=== PATIENT | male | born 1940 | race Caucasian/White ===

== ENCOUNTER 2018-09-20 15:54 | Emergency (ER) | payer MEDICARE, BC, SELFPAY ==
[2018-09-20 16:13] VITALS: BP 160/81; PULSE 92; RESP 16; TEMP 36.8; O2SAT 95
--- NOTE | 2018-09-20 16:22 | W.ED.GENAD ---
Discharge Plan Disposition Patient Disposition: HOME Condition: Fair Discharge Details Chief Complaint: GenMedical Clinical Impression: Dry mucous membranes, Epistaxis, Dry skin, Laceration Primary Care Provider: Madeline,Local ED Provider: Gloria Neri Home Meds and New Rx's Prescriptions: Continued aspirin [Aspir-81] 81 MG tablet,delayed release (DR/EC) 81 mg PO DAILY RF: 0 pantoprazole 40 MG tablet,delayed release (DR/EC) 1 tab PO DAILY RF: 0 hydrochlorothiazide 12.5 MG capsule 12.5 mg PO DAILY RF: 0 rosuvastatin [Crestor] 10 MG tablet 10 mg PO QPM RF: 0 lorazepam 0.5 MG tablet 0.5 mg PO QPM PRN (Reason: Sleep) Qty: 3 RF: 0 azithromycin [Zithromax TRI-FRANCES] 500 MG tablet 500 mg PO DAILY 5 Days RF: 0 Discharge Instructions Instructions: Laceration (ED), Nosebleed (ED) Additional Instructions: Encourage hydration. Tylenol and/or ibuprofen as needed for discomfort. Please begin nasal saline to both nares multiple times daily for your recurrent nosebleeds. If you develop sinus pain, headaches, fever/chills or other new/worsening symptoms please seek care urgently for this 1 In regard to the laceration in her left hand, please try to moisturize her skin more frequently. He may keep this covered to help prevent further infection. Please monitor for signs of infection including redness, warmth, drainage, increased pain, fever/chills. If this arise please seek care urgently once again. Please follow-up with primary care in 1-2 weeks for reevaluation of symptoms persist Discharge Data Discharge Date/Time-TO BE ENTERED AT DEPARTURE: 09/20/18 16:49 Medical Decision Making Patient is an 78-year-old male presenting today for evaluation of superficial laceration he sustained to the tip of the left thumb a few days ago as well as patient has recurrent sinusitis. He believes that he may have cut his left thumb when flossing his teeth. Denies any altered sensation. Is concerned that it is so tender that it may be infected. On exam, patient appears to have a crack in his skin at the distal aspect of the left thumb. No surrounding erythema, warmth, drainage. Wound appears to be healing well. I did advise using a thick lotion on the skin as his skin appears quite dry. He is up in covering this wound. I am concerned that his primary source of discomfort has been from him using the thumb and applying pressure over the wound. We did discuss the signs symptoms of infection when to seek care urgently once again for this. Nursing staff covered bacitracin and a Band-Aid to help protect the thumb and help with this,. In regard to his concern for sinus issues, patient reports that he just recently stopped a course of doxycycline. Patient was on a 10-day course of doxycycline prescribed by his primary care for concern for sinusitis. He denies any facial pain or sinus pressure. Rather, he is having recurrent left-sided epistaxis particularly after blowing the nose. Denies any fevers or chills. Denies sore throat or ear pain. Endorses a very mild cough which just recently began. On exam, patient does have clot in the left naris. No pain on palpation over his sinuses. Remainder of the exam is benign, lung lockhart are clear Advised at this point his symptoms seem most consistent with dry mucous membranes are likely leading to his recurrent epistaxis. Not see any evidence of sinusitis at this time and advised against recurrent antibiotics. Patient goes to [place] for his primary care although he lives here. I did offer him a local primary care physician which she has declined. I advised hydrating the mucous membranes with nasal saline. We discussed signs symptoms of infection of the left thumb and when to seek care urgently once again. All of his questions and concerns were addressed and he is in agreement this plan HPI General Mode of arrival: ambulatory. Date/Time Provider Initiated Documentation: 09/20/18 16:10. Limitations to Documentation: no limitations. Information obtained by: patient. History of Present Illness 78 year old M presents to the emergency department with the chief complaint of laceration left thumb, sinusitis, described as mild, Quality is described as aching (tip of left thumb with pressure applied over wound), and is localized to the left and upper extremity. Patient reports no radiation. Patient started experiencing this day(s) and it has been constant. No relieving factors improve symptom(s), No exacerbating factors reported . Patient notes cough; denies chest pain, fever/chills, headaches, loss of appetite, nausea/vomiting, rash, shortness of breath and weakness. Patient did receive the following treatments prior to arrival, none Related Data Home Medications Medication Instructions Recorded Confirmed aspirin [Aspir-81] 81 mg PO DAILY 05/27/14 06/07/17 pantoprazole 1 tab PO DAILY 06/24/15 06/07/17 azithromycin [Zithromax TRI-FRANCES] 500 mg PO DAILY 5 Days tab 06/07/17 hydrochlorothiazide 12.5 mg PO DAILY 06/07/17 06/07/17 lorazepam 0.5 mg PO QPM PRN #3 tab 06/07/17 rosuvastatin [Crestor] 10 mg PO QPM 06/07/17 06/07/17 Previous Rx's Medication Instructions Recorded azithromycin [Zithromax TRI-FRANCES] 500 mg PO DAILY 5 Days tab 06/07/17 lorazepam 0.5 mg PO QPM PRN #3 tab 06/07/17 Allergies Allergy/AdvReac Type Severity Reaction Status Date / Time amoxicillin [Amoxicillin] AdvReac Mild Skin Rash Unverified 06/07/17 14:04 Penicillins AdvReac Unknown as a kid Unverified 06/07/17 14:04 General Stated Complaint: GenMedical ANIBAL: 4 Review of Systems Constitutional Reports as per HPI and Denies headache(s) Eyes Reports as per HPI, Denies eye discharge and Denies irritation ENT Reports as per HPI, Denies change in voice, Denies headache(s), Reports epistaxis, Reports nasal congestion, Denies sinus pain, Denies sinus pressure, Denies sore throat, Denies throat swelling and Denies tongue swelling Cardiovascular Reports as per HPI, Denies chest pain and Denies dyspnea Respiratory Reports as per HPI, Reports cough (mild, just began today) and Denies dyspnea Gastrointestinal Reports as per HPI, Denies abdominal pain, Denies change in bowel habits, Denies nausea and Denies vomiting Integumentary/Breasts Reports as per HPI, Denies rash and Reports wounds (superficial wound left thumb) Neurologic Denies headache(s) Allergic/Immunologic Denies throat swelling and Denies tongue swelling [facility] Social History Smoking/Tobacco Use Status: Never Exam Const General: cooperative, healthy appearing, comfortable, no acute distress, well developed and well groomed Nutritional Appearance: average body habitus and well nourished Orientation: alert and awake [facility] Head: normal to inspection, normocephalic and atraumatic Ears: hearing grossly normal bilaterally, external ears normal and TM's normal bilaterally General nose exam: external nose normal and nares abnormal (clot notedin left nares, no active bleeding) Face and sinus: normal facial exam, sinuses nontender and face symmetric Mouth: oral mucosae normal, lip normal, tongue normal, oropharynx normal and moist mucous membranes Teeth and gingiva: dentition normal Throat: posterior oropharynx normal, tonsils normal and uvula midline Eyes General: appearance normal, both eyes and all related structures Neck Neck: normal visual inspection, full ROM, no lymphadenopathy and no meningeal signs Resp Effort & Inspection: normal respiratory effort, able to speak in complete sentences and no respiratory distress Auscultation: clear to auscultation bilaterally, no rales, no rhonchi and no wheezes Cardio Rate: regular rate Rhythm: regular rhythm Heart Sounds: S1 normal and S2 normal Skin General skin exam: no erythema (no surrounding erythema, warmth, discharge) Trauma: laceration (superficial 4mm crack in skin over distal left thumb) Neuro General: alert and awake Cognition: normal cognition Speech: speech normal Gait: normal gait Extrem Left upper extremity: full ROM, normal capillary refill and no joint enlargement; abnormal to inspection (laceration as above) Psych Appearance: grossly normal and well kempt Mental Status: mental status grossly normal Speech and Movement: speech and movement normal Course Vital Signs Temperature 36.8 C 09/20/18 16:13 Pulse 92 H 09/20/18 16:13 Respiratory Rate 16 09/20/18 16:13 Blood Pressure 160/81 H 09/20/18 16:13 Pulse Oximetry 95 09/20/18 16:13 Temperature 36.8 C 09/20/18 16:13 Temperature Source Temporal Artery Scan 09/20/18 16:13 Pulse 92 H 09/20/18 16:13 Respiratory Rate 16 09/20/18 16:13 Blood Pressure 160/81 H 09/20/18 16:13 Blood Pressure Position Sitting 09/20/18 16:13 Pulse Oximetry 95 09/20/18 16:13 Oxygen Delivery Method Room Air 09/20/18 16:13 Oxygen Flow Rate 0 09/20/18 16:13 Pain Level 0 09/20/18 16:13
== END 2018-09-20 16:49 | disposition home or self-care (01) ==
LOC: ER 16:50
PROVIDERS: Emergency Provider Physician Assistant
DX: R04.0 Epistaxis (principal); S61.012A Laceration without foreign body of left thumb without damage to nail, initial encounter; W45.8XXA Other foreign body or object entering through skin, initial encounter; L98.8 Other specified disorders of the skin and subcutaneous tissue
CPT/HCPCS: 99282

== ENCOUNTER 2019-01-06 15:15 | Emergency (ER) | payer MEDICARE, BC, SELFPAY ==
[2019-01-06 15:22] VITALS: BP 156/64; PULSE 85; RESP 20; TEMP 36.6; O2SAT 98
--- NOTE | 2019-01-06 15:47 | ED.GENADUL_ITS ---
Discharge Plan Disposition Patient Disposition: HOME Condition: Stable Discharge Details Chief Complaint: Vascular Clinical Impression: History of Raynaud's syndrome Primary Care Provider: Madeline,Local ED Provider: Christine Lombardi Home Meds and New Rx's Prescriptions: Continued aspirin [Aspir-81] 81 MG tablet,delayed release (DR/EC) 81 mg PO DAILY RF: 0 pantoprazole 40 MG tablet,delayed release (DR/EC) 1 tab PO DAILY RF: 0 hydrochlorothiazide 12.5 MG capsule 12.5 mg PO DAILY RF: 0 rosuvastatin [Crestor] 10 MG tablet 10 mg PO QPM RF: 0 lorazepam 0.5 MG tablet 0.5 mg PO QPM PRN (Reason: Sleep) Qty: 3 RF: 0 azithromycin [Zithromax TRI-FRANCES] 500 MG tablet 500 mg PO DAILY 5 Days RF: 0 Discharge Instructions Instructions: Raynaud Disease (ED) Additional Instructions: Take your regular medications as directed. Follow-up with your primary care doctor in 1 week for reevaluation. Return immediately to the emergency department with any worsening or concerning symptoms. Discharge Data Discharge Date/Time-TO BE ENTERED AT DEPARTURE: 01/06/19 15:56 Discharge Physician: Christine Lombardi Medical Decision Making 78-year-old male who presents with a complaint of right second,third, and fourth finger white discoloration to fingers that occurred prior to arrival and is now resolved. On patient's arrival to the emergency department, and after discussion with triage nurse, he was able to remember that he has a history of raynaud's syndrome. He states he could not remember the name of this syndrome while he was home and came to the emergency department for evaluation of this but states this is now resolved and states he would like to go home at this time. Patient is neurovascularly intact. There is no sign of trauma, infection or vascular abnormality noted to fingers of right hand. He is instructed to call his primary care doctor for reevaluation and return here anytime if worse. HPI General Mode of arrival: ambulatory . Date/Time Provider Initiated Documentation: 01/06/19 15:39 . Limitations to Documentation: no limitations . Information obtained by: patient . HPI Narrative: Pt is an 78yo M w/ a h/o Raynaud's syndrome who presents to the ED w/ a c/o a brief episode of numbness and white discoloration in R 2nd-4th fingers, most pronounced in the 3rd fingertip, a few hours ago. States the symptoms are now resolved. Pt states he was diagnosed with Raynaud's syndrome many years ago and could not remember the name of this condition while at home and came to the ER [facility] for diagnosis of this and reassurance. Pt denies any acute complaints at this time, injury, fever, numbness, tingling, pain. Related Data Home Medications Medication Instructions Recorded Confirmed aspirin [Aspir-81] 81 mg PO DAILY 05/27/14 06/07/17 pantoprazole 1 tab PO DAILY 06/24/15 06/07/17 azithromycin [Zithromax TRI-FRANCES] 500 mg PO DAILY 5 Days tab 06/07/17 hydrochlorothiazide 12.5 mg PO DAILY 06/07/17 06/07/17 lorazepam 0.5 mg PO QPM PRN #3 tab 06/07/17 rosuvastatin [Crestor] 10 mg PO QPM 06/07/17 06/07/17 Previous Rx's Medication Instructions Recorded azithromycin [Zithromax TRI-FRANCES] 500 mg PO DAILY 5 Days tab 06/07/17 lorazepam 0.5 mg PO QPM PRN #3 tab 06/07/17 Allergies Allergy/AdvReac Type Severity Reaction Status Date / Time amoxicillin [Amoxicillin] AdvReac Mild Skin Rash Unverified 06/07/17 14:04 Penicillins AdvReac Unknown as a kid Unverified 06/07/17 14:04 General Stated Complaint: Vascular ANIBAL: 4 Review of Systems Review of Systems All systems reviewed & are unremarkable except as noted in HPI and below PFSH Medical History History of pyloric stenosis as a child (Acute) Diverticulitis (Chronic) GERD (gastroesophageal reflux disease) (Chronic) HTN (hypertension) (Chronic) Surgical History H/O aortic valve replacement (Acute) H/O hemorrhoidectomy (Chronic) H/O shoulder surgery (Chronic) History of colon resection (Chronic) History of hernia repair (Chronic) History of tonsillectomy (Chronic) Social History Smoking/Tobacco Use Status: Never Drug use: Never Do you feel safe in your relationship?: Yes Exam Const General: cooperative, healthy appearing and no acute distress HENMT Head: normal to inspection Mouth: oral mucosae normal Eyes General: appearance normal, both eyes and all related structures Neck Neck: normal visual inspection Resp Effort & Inspection: normal respiratory effort and able to speak in complete sentences Cardio Rate: regular rate Skin General skin exam: no rashes or lesions noted Neuro General: alert, awake, oriented x3, gait normal, moves all extremities, normal light touch, pain and propioception and no focal motor deficits Motor: muscle tone normal throughout and strength 5/5 throughout Sensory Exam: no sensory deficits noted Extrem General: normal to inspection, full ROM, normal capillary refill, no clubbing, no cyanosis, no edema and not dysmorphic Psych Appearance: grossly normal Affect: normal affect Course Vital Signs Temperature 97.9 F 01/06/19 15:22 Pulse 85 01/06/19 15:22 Respiratory Rate 20 01/06/19 15:22 Blood Pressure 156/64 H 01/06/19 15:22 Pulse Oximetry 98 01/06/19 15:22 Temperature 97.9 F 01/06/19 15:22 Temperature Source Temporal Artery Scan 01/06/19 15:22 Pulse 85 01/06/19 15:22 Respiratory Rate 20 01/06/19 15:22 Respiratory Effort Non-Labored 01/06/19 15:22 Blood Pressure 156/64 H 01/06/19 15:22 Blood Pressure Position Sitting 01/06/19 15:22 Pulse Oximetry 98 01/06/19 15:22 Oxygen Delivery Method Room Air 01/06/19 15:22 Oxygen Flow Rate 0 01/06/19 15:22 Pain Level 0 01/06/19 15:22
[2019-01-06 15:52] VITALS: BP 156/64; PULSE 85; RESP 20; TEMP 36.6; O2SAT 98
== END 2019-01-06 15:56 | disposition home or self-care (01) ==
PROVIDERS: Emergency Provider Physician Assistant
DX: I73.00 Raynaud's syndrome without gangrene (principal); I10 Essential (primary) hypertension; Z95.2 Presence of prosthetic heart valve
CPT/HCPCS: 99282

== ENCOUNTER 2019-09-03 11:55 | Emergency (ER) | payer MEDICARE, BC, SELFPAY ==
[2019-09-03 11:59] VITALS: BP 139/62; PULSE 94; RESP 18; TEMP 37; O2SAT 97
--- NOTE | 2019-09-03 12:53 | W.ED.GENAD ---
Discharge Plan Disposition Patient Disposition: HOME Condition: Stable Discharge Details Chief Complaint: RespSymp Clinical Impression: Acute sinusitis, History of sinus surgery Primary Care Provider: Isaac Singh ED Provider: Christine Lombardi Home Meds and New Rx's Prescriptions: New levofloxacin [Levaquin] 750 mg tablet 750 mg PO DAILY 14 Days Qty: 14 RF: 0 prednisone 20 mg tablet See Rx Instructions .ROUTE .COMPLEX Qty: 12 RF: 0 benzonatate [Tessalon Perles] 100 mg capsule 100 mg PO TID PRN (Reason: cough) Qty: 14 RF: 0 lorazepam [Ativan] 1 mg tablet 1 mg PO QHS PRN (Reason: sleep) Qty: 7 RF: 0 methocarbamol 500 mg tablet 500 mg PO TID PRN (Reason: muscle spasm) Qty: 10 RF: 0 Continued aspirin [Aspir-81] 81 MG tablet,delayed release (DR/EC) 81 mg PO DAILY RF: 0 pantoprazole 40 MG tablet,delayed release (DR/EC) 1 tab PO DAILY RF: 0 rosuvastatin [Crestor] 10 MG tablet 10 mg PO QPM RF: 0 vitamin B complex Capsule 1 cap PO DAILY RF: 0 Dairy Aid 3,000 unit Tablet,Chewable 3,000 unit PO DAILY RF: 0 coenzyme Q10 [Co Q-10] 100 mg Capsule 300 mg PO DAILY RF: 0 lycopene 10 mg Capsule 10 mg PO DAILY RF: 0 cholecalciferol (vitamin D3) [Vitamin D3] 2,000 unit Tablet 2,000 unit PO DAILY RF: 0 calcium citrate 760 mg calcium /3.5 gram Granules 760 mg PO DAILY RF: 0 Probiotic 3 billion cell Capsule 3,000 mmu cells PO DAILY RF: 0 Prescott 3-6-9 1,200 mg Capsule 1 cap PO DAILY RF: 0 Cbd Oil 25 mg PO DAILY RF: 0 Discharge Instructions Instructions: Sinusitis (ED) Additional Instructions: Continue to use your Ailyn pot at home. Drink plenty of fluids. Take the antibiotics and steroids until finished. Use the cough medication as needed and directed. Take the Ativan at night to help with sleep. You will receive a call from care management regarding a follow-up appointment with ENT. You can also call the ENT office to schedule follow-up appointment for reevaluation. Return to the emergency department if you develop any worsening or new concerning symptoms. Referrals: Eric Pulliam DO [OSTEOPATHIC DOCTOR] - Roosevelt Garcia MD [ [facility] STAFF PHYSICIAN] - Discharge Data Discharge Physician: Christine Lombardi Medical Decision Making 79-year-old male who had sinus surgery in April 2019 with repeated sinus infections since then presents with sinus pressure, green nasal discharge, cough with green sputum for the past 6 days. Patient has been treated with multiple antibiotics including clindamycin, Levaquin, Ceftin, penicillin, tetracycline, etc. as well as 3-4 courses of steroids over the last few months. States he finished Ceftin 5 days ago and his symptoms returned the following day. His last regimen of steroids was 6 weeks ago. His is sick with cold-like symptoms which started 1 week ago. He denies fever, ear pain, sore throat, chest pain, shortness of breath, headache, neck pain. Patient expressed frustration with his ENT doctor as well as surgeon due to his frequent bouts of infection post surgery. He currently lives in [place] as well as [place]. He does not have a primary care doctor here. Patient has bilateral frontal and maxillary sinus tenderness. Remainder of ENT exam within normal limits. Lungs clear. Discussed with patient that his symptom presentation appears likely consistent with acute sinusitis and would recommend antibiotics. Patient was placed on care management list to arrange for follow-up appoint with the primary care doctor and for referral to ENT for additional evaluation and/or second opinion. He also requested a few doses of lorazepam that he has taken for sleep in the past and recently ran out. He has no cauda equina symptoms mainly complains of pain in his right lower back due to coughing and a prescription for muscle relaxer was given. He has no focal deficits. He has no urinary complaints. Usual and customary return precautions given prior to discharge. HPI General Mode of arrival: ambulatory. Date/Time Provider Initiated Documentation: 09/03/19 12:08. Limitations to Documentation: no limitations. Information obtained by: patient. History of Present Illness 79 year old M presents to the emergency department with the chief complaint of sinus congestion, pressure, green nasal discharge, cough, green sputum, Patient started experiencing this day(s) (6) and it has been constant. No relieving factors improve symptom(s), Other factors that worsen symptoms (cough worse at night ) . Patient notes cough, loss of appetite, malaise and other (pulled his R lower back due to coughing); denies chest pain, diaphoresis, fever/chills, headaches, nausea/vomiting, rash, seizure, shortness of breath, syncope and weakness. Patient did receive the following treatments prior to arrival, none Related Data Home Medications Medication Instructions Recorded Confirmed aspirin [Aspir-81] 81 mg PO DAILY 05/27/14 09/03/19 pantoprazole 1 tab PO DAILY 06/24/15 09/03/19 rosuvastatin [Crestor] 10 mg PO QPM 06/07/17 09/03/19 Cbd Oil 25 mg PO DAILY 09/03/19 Dairy Aid 3,000 unit PO DAILY 09/03/19 09/03/19 Prescott 3-6-9 1 cap PO DAILY 09/03/19 09/03/19 Probiotic 3,000 mmu cells PO DAILY 09/03/19 09/03/19 benzonatate [Tessalon Perles] 100 mg PO TID PRN #14 cap 09/03/19 calcium citrate 760 mg PO DAILY 09/03/19 09/03/19 cholecalciferol (vitamin D3) 2,000 unit PO DAILY 09/03/19 09/03/19 [Vitamin D3] coenzyme Q10 [Co Q-10] 300 mg PO DAILY 09/03/19 09/03/19 levofloxacin [Levaquin] 750 mg PO DAILY 14 Days #14 tab 09/03/19 lorazepam [Ativan] 1 mg PO QHS PRN #7 tab 09/03/19 lycopene 10 mg PO DAILY 09/03/19 09/03/19 methocarbamol 500 mg PO TID PRN #10 tab 09/03/19 prednisone See Rx Instructions .ROUTE 09/03/19 .COMPLEX #12 tab vitamin B complex 1 cap PO DAILY 09/03/19 09/03/19 Previous Rx's Medication Instructions Recorded benzonatate [Tessalon Perles] 100 mg PO TID PRN #14 cap 09/03/19 levofloxacin [Levaquin] 750 mg PO DAILY 14 Days #14 tab 09/03/19 lorazepam [Ativan] 1 mg PO QHS PRN #7 tab 09/03/19 methocarbamol 500 mg PO TID PRN #10 tab 09/03/19 prednisone See Rx Instructions .ROUTE 09/03/19 .COMPLEX #12 tab Allergies Allergy/AdvReac Type Severity Reaction Status Date / Time sulfamethoxazole Allergy turns red Unverified 09/03/19 12:08 [From Bactrim] trimethoprim [From Bactrim] Allergy turns red Unverified 09/03/19 12:08 amoxicillin [Amoxicillin] AdvReac Mild Skin Rash Unverified 06/07/17 14:04 Penicillins AdvReac Unknown as a kid Unverified 06/07/17 14:04 General Stated Complaint: RespSymp ANIBAL: 3 Review of Systems All systems reviewed & are unremarkable except as noted in HPI and below Constitutional Constitutional: Reports as per HPI, Denies chills and Denies fever(s) Eyes Eyes: Denies blurry vision ENT Ears, Nose, Mouth, and Throat: Denies dizziness, Reports nasal congestion, Reports nasal discharge, Reports sinus pain, Reports sinus pressure, Denies sore throat and Denies throat swelling Cardiovascular Cardiovascular: Denies chest pain and Denies dyspnea Respiratory Respiratory: Reports cough and Denies dyspnea Gastrointestinal Gastrointestinal: Denies abdominal pain, Denies diarrhea and Denies vomiting Genitourinary Genitourinary: Denies hematuria and Denies dysuria Musculoskeletal Musculoskeletal: Denies back pain and Denies numbness Integumentary/Breasts Skin/Breast: Denies lesions and Denies rash Neurologic Neurologic: Denies dizziness, Denies focal weakness and Denies numbness Allergic/Immunologic Allergic/Immunologic: Denies throat swelling ON LICENSE OF [facility] Social History Smoking/Tobacco Use Status: Never Alcohol Intake: current Alcohol Intake frequency: holidays/special occasions only Drug use: Never Do you feel safe in your relationship?: Yes Exam Const General: cooperative, healthy appearing and no acute distress HENMT Head: normal to inspection Ears: hearing grossly normal bilaterally, external ears normal and TM's normal bilaterally General nose exam: external nose normal Face and sinus: sinus tenderness frontal (bilateral ) and maxillary (bilateral ) Mouth: oral mucosae normal Throat: posterior oropharynx normal Eyes General: appearance normal, both eyes and all related structures Neck Neck: normal visual inspection Resp Effort & Inspection: normal respiratory effort and able to speak in complete sentences Auscultation: clear to auscultation bilaterally Cardio Rate: regular rate Rhythm: regular rhythm Skin General skin exam: no rashes or lesions noted Neuro General: alert, awake and oriented x3 Motor: muscle tone normal throughout Extrem General: normal to inspection and full ROM Psych Appearance: grossly normal Affect: normal affect Course Vital Signs Vital signs: Vital Signs Temperature 98.6 F 09/03/19 11:59 Pulse 94 H 09/03/19 11:59 Respiratory Rate 18 09/03/19 11:59 Blood Pressure 139/62 09/03/19 11:59 Pulse Oximetry 97 09/03/19 11:59 Temperature 98.6 F 09/03/19 11:59 Temperature Source Temporal Artery Scan 09/03/19 11:59 Pulse 94 H 09/03/19 11:59 Respiratory Rate 18 09/03/19 11:59 Respiratory Effort Non-Labored 09/03/19 12:24 Respiratory Depth Normal 09/03/19 12:24 Blood Pressure 139/62 09/03/19 11:59 Blood Pressure Position Sitting 09/03/19 11:59 Pulse Oximetry 97 09/03/19 11:59 Oxygen Delivery Method Room Air 09/03/19 11:59 Oxygen Flow Rate 0 09/03/19 11:59
--- NOTE | 2019-09-03 17:02 | NUR.NOTE ---
Nursing Note: Referral faxed to ENT for follow up and to Care Management to establish care with PCP. Cristine Alfonso.
== END 2019-09-03 13:21 | disposition home or self-care (01) ==
PROVIDERS: Emergency Provider Physician Assistant; PCP Internal Medicine
DX: R09.81 Nasal congestion (principal); R05 Cough; J01.81 Other acute recurrent sinusitis; Y83.8 Other surgical procedures as the cause of abnormal reaction of the patient, or of later complication, without mention of misadventure at the time of the procedure
CPT/HCPCS: 99283

== ENCOUNTER 2020-01-17 20:56 | Outpatient (REF) | payer MEDICARE, BC, SELFPAY ==
[2020-01-17 19:31] LABS: Anion Gap 6.2 mmol/L (3-11); BUN 16 mg/dL (7-18); CO2 29.8 mmol/L (21.0-32.0); CREATININE 1.48 mg/dL (0.70-1.30); Calcium 9.5 mg/dL (8.5-10.1); Chloride 95 mmol/L (98-107); Estimated GFR 45.62 (mL/min/1.73m2); Glucose 82 mg/dL (74-106); Potassium 4.7 mmol/L (3.5-5.1); Sodium 131 mmol/L (136-145); TSH (W/Ref FT4) 0.52 uIU/mL (0.36-3.74)
[2020-01-17 19:46] LABS: Abs Immature Grans 0.02 k/cumm (0.0-0.09); Absolute Basophil Count 0.02 k/cumm (0.0-0.2); Absolute Eosinophil Count 0.29 k/cumm (0.0-0.7); Absolute Lymphocyte Count 2.16 k/cumm (1.2-3.4); Absolute Monocyte Count 0.68 k/cumm (0.11-0.7); Absolute Neutrophil Count 5.15 k/cumm (1.2-6.7); Basophils % 0.2; Eosinophils % 3.5; HGB 16.1 g/dL (13.5-17.5); Immature Grans % 0.2 %; Mean Corp. HGB Concentration 34.3 g/dL (32.0-36.0); Mean Corpuscular Hemoglobin 30.2 pg (27.0-33.0); Mean Corpuscular Volume 88.2 fL (80-95); Mean Platelet Volume 11.3 fL (8.0-11.0); Monocytes % 8.2; Neutrophils % 61.9; Platelet Count 175 x1000/uL (130-400); RBC 5.33 m/cumm (4.50-6.00); RBC Distribution Width 13.6 % (11.8-14.1); White Blood Cell Count 8.32 k/cumm (4.4-10.8)
== END 2020-01-17 21:16 ==
LOC: LBN 20:56
PROVIDERS: PCP Family Medicine; Visit Provider Family Medicine
DX: R42 Dizziness and giddiness (principal); G47.00 Insomnia, unspecified
CPT/HCPCS: 80048; 84443; 85025

== ENCOUNTER 2020-01-27 18:28 | Emergency (ER) | payer MEDICARE, BC, SELFPAY ==
[2020-01-27 18:50] VITALS: BP 154/71; PULSE 79; RESP 18; TEMP 36.6; O2SAT 96
--- NOTE | 2020-01-27 18:52 | W.ED.GENAD ---
Discharge Plan Disposition Patient Disposition: HOME Condition: Stable Discharge Details Chief Complaint: Laceration Clinical Impression: Skin tear of left hand without complication Primary Care Provider: Umesh Covarrubias ED Provider: Estefany Mark Home Meds and New Rx's Prescriptions: Continued gabapentin 300 mg capsule 300 mg PO QHS PRN (Reason: insomnia) Qty: 90 RF: 3 mupirocin 2 % ointment 1 applic TP TID Qty: 22 RF: 11 lisinopril 20 mg tablet 20 mg PO DAILY Qty: 30 RF: 0 lorazepam 1 mg tablet 1 mg PO QHS PRN (Reason: insomnia) Qty: 10 RF: 0 aspirin [Aspir-81] 81 MG tablet,delayed release (DR/EC) 81 mg PO DAILY RF: 0 pantoprazole 40 MG tablet,delayed release (DR/EC) 1 tab PO DAILY RF: 0 rosuvastatin [Crestor] 10 MG tablet 10 mg PO QPM RF: 0 vitamin B complex Capsule 1 cap PO DAILY RF: 0 Dairy Aid 3,000 unit Tablet,Chewable 3,000 unit PO DAILY RF: 0 coenzyme Q10 [Co Q-10] 100 mg Capsule 300 mg PO DAILY RF: 0 lycopene 10 mg Capsule 10 mg PO DAILY RF: 0 cholecalciferol (vitamin D3) [Vitamin D3] 2,000 unit Tablet 2,000 unit PO DAILY RF: 0 calcium citrate 760 mg calcium /3.5 gram Granules 760 mg PO DAILY RF: 0 Probiotic 3 billion cell Capsule 3,000 mmu cells PO DAILY RF: 0 [place] 3-6-9 1,200 mg Capsule 1 cap PO DAILY RF: 0 Discharge Instructions Instructions: Skin Tear (ED) Additional Instructions: Follow up with primary care provider in 3-5 days. Return to ED sooner if any worsening or concerns. Increase oral fluids. Keep wound dressed tonight may change tomorrow morning. If bleeding soaked through dressing tonight please return to the ED. Otherwise watch for signs of infection including red streaks, swelling, drainage or any concerns. Referrals: Umesh Covarrubias DO [Primary Care Provider] - Medical Decision Making 79-year-old male presents with a left hand skin tear after accidentally hitting his hand with a hammer prior to arrival. Patient states it was bleeding for approximately 1 hour he was unable to get it stopped. Upon initial exam I do not feel this wound is suturable, is very superficial. Nonadherent petroleum dressing applied with sterile 2 x 2 and pressure dressing with Coban. Patient instructed to keep on until tomorrow morning to return if bleeding soaked through. Otherwise I feel that this wound will do well and will heal without any intervention. This text was generated using Everdreamation system, please disregard any oddities of phrase or misspellings. HPI General Mode of arrival: ambulatory. Date/Time Provider Initiated Documentation: 01/27/20 18:30. Limitations to Documentation: no limitations. Information obtained by: patient. HPI Narrative: 79-year-old male presents with left hand laceration which occurred approximately an hour and a half prior to arrival. Patient was hammering and excellently hit his hand with a hammer. He states that he was having a hard time getting the wound to stop bleeding. At this time there is no active bleeding. There is a V-shaped skin tear noted to the lateral aspect of his thenar eminence. At this time I do not feel it is suturable, unknown last tetanus shot. He has full range of motion noted to his hand, no other complaints. Related Data Home Medications Medication Instructions Recorded Confirmed aspirin [Aspir-81] 81 mg PO DAILY 05/27/14 01/27/20 pantoprazole 1 tab PO DAILY 06/24/15 01/27/20 rosuvastatin [Crestor] 10 mg PO QPM 06/07/17 01/27/20 Dairy Aid 3,000 unit PO DAILY 09/03/19 01/27/20 [place] 3-6-9 1 cap PO DAILY 09/03/19 01/27/20 Probiotic 3,000 mmu cells PO DAILY 09/03/19 01/27/20 calcium citrate 760 mg PO DAILY 09/03/19 01/27/20 cholecalciferol (vitamin D3) 2,000 unit PO DAILY 09/03/19 01/27/20 [Vitamin D3] coenzyme Q10 [Co Q-10] 300 mg PO DAILY 09/03/19 01/27/20 lycopene 10 mg PO DAILY 09/03/19 01/27/20 vitamin B complex 1 cap PO DAILY 09/03/19 01/27/20 gabapentin 300 mg capsule 300 mg PO QHS PRN #90 cap 01/17/20 01/27/20 mupirocin 2 % topical ointment 1 applic TP TID #22 gm 01/17/20 01/27/20 lisinopril 20 mg tablet 20 mg PO DAILY #30 tab 01/20/20 01/27/20 lorazepam 1 mg tablet 1 mg PO QHS PRN #10 tab 01/20/20 01/27/20 Previous Rx's Medication Instructions Recorded gabapentin 300 mg capsule 300 mg PO QHS PRN #90 cap 01/17/20 mupirocin 2 % topical ointment 1 applic TP TID #22 gm 01/17/20 lisinopril 20 mg tablet 20 mg PO DAILY #30 tab 01/20/20 lorazepam 1 mg tablet 1 mg PO QHS PRN #10 tab 01/20/20 Allergies Allergy/AdvReac Type Severity Reaction Status Date / Time sulfamethoxazole Allergy turns red Unverified 01/27/20 18:57 [From Bactrim] trimethoprim [From Bactrim] Allergy turns red Unverified 01/27/20 18:57 amoxicillin [Amoxicillin] AdvReac Mild Skin Rash Unverified 01/27/20 18:57 Penicillins AdvReac Unknown as a kid Unverified 01/27/20 18:57 General ANIBAL: 3 Review of Systems Narrative: Constitutional: Negative for weight loss, alert and oriented, well groomed, normal body habitus, appears comfortable. HEENT: Denies trauma, headaches, blurry vision, nasal discharge, sore throat, trouble swallowing. Chest: Denies chest pain, palpitations, irregular rhythm, hypertension. Respiratory: Denies Shortness of breath, cough, hemoptysis. Hematologic: Denies easy bruising, intolerance to heat or cold, hair loss. [facility] Medical History Aortic valve disorder (Acute) Cerebrovascular disease (Acute) CKD (chronic kidney disease) (Acute) Depressive disorder (Acute) Diverticular disease of colon (Acute) Diverticulitis (Chronic) Dizziness and giddiness (Acute) GERD (gastroesophageal reflux disease) (Chronic) Headache (Acute) History of pyloric stenosis as a child (Acute) HTN (hypertension) (Chronic) Hypercholesterolemia (Acute) Hyponatremia (Acute) Iron deficiency anemia (Acute) Malaise and fatigue (Acute) Peripheral vascular disease (Chronic) Prostate cancer (Chronic) White coat syndrome with hypertension (Chronic) Tests in the 120s at home Surgical History H/O aortic valve replacement (Acute) H/O hemorrhoidectomy (Chronic) H/O shoulder surgery (Chronic) History of colon resection (Chronic) History of hernia repair (Chronic) History of tonsillectomy (Chronic) Family History Father Substance abuse Mother Breast cancer Heart disease Sister Cancer Heart disease Hypertension Social History Smoking/Tobacco Use Status: Former Tobacco Use Quit Date: 09/07/1964 Tobacco: How many years used: 14 Alcohol Intake: current Alcohol Intake frequency: a few times a month Drug use: Never Substance use type: does not use Adopted: No Caregiver/Support person: No Foster care: No Household members: spouse Housing: house Do you need help understanding health information?: Never 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 Appears stated age. Normal body habitus. Head: Normocephalic, no trauma. Chest: RRR, Normal S1, S2, distal pulses intact. Resp: Lungs clear to auscultation bilaterally, no wheezes, rales, or rhonchi. Musculoskeletal: Normal gait, 5/5 strength to all four extremities. Skin: Skin tear noted to the lateral aspect of her left hand. Capillary refill less than 2 sec. Neurologic: Cranial nerves II-XII intact. Alert and oriented x 3. DTR's intact. Hematologic/Lymphatic: No ecchymosis, no lymphadenopathy. Course Lab/Test Results Lab/Test Results: Laboratory Tests Range/Units 01/27/20 01/27/20 01/27/20 18:35 18:35 18:35 WBC Cancelled RBC Cancelled Hgb Cancelled Hct Cancelled MCV Cancelled MCH Cancelled MCHC Cancelled RDW Cancelled Plt Count Cancelled MPV Cancelled Immature Gran % Cancelled Neutrophils % Cancelled Band Neutrophils % Cancelled Lymphocytes % Cancelled Atypical Lymphs % Cancelled Monocytes % Cancelled Eosinophils % Cancelled Basophils % Cancelled Metamyelocytes % Cancelled Myelocytes % Cancelled Promyelocytes % Cancelled Absolute Neutrophils Cancelled Absolute Lymphocytes Cancelled Absolute Monocytes Cancelled Absolute Eosinophils Cancelled Absolute Basophils Cancelled Nucleated RBCs Cancelled Differential Comment Cancelled Other Cell Type Cancelled RBC Morphology Cancelled Polychromasia Cancelled Hypochromasia Cancelled Poikilocytosis Cancelled Basophilic Stippling Cancelled Anisocytosis Cancelled Microcytosis Cancelled Macrocytosis Cancelled Spherocytes Cancelled Target Cells Cancelled Tear Drop Cells Cancelled Ovalocytes Cancelled Stomatocytes Cancelled [place] Bodies Cancelled [place] Cells Cancelled Acanthocytes (Spur) Cancelled Schistocytes Cancelled PT Cancelled INR Cancelled Sodium Cancelled Potassium Cancelled Chloride Cancelled Carbon Dioxide Cancelled Anion Gap Cancelled BUN Cancelled Creatinine Cancelled Estimated GFR/1.73 m2 Cancelled Glucose Cancelled Calcium Cancelled Total Bilirubin Cancelled AST Cancelled ALT Cancelled Alkaline Phosphatase Cancelled Troponin I Cancelled Total Protein Cancelled Albumin Cancelled
== END 2020-01-27 19:15 | disposition home or self-care (01) ==
LOC: ER 19:18
PROVIDERS: Emergency Provider Registered Nurse Emergency; PCP Family Medicine
DX: S61.412A Laceration without foreign body of left hand, initial encounter (principal); W27.0XXA Contact with workbench tool, initial encounter; I12.9 Hypertensive chronic kidney disease with stage 1 through stage 4 chronic kidney disease, or unspecified chronic kidney disease; N18.9 Chronic kidney disease, unspecified
CPT/HCPCS: 80053; 99282; 84484; 85025; 85610

== ENCOUNTER 2020-02-06 03:55 | Outpatient (CLI) | payer MEDICARE, BC, SELFPAY ==
[2020-02-06 14:03] LABS: Anion Gap 3.9 mmol/L (3-11); BUN 16 mg/dL (7-18); CO2 29.1 mmol/L (21.0-32.0); CREATININE 1.52 mg/dL (0.70-1.30); Calcium 9.8 mg/dL (8.5-10.1); Chloride 97 mmol/L (98-107); Estimated GFR 44.24 (mL/min/1.73m2); Glucose 105 mg/dL (74-106); Sodium 130 mmol/L (136-145)
[2020-02-07 10:10] LABS: Lyme Ab w Rflx to Lyme Confirm Negative (Negative)
[2020-02-08 19:46] LABS: Anaplasma phagocytophilum Negative (Negative); B. miyamotoi PCR Negative (Negative); Babesia divergens/MO-1 Negative (Negative); Babesia duncani Negative (Negative); Babesia microti Negative (Negative); Ehrlichia chaffeensis Negative (Negative); Ehrlichia ewingii/canis Negative (Negative); Ehrlichia muris eauclairensis Negative (Negative)
== END 2020-02-06 04:15 ==
PROVIDERS: PCP Family Medicine; Visit Provider Family Medicine
DX: E87.1 Hypo-osmolality and hyponatremia (principal); R42 Dizziness and giddiness
CPT/HCPCS: 36415; 80048; 87798; 86618

== ENCOUNTER 2020-02-13 14:21 | Outpatient (REF) | payer MEDICARE, BC, SELFPAY ==
[2020-03-12 13:34] LABS: Fungus Smear No Fungi Seen
== END 2020-02-13 14:41 ==
LOC: NCHCN 14:21
PROVIDERS: PCP Family Medicine; Visit Provider Internal Medicine
DX: R05 Cough (principal)
CPT/HCPCS: 87102; 87116; 87206; 87070; 87205

== ENCOUNTER 2020-02-17 15:15 | Outpatient (REF) | payer MEDICARE, BC, SELFPAY ==
[2020-02-17 19:29] LABS: Sodium, Urine 36 mmol/L
[2020-02-19 16:27] LABS: Osmolality, Urine 310 mOsm/kg (150-1,150)
== END 2020-02-17 15:35 ==
LOC: LBN 15:15
PROVIDERS: PCP Family Medicine; Visit Provider Family Medicine
DX: E87.1 Hypo-osmolality and hyponatremia (principal)
CPT/HCPCS: 83935; 84300

== ENCOUNTER 2020-02-23 03:32 | Outpatient (CLI) | payer MEDICARE, BC, SELFPAY ==
--- NOTE | 2020-02-23 12:35 | DI.CT_ITS ---
EXAM: CT CHEST WO CLINICAL HISTORY: COUGH, R05 TECHNIQUE: Imaging Protocol: Axial computed tomography images with coronal and sagittal reformatted images were created and reviewed CONTRAST MATERIAL: Noncontrast COMPARISON: CR CHEST 2 VIEWS PA,LAT from 06/07/2017 FINDINGS: Tracheobronchial tree: Patent where visualized. Mediastinum and Rosa Elena: No dominant adenopathy or fluid collection. Pulmonary parenchyma: There is biapical pleural scarring. There are small patchy airspace densities i n the infra superolateral right upper lobe and at the antro inferior right low right lower lobe. Smal l airspace densities also seen in the inferior left lower lobe.. Pleura: No effusion or pneumothorax. Heart: The heart is not dilated. Mitral annular calcification. Mild coronary artery calcifications Aorta: Thoracic aorta non-dilated. Aortic valve prosthesis. Mild aortic calcification. Upper abdomen: Unremarkable. Lymph nodes: Within normal limits. Bones: Left shoulder prosthesis. Old right rib fractures. Degenerative changes in the spine. IMPRESSION: Mild multifocal areas of patchy airspace densities in both lungs, consistent with multi focal pneumon itis. RADIATION DOSE DELIVERED: 392.37mGy.cm Total DLP DATA REPOSITORY: All CT scans at this facility are submitted to the National Radiology Data Registry (NRDR) Dose Index Registry (DIR) with the [employer] (ACR). RADIATION OPTIMIZATION: All CT scans at this facility use at least one of these dose optimization te chniques: automated exposure control; mA and/or kV adjustment per patient size (includes targeted exa ms where dose is matched to clinical indication); or iterative reconstruction.
== END 2020-02-23 03:52 ==
PROVIDERS: PCP Family Medicine; Visit Provider Internal Medicine
DX: R05 Cough (principal); Z95.2 Presence of prosthetic heart valve; J98.4 Other disorders of lung; J18.9 Pneumonia, unspecified organism
CPT/HCPCS: 71250

== ENCOUNTER 2020-03-01 01:57 | Outpatient (CLI) | payer MEDICARE, BC, SELFPAY ==
--- NOTE | 2020-03-01 06:45 | DI.US_ITS ---
APPROVED REPORT EXAM: Comprehensive 2D, Doppler, and color-flow Echocardiogram Patient Location: Out-Patient Anesthesiology Medical Doctor: Nery Murray RDCS (AE) Indications: AVR, HTN, Dizziness Other Information Study Quality: Adequate Conclusion Left Ventricle : The left ventricle is normal size. The left ventricular systolic function is normal. The left ventricular ejection fraction is within the normal range. There is normal left ventricular wall thickness. There is normal LV segmental wall motion. Transmitral Doppler flow pattern suggests i mpaired LV relaxation. LVEF is 50%. Right Ventricle : The right ventricle is normal size. The right ventricular systolic function is norm al. Atria : The left atrium size is normal. The right atrium size is normal. Aortic Valve : Bioprosthetic aortic valve is present. Trace aortic regurgitation. There is no prosthe tic aortic valvular stenosis. Great Vessels : IVC is normal in size and collapses >50% with inspiration. The aortic root is normal in size. The ascending aorta is mildly dilated. Please see remainder of study for additional details. There is no prior echocardiogram available for comparison. Wall motion Left Ventricle The left ventricle is normal size. The left ventricular systolic function is normal. The left ventric ular ejection fraction is within the normal range. There is normal left ventricular wall thickness. T here is normal LV segmental wall motion. Transmitral Doppler flow pattern suggests impaired LV relaxa tion. There is no ventricular septal defect visualized. LVEF is 50%. Right Ventricle The right ventricle is normal size. The right ventricular systolic function is normal. Atria The left atrium size is normal. The right atrium size is normal. The interatrial septum is intact wit h no evidence for an atrial septal defect. Aortic Valve Bioprosthetic aortic valve is present. There is no prosthetic aortic valvular stenosis. Trace aortic regurgitation. Mitral Valve Moderate mitral annular calcification. No evidence of mitral valve stenosis. Trace mitral regurgitati on. Tricuspid Valve The tricuspid valve is normal in structure. There is no tricuspid valve stenosis. Mild tricuspid regu rgitation. Pulmonic Valve The pulmonary valve is normal in structure. There is no pulmonic valvular stenosis. Trace pulmonic re gurgitation. Great Vessels The aortic root is normal in size. The ascending aorta is mildly dilated. IVC is normal in size and c ollapses >50% with inspiration. Pericardium There is no pericardial effusion. 2D Dimensions IVSD d PLAX 0.95 cm M: 0.6-1.2 LV Vol A2C d MOD 64.2 mL LVPW d PLAX 0.89 cm M: 0.6 - 1.2 LV Vol A4C d MOD 53.0 mL LVID d PLAX 4.00 cm M: 4.2 - 5.8 LA vol/ BSA A2C s A-L 21.5 mL/m2 LVDs 3.05 cm M: 2.5 - 4.0 LA vol/ BSA A4C s A-L 15.2 mL/m2 Ao Root d 2.61 cm M: 3.1 - 3.7 LA Vol/ BSA Biplane s A-L 18.6 mL/m2 RA Area A4C 10.66 cm2 LA Area A4C s MOD 12.58 cm2 RA Vol/ BSA A4C s A-L 13.8 mL/m2 LA Area A2C s MOD 14.54 cm2 Ao Asc Diam d 3.52 cm M: 2.6 - 3.4 LV EF A4C MOD 46.3 % LV EF Teichholz 45.7 % LV EF A2C MOD 50.0 % LVEF (Bowden's) 47.24 % M: 52 - 72 LV EF Biplane MOD 47.2 % LV Volume 45.69 mL M: 62 - 150 SV 27.69 mL LV Volume Index 25.52 mL/m2 M: 34 - 74 SV Index 15.48 mL/m2 LV Vol Biplane MOD 58.6 mL FS 22.40 % M-Mode TAPSE 1.58 cm (M/F) >1.7 LV Diastology MV E' medial 0.055 (>0.07 m/s) E/A Ratio 0.7 LV E/e MED 13.75 (<14) MV E Vmax 0.76 (0.4-1.3 m/s) MV E' lateral 0.090 (>0.1 m/s) MV A Vmax 1.05 (0.4-1.3 m/s) LV E/e LAT 8.40 (<14) MV E/A Ratio 0.70 MV E/E' medial 13.79 MV E/E' lateral 8.45 Aortic Valve LVOT Area 3.40 cm2 AoV Area Vmax 2.39 cm2 LVOT Vmax 1.40 m/s AoV Area/ BSA (Vmax) 1.34 cm2/m2 LVOT Mean Michael. 0.95 m/s MP Mean Michael. 2.13 cm2 LVOT Peak Grad 7.8 mmHg MP Mean Michael. Index 1.19 cm2/m2 LVOT Mean Grad 4.3 mmHg AR DT 1625 msec LVOT VTI 0.244 m AR PHT 471 msec LVOT Diam s 2.05 cm AoV Vmax 1.99 m/s Velocity Ratio 0.70 AoV Mean Michael. 1.52 m/s AoV Peak Grad 15.9 mmHg LVOT SV 83.06 mL AoV Mean Grad 9.9 mmHg AoV VTI 0.416 m AoV Area VTI 2.00 cm2 AoV Area/ BSA (VTI) 1.12 cm/m2 Mitral Valve MV DT 232 (160-240 msec) MV PHT 67 msec MV Area PHT 3.27 cm2 Pulmonary Valve PV Vmax 0.81 (0.5-1.5 m/s) RVOT Peak Gr. 0.84 mmHg PV Peak Grad 2.6 mmHg RVOT Mean Gr. 0.50 mmHg PV Mean Grad 1.7 mmHg RVOT VTI 0.101 m PV VTI 0.172 m RVOT Vmax 0.46 m/s Tricuspid Valve TR Peak Grad 19.5 mmHg TR Vmax 2.21 m/s RA Pressure 3.00 mmHg RVSP (TR) 22.5 mmHg
== END 2020-03-01 02:17 ==
PROVIDERS: PCP Family Medicine; Visit Provider Family Medicine
DX: I10 Essential (primary) hypertension (principal); R42 Dizziness and giddiness; Z95.2 Presence of prosthetic heart valve
CPT/HCPCS: 93306

== ENCOUNTER 2020-03-06 01:45 | Outpatient (CLI) | payer MEDICARE, BC, SELFPAY ==
--- NOTE | 2020-03-06 11:15 | DI.US_ITS ---
EXAM: US CAROTID CLINICAL HISTORY: Persistent dizziness, R42. TECHNIQUE: Ultrasound carotids performed using grayscale, color-flow, and spectral Doppler imaging. COMPARISON: No exams were available for comparison FINDINGS: RIGHT CAROTID ARTERY: Plaque: Moderate plaque in the right carotid bulb. Velocity elevation: None. LEFT CAROTID ARTERY: Plaque: Severe plaque seen in the carotid bulbs and the origins of both the internal and external car otid arteries. Velocity elevation: In the left proximal internal carotid artery. VERTEBRAL ARTERIES: Antegrade flow. Measurements: R Bulb: 34.7cm/s PS / 9.7cm/s ED R CCA: 65.1cm/s PS / 11.6cm/s ED R ECA: 86 centimeters/second PS/19 centimeters/second ED R ICA Prox: 78.8cm/s PS /15.9cm/s ED R ICA Mid: 96.9cm/s PS / 22.4cm/s ED R ICA Distal: 51.8cm/s PS /12.6cm/s ED R Vert: 45.3cm/s PS / 9.3cm/s ED R SVR: 1.49 R DVR: 1.93 L Bulb: 105.3cm/s PS /25.5cm/s ED L CCA: 74.5cm/s PS / 14.5cm/s ED L ECA: 153 centimeters/second PS/16 centimeters/second ED L ICA Prox:210 centimeters/second PS/38 centimeters/second ED L ICA Mid: 142 centimeters/secondPS/21 centimeters/second ED L ICA Distal: 90.4cm/s PS / 21.7cm/s ED L Vert: 64.3cm/s PS / 18.8cm/s ED L SVR: 2.82 L DVR: 2.62 IMPRESSION: 1. No hemodynamically significant stenosis on the right. 2. 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 Criteria for Carotid Stenosis: Normal: ICA PSV <125 cm/s no plaque or intimal thickening is visible. <50% stenosis: ICA PSV <125 cm/s and plaque or intimal thickening is visible. 50-69% stenosis: ICA PSV is 125-250 cm/s and plaque is visible. >70% stenosis to near occlusion: ICA PSV >250 cm/s with visible plaque and luminal narrowing. DATA REPOSITORY:
--- NOTE | 2020-03-06 11:15 | DI.US_ITS ---
EXAM: US ABDOMEN CLINICAL HISTORY: Abdominal distension, possible ascites TECHNIQUE: Ultrasound abdomen performed using standard protocol. COMPARISON: No exams were available for comparison FINDINGS: ABDOMINAL AORTA AND IVC: Visualized portions normal caliber. PANCREAS: Normal where visualized. LIVER: Normal. Hepatopedal flow in the Portal Vein. GALLBLADDER: No evidence of cholelithiasis. No evidence of wall thickening. No pericholecystic fluid identified. BILIARY SYSTEM: Common bile duct measures 4 mm. No intrahepatic biliary ductal dilation. HOWARD'S SIGN: Negative. KIDNEYS: Kidneys are symmetric in size. No evidence of renal calculi. No evidence of hydronephrosis. No renal mass or cyst identified. SPLEEN: Not enlarged. ASCITES: None seen. IMPRESSION: Normal sonographic appearance of the upper abdomen. DATA REPOSITORY:
== END 2020-03-06 02:05 ==
PROVIDERS: PCP Family Medicine; Visit Provider Family Medicine
DX: R42 Dizziness and giddiness (principal); I65.22 Occlusion and stenosis of left carotid artery; R14.0 Abdominal distension (gaseous)
CPT/HCPCS: 76700; 93880

== ENCOUNTER 2020-04-27 14:13 | Outpatient (CLI) | payer MEDICARE, BC, SELFPAY ==
--- NOTE | 2020-04-27 14:45 | DI.RAD_ITS ---
EXAM: XR LUMBAR SPINE COMPLETE CLINICAL HISTORY: Pain after heavy lifting, r/o compression fracture, M62.830 MUSCLE SPASM OF. TECHNIQUE: 2D digital imaging was performed. COMPARISON: No exams were available for comparison FINDINGS: Vertebral bodies are well maintained in height. There is severe narrowing of the L1-2 through L3-4 d isc space is well as the L5-S1 disc space. There is mild disc space narrowing at L4-5. There are pr ominent facet joint degenerative changes at L4-5 and L5-S1. There is slight spondylolisthesis at L4- 5. There is a mild degenerative scoliosis. Hypertrophic changes are seen of the SI joints. Vascula r calcifications are seen. Anastomotic sutures are seen in the low pelvis. IMPRESSION: Multilevel advanced degenerative disc changes. DATA REPOSITORY: RADIATION DOSE DELIVERED:
== END 2020-04-27 14:33 ==
PROVIDERS: PCP Family Medicine; Visit Provider Family Medicine
DX: M43.16 Spondylolisthesis, lumbar region (principal); M41.56 Other secondary scoliosis, lumbar region
CPT/HCPCS: 72110

== ENCOUNTER 2020-05-14 13:46 | Emergency (ER) | payer MEDICARE, BC, SELFPAY ==
[2020-05-14] VITALS (42 sets, daily range): BP systolic 105–138; BP diastolic 57–81; PULSE 84–98; RESP 13–26; TEMP 36.8; O2SAT 78–98
--- NOTE | 2020-05-14 13:45 | RT.EKG_ITS ---
APPROVED REPORT Exam: Resting ECG Patient Location: E HR:93 bpm ECG Measurements Heart Rate 93 AXIS PA 177 P 78 QRSd 76 QRS 65 QT 319 T 71 QTc 398 Conclusion Sinus rhythm...normal P axis, V-rate 60- 99 Probable left atrial enlargement...P >50mS, <-0.10mV V1 no STEMI, non-diagnopstic EKG
[2020-05-14 14:12] LABS: Abs Immature Grans 0.09 10^3/uL (0.0-0.06); Absolute Basophil Count 0.04 10^3/uL (0.0-0.2); Absolute Eosinophil Count 0.13 10^3/uL (0.0-0.7); Absolute Lymphocyte Count 1.37 10^3/uL (1.2-3.4); Absolute Monocyte Count 1.41 10^3/uL (0.1-0.8); Absolute Neutrophil Count 8.73 10^3/uL (1.2-6.7); Basophils % 0.3; Eosinophils % 1.1; HCT 48.4 % (40.0-50.0); HGB 16.2 g/dL (13.5-17.5); Immature Grans % 0.8; Lymphocytes % 11.6; MCH 30.5 pg (27.0-33.0); MCHC 33.5 % (32.0-36.0); MCV 91.1 fL (80-95); MPV 10.2 fL (8.0-11.0); Neutrophils % 74.2; Nucleated RBC 0 %; Platelet Count 167 10^3/uL (130-400); RBC 5.31 10^6/uL (4.36-5.78); RDW 15.7 % (11.8-14.1); RDW-SD 52.8 fL; WBC 11.77 10^3/uL (4.4-10.8)
--- NOTE | 2020-05-14 14:15 | DI.CT_ITS ---
EXAM: CT CHEST PE CTA CLINICAL HISTORY: Chronic cough, chest pain. TECHNIQUE: Imaging Protocol: Axial CT angiography was performed with multi-slice acquisition and mu lti-planar and/or 3D reconstructions. CONTRAST MATERIAL: Intravenous: Omnipaque 350 Contrast volume:63 cc COMPARISON: CR CHEST 2 VIEWS PA,LAT from 06/07/[address] CHEST WO from 02/23/2020 FINDINGS: Pulmonary Arteries: No evidence of filling defect to suggest pulmonary emboli. Tracheobronchial tree: Patent where visualized. Mediastinum and Rosa Elena: No dominant adenopathy or fluid collection. Pulmonary parenchyma: Mild biapical scarring. Respiratory motion somewhat limits the exam. Mild bas ilar dependent changes. Previously noted infiltrates have cleared. Pleura: No effusion or pneumothorax. Heart: The heart is not dilated. Aortic valve prosthesis. Aorta: Thoracic aorta non-dilated. Upper abdomen: Small hiatal hernia. Bones: Left shoulder prosthesis. Degenerative changes in the spine. IMPRESSION: No evidence of pulmonary embolism or other acute abnormality.. RADIATION DOSE DELIVERED: Total DLP DATA REPOSITORY: All CT scans at this facility are submitted to the National Radiology Data Registry (NRDR) Dose Index Registry (DIR) with the [employer] (ACR). RADIATION OPTIMIZATION: All CT scans at this facility use at least one of these dose optimization te chniques: automated exposure control; mA and/or kV adjustment per patient size (includes targeted exa ms where dose is matched to clinical indication); or iterative reconstruction.
--- NOTE | 2020-05-14 14:15 | W.ED.GENAD ---
Discharge Plan Disposition Patient Disposition: HOME Condition: Improving Discharge Details Chief Complaint: Chest Pain Clinical Impression: Chest pain Primary Care Provider: Umesh Covarrubias ED Provider: Jojo Luna Home Meds and New Rx's Prescriptions: Continued gabapentin 300 mg capsule 300 mg PO QHS PRN (Reason: insomnia) Qty: 90 RF: 3 meclizine 25 mg tablet 25 mg PO TID PRN (Reason: dizziness) Qty: 30 RF: 0 lorazepam 1 mg tablet 1 mg PO QHS PRN (Reason: insomnia/back spasms) Qty: 30 RF: 0 rosuvastatin 20 mg tablet 20 mg PO DAILY Qty: 90 RF: 3 mupirocin 2 % ointment 1 applic TP TID Qty: 22 RF: 11 losartan 50 mg tablet 50 mg PO DAILY Qty: 90 RF: 3 Breo Ellipta 200-25 mcg/dose blister with device 1 inh IH DAILY RF: 0 (DME) mucus clearing device Device See Rx Instructions .ROUTE .MEDSUPPLY Qty: 1 RF: 0 aspirin [Aspir-81] 81 MG tablet,delayed release (DR/EC) 81 mg PO DAILY RF: 0 pantoprazole 40 MG tablet,delayed release (DR/EC) 1 tab PO DAILY RF: 0 vitamin B complex Capsule 1 cap PO DAILY RF: 0 Dairy Aid 3,000 unit Tablet,Chewable 3,000 unit PO DAILY RF: 0 coenzyme Q10 [Co Q-10] 100 mg Capsule 300 mg PO DAILY RF: 0 lycopene 10 mg Capsule 10 mg PO DAILY RF: 0 cholecalciferol (vitamin D3) [Vitamin D3] 2,000 unit Tablet 2,000 unit PO DAILY RF: 0 calcium citrate 760 mg calcium /3.5 gram Granules 760 mg PO DAILY RF: 0 Probiotic 3 billion cell Capsule 3,000 mmu cells PO DAILY RF: 0 Snowshoe 3-6-9 1,200 mg Capsule 1 cap PO DAILY RF: 0 Discharge Instructions Instructions: Chest Pain (ED) Additional Instructions: Continue usual meds as previously directed you can use nitroglycerin 0.4 mg sublingually every 5 minutes x 3 doses if needed for recurrent chest pain. If you require all 3 doses you need to call 911 to present back to the emergency department for further evaluation or return sooner for new symptoms or concerns. He will need an outpatient stress test as soon as possible Referrals: Myrter,Umesh, DO [Primary Care Provider] - (Call tomorrow morning for follow-up appointment with your primary care as soon as possible) Discharge Orders Other Ambulatory Orders: ETT Stress Test (Outpt) (ONCE) Location: None Selected Ordered By: Jojo Luna Discharge Data Discharge Date/Time-TO BE ENTERED AT DEPARTURE: 05/14/20 19:45 Medical Decision Making <Estefany Mark - Last Filed: 05/15/20 08:04> 79-year-old male presents to the ER with chief complaint of chest pain which began this morning upon waking. Patient states pain did not wake him out of his sleep he did awake and have the pain at present. He rates the pain 4 5 out of 10, associated with cough which has been chronic he does have a history of bronchiectasis. Other history includes aortic valve replacement, CKD, depressive disorder, diverticulitis, GERD, hypertension, hyper cholesterolemia, prostate cancer. He did have an echocardiogram done in February upon record review shows that ejection fraction was 50%. He did take a baby aspirin prior to arrival. Denies any nausea vomiting fever chills Informed by staff pharmacist patient received 1 sublingual nitro 0.4 mg which reduces pain down to 0 out of 10. CBC shows white blood cell count of 11.77, sodium 129, potassium 4.1, chloride 97, BUN 28 creatinine 1.59 GFR is 42 magnesium is 1.7, alk phos is 41. Sodium was 130 in February BUN was 19 in February and creatinine was 1.52 in February. Initial troponin is within normal limits less than 0.05. Second troponin is due 1700 today. And is pending at this time. BNP is 277 which is within normal limits. Care is to be handed off to oncoming provider Jojo Luna S[employer]IOR [employer] BILLING SPECIALIST pending CT chest and repeat troponin. Possible admission for observation for chest pain. <Jojo Luna SENIOR MEDICAL BILLING SPECIALIST - Last Filed: 05/14/20 22:55> Patient second troponin returns less than 0.05 and EKG shows no acute ST segment changes. He remains chest pain-free. Discussed observation admission with patient and and patient adamantly is requesting discharge to home as he is pain-free with normal EKG and no bump in his troponin currently chest pain-free I think it is reasonable to discharge him with close outpatient follow-up. I will refer him for an exercise stress test I did give him 3 SL nitro to use for recurrent pain at home and advised him to return to the emergency department immediately for any recurrent or concerning symptoms. Medical Records Medical records reviewed: Yes I reviewed the patient's medical records. Lab Data Lab results narrative: Laboratory Last Values WBC 11.77 10^3/uL (4.4-10.8) H 05/14/20 13:51 RBC 5.31 10^6/uL (4.36-5.78) 05/14/20 13:51 Hgb 16.2 g/dL (13.5-17.5) 05/14/20 13:51 Hct 48.4 % (40.0-50.0) 05/14/20 13:51 MCV 91.1 fL (80-95) 05/14/20 13:51 MCH 30.5 pg (27.0-33.0) 05/14/20 13:51 MCHC 33.5 % (32.0-36.0) 05/14/20 13:51 RDW 15.7 % (11.8-14.1) H 05/14/20 13:51 Plt Count 167 10^3/uL (130-400) 05/14/20 13:51 MPV 10.2 fL (8.0-11.0) 05/14/20 13:51 Immature Gran % 0.8 05/14/20 13:51 Neutrophils % 74.2 05/14/20 13:51 Lymphocytes % 11.6 05/14/20 13:51 Monocytes % 12.0 05/14/20 13:51 Eosinophils % 1.1 05/14/20 13:51 Basophils % 0.3 05/14/20 13:51 Nucleated RBC % 0 % 05/14/20 13:51 Absolute Neutrophils 8.73 10^3/uL (1.2-6.7) H 05/14/20 13:51 Absolute Lymphocytes 1.37 10^3/uL (1.2-3.4) 05/14/20 13:51 Absolute Monocytes 1.41 10^3/uL (0.1-0.8) H 05/14/20 13:51 Absolute Eosinophils 0.13 10^3/uL (0.0-0.7) 05/14/20 13:51 Absolute Basophils 0.04 10^3/uL (0.0-0.2) 05/14/20 13:51 Sodium 129 mmol/L (136-145) L 05/14/20 13:51 Potassium 4.1 mmol/L (3.5-5.1) 05/14/20 13:51 Chloride 97 mmol/L (98-107) L 05/14/20 13:51 Carbon Dioxide 25.3 mmol/L (21.0-32.0) 05/14/20 13:51 Anion Gap 6.7 mmol/L (3-11) 05/14/20 13:51 BUN 20 mg/dL (7-18) H 05/14/20 13:51 Creatinine 1.59 mg/dL (0.70-1.30) H 05/14/20 13:51 Estimated GFR/1.73 m2 42.00 (mL/min/1.73m2) 05/14/20 13:51 Glucose 107 mg/dL (74-106) H 05/14/20 13:51 Calcium 9.4 mg/dL (8.5-10.1) 05/14/20 13:51 Magnesium 1.7 mg/dL (1.8-2.4) L 05/14/20 13:51 Total Bilirubin 0.8 mg/dL (0.2-1.0) 05/14/20 13:51 AST 22 U/L (15-37) 05/14/20 13:51 ALT 31 U/L (16-63) 05/14/20 13:51 Alkaline Phosphatase 41 U/L (46-116) L 05/14/20 13:51 Troponin I < 0.05 ng/mL (<0.06) 05/14/20 17:12 NT-Pro-B Natriuret Pep 277 pg/mL (<300) 05/14/20 13:51 Total Protein 6.7 g/dL (6.4-8.2) 05/14/20 13:51 Albumin 3.5 g/dL (3.4-5.0) 05/14/20 13:51 HPI <Estefany Mark - Last Filed: 05/15/20 08:04> General Mode of arrival: ambulatory. Date/Time Provider Initiated Documentation: 05/14/20 13:51. Limitations to Documentation: no limitations. Information obtained by: patient and family (). HPI Narrative: 79-year-old male presents to the ER with chief complaint of chest pain which began this morning upon waking. Patient states pain did not wake him out of his sleep he did awake and have the pain at present. He rates the pain 4 5 out of 10, associated with cough which has been chronic he does have a history of bronchiectasis. Other history includes aortic valve replacement, CKD, depressive disorder, diverticulitis, GERD, hypertension, hyper cholesterolemia, prostate cancer. He did have an echocardiogram done in February upon record review shows that ejection fraction was 50%. He did take a baby aspirin prior to arrival. Denies any nausea vomiting fever chills. Related Data Home Medications Medication Instructions Recorded Confirmed aspirin [Aspir-81] 81 mg PO DAILY 05/27/14 05/14/20 pantoprazole 1 tab PO DAILY 06/24/15 05/14/20 Dairy Aid 3,000 unit PO DAILY 09/03/19 05/14/20 Snowshoe 3-6-9 1 cap PO DAILY 09/03/19 05/14/20 Probiotic 3,000 mmu cells PO DAILY 09/03/19 05/14/20 calcium citrate 760 mg PO DAILY 09/03/19 05/14/20 cholecalciferol (vitamin D3) 2,000 unit PO DAILY 09/03/19 05/14/20 [Vitamin D3] coenzyme Q10 [Co Q-10] 300 mg PO DAILY 09/03/19 05/14/20 lycopene 10 mg PO DAILY 09/03/19 05/14/20 vitamin B complex 1 cap PO DAILY 09/03/19 05/14/20 gabapentin 300 mg capsule 300 mg PO QHS PRN #90 cap 01/17/20 05/14/20 meclizine 25 mg tablet 25 mg PO TID PRN #30 tab 01/31/20 05/14/20 losartan 50 mg tablet 50 mg PO DAILY #90 tab 02/28/20 05/14/20 fluticasone furoate 200 1 inh IH DAILY 03/05/20 05/14/20 mcg-vilanterol 25 mcg/dose inhalation powder mucus clearing device #1 each 03/05/20 04/26/20 mupirocin 2 % topical ointment 1 applic TP TID #22 gm 03/12/20 05/14/20 rosuvastatin 20 mg tablet 20 mg PO DAILY #90 tab 03/12/20 05/14/20 lorazepam 1 mg tablet 1 mg PO QHS PRN #30 tab 04/26/20 05/14/20 Previous Rx's Medication Instructions Recorded gabapentin 300 mg capsule 300 mg PO QHS PRN #90 cap 01/17/20 meclizine 25 mg tablet 25 mg PO TID PRN #30 tab 01/31/20 losartan 50 mg tablet 50 mg PO DAILY #90 tab 02/28/20 mupirocin 2 % topical ointment 1 applic TP TID #22 gm 03/12/20 rosuvastatin 20 mg tablet 20 mg PO DAILY #90 tab 03/12/20 lorazepam 1 mg tablet 1 mg PO QHS PRN #30 tab 04/26/20 Allergies Allergy/AdvReac Type Severity Reaction Status Date / Time sulfamethoxazole Allergy turns red Verified 05/14/20 13:56 [From Bactrim] trimethoprim [From Bactrim] Allergy turns red Verified 05/14/20 13:56 amoxicillin [Amoxicillin] AdvReac Mild Skin Rash Verified 05/14/20 13:56 Penicillins AdvReac Unknown as a kid Verified 05/14/20 13:56 General Stated Complaint: Chest Pain ANIBAL: 2 Review of Systems <Estefany Mark - Last Filed: 05/15/20 08:04> Narrative: Constitutional: Negative for weight loss, alert and oriented, well groomed, normal body habitus, appears comfortable. HEENT: Denies trauma, headaches, blurry vision, nasal discharge, sore throat, trouble swallowing. Chest: Denies palpitations, irregular rhythm, hypertension. Positive chest pain. Does have a vertical midsternal healed surgical scar from aortic valve replacement 2012. Respiratory: Denies Shortness of breath, hemoptysis. Positive cough. GI: Denies abdominal pain, nausea, vomiting, diarrhea, constipation. : Denies dysuria, hematuria, flank pain, rectal bleeding. Neuro: Denies dizziness, blurry vision, weakness, syncope, headache or facial numbness. Hematologic: Denies easy bruising, intolerance to heat or cold, hair loss. PFSH <Estefany Mark - Last Filed: 05/15/20 08:04> Medical History Aortic valve disorder (Acute) Cerebrovascular disease (Acute) CKD (chronic kidney disease) (Acute) Depressive disorder (Acute) Diverticular disease of colon (Acute) Diverticulitis (Chronic) Dizziness and giddiness (Acute) GERD (gastroesophageal reflux disease) (Chronic) Headache (Acute) Hip osteoarthritis (Acute) History of pyloric stenosis as a child (Acute) HTN (hypertension) (Chronic) Hypercholesterolemia (Acute) Hyponatremia (Acute) Iron deficiency anemia (Acute) Malaise and fatigue (Acute) Peripheral vascular disease (Chronic) Prostate cancer (Chronic) White coat syndrome with hypertension (Chronic) Tests in the 120s at home Surgical History H/O aortic valve replacement (Acute) H/O hemorrhoidectomy (Chronic) H/O shoulder surgery (Chronic) History of colon resection (Chronic) History of hernia repair (Chronic) History of tonsillectomy (Chronic) Family History Father Substance abuse Mother Breast cancer Heart disease Sister Cancer Heart disease Hypertension Social History Smoking/Tobacco Use Status: Former Tobacco Use Quit Date: 09/07/1964 Tobacco: How many years used: 14 Alcohol Intake: current Alcohol Intake frequency: a few times a month Drug use: Never Substance use type: does not use Adopted: No Caregiver/Support person: No Foster care: No Household members: spouse Housing: house Do you need help understanding health information?: Never 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 Appears stated age. Normal body habitus. Head: Normocephalic, no trauma. Eyes: Pupils PERRLA, Red reflex noted, EOM's intact. Eyelids symmetrical without lesions, discharge, or swelling. ENT: Bilateral TM's WNL, External ear normal to inspection, no mastoid TTP, swelling, or erythema, Nasal turbinates WNL, no nasal discharge. Normal dentition, Posterior pharynx WNL, no exudate. Chest: RRR, Normal S1, S2, distal pulses intact. Has a vertical midsternal healed incision from aortic valve replacement 2012. Resp: Lungs clear to auscultation left lobes no wheezes, rales, or rhonchi. Diminished right side. Musculoskeletal: Normal gait, 5/5 strength to all four extremities. Skin: No suspicious rashes or lesions. Capillary refill less than 2 sec. Neurologic: Cranial nerves II-XII intact. Alert and oriented x 3. DTR's intact. Hematologic/Lymphatic: No ecchymosis, no lymphadenopathy. Course <Estefany Huertaton - Last Filed: 05/15/20 08:04> Vital Signs Vital signs: Vital Signs Temperature 36.8 C 05/14/20 13:48 Pulse 92 H 05/14/20 13:48 Respiratory Rate 21 05/14/20 13:48 Blood Pressure 134/81 05/14/20 13:48 Pulse Oximetry 95 05/14/20 13:48 Temperature 36.8 C 05/14/20 13:48 Temperature Source Skin 05/14/20 13:48 Pulse 92 H 05/14/20 13:48 Respiratory Rate 21 05/14/20 14:04 Respiratory Effort Non-Labored 05/14/20 14:04 Respiratory Depth Normal 05/14/20 14:04 Respiratory Pattern Normal 05/14/20 14:04 Blood Pressure 134/81 05/14/20 13:48 Pulse Oximetry 95 05/14/20 13:48 Oxygen Delivery Method Room Air 05/14/20 13:48 Oxygen Flow Rate 0 05/14/20 13:48 Pain Level 6 05/14/20 13:48 Lab/Test Results Lab/Test Results: Laboratory Tests Range/Units 05/14/20 13:51 WBC (4.4-10.8) 10^3/uL 11.77 H RBC (4.36-5.78) 10^6/uL 5.31 Hgb (13.5-17.5) g/dL 16.2 Hct (40.0-50.0) % 48.4 MCV (80-95) fL 91.1 MCH (27.0-33.0) pg 30.5 MCHC (32.0-36.0) % 33.5 RDW (11.8-14.1) % 15.7 H Plt Count (130-400) 10^3/uL 167 MPV (8.0-11.0) fL 10.2 Immature Gran % 0.8 Neutrophils % 74.2 Lymphocytes % 11.6 Monocytes % 12.0 Eosinophils % 1.1 Basophils % 0.3 Nucleated RBC % % 0 Absolute Neutrophils (1.2-6.7) 10^3/uL 8.73 H Absolute Lymphocytes (1.2-3.4) 10^3/uL 1.37 Absolute Monocytes (0.1-0.8) 10^3/uL 1.41 H Absolute Eosinophils (0.0-0.7) 10^3/uL 0.13 Absolute Basophils (0.0-0.2) 10^3/uL 0.04 Sign Out <Estefany Mark - Last Filed: 05/15/20 08:04> Sign Out Data: Sign Out Comment: Pending repeat troponin, CT result, and disposition Last updated by Estefany Mark at 05/14/20 15:42
[2020-05-14 14:33] LABS: ALT 31 U/L (16-63); AST 22 U/L (15-37); Albumin 3.5 g/dL (3.4-5.0); Alkaline Phosphatase 41 U/L (46-116); Anion Gap 6.7 mmol/L (3-11); BUN 20 mg/dL (7-18); Bilirubin, Total 0.8 mg/dL (0.2-1.0); CO2 25.3 mmol/L (21.0-32.0); CREATININE 1.59 mg/dL (0.70-1.30); Calcium 9.4 mg/dL (8.5-10.1); Chloride 97 mmol/L (98-107); Glucose 107 mg/dL (74-106); Magnesium 1.7 mg/dL (1.8-2.4); Potassium 4.1 mmol/L (3.5-5.1); Sodium 129 mmol/L (136-145); Total Protein 6.7 g/dL (6.4-8.2); Troponin I < 0.05 ng/mL (<0.06)
[2020-05-14] MEDS: nitroGLYcerin 0.4 MG TAB SL ×2 (14:39→18:47)
[2020-05-14] MEDS: Normal Saline 1,000 ML 125 ML IV (14:40)
[2020-05-14 14:43] LABS: NT-proBNP 277 pg/mL (<300)
[2020-05-14] MEDS: Omnipaque 350 MG/ML 100 ML BTL IJ (15:36)
[2020-05-14] MEDS: Normal Saline - Diluent 50 ML VIAL IV (15:37)
--- NOTE | 2020-05-14 16:07 | DI.VRAD_ITS ---
PROCEDURE INFORMATION: Exam: CT Angiography Chest With Contrast Exam date and time: 05/14/2020 3:18 PM Age: 79 years old Clinical indication: Chest pain TECHNIQUE: Imaging protocol: Computed tomographic angiography of the chest with intravenous contrast. 3D rendering (Not supervised by radiologist): MIP and/or 3D reconstructed images were created by the technologist. COMPARISON: CT CHEST WO 02/23/2020 12:37 PM FINDINGS: Pulmonary arteries: No evidence of pulmonary embolism. Aorta: A normal thoracic aorta. Lungs: Patchy areas of ground-glass opacities in both lung bases. These were not present previously No areas of consolidations. No emphysematous changes. Pleural space: Unremarkable. No pneumothorax. No pleural effusion. Heart: Unremarkable. No cardiomegaly. No pericardial effusion. Lymph nodes: No mediastinal, hilar, axillary or supraclavicular adenopathy. . Bones/joints: Degenerative changes of the thoracic spine. . Soft tissues: Unremarkable. Other findings: No masses. IMPRESSION: 1. No evidence of any pulmonary embolism. 2. A normal thoracic aorta. 3. Interval development of patchy areas of ground-glass opacities in the lung bases. May represent early viral pneumonitis Dictated and Authenticated by: Trevor Bird MD. Ordering:HENNY Allison MD
--- NOTE | 2020-05-14 17:00 | RT.EKG_ITS ---
APPROVED REPORT Exam: Resting ECG Patient Location: E HR:91 bpm ECG Measurements Heart Rate 91 AXIS VT 186 P 68 QRSd 72 QRS 42 QT 318 T 60 QTc 391 Conclusion Sinus rhythm...normal P axis, V-rate 60- 99
[2020-05-14 17:37] LABS: Troponin I < 0.05 ng/mL (<0.06)
[2020-05-14] MEDS: Magnesium Oxide 400 MG TAB PO (17:49)
== END 2020-05-14 19:45 | disposition home or self-care (01) ==
PROVIDERS: Registered Nurse Emergency; Emergency Provider Nurse Practitioner Acute Care; PCP Family Medicine
DX: R07.89 Other chest pain (principal); R79.89 Other specified abnormal findings of blood chemistry; R06.89 Other abnormalities of breathing; I12.9 Hypertensive chronic kidney disease with stage 1 through stage 4 chronic kidney disease, or unspecified chronic kidney disease; N18.9 Chronic kidney disease, unspecified; Z95.4 Presence of other heart-valve replacement
CPT/HCPCS: 71275; 80053; 93005; 99285; 83735; 83880; 84484; 85025; 93010; 99284; J3490

== ENCOUNTER 2020-05-18 13:02 | Outpatient (CLI) | payer MEDICARE, BC, SELFPAY ==
[2020-05-21 21:52] LABS: Patient Race White; SARS-CoV-2 RNA Undetected (Undetected); SARS-CoV-2 Specimen Source Nasopharynx
== END 2020-05-18 13:22 ==
PROVIDERS: PCP Family Medicine; Visit Provider Internal Medicine
DX: R05 Cough (principal)
CPT/HCPCS: U0003

== ENCOUNTER 2020-06-04 14:37 | Outpatient (REF) | payer MEDICARE, BC, SELFPAY | END 2020-06-04 14:57 | LOC: LBN 14:37 | PROVIDERS: PCP Family Medicine; Visit Provider Internal Medicine | DX: R05 Cough (principal) | CPT/HCPCS: 87070; 87205 ==

== ENCOUNTER 2020-06-22 13:13 | Outpatient (CLI) | payer MEDICARE, BC, SELFPAY ==
[2020-06-23 17:55] LABS: COVID-19 RT-PCR Result NEGATIVE (Negative)
== END 2020-06-22 13:33 ==
PROVIDERS: Otolaryngology; PCP Family Medicine; Visit Provider Family Medicine
DX: Z11.59 Encounter for screening for other viral diseases (principal); Z01.818 Encounter for other preprocedural examination
CPT/HCPCS: U0003

== ENCOUNTER 2020-08-13 12:59 | Outpatient (CLI) | payer MEDICARE, BC, SELFPAY ==
[2020-08-15 09:43] LABS: COVID-19 RT-PCR Result NEGATIVE (Negative)
== END 2020-08-13 13:19 ==
PROVIDERS: PCP Family Medicine; Visit Provider Family Medicine
DX: Z20.828 Contact with and (suspected) exposure to other viral communicable diseases (principal)
CPT/HCPCS: U0003

== ENCOUNTER 2020-10-16 01:21 | Outpatient (CLI) | payer MEDICARE, OTHER, SELFPAY ==
--- NOTE | 2020-10-16 08:45 | DI.MRI_ITS ---
EXAM: MR BRAIN WO CLINICAL HISTORY: Headache with dizziness, previous strokes,R51.9 TECHNIQUE: Multiplanar multisequence MRI of the brain was performed. COMPARISON: CT HEAD WITHOUT STROKE PROTOCOL from 05/02/2017 MR MRI - BRAIN WO CONTRAST from 05/08/2017 MR MRI - BRAIN WO CONTRAST from 05/08/2017 FINDINGS: VENTRICLES AND EXTRA AXIAL SPACES: Normal in size and morphology for the patient's age. MIDLINE SHIFT: None. CEREBRAL PARENCHYMA: No focus of restricted diffusion to suggest acute infarct. There are areas of h yperintense signal in the white matter on the T2 and FLAIR images consistent with chronic microvascul ar ischemic disease. No space-occupying lesion identified. HEMORRHAGE: None. BRAINSTEM/CEREBELLUM: Normal. CALVARIUM: Normal. VISUALIZED PARANASAL SINUSES/MASTOIDS:There is mild mucosal thickening in all the visualized paranasa l sinuses. [place] OF DUR[place]: Normal flow void. PITUITARY GLAND: Unremarkable. OTHER FINDINGS: None. IMPRESSION: Age-related cerebral atrophy and findings of chronic microvascular ischemic disease. No evidence of an acute infarct. Mild chronic paranasal sinusitis. DATA REPOSITORY:
== END 2020-10-16 01:22 ==
LOC: DI 01:21
PROVIDERS: PCP Family Medicine; Visit Provider Family Medicine
DX: R42 Dizziness and giddiness (principal); R51.9 Headache, unspecified; G31.1 Senile degeneration of brain, not elsewhere classified; Z86.73 Personal history of transient ischemic attack (TIA), and cerebral infarction without residual deficits; J32.8 Other chronic sinusitis
CPT/HCPCS: 70551

== ENCOUNTER 2020-10-16 02:38 | Outpatient (CLI) | payer MEDICARE, OTHER, SELFPAY ==
[2020-10-19 15:04] LABS: Testosterone, Free 14.5 ng/dL (2.88-10.5); Testosterone, Total 691 ng/dL (240-950)
== END 2020-10-16 02:39 | disposition home or self-care (01) ==
LOC: LBO 02:38
PROVIDERS: PCP Family Medicine; Visit Provider Family Medicine
DX: R53.83 Other fatigue (principal)
CPT/HCPCS: 36415; 84402; 84403; 70551

== ENCOUNTER 2020-12-11 14:19 | Emergency (ER) | payer MEDICARE, OTHER, SELFPAY ==
[2020-12-11] VITALS (19 sets, daily range): BP systolic 130–172; BP diastolic 69–145; PULSE 77–99; RESP 4–25; TEMP 36.6; O2SAT 94–99
--- NOTE | 2020-12-11 14:15 | RT.EKG_ITS ---
APPROVED REPORT Exam: Resting ECG Patient Location: E HR:87 bpm ECG Measurements Heart Rate 87 AXIS AR 190 P 83 QRSd 76 QRS 64 QT 337 T 62 QTc 406 Conclusion Sinus rhythm Left atrial enlargement..
--- NOTE | 2020-12-11 14:45 | RT.EKG_ITS ---
APPROVED REPORT Exam: Resting ECG Patient Location: E HR:99 bpm ECG Measurements Heart Rate 99 AXIS NJ 195 P 78 QRSd 80 QRS 46 QT 335 T 68 QTc 430 Conclusion Sinus rhythm...normal P axis, V-rate 60- 99 Probable left atrial enlargement...P >50mS, <-0.10mV V1 Physician: No stemi
[2020-12-11 15:06] LABS: Abs Immature Grans 0.07 10^3/uL (0.0-0.06); Absolute Eosinophil Count 0.11 10^3/uL (0.0-0.7); Basophils % 0.2; Eosinophils % 0.9; HCT 50.5 % (40.0-50.0); HGB 16.5 g/dL (13.5-17.5); Immature Grans % 0.6; Lymphocytes % 12.4; MCH 29.7 pg (27.0-33.0); MCHC 32.7 % (32.0-36.0); MPV 10.1 fL (8.0-11.0); Neutrophils % 76.9; Nucleated RBC 0 %; Platelet Count 170 10^3/uL (130-400); RBC 5.55 10^6/uL (4.36-5.78); RDW 14.8 % (11.8-14.1); RDW-SD 49.8 fL; WBC 12.21 10^3/uL (4.4-10.8)
[2020-12-11 15:14] LABS: Absolute Basophil Count 0.02 10^3/uL (0.0-0.2); Absolute Lymphocyte Count 1.51 10^3/uL (1.2-3.4); Absolute Neutrophil Count 9.39 10^3/uL (1.2-6.7)
--- NOTE | 2020-12-11 15:16 | ED.GENADUL_ITS ---
Discharge Plan Disposition Patient Disposition: HOME Condition: Fair Discharge Details Clinical Impression: Acute dyspnea Primary Care Provider: Umesh Covarrubias ED Provider: Estefany Mark Home Meds and New Rx's Prescriptions: New prednisone 20 mg tablet 40 mg PO DAILY 5 Days Qty: 10 RF: 0 No Action meclizine 25 mg tablet 25 mg PO TID PRN (Reason: dizziness) Qty: 30 RF: 0 astragalus root 470 mg capsule PO RF: 0 lorazepam 1 mg tablet 1 mg PO QHS PRN (Reason: insomnia/back spasms) Qty: 15 RF: 0 mupirocin 2 % ointment 1 applic TP TID Qty: 22 RF: 11 Breo Ellipta 200-25 mcg/dose blister with device 1 inh IH DAILY RF: 0 Hold Instructions: Changed by Provider (DME) mucus clearing device Device See Rx Instructions .ROUTE .MEDSUPPLY Qty: 1 RF: 0 Bevespi Aerosphere 9-4.8 mcg HFA aerosol inhaler 2 puff inhalation BID RF: 0 sildenafil 50 mg tablet 50 mg PO DAILY PRN (Reason: sexual activity) Qty: 20 RF: 3 albuterol sulfate 90 mcg/actuation HFA aerosol inhaler 2 puff inhalation Q6H PRN (Reason: cough) Qty: 18 RF: 8 Dupixent Syringe 300 mg/2 mL syringe 300 mg subcut Q2W RF: 0 pantoprazole 40 mg tablet,delayed release (DR/EC) 40 mg PO DAILY Qty: 90 RF: 3 rosuvastatin 20 mg tablet 20 mg PO DAILY Qty: 90 RF: 3 losartan 50 mg tablet 50 mg PO DAILY Qty: 90 RF: 3 aspirin [Aspir-81] 81 MG tablet,delayed release (DR/EC) 81 mg PO DAILY RF: 0 vitamin B complex Capsule 1 cap PO DAILY RF: 0 Dairy Aid 3,000 unit Tablet,Chewable 3,000 unit PO DAILY RF: 0 coenzyme Q10 [Co Q-10] 100 mg Capsule 300 mg PO DAILY RF: 0 lycopene 10 mg Capsule 10 mg PO DAILY RF: 0 cholecalciferol (vitamin D3) [Vitamin D3] 2,000 unit Tablet 2,000 unit PO DAILY RF: 0 calcium citrate 760 mg calcium /3.5 gram Granules 760 mg PO DAILY RF: 0 Probiotic 3 billion cell Capsule 3,000 mmu cells PO DAILY RF: 0 [place] 3-6-9 1,200 mg Capsule 1 cap PO DAILY RF: 0 Discharge Instructions Instructions: Dyspnea (ED) Additional Instructions: You are leaving against our recommendation, I recommend you start taking the prednisone tomorrow to see if that helps your symptoms and follow-up with your doctor early stability, please return immediately to the emergency room should you have persisting or worsening complaints If your second troponin comes back elevated we will call you to return. Otherwise follow-up with your PCP. Referrals: Umesh Covarrubias DO [Primary Care Provider] - Discharge Data Discharge Date/Time-TO BE ENTERED AT DEPARTURE: 12/11/20 17:55 Medical Decision Making <DAVID Barrios - Last Filed: 12/12/20 09:37> Patient is alert, speaking in complete sentences, mild wheezing He is treated for for COPD by pulmonology although patient has not been formally diagnosed with the her patient He states that he presents today as he woke up with chest tightness which is new for him Triage notes that when he was walking back he was quite dyspneic I have ordered a neb for here His chest x-ray does not show acute pathology, his BNP is negative, his troponin is negative He is receiving CTA of his chest to exclude pulmonary embolism There is no evidence of infectious etiology of patient's symptoms He will be signed out to Estefany Mark at 1600 Patient leaving AGAINST MEDICAL ADVICE, agreeable to stay for repeat troponin and EKG Patient alert, oriented, of decisional capacity Differential Diagnosis Differential Diagnosis: COPD, asthma, angina, pulmonary embolism Medical Records Medical records reviewed: Yes I reviewed the patient's medical records. Lab Data Lab results reviewed: Yes I reviewed the patient's lab results. <Estefany Mark - Last Filed: 12/12/20 00:30> Care assumed from provider (DAVID Barrios) Discussed patient details and case and pending workup and disposition. Patient is hemodynamically stable, and alert and oriented. Upon patient reevaluation repeat EKG and second troponin is pending at this time. Patient is requesting to leave prior to receiving the troponin results. Discussed the risks of this he verbalizes understanding he is alert and oriented and has a past to make his own decisions. I did discuss that if it came back positive he may be called back into the ER and have the process restarted he verbalizes understanding. HPI <DAVID Barrios - Last Filed: 12/12/20 09:37> This 80-year-old male with past medical history of bovine aortic valve, hypertension, hyperlipidemia, respiratory disease, presents with report of chest tightness. Patient states he had a cough for the past 2 years. He denies any fever or chills. He denies any exposure to sick contacts. He denies any new cough. He denies any new weight gain or peripheral edema. States he uses inhaler today which mildly improved his symptoms. He did feel like his chest tightness worsened upon entering the emergency room. He denies history of coronary artery disease. Patient denies pleuritic pain. General Date/Time Provider Initiated Documentation: 12/11/20 14:19 . Related Data Home Medications Medication Instructions Recorded Confirmed aspirin [Aspir-81] 81 mg PO DAILY 05/27/14 09/17/20 Dairy Aid 3,000 unit PO DAILY 09/03/19 09/17/20 [place] 3-6-9 1 cap PO DAILY 09/03/19 09/17/20 Probiotic 3,000 mmu cells PO DAILY 09/03/19 09/17/20 calcium citrate 760 mg PO DAILY 09/03/19 09/17/20 cholecalciferol (vitamin D3) 2,000 unit PO DAILY 09/03/19 09/17/20 [Vitamin D3] coenzyme Q10 [Co Q-10] 300 mg PO DAILY 09/03/19 09/17/20 lycopene 10 mg PO DAILY 09/03/19 09/17/20 vitamin B complex 1 cap PO DAILY 09/03/19 09/17/20 meclizine 25 mg tablet 25 mg PO TID PRN #30 tab 01/31/20 09/17/20 fluticasone furoate 200 1 inh IH DAILY 03/05/20 06/04/20 mcg-vilanterol 25 mcg/dose inhalation powder mucus clearing device #1 each 03/05/20 06/04/20 mupirocin 2 % topical ointment 1 applic TP TID #22 gm 03/12/20 06/04/20 glycopyrrolate 9 mcg-formoterol 2 puff INHALATION BID 06/01/20 09/17/20 4.8 mcg HFA aerosol inhaler sildenafil 50 mg tablet 50 mg PO DAILY PRN #20 tab 06/05/20 astragalus root 470 mg capsule mg PO 09/17/20 09/17/20 lorazepam 1 mg tablet 1 mg PO QHS PRN #15 tab 09/17/20 09/17/20 albuterol sulfate 90 mcg/actuation 2 puff INHALATION Q6H PRN #18 g 10/16/20 aerosol inhaler dupilumab 300 mg/2 mL subcutaneous 300 mg SUBCUT Q2W 11/09/20 syringe pantoprazole 40 mg tablet,delayed 40 mg PO DAILY #90 tab 11/12/20 release losartan 50 mg tablet 50 mg PO DAILY #90 tab 12/10/20 rosuvastatin 20 mg tablet 20 mg PO DAILY #90 tab 12/10/20 prednisone 40 mg PO DAILY 5 Days #10 tab 12/11/20 Previous Rx's Medication Instructions Recorded meclizine 25 mg tablet 25 mg PO TID PRN #30 tab 01/31/20 mupirocin 2 % topical ointment 1 applic TP TID #22 gm 03/12/20 sildenafil 50 mg tablet 50 mg PO DAILY PRN #20 tab 06/05/20 lorazepam 1 mg tablet 1 mg PO QHS PRN #15 tab 09/17/20 albuterol sulfate 90 mcg/actuation 2 puff INHALATION Q6H PRN #18 g 10/16/20 aerosol inhaler pantoprazole 40 mg tablet,delayed 40 mg PO DAILY #90 tab 11/12/20 release losartan 50 mg tablet 50 mg PO DAILY #90 tab 12/10/20 rosuvastatin 20 mg tablet 20 mg PO DAILY #90 tab 12/10/20 prednisone 40 mg PO DAILY 5 Days #10 tab 12/11/20 Allergies Allergy/AdvReac Type Severity Reaction Status Date / Time sulfamethoxazole Allergy turns red Verified 12/11/20 14:30 [From Bactrim] trimethoprim [From Bactrim] Allergy turns red Verified 12/11/20 14:30 amoxicillin [Amoxicillin] AdvReac Mild Skin Rash Verified 12/11/20 14:30 Penicillins AdvReac Unknown as a kid Verified 12/11/20 14:30 General Stated Complaint: Chest Pain ANIBAL: 2 <Estefany Mark - Last Filed: 12/12/20 00:30> This 80-year-old male with past medical history of bovine aortic valve, hypertension, hyperlipidemia, respiratory disease, presents with report of chest tightness. Patient states he had a cough for the past 2 years. He denies any fever or chills. He denies any exposure to sick contacts. He denies any new cough. He denies any new weight gain or peripheral edema. States he uses inhaler today which mildly improved his symptoms. He did feel like his chest tightness worsened upon entering the emergency room. He denies history of coronary artery disease. Patient denies pleuritic pain. Review of Systems <DAVID Barrios - Last Filed: 12/12/20 09:37> Narrative: Review of systems obtained x7 aside from where indicated in HPI PFSH <DAVID Barrios - Last Filed: 12/12/20 09:37> Medical History (Updated 12/11/20 @ 16:37 by DAVID Barrios) Aortic valve disorder Cerebrovascular disease CKD (chronic kidney disease) Depressive disorder Diverticular disease of colon Diverticulitis Dizziness and giddiness GERD (gastroesophageal reflux disease) Headache Hip osteoarthritis History of pyloric stenosis as a child HTN (hypertension) Hypercholesterolemia Hyponatremia Iron deficiency anemia Malaise and fatigue Obstructive sleep apnea Peripheral vascular disease Prostate cancer White coat syndrome with hypertension Tests in the 120s at home Surgical History (Updated 12/04/20 @ 14:55 by Judy Candelaria RN) H/O aortic valve replacement H/O hemorrhoidectomy H/O shoulder surgery History of colon resection History of hernia repair History of tonsillectomy Family History Father Substance abuse Mother Breast cancer Heart disease Sister Cancer Heart disease Hypertension Social History Smoking/Tobacco Use Status: Former Tobacco Use Quit Date: 09/07/1964 Tobacco: How many years used: 14 Smoking risk assessment performed?: Yes Alcohol Intake: former Drug use: Never Substance use type: does not use Adopted: No Caregiver/Support person: No Foster care: No Household members: spouse Housing: house Number of Children: 1 Do you need help understanding health information?: Never 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 Sexually active: Yes Do you think of yourself as: straight/heterosexual Current gender identity: male What is your relationship status?: Panel score (0-1 are the most socially isolated patients): 1 Seatbelt use: always Drive intox or ride w/intox spotter driver: No Working smoke detector in home: Yes Carbon monox detector in home: Yes Do you feel safe at home: Yes Do you feel safe in your relationship?: Yes Exam <DAVID Barrios - Last Filed: 12/12/20 09:37> Const General: cooperative Orientation: alert and oriented x3 HENMT Mouth: oral mucosae normal Other: Uvula midline, moist mucous membranes Chest Chest: normal inspection of the chest Resp Effort & Inspection: normal respiratory effort Other: Mild inspiratory wheezes Cardio Rate: regular rate Rhythm: regular rhythm Other: No murmurs GI Inspection: normal to inspection Skin General skin exam: no rashes or lesions noted Neuro General: patient alert and patient oriented x3 Extrem Other: No peripheral edema or calf tenderness Course <DAVID Barrios - Last Filed: 12/12/20 09:37> Vital Signs Vital signs: Vital Signs Temperature 36.6 C 12/11/20 14:22 Pulse 90 12/11/20 14:22 Respiratory Rate 22 12/11/20 14:22 Blood Pressure 172/93 H 12/11/20 14:22 Pulse Oximetry 97 12/11/20 14:22 Temperature 36.6 C 12/11/20 14:22 Temperature Source Skin 12/11/20 14:22 Pulse 90 12/11/20 14:54 Pulse 88 12/11/20 15:00 Respiratory Rate 13 12/11/20 15:00 Respiratory Effort 12/11/20 14:30 Blood Pressure 152/92 H 12/11/20 14:54 Blood Pressure Mean 101 12/11/20 14:54 Blood Pressure Position Sitting 12/11/20 14:22 Pulse Oximetry 98 12/11/20 15:00 Oxygen Delivery Method Room Air 12/11/20 14:22 Oxygen Flow Rate 0 12/11/20 14:22 Pain Level 4 12/11/20 14:22 Lab/Test Results Lab/Test Results: Laboratory Tests Range/Units 12/11/20 14:49 WBC (4.4-10.8) 10^3/uL 12.21 H RBC (4.36-5.78) 10^6/uL 5.55 Hgb (13.5-17.5) g/dL 16.5 Hct (40.0-50.0) % 50.5 H MCV (80-95) fL 91.0 MCH (27.0-33.0) pg 29.7 MCHC (32.0-36.0) % 32.7 RDW (11.8-14.1) % 14.8 H Plt Count (130-400) 10^3/uL 170 MPV (8.0-11.0) fL 10.1 Immature Gran % 0.6 Neutrophils % 76.9 Lymphocytes % 12.4 Monocytes % 9.0 Eosinophils % 0.9 Basophils % 0.2 Nucleated RBC % % 0 Absolute Neutrophils (1.2-6.7) 10^3/uL 9.39 H Absolute Lymphocytes (1.2-3.4) 10^3/uL 1.51 Absolute Monocytes (0.1-0.8) 10^3/uL 1.10 H Absolute Eosinophils (0.0-0.7) 10^3/uL 0.11 Absolute Basophils (0.0-0.2) 10^3/uL 0.02 Sign Out <DAVID Barrios - Last Filed: 12/12/20 09:37> Sign Out Data: Sign Out Comment: pending cta results, steroids, ambulatory trial, possible admission for chest tightness with persistent symptoms after neb Last updated by Marley Conti PA at 12/11/20 16:18
[2020-12-11 15:26] LABS: ALT 35 U/L (16-63); AST 23 U/L (15-37); Albumin 4.2 g/dL (3.4-5.0); Alkaline Phosphatase 54 U/L (46-116); Anion Gap 9.2 mmol/L (3-11); BUN 18 mg/dL (7-18); Bilirubin, Total 0.9 mg/dL (0.2-1.0); CO2 25.8 mmol/L (21.0-32.0); CREATININE 1.5 mg/dL (0.70-1.30); Calcium 9.9 mg/dL (8.5-10.1); Chloride 97 mmol/L (98-107); Estimated GFR 44.81 (mL/min/1.73m2); Glucose 83 mg/dL (74-106); Magnesium 1.9 mg/dL (1.8-2.4); NT-proBNP 223 pg/mL (<300); Potassium 4.3 mmol/L (3.5-5.1); Sodium 132 mmol/L (136-145); Total Protein 7.6 g/dL (6.4-8.2)
[2020-12-11 15:28] LABS: Troponin I < 0.05 ng/mL (<0.06)
[2020-12-11] MEDS: Omnipaque 350 MG/ML 100 ML BTL IJ (16:18)
[2020-12-11] MEDS: Normal Saline - Diluent 50 ML VIAL IV (16:18)
--- NOTE | 2020-12-11 16:18 | DI.CT_ITS ---
EXAM: CT CHEST PE CTA CLINICAL HISTORY: chest pain, shortness of breath. TECHNIQUE: Imaging Protocol: Axial CT angiography was performed with multi-slice acquisition and mu lti-planar and/or 3D reconstructions. CONTRAST MATERIAL: Intravenous: Omnipaque 350 Contrast volume:structured data in ml COMPARISON: CT CT CHEST PE CTA from 05/14/2020 FINDINGS: Pulmonary Arteries: No evidence of filling defect to suggest pulmonary emboli. Tracheobronchial tree: Patent where visualized. Mediastinum and [place]: No dominant adenopathy or fluid collection. Pulmonary parenchyma: No consolidation or dominant measurable mass. Right apical scarring. Pleura: No effusion or pneumothorax. Heart: The heart is not dilated. Minimal coronary artery calcifications are seen. Aorta: Thoracic aorta non-dilated. Aortic valve prosthesis. Mild atherosclerotic changes. Upper abdomen: Small hiatal hernia. Bones: Left shoulder prosthesis. Degenerative disc changes. IMPRESSION: No evidence of pulmonary embolism or other acute abnormality.. RADIATION DOSE DELIVERED: 283.33mGy.cm Total DLP DATA REPOSITORY: All CT scans at this facility are submitted to the National Radiology Data Registry (NRDR) Dose Index Registry (DIR) with the [employer] (A[employer]). RADIATION OPTIMIZATION: All CT scans at this facility use at least one of these dose optimization te chniques: automated exposure control; mA and/or kV adjustment per patient size (includes targeted exa ms where dose is matched to clinical indication); or iterative reconstruction.
--- NOTE | 2020-12-11 16:31 | DI.VRAD_ITS ---
PROCEDURE INFORMATION: Exam: CTA Chest With Contrast Exam date and time: 12/11/2020 4:08 PM Age: 80 years old Clinical indication: Shortness of breath TECHNIQUE: Imaging protocol: Computed tomographic angiography of the chest with contrast. 3D rendering (Not supervised by radiologist): MIP and/or 3D reconstructed images were created by the technologist. Radiation optimization: All CT scans at this facility use at least one of these dose optimization techniques: automated exposure control; mA and/or kV adjustment per patient size (includes targeted exams where dose is matched to clinical indication); or iterative reconstruction. Contrast material: OMNIPAQUE 350; Contrast volume: 100 ml; Contrast route: INTRAVENOUS (IV); COMPARISON: CT CHEST PE CTA 05/14/2020 2:54 PM FINDINGS: Pulmonary arteries: Normal. No pulmonary emboli. Aorta: Unremarkable. No aortic aneurysm. No aortic dissection. Lungs: Minimal apical scarring is present. The lungs appear free of segmental or lobar consolidation. No pulmonary masses are noted. Pleural spaces: Unremarkable. No pneumothorax. No pleural effusion. Heart: Status post aortic valve replacement. Lymph nodes: Unremarkable. No enlarged lymph nodes. Bones/joints: Chronic degenerative changes of the spine are present. Status post left shoulder arthroplasty. Soft tissues: Unremarkable. IMPRESSION: 1. No evidence of pulmonary embolism. 2. Chronic changes as described above. Dictated and Authenticated by: Thor Richey MD. Ordering:BERNADINE Roach MD
[2020-12-11] MEDS: Albuterol/Ipratropium 3 ML UPD VIAL UPD (16:46)
[2020-12-11 18:00] LABS: Troponin I < 0.05 ng/mL (<0.06)
== END 2020-12-11 17:55 | disposition home or self-care (01) ==
PROVIDERS: Physician Assistant; Emergency Provider Registered Nurse Emergency; PCP Family Medicine
DX: R06.00 Dyspnea, unspecified (principal); R07.89 Other chest pain; Z53.29 Procedure and treatment not carried out because of patient's decision for other reasons
CPT/HCPCS: 71275; 80053; 93005; 94640; 99285; 83735; 83880; 84484; 85025; 93010; 99283; J3490; J7620

== ENCOUNTER 2021-01-22 13:32 | Outpatient (CLI) | payer MEDICARE, OTHER, SELFPAY ==
--- NOTE | 2021-01-22 13:30 | RT.EKG_ITS ---
APPROVED REPORT Exam: Resting ECG Reason for Exam: Routine pre-op testing Patient Location: O HR:87 bpm ECG Measurements Heart Rate 87 AXIS NV 187 P 73 QRSd 80 QRS 55 QT 332 T 63 QTc 399 Conclusion Sinus rhythm...normal P axis, V-rate 60- 99 Left atrial enlargement...P, P'>60mS, <-0.15mV V1
== END 2021-01-22 13:33 | disposition home or self-care (01) ==
LOC: DI.KIM 13:35
PROVIDERS: PCP Family Medicine; Visit Provider Family Medicine
DX: Z01.810 Encounter for preprocedural cardiovascular examination (principal)
CPT/HCPCS: 93010

== ENCOUNTER 2021-01-25 03:09 | Outpatient (CLI) | payer MEDICARE, OTHER, SELFPAY ==
[2021-01-25 17:11] LABS: Abs Immature Grans 0.07 10^3/uL (0.0-0.06); Absolute Basophil Count 0.04 10^3/uL (0.0-0.2); Absolute Eosinophil Count 0.14 10^3/uL (0.0-0.7); Absolute Lymphocyte Count 2.33 10^3/uL (1.2-3.4); Absolute Monocyte Count 0.77 10^3/uL (0.1-0.8); Absolute Neutrophil Count 7.54 10^3/uL (1.2-6.7); Basophils % 0.4; Eosinophils % 1.3; HCT 47.5 % (40.0-50.0); HGB 15.6 g/dL (13.5-17.5); Immature Grans % 0.6; Lymphocytes % 21.4; MCH 29.8 pg (27.0-33.0); MCHC 32.8 % (32.0-36.0); MCV 90.8 fL (80-95); MPV 9.9 fL (8.0-11.0); Monocytes % 7.1; Neutrophils % 69.2; Nucleated RBC 0 %; Platelet Count 190 10^3/uL (130-400); RBC 5.23 10^6/uL (4.36-5.78); RDW 14.5 % (11.8-14.1); RDW-SD 48.7 fL; WBC 10.89 10^3/uL (4.4-10.8)
[2021-01-25 17:45] LABS: ALT 30 U/L (16-63); AST 23 U/L (15-37); Albumin 3.6 g/dL (3.4-5.0); Alkaline Phosphatase 54 U/L (46-116); Anion Gap 4.7 mmol/L (3-11); BUN 24 mg/dL (7-18); Bilirubin, Total 0.5 mg/dL (0.2-1.0); CO2 29.3 mmol/L (21.0-32.0); CREATININE 1.7 mg/dL (0.70-1.30); Calcium 9.6 mg/dL (8.5-10.1); Chloride 104 mmol/L (98-107); Estimated GFR 38.78 (mL/min/1.73m2); Glucose 121 mg/dL (74-106); Potassium 4.5 mmol/L (3.5-5.1); Sodium 138 mmol/L (136-145); Total Protein 6.1 g/dL (6.4-8.2)
== END 2021-01-25 03:10 | disposition home or self-care (01) ==
LOC: LBO 03:09
PROVIDERS: PCP Family Medicine; Visit Provider Family Medicine
DX: Z01.818 Encounter for other preprocedural examination (principal); I10 Essential (primary) hypertension; E78.5 Hyperlipidemia, unspecified
CPT/HCPCS: 36415; 80053; 85025

== ENCOUNTER 2021-03-27 02:23 | Outpatient (CLI) | payer MEDICARE, OTHER, SELFPAY ==
--- NOTE | 2021-03-27 14:50 | DI.RAD_ITS ---
Exam(s) XR TIB/FIB LT EXAM: XR TIB/FIB LT CLINICAL HISTORY: Expanding hematoma, evaluate for underlying fx,[id number]. TECHNIQUE: 2D digital imaging was performed. COMPARISON: No exams were available for comparison FINDINGS: There is no evidence of acute fracture. No osseous lesions. Vascular calcification is noted in the peroneal artery in the calf indicating atherosclerotic involvement. Bone density appears normal. IMPRESSION: DATA REPOSITORY: RADIATION DOSE DELIVERED:
== END 2021-03-27 02:43 ==
PROVIDERS: PCP Family Medicine; Visit Provider Family Medicine
DX: S80.12XA Contusion of left lower leg, initial encounter (principal); X58.XXXA Exposure to other specified factors, initial encounter
CPT/HCPCS: 73590

== ENCOUNTER 2021-04-08 14:59 | Emergency (ER) | payer MEDICARE, OTHER, SELFPAY ==
[2021-04-08] VITALS (18 sets, daily range): BP systolic 141–159; BP diastolic 79–86; PULSE 72–89; RESP 13–22; TEMP 36.3; O2SAT 97–99
--- NOTE | 2021-04-08 15:00 | RT.EKG_ITS ---
APPROVED REPORT Exam: Resting ECG Reason for Exam: chest pain Patient Location: E HR:80 bpm ECG Measurements Heart Rate 80 AXIS AL 183 P 62 QRSd 86 QRS 53 QT 354 T 63 QTc 409 Conclusion Sinus rhythm...normal P axis, V-rate 60- 99 Probable left atrial enlargement...P >50mS, <-0.10mV V1
--- NOTE | 2021-04-08 15:13 | ED.GENADUL_ITS ---
Discharge Plan Disposition Patient Disposition: HOME Condition: Stable Discharge Details Clinical Impression: Jaw pain, Chest pain in adult Primary Care Provider: Umesh Covarrubias ED Provider: Estefany Mark Home Meds and New Rx's Prescriptions: Continued astragalus root 470 mg capsule 470 mg PO DAILY RF: 0 magnesium amino acid chelate 100 mg tablet 200 mg PO HS RF: 0 lorazepam 1 mg tablet 1 mg PO QHS PRN (Reason: insomnia/back spasms) Qty: 30 RF: 2 Breo Ellipta 200-25 mcg/dose blister with device 1 inh IH DAILY RF: 0 Hold Instructions: Changed by Provider (DME) mucus clearing device Device See Rx Instructions .ROUTE .MEDSUPPLY Qty: 1 RF: 0 sildenafil 50 mg tablet 50 mg PO DAILY PRN (Reason: sexual activity) Qty: 20 RF: 3 albuterol sulfate 90 mcg/actuation HFA aerosol inhaler 2 puff inhalation Q6H PRN (Reason: cough) Qty: 18 RF: 8 pantoprazole 40 mg tablet,delayed release (DR/EC) 40 mg PO DAILY Qty: 90 RF: 3 rosuvastatin 20 mg tablet 20 mg PO DAILY Qty: 90 RF: 3 losartan 50 mg tablet 50 mg PO DAILY Qty: 90 RF: 3 meclizine 25 mg tablet 25 mg PO TID PRN (Reason: dizziness) Qty: 90 RF: 0 aspirin [Aspir-81] 81 MG tablet,delayed release (DR/EC) 81 mg PO DAILY RF: 0 vitamin B complex Capsule 1 cap PO DAILY RF: 0 Dairy Aid 3,000 unit Tablet,Chewable 3,000 unit PO DAILY RF: 0 coenzyme Q10 [Co Q-10] 100 mg Capsule 300 mg PO DAILY RF: 0 lycopene 10 mg Capsule 10 mg PO DAILY RF: 0 cholecalciferol (vitamin D3) [Vitamin D3] 2,000 unit Tablet 2,000 unit PO DAILY RF: 0 calcium citrate 760 mg calcium /3.5 gram Granules 760 mg PO DAILY RF: 0 Probiotic 3 billion cell Capsule 3,000 mmu cells PO DAILY RF: 0 Mcdonald 3-6-9 1,200 mg Capsule 1 cap PO DAILY RF: 0 Discharge Instructions Instructions: Chest Pain (ED) Additional Instructions: At this time the cardiac work-up is within normal limits. No significant change on the EKG today. However I do recommend follow-up with cardiology and obtaining a outpatient stress test if symptoms recur. Follow up with primary care provider in 3-5 days. Return to ED sooner if any worsening or concerns. Increase oral fluids. Referrals: Judy Weinstein MD [ [facility] STAFF PHYSICIAN] - 1 week (Chest Pain, Care establishment, hx of aortic valve replacement) Umesh Covarrubias DO [Primary Care Provider] - Medical Decision Making 80-year-old male with a history of aortic valve replacement presents to the ER with jaw pain which occurred approximately 24 hours prior to arrival and has since resolved. He denies any other additional episodes or chest pain upon arrival. EKG was reviewed by Dr. Maurilio Heck MD ER attending, please see his official report and review no significant ST elevation or depression noted old EKG available for review. At this time cardiac workup ordered including serial troponins, chest x-ray, and ultrasound of his left lower extremity to rule out DVT due to unilateral swelling Labs are largely within normal limits, creatinine 1.4 GFR is 48, does have chronic kidney disease with improved from previous labs. Initial troponin is within normal limits. Preliminary result received from [employer] [facility], who reports negative for DVT to left lower extremity. Old hematoma noted to the anterior proximal fields. 1634: Patient reevaluation, upon entering room he is speaking on the phone and appears in stable condition alert and oriented. He has remained chest pain-free since his arrival to the department. I did discuss his initial lab results and imaging results with him he verbalizes understanding. He is in agreement to wait until the second troponin approximately approximately for those results. I did discuss with him cardiology follow-up and possible need for stress test. He does need to get established with a new aligner barrel and receiver as his aligner barrel and receiver that he was seen was in [place]. Will refer him to Dr. Judy Weinstein for establishment of care. EXAM: US LOWER EXTREMITY VENOUS LT CLINICAL HISTORY: Leg swelling FINDINGS: There is no evidence of intraluminal thrombus and there is normal compression and augmentation demonstrated within the common femoral vein, femoral vein, and popliteal vein. In the ipsilateral calf the interrogated veins also exhibit normal compression/ augmentation properties. The ipsilateral saphenofemoral junction is patent. However, left anterior fields there is a 3.8 by 2.3 x 0.8 cm complex fluid collection. This probably hematoma. IMPRESSION: 1. No evidence of DVT in the left lower extremity. 2. 38 x 23 x 8 millimeter hematoma in the anterior left fields. Serial troponin is within normal limit patient has remained chest pain-free since his stay here in the department. His discharge home. I will place a referral for cardiology Dr. Weinstein at patient request. Patient states that he wishes to establish care here at [facility] cardiology. He was seen a aligner barrel and receiver in [place] previously. He remained hemodynamically stable throughout stay. Alert and oriented ambulatory without difficulty. This text was generated using coUrbanizeation system, please disregard any oddities of phrase or misspellings. Medical Records Medical records reviewed: Yes I reviewed the patient's medical records. Medical records narrative: Records reviewed from his echocardiogram completed here on March 01, 2020 at that time showed 50% ejection fracture and noted to have a bioprosthetic aortic valve replacement. Also reviewed CT chest which was done December 11, 2020 negative for PE or filling defects. Imaging Data Radiologic Study: Imaging: X-Ray Radiologist's impression: Chest X-Ray AP/ Lat FINDINGS: There is a prosthetic aortic valve. No sternotomy wires. Heart size is normal and the mediastinum is not widened. There is a left shoulder prosthesis and evidence of previous surgery in the right shoulder. There are no pulmonary infiltrates nor pleural effusions. No pulmonary edema. Two subtle areas of density are seen in the right lung although this may be due to overlapping rib shadows. Left lung is clear. Lungs are clear. No infiltrates nor pleural effusions. IMPRESSION: As above. If clinically indicated follow-up CT scan can be performed. Lab Data Lab results reviewed: Yes I reviewed the patient's lab results. HPI General Mode of arrival: EMS . Date/Time Provider Initiated Documentation: 04/08/21 15:00 . Limitations to Documentation: no limitations . Information obtained by: patient and RN notes reviewed . HPI Narrative: 80-year-old male with a past medical history of aortic valve replacement, hypertension, high cholesterol chronic kidney disease, prostate cancer, sleep apnea presents to the ER with complaint of left jaw pain occurred yesterday for approximately 5 minutes while patient was getting up to go brush his teeth and then subsided. Patient states that the pain got so bad that he almost called 911. He states that he took a couple of aspirin yesterday prior to the pain subsiding. He denies any associated symptoms during the episode including shortness of breath, dizziness, nausea, or diaphoresis. Patient did take a baby aspirin 2 to 325 mg aspirin prior to arrival. He states that he has not taken any last phosphodiesterase inhibitors for the last year. Related Data Home Medications Medication Instructions Recorded Confirmed aspirin [Aspir-81] 81 mg PO DAILY 05/27/14 04/08/21 Dairy Aid 3,000 unit PO DAILY 09/03/19 04/08/21 Mcdonald 3-6-9 1 cap PO DAILY 09/03/19 04/08/21 Probiotic 3,000 mmu cells PO DAILY 09/03/19 04/08/21 calcium citrate 760 mg PO DAILY 09/03/19 04/08/21 cholecalciferol (vitamin D3) 2,000 unit PO DAILY 09/03/19 04/08/21 [Vitamin D3] coenzyme Q10 [Co Q-10] 300 mg PO DAILY 09/03/19 04/08/21 lycopene 10 mg PO DAILY 09/03/19 04/08/21 vitamin B complex 1 cap PO DAILY 09/03/19 04/08/21 fluticasone furoate 200 1 inh IH DAILY 03/05/20 04/08/21 mcg-vilanterol 25 mcg/dose inhalation powder mucus clearing device #1 each 03/05/20 04/04/21 sildenafil 50 mg tablet 50 mg PO DAILY PRN #20 tab 06/05/20 04/08/21 astragalus root 470 mg capsule 470 mg PO DAILY 09/17/20 04/08/21 albuterol sulfate 90 mcg/actuation 2 puff INHALATION Q6H PRN #18 g 10/16/20 04/08/21 aerosol inhaler pantoprazole 40 mg tablet,delayed 40 mg PO DAILY #90 tab 11/12/20 04/08/21 release losartan 50 mg tablet 50 mg PO DAILY #90 tab 12/10/20 04/08/21 rosuvastatin 20 mg tablet 20 mg PO DAILY #90 tab 12/10/20 04/08/21 meclizine 25 mg tablet 25 mg PO TID PRN #90 tab 12/27/20 04/08/21 magnesium amino acid chelate 100 200 mg PO HS tab 01/22/21 04/08/21 mg tablet lorazepam 1 mg tablet 1 mg PO QHS PRN #30 tab 04/04/21 04/08/21 Previous Rx's Medication Instructions Recorded sildenafil 50 mg tablet 50 mg PO DAILY PRN #20 tab 06/05/20 albuterol sulfate 90 mcg/actuation 2 puff INHALATION Q6H PRN #18 g 10/16/20 aerosol inhaler pantoprazole 40 mg tablet,delayed 40 mg PO DAILY #90 tab 11/12/20 release losartan 50 mg tablet 50 mg PO DAILY #90 tab 12/10/20 rosuvastatin 20 mg tablet 20 mg PO DAILY #90 tab 12/10/20 meclizine 25 mg tablet 25 mg PO TID PRN #90 tab 12/27/20 lorazepam 1 mg tablet 1 mg PO QHS PRN #30 tab 04/04/21 Allergies Allergy/AdvReac Type Severity Reaction Status Date / Time sulfamethoxazole Allergy turns red Verified 04/08/21 15:20 [From Bactrim] trimethoprim [From Bactrim] Allergy turns red Verified 04/08/21 15:20 ropinirole AdvReac Severe insomina, Verified 04/08/21 15:20 weakness, intense fatigue amoxicillin [Amoxicillin] AdvReac Mild Skin Rash Verified 04/08/21 15:20 Penicillins AdvReac Unknown as a kid Verified 04/08/21 15:20 General Stated Complaint: GenMedical ANIBAL: 3 Review of Systems Narrative: Constitutional: Negative for weight loss, alert and oriented, well groomed, normal body habitus, appears comfortable. HEENT: Denies trauma, headaches, blurry vision, nasal discharge, sore throat, trouble swallowing. Chest: Denies current chest pain, notes pain upon arrival, no palpitations, irregular rhythm. Respiratory: Denies Shortness of breath, cough, hemoptysis. GI: Denies abdominal pain, nausea, vomiting, diarrhea, constipation. : Denies dysuria, hematuria, flank pain, rectal bleeding. Neuro: Denies dizziness, blurry vision, weakness, syncope, headache or facial numbness. Hematologic: Denies easy bruising, intolerance to heat or cold, hair loss. Left lower extremity swelling for quite a while report he did have a hematoma to the left anterior fields and attributes the swelling to that. [facility] Medical History Aortic valve disorder Cerebrovascular disease CKD (chronic kidney disease) Depressive disorder Diverticular disease of colon Diverticulitis Dizziness and giddiness GERD (gastroesophageal reflux disease) Headache Hip osteoarthritis History of pyloric stenosis as a child HTN (hypertension) Hypercholesterolemia Hyponatremia Iron deficiency anemia Malaise and fatigue Obstructive sleep apnea (~2018) Moderate-PAP therapy Peripheral vascular disease Pre-op testing Prostate cancer White coat syndrome with hypertension Tests in the 120s at home Surgical History H/O aortic valve replacement H/O hemorrhoidectomy H/O shoulder surgery History of colon resection History of hernia repair History of tonsillectomy Family History Father Substance abuse Tuberculosis Mother Breast cancer Heart disease Sister Cancer Heart disease Hypertension Social History Smoking/Tobacco Use Status: Former Tobacco Use Quit Date: 09/07/1964 Pack- years: 42 Tobacco: How many years used: 14 Smoking risk assessment performed?: Yes Alcohol Intake: former Drug use: Never Substance use type: does not use Adopted: No Caregiver/Support person: No Foster care: No Household members: spouse Housing: house Number of Children: 1 Do you need help understanding health information?: Never 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 Appears stated age. Normal body habitus. Head: Normocephalic, no trauma. Eyes: Pupils PERRLA, Red reflex noted, EOM's intact. Eyelids symmetrical without lesions, discharge, or swelling. ENT: Bilateral TM's WNL, External ear normal to inspection, no mastoid TTP, swelling, or erythema, Nasal turbinates WNL, no nasal discharge. Normal dentition, Posterior pharynx WNL, no exudate. Chest: RRR, Normal S1, S2, distal pulses intact. Resp: Lungs clear to auscultation bilaterally, no wheezes, rales, or rhonchi. Musculoskeletal: Normal gait, 5/5 strength to all four extremities. Skin: No suspicious rashes or lesions. Capillary refill less than 2 sec. Neurologic: Cranial nerves II-XII intact. Alert and oriented x 3. DTR's intact. Hematologic/Lymphatic: No ecchymosis, no lymphadenopathy. Course Vital Signs Vital signs: Vital Signs Pulse 89 04/08/21 15:02 Respiratory Rate 17 04/08/21 15:02 Blood Pressure 159/86 H 04/08/21 15:02 Pulse Oximetry 97 04/08/21 15:02 Pulse 89 04/08/21 15:02 Respiratory Rate 17 04/08/21 15:02 Respiratory Effort Non-Labored 04/08/21 15:08 Blood Pressure 159/86 H 04/08/21 15:02 Blood Pressure Position Supine 04/08/21 15:02 Pulse Oximetry 97 04/08/21 15:02 Oxygen Delivery Method Room Air 04/08/21 15:02 Oxygen Flow Rate 0 04/08/21 15:02 Pain Level 0 04/08/21 15:02
--- NOTE | 2021-04-08 15:15 | DI.RAD_ITS ---
Exam(s) XR CHEST 2V PA LATERAL EXAM: XR CHEST 2V PA LATERAL CLINICAL HISTORY: Chest pain/jaw pain. TECHNIQUE: 2D digital imaging was performed. COMPARISON: CR CHEST 2 VIEWS PA,LAT from 06/07/2017 FINDINGS: There is a prosthetic aortic valve. No sternotomy wires. Heart size is normal and the mediastinum i s not widened. There is a left shoulder prosthesis and evidence of previous surgery in the right andrea ulder. There are no pulmonary infiltrates nor pleural effusions. No pulmonary edema. Two subtle ar eas of density are seen in the right lung although this may be due to overlapping rib shadows. Left lung is clear. Lungs are clear. No infiltrates nor pleural effusions. IMPRESSION: As above. If clinically indicated follow-up CT scan can be performed. DATA REPOSITORY: RADIATION DOSE DELIVERED:
--- NOTE | 2021-04-08 15:15 | DI.US_ITS ---
Exam(s) US LOWER EXTREMITY VENOUS LT EXAM: US LOWER EXTREMITY VENOUS LT CLINICAL HISTORY: Leg swelling TECHNIQUE: Grayscale, color, and doppler imaging of the deep venous system of the lower extremity w as performed. COMPARISON: US US CAROTID from 03/06/2020 FINDINGS: There is no evidence of intraluminal thrombus and there is normal compression and augmentation demons trated within the common femoral vein, femoral vein, and popliteal vein. In the ipsilateral calf the interrogated veins also exhibit normal compression/ augmentation properti es. The ipsilateral saphenofemoral junction is patent. However, left anterior fields there is a 3.8 by 2.3 x 0.8 cm complex fluid collection. This probably h ematoma. IMPRESSION: 1. No evidence of DVT in the left lower extremity. 2. 38 x 23 x 8 millimeter hematoma in the anterior left fields. DATA REPOSITORY:
[2021-04-08 15:24] LABS: Abs Immature Grans 0.07 10^3/uL (0.0-0.06); Absolute Basophil Count 0.04 10^3/uL (0.0-0.2); Absolute Eosinophil Count 0.14 10^3/uL (0.0-0.7); Absolute Lymphocyte Count 2.13 10^3/uL (1.2-3.4); Absolute Neutrophil Count 7.61 10^3/uL (1.2-6.7); Basophils % 0.4; Eosinophils % 1.3; HCT 46.5 % (40.0-50.0); HGB 15.4 g/dL (13.5-17.5); Immature Grans % 0.6; Lymphocytes % 19.7; MCH 29.9 pg (27.0-33.0); MCHC 33.1 % (32.0-36.0); MCV 90.3 fL (80-95); MPV 9.7 fL (8.0-11.0); Monocytes % 7.4; Neutrophils % 70.6; Nucleated RBC 0 %; Platelet Count 180 10^3/uL (130-400); RBC 5.15 10^6/uL (4.36-5.78); RDW 14.1 % (11.8-14.1); RDW-SD 47.3 fL; WBC 10.79 10^3/uL (4.4-10.8)
[2021-04-08 15:37] LABS: ALT 34 U/L (16-63); AST 29 U/L (15-37); Albumin 3.4 g/dL (3.4-5.0); Alkaline Phosphatase 55 U/L (46-116); Anion Gap 6.8 mmol/L (3-11); BUN 17 mg/dL (7-18); Bilirubin, Total 0.5 mg/dL (0.2-1.0); CO2 26.2 mmol/L (21.0-32.0); CREATININE 1.4 mg/dL (0.70-1.30); Calcium 9.3 mg/dL (8.5-10.1); Chloride 97 mmol/L (98-107); Estimated GFR 48.52 (mL/min/1.73m2); Glucose 101 mg/dL (74-106); Magnesium 1.8 mg/dL (1.8-2.4); Potassium 4.2 mmol/L (3.5-5.1); Sodium 130 mmol/L (136-145); Total Protein 6.3 g/dL (6.4-8.2); Troponin I < 0.05 ng/mL (<0.06)
[2021-04-08 15:44] LABS: Prothrombin Time 9.9 sec (9.3-11.0)
[2021-04-08 18:28] LABS: Troponin I < 0.05 ng/mL (<0.06)
--- NOTE | 2021-04-08 20:03 | NUR.NOTE ---
Referral faxed to Cardiology to f/u 1-2 weeks jaw pain, hx aortic valve replacement.Nursing Note:
== END 2021-04-08 19:08 | disposition home or self-care (01) ==
PROVIDERS: Emergency Provider Registered Nurse Emergency; PCP Family Medicine
DX: R68.84 Jaw pain (principal); R07.9 Chest pain, unspecified; R22.42 Localized swelling, mass and lump, left lower limb; Z95.4 Presence of other heart-valve replacement
CPT/HCPCS: 36415; 80053; 93005; 99285; 71046; 83735; 84484; 85025; 85610; 93010; 93971; 99284

== ENCOUNTER → 2021-04-26 12:48 | Outpatient (BNVA) | payer MEDICARE, OTHER, SELFPAY | PROVIDERS: PCP Family Medicine; Referring Provider Family Medicine; Visit Provider Internal Medicine Cardiovascular Disease | DX: E78.00 Pure hypercholesterolemia, unspecified (principal); I10 Essential (primary) hypertension; Z95.2 Presence of prosthetic heart valve | CPT/HCPCS: 99203; 99214 ==

== ENCOUNTER 2021-08-08 01:36 | Outpatient (CLI) | payer MEDICARE, OTHER, SELFPAY ==
--- NOTE | 2021-08-08 | DI.US_ITS ---
Exam(s) US CAROTID EXAM: US CAROTID CLINICAL HISTORY: LT CAROTID STENOSIS, I65.22. TECHNIQUE: Ultrasound carotids performed using grayscale, color-flow, and spectral Doppler imaging. COMPARISON: US US LOWER EXTREMITY VENOUS LT from 04/08/2021 FINDINGS: Grayscale, color, and Doppler imaging was performed. CAROTID ARTERIES: There is mild plaque noted in both common carotid arteries. On the left side there is plaque at the carotid bulb and proximal internal carotid artery associated with significantly elevated velocities peak systolic velocity 246 cm/sec diastolic velocity 46 cm/sec , consistent with greater than 70 percent stenosis. On the right side there is some plaque also evident in carotid bulb and proximal internal carotid art meena with lesser elevated velocities, less than 50 percent. VERTEBRAL ARTERIES: Antegrade flow is demonstrated in both vertebral arteries. Measurements: R Bulb: 45cm/s PS / 10.3cm/s ED R CCA: 63cm/s PS / 11.6cm/s ED R ECA: 106.7cm/s PS / 9.6cm/s ED R ICA Prox: 86.8cm/s PS /17.4cm/s ED R ICA Mid: 84.8cm/s PS / 18.6cm/s ED R ICA Distal: 88.7cm/s PS /15.4cm/s ED R Vert: 61.1cm/s PS / 8.4cm/s ED R SVR: 1.41 R DVR: 1.33 L Bulb: 140.9cm/s PS /24.2cm/s ED L CCA: 100.3cm/s PS / 10.9cm/s ED L ECA: 122cm/s PS /11.6cm/s ED L ICA Prox:245.8cm/s PS / 46.3cm/s ED L ICA Mid: 235.7cm/sPS / 33.3cm/s ED L ICA Distal: 97.8cm/s PS / 15.8cm/s ED L Vert: 59.8cm/s PS / 10.3cm/s ED L SVR: 2.45 L DVR: 4.25 IMPRESSION: Significant plaque bilaterally, most prominent in the left carotid bulb and proximal left ICA where t here are elevated velocities indicating stenosis greater than 70 percent. A lesser amount of stenosi s is seen on the opposite-right side (less than 50 percent). Both vertebral arteries are patent and exhibit antegrade flow. Criteria for Carotid Stenosis: Normal: ICA PSV <125 cm/s no plaque or intimal thickening is visible. <50% stenosis: ICA PSV <125 cm/s and plaque or intimal thickening is visible. 50-69% stenosis: ICA PSV is 125-250 cm/s and plaque is visible. >70% stenosis to near occlusion: ICA PSV >250 cm/s with visible plaque and luminal narrowing. DATA REPOSITORY:
== END 2021-08-08 01:56 ==
PROVIDERS: PCP Family Medicine; Visit Provider Psychiatry & Neurology Neurology
DX: I65.22 Occlusion and stenosis of left carotid artery (principal)
CPT/HCPCS: 93880

== ENCOUNTER 2021-09-22 10:15 | Inpatient (IN) | payer MEDICARE, OTHER, SELFPAY ==
[2021-09-22] VITALS (23 sets, daily range): BP systolic 110–170; BP diastolic 56–104; PULSE 82–102; RESP 11–26; TEMP 36.6; O2SAT 92–98
[2021-09-22 10:46] LABS: Abs Immature Grans 0.05 10^3/uL (0.0-0.06); Absolute Basophil Count 0.06 10^3/uL (0.0-0.2); Absolute Eosinophil Count 0.17 10^3/uL (0.0-0.7); Absolute Lymphocyte Count 2.04 10^3/uL (1.2-3.4); Absolute Monocyte Count 0.76 10^3/uL (0.1-0.8); Absolute Neutrophil Count 6.06 10^3/uL (1.2-6.7); Basophils % 0.7; Eosinophils % 1.9; HGB 16.9 g/dL (13.5-17.5); Immature Grans % 0.5; Lymphocytes % 22.3; MCH 30.1 pg (27.0-33.0); MCHC 33.1 % (32.0-36.0); MCV 90.9 fL (80-95); MPV 9.9 fL (8.0-11.0); Monocytes % 8.3; Neutrophils % 66.3; Nucleated RBC 0 %; Platelet Count 168 10^3/uL (130-400); RBC 5.61 10^6/uL (4.36-5.78); RDW 14.1 % (11.8-14.1); RDW-SD 47.4 fL; WBC 9.14 10^3/uL (4.4-10.8)
[2021-09-22 10:58] LABS: Prothrombin Time 10.4 sec (9.3-11.0)
[2021-09-22 11:00] LABS: ALT 28 U/L (16-63); AST 24 U/L (15-37); Alkaline Phosphatase 53 U/L (46-116); BUN 18 mg/dL (7-18); Bilirubin, Total 0.8 mg/dL (0.2-1.0); CREATININE 1.7 mg/dL (0.70-1.30); Calcium 9.9 mg/dL (8.5-10.1); Chloride 102 mmol/L (98-107); Estimated GFR 38.68 (mL/min/1.73m2); Glucose 90 mg/dL (74-106); Lipase 73 U/L (73-393); Potassium 4.6 mmol/L (3.5-5.1); Sodium 134 mmol/L (136-145); Total Protein 7.1 g/dL (6.4-8.2)
--- NOTE | 2021-09-22 11:30 | DI.CT_ITS ---
Exam(s) CT ABDOMEN PELVIS W EXAM: CT ABDOMEN PELVIS W CLINICAL HISTORY: GI bleed. TECHNIQUE: Imaging Protocol: Axial computed tomography images with coronal and sagittal reformatted images were created and reviewed CONTRAST MATERIAL: Intravenous: Omnipaque 80cc Oral: None COMPARISON: CT CT CHEST PE CTA from 12/11/2020 FINDINGS: VISUALIZED LUNG BASES: No nodules nor pleural effusions evident. ABDOMEN: There is no ascites. Small sliding-type hiatal hernia noted. LIVER: There are no focal hepatic lesions evident . GALLBLADDER/BILIARY: No obvious gallbladder pathology. CBD is not dilated. PANCREAS: No evidence of pancreatic mass nor dilatation of the pancreatic duct. SPLEEN: Spleen is not enlarged. No obvious intrasplenic lesions. Splenic and portal veins are paten t. ADRENALS: There are no significant adrenal masses. KIDNEYS:There is perinephric streaking bilaterally, more so around the left kidney. This, however, a ppears to have been present on the lower most images of a chest CT scan December 2020 . no cyst or solid renal masses. No intrarenal calculi. No hydronephrosis nor hydroureter. No calculi in the urinary bladder. Bladder wall appears mildly uniformly thickened.. ABDOMINAL AORTA: Abdominal aorta is not enlarged. LYMPH NODES:There is no retroperitoneal nor paraaortic adenopathy. ABDOMINAL WALL: There is a fat containing umbilical hernia. No bowel loops therein. No bowel obstru ction. GI: There is evidence of partial sigmoid resection. There is intraluminal hyperdensity just proximal to the anastomosis at this level which may indicate active bleeding. There are colonic diverticula without evidence of obvious acute diverticulitis. No appendicitis. PELVIS: GI: No small bowel obstruction. LYMPH NODES: There is no intrapelvic nor inguinal adenopathy. REPRODUCTIVE: Moderate prostate enlargement. No obturator adenopathy. URINARY BLADDER: Mild bladder wall thickening, somewhat uniform. OSSEOUS: No significant osseous lesions. Multilevel chronic degenerative disc disease. Mild anterolisthesis of L4 upon L5, degenerative in na ture related to facet arthropathy. No pars defects. IMPRESSION: 1. There is evidence of prior partial sigmoid resection. Intraluminal hyperdensity at this level pro bably reflects active bleeding. Surgical consultation recommended. 2. Diverticulosis without evidence of acute diverticulitis. No free fluid. No abscess. No free air . 3. Bilateral perinephric stranding, left more so than right but probably not new, as described above. No hydronephrosis. 4. Bladder wall thickening which is most probably in directly related to enlarged prostate gland here . Fat containing umbilical hernia and fat containing inguinal hernias. No bowel loops noted within the hernias. There is no bowel obstruction. RADIATION DOSE DELIVERED: 711.25mGy.cm Total DLP DATA REPOSITORY: All CT scans at this facility are submitted to the National Radiology Data Registry (NRDR) Dose Index Registry (DIR) with the [employer] (ACR). RADIATION OPTIMIZATION: All CT scans at this facility use at least one of these dose optimization te chniques: automated exposure control; mA and/or kV adjustment per patient size (includes targeted exa ms where dose is matched to clinical indication); or iterative reconstruction.
--- NOTE | 2021-09-22 11:50 | W.ED.GENAD ---
Discharge Plan Disposition Patient Disposition: [facility] INPATIENT Condition: Serious Discharge Details Clinical Impression: Acute GI bleeding Admit Date/Time: 09/22/21 13:18 Admit Provider: Gary Porter Attending Provider: Gary Porter Primary Care Provider: Umesh Covarrubias ED Provider: Juan Maddox Medical Decision Making This is an 81-year-old gentleman, presenting to the ER for bright red blood from rectum that began this morning. He otherwise has no acute concerns or complaints. Denies any abdominal pain whatsoever. He appears well, nontoxic, blood pressure 169/91, pulse of 91, abdomen is soft, nontender, bowel sounds equal throughout. Plan is to obtain IV access, routine screening laboratory values, give IV fluid and reassess. He currently appears to be compensating very well. Initial laboratory values are reassuring, no evidence of leukocytosis. Hemoglobin 18.9 hematocrit 51. PT 10.4 INR 1.0 potassium 4.6 creatinine 1.7 with a GFR of 38.68. LFTs unremarkable. Urinalysis unremarkable The patient continues to have multiple bouts of bloody stool that filled the bottom of the commode. Plan is to obtain a second IV, obtain type and screen, and I will obtain a CT of his abdomen and pelvis with contrast. We will obtain a repeat H&H when he returns from CT Repeat hemoglobin is 15.2 hematocrit 40.4. Blood pressure 134/86. Pulse remains in the 90s but when he gets up to use the commode it went as high as 103. He still seems to be compensating well. The CT reveals active bleeding which is likely in a focal area of the distended sigmoid colon at the level of the anastomosis. Case discussed with Dr. Stevenson who believes that the patient does require admission but request that I speak with the hospitalist team given his age and multiple comorbidities. Case was then discussed with Dr. Porter, our hospitalist team, who excepts admission of the patient and will write admission orders. I discussed the situation with our senior housekeeper who recommends admitting the patient to the ICU with MedSurg overflow given staffing shortages. I did reach out to the patient's to make her aware of his admission and his current status. I also updated Dr. Stevenson on his new H&H, blood pressure, mild tachycardia. This documentation was generated using [employer] system, please disregard any oddities of phrase or misspellings. Medical Records Medical records reviewed: Yes I reviewed the patient's medical records. Imaging Data Radiologic Study: Attestation: I personally reviewed and interpreted this imaging study as follows: Imaging: CT Scan Radiologist's impression: PROCEDURE INFORMATION: Exam: CT Abdomen And Pelvis With Contrast Exam date and time: 09/22/2021 11:35 AM Age: 81 years old Clinical indication: Other: Gi bleed TECHNIQUE: Imaging protocol: Computed tomography of the abdomen and pelvis with contrast. Contrast material: OMNIPAQUE 350; Contrast volume: 80 ml; Contrast route: INTRAVENOUS (IV); COMPARISON: US ABDOMEN 03/06/2020 12:51 PM FINDINGS: Lungs: No concerning finding. Diaphragm: Small hiatal hernia. Liver: The liver is unremarkable. Gallbladder and bile ducts: The gallbladder is unremarkable. No biliary ductal dilatation. Pancreas: The pancreas is unremarkable. Spleen: The spleen is unremarkable. Adrenal glands: The adrenal glands are unremarkable. Kidneys and ureters: No hydronephrosis or nephrolithiasis. Nonspecific perinephric fat stranding, greater than is typical. Query minor thickening of renal pelvic urothelium. Stomach and bowel: Diverticulosis without diverticulitis. Surgical anastomosis at the proximal sigmoid colon appears intact with minimal adjacent inflammatory stranding; heterogeneously hyperdense material in the focally distended sigmoid colon at level of surgical anastomosis likely corresponds to active bleeding. Appendix: A normal short appendix or appendiceal stump is identified. JOSE ORITZ Preliminary Radiology Report STACKER DRIVER (QA) DISCREPANCY? If there is a discrepancy between the preliminary and final interpretation, please notify [facility] via [email or web address]. If you do not have access to our QA portal, call our QA team at [phone] CONFIDENTIALITY STATEMENT This report is intended only for the use of the referring physician, and only in accordance with law, If you received this in error, call [phone] Page 2 of 2 Intraperitoneal space: Unremarkable. No free air. No significant fluid collection. Vasculature: Normal caliber abdominal aorta and proximal common iliac arteries with calcified atherosclerosis. Lymph nodes: Unremarkable. No enlarged lymph nodes. Urinary bladder: The bladder may be thick-walled relative to degree of distention, without perivesical inflammatory changes. Reproductive: Enlarged prostate. Bones/joints: Mild anterolisthesis of L4 on L5 and bilateral pars defects. Multilevel degenerative change of the spine. Soft tissues: Small fat containing umbilical hernia. Bilateral fat containing inguinal hernias and stranding of fat in the bilateral upper inguinal canal which may represent a small hernia versus postsurgical change. IMPRESSION: 1. Active bleeding is likely in a focal is distended segment of sigmoid colon at level of anastomosis. The anastomosis appears intact 2. Nonspecific perinephric fat stranding, minor thickening of renal pelvic urothelium suggestive of pyelitis, and possible urinary bladder wall thickening, may indicate concurrent urinary tract pathology or represent sequela of prior inflammation or infection. Correlate with urinalysis. Additionally, bladder wall thickness likely due to outlet obstruction from enlarged prostate 3. Bilateral fat containing inguinal hernias and stranding of fat in the bilateral upper inguinal canal which may represent a small hernia versus postsurgical change. Lab Data Lab results reviewed: Yes I reviewed the patient's lab results. Labs: Laboratory Tests Range/Units 09/22/21 09/22/21 09/22/21 10:37 10:37 10:37 WBC (4.4-10.8) 10^3/uL 9.14 RBC (4.36-5.78) 10^6/uL 5.61 Hgb (13.5-17.5) g/dL 16.9 Hct (40.0-50.0) % 51.0 H MCV (80-95) fL 90.9 MCH (27.0-33.0) pg 30.1 MCHC (32.0-36.0) % 33.1 RDW (11.8-14.1) % 14.1 Plt Count (130-400) 10^3/uL 168 MPV (8.0-11.0) fL 9.9 Immature Gran % 0.5 Neutrophils % 66.3 Lymphocytes % 22.3 Monocytes % 8.3 Eosinophils % 1.9 Basophils % 0.7 Nucleated RBC % % 0 Absolute Neutrophils (1.2-6.7) 10^3/uL 6.06 Absolute Lymphocytes (1.2-3.4) 10^3/uL 2.04 Absolute Monocytes (0.1-0.8) 10^3/uL 0.76 Absolute Eosinophils (0.0-0.7) 10^3/uL 0.17 Absolute Basophils (0.0-0.2) 10^3/uL 0.06 PT (9.3-11.0) sec 10.4 INR (0.9-1.1) 1.0 Sodium (136-145) mmol/L 134 L Potassium (3.5-5.1) mmol/L 4.6 Chloride (98-107) mmol/L 102 Carbon Dioxide (21.0-32.0) mmol/L 27.0 Anion Gap (3-11) mmol/L 5.0 BUN (7-18) mg/dL 18 Creatinine (0.70-1.30) mg/dL 1.7 H Estimated GFR/1.73 m2 (mL/min/1.73m2) 38.68 Glucose (74-106) mg/dL 90 Calcium (8.5-10.1) mg/dL 9.9 Total Bilirubin (0.2-1.0) mg/dL 0.8 AST (15-37) U/L 24 ALT (16-63) U/L 28 Alkaline Phosphatase (46-116) U/L 53 Total Protein (6.4-8.2) g/dL 7.1 Albumin (3.4-5.0) g/dL 4.0 Lipase (73-393) U/L 73 COVID-19 Source SARS-CoV-2 (PCR) (Negative) Patient ABO/Rh Antibody Screen Range/Units 09/22/21 09/22/21 09/22/21 10:37 13:07 13:15 WBC (4.4-10.8) 10^3/uL 9.62 RBC (4.36-5.78) 10^6/uL 5.11 Hgb (13.5-17.5) g/dL 15.2 Hct (40.0-50.0) % 46.4 MCV (80-95) fL 90.8 MCH (27.0-33.0) pg 29.7 MCHC (32.0-36.0) % 32.8 RDW (11.8-14.1) % 14.2 H Plt Count (130-400) 10^3/uL 146 MPV (8.0-11.0) fL 9.8 Immature Gran % 0.5 Neutrophils % 72.2 Lymphocytes % 18.4 Monocytes % 7.0 Eosinophils % 1.4 Basophils % 0.5 Nucleated RBC % % 0 Absolute Neutrophils (1.2-6.7) 10^3/uL 6.95 H Absolute Lymphocytes (1.2-3.4) 10^3/uL 1.77 Absolute Monocytes (0.1-0.8) 10^3/uL 0.67 Absolute Eosinophils (0.0-0.7) 10^3/uL 0.13 Absolute Basophils (0.0-0.2) 10^3/uL 0.05 PT (9.3-11.0) sec INR (0.9-1.1) Sodium (136-145) mmol/L Potassium (3.5-5.1) mmol/L Chloride (98-107) mmol/L Carbon Dioxide (21.0-32.0) mmol/L Anion Gap (3-11) mmol/L BUN (7-18) mg/dL Creatinine (0.70-1.30) mg/dL Estimated GFR/1.73 m2 (mL/min/1.73m2) Glucose (74-106) mg/dL Calcium (8.5-10.1) mg/dL Total Bilirubin (0.2-1.0) mg/dL AST (15-37) U/L ALT (16-63) U/L Alkaline Phosphatase (46-116) U/L Total Protein (6.4-8.2) g/dL Albumin (3.4-5.0) g/dL Lipase (73-393) U/L COVID-19 Source Nasal/Nares SARS-CoV-2 (PCR) (Negative) Negative Patient ABO/Rh O Positive Antibody Screen NEGATIVE HPI General Mode of arrival: ambulatory. Date/Time Provider Initiated Documentation: 09/22/21 10:23. Limitations to Documentation: no limitations. Information obtained by: patient. HPI Narrative: This is an 81-year-old gentleman, not anticoagulated, past medical history that includes partial bowel resection status post diverticulitis, hypertension, PVD, CVA, prostate cancer, iron deficiency anemia, CKD, asthma, presenting to the ER today for evaluation of passing bright red blood from his rectum. Patient states that this morning he attempted to pass gas and instead had bright red blood come from his rectum. Subsequently he has had 2 bowel movements with what he describes as brown stool covered in blood. He otherwise has no acute concerns or complaints. He denies recent illness or trauma, fever, chest pain, shortness of breath, abdominal pain, nausea, vomiting, dysuria, black tarry stools. He denies recent constipation or straining. He has never had anything like this previously. Related Data Home Medications Medication Instructions Recorded Confirmed Dairy Aid 3,000 unit PO DAILY 09/03/19 09/22/21 [place] 3-6-9 1 cap PO DAILY 09/03/19 09/22/21 Probiotic 3,000 mmu cells PO DAILY 09/03/19 09/22/21 calcium citrate 760 mg PO DAILY 09/03/19 09/22/21 cholecalciferol (vitamin D3) 2,000 unit PO DAILY 09/03/19 09/22/21 [Vitamin D3] coenzyme Q10 [Co Q-10] 300 mg PO DAILY 09/03/19 09/22/21 lycopene 10 mg PO DAILY 09/03/19 09/22/21 vitamin B complex 1 cap PO DAILY 09/03/19 09/22/21 mucus clearing device #1 each 03/05/20 06/18/21 astragalus root 470 mg capsule 470 mg PO DAILY 09/17/20 09/22/21 albuterol sulfate 90 mcg/actuation 2 puff INHALATION Q6H PRN #18 g 10/16/20 09/22/21 aerosol inhaler losartan 50 mg tablet 50 mg PO DAILY #90 tab 12/10/20 09/22/21 rosuvastatin 20 mg tablet 20 mg PO DAILY #90 tab 12/10/20 09/22/21 meclizine 25 mg tablet 25 mg PO TID PRN #90 tab 12/27/20 09/22/21 magnesium amino acid chelate 100 200 mg PO HS tab 01/22/21 09/22/21 mg tablet ascorbic acid (vitamin C) 1,000 mg 1 g PO Q6H 04/26/21 09/22/21 tablet [place] 500 mg capsule mg PO DAILY cap 04/26/21 06/18/21 sildenafil 50 mg tablet 50 mg PO DAILY PRN tab 04/26/21 09/22/21 pantoprazole 40 mg tablet,delayed 40 mg PO BID #180 tab 05/30/21 09/22/21 release ygsmwlt-wcfwsvjgleqfs-rtdafedl 250 2 tab PO .QD #90 tab 07/30/21 09/22/21 mg-250 mg-65 mg tablet lorazepam 1 mg tablet 1 mg PO QHS PRN #30 tab 07/30/21 09/22/21 Previous Rx's Medication Instructions Recorded albuterol sulfate 90 mcg/actuation 2 puff INHALATION Q6H PRN #18 g 10/16/20 aerosol inhaler losartan 50 mg tablet 50 mg PO DAILY #90 tab 12/10/20 rosuvastatin 20 mg tablet 20 mg PO DAILY #90 tab 12/10/20 meclizine 25 mg tablet 25 mg PO TID PRN #90 tab 12/27/20 pantoprazole 40 mg tablet,delayed 40 mg PO BID #180 tab 05/30/21 release uyaepel-ewrdhpjztjcww-stiesloq 250 2 tab PO .QD #90 tab 07/30/21 mg-250 mg-65 mg tablet lorazepam 1 mg tablet 1 mg PO QHS PRN #30 tab 07/30/21 Allergies Allergy/AdvReac Type Severity Reaction Status Date / Time sulfamethoxazole Allergy turns red Verified 09/22/21 10:34 [From Bactrim] trimethoprim [From Bactrim] Allergy turns red Verified 09/22/21 10:34 ropinirole AdvReac Severe insomina, Verified 09/22/21 10:34 weakness, intense fatigue amoxicillin [Amoxicillin] AdvReac Mild Skin Rash Verified 09/22/21 10:34 Penicillins AdvReac Unknown as a kid Verified 09/22/21 10:34 General Stated Complaint: GI Bleed ANIBAL: 2 Review of Systems Constitutional Constitutional: Denies fever(s), Denies headache(s) and Denies weakness Eyes Eyes: Denies change in vision ENT Ears, Nose, Mouth, and Throat: Denies headache(s) and Denies neck pain Cardiovascular Cardiovascular: Denies chest pain and Denies dyspnea Respiratory Respiratory: Denies cough and Denies dyspnea Gastrointestinal Gastrointestinal: Denies abdominal pain, Denies melena, Reports hematochezia, Denies nausea and Denies vomiting Genitourinary Genitourinary: Denies hematuria Musculoskeletal Musculoskeletal: Denies back pain and Denies neck pain Integumentary/Breasts Skin/Breast: Denies rash Neurologic Neurologic: Denies headache(s) and Denies weakness Psychiatric Psychiatric: Reports anxiety Hematologic/Lymphatic Hematologic/Lymphatic: Denies easy bleeding and Denies easy bruising PFSH All Active Problems Acute GI bleeding (Acute) Degenerative disc disease (Acute) Chronic sinusitis (Acute) Asthma (Chronic) Maxillary pain (Acute) H/O aortic valve replacement (Acute) Jaw pain (Acute) Chest pain in adult (Acute) Other fatigue (Acute) 04/01/21-sleep clinic, Yesica Hopkins MD Psychophysiologic insomnia (Acute) 04/01/21-sleep clinic, Yesica Hopkins MD Periodic limb movement disorder (Acute) 04/01/21-sleep clinic, Yesica Hopkins MD Insomnia (Chronic) Sleep Clinic. Lorazepam tx Acute dyspnea (Acute) H/O endoscopy (Acute) 11/2020 sinusitis, chronic Obstructive sleep apnea (Chronic ~2017) Moderate-PAP therapy Hip osteoarthritis (Acute) Cough (Acute) per Nikki 02/10/2020 started Breo inhaler 03/02/20 F/U with Dr Jordan, next ov 04/06/20 CKD (chronic kidney disease) (Acute) Hyponatremia (Acute) White coat syndrome with hypertension (Chronic) Tests in the 120s at home Chronic cough (Acute) Chronic pansinusitis (Acute) Headache (Acute) Depressive disorder (Acute) Iron deficiency anemia (Acute) Diverticulitis (Chronic) GERD (gastroesophageal reflux disease) (Chronic) Diverticular disease of colon (Acute) Prostate cancer (Chronic) Aortic valve disorder (Acute) Cerebrovascular disease (Acute) Malaise and fatigue (Acute) Dizziness and giddiness (Acute) Peripheral vascular disease (Chronic) Hypercholesterolemia (Acute) HTN (hypertension) (Chronic) Sialoadenitis (Acute 05/29/14) Medical History History of pyloric stenosis as a child Surgical History H/O aortic valve replacement H/O hemorrhoidectomy H/O shoulder surgery History of colon resection History of hernia repair History of tonsillectomy Family History Father Substance abuse Tuberculosis Mother Breast cancer Heart disease Sister Cancer Heart disease Hypertension Social History Smoking/Tobacco Use Status: Former Tobacco Use Quit Date: 09/07/1964 Pack-years: 42 Tobacco: How many years used: 14 Smoking risk assessment performed?: Yes Alcohol Intake: former Drug use: Never Substance use type: does not use Adopted: No Caregiver/Support person: No Foster care: No Household members: spouse Housing: house Number of Children: 1 Do you need help understanding health information?: Never 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 Sexually active: Yes Do you think of yourself as: straight/heterosexual Current gender identity: male What is your relationship status?: Panel score (0-1 are the most socially isolated patients): 1 Seatbelt use: always Drive intox or ride w/intox local 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: No Working smoke detector in home: Yes Carbon monox detector in home: Yes Do you feel safe at home: Yes Do you feel safe in your relationship?: Yes Additional Social history: 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 Exam Const General: cooperative, healthy appearing, comfortable and no acute distress Orientation: alert, awake and oriented x3 HENMT Head: normal to inspection, normocephalic and atraumatic Face and sinus: normal facial exam Mouth: moist mucous membranes Eyes General: appearance normal, both eyes and all related structures Conjunctivae: conjunctivae normal Neck Neck: normal visual inspection, full ROM, trachea midline and supple Resp Effort & Inspection: normal respiratory effort and able to speak in complete sentences Auscultation: clear to auscultation bilaterally Cardio Rate: regular rate Rhythm: regular rhythm GI Inspection: normal to inspection Palpation: soft, not firm, no guarding, no pulsatile masses and nontender Auscultation: normal bowel sounds Rectal Exam: normal sphincter tone, heme positive stool gross blood and No hemorrhoids Other: Dried blood on buttocks and rectum. No active bleeding noticed Back/Spine/Pelvis Back: no CVA tenderness and No back tenderness Skin General skin exam: no rashes or lesions noted Neuro General: patient alert, patient awake, moves all extremities and no focal motor deficits Cognition: normal cognition Speech: speech normal Motor: muscle tone normal throughout Sensory Exam: no sensory deficits noted Extrem General: normal to inspection, full ROM and capillary refill normal Psych Appearance: grossly normal Mental Status: mental status grossly normal Course Vital Signs Vital signs: Vital Signs Temperature 36.6 C 09/22/21 10:26 Pulse 91 H 09/22/21 10:26 Respiratory Rate 16 09/22/21 10:26 Blood Pressure 169/91 H 09/22/21 10:26 Pulse Oximetry 92 09/22/21 10:26 Temperature 36.6 C 09/22/21 10:26 Pulse 91 H 09/22/21 10:26 Respiratory Rate 16 09/22/21 10:26 Respiratory Effort Non-Labored 09/22/21 10:32 Blood Pressure 169/91 H 09/22/21 10:26 Blood Pressure Position Sitting 09/22/21 10:26 Pulse Oximetry 92 09/22/21 10:26 Oxygen Delivery Method Room Air 09/22/21 10:26 Oxygen Flow Rate 0 09/22/21 10:26 Pain Level 0 09/22/21 10:26 Lab/Test Results Lab/Test Results: Laboratory Tests Range/Units 09/22/21 09/22/21 09/22/21 10:37 10:37 10:37 WBC (4.4-10.8) 10^3/uL 9.14 RBC (4.36-5.78) 10^6/uL 5.61 Hgb (13.5-17.5) g/dL 16.9 Hct (40.0-50.0) % 51.0 H MCV (80-95) fL 90.9 MCH (27.0-33.0) pg 30.1 MCHC (32.0-36.0) % 33.1 RDW (11.8-14.1) % 14.1 Plt Count (130-400) 10^3/uL 168 MPV (8.0-11.0) fL 9.9 Immature Gran % 0.5 Neutrophils % 66.3 Lymphocytes % 22.3 Monocytes % 8.3 Eosinophils % 1.9 Basophils % 0.7 Nucleated RBC % % 0 Absolute Neutrophils (1.2-6.7) 10^3/uL 6.06 Absolute Lymphocytes (1.2-3.4) 10^3/uL 2.04 Absolute Monocytes (0.1-0.8) 10^3/uL 0.76 Absolute Eosinophils (0.0-0.7) 10^3/uL 0.17 Absolute Basophils (0.0-0.2) 10^3/uL 0.06 PT (9.3-11.0) sec 10.4 INR (0.9-1.1) 1.0 Sodium (136-145) mmol/L 134 L Potassium (3.5-5.1) mmol/L 4.6 Chloride (98-107) mmol/L 102 Carbon Dioxide (21.0-32.0) mmol/L 27.0 Anion Gap (3-11) mmol/L 5.0 BUN (7-18) mg/dL 18 Creatinine (0.70-1.30) mg/dL 1.7 H Estimated GFR/1.73 m2 (mL/min/1.73m2) 38.68 Glucose (74-106) mg/dL 90 Calcium (8.5-10.1) mg/dL 9.9 Total Bilirubin (0.2-1.0) mg/dL 0.8 AST (15-37) U/L 24 ALT (16-63) U/L 28 Alkaline Phosphatase (46-116) U/L 53 Total Protein (6.4-8.2) g/dL 7.1 Albumin (3.4-5.0) g/dL 4.0 Lipase (73-393) U/L 73 Critical Care Time Critical Care Time Critical Care Time: Yes Total Critical Care Time: 45 Attestation: Upon my evaluation, this patient had a high probability of clinically significant, life-threatening deterioration due to their current medical conditions, which required my direct attention, intervention, and personal management. I have personally provided greater than 30 minutes of critical care time exclusive of the time spend on separately billable procedures. Time includes obtaining a history, examining the patient, pulse oximetry, review of laboratory data, radiology results, discussion with consultants, arranging urgent treatment with development of a management plan, evaluation of patient's response to treatment, and monitoring for potential decompensation. Interventions were performed as documented above.
[2021-09-22] MEDS: Omnipaque 350 MG/ML 100 ML BTL IJ (12:07)
[2021-09-22] MEDS: Normal Saline Flush 10 ML SYR IVP (12:14)
--- NOTE | 2021-09-22 12:57 | DI.VRAD_ITS ---
PROCEDURE INFORMATION: Exam: CT Abdomen And Pelvis With Contrast Exam date and time: 09/22/2021 11:35 AM Age: 81 years old Clinical indication: Other: Gi bleed TECHNIQUE: Imaging protocol: Computed tomography of the abdomen and pelvis with contrast. Contrast material: OMNIPAQUE 350; Contrast volume: 80 ml; Contrast route: INTRAVENOUS (IV); COMPARISON: US ABDOMEN 03/06/2020 12:51 PM FINDINGS: Lungs: No concerning finding. Diaphragm: Small hiatal hernia. Liver: The liver is unremarkable. Gallbladder and bile ducts: The gallbladder is unremarkable. No biliary ductal dilatation. Pancreas: The pancreas is unremarkable. Spleen: The spleen is unremarkable. Adrenal glands: The adrenal glands are unremarkable. Kidneys and ureters: No hydronephrosis or nephrolithiasis. Nonspecific perinephric fat stranding, greater than is typical. Query minor thickening of renal pelvic urothelium. Stomach and bowel: Diverticulosis without diverticulitis. Surgical anastomosis at the proximal sigmoid colon appears intact with minimal adjacent inflammatory stranding; heterogeneously hyperdense material in the focally distended sigmoid colon at level of surgical anastomosis likely corresponds to active bleeding. Appendix: A normal short appendix or appendiceal stump is identified. Intraperitoneal space: Unremarkable. No free air. No significant fluid collection. Vasculature: Normal caliber abdominal aorta and proximal common iliac arteries with calcified atherosclerosis. Lymph nodes: Unremarkable. No enlarged lymph nodes. Urinary bladder: The bladder may be thick-walled relative to degree of distention, without perivesical inflammatory changes. Reproductive: Enlarged prostate. Bones/joints: Mild anterolisthesis of L4 on L5 and bilateral pars defects. Multilevel degenerative change of the spine. Soft tissues: Small fat containing umbilical hernia. Bilateral fat containing inguinal hernias and stranding of fat in the bilateral upper inguinal canal which may represent a small hernia versus postsurgical change. IMPRESSION: 1. Active bleeding is likely in a focal is distended segment of sigmoid colon at level of anastomosis. The anastomosis appears intact 2. Nonspecific perinephric fat stranding, minor thickening of renal pelvic urothelium suggestive of pyelitis, and possible urinary bladder wall thickening, may indicate concurrent urinary tract pathology or represent sequela of prior inflammation or infection. Correlate with urinalysis. Additionally, bladder wall thickness likely due to outlet obstruction from enlarged prostate 3. Bilateral fat containing inguinal hernias and stranding of fat in the bilateral upper inguinal canal which may represent a small hernia versus postsurgical change. THIS REPORT CONTAINS FINDINGS THAT MAY BE CRITICAL TO PATIENT CARE. The findings were verbally communicated via telephone conference at 12:42 PM EST on 09/22/2021 with Juan Maddox. The findings were acknowledged and understood. Dictated and Authenticated by: Wandy Anderson MD. Ordering:JEB Martinez MD
[2021-09-22] MEDS: Normal Saline 1,000 ML 1000 ML IV (13:10)
[2021-09-22 13:19] LABS: Abs Immature Grans 0.05 10^3/uL (0.0-0.06); Absolute Basophil Count 0.05 10^3/uL (0.0-0.2); Absolute Eosinophil Count 0.13 10^3/uL (0.0-0.7); Absolute Lymphocyte Count 1.77 10^3/uL (1.2-3.4); Absolute Monocyte Count 0.67 10^3/uL (0.1-0.8); Absolute Neutrophil Count 6.95 10^3/uL (1.2-6.7); Basophils % 0.5; Eosinophils % 1.4; HCT 46.4 % (40.0-50.0); HGB 15.2 g/dL (13.5-17.5); Immature Grans % 0.5; Lymphocytes % 18.4; MCH 29.7 pg (27.0-33.0); MCHC 32.8 % (32.0-36.0); MCV 90.8 fL (80-95); MPV 9.8 fL (8.0-11.0); Neutrophils % 72.2; Nucleated RBC 0 %; Platelet Count 146 10^3/uL (130-400); RBC 5.11 10^6/uL (4.36-5.78); RDW 14.2 % (11.8-14.1); WBC 9.62 10^3/uL (4.4-10.8)
[2021-09-22 13:19] LABS: Source Nasal/Nares
[2021-09-22 14:04] LABS: COVID-19 PCR Negative (Negative)
[2021-09-22 14:08] LABS: Bilirubin Negative (Negative); Blood Negative (Negative); Clarity Clear (Clear); Glucose Negative (Negative); Ketones Negative (Negative); Leukocyte Esterase Negative (Negative); Nitrite Negative (Negative); Specific Gravity 1.015 (1.005-1.025); Urobilinogen 0.2 EU/dL (Up TO 0.2)
--- NOTE | 2021-09-22 14:41 | W.SURGCON ---
Date of service: 09/22/21 Time of Service: 14:33 Assessment and Plan Assessment and plan (1) Diverticulosis of colon with hemorrhage: Status: Acute Assessment and plan: Keep NPO, small amount of sips/ice chips OK Resuscitate with blood products if hypotensive, maintain Hb >8 Hold ASA containing products Because of his previous surgery and history of diverticulitis with known diverticulosis as seen on post colectomy colonscopy in 2016, this is most likely a diverticular bleed although given his age and co-morbidities other etiologies such as malignancy could be considered but less likely. Should he become unstable in the next 12-24hrs he would require an open colectomy in an effort to control the bleeding. I would expect a rather complex surgery as a result of his age, medical/surgical history and current co-morbidities and as a result he remains high risk for arturo and post operative complications. This would also almost guarantee him a permanent colostomy. If he continues to have GI bleeding which amazingly was localized on CT scan, I would recommend he be considered for IR angioembolization if his renal function can tolerate the amount of contrast it would require for localization assistance. He would be far better off with this less invasive approach than an open colectomy if he fails conservative measures despite aggressive resuscitation. Will remain vigilant and continue to follow. Q4-6h Hb/Hct checks. Please call me for any acute changes or concerns [phone]. (2) Acute GI bleeding: Status: Acute (3) History of diverticulitis: Status: Acute (4) History of partial colectomy: Status: Acute (5) Obstructive sleep apnea: Status: Chronic (6) H/O aortic valve replacement: Status: Acute (7) Asthma: Status: Chronic Qualifiers: Asthma complication type: uncomplicated Asthma persistence: persistent Asthma severity: severe Qualified Code(s): J45.50 - Severe persistent asthma, uncomplicated (8) GERD (gastroesophageal reflux disease): Status: Chronic (9) Prostate cancer: Status: Chronic (10) Cerebrovascular disease: Status: Acute (11) HTN (hypertension): Status: Chronic (12) Hypercholesterolemia: Status: Acute (13) Peripheral vascular disease: Status: Chronic (14) Chronic pansinusitis: Status: Acute History of Present Illness Narrative: 81 year old male with hx of diverticulitis s/p colectomy with primary anastomosis, hx of CVA in 2012, hx of aortic valve replacement, prostate cancer, obstructive sleep apnea and asthma who presented to the ER secondary to hematochezia that began earlier today. Initial labs in the ER revealed a Hb/Hct of 16.9/51 and the initial plan was to observe and repeat labs if no continued bleeding was observed in the ER with close outpatient follow up. Unfortunately, he did continue to have evidence of lower GI bleeding while in the ER so a CT with IV contrast was done revealing the likely source of bleeding within the distal descending colon at the site of previous anastomosis. Repeat labs were done due to concern for continued bleeding and after 1L of IV fluids his Hb/Hct were 15.2/46.4 respectively. His heart rate was in the 90's when he initially presented and remains there at this time. He has no other complaints and has been in his usual state of health. His last colonoscopy was on 12/21/2015 per EMR records (diagnostics > imaging) and showed diffuse diverticulosis despite colectomy. According to the most current guidelines, due to his age, screening colonoscopies wouldn't likely be continued after that unless, of course, it was clinically indicated. Consults Consult date: 09/22/21 Requesting physician: Gary Porter [facility] All Active Problems History of partial colectomy (Acute) Diverticulosis of colon with hemorrhage (Acute) History of diverticulitis (Acute) Acute GI bleeding (Acute) Degenerative disc disease (Acute) Chronic sinusitis (Acute) Asthma (Chronic) Maxillary pain (Acute) H/O aortic valve replacement (Acute) Jaw pain (Acute) Chest pain in adult (Acute) Other fatigue (Acute) 04/01/21-sleep clinic, Yesica Hopkins MD Psychophysiologic insomnia (Acute) 04/01/21-sleep clinic, Yesica Hopkins MD Periodic limb movement disorder (Acute) 04/01/21-sleep clinic, Yesica Hopkins MD Insomnia (Chronic) Sleep Clinic. Lorazepam tx Acute dyspnea (Acute) H/O endoscopy (Acute) 11/2020 sinusitis, chronic Obstructive sleep apnea (Chronic ~2017) Moderate-PAP therapy Hip osteoarthritis (Acute) Cough (Acute) per Nikki 02/10/2020 started Breo inhaler 6/26/20 F/U with Dr Jordan, next ov 04/06/20 CKD (chronic kidney disease) (Acute) Hyponatremia (Acute) White coat syndrome with hypertension (Chronic) Tests in the 120s at home Chronic cough (Acute) Chronic pansinusitis (Acute) Headache (Acute) Depressive disorder (Acute) Iron deficiency anemia (Acute) Diverticulitis (Chronic) GERD (gastroesophageal reflux disease) (Chronic) Diverticular disease of colon (Acute) Prostate cancer (Chronic) Aortic valve disorder (Acute) Cerebrovascular disease (Acute) Malaise and fatigue (Acute) Dizziness and giddiness (Acute) Peripheral vascular disease (Chronic) Hypercholesterolemia (Acute) HTN (hypertension) (Chronic) Sialoadenitis (Acute 05/29/14) Medical History History of pyloric stenosis as a child Surgical History H/O aortic valve replacement H/O hemorrhoidectomy H/O shoulder surgery History of colon resection History of hernia repair History of tonsillectomy Family History Father Substance abuse Tuberculosis Mother Breast cancer Heart disease Sister Cancer Heart disease Hypertension Social History Smoking/Tobacco Use Status: Former Tobacco Use Quit Date: 09/07/1964 Pack-years: 42 Tobacco: How many years used: 14 Smoking risk assessment performed?: Yes Alcohol Intake: former Drug use: Never Substance use type: does not use Adopted: No Caregiver/Support person: No Foster care: No Household members: spouse Housing: house Number of Children: 1 Do you need help understanding health information?: Never 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 Head: normal to inspection, normocephalic and atraumatic Face and sinus: normal facial exam Mouth: moist mucous membranes Eyes General: appearance normal, both eyes and all related structures Conjunctivae: conjunctivae normal Neck Neck: normal visual inspection, full ROM and trachea midline Resp Effort & Inspection: normal respiratory effort, able to speak in complete sentences, no audible wheezes, not labored and no respiratory distress Cardio Rate: regular rate Rhythm: regular rhythm GI Inspection: normal to inspection and non-distended Palpation: soft, not firm, no guarding, no pulsatile masses and nontender Percussion: normal to percussion Rectal Exam: heme positive stool gross blood and other (deferred as patient on commode) Other: Dried blood on buttocks and rectum. No active bleeding noticed Back/Spine/Pelvis Back: no CVA tenderness and No back tenderness Skin General skin exam: no rashes or lesions noted Neuro General: patient alert, patient awake and patient oriented x3 Cognition: normal cognition Speech: speech normal Motor: muscle tone normal throughout Sensory Exam: no sensory deficits noted Extrem General: normal to inspection, full ROM and capillary refill normal Results Last Vital Signs Temp 97.9 F 09/22/21 10:26 Pulse 90 09/22/21 14:15 Resp 17 09/22/21 14:15 BP 150/90 H 09/22/21 14:15 Pulse Ox 97 09/22/21 14:12 Labs Result diagrams: 09/22/21 13:15 09/22/21 10:37 Labs: Laboratory Results - last 24 hr 09/22/21 09/22/21 09/22/21 10:37 10:37 10:37 WBC 9.14 RBC 5.61 Hgb 16.9 Hct 51.0 H MCV 90.9 MCH 30.1 MCHC 33.1 RDW 14.1 Plt Count 168 MPV 9.9 Immature Gran % 0.5 Neutrophils % 66.3 Lymphocytes % 22.3 Monocytes % 8.3 Eosinophils % 1.9 Basophils % 0.7 Nucleated RBC % 0 Absolute Neutrophils 6.06 Absolute Lymphocytes 2.04 Absolute Monocytes 0.76 Absolute Eosinophils 0.17 Absolute Basophils 0.06 PT 10.4 INR 1.0 Sodium 134 L Potassium 4.6 Chloride 102 Carbon Dioxide 27.0 Anion Gap 5.0 BUN 18 Creatinine 1.7 H Estimated GFR/1.73 m2 38.68 Glucose 90 Calcium 9.9 Total Bilirubin 0.8 AST 24 ALT 28 Alkaline Phosphatase 53 Total Protein 7.1 Albumin 4.0 Lipase 73 Urine Color Urine Clarity Urine pH Ur Specific [place] Urine Protein Urine Ketones Urine Blood Urine Nitrite Urine Bilirubin Urine Urobilinogen Ur Leukocyte Esterase Urine Glucose COVID-19 Source SARS-CoV-2 (PCR) Patient ABO/Rh Antibody Screen 09/22/21 09/22/21 09/22/21 10:37 13:07 13:15 WBC 9.62 RBC 5.11 Hgb 15.2 Hct 46.4 MCV 90.8 MCH 29.7 MCHC 32.8 RDW 14.2 H Plt Count 146 MPV 9.8 Immature Gran % 0.5 Neutrophils % 72.2 Lymphocytes % 18.4 Monocytes % 7.0 Eosinophils % 1.4 Basophils % 0.5 Nucleated RBC % 0 Absolute Neutrophils 6.95 H Absolute Lymphocytes 1.77 Absolute Monocytes 0.67 Absolute Eosinophils 0.13 Absolute Basophils 0.05 PT INR Sodium Potassium Chloride Carbon Dioxide Anion Gap BUN Creatinine Estimated GFR/1.73 m2 Glucose Calcium Total Bilirubin AST ALT Alkaline Phosphatase Total Protein Albumin Lipase Urine Color Urine Clarity Urine pH Ur Specific [place] Urine Protein Urine Ketones Urine Blood Urine Nitrite Urine Bilirubin Urine Urobilinogen Ur Leukocyte Esterase Urine Glucose COVID-19 Source Nasal/Nares SARS-CoV-2 (PCR) Negative Patient ABO/Rh O Positive Antibody Screen NEGATIVE 09/22/21 13:49 WBC RBC Hgb Hct MCV MCH MCHC RDW Plt Count MPV Immature Gran % Neutrophils % Lymphocytes % Monocytes % Eosinophils % Basophils % Nucleated RBC % Absolute Neutrophils Absolute Lymphocytes Absolute Monocytes Absolute Eosinophils Absolute Basophils PT INR Sodium Potassium Chloride Carbon Dioxide Anion Gap BUN Creatinine Estimated GFR/1.73 m2 Glucose Calcium Total Bilirubin AST ALT Alkaline Phosphatase Total Protein Albumin Lipase Urine Color Yellow Urine Clarity Clear Urine pH 7.0 Ur Specific [place] 1.015 Urine Protein Negative Urine Ketones Negative Urine Blood Negative Urine Nitrite Negative Urine Bilirubin Negative Urine Urobilinogen 0.2 Ur Leukocyte Esterase Negative Urine Glucose Negative COVID-19 Source SARS-CoV-2 (PCR) Patient ABO/Rh Antibody Screen
--- NOTE | 2021-09-22 16:19 | HPE_ITS ---
Date of service: 09/22/21 Time of Service: 16:19 Assessment and Plan Assessment and plan (1) Diverticulosis of colon with hemorrhage: Status: Acute Assessment and plan: CT showed area of origin of bleeding; near previous anastomosus from bowel resection. Gen surgery consulted. Monitor H/H. Not a candidate for elective bowel resection at [facility] d/t significant co- morbidities. If bleeding doesn't resolve spontaneously, then will contact [facility] for discuss regarding embolization. (2) Asthma: Status: Chronic Assessment and plan: Albuterol prn. Qualifiers: Asthma severity: severe Asthma persistence: persistent Asthma complication type: uncomplicated Qualified Code(s): J45.50 - Severe persistent asthma, uncomplicated (3) H/O aortic valve replacement: Status: Acute Assessment and plan: Not requiring anticoagulation. (4) Psychophysiologic insomnia: Status: Acute Assessment and plan: Cont home prn lorazepam at HS (5) Cerebrovascular disease: Status: Acute Assessment and plan: On ASA daily. Hold d/t GI bleeding. (6) Peripheral vascular disease: Status: Chronic Assessment and plan: On aspirin but no other anti-platelet therapy. Hold d/t GI bleed. (7) Hypercholesterolemia: Status: Acute Assessment and plan: Cont Rosuvastatin. (8) HTN (hypertension): Status: Chronic Assessment and plan: Cont Losartan. Hold for hypotension. History of Present Illness History of Present Illness Chief Complaint: Bright red blood per rectum Narrative: This is an 81 yo male with a PMH of diverticulitis / bowel resection, CAD, PAD, CVA, HTN, prostate cancer, BRETT, CKD, asthma. He presented to the ED for evaluation after passing bright red blood per rectum. He subsequently had two further episodes of brown stool covered in blood. He denied abd pain, N/V. No CP/palpitations. No F/C. Hgb 16.9 > 15.2. A liter of NS administered after the first hgb blood drawn. Creatinine at his baseline; 1.7. Na 134. K 4.6. BP 169/91. HR 90's. Surgery consulted. Admitted for further monitoring. Review of Systems All systems reviewed & are unremarkable except as noted in HPI and below PFSH All Active Problems History of partial colectomy (Acute) Diverticulosis of colon with hemorrhage (Acute) History of diverticulitis (Acute) Acute GI bleeding (Acute) Degenerative disc disease (Acute) Chronic sinusitis (Acute) Asthma (Chronic) Maxillary pain (Acute) H/O aortic valve replacement (Acute) Jaw pain (Acute) Chest pain in adult (Acute) Other fatigue (Acute) 04/01/21-sleep clinic, Yesica Hopkins MD Psychophysiologic insomnia (Acute) 04/01/21-sleep clinic, Yesica Hopkins MD Periodic limb movement disorder (Acute) 04/01/21-sleep clinic, Yesica Hopkins MD Insomnia (Chronic) Sleep Clinic. Lorazepam tx Acute dyspnea (Acute) H/O endoscopy (Acute) 11/2020 sinusitis, chronic Obstructive sleep apnea (Chronic ~2017) Moderate-PAP therapy Hip osteoarthritis (Acute) Cough (Acute) per Nikki 02/10/2020 started Breo inhaler 03/02/20 F/U with Dr Jordan, next ov 04/06/20 CKD (chronic kidney disease) (Acute) Hyponatremia (Acute) White coat syndrome with hypertension (Chronic) Tests in the 120s at home Chronic cough (Acute) Chronic pansinusitis (Acute) Headache (Acute) Depressive disorder (Acute) Iron deficiency anemia (Acute) Diverticulitis (Chronic) GERD (gastroesophageal reflux disease) (Chronic) Diverticular disease of colon (Acute) Prostate cancer (Chronic) Aortic valve disorder (Acute) Cerebrovascular disease (Acute) Malaise and fatigue (Acute) Dizziness and giddiness (Acute) Peripheral vascular disease (Chronic) Hypercholesterolemia (Acute) HTN (hypertension) (Chronic) Sialoadenitis (Acute 05/29/14) Medical History History of pyloric stenosis as a child Surgical History H/O aortic valve replacement H/O hemorrhoidectomy H/O shoulder surgery History of colon resection History of hernia repair History of tonsillectomy Family History Father Substance abuse Tuberculosis Mother Breast cancer Heart disease Sister Cancer Heart disease Hypertension Social History Smoking/Tobacco Use Status: Former Tobacco Use Quit Date: 09/07/1964 Pack- years: 42 Tobacco: How many years used: 14 Smoking risk assessment performed?: Yes Alcohol Intake: former Drug use: Never Substance use type: does not use Adopted: No Caregiver/Support person: No Foster care: No Household members: spouse Housing: house Number of Children: 1 Do you need help understanding health information?: Never 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 Sexually active: Yes Do you think of yourself as: straight/heterosexual Current gender identity: male What is your relationship status?: Panel score (0-1 are the most socially isolated patients): 1 Seatbelt use: always Drive intox or ride w/intox bus driver 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: No Working smoke detector in home: Yes Carbon monox detector in home: Yes Do you feel safe at home: Yes Do you feel safe in your relationship?: Yes Additional Social history: 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 Meds Allergies and Home Medications Allergies Allergy/AdvReac Type Severity Reaction Status Date / Time sulfamethoxazole Allergy turns red Verified 09/22/21 10:34 [From Bactrim] trimethoprim [From Bactrim] Allergy turns red Verified 09/22/21 10:34 ropinirole AdvReac Severe insomina, Verified 09/22/21 10:34 weakness, intense fatigue amoxicillin [Amoxicillin] AdvReac Mild Skin Rash Verified 09/22/21 10:34 Penicillins AdvReac Unknown as a kid Verified 09/22/21 10:34 Home Medications Medication Instructions Recorded Confirmed Type Dairy Aid 3,000 unit PO DAILY 09/03/19 09/22/21 History [place] 3-6-9 1 cap PO DAILY 09/03/19 09/22/21 History Probiotic 3,000 mmu cells PO DAILY 09/03/19 09/22/21 History calcium citrate 760 mg PO DAILY 09/03/19 09/22/21 History cholecalciferol (vitamin D3) 2,000 unit PO DAILY 09/03/19 09/22/21 History [Vitamin D3] coenzyme Q10 [Co Q-10] 300 mg PO DAILY 09/03/19 09/22/21 History lycopene 10 mg PO DAILY 09/03/19 09/22/21 History vitamin B complex 1 cap PO DAILY 09/03/19 09/22/21 History mucus clearing device #1 each 03/05/20 06/18/21 History astragalus root 470 mg capsule 470 mg PO DAILY 09/17/20 09/22/21 History albuterol sulfate 90 mcg/actuation 2 puff INHALATION Q6H PRN #18 g 10/16/20 09/22/21 Rx aerosol inhaler losartan 50 mg tablet 50 mg PO DAILY #90 tab 12/10/20 09/22/21 Rx rosuvastatin 20 mg tablet 20 mg PO DAILY #90 tab 12/10/20 09/22/21 Rx meclizine 25 mg tablet 25 mg PO TID PRN #90 tab 12/27/20 09/22/21 Rx magnesium amino acid chelate 100 200 mg PO HS tab 01/22/21 09/22/21 History mg tablet ascorbic acid (vitamin C) 1,000 mg 1 g PO Q6H 04/26/21 09/22/21 History tablet [place] 500 mg capsule mg PO DAILY cap 04/26/21 06/18/21 History sildenafil 50 mg tablet 50 mg PO DAILY PRN tab 04/26/21 09/22/21 History pantoprazole 40 mg tablet,delayed 40 mg PO BID #180 tab 05/30/21 09/22/21 Rx release oxcnupr-ttvvsfyflvyij-boupvnhs 250 2 tab PO .QD #90 tab 07/30/21 09/22/21 Rx mg-250 mg-65 mg tablet lorazepam 1 mg tablet 1 mg PO QHS PRN #30 tab 07/30/21 09/22/21 Rx Exam Narrative Exam Narrative: Pleasant. Cooperative. Const General: no acute distress Nutritional Appearance: average body habitus Orientation: alert and awake HENLA Head: normal to inspection Eyes General: appearance normal, both eyes and all related structures Sclera: sclerae normal Resp Effort & Inspection: normal respiratory effort Auscultation: clear to auscultation bilaterally Cardio Rate: regular rate and tachycardic (rate in the 90's. ) Rhythm: regular rhythm Heart Sounds: S1 normal and S2 normal GI Palpation: soft and nontender Auscultation: normal bowel sounds Skin General skin exam: no rashes or lesions noted Neuro General: no focal motor deficits Cognition: normal cognition Speech: speech normal Extrem General: no pedal edema and no calf tenderness Results Labs Result diagrams: 09/22/21 13:15 09/22/21 10:37 Labs: Laboratory Results - last 24 hr 01/09/22/21 09/22/21 10:37 10:37 10:37 WBC 9.14 RBC 5.61 Hgb 16.9 Hct 51.0 H MCV 90.9 MCH 30.1 MCHC 33.1 RDW 14.1 Plt Count 168 MPV 9.9 Immature Gran % 0.5 Neutrophils % 66.3 Lymphocytes % 22.3 Monocytes % 8.3 Eosinophils % 1.9 Basophils % 0.7 Nucleated RBC % 0 Absolute Neutrophils 6.06 Absolute Lymphocytes 2.04 Absolute Monocytes 0.76 Absolute Eosinophils 0.17 Absolute Basophils 0.06 PT 10.4 INR 1.0 Sodium 134 L Potassium 4.6 Chloride 102 Carbon Dioxide 27.0 Anion Gap 5.0 BUN 18 Creatinine 1.7 H Estimated GFR/1.73 m2 38.68 Glucose 90 Calcium 9.9 Total Bilirubin 0.8 AST 24 ALT 28 Alkaline Phosphatase 53 Total Protein 7.1 Albumin 4.0 Lipase 73 Urine Color Urine Clarity Urine pH Ur Specific [place] Urine Protein Urine Ketones Urine Blood Urine Nitrite Urine Bilirubin Urine Urobilinogen Ur Leukocyte Esterase Urine Glucose COVID-19 Source SARS-CoV-2 (PCR) Patient ABO/Rh Antibody Screen 09/22/21 09/22/21 09/22/21 10:37 13:07 13:15 WBC 9.62 RBC 5.11 Hgb 15.2 Hct 46.4 MCV 90.8 MCH 29.7 MCHC 32.8 RDW 14.2 H Plt Count 146 MPV 9.8 Immature Gran % 0.5 Neutrophils % 72.2 Lymphocytes % 18.4 Monocytes % 7.0 Eosinophils % 1.4 Basophils % 0.5 Nucleated RBC % 0 Absolute Neutrophils 6.95 H Absolute Lymphocytes 1.77 Absolute Monocytes 0.67 Absolute Eosinophils 0.13 Absolute Basophils 0.05 PT INR Sodium Potassium Chloride Carbon Dioxide Anion Gap BUN Creatinine Estimated GFR/1.73 m2 Glucose Calcium Total Bilirubin AST ALT Alkaline Phosphatase Total Protein Albumin Lipase Urine Color Urine Clarity Urine pH Ur Specific [place] Urine Protein Urine Ketones Urine Blood Urine Nitrite Urine Bilirubin Urine Urobilinogen Ur Leukocyte Esterase Urine Glucose COVID-19 Source Nasal/Nares SARS-CoV-2 (PCR) Negative Patient ABO/Rh O Positive Antibody Screen NEGATIVE 09/22/21 13:49 WBC RBC Hgb Hct MCV MCH MCHC RDW Plt Count MPV Immature Gran % Neutrophils % Lymphocytes % Monocytes % Eosinophils % Basophils % Nucleated RBC % Absolute Neutrophils Absolute Lymphocytes Absolute Monocytes Absolute Eosinophils Absolute Basophils PT INR Sodium Potassium Chloride Carbon Dioxide Anion Gap BUN Creatinine Estimated GFR/1.73 m2 Glucose Calcium Total Bilirubin AST ALT Alkaline Phosphatase Total Protein Albumin Lipase Urine Color Yellow Urine Clarity Clear Urine pH 7.0 Ur Specific [place] 1.015 Urine Protein Negative Urine Ketones Negative Urine Blood Negative Urine Nitrite Negative Urine Bilirubin Negative Urine Urobilinogen 0.2 Ur Leukocyte Esterase Negative Urine Glucose Negative COVID-19 Source SARS-CoV-2 (PCR) Patient ABO/Rh Antibody Screen Last Vital Signs Temp 36.6 C 09/22/21 15:11 Pulse 95 H 09/22/21 14:44 Resp 24 09/22/21 15:11 BP 156/83 H 09/22/21 15:11 Pulse Ox 97 09/22/21 15:11
[2021-09-22] MEDS: Lactated Ringers 1,000 ML 80 ML IV (16:31)
[2021-09-22 19:05] LABS: HCT 42.8 % (40.0-50.0)
[2021-09-22] MEDS: Rosuvastatin 10 MG TAB 20 MG PO (19:48)
[2021-09-22] MEDS: Pantoprazole 40 MG TABCR PO (19:48)
[2021-09-22] MEDS: LORazepam 1 MG TAB PO (21:49)
[2021-09-23] VITALS (34 sets, daily range): BP systolic 102–137; BP diastolic 55–84; PULSE 78–104; RESP 5–36; TEMP 36.5–36.7; O2SAT 97–98
[2021-09-23] MEDS: Lactated Ringers 1,000 ML 125 ML IV (03:50)
[2021-09-23 06:58] LABS: Abs Immature Grans 0.04 10^3/uL (0.0-0.06); Absolute Basophil Count 0.04 10^3/uL (0.0-0.2); Absolute Eosinophil Count 0.23 10^3/uL (0.0-0.7); Absolute Lymphocyte Count 2.16 10^3/uL (1.2-3.4); Absolute Monocyte Count 0.78 10^3/uL (0.1-0.8); Absolute Neutrophil Count 5.14 10^3/uL (1.2-6.7); Basophils % 0.5; Eosinophils % 2.7; HCT 33.8 % (40.0-50.0); Immature Grans % 0.5; Lymphocytes % 25.7; MCH 29.6 pg (27.0-33.0); MCHC 32.5 % (32.0-36.0); MCV 91.1 fL (80-95); MPV 10.9 fL (8.0-11.0); Monocytes % 9.3; Neutrophils % 61.3; Nucleated RBC 0 %; Platelet Count 138 10^3/uL (130-400); RBC 3.71 10^6/uL (4.36-5.78); RDW 14.3 % (11.8-14.1); RDW-SD 47.8 fL; WBC 8.39 10^3/uL (4.4-10.8)
[2021-09-23 07:11] LABS: Anion Gap 8.2 mmol/L (3-11); BUN 22 mg/dL (7-18); CO2 22.8 mmol/L (21.0-32.0); CREATININE 1.5 mg/dL (0.70-1.30); Calcium 8.7 mg/dL (8.5-10.1); Chloride 107 mmol/L (98-107); Estimated GFR 44.69 (mL/min/1.73m2); Glucose 68 mg/dL (74-106); Magnesium 1.5 mg/dL (1.8-2.4); Potassium 4.4 mmol/L (3.5-5.1); Sodium 138 mmol/L (136-145)
--- NOTE | 2021-09-23 08:09 | W.PM.PROGNOT ---
Date of Service Date of service: 09/23/21 Time of Service: 08:10 Assessment and Plan Assessment and plan (1) Diverticulosis of colon with hemorrhage: Status: Acute Assessment and plan: Keep NPO, small amount of sips/ice chips OK Resuscitate with blood products if hypotensive, maintain Hgb >8 Hold ASA containing products Will continue to observe for further bleeding Pulmonary toilet Encouraged ambulation with nsg and sitting in the chair. (2) Acute GI bleeding: Status: Acute (3) History of diverticulitis: Status: Acute (4) History of partial colectomy: Status: Acute (5) Obstructive sleep apnea: Status: Chronic (6) H/O aortic valve replacement: Status: Acute (7) Asthma: Status: Chronic Qualifiers: Asthma severity: severe Asthma persistence: persistent Asthma complication type: uncomplicated Qualified Code(s): J45.50 - Severe persistent asthma, uncomplicated (8) GERD (gastroesophageal reflux disease): Status: Chronic (9) Prostate cancer: Status: Chronic (10) Cerebrovascular disease: Status: Acute (11) HTN (hypertension): Status: Chronic (12) Hypercholesterolemia: Status: Acute (13) Peripheral vascular disease: Status: Chronic (14) Chronic pansinusitis: Status: Acute Subjective Subjective Interval history since last seen: Arrive with patient resting in bed. He reports that he has not had any rectal bleeding since last night. He states he is feeling better and expressed that he is hungry. Exam Const General: cooperative, healthy appearing and comfortable Orientation: alert and oriented x3 Resp Effort & Inspection: normal respiratory effort, no audible wheezes and no cough GI Palpation: soft, no guarding and nontender Objective Last Vital Signs Temp 36.6 C 09/23/21 01:07 Pulse 88 09/23/21 05:14 Resp 20 09/23/21 05:14 BP 106/55 L 09/23/21 05:14 Pulse Ox 98 09/23/21 01:07 Laboratory Results - last 24 hr 09/22/21 09/22/21 09/22/21 10:37 10:37 10:37 WBC 9.14 RBC 5.61 Hgb 16.9 Hct 51.0 H MCV 90.9 MCH 30.1 MCHC 33.1 RDW 14.1 Plt Count 168 MPV 9.9 Immature Gran % 0.5 Neutrophils % 66.3 Lymphocytes % 22.3 Monocytes % 8.3 Eosinophils % 1.9 Basophils % 0.7 Nucleated RBC % 0 Absolute Neutrophils 6.06 Absolute Lymphocytes 2.04 Absolute Monocytes 0.76 Absolute Eosinophils 0.17 Absolute Basophils 0.06 PT 10.4 INR 1.0 Sodium 134 L Potassium 4.6 Chloride 102 Carbon Dioxide 27.0 Anion Gap 5.0 BUN 18 Creatinine 1.7 H Estimated GFR/1.73 m2 38.68 Glucose 90 Calcium 9.9 Magnesium Total Bilirubin 0.8 AST 24 ALT 28 Alkaline Phosphatase 53 Total Protein 7.1 Albumin 4.0 Lipase 73 Urine Color Urine Clarity Urine pH Ur Specific [place] Urine Protein Urine Ketones Urine Blood Urine Nitrite Urine Bilirubin Urine Urobilinogen Ur Leukocyte Esterase Urine Glucose COVID-19 Source SARS-CoV-2 (PCR) Patient ABO/Rh Antibody Screen 09/22/21 09/22/21 09/22/21 10:37 13:07 13:15 WBC 9.62 RBC 5.11 Hgb 15.2 Hct 46.4 MCV 90.8 MCH 29.7 MCHC 32.8 RDW 14.2 H Plt Count 146 MPV 9.8 Immature Gran % 0.5 Neutrophils % 72.2 Lymphocytes % 18.4 Monocytes % 7.0 Eosinophils % 1.4 Basophils % 0.5 Nucleated RBC % 0 Absolute Neutrophils 6.95 H Absolute Lymphocytes 1.77 Absolute Monocytes 0.67 Absolute Eosinophils 0.13 Absolute Basophils 0.05 PT INR Sodium Potassium Chloride Carbon Dioxide Anion Gap BUN Creatinine Estimated GFR/1.73 m2 Glucose Calcium Magnesium Total Bilirubin AST ALT Alkaline Phosphatase Total Protein Albumin Lipase Urine Color Urine Clarity Urine pH Ur Specific [place] Urine Protein Urine Ketones Urine Blood Urine Nitrite Urine Bilirubin Urine Urobilinogen Ur Leukocyte Esterase Urine Glucose COVID-19 Source Nasal/Nares SARS-CoV-2 (PCR) Negative Patient ABO/Rh O Positive Antibody Screen NEGATIVE 09/22/21 09/22/21 09/23/21 13:49 18:50 06:15 WBC RBC Hgb 14.0 Hct 42.8 MCV MCH MCHC RDW Plt Count MPV Immature Gran % Neutrophils % Lymphocytes % Monocytes % Eosinophils % Basophils % Nucleated RBC % Absolute Neutrophils Absolute Lymphocytes Absolute Monocytes Absolute Eosinophils Absolute Basophils PT INR Sodium 138 Potassium 4.4 Chloride 107 Carbon Dioxide 22.8 Anion Gap 8.2 BUN 22 H Creatinine 1.5 H Estimated GFR/1.73 m2 44.69 Glucose 68 L Calcium 8.7 Magnesium 1.5 L Total Bilirubin AST ALT Alkaline Phosphatase Total Protein Albumin Lipase Urine Color Yellow Urine Clarity Clear Urine pH 7.0 Ur Specific [place] 1.015 Urine Protein Negative Urine Ketones Negative Urine Blood Negative Urine Nitrite Negative Urine Bilirubin Negative Urine Urobilinogen 0.2 Ur Leukocyte Esterase Negative Urine Glucose Negative COVID-19 Source SARS-CoV-2 (PCR) Patient ABO/Rh Antibody Screen 09/23/21 06:15 WBC 8.39 RBC 3.71 L Hgb 11.0 L D Hct 33.8 L D MCV 91.1 MCH 29.6 MCHC 32.5 RDW 14.3 H Plt Count 138 MPV 10.9 Immature Gran % 0.5 Neutrophils % 61.3 Lymphocytes % 25.7 Monocytes % 9.3 Eosinophils % 2.7 Basophils % 0.5 Nucleated RBC % 0 Absolute Neutrophils 5.14 Absolute Lymphocytes 2.16 Absolute Monocytes 0.78 Absolute Eosinophils 0.23 Absolute Basophils 0.04 PT INR Sodium Potassium Chloride Carbon Dioxide Anion Gap BUN Creatinine Estimated GFR/1.73 m2 Glucose Calcium Magnesium Total Bilirubin AST ALT Alkaline Phosphatase Total Protein Albumin Lipase Urine Color Urine Clarity Urine pH Ur Specific [place] Urine Protein Urine Ketones Urine Blood Urine Nitrite Urine Bilirubin Urine Urobilinogen Ur Leukocyte Esterase Urine Glucose COVID-19 Source SARS-CoV-2 (PCR) Patient ABO/Rh Antibody Screen
[2021-09-23] MEDS: Cholecalciferol (Vitamin D3) 1,000 UNIT TAB 2000 UNITS PO (09:41)
[2021-09-23] MEDS: Losartan 50 MG TAB PO (09:41)
[2021-09-23] MEDS: Pantoprazole 40 MG TABCR PO ×2 (09:41→20:46)
--- NOTE | 2021-09-23 09:52 | INITIAL_ITS ---
- If Service Date Differs Date of service: 09/23/21 Time of Service: 09:52 Care Management Initial Assess REASON FOR HOSPITALIZATION:: Lower GI Bleed PAST MEDICAL HISTORY/PAST SURGICAL HISTORY:: All Active Problems . History of partial colectomy (Acute). Diverticulosis of colon with hemorrhage (Acute). History of diverticulitis (Acute). Acute GI bleeding (Acute). Degenerative disc disease (Acute). Ch ronic sinusitis (Acute). Asthma (Chronic). Maxillary pain (Acute). H/O aortic valve replacement (Acute). Jaw pain (Acute). Chest pain in adult (Acute). Other fatigue (Acute). 04/01/21-sleep clinic, Yesica Hopkins MD. Psychophysiologic insomnia (Acute). 04/01/21-sleep clinic, Yesica Hopkins MD. Periodic limb movement disorder (Acute). 04/01/21-sleep clinic, Yesica Hopkins MD. Insomnia (Chronic). Sleep Clinic. Lorazepam tx. Acute dyspnea (Acute). H/O endoscopy (Acute). 11/2020. sinusitis, chronic. Obstructive sleep apnea (Chronic ~2018). Moderate-PAP therapy. Hip osteoarthritis (Acute). Cough (Acute). rishabh Jordan 02/10/2020 started Breo inhaler. 03/02/20 F/U with Dr Jordan, next ov 04/06/20. CKD (chronic kidney disease) (Acute). Hyponatremia (Acute). White coat syndrome with hypertension (Chronic). Tests in the 120s at home. Chronic cough (Acute). Chronic pansinusitis (Acute). Headache (Acute). Depressive disorder (Acute). Iron deficiency anemia (Acute). Diverticulitis (Chronic). GERD (gastroesophageal reflux disease) (Chronic). Diverticular disease of colon (Acute). Prostate cancer (Chronic). Aortic valve disorder (Acute). Cerebrovascular disease (Acute). Malaise and fatigue (Acute). Dizziness and giddiness (Acute). Peripheral vascular disease (Chronic). Hypercholesterolemia (Acute). HTN (hypertension) (Chronic). Sialoadenitis (Acute 05/29/14). Medi zoran History . History of pyloric stenosis as a child. Surgical History . H/O aortic valve replacement. H/O hemorrhoidectomy. H/O shoulder surgery. History of colon resection. History of hernia repair. History of tonsillectomy PREVIOUS FUNCTIONAL STATUS/SOCIAL/FAMILY SUPPORTS:: Gustabo lives in [place] with his Tammie. 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 He drives and is fully independent at baseline. 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 CURRENT FUNCTIONAL STATUS:: Gustabo was lying in bed when CM met with him. He was alert and oriented and easily engaged in conversation. He is NPO, although has water at his bedside, CM clarified with RN and he have sips and chips. Gustabo has no concerns at this time. He has a phone at his bedside and is able to communicate with is as needed. ADVANCE DIRECTIVES:: On File, [facility] is Tammie Avelar, fiona Richter Has patient been provided with info about the portal/API?: Yes Did the patient sign up for the portal?: Yes (Prior to admission) CODE STATUS:: Full Code INSURANCE COVERAGE / FINANCIAL ISSUES:: Commercial Insurance, [place] Life Ins. Medicare CURRENT HOME/COMMUNITY SERVICES/EQUIPMENT:: None PRIMARY CARE PHYSICIAN:: Dr. Umesh Perry PATIENT/FAMILY EDUCATION NEEDS:: Review discharge instructions, limitations and plan to follow up with community providers. ask me three. TRANSPORTATION:: Via private vehicle with family. PLAN:: Anticipate Gustabo will discharge home when medically cleared by provider. Transport via private vehicle with family. Gustabo will follow up with community providers and discharge plan of care as prescribed.
[2021-09-23] MEDS: Magnesium Oxide 400 MG TAB PO ×2 (09:56→20:36)
[2021-09-23 11:56] LABS: HCT 34.3 % (40.0-50.0); HGB 11.3 g/dL (13.5-17.5)
--- NOTE | 2021-09-23 14:19 | PGE_ITS ---
Date of Service Date of service: 09/23/21 Time of Service: 14:19 Assessment and Plan Assessment and plan (1) Diverticulosis of colon with hemorrhage: Status: Acute Assessment and plan: CT showed area of origin of bleeding; near previous anastomosus from bowel resection. Gen surgery consult appreciated. No BRB per rectum since 10PM last night Hgb this AM of 11.3. Monitor H/H. Not a candidate for elective bowel resection at [facility] d/t significant co- morbidities. If bleeding doesn't resolve spontaneously, then will contact [facility] for discuss regarding embolization. (2) Asthma: Status: Chronic Assessment and plan: Albuterol prn. Qualifiers: Asthma severity: severe Asthma persistence: persistent Asthma complication type: uncomplicated Qualified Code(s): J45.50 - Severe persistent asthma, uncomplicated (3) H/O aortic valve replacement: Status: Acute Assessment and plan: Not requiring anticoagulation. (4) Psychophysiologic insomnia: Status: Acute Assessment and plan: Cont home prn lorazepam at HS (5) Cerebrovascular disease: Status: Acute Assessment and plan: On ASA daily. Hold d/t GI bleeding. (6) Peripheral vascular disease: Status: Chronic Assessment and plan: On aspirin but no other anti-platelet therapy. Hold d/t GI bleed. (7) Hypercholesterolemia: Status: Acute Assessment and plan: Cont Rosuvastatin. (8) HTN (hypertension): Status: Chronic Assessment and plan: Cont Losartan. Hold for hypotension. Subjective Subjective Patient reports: no new complaints and afebrile; denies nausea, vomiting and shortness of breath Interval history since last seen: No BRB per rectum since 10PM last night Gassy Exam Narrative Exam Narrative: Pleasant. Cooperative. Const General: no acute distress Nutritional Appearance: average body habitus Orientation: alert and awake [facility] Head: normal to inspection Eyes General: appearance normal, both eyes and all related structures Sclera: sclerae normal Resp Effort & Inspection: normal respiratory effort Auscultation: clear to auscultation bilaterally Cardio Rate: regular rate and tachycardic (rate in the 90's. ) Rhythm: regular rhythm Heart Sounds: S1 normal and S2 normal GI Palpation: soft and nontender Auscultation: normal bowel sounds Skin General skin exam: no rashes or lesions noted Neuro General: no focal motor deficits Cognition: normal cognition Speech: speech normal Extrem General: no pedal edema and no calf tenderness Objective Last Vital Signs Temp 36.6 C 09/23/21 01:07 Pulse 86 09/23/21 08:00 Resp 18 09/23/21 09:40 BP 121/56 L 09/23/21 08:00 Pulse Ox 98 09/23/21 01:07 Laboratory Results - last 24 hr 09/22/21 09/22/21 09/23/21 13:07 18:50 06:15 WBC RBC Hgb 14.0 Hct 42.8 MCV MCH MCHC RDW Plt Count MPV Immature Gran % Neutrophils % Lymphocytes % Monocytes % Eosinophils % Basophils % Nucleated RBC % Absolute Neutrophils Absolute Lymphocytes Absolute Monocytes Absolute Eosinophils Absolute Basophils Sodium 138 Potassium 4.4 Chloride 107 Carbon Dioxide 22.8 Anion Gap 8.2 BUN 22 H Creatinine 1.5 H Estimated GFR/1.73 m2 44.69 Glucose 68 L Calcium 8.7 Magnesium 1.5 L SARS-CoV-2 (PCR) Negative 09/23/21 09/23/21 06:15 11:50 WBC 8.39 RBC 3.71 L Hgb 11.0 L D 11.3 L Hct 33.8 L D 34.3 L MCV 91.1 MCH 29.6 MCHC 32.5 RDW 14.3 H Plt Count 138 MPV 10.9 Immature Gran % 0.5 Neutrophils % 61.3 Lymphocytes % 25.7 Monocytes % 9.3 Eosinophils % 2.7 Basophils % 0.5 Nucleated RBC % 0 Absolute Neutrophils 5.14 Absolute Lymphocytes 2.16 Absolute Monocytes 0.78 Absolute Eosinophils 0.23 Absolute Basophils 0.04 Sodium Potassium Chloride Carbon Dioxide Anion Gap BUN Creatinine Estimated GFR/1.73 m2 Glucose Calcium Magnesium SARS-CoV-2 (PCR)
[2021-09-23] MEDS: LORazepam 1 MG TAB PO (22:23)
[2021-09-24 07:20] LABS: HCT 33.8 % (40.0-50.0); HGB 11.2 g/dL (13.5-17.5)
[2021-09-24 07:45] VITALS: BP 135/71; PULSE 84; RESP 18; TEMP 36.4; O2SAT 96
[2021-09-24] MEDS: Pantoprazole 40 MG TABCR PO (08:39)
[2021-09-24] MEDS: Losartan 50 MG TAB PO (08:39)
[2021-09-24] MEDS: Cholecalciferol (Vitamin D3) 1,000 UNIT TAB 2000 UNITS PO (08:39)
[2021-09-24] MEDS: Magnesium Oxide 400 MG TAB PO (08:40)
[2021-09-24] MEDS: Normal Saline Flush 10 ML SYR IVP (08:40)
--- NOTE | 2021-09-24 08:45 | PDOC.CMPRO ---
- If Service Date Differs Date of service: 09/24/21 Time of Service: 08:45 Care Management Progress Note S/O: A: 81 year old male admitted to [facility] on 09/22/21 for Lower GI Bleed P:Anticipate Gustabo will discharge home when medically cleared by provider. Transport via private vehicle with family. Gustabo will follow up with community providers and discharge plan of care as prescribed.
--- NOTE | 2021-09-24 09:22 | PDOC.CMDIS ---
- If Service Date Differs Date of service: 09/24/21 Time of Service: 09:22 LACE Index Scoring Tool - Questions: Comorbidities: Cerebrovascular Disease, PVD, Metastatic Solid Tumor E.D. Visits: 3 Care Management Discharge Reason for Hospitalization: Lower GI Bleed Discharge Plan: Discharge home with no new services via private vehicle with . Follow up with community providers and discharge plan of care a prescribed. Patient/Family Education Needs: Review discharge instructions, limitations, medications and plan to follow up with community providers. ask me three.
[2021-09-24] MEDS: Acetaminophen 325 MG TAB PO (10:00)
--- NOTE | 2021-09-24 10:30 | DSE_ITS ---
Date of service: 09/24/21 Time of Service: 10:30 DS: Diagnosis Discharge Diagnosis (1) Diverticulosis of colon with hemorrhage: Status: Acute (2) Asthma: Status: Chronic (3) H/O aortic valve replacement: Status: Acute (4) Psychophysiologic insomnia: Status: Acute (5) Cerebrovascular disease: Status: Acute (6) Peripheral vascular disease: Status: Chronic (7) Hypercholesterolemia: Status: Acute (8) HTN (hypertension): Status: Chronic Discharge Plan Disposition Patient Disposition: HOME Condition: Improving Discharge Details Reason For Visit: Lower Gastrointestinal Bleed Admit Date/Time: 09/22/21 13:18 Admit Provider: Gary Porter Attending Provider: Gary Porter Primary Care Provider: Umesh Covarrubias [facility] Course Hospital Course: This is an 81 yo male with a PMH of diverticulitis / bowel resection, CAD, PAD, CVA, HTN, prostate cancer, BRETT, CKD, asthma. He presented to the ED for evaluation after passing bright red blood per rectum. He subsequently had two further episodes of brown stool covered in blood. He denied abd pain, N/V. No CP/palpitations. No F/C. Hgb 16.9 > 15.2. A liter of NS administered after the first hgb blood drawn. Creatinine at his baseline; 1.7. Na 134. K 4.6. BP 169/91. HR 90's. Surgery consulted. Admitted for further monitoring. CT abd/pelvis: There is evidence of prior partial sigmoid resection. Intraluminal hyperdensity at this level probably reflects active bleeding. Surgical consultation recommended. Diverticulosis without evidence of acute diverticulitis. No free fluid. No abscess. No free air. Surgery recommended watchful waiting since this was a diverticular bleed and would likely resolve w/o intervention. He did pass bright red blood per rectum several more times then no further episodes except on the morning of d/c there was a small amount of BRB on a formed stool. He denied CP, palpitations, presyncope, SOA. He ambulated in the room w/o symptoms. He was instructed to return to the ED if he starts passing BRB like he had previously experienced or if he develops presyncopal symptoms or CP/palpitations. F/U with PCP in 1-2 weeks. CBC at time of f/u with PCP. Home Meds and New Rx's Prescriptions: New magnesium oxide 400 mg (241.3 mg magnesium) Tablet 400 mg PO BID Qty: 0 RF: 0 Refresh Plus 0.5 % Dropperette 1 ea OU PRN PRNQty: 0 RF: 0 Continued astragalus root 470 mg capsule 470 mg PO DAILY RF: 0 magnesium amino acid chelate 100 mg tablet 200 mg PO HS RF: 0 sildenafil 50 mg tablet 50 mg PO DAILY PRN (Reason: sexual activity) RF: 0 ascorbic acid (vitamin C) 1,000 mg tablet 1 g PO Q6H RF: 0 hawthorn 500 mg capsule PO DAILY RF: 0 Excedrin Extra Strength 250-250-65 mg tablet 2 tab PO .QD Qty: 90 RF: 0 lorazepam 1 mg tablet 1 mg PO QHS PRN (Reason: insomnia/back spasms) Qty: 30 RF: 2 (DME) mucus clearing device Device See Rx Instructions .ROUTE .MEDSUPPLY Qty: 1 RF: 0 albuterol sulfate 90 mcg/actuation HFA aerosol inhaler 2 puff inhalation Q6H PRN (Reason: cough) Qty: 18 RF: 8 rosuvastatin 20 mg tablet 20 mg PO DAILY Qty: 90 RF: 3 losartan 50 mg tablet 50 mg PO DAILY Qty: 90 RF: 3 meclizine 25 mg tablet 25 mg PO TID PRN (Reason: dizziness) Qty: 90 RF: 0 pantoprazole 40 mg tablet,delayed release (DR/EC) 40 mg PO BID Qty: 180 RF: 3 vitamin B complex Capsule 1 cap PO DAILY RF: 0 Dairy Aid 3,000 unit Tablet,Chewable 3,000 unit PO DAILY RF: 0 coenzyme Q10 [Co Q-10] 100 mg Capsule 300 mg PO DAILY RF: 0 lycopene 10 mg Capsule 10 mg PO DAILY RF: 0 cholecalciferol (vitamin D3) [Vitamin D3] 2,000 unit Tablet 2,000 unit PO DAILY RF: 0 calcium citrate 760 mg calcium /3.5 gram Granules 760 mg PO DAILY RF: 0 Probiotic 3 billion cell Capsule 3,000 mmu cells PO DAILY RF: 0 [place] 3-6-9 1,200 mg Capsule 1 cap PO DAILY RF: 0 Discharge Instructions Stand Alone Forms: Nursing Discharge Form Referrals: Umesh Covarrubias DO [Primary Care Provider] - 10/04/21 8:30 am Activity:: Activity as Tolerated Equipment/Supplies:: No Equipment Needed Diet:: resume home med Discharge Orders Discharge Orders: Discharge Order (Routine); Ordered 09/24/21 Ordered By: Gary Porter DS: Summary Time Spent with Patient providing and/or coordinating discharge services: Greater than 30 minutes Status at Discharge Functional status at discharge: independent ambulation Overall status at discharge: patient is back to baseline Mental Status: mental status grossly normal Speech and Movement: speech and movement normal Mood: congruent mood Affect: normal affect Exam Psych Mental Status: mental status grossly normal Speech and Movement: speech and movement normal Mood: congruent mood Affect: normal affect DS: Data Vitals/I&O Vitals and I&O: Vital Signs Temperature 36.4 C L 09/24/21 07:45 Temperature Source Tympanic 09/24/21 07:45 Pulse 84 09/24/21 07:45 Pulse Rhythm Regular 09/24/21 08:44 Pulse 87 09/23/21 09:40 Respiratory Rate 18 09/24/21 07:45 Respiratory Effort Non-Labored 09/24/21 08:44 Respiratory Depth Normal 09/24/21 08:44 Respiratory Pattern Normal 09/24/21 08:44 Blood Pressure 135/71 09/24/21 07:45 Blood Pressure Mean 70 09/23/21 08:00 Blood Pressure Position Supine 09/22/21 15:11 Pulse Oximetry 96 09/24/21 07:45 Oxygen Delivery Method Room Air 09/24/21 07:45 Oxygen Flow Rate 0 09/24/21 07:45 Pain Level 6 09/24/21 10:00 Intake & Output 09/23/21 09/23/21 09/24/21 11:59 23:59 11:59 Intake Total 621.333 / 861.333 240 / 861.333 Balance 621.333 / 861.333 240 / 861.333 Weight 67.3 kg 66.3 kg Intake: IV 621.333 / 621.333 Oral 240 / 240 Other: Urine Color Yellow Urine Appearance Clear Clear Clear Urine Odor None Voiding Methods Toilet Data Completed and Pending Labs on day of discharge: Labs from last 24 hours 09/24/21 09/23/21 06:25 11:50 Hgb 11.2 L 11.3 L Hct 33.8 L 34.3 L PFSH All Active Problems History of partial colectomy (Acute) Diverticulosis of colon with hemorrhage (Acute) History of diverticulitis (Acute) Acute GI bleeding (Acute) Degenerative disc disease (Acute) Chronic sinusitis (Acute) Asthma (Chronic) Maxillary pain (Acute) H/O aortic valve replacement (Acute) Jaw pain (Acute) Chest pain in adult (Acute) Other fatigue (Acute) 04/01/21-sleep clinic, Yesica Hopkins MD Psychophysiologic insomnia (Acute) 04/01/21-sleep clinic, Yesica Hopkins MD Periodic limb movement disorder (Acute) 04/01/21-sleep clinic, Yesica Hopkins MD Insomnia (Chronic) Sleep Clinic. Lorazepam tx Acute dyspnea (Acute) H/O endoscopy (Acute) 11/2020 sinusitis, chronic Obstructive sleep apnea (Chronic ~2017) Moderate-PAP therapy Hip osteoarthritis (Acute) Cough (Acute) per Nikki 02/10/2020 started Breo inhaler 03/02/20 F/U with Dr Jordan, next ov 04/06/20 CKD (chronic kidney disease) (Acute) Hyponatremia (Acute) White coat syndrome with hypertension (Chronic) Tests in the 120s at home Chronic cough (Acute) Chronic pansinusitis (Acute) Headache (Acute) Depressive disorder (Acute) Iron deficiency anemia (Acute) Diverticulitis (Chronic) GERD (gastroesophageal reflux disease) (Chronic) Diverticular disease of colon (Acute) Prostate cancer (Chronic) Aortic valve disorder (Acute) Cerebrovascular disease (Acute) Malaise and fatigue (Acute) Dizziness and giddiness (Acute) Peripheral vascular disease (Chronic) Hypercholesterolemia (Acute) HTN (hypertension) (Chronic) Sialoadenitis (Acute 05/29/14) Medical History History of pyloric stenosis as a child Surgical History H/O aortic valve replacement H/O hemorrhoidectomy H/O shoulder surgery History of colon resection History of hernia repair History of tonsillectomy Family History Father Substance abuse Tuberculosis Mother Breast cancer Heart disease Sister Cancer Heart disease Hypertension Social History Smoking/Tobacco Use Status: Former Tobacco Use Quit Date: 09/07/1964 Pack- years: 42 Tobacco: How many years used: 14 Smoking risk assessment performed?: Yes Alcohol Intake: former Drug use: Never Substance use type: does not use Adopted: No Caregiver/Support person: No Foster care: No Household members: spouse Housing: house Number of Children: 1 Do you need help understanding health information?: Never 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
--- NOTE | 2021-09-24 17:29 | CHAPLAIN ---
Gustabo was up in the chair when I visited. He shared some personal history, telling me about how he bought his property in [place] in the 60s when he was living in [place]. He is to his second , the best woman I've ever met, and they moved to their [place], [place] home permanently after the pandemic started. 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 Gustabo was raised in the Taoist Caodaism, but does not support the Taoist Caodaism as an organized oriental orthodox, or any other organized oriental orthodox. He converted to Yazidi for his first and agrees with the Alevism philosophy and is not a practicing Anabaptist. Gustabo explained that he has a relationship with God and he doesn't need to be involved in a lalitha community to maintain that relationship. He was discharged early this afternoon.
== END 2021-09-24 12:16 | disposition home or self-care (01) | DRG 379 ==
LOC: ER 14:01 → ICU 14:44 → MS 09-23 16:00
PROVIDERS: Admitting Provider Family Medicine; Emergency Provider Physician Assistant; PCP Family Medicine; Visit Provider Family Medicine
DX: K57.31 Diverticulosis of large intestine without perforation or abscess with bleeding (principal); E78.00 Pure hypercholesterolemia, unspecified; I73.9 Peripheral vascular disease, unspecified; I67.9 Cerebrovascular disease, unspecified; Z95.2 Presence of prosthetic heart valve; I25.10 Atherosclerotic heart disease of native coronary artery without angina pectoris; N18.9 Chronic kidney disease, unspecified; I12.9 Hypertensive chronic kidney disease with stage 1 through stage 4 chronic kidney disease, or unspecified chronic kidney disease; Z90.49 Acquired absence of other specified parts of digestive tract; Z98.0 Intestinal bypass and anastomosis status; F51.04 Psychophysiologic insomnia; G47.61 Periodic limb movement disorder; G47.33 Obstructive sleep apnea (adult) (pediatric); F32.A Depression, unspecified; D50.9 Iron deficiency anemia, unspecified; K21.9 Gastro-esophageal reflux disease without esophagitis; J45.50 Severe persistent asthma, uncomplicated
CPT/HCPCS: 36415; 80048; 80053; 83690; 86850; 86900; 86901; 87635; 96360; 99222; 99232; 99291; 74177; 81003; 83735; 85014; 85018; 85025; 85610; 99223; 99239; J3490

== ENCOUNTER 2021-10-08 18:34 | Emergency (ER) | payer MEDICARE, OTHER, SELFPAY ==
[2021-10-08] VITALS (27 sets, daily range): BP systolic 115–150; BP diastolic 56–86; PULSE 70–105; RESP 13–26; TEMP 36.8; O2SAT 97–100
--- NOTE | 2021-10-08 18:30 | RT.EKG_ITS ---
APPROVED REPORT Exam: Resting ECG Reason for Exam: weakness Patient Location: E HR:90 bpm ECG Measurements Heart Rate 90 AXIS NE 182 P 67 QRSd 84 QRS 55 QT 351 T 73 QTc 429 Conclusion Sinus rhythm...normal P axis, V-rate 60- 99 Probable left atrial enlargement...P >50mS, <-0.10mV V1
--- NOTE | 2021-10-08 19:17 | ED.GENADUL_ITS ---
Discharge Plan Disposition Patient Disposition: HOME Condition: Good Discharge Details Clinical Impression: Weakness, Acute dehydration, Acute kidney injury Primary Care Provider: Umesh Covarrubias ED Provider: Kar Shetty Home Meds and New Rx's Prescriptions: Continued sildenafil 50 mg tablet 50 mg PO DAILY PRN (Reason: sexual activity) RF: 0 hawthorn 500 mg capsule PO DAILY RF: 0 psyllium Packet 1 packet PO TID RF: 0 lorazepam 1 mg tablet 1 mg PO QHS PRN (Reason: insomnia/back spasms) Qty: 30 RF: 2 (DME) mucus clearing device Device See Rx Instructions .ROUTE .MEDSUPPLY Qty: 1 RF: 0 albuterol sulfate 90 mcg/actuation HFA aerosol inhaler 2 puff inhalation Q6H PRN (Reason: cough) Qty: 18 RF: 8 rosuvastatin 20 mg tablet 20 mg PO DAILY Qty: 90 RF: 3 losartan 50 mg tablet 50 mg PO DAILY Qty: 90 RF: 3 meclizine 25 mg tablet 25 mg PO TID PRN (Reason: dizziness) Qty: 90 RF: 0 pantoprazole 40 mg tablet,delayed release (DR/EC) 40 mg PO BID Qty: 180 RF: 3 vitamin B complex Capsule 1 cap PO DAILY RF: 0 Dairy Aid 3,000 unit Tablet,Chewable 3,000 unit PO DAILY RF: 0 coenzyme Q10 [Co Q-10] 100 mg Capsule 300 mg PO DAILY RF: 0 lycopene 10 mg Capsule 10 mg PO DAILY RF: 0 cholecalciferol (vitamin D3) [Vitamin D3] 2,000 unit Tablet 2,000 unit PO DAILY RF: 0 calcium citrate 760 mg calcium /3.5 gram Granules 760 mg PO DAILY RF: 0 Probiotic 3 billion cell Capsule 3,000 mmu cells PO DAILY RF: 0 [place] 3-6-9 1,200 mg Capsule 1 cap PO DAILY RF: 0 magnesium oxide 400 mg (241.3 mg magnesium) Tablet 400 mg PO BID Qty: 0 RF: 0 Refresh Plus 0.5 % Dropperette 1 ea OU PRN PRNQty: 0 RF: 0 Discharge Instructions Instructions: Dehydration (ED), Weakness (ED) Additional Instructions: At this time your work-up is reassuring, but you are definitely suffering from mild dehydration. We did get repeat labs in your heart shows no signs of significant heart attack or cardiac strain, and your kidney function has improved after the rehydration fluids. Please continue drinking plenty of fluids at home, 10 to 12 cups of water or Gatorade per day. If you notice any worsening of your symptoms, or any new symptoms such as vomiting, diarrhea, fever, chills, shortness of breath, chest pain, numbness, weakness, or fainting , please return immediately to the emergency department for reevaluation. Please follow up with your primary care provider as soon as possible for reassessment and reevaluation. As always, it was a pleasure participating in your medical care today. Referrals: Umesh Covarrubisa DO [Primary Care Provider] - Discharge Data Discharge Date/Time-TO BE ENTERED AT DEPARTURE: 10/08/21 23:29 Medical Decision Making <Valentino Almodovar MD - Last Filed: 10/09/21 22:52> 81-year-old male with multiple medical problems including PMH of diverticulitis / bowel resection, recent diverticular bleed requiring hospitalization, CAD, PAD, CVA, HTN, prostate cancer, anemia, CKD, here with generalized weakness and fatigue that has progressed over the past 2-week discharge from the hospital after being treated for diverticular hemorrhage. Screening EKG was reviewed interpreted by me: Please report, nondiagnostic, no STEMI. Consider ACS and atypical presentation. I will check troponin. Patient did have significant drop in his hemoglobin with his diverticular bleed from baseline 15?16-11. He seems to have stabilized at 11. I am concerned that some of his symptoms may be related to relative anemia. Consider recurrent bleeding and worsening anemia. I will recheck hemoglobin. Patient does have history of chronic kidney disease. He does appear hypovolemic on exam consider acute kidney injury. I will check creatinine. Consider also electrolyte abnormalities. I will give light 250mL IVF bolus. <Kar Shetty DO - Last Filed: 10/08/21 23:00> Patient was signed out to me by my colleague Dr. Valentino Almodovar. Please refer to his HPI, physical exam, assessment and plan. At time of signout we are awaiting repeat troponin and repeat labs after rehydration. Repeat labs demonstrate improving kidney function, and a consistently normal repeat troponin. Patient feels great. He states that even if the labs are good or bad I am going home tonight regardless. Thankfully with a notable improvement of his labs, and the negative troponin I think this is very reasonable plan. Recommend continued hydration at home. Discussed concerning red flags which to return. Diagnosis dehydration. I have extensively reviewed the treatment plan and discharge instructions with the patient. I have addressed all patient concerns at this time. The patient was made aware of what symptoms to monitor for that would warrant a return to the emergency department. Discussed the plan with the patient, they demonstrate verbal understanding and agreement with our assessment and plan at this time. The documentation in this chart was dictated using [employer] dictation software. Please excuse any dictation errors. HPI <Valentino Almodovar MD - Last Filed: 10/09/21 22:52> General Mode of arrival: ambulatory . Date/Time Provider Initiated Documentation: 10/08/21 18:37 . Limitations to Documentation: no limitations . Information obtained by: patient . HPI Narrative: 81-year-old male with multiple medical problems including recent diverticular hemorrhage and hospitalization approximately 2 weeks ago, returns today generally not feeling well. Patient notes when he left the hospital he was feeling better and notes that slow progression since then. He notes he has no energy, severe generalized weakness. No modifiers. Patient notes he is eating but has had abnormal bowel movements. He states that he has had no recurrent bleeding. He had abnormal bowel movements with initially loose stool and then more constipated recently. No associated chest pain, shortness of breath, fever or change in chronic cough. Related Data Home Medications Medication Instructions Recorded Confirmed Dairy Aid 3,000 unit PO DAILY 09/03/19 10/08/21 [place] 3-6-9 1 cap PO DAILY 09/03/19 10/08/21 Probiotic 3,000 mmu cells PO DAILY 09/03/19 10/08/21 calcium citrate 760 mg PO DAILY 09/03/19 10/08/21 cholecalciferol (vitamin D3) 2,000 unit PO DAILY 09/03/19 10/08/21 [Vitamin D3] coenzyme Q10 [Co Q-10] 300 mg PO DAILY 09/03/19 10/08/21 lycopene 10 mg PO DAILY 09/03/19 10/08/21 vitamin B complex 1 cap PO DAILY 09/03/19 10/08/21 mucus clearing device #1 each 03/05/20 10/01/21 albuterol sulfate 90 mcg/actuation 2 puff INHALATION Q6H PRN #18 g 10/16/20 10/08/21 aerosol inhaler losartan 50 mg tablet 50 mg PO DAILY #90 tab 12/10/20 10/08/21 rosuvastatin 20 mg tablet 20 mg PO DAILY #90 tab 12/10/20 10/08/21 meclizine 25 mg tablet 25 mg PO TID PRN #90 tab 12/27/20 10/08/21 hawthorn 500 mg capsule mg PO DAILY cap 04/26/21 10/01/21 sildenafil 50 mg tablet 50 mg PO DAILY PRN tab 04/26/21 10/08/21 pantoprazole 40 mg tablet,delayed 40 mg PO BID #180 tab 05/30/21 10/08/21 release lorazepam 1 mg tablet 1 mg PO QHS PRN #30 tab 07/30/21 10/08/21 Refresh Plus 1 ea OU PRN PRN #0 ea 09/24/21 10/08/21 magnesium oxide 400 mg PO BID #0 tab 09/24/21 10/08/21 psyllium 1 packet PO TID 10/01/21 10/08/21 Previous Rx's Medication Instructions Recorded albuterol sulfate 90 mcg/actuation 2 puff INHALATION Q6H PRN #18 g 10/16/20 aerosol inhaler losartan 50 mg tablet 50 mg PO DAILY #90 tab 12/10/20 rosuvastatin 20 mg tablet 20 mg PO DAILY #90 tab 12/10/20 meclizine 25 mg tablet 25 mg PO TID PRN #90 tab 12/27/20 pantoprazole 40 mg tablet,delayed 40 mg PO BID #180 tab 05/30/21 release lorazepam 1 mg tablet 1 mg PO QHS PRN #30 tab 07/30/21 Refresh Plus 1 ea OU PRN PRN #0 ea 09/24/21 magnesium oxide 400 mg PO BID #0 tab 09/24/21 Allergies Allergy/AdvReac Type Severity Reaction Status Date / Time sulfamethoxazole Allergy turns red Verified 10/08/21 18:45 [From Bactrim] trimethoprim [From Bactrim] Allergy turns red Verified 10/08/21 18:45 ropinirole AdvReac Severe insomina, Verified 10/08/21 18:45 weakness, intense fatigue amoxicillin [Amoxicillin] AdvReac Mild Skin Rash Verified 10/08/21 18:45 Penicillins AdvReac Unknown as a kid Verified 10/08/21 18:45 General Stated Complaint: GenMedical ANIBAL: 3 Review of Systems <Valentino Almodovar MD - Last Filed: 10/09/21 22:52> All systems reviewed & are unremarkable except as noted in HPI and below Constitutional Constitutional: Reports fatigue, Denies fever(s), Reports lethargy and Reports weakness Cardiovascular Cardiovascular: Denies chest pain and Denies dyspnea Respiratory Respiratory: Denies dyspnea Gastrointestinal Gastrointestinal: Reports as per HPI and Denies abdominal pain Neurologic Neurologic: Reports weakness Endocrine Endocrine: Reports fatigue PFSH <Valentino Almodovar MD - Last Filed: 10/09/21 22:52> All Active Problems (Updated 10/08/21 @ 22:52 by Kar Shetty DO) Weakness (Acute) Acute dehydration (Acute) Acute kidney injury (Acute) History of partial colectomy (Acute) History of diverticulitis (Acute) Degenerative disc disease (Acute) Chronic sinusitis (Acute) Asthma (Chronic) Maxillary pain (Acute) H/O aortic valve replacement (Acute) Jaw pain (Acute) Chest pain in adult (Acute) Other fatigue (Acute) 04/01/21-sleep clinic, Yesica Hopkins MD Psychophysiologic insomnia (Acute) 04/01/21-sleep clinic, Yesica Hopkins MD Periodic limb movement disorder (Acute) 04/01/21-sleep clinic, Yesica Hopkins MD Insomnia (Chronic) Sleep Clinic. Lorazepam tx Acute dyspnea (Acute) H/O endoscopy (Acute) 11/2020 sinusitis, chronic Obstructive sleep apnea (Chronic ~2017) Moderate-PAP therapy Hip osteoarthritis (Acute) Cough (Acute) per Nikki 02/10/2020 started Breo inhaler 03/02/20 F/U with Dr Jordan, next ov 04/06/20 CKD (chronic kidney disease) (Acute) Hyponatremia (Acute) White coat syndrome with hypertension (Chronic) Tests in the 120s at home Chronic cough (Acute) Chronic pansinusitis (Acute) Headache (Acute) Depressive disorder (Acute) Iron deficiency anemia (Acute) Diverticulitis (Chronic) GERD (gastroesophageal reflux disease) (Chronic) Diverticular disease of colon (Acute) Prostate cancer (Chronic) Aortic valve disorder (Acute) Cerebrovascular disease (Acute) Malaise and fatigue (Acute) Dizziness and giddiness (Acute) Peripheral vascular disease (Chronic) Hypercholesterolemia (Acute) HTN (hypertension) (Chronic) Sialoadenitis (Acute 05/29/14) Medical History History of pyloric stenosis as a child Surgical History H/O aortic valve replacement H/O hemorrhoidectomy H/O shoulder surgery History of colon resection History of hernia repair History of tonsillectomy Family History Father Substance abuse Tuberculosis Mother Breast cancer Heart disease Sister Cancer Heart disease Hypertension Social History Smoking/Tobacco Use Status: Former Tobacco Use Quit Date: 09/07/1964 Pack- years: 42 Tobacco: How many years used: 14 Smoking risk assessment performed?: Yes Alcohol Intake: former Drug use: Never Substance use type: does not use Adopted: No Caregiver/Support person: No Foster care: No Household members: spouse Housing: house Number of Children: 1 Do you need help understanding health information?: Never 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 Sexually active: Yes Do you think of yourself as: straight/heterosexual Current gender identity: male What is your relationship status?: Panel score (0-1 are the most socially isolated patients): 1 Seatbelt use: always Drive intox or ride w/intox haulpak driver: No Working smoke detector in home: Yes Carbon monox detector in home: Yes Do you feel safe at home: Yes Do you feel safe in your relationship?: Yes Additional Social history: 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 Exam <Valentino Almodovar MD - Last Filed: 10/09/21 22:52> Const General: cooperative and no acute distress HENMT Face and sinus: dry mucous membranes Eyes Conjunctivae: normal conjunctivae Sclera: normal sclerae Neck Neck: trachea midline and supple Resp Auscultation: clear to auscultation bilaterally, no rales, no rhonchi and no wheezes Cardio Rate: regular rate and not tachycardic Rhythm: regular rhythm GI Palpation: soft, not firm, no guarding, no masses, not rigid and nontender Skin General skin exam: no rashes or lesions noted Neuro General: patient alert, patient awake, patient oriented x3 and tone normal Extrem General: no edema Psych Appearance: grossly normal Mental Status: mental status grossly normal Course <Valentino Almodovar MD - Last Filed: 10/09/21 22:52> Vital Signs Vital signs: Vital Signs Temperature 36.8 C 10/08/21 18:39 Pulse 92 H 10/08/21 18:39 Respiratory Rate 18 10/08/21 18:39 Blood Pressure 148/70 H 10/08/21 18:39 Pulse Oximetry 100 10/08/21 18:39 Temperature 36.8 C 10/08/21 18:39 Temperature Source Skin 10/08/21 18:39 Pulse 88 10/08/21 19:01 Pulse 86 10/08/21 19:01 Respiratory Rate 16 10/08/21 19:01 Respiratory Effort 10/08/21 18:39 Blood Pressure 123/62 10/08/21 19:01 Blood Pressure Mean 77 10/08/21 19:01 Blood Pressure Position Sitting 10/08/21 18:39 Pulse Oximetry 97 10/08/21 19:01 Pain Level 0 10/08/21 18:39 Sign Out <Valentino Almodovar MD - Last Filed: 10/09/21 22:52> Sign Out Data: Sign Out Comment: Foolow-up labs and reassess patient after 250ml IVF bolus. Last updated by Valentino Almodovar MD at 10/08/21 19:46
[2021-10-08 19:29] LABS: Abs Immature Grans 0.03 10^3/uL (0.0-0.06); Absolute Basophil Count 0.04 10^3/uL (0.0-0.2); Absolute Eosinophil Count 0.29 10^3/uL (0.0-0.7); Absolute Lymphocyte Count 2.58 10^3/uL (1.2-3.4); Absolute Monocyte Count 0.79 10^3/uL (0.1-0.8); Absolute Neutrophil Count 6.01 10^3/uL (1.2-6.7); Basophils % 0.4; HCT 38.8 % (40.0-50.0); HGB 12.5 g/dL (13.5-17.5); Immature Grans % 0.3; Lymphocytes % 26.5; MCH 29.4 pg (27.0-33.0); MCHC 32.2 % (32.0-36.0); MCV 91.3 fL (80-95); MPV 10.3 fL (8.0-11.0); Monocytes % 8.1; Neutrophils % 61.7; Nucleated RBC 0 %; Platelet Count 218 10^3/uL (130-400); RBC 4.25 10^6/uL (4.36-5.78); RDW 13.8 % (11.8-14.1); RDW-SD 46.3 fL; WBC 9.74 10^3/uL (4.4-10.8)
[2021-10-08] MEDS: Normal Saline 250 ML 500 ML IV ×2 (19:31→20:15)
[2021-10-08 19:44] LABS: ALT 26 U/L (16-63); AST 20 U/L (15-37); Albumin 3.6 g/dL (3.4-5.0); Alkaline Phosphatase 63 U/L (46-116); Anion Gap 6.9 mmol/L (3-11); BUN 28 mg/dL (7-18); Bilirubin, Total 0.3 mg/dL (0.2-1.0); CO2 27.1 mmol/L (21.0-32.0); CREATININE 2.1 mg/dL (0.70-1.30); Chloride 99 mmol/L (98-107); Estimated GFR 30.31 (mL/min/1.73m2); Glucose 137 mg/dL (74-106); Lipase 119 U/L (73-393); Sodium 133 mmol/L (136-145); Total Protein 6.7 g/dL (6.4-8.2); Troponin I 52 ng/L (<or=60)
[2021-10-08 21:44] LABS: Anion Gap 7.2 mmol/L (3-11); BUN 26 mg/dL (7-18); CO2 26.8 mmol/L (21.0-32.0); CREATININE 1.9 mg/dL (0.70-1.30); Calcium 8.6 mg/dL (8.5-10.1); Chloride 100 mmol/L (98-107); Estimated GFR 34.02 (mL/min/1.73m2); Glucose 109 mg/dL (74-106); Potassium 3.9 mmol/L (3.5-5.1); Sodium 134 mmol/L (136-145)
[2021-10-08 22:38] LABS: Troponin I 50 ng/L (<or=60)
== END 2021-10-08 23:29 | disposition home or self-care (01) ==
PROVIDERS: Student in an Organized Health Care Education/Training Program; Emergency Provider Student in an Organized Health Care Education/Training Program; PCP Family Medicine
DX: R53.1 Weakness (principal); E86.0 Dehydration; N17.9 Acute kidney failure, unspecified; I12.9 Hypertensive chronic kidney disease with stage 1 through stage 4 chronic kidney disease, or unspecified chronic kidney disease; N18.9 Chronic kidney disease, unspecified
CPT/HCPCS: 36415; 80048; 80053; 83690; 93005; 96360; 99284; 84484; 85025; 93010; 99283

== ENCOUNTER 2021-10-21 18:34 | Outpatient (REF) | payer MEDICARE, OTHER, SELFPAY ==
[2021-10-22 23:01] LABS: Campylobacter PCR Negative (Negative); Salmonella PCR Negative (Negative); Shiga Toxin PCR Negative (Negative); Shigella/Enteroinvasive Ecoli Negative (Negative)
== END 2021-10-21 18:35 | disposition home or self-care (01) ==
LOC: NCHCN 18:34
PROVIDERS: Internal Medicine Gastroenterology; PCP Family Medicine; Visit Provider Family Medicine
DX: R19.7 Diarrhea, unspecified (principal)
CPT/HCPCS: 87329; 87493; 87505; 83630

== ENCOUNTER 2021-10-23 02:01 | Outpatient (CLI) | payer MEDICARE, OTHER, SELFPAY ==
--- NOTE | 2021-10-23 10:30 | DI.US_ITS ---
APPROVED REPORT EXAM: Comprehensive 2D, Doppler, and color-flow Echocardiogram Patient Location: Out-Patient Provisioning Specialist: Nery Murray RDCS (AE) Indications: Bioprosthetic aortic valve, worsening weakness Other Information Study Quality: Adequate Conclusion Normal left ventricular wall thickness and chamber size. Estimated ejection fraction is 55%. There are no segmental wall motion abnormalities Normal right ventricular size and systolic function Both atria are normal in size There is a bioprosthetic aortic valve. Peak gradient is 20, mean is 12 mmHg. There is trace to mild aortic regurgitation Mitral annular calcification. Mild mitral regurgitation Normal tricuspid valve with trace regurgitation. Estimated right ventricular systolic pressure is no rmal at 26 mmHg Wall motion Left Ventricle The left ventricle is normal size. The left ventricular systolic function is normal. The left ventric ular ejection fraction is within the normal range. There is normal left ventricular wall thickness. P aradoxical septal motion consistent with post-operative state. There is no ventricular septal defect visualized. LVEF is 55%. Right Ventricle The right ventricle is normal size. The right ventricular systolic function is normal. The RVSP is 26 .3 mmHg. Atria The left atrium size is normal. The right atrium size is normal. The interatrial septum is intact wit h no evidence for an atrial septal defect. Aortic Valve There is no aortic valvular stenosis. Trace to mild aortic regurgitation. Bioprosthetic aortic valve is present. Mitral Valve Moderate mitral annular calcification. No evidence of mitral valve stenosis. Mild mitral regurgitatio n. Tricuspid Valve The tricuspid valve is normal in structure. There is no tricuspid valve stenosis. Trace tricuspid reg urgitation. Pulmonic Valve The pulmonary valve is normal in structure. There is no pulmonic valvular stenosis. Trace to mild pul venkat regurgitation. Great Vessels The aortic root is normal in size. The ascending aorta is normal in size. Aortic arch is not well vis ualized. IVC is normal in size and collapses >50% with inspiration. Pericardium There is no pericardial effusion. 2D Dimensions IVSD d PLAX 0.93 cm M: 0.6-1.2 LV Vol A2C d MOD 77.4 mL LVPW d PLAX 0.85 cm M: 0.6 - 1.2 LV Vol A4C d MOD 82.7 mL LVID d PLAX 4.01 cm M: 4.2 - 5.8 LA vol/ BSA A2C s A-L 29.2 mL/m2 LVDs 2.85 cm M: 2.5 - 4.0 LA vol/ BSA A4C s A-L 21.8 mL/m2 Ao Root d 2.78 cm M: 3.1 - 3.7 LA Vol/ BSA Biplane s A-L 25.6 mL/m2 RA Area A4C 12.69 cm2 LA Area A4C s MOD 15.06 cm2 RA Vol/ BSA A4C s A-L 17.9 mL/m2 LA Area A2C s MOD 17.67 cm2 Ao Asc Diam d 3.45 cm M: 2.6 - 3.4 LV EF A4C MOD 55.6 % LV EF Teichholz 54.9 % LV EF A2C MOD 50.6 % LVEF (Bowden's) 53.15 % M: 52 - 72 LV EF Biplane MOD 53.1 % LV Volume 62.77 mL M: 62 - 150 SV 42.63 mL LV Volume Index 35.46 mL/m2 M: 34 - 74 SV Index 24.09 mL/m2 LV Vol Biplane MOD 80.2 mL FS 28.05 % M-Mode TAPSE 1.39 cm (M/F) >1.7 LV Diastology MV E' medial 0.066 (>0.07 m/s) E/A Ratio 0.9 LV E/e MED 12.00 (<14) MV E Vmax 0.79 (0.4-1.3 m/s) MV E' lateral 0.106 (>0.1 m/s) MV A Vmax 0.90 (0.4-1.3 m/s) LV E/e LAT 7.45 (<14) MV E/A Ratio 0.85 MV E/E' medial 12.04 MV E/E' lateral 7.47 Aortic Valve LVOT Area 2.91 cm2 AoV Area Vmax 1.51 cm2 LVOT Vmax 1.15 m/s AoV Area/ BSA (Vmax) 0.85 cm2/m2 LVOT Mean Michael. 0.75 m/s MP Mean Michael. 1.36 cm2 LVOT Peak Grad 5.3 mmHg MP Mean Michael. Index 0.77 cm2/m2 LVOT Mean Grad 2.6 mmHg AR DT 2529 msec LVOT VTI 0.224 m AR PHT 733 msec LVOT Diam s 1.90 cm AoV Vmax 2.22 m/s Velocity Ratio 0.51 AoV Mean Michael. 1.61 m/s AoV Peak Grad 19.6 mmHg LVOT SV 64.99 mL AoV Mean Grad 11.7 mmHg AoV VTI 0.443 m AoV Area VTI 1.47 cm2 AoV Area/ BSA (VTI) 0.83 cm/m2 Mitral Valve MV DT 304 (160-240 msec) MV PHT 88 msec MV Area PHT 2.50 cm2 MV VTI 0.345 m MV VTI Annulus 0.342 m MV Area VTI 1.87 (4.0-6.0 cm2) Pulmonary Valve PV Vmax 0.88 (0.5-1.5 m/s) RVOT Peak Gr. 1.18 mmHg PV Peak Grad 3.1 mmHg RVOT Mean Gr. 0.60 mmHg PV Mean Grad 1.7 mmHg RVOT VTI 0.115 m PV VTI 0.162 m RVOT Vmax 0.54 m/s Tricuspid Valve TR Peak Grad 23.2 mmHg TR Vmax 2.41 m/s RA Pressure 3.00 mmHg RVSP (TR) 26.3 mmHg
== END 2021-10-23 02:21 ==
PROVIDERS: PCP Family Medicine; Visit Provider Family Medicine
DX: I35.9 Nonrheumatic aortic valve disorder, unspecified (principal); Z95.2 Presence of prosthetic heart valve; R53.1 Weakness; I34.0 Nonrheumatic mitral (valve) insufficiency
CPT/HCPCS: 93306

== ENCOUNTER 2021-10-25 10:38 | Outpatient (CLI) | payer MEDICARE, OTHER, SELFPAY ==
--- NOTE | 2021-10-25 10:30 | RT.EKG_ITS ---
APPROVED REPORT Exam: Resting ECG Reason for Exam: New patient workup Patient Location: O HR:85 bpm ECG Measurements Heart Rate 85 AXIS NM 189 P 84 QRSd 75 QRS 71 QT 347 T 71 QTc 413 Conclusion Sinus rhythm...normal P axis, V-rate 50- 99 Left atrial enlargement...P, P'>60mS, <-0.15mV V1 Otherwise normal
== END 2021-10-25 10:39 | disposition home or self-care (01) ==
LOC: DI.CARD 10:42
PROVIDERS: PCP Family Medicine; Referring Provider Family Medicine; Visit Provider Internal Medicine Cardiovascular Disease
DX: I10 Essential (primary) hypertension (principal); I35.8 Other nonrheumatic aortic valve disorders; R68.84 Jaw pain
CPT/HCPCS: 93010

== ENCOUNTER → 2021-10-25 10:38 | Outpatient (BNVA) | payer MEDICARE, OTHER, SELFPAY | PROVIDERS: PCP Family Medicine; Referring Provider Family Medicine; Visit Provider Internal Medicine Cardiovascular Disease | DX: I10 Essential (primary) hypertension (principal); R68.84 Jaw pain; I35.9 Nonrheumatic aortic valve disorder, unspecified; Z95.2 Presence of prosthetic heart valve | CPT/HCPCS: 93005; 99213 ==

== ENCOUNTER 2021-11-01 02:48 | Outpatient (CLI) | payer MEDICARE, OTHER, SELFPAY ==
--- NOTE | 2021-11-01 07:15 | DI.MRI_ITS ---
Exam(s) MR BRAIN WO EXAM: MR BRAIN WO CLINICAL HISTORY: Persistent, unexplained dizziness,[id number] TECHNIQUE: Multiplanar multisequence MRI of the brain was performed. COMPARISON: MR MR BRAIN WO from 10/16/2020 FINDINGS: CEREBRAL PARENCHYMA: There are again noted multiple foci of white matter signal abnormality in the Vee supra ventricular white matter regions, quite extensive but exhibiting minimal change when compared to the prior MRI sc an of October 2020 and consistent with a chronic small-vessel white matter ischemic changes. There are no new findings in the cerebellar hemispheres nor within the anette and midbrain and thalami. On DWI there is a tiny focus of increased subcortical signal in the right frontal lobe, similar to pr evious and there is evidence of prior microhemorrhage at this level as seen on SWI susceptibility glenna ghted imaging. However, findings at this level exhibits minimal if any significant change compared t o the October 2020 study, 1 year ago. PITUITARY GLAND: No mass nor parasellar abnormality. No obvious abnormality in the cavernous sinuses. FLOW VOIDS: The expected flow void are noted. No evidence of obvious aneurysm nor obvious vascular ma lformation. PARANASAL SINUSES: The visualized paranasal sinuses appear unremarkable. No obvious finding ORBITS: No obvious findings. IMPRESSION: 1. Compared to the prior MRI scan of the 10/16/2020 there is again noted abundant periventricular whi te matter signal abnormality consistent with chronic small vessel disease, unchanged. 2. Peripheral subcortical right frontal lobe finding with evidence of microhemorrhage on susceptibili ty weighted imaging at this level again noted, also unchanged. Smaller microhemorrhage sequelae also noted slightly more anteriorly in the right frontal lobe. This is also unchanged. 3. Minimal if any significant change when compared to the prior MRI scan of October 2020. DATA REPOSITORY:
== END 2021-11-01 03:08 ==
PROVIDERS: PCP Family Medicine; Visit Provider Family Medicine
DX: R42 Dizziness and giddiness (principal); R90.82 White matter disease, unspecified; I67.89 Other cerebrovascular disease
CPT/HCPCS: 70551

== ENCOUNTER → 2021-12-05 12:42 | Outpatient (BNVA) | payer MEDICARE, OTHER, SELFPAY | PROVIDERS: PCP Family Medicine; Referring Provider Family Medicine; Visit Provider Psychiatry & Neurology Neurology | DX: R42 Dizziness and giddiness (principal); R26.89 Other abnormalities of gait and mobility; I65.22 Occlusion and stenosis of left carotid artery | CPT/HCPCS: 99215 ==

== ENCOUNTER 2021-12-10 14:22 | Emergency (ER) | payer MEDICARE, OTHER, SELFPAY ==
[2021-12-10 14:53] VITALS: BP 122/71; PULSE 82; TEMP 36.6; O2SAT 98
--- NOTE | 2021-12-10 15:12 | NUR.NOTE ---
pt arrives feeling like he is having an attaack of diverticulitis, feels the same as he did 4 years ago when this happened before. hehasbeen suffering with diverticulosis for many years and has had some of his bowel removed. this past week or two he has been feeling worse. he states he has not had a normal BM in a month. he describes it as small pelets and always feels like he needs to go more. he is bloated and feels awful. he is concerned about his umbilical hernia because it continues to grow. he states that in the past when he has felt this way, cipro is the only thing that has worked. LISBETH
[2021-12-10] MEDS: Mylanta Suspension 30 ML CUP PO (15:49)
[2021-12-10] MEDS: Lactated Ringers 1,000 ML 125 ML IV (15:50)
[2021-12-10 15:55] LABS: Abs Immature Grans 0.05 10^3/uL (0.0-0.06); Absolute Eosinophil Count 0.86 10^3/uL (0.0-0.7); Absolute Lymphocyte Count 2.41 10^3/uL (1.2-3.4); Absolute Monocyte Count 0.79 10^3/uL (0.1-0.8); Basophils % 0.3; Eosinophils % 7.5; HCT 38.6 % (40.0-50.0); HGB 12.2 g/dL (13.5-17.5); Immature Grans % 0.4; Lymphocytes % 21.1; MCH 25.6 pg (27.0-33.0); MCHC 31.6 % (32.0-36.0); MCV 81.1 fL (80-95); MPV 10.7 fL (8.0-11.0); Monocytes % 6.9; Neutrophils % 63.8; Nucleated RBC 0 %; Platelet Count 207 10^3/uL (130-400); RBC 4.76 10^6/uL (4.36-5.78); RDW-SD 49.5 fL; WBC 11.43 10^3/uL (4.4-10.8)
[2021-12-10 16:05] LABS: ALT 32 U/L (16-63); AST 19 U/L (15-37); Albumin 3.5 g/dL (3.4-5.0); Alkaline Phosphatase 46 U/L (46-116); Anion Gap 5.9 mmol/L (3-11); BUN 25 mg/dL (7-18); Bilirubin, Total 0.4 mg/dL (0.2-1.0); CO2 27.1 mmol/L (21.0-32.0); CREATININE 1.8 mg/dL (0.70-1.30); Calcium 9.9 mg/dL (8.5-10.1); Chloride 101 mmol/L (98-107); Estimated GFR 36.21 (mL/min/1.73m2); Glucose 98 mg/dL (74-106); Lipase 106 U/L (73-393); Magnesium 2.1 mg/dL (1.8-2.4); Potassium 4.3 mmol/L (3.5-5.1); Sodium 134 mmol/L (136-145); Total Protein 6.2 g/dL (6.4-8.2)
[2021-12-10 16:13] LABS: TSH (W/Ref FT4) 0.37 uIU/mL (0.36-3.74)
--- NOTE | 2021-12-10 16:15 | DI.CT_ITS ---
Exam(s) CT ABDOMEN PELVIS W EXAM: CT ABDOMEN PELVIS W CLINICAL HISTORY: pain, bloating, constipation TECHNIQUE: Imaging Protocol: Axial computed tomography images with coronal and sagittal reformatted images were created and reviewed CONTRAST MATERIAL: Intravenous: Omnipaque 350 Contrast volume:100 mL Oral: No COMPARISON: CT CT ABDOMEN PELVIS W from 09/22/2021 FINDINGS: ABDOMEN: Lung Bases: Small hiatal hernia. Liver: Normal density. No measurable mass. Portal, Superior Mesenteric, and Splenic Veins: Unremarkable. Gallbladder and Biliary Tract: No radiodense calculus or dilation. Pancreas: Normal density, no abnormal calcifications or inflammatory process. Spleen: Normal. Adrenals: No masses seen. Kidneys: Normal size, contour and axis. No radiodense stones or obstructive uropathy. No masses seen. Abdominal Aorta: Abdominal portion non-dilated. Atherosclerosis. Bowel: There are diverticula throughout the colon. There is a segment in the mid to distal sigmoid c olon with adjacent pericolonic inflammation. Findings are suspicious for mild acute diverticulitis. No abscess or free air. No evidence of appendicitis. Postsurgical changes are seen at the rectosig moid junction. Peritoneal Cavity: No ascites, collection or mesenteric inflammatory response. No free air. Lymph Nodes: Within normal limits. Bones: Within normal limits for the patient's age. Soft Tissues: There is a small fat containing umbilical hernia. PELVIS: Bladder: There is mild diffuse thickening of the wall of the urinary bladder. This may be due to und erdistention. No definite pericystic inflammatory changes are seen however cystitis cannot be entire ly excluded. Reproductive Organs: There is an enlarged prostate gland. Lymph Nodes: Within normal limits. Bones: Within normal limits for the patient's age. IMPRESSION: 1. Colonic diverticulosis. Question of mild inflammatory changes around a segment of the mid sigmoid colon suspicious for early mild acute diverticulitis. No abscess or free air. 2. Mild to moderate amount of stool in the colon. No evidence of obstruction. 3. Results of this exam have been verbally communicated with provider. RADIATION DOSE DELIVERED: 791.75mGy.cm Total DLP DATA REPOSITORY: All CT scans at this facility are submitted to the National Radiology Data Registry (NRDR) Dose Index Registry (DIR) with the [employer] (ACR). RADIATION OPTIMIZATION: All CT scans at this facility use at least one of these dose optimization te chniques: automated exposure control; mA and/or kV adjustment per patient size (includes targeted exa ms where dose is matched to clinical indication); or iterative reconstruction.
[2021-12-10 16:36] LABS: Absolute Basophil Count 0.03 10^3/uL (0.0-0.2); Absolute Neutrophil Count 7.29 10^3/uL (1.2-6.7)
[2021-12-10] MEDS: Omnipaque 350 MG/ML 100 ML BTL IV (16:47)
[2021-12-10] MEDS: Normal Saline Flush 10 ML SYR IVP (17:02)
[2021-12-10 17:10] VITALS: BP 130/69; PULSE 78; RESP 16; O2SAT 98
--- NOTE | 2021-12-10 17:40 | W.ED.GENAD ---
Discharge Plan Disposition Patient Disposition: HOME Condition: Stable Discharge Details Clinical Impression: Diverticulitis, Constipation Primary Care Provider: Umesh Covarrubias ED Provider: Valentino Almodovar Home Meds and New Rx's Prescriptions: Continued hawthorn 500 mg capsule PO DAILY 0RF Hold Instructions: Home Medication placed on hold at Doctor's office psyllium Packet 1 packet PO TID 0RF Hold Instructions: Home Medication placed on hold at Doctor's office Rx Instructions: takes 6 kim daily lorazepam 1 mg tablet 1 mg PO QHS PRN (Reason: insomnia/back spasms) Qty: 30 2RF aspirin 81 mg capsule 81 mg PO DAILY 0RF burdock root 500 mg capsule PO 0RF Rx Instructions: 3x day wheat/gluten digestive capsules PO 0RF Rx Instructions: tid slippery elm bark 400 mg capsule PO 0RF Rx Instructions: 3x /day aloe vera juice PO 0RF apple cider vinegar PO 0RF Rx Instructions: tid dgl lozenges PO 0RF (DME) mucus clearing device Device See Rx Instructions .ROUTE .MEDSUPPLY Qty: 1 0RF Rx Instructions: BID losartan 50 mg tablet 50 mg PO DAILY Qty: 90 3RF rosuvastatin 20 mg tablet 20 mg PO DAILY Qty: 90 3RF vitamin B complex Capsule 1 cap PO DAILY 0RF coenzyme Q10 [Co Q-10] 100 mg Capsule 300 mg PO DAILY 0RF Hold Instructions: Home Medication placed on hold at Doctor's office lycopene 10 mg Capsule 10 mg PO DAILY 0RF Hold Instructions: Home Medication placed on hold at Doctor's office cholecalciferol (vitamin D3) [Vitamin D3] 2,000 unit Tablet 2,000 unit PO DAILY 0RF Hold Instructions: Home Medication placed on hold at Doctor's office calcium citrate 760 mg calcium /3.5 gram Granules 760 mg PO DAILY 0RF Hold Instructions: Home Medication placed on hold at Doctor's office Probiotic 3 billion cell Capsule 3,000 mmu cells PO DAILY 0RF [place] 3-6-9 1,200 mg Capsule 1 cap PO DAILY 0RF Hold Instructions: Home Medication placed on hold at Doctor's office magnesium oxide 400 mg (241.3 mg magnesium) Tablet 400 mg PO BID Qty: 0 0RF Hold Instructions: Home Medication placed on hold at Doctor's office carboxymethylcellulose sodium [Refresh Plus] 0.5 % Dropperette 1 ea OU PRN PRNQty: 0 0RF No Action amoxicillin-pot clavulanate 875-125 mg tablet 1 tab PO BID Qty: 13 0RF prednisone 20 mg tablet 40 mg PO DAILY Qty: 8 0RF epinephrine [EpiPen] 0.3 mg/0.3 mL auto-injector 0.3 mg IM ONCE PRN (Reason: anaphylaxis) Qty: 1 0RF Rx Instructions: as a single dose; may repeat once Discharge Instructions Instructions: Ciprofloxacin (By mouth), Metronidazole (By mouth), Diverticulitis (ED), Diverticulitis Diet (ED) Additional Instructions: Maintain a clear liquid diet today. You may advance to soft diet tomorrow. Advance slowly thereafter as tolerated. Please follow-up with your vacuum forming machine operator. Please follow-up with your primary care physician. Return to the emergency department immediately for any worsening or new concerning symptoms. Referrals: Umesh Covarrubias DO [Primary Care Provider] - Discharge Data Discharge Date/Time-TO BE ENTERED AT DEPARTURE: 12/10/21 18:02 Medical Decision Making 81-year-old male with history of diverticulosis, here with diffuse abdominal discomfort, bloating and constipation. Patient does have some mild tenderness left abdomen. No peritoneal findings. Consider acute diverticulitis versus bowel obstruction. Patient was given Mylanta and IV fluid. Labs reviewed and mild leukocytosis noted. CT abdomen pelvis to assess for his acute surgical pathology was interpreted by radiology:IMPRESSION: 1. Colonic diverticulosis.? Question of mild inflammatory changes around a segment of the mid sigmoid colon suspicious for early mild acute diverticulitis.? No abscess or free air. 2. Mild to moderate amount of stool in the colon.? No evidence of obstruction.? 3. Results of this exam have been verbally communicated with provider. Reviewed results with the patient. Discussed treatment options and patient provided informed consent for treatment with ciprofloxacin and metronidazole. Patient preferred this treatment regimen as he is tolerated ciprofloxacin in the past. Patient tolerated oral fluids. Patient was given ciprofloxacin and metronidazole and provided go pack and prescription for continued course. He was encouraged to follow-up with his primary care physician and vacuum forming machine operator. HPI General Mode of arrival: ambulatory. Date/Time Provider Initiated Documentation: 12/10/21 14:46. Limitations to Documentation: no limitations. Information obtained by: patient. HPI Narrative: 81-year-old male with history of diverticulosis, presetns with chief complaint of diffuse abdominal pain. Pain is described as a discomfort. He has associated bloating and constipation. Patient notes symptoms have been going on for weeks but worsening past 2 days. Symptoms are now moderate to severe. No modifiers. He notes he has not had a normal bowel movement in months. Patient states that he has small loose bowel movements. He is concerned that he may be constipated. He states he has tried milk of magnesia without improvement. He denies melena or bright red blood per rectum. Related Data Home Medications Medication Instructions Recorded Confirmed calcium citrate 760 mg PO DAILY 09/03/19 12/10/21 cholecalciferol (vitamin D3) 50 2,000 unit PO DAILY 09/03/19 12/10/21 mcg (2,000 unit) tablet (Vitamin D3) coenzyme Q10 100 mg capsule (Co 300 mg PO DAILY 09/03/19 12/10/21 Q-10) fish, borage, flaxseed oils-omega 1 cap PO DAILY 09/03/19 12/10/21 3,6,9 comb no.1 1,200 mg capsule ([place] 3-6-9) lactobacillus combination no.4 3 3,000 mmu cells PO DAILY 09/03/19 12/10/21 billion cell capsule (Probiotic) lycopene 10 mg capsule 10 mg PO DAILY 09/03/19 12/10/21 vitamin B complex 1 cap PO DAILY 09/03/19 12/10/21 mucus clearing device #1 each 03/05/20 12/05/21 hawthorn 500 mg capsule mg PO DAILY cap 04/26/21 12/05/21 lorazepam 1 mg tablet 1 mg PO QHS PRN #30 tab 07/30/21 12/10/21 carboxymethylcellulose sodium 0.5 1 ea OU PRN PRN #0 ea 09/24/21 12/10/21 % eye drops in a dropperette (Refresh Plus) magnesium oxide 400 mg (241.3 mg 400 mg PO BID #0 tab 09/24/21 12/10/21 magnesium) tablet psyllium 1 packet PO TID 10/01/21 12/05/21 losartan 50 mg tablet 50 mg PO DAILY #90 tab 11/22/21 12/10/21 rosuvastatin 20 mg tablet 20 mg PO DAILY #90 tab 11/22/21 12/10/21 aloe vera juice PO 12/03/21 12/05/21 apple cider vinegar PO 12/03/21 12/05/21 burdock root 500 mg capsule mg PO 12/03/21 12/05/21 dgl lozenges PO 12/03/21 12/05/21 slippery elm bark 400 mg capsule mg PO 12/03/21 12/05/21 wheat/gluten digestive capsules PO 12/03/21 12/05/21 aspirin 81 mg capsule 81 mg PO DAILY 12/05/21 12/10/21 amoxicillin 875 mg-potassium 1 tab PO BID #13 tab 12/11/21 clavulanate 125 mg tablet epinephrine 0.3 mg/0.3 mL 0.3 mg (0.3 mL) IM ONCE PRN #1 ea 12/11/21 injection, auto-injector (EpiPen) prednisone 20 mg tablet 40 mg PO DAILY #8 tab 12/11/21 Previous Rx's Medication Instructions Recorded lorazepam 1 mg tablet 1 mg PO QHS PRN #30 tab 07/30/21 carboxymethylcellulose sodium 0.5 1 ea OU PRN PRN #0 ea 09/24/21 % eye drops in a dropperette (Refresh Plus) magnesium oxide 400 mg (241.3 mg 400 mg PO BID #0 tab 09/24/21 magnesium) tablet losartan 50 mg tablet 50 mg PO DAILY #90 tab 11/22/21 rosuvastatin 20 mg tablet 20 mg PO DAILY #90 tab 11/22/21 amoxicillin 875 mg-potassium 1 tab PO BID #13 tab 12/11/21 clavulanate 125 mg tablet epinephrine 0.3 mg/0.3 mL 0.3 mg (0.3 mL) IM ONCE PRN #1 ea 12/11/21 injection, auto-injector (EpiPen) prednisone 20 mg tablet 40 mg PO DAILY #8 tab 12/11/21 Allergies Allergy/AdvReac Type Severity Reaction Status Date / Time metronidazole Allergy Intermediate Skin Rash Unverified 12/11/21 08:04 ciprofloxacin [From Cipro] Allergy Mild Skin Rash Unverified 12/11/21 15:37 sulfamethoxazole Allergy turns red Verified 12/10/21 14:57 [From Bactrim] trimethoprim [From Bactrim] Allergy turns red Verified 12/10/21 14:57 ropinirole AdvReac Severe insomina, Verified 12/10/21 14:57 weakness, intense fatigue amoxicillin [Amoxicillin] AdvReac Mild Skin Rash Verified 12/10/21 14:57 Penicillins AdvReac Unknown as a kid Verified 12/10/21 14:57 General Stated Complaint: Abd Prob ANIBAL: 3 Review of Systems All systems reviewed & are unremarkable except as noted in HPI and below Constitutional Constitutional: Denies fever(s) Gastrointestinal Gastrointestinal: Reports as per HPI PFSH All Active Problems Diverticulitis (Chronic) Constipation (Acute) Allergic reaction due to antibacterial drug (Acute) Lightheadedness (Acute) New daily persistent headache (Acute) Balance disorder (Acute) Tubular adenoma (Acute 11/04/21) Dizziness (Acute) History of diverticulitis (Acute) Degenerative disc disease (Acute) Chronic sinusitis (Acute) Asthma (Chronic) Maxillary pain (Acute) H/O aortic valve replacement (Acute) Jaw pain (Acute) Chest pain in adult (Acute) Other fatigue (Acute) 04/01/21-sleep clinic, Yesica Hopkins MD Psychophysiologic insomnia (Acute) 04/01/21-sleep clinic, Yesica Hopkins MD Periodic limb movement disorder (Acute) 04/01/21-sleep clinic, Yesica Hopkins MD Insomnia (Chronic) Sleep Clinic. Lorazepam tx Acute dyspnea (Acute) H/O endoscopy (Chronic) 11/2020 Sinusitis, chronic 11/04/21 [place] low grade esophageal ulcer, 2 cm Hiatal Hernia Obstructive sleep apnea (Chronic ~2018) Moderate-PAP therapy Hip osteoarthritis (Acute) Cough (Acute) per Nikki 02/10/2020 started Breo inhaler 03/02/20 F/U with Dr Jordan, next ov 04/06/20 CKD (chronic kidney disease) (Acute) Hyponatremia (Acute) White coat syndrome with hypertension (Chronic) Tests in the 120s at home Chronic cough (Acute) Chronic pansinusitis (Acute) Headache (Acute) Depressive disorder (Acute) Iron deficiency anemia (Acute) Diverticulitis (Chronic) GERD (gastroesophageal reflux disease) (Chronic) Diverticular disease of colon (Acute) Prostate cancer (Chronic) Aortic valve disorder (Acute) Cerebrovascular disease (Acute) Malaise and fatigue (Acute) Dizziness and giddiness (Acute) Peripheral vascular disease (Chronic) Hypercholesterolemia (Acute) HTN (hypertension) (Chronic) Sialoadenitis (Acute 05/29/14) Medical History History of pyloric stenosis as a child Surgical History H/O aortic valve replacement H/O colonoscopy (~11/04/21) 11/04/21 Dr Tyler H/O hemorrhoidectomy H/O shoulder surgery History of colon resection History of hernia repair History of tonsillectomy Family History Father Substance abuse Tuberculosis Mother Breast cancer Heart disease Sister Cancer Heart disease Hypertension Social History Smoking/Tobacco Use Status: Former Tobacco Use Quit Date: 09/07/1964 Pack-years: 42 Tobacco: How many years used: 14 Smoking risk assessment performed?: Yes Alcohol Intake: former Drug use: Never Substance use type: does not use Adopted: No Caregiver/Support person: No Foster care: No Household members: spouse Housing: house Number of Children: 1 Do you need help understanding health information?: Never 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 Sexually active: Yes Do you think of yourself as: straight/heterosexual Current gender identity: male What is your relationship status?: Panel score (0-1 are the most socially isolated patients): 1 Seatbelt use: always Drive intox or ride w/intox minibus driver: No Working smoke detector in home: Yes Carbon monox detector in home: Yes Do you feel safe at home: Yes Do you feel safe in your relationship?: Yes Additional Social history: 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 Exam Const General: cooperative, no acute distress and well developed HENMT Mouth: moist mucous membranes Eyes Conjunctivae: normal conjunctivae Sclera: normal sclerae Resp Auscultation: clear to auscultation bilaterally, no rales, no rhonchi and no wheezes Cardio Rate: regular rate and not tachycardic Rhythm: regular rhythm GI Palpation: soft, not firm, no guarding, no masses, not rigid and tender (diffuse) in the LUQ Auscultation: hypoactive bowel sounds Skin General skin exam: no rashes or lesions noted Neuro General: patient alert, patient awake, patient oriented x3 and tone normal Extrem General: no edema Psych Appearance: grossly normal Mental Status: mental status grossly normal Speech and Movement: speech and movement normal Course Vital Signs Vital signs: Vital Signs Temperature 36.6 C 12/10/21 14:53 Pulse 82 12/10/21 14:53 Blood Pressure 122/71 12/10/21 14:53 Pulse Oximetry 98 12/10/21 14:53 Temperature 36.6 C 12/10/21 14:53 Temperature Source Temporal Artery Scan 12/10/21 14:53 Pulse 78 12/10/21 17:10 Respiratory Rate 16 12/10/21 17:10 Respiratory Effort Non-Labored 12/10/21 14:56 Blood Pressure 130/69 12/10/21 17:10 Blood Pressure Position Sitting 12/10/21 14:53 Pulse Oximetry 98 12/10/21 17:10 Oxygen Delivery Method Room Air 12/10/21 14:53 Oxygen Flow Rate 0 12/10/21 14:53 Pain Level 6 12/10/21 14:53 Lab/Test Results Lab/Test Results: Laboratory Tests Range/Units 12/10/21 12/10/21 12/10/21 15:27 15:27 15:27 WBC (4.4-10.8) 10^3/uL 11.43 H RBC (4.36-5.78) 10^6/uL 4.76 Hgb (13.5-17.5) g/dL 12.2 L Hct (40.0-50.0) % 38.6 L MCV (80-95) fL 81.1 MCH (27.0-33.0) pg 25.6 L MCHC (32.0-36.0) % 31.6 L RDW (11.8-14.1) % 17.0 H Plt Count (130-400) 10^3/uL 207 MPV (8.0-11.0) fL 10.7 Immature Gran % 0.4 Neutrophils % 63.8 Lymphocytes % 21.1 Monocytes % 6.9 Eosinophils % 7.5 Basophils % 0.3 Nucleated RBC % % 0 Absolute Neutrophils (1.2-6.7) 10^3/uL 7.29 H Absolute Lymphocytes (1.2-3.4) 10^3/uL 2.41 Absolute Monocytes (0.1-0.8) 10^3/uL 0.79 Absolute Eosinophils (0.0-0.7) 10^3/uL 0.86 H Absolute Basophils (0.0-0.2) 10^3/uL 0.03 Sodium (136-145) mmol/L 134 L Potassium (3.5-5.1) mmol/L 4.3 Chloride (98-107) mmol/L 101 Carbon Dioxide (21.0-32.0) mmol/L 27.1 Anion Gap (3-11) mmol/L 5.9 BUN (7-18) mg/dL 25 H Creatinine (0.70-1.30) mg/dL 1.8 H Estimated GFR/1.73 m2 (mL/min/1.73m2) 36.21 Glucose (74-106) mg/dL 98 Calcium (8.5-10.1) mg/dL 9.9 Magnesium (1.8-2.4) mg/dL 2.1 Total Bilirubin (0.2-1.0) mg/dL 0.4 AST (15-37) U/L 19 ALT (16-63) U/L 32 Alkaline Phosphatase (46-116) U/L 46 Total Protein (6.4-8.2) g/dL 6.2 L Albumin (3.4-5.0) g/dL 3.5 Lipase (73-393) U/L 106 TSH (0.36-3.74) uIU/mL 0.37
[2021-12-10 18:06] VITALS: BP 126/68; PULSE 66; RESP 16; TEMP 36.8; O2SAT 98
== END 2021-12-10 18:02 | disposition home or self-care (01) ==
PROVIDERS: Emergency Provider Student in an Organized Health Care Education/Training Program; PCP Family Medicine
DX: K57.32 Diverticulitis of large intestine without perforation or abscess without bleeding (principal); K29.00 Acute gastritis without bleeding
CPT/HCPCS: 36415; 80053; 83690; 96360; 96361; 99285; 74177; 83735; 84443; 85025; 99284; J3490

== ENCOUNTER 2021-12-11 12:44 | Emergency (ER) | payer MEDICARE, OTHER, SELFPAY ==
[2021-12-11 12:52] VITALS: BP 134/62; PULSE 74; RESP 16; TEMP 36.7; O2SAT 99
[2021-12-11] MEDS: predniSONE 20 MG TAB 60 MG PO (13:15)
[2021-12-11] MEDS: Amoxicillin 875/Clav. 125 TAB PO (13:58)
[2021-12-11 14:02] VITALS: BP 135/67; PULSE 72; RESP 16; O2SAT 99
--- NOTE | 2021-12-11 14:03 | NUR.NOTE ---
pt appears to have less redness and swelling to the face after taking prednisone an hour ago. augmentin was given, will continue to monitor andwatch for reaction. vital signs stable. jm
--- NOTE | 2021-12-11 14:11 | W.ED.GENAD ---
Discharge Plan Disposition Patient Disposition: HOME Condition: Stable Discharge Details Clinical Impression: Diverticulitis, Allergic reaction due to antibacterial drug Primary Care Provider: Umesh Covarrubias ED Provider: Valentino Almodovar Home Meds and New Rx's Prescriptions: New amoxicillin-pot clavulanate 875-125 mg tablet 1 tab PO BID Qty: 13 0RF prednisone 20 mg tablet 40 mg PO DAILY Qty: 8 0RF epinephrine [EpiPen] 0.3 mg/0.3 mL auto-injector 0.3 mg IM ONCE PRN (Reason: anaphylaxis) Qty: 1 0RF Rx Instructions: as a single dose; may repeat once Continued hawthorn 500 mg capsule PO DAILY 0RF Hold Instructions: Home Medication placed on hold at Doctor's office psyllium Packet 1 packet PO TID 0RF Hold Instructions: Home Medication placed on hold at Doctor's office Rx Instructions: takes 6 kim daily lorazepam 1 mg tablet 1 mg PO QHS PRN (Reason: insomnia/back spasms) Qty: 30 2RF aspirin 81 mg capsule 81 mg PO DAILY 0RF burdock root 500 mg capsule PO 0RF Rx Instructions: 3x day wheat/gluten digestive capsules PO 0RF Rx Instructions: tid slippery elm bark 400 mg capsule PO 0RF Rx Instructions: 3x /day aloe vera juice PO 0RF apple cider vinegar PO 0RF Rx Instructions: tid dgl lozenges PO 0RF (DME) mucus clearing device Device See Rx Instructions .ROUTE .MEDSUPPLY Qty: 1 0RF Rx Instructions: BID losartan 50 mg tablet 50 mg PO DAILY Qty: 90 3RF rosuvastatin 20 mg tablet 20 mg PO DAILY Qty: 90 3RF vitamin B complex Capsule 1 cap PO DAILY 0RF coenzyme Q10 [Co Q-10] 100 mg Capsule 300 mg PO DAILY 0RF Hold Instructions: Home Medication placed on hold at Doctor's office lycopene 10 mg Capsule 10 mg PO DAILY 0RF Hold Instructions: Home Medication placed on hold at Doctor's office cholecalciferol (vitamin D3) [Vitamin D3] 2,000 unit Tablet 2,000 unit PO DAILY 0RF Hold Instructions: Home Medication placed on hold at Doctor's office calcium citrate 760 mg calcium /3.5 gram Granules 760 mg PO DAILY 0RF Hold Instructions: Home Medication placed on hold at Doctor's office Probiotic 3 billion cell Capsule 3,000 mmu cells PO DAILY 0RF [place] 3-6-9 1,200 mg Capsule 1 cap PO DAILY 0RF Hold Instructions: Home Medication placed on hold at Doctor's office magnesium oxide 400 mg (241.3 mg magnesium) Tablet 400 mg PO BID Qty: 0 0RF Hold Instructions: Home Medication placed on hold at Doctor's office carboxymethylcellulose sodium [Refresh Plus] 0.5 % Dropperette 1 ea OU PRN PRNQty: 0 0RF Discontinued ciprofloxacin HCl 500 mg tablet 500 mg PO BID Qty: 12 0RF metronidazole 500 mg tablet 500 mg PO TID Qty: 18 0RF Discharge Instructions Instructions: General Allergic Reaction (ED) Additional Instructions: Please continue take Benadryl 25 mg every 8 hours for the next 3 days. Please take prednisone as prescribed. Your next dose is tomorrow 12/12/21. Please stop taking ciprofloxacin and stop taking metronidazole. Please start taking Augmentin. Your next dose is late this evening. Please contact your primary care physician to arrange follow-up. Return to the ER immediately for any worsening or new concerning symptoms. Referrals: Umesh Covarrubias DO [Primary Care Provider] - Discharge Data Discharge Date/Time-TO BE ENTERED AT DEPARTURE: 12/11/21 15:50 Medical Decision Making 81-year-old male started on metronidazole and ciprofloxacin yesterday for diverticulitis, returns today with hives improving after taking Benadryl a few hours ago and discontinuing antibiotic. Airway intact. Hemodynamically stable. Plan to discontinue ciprofloxacin and metronidazole. I will give burst course of prednisone and initiate treatment with Augmentin. Patient notes questionable history of penicillin allergy as a child. He was told later by an insurance application investigator that he likely did not have a penicillin allergy. He provided informed consent to treat with Augmentin. Patient was given initial dose of Augmentin and observed in the emerge department to ensure no immediate allergic reaction. Patient was reassessed remained stable, hives resolved, no reaction to Augmentin. After discharge with outpatient follow-up. Usual customary discharge instructions were reviewed with the patient. Medical Records Medical records reviewed: Yes I reviewed the patient's medical records. HPI General Mode of arrival: ambulatory. Date/Time Provider Initiated Documentation: 12/11/21 13:11. Limitations to Documentation: no limitations. Information obtained by: patient. HPI Narrative: 81-year-old male with history of recently diagnosed diverticulitis, started on ciprofloxacin and metronidazole yesterday, had diarrhea last night and then developed full body rash with hives and itching today. Symptoms were severe and are improving. He took Benadryl 50 mg earlier today then notes that rash is improved. He has no associated oral swelling and denies shortness of breath or difficulty breathing. Patient does note that he has tolerated ciprofloxacin in the past on multiple occasions. He denies abdominal pain at this time. Related Data Home Medications Medication Instructions Recorded Confirmed calcium citrate 760 mg PO DAILY 09/03/19 12/10/21 cholecalciferol (vitamin D3) 50 2,000 unit PO DAILY 09/03/19 12/10/21 mcg (2,000 unit) tablet (Vitamin D3) coenzyme Q10 100 mg capsule (Co 300 mg PO DAILY 09/03/19 12/10/21 Q-10) fish, borage, flaxseed oils-omega 1 cap PO DAILY 09/03/19 12/10/21 3,6,9 comb no.1 1,200 mg capsule ([place] 3-6-9) lactobacillus combination no.4 3 3,000 mmu cells PO DAILY 09/03/19 12/10/21 billion cell capsule (Probiotic) lycopene 10 mg capsule 10 mg PO DAILY 09/03/19 12/10/21 vitamin B complex 1 cap PO DAILY 09/03/19 12/10/21 mucus clearing device #1 each 03/05/20 12/05/21 hawthorn 500 mg capsule mg PO DAILY cap 04/26/21 12/05/21 lorazepam 1 mg tablet 1 mg PO QHS PRN #30 tab 07/30/21 12/10/21 carboxymethylcellulose sodium 0.5 1 ea OU PRN PRN #0 ea 09/24/21 12/10/21 % eye drops in a dropperette (Refresh Plus) magnesium oxide 400 mg (241.3 mg 400 mg PO BID #0 tab 09/24/21 12/10/21 magnesium) tablet psyllium 1 packet PO TID 10/01/21 12/05/21 losartan 50 mg tablet 50 mg PO DAILY #90 tab 11/22/21 12/10/21 rosuvastatin 20 mg tablet 20 mg PO DAILY #90 tab 11/22/21 12/10/21 aloe vera juice PO 12/03/21 12/05/21 apple cider vinegar PO 12/03/21 12/05/21 burdock root 500 mg capsule mg PO 12/03/21 12/05/21 dgl lozenges PO 12/03/21 12/05/21 slippery elm bark 400 mg capsule mg PO 12/03/21 12/05/21 wheat/gluten digestive capsules PO 12/03/21 12/05/21 aspirin 81 mg capsule 81 mg PO DAILY 12/05/21 12/10/21 amoxicillin 875 mg-potassium 1 tab PO BID #13 tab 12/11/21 clavulanate 125 mg tablet epinephrine 0.3 mg/0.3 mL 0.3 mg (0.3 mL) IM ONCE PRN #1 ea 12/11/21 injection, auto-injector (EpiPen) prednisone 20 mg tablet 40 mg PO DAILY #8 tab 12/11/21 Previous Rx's Medication Instructions Recorded lorazepam 1 mg tablet 1 mg PO QHS PRN #30 tab 07/30/21 carboxymethylcellulose sodium 0.5 1 ea OU PRN PRN #0 ea 09/24/21 % eye drops in a dropperette (Refresh Plus) magnesium oxide 400 mg (241.3 mg 400 mg PO BID #0 tab 09/24/21 magnesium) tablet losartan 50 mg tablet 50 mg PO DAILY #90 tab 11/22/21 rosuvastatin 20 mg tablet 20 mg PO DAILY #90 tab 11/22/21 amoxicillin 875 mg-potassium 1 tab PO BID #13 tab 12/11/21 clavulanate 125 mg tablet epinephrine 0.3 mg/0.3 mL 0.3 mg (0.3 mL) IM ONCE PRN #1 ea 12/11/21 injection, auto-injector (EpiPen) prednisone 20 mg tablet 40 mg PO DAILY #8 tab 12/11/21 Allergies Allergy/AdvReac Type Severity Reaction Status Date / Time metronidazole Allergy Intermediate Skin Rash Unverified 12/11/21 08:04 ciprofloxacin [From Cipro] Allergy Mild Skin Rash Unverified 12/11/21 15:37 sulfamethoxazole Allergy turns red Verified 12/10/21 14:57 [From Bactrim] trimethoprim [From Bactrim] Allergy turns red Verified 12/10/21 14:57 ropinirole AdvReac Severe insomina, Verified 12/10/21 14:57 weakness, intense fatigue amoxicillin [Amoxicillin] AdvReac Mild Skin Rash Verified 12/10/21 14:57 Penicillins AdvReac Unknown as a kid Verified 12/10/21 14:57 General Stated Complaint: Allergic ANIBAL: 3 Review of Systems All systems reviewed & are unremarkable except as noted in HPI and below Constitutional Constitutional: Denies fever(s) Gastrointestinal Gastrointestinal: Reports as per HPI PFSH All Active Problems Diverticulitis (Chronic) Constipation (Acute) Allergic reaction due to antibacterial drug (Acute) Lightheadedness (Acute) New daily persistent headache (Acute) Balance disorder (Acute) Tubular adenoma (Acute 11/04/21) Dizziness (Acute) History of diverticulitis (Acute) Degenerative disc disease (Acute) Chronic sinusitis (Acute) Asthma (Chronic) Maxillary pain (Acute) H/O aortic valve replacement (Acute) Jaw pain (Acute) Chest pain in adult (Acute) Other fatigue (Acute) 04/01/21-sleep clinic, Yesica Hopkins MD Psychophysiologic insomnia (Acute) 04/01/21-sleep clinic, Yesica Hopkins MD Periodic limb movement disorder (Acute) 04/01/21-sleep clinic, Yesica Hopkins MD Insomnia (Chronic) Sleep Clinic. Lorazepam tx Acute dyspnea (Acute) H/O endoscopy (Chronic) 11/2020 Sinusitis, chronic 11/04/21 [place] low grade esophageal ulcer, 2 cm Hiatal Hernia Obstructive sleep apnea (Chronic ~2018) Moderate-PAP therapy Hip osteoarthritis (Acute) Cough (Acute) per Nikki 02/10/2020 started Breo inhaler 03/02/20 F/U with Dr Jordan, next ov 04/06/20 CKD (chronic kidney disease) (Acute) Hyponatremia (Acute) White coat syndrome with hypertension (Chronic) Tests in the 120s at home Chronic cough (Acute) Chronic pansinusitis (Acute) Headache (Acute) Depressive disorder (Acute) Iron deficiency anemia (Acute) Diverticulitis (Chronic) GERD (gastroesophageal reflux disease) (Chronic) Diverticular disease of colon (Acute) Prostate cancer (Chronic) Aortic valve disorder (Acute) Cerebrovascular disease (Acute) Malaise and fatigue (Acute) Dizziness and giddiness (Acute) Peripheral vascular disease (Chronic) Hypercholesterolemia (Acute) HTN (hypertension) (Chronic) Sialoadenitis (Acute 05/29/14) Medical History History of pyloric stenosis as a child Surgical History H/O aortic valve replacement H/O colonoscopy (~11/04/21) 11/04/21 Dr Tyler H/O hemorrhoidectomy H/O shoulder surgery History of colon resection History of hernia repair History of tonsillectomy Family History Father Substance abuse Tuberculosis Mother Breast cancer Heart disease Sister Cancer Heart disease Hypertension Social History Smoking/Tobacco Use Status: Former Tobacco Use Quit Date: 09/07/1964 Pack-years: 42 Tobacco: How many years used: 14 Smoking risk assessment performed?: Yes Alcohol Intake: former Drug use: Never Substance use type: does not use Adopted: No Caregiver/Support person: No Foster care: No Household members: spouse Housing: house Number of Children: 1 Do you need help understanding health information?: Never 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 Sexually active: Yes Do you think of yourself as: straight/heterosexual Current gender identity: male What is your relationship status?: Panel score (0-1 are the most socially isolated patients): 1 Seatbelt use: always Drive intox or ride w/intox commercial collections driver: No Working smoke detector in home: Yes Carbon monox detector in home: Yes Do you feel safe at home: Yes Do you feel safe in your relationship?: Yes Additional Social history: 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 Exam Const General: cooperative and no acute distress HENMT Mouth: moist mucous membranes Throat: posterior oropharynx normal Eyes Conjunctivae: normal conjunctivae Sclera: normal sclerae Neck Neck: trachea midline and supple Resp Auscultation: clear to auscultation bilaterally, no rales, no rhonchi and no wheezes Cardio Rate: regular rate and not tachycardic Rhythm: regular rhythm GI Palpation: soft, not firm, no guarding, no masses, not rigid and nontender Skin Rashes: rashes noted (hives face, arms, torso) Neuro General: patient alert, patient awake, patient oriented x3 and tone normal Extrem General: no edema Psych Appearance: grossly normal Mental Status: mental status grossly normal Course Vital Signs Vital signs: Vital Signs Temperature 36.7 C 12/11/21 12:52 Pulse 74 12/11/21 12:52 Respiratory Rate 16 12/11/21 12:52 Blood Pressure 134/62 12/11/21 12:52 Pulse Oximetry 99 12/11/21 12:52 Temperature 36.7 C 12/11/21 12:52 Pulse 72 12/11/21 14:02 Respiratory Rate 16 12/11/21 14:02 Respiratory Effort 12/11/21 12:59 Respiratory Pattern Normal 12/11/21 12:59 Blood Pressure 135/67 12/11/21 14:02 Pulse Oximetry 99 12/11/21 14:02 Oxygen Delivery Method Room Air 12/11/21 12:52 Oxygen Flow Rate 0 12/11/21 12:52
--- NOTE | 2021-12-11 15:19 | NUR.NOTE ---
pt states he feels back to normal, skin color is normal, swelling has decreased. no signs of allergicreaction. LISBETH
[2021-12-11 16:00] VITALS: BP 128/68; PULSE 68; RESP 16; TEMP 36.7; O2SAT 99
== END 2021-12-11 15:50 | disposition home or self-care (01) ==
PROVIDERS: Emergency Provider Student in an Organized Health Care Education/Training Program; PCP Family Medicine
DX: L50.0 Allergic urticaria (principal); T36.8X5A Adverse effect of other systemic antibiotics, initial encounter; T37.3X5A Adverse effect of other antiprotozoal drugs, initial encounter
CPT/HCPCS: 99283; J7512

== ENCOUNTER 2021-12-26 02:20 | Outpatient (CLI) | payer MEDICARE, OTHER, SELFPAY ==
[2021-12-26 10:01] LABS: Hemoglobin A1C 5.8 % (<5.7)
[2021-12-26 10:18] LABS: Iron 22 ug/dL (65-175); Total Iron Binding Capacity 327 ug/dL (250-450); Transferrin Sat 7 % (20-55)
[2021-12-26 10:20] LABS: Cholesterol 107 mg/dL (<200); HDL Cholesterol 60 mg/dL (40-60)
[2021-12-26 10:21] LABS: Triglyceride < 25 mg/dL (<150)
[2021-12-26 10:49] LABS: ALT 34 U/L (16-63); AST 24 U/L (15-37); Albumin 3.6 g/dL (3.4-5.0); Alkaline Phosphatase 58 U/L (46-116); Anion Gap 5.9 mmol/L (3-11); BUN 20 mg/dL (7-18); Bilirubin, Total 0.5 mg/dL (0.2-1.0); CO2 25.1 mmol/L (21.0-32.0); CREATININE 1.5 mg/dL (0.70-1.30); Calcium 8.8 mg/dL (8.5-10.1); Chloride 104 mmol/L (98-107); Estimated GFR 44.69 (mL/min/1.73m2); Glucose 93 mg/dL (74-106); Potassium 4.5 mmol/L (3.5-5.1); Sodium 135 mmol/L (136-145); TSH (W/Ref FT4) 0.44 uIU/mL (0.36-3.74); Vitamin B12 948 pg/mL (193-986)
[2021-12-26 11:50] LABS: LDL CHOLESTEROL 37 mg/dL (<100)
[2021-12-27 10:53] LABS: Hepatitis C Ab w Rflx HCV PCR Negative (Negative)
[2021-12-27 11:12] LABS: HIV-1/2 Ag & Ab Screen Negative (Negative)
[2021-12-27 14:05] LABS: Albumin 64.4 % (55.8-66.1); Albumin g/dL 3.7 g/dL (3.6-5.2); Total Protein 5.7 g/dL (6.3-8.2)
[2021-12-30 13:16] LABS: Intrinsic Factor Blocking Ab Negative (Negative)
== END 2021-12-26 02:21 | disposition home or self-care (01) ==
LOC: LBO 02:20
PROVIDERS: Psychiatry & Neurology Neurology; Student in an Organized Health Care Education/Training Program; PCP Family Medicine; Referring Provider Family Medicine; Visit Provider Family Medicine
DX: Z13.220 Encounter for screening for lipoid disorders (principal); I10 Essential (primary) hypertension; Z11.3 Encounter for screening for infections with a predominantly sexual mode of transmission; D64.9 Anemia, unspecified; N18.9 Chronic kidney disease, unspecified; R73.9 Hyperglycemia, unspecified; E78.00 Pure hypercholesterolemia, unspecified; G62.9 Polyneuropathy, unspecified
CPT/HCPCS: 36415; 62270; 80053; 80061; 82945; 83721; 86803; 87389; 89050; 89051; 82607; 83036; 83540; 83550; 84157; 84165; 84443; 86340; 87070; 87205

== ENCOUNTER 2021-12-26 09:09 | Outpatient (CLI) | payer MEDICARE, OTHER, SELFPAY ==
[2021-12-26 09:34] VITALS: BP 144/75; PULSE 72; RESP 17; TEMP 36.5; O2SAT 100
--- NOTE | 2021-12-26 09:50 | W.ANESPRE ---
General Info Date of Service Date Performed: 12/26/21 Height: 5 ft 7.2 in Weight: 69.1 kg Body Mass Index (BMI): 23.7 Surgical Procedure: Operation Date: 12/26/21 09:40 Proposed Procedure Side Surgeon p Lumbar Puncture w / opening pressure SUSHANT Darling Allergies and Home Medications Allergies Allergy/AdvReac Type Severity Reaction Status Date / Time metronidazole Allergy Intermediate Skin Rash Unverified 12/26/21 09:16 sulfamethoxazole Allergy turns red Verified 12/20/21 14:03 [From Bactrim] trimethoprim [From Bactrim] Allergy turns red Verified 12/20/21 14:03 ropinirole AdvReac Severe insomina, Verified 12/20/21 14:03 weakness, intense fatigue Home Medication Medication Instructions Recorded calcium citrate 760 mg PO DAILY 09/03/19 cholecalciferol (vitamin D3) 50 2,000 unit PO DAILY 09/03/19 mcg (2,000 unit) tablet (Vitamin D3) coenzyme Q10 100 mg capsule (Co 300 mg PO DAILY 09/03/19 Q-10) fish, borage, flaxseed oils-omega 1 cap PO DAILY 09/03/19 3,6,9 comb no.1 1,200 mg capsule ([place] 3-6-9) lactobacillus combination no.4 3 3,000 mmu cells PO DAILY 09/03/19 billion cell capsule (Probiotic) lycopene 10 mg capsule 10 mg PO DAILY 09/03/19 vitamin B complex 1 cap PO DAILY 09/03/19 mucus clearing device #1 each 03/05/20 hawthorn 500 mg capsule mg PO DAILY cap 04/26/21 lorazepam 1 mg tablet 1 mg PO QHS PRN #30 tab 07/30/21 carboxymethylcellulose sodium 0.5 1 ea OU PRN PRN #0 ea 09/24/21 % eye drops in a dropperette (Refresh Plus) magnesium oxide 400 mg (241.3 mg 400 mg PO BID #0 tab 09/24/21 magnesium) tablet psyllium 1 packet PO TID 10/01/21 losartan 50 mg tablet 50 mg PO DAILY #90 tab 11/22/21 rosuvastatin 20 mg tablet 20 mg PO DAILY #90 tab 11/22/21 aloe vera juice PO 12/03/21 apple cider vinegar PO 12/03/21 burdock root 500 mg capsule mg PO 12/03/21 dgl lozenges PO 12/03/21 slippery elm bark 400 mg capsule mg PO 12/03/21 wheat/gluten digestive capsules PO 12/03/21 aspirin 81 mg capsule 81 mg PO DAILY 12/05/21 amoxicillin 875 mg-potassium 1 tab PO BID #13 tab 12/11/21 clavulanate 125 mg tablet epinephrine 0.3 mg/0.3 mL 0.3 mg (0.3 mL) IM ONCE PRN #1 ea 12/11/21 injection, auto-injector (EpiPen) prednisone 20 mg tablet 40 mg PO DAILY #8 tab 12/11/21 PFS Active Problems Active Problems: Problem Status Onset Code Diverticulitis K57.92 Constipation K59.00 Allergic reaction due to antibacterial drug T36.95XA Lightheadedness R42 New daily persistent headache G44.52 Balance disorder R26.89 Tubular adenoma 11/04/21 D36.9 Dizziness R42 History of diverticulitis Z87.19 Degenerative disc disease Chronic sinusitis J32.9 Asthma J45.909 Maxillary pain R68.84 H/O aortic valve replacement Z95.2 Jaw pain R68.84 Chest pain in adult R07.9 Other fatigue R53.83 Psychophysiologic insomnia F51.04 Periodic limb movement disorder G47.61 Insomnia G47.00 Acute dyspnea R06.00 H/O endoscopy Z98.890 Obstructive sleep apnea ~2018 G47.33 Hip osteoarthritis M16.9 Cough R05 CKD (chronic kidney disease) N18.9 Hyponatremia E87.1 White coat syndrome with hypertension I10 Chronic cough R05 Chronic pansinusitis J32.4 Headache R51 Depressive disorder F32.9 Iron deficiency anemia D50.9 Diverticulitis K57.92 GERD (gastroesophageal reflux disease) K21.9 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 Prostate cancer C61 Aortic valve disorder I35.9 Cerebrovascular disease I67.9 Malaise and fatigue R53.81, R53.83 Dizziness and giddiness R42 Peripheral vascular disease I73.9 Hypercholesterolemia E78.00 HTN (hypertension) I10 Sialoadenitis 05/29/14 K11.20 Medical History Medical History History of pyloric stenosis as a child Surgical History Surgical History H/O aortic valve replacement H/O colonoscopy (~11/04/21) 11/04/21 Dr Tyler H/O hemorrhoidectomy H/O shoulder surgery History of colon resection History of hernia repair History of tonsillectomy Tobacco Smoking/Tobacco Use Status: Former Tobacco Use Alcohol Alcohol Intake: former Substance Use Substance use: Never Substance use type: does not use Vital Signs and Lab Results Vital Signs Most Recent Vital Signs in EMR: Most Recent Vital Signs Temp Pulse Resp BP Pulse Ox 36.5 C 72 17 144/75 H 100 12/26/21 09:34 12/26/21 09:34 12/26/21 09:34 12/26/21 09:34 12/26/21 09:34 Lab Results Blood Type / Crossmatch: No Data to Display Complete Blood Count: White Blood Count 11.43 10^3/uL (4.4-10.8) H 12/10/21 15:12/10/21 Red Blood Count 4.76 10^6/uL (4.36-5.78) 12/10/21 15:27 12/10/21 Hemoglobin 12.2 g/dL (13.5-17.5) L 12/10/21 15:12/10/21 Hematocrit 38.6 % (40.0-50.0) L 12/10/21 15:27 12/10/21 Platelet Count 207 10^3/uL (130-400) 12/10/21 15:27 12/10/21 Complete Metabolic Panel: Sodium Level 134 mmol/L (136-145) L 12/10/21 15:27 12/10/21 Potassium Level 4.3 mmol/L (3.5-5.1) 12/10/21 15:12/10/21 Chloride Level 101 mmol/L (98-107) 12/10/21 15:12/10/21 Carbon Dioxide Level 27.1 mmol/L (21.0-32.0) 12/10/21 15:27 12/10/21 Blood Urea Nitrogen 25 mg/dL (7-18) H 12/10/21 15:12/10/21 Creatinine 1.8 mg/dL (0.70-1.30) H 12/10/21 15:27 12/10/21 Estimated GFR/1.73 m2 36.21 (mL/min/1.73m2) 12/10/21 15:12/10/21 Magnesium Level 2.1 mg/dL (1.8-2.4) 12/10/21 15:12/10/21 Calcium Level 9.9 mg/dL (8.5-10.1) 12/10/21 15:12/10/21 Albumin 3.5 g/dL (3.4-5.0) 12/10/21 15:12/10/21 Glucose Level 98 mg/dL (74-106) 12/10/21 15:12/10/21 Hemoglobin A1c Pending 12/26/21 09:07 12/26/21 Liver Function Panel: Alanine Aminotransferase (ALT/SGPT) 32 U/L (16-63) 12/10/21 15:27 12/10/21 Aspartate Amino Transf (AST/SGOT) 19 U/L (15-37) 12/10/21 15:12/10/21 Coagulation Panel: No Data to Display Cardiac Panel: No Data to Display Arterial Blood Gas: No Data to Display Venous Blood Gas: No Data to Display Pancreas Panel: Lipase 106 U/L (73-393) 12/10/21 15:12/10/21 Thyroid Panel: Thyroid Stimulating Hormone (TSH) 0.37 uIU/mL (0.36-3.74) 12/10/21 15:27 12/10/21 Infectious Disease: HIV (1&2) Ag and Ab, 4th Generation Pending 12/26/21 09:07 12/26/21 Hepatitis C Antibody Pending 12/26/21 09:07 12/26/21 Blood Cultures: No Data to Display Toxicology Panel: No Data to Display Imaging and Studies Imaging and Studies Study information below may be from another EMR and interpreted by another provider. Please see original notes in EMR for more complete details. EKG Summary: Conclusion Sinus rhythm...normal P axis, V-rate 50- 99 Left atrial enlargement...P, P'>60mS, <-0.15mV V1 Otherwise normal Echocardiogram Summary: Conclusion Normal left ventricular wall thickness and chamber size. Estimated ejection fraction is 55%. There are no segmental wall motion abnormalities Normal right ventricular size and systolic function Both atria are normal in size There is a bioprosthetic aortic valve. Peak gradient is 20, mean is 12 mmHg. There is trace to mild aortic regurgitation Mitral annular calcification. Mild mitral regurgitation Normal tricuspid valve with trace regurgitation. Estimated right ventricular systolic pressure is normal at 26 mmHg Carotid Artery Summary:: MPRESSION: Significant plaque bilaterally, most prominent in the left carotid bulb and proximal left ICA where there are elevated velocities indicating stenosis greater than 70 percent. A lesser amount of stenosis is seen on the opposite-right side (less than 50 percent). Both vertebral arteries are patent and exhibit antegrade flow. Anesthesia Assessment and Plan Anesthesia History Personal History: No History of Anesthesia Complications Family History: No Family History of Anesthesia Complications Exercise Tolerance Exercise Tolerance: Metabolic Equivalents>4 Pertinent Negatives Pertinent Negatives: No Major Cardiovascular Symptoms or Complaints and No Major Pulmonary Symptoms or Complaints Cardiac & Pulmonary Exam Cardiac Exam: Normal S1/S2 Heart Sounds Pulmonary Exam: Clear Bilateral Breath Sounds Implantable Cardiac Device Does patient have a Pacemaker or an ICD?: No Airway Exam Known Difficult Airway: No Mallampati Class: 2 Mouth Opening: Normal (> 3cm) Thyromental Distance: Greater than 3 cm Neck Range of Motion: Full ROM Neck Circumference: Normal Teeth Condition: Normal Dentition ASA Classification ASA Score: ASA 2 Emergency Case?: No NPO Status NPO Status: NPO Clears >2 hours, Solids >8 hours Anesthesia Plan Resuscitation Status: Full Code Anesthesia Technique: MAC Anesthesia Airway Planned: Natural Airway Monitors Used: Standard Monitors
[2021-12-26 10:02] VITALS: BMI 23.7
--- NOTE | 2021-12-26 10:37 | W.ANESPROC ---
Lumbar Puncture Date Performed: 12/26/21 Procedure Time: 10:20 Requesting Provider: Rosanne Rudd Procedure Location: Day Surgery Unit Standard Monitors Applied: None Used Patient Position: Right Lateral Decubitus Timeout Performed: Yes Sedation Given (Indicate Dose Given): No Sedation given Patient Mental Status: Awake Sterility: Hand Hygiene, Surgical Cap, Surgical Mask, Sterile Gloves, Sterile Drape/Sheet and Chlorhexidine Placement Site: L3-L4 Interspace Spinal Needle Type: Quincke 22 Gauge Needle Length: 3.5 Inch Lumbar Puncture Procedure: Site Prepped, Sterile Drape Placed, 1% Lidocaine to skin and subcutaneous tissue with 25G needle, Spinal Needle Placed, Negative Heme, Positive CSF Flow, CSF Specimen placed into Tubes in Sequential Order, Specimen Labeled, Sent to Lab and Bone Contacted despite needle repositioning (First attempt unsuccessful at L4-5) Ultrasound: Not Used Opening CSF Pressure (cmH2O): 17 Paresthesia: None Number of Previous Attempts by Other Providers: 0 Number of Attempts (See previous attempts in note section): 2 Procedure Tolerated: No Complications and Patient tolerated well Procedure Outcome: Successful Performed By: Soledad Nayak
--- NOTE | 2021-12-26 10:47 | PDOC.DSDIS_ITS ---
Discharge Plan Disposition Patient Disposition: HOME Condition: Stable Discharge Details Reason For Visit: Diagnostic Lumbar Puncture with opening pressure Attending Provider: Soledad Nayak Primary Care Provider: Umesh Covarrubias Hospital Course Hospital Course: Admitted through Day Surgery for a diagnostic lumbar puncture ordered by Dr. Rudd. Patient tolerated procedure well, see note. Home Meds and New Rx's Prescriptions: No Action hawthorn 500 mg capsule PO DAILY 0RF Hold Instructions: Home Medication placed on hold at Doctor's office psyllium Packet 1 packet PO TID 0RF Hold Instructions: Home Medication placed on hold at Doctor's office Rx Instructions: takes 6 kim daily lorazepam 1 mg tablet 1 mg PO QHS PRN (Reason: insomnia/back spasms) Qty: 30 2RF aspirin 81 mg capsule 81 mg PO DAILY 0RF Hold Instructions: Home Medication placed on hold at Doctor's office burdock root 500 mg capsule PO 0RF Rx Instructions: 3x day wheat/gluten digestive capsules PO 0RF Rx Instructions: tid slippery elm bark 400 mg capsule PO 0RF Rx Instructions: 3x /day aloe vera juice PO 0RF apple cider vinegar PO 0RF Rx Instructions: tid dgl lozenges PO 0RF (DME) mucus clearing device Device See Rx Instructions .ROUTE .MEDSUPPLY Qty: 1 0RF Rx Instructions: BID losartan 50 mg tablet 50 mg PO DAILY Qty: 90 3RF rosuvastatin 20 mg tablet 20 mg PO DAILY Qty: 90 3RF vitamin B complex Capsule 1 cap PO DAILY 0RF coenzyme Q10 [Co Q-10] 100 mg Capsule 300 mg PO DAILY 0RF Hold Instructions: Home Medication placed on hold at Doctor's office lycopene 10 mg Capsule 10 mg PO DAILY 0RF Hold Instructions: Home Medication placed on hold at Doctor's office cholecalciferol (vitamin D3) [Vitamin D3] 2,000 unit Tablet 2,000 unit PO DAILY 0RF Hold Instructions: Home Medication placed on hold at Doctor's office calcium citrate 760 mg calcium /3.5 gram Granules 760 mg PO DAILY 0RF Hold Instructions: Home Medication placed on hold at Doctor's office Probiotic 3 billion cell Capsule 3,000 mmu cells PO DAILY 0RF [place] 3-6-9 1,200 mg Capsule 1 cap PO DAILY 0RF Hold Instructions: Home Medication placed on hold at Doctor's office magnesium oxide 400 mg (241.3 mg magnesium) Tablet 400 mg PO BID Qty: 0 0RF Hold Instructions: Home Medication placed on hold at Doctor's office carboxymethylcellulose sodium [Refresh Plus] 0.5 % Dropperette 1 ea OU PRN PRNQty: 0 0RF amoxicillin-pot clavulanate 875-125 mg tablet 1 tab PO BID Qty: 13 0RF prednisone 20 mg tablet 40 mg PO DAILY Qty: 8 0RF epinephrine [EpiPen] 0.3 mg/0.3 mL auto-injector 0.3 mg IM ONCE PRN (Reason: anaphylaxis) Qty: 1 0RF Rx Instructions: as a single dose; may repeat once Discharge Instructions Instructions: Lumbar Puncture (DC) Activity:: Activity as Tolerated Equipment/Supplies:: No Equipment Needed Diet:: As Tolerated Discharge Orders Discharge Orders: Discharge Order (Routine); Ordered 12/26/21 Ordered By: Soledad Nayak Discharge Data Discharge Physician: Soledad Nayak
[2021-12-26 10:51] VITALS: BP 137/71; PULSE 80; RESP 16; TEMP 36.2; O2SAT 99
[2021-12-26 11:20] VITALS: BP 123/68; PULSE 82; RESP 17; TEMP 36; O2SAT 100
[2021-12-26 11:24] LABS: Clarity Clear; RBC 0 /mm3 (0-5); Tube # 4; WBC 0 /uL (0-5); Xanthochromia Absent
[2021-12-26 11:49] LABS: Total Protein (CSF) 54 mg/dL (15-45)
[2021-12-26 11:50] LABS: Glucose (CSF) 62 mg/dL (40-70)
--- NOTE | 2021-12-26 13:42 | W.ANESPOSTOP ---
Postoperative Evaluation Date, Time and Location Date Performed: 12/26/21 Time Performed: 11:25 Patient Location: Day Surgery Unit Vital Signs Most Recent Imported Vital Signs: Most Recent Vital Signs Temp Pulse Resp BP Pulse Ox 36.0 C L 82 17 123/68 100 12/26/21 11:20 12/26/21 11:20 12/26/21 11:20 12/26/21 11:20 12/26/21 11:20 Pain Score Most Recent Pain Score: Most Recent Pain Score Pain Level 0 12/26/21 11:20 Assessment Mental Status: Awake (Alert & Oriented to Patient Baseline) Airway and Respiratory Function: Patent airway with normal (patient baseline) respiratory exam Cardiovascular Function: Hemodynamically Stable Hydration Status: Adequately Hydrated Nausea & Vomiting: No Nausea or Vomiting Pain: Pt. Denies Any Pain Peripheral Nerve Block: Patient did not receive a nerve block
== END 2021-12-26 11:58 | disposition home or self-care (01) ==
PROVIDERS: Psychiatry & Neurology Neurology; Student in an Organized Health Care Education/Training Program; PCP Family Medicine; Visit Provider Nurse Anesthetist, Certified Registered
PROC: 009U3ZZ Drainage of Spinal Canal, Percutaneous Approach (ICD-10-PCS; CPT 62270; principal; 2021-12-26 09:30)
DX: G44.52 New daily persistent headache (NDPH) (principal); R73.9 Hyperglycemia, unspecified; G93.2 Benign intracranial hypertension
CPT/HCPCS: 62270; 82945; 89050; 89051; 84157; 87070; 87205

== ENCOUNTER → 2022-01-20 14:00 | Outpatient (BNVA) | payer MEDICARE, OTHER, SELFPAY | PROVIDERS: PCP Family Medicine; Referring Provider Family Medicine; Visit Provider Psychiatry & Neurology Neurology | DX: R42 Dizziness and giddiness (principal); G44.52 New daily persistent headache (NDPH); R26.89 Other abnormalities of gait and mobility; I65.22 Occlusion and stenosis of left carotid artery | CPT/HCPCS: 99215 ==

== ENCOUNTER 2022-01-22 01:59 | Outpatient (RCR) | payer MEDICARE, OTHER, SELFPAY ==
[2022-01-08] MEDS: Normal Saline Flush 10 ML SYR IVP (12:32)
[2022-01-08] MEDS: IRON SUCROSE COMPLEX 300 MG in Normal Saline 250 ML 176.667 MG IVPB (12:40)
[2022-01-08] MEDS: Acetaminophen 325 MG TAB 650 MG PO (13:09)
[2022-01-15 12:18] VITALS: BP 148/80; PULSE 71; RESP 20; TEMP 36.5; O2SAT 98
[2022-01-15] MEDS: Normal Saline Flush 10 ML SYR IVP (12:22)
[2022-01-15] MEDS: IRON SUCROSE COMPLEX 300 MG in Normal Saline 250 ML 176.667 MG IVPB (12:35)
[2022-01-22] MEDS: IRON SUCROSE COMPLEX 300 MG in Normal Saline 250 ML 176.667 MG IVPB (12:49)
[2022-01-22] MEDS: Acetaminophen 325 MG TAB 650 MG PO (13:21)
[2022-01-22] MEDS: Normal Saline Flush 10 ML SYR IVP (13:22)
== END 2022-02-04 23:59 | disposition home or self-care (01) ==
LOC: INF 01:59
PROVIDERS: PCP Family Medicine; Visit Provider Family Medicine
DX: D50.9 Iron deficiency anemia, unspecified (principal)
CPT/HCPCS: 96365; 96366; J1756

== ENCOUNTER 2022-02-07 01:24 | Outpatient (CLI) | payer MEDICARE, OTHER, SELFPAY ==
[2022-02-07 15:45] LABS: Iron 61 ug/dL (65-175)
[2022-02-07 17:00] LABS: Vitamin B12 937 pg/mL (193-986)
== END 2022-02-07 01:25 | disposition home or self-care (01) ==
LOC: LBO 01:25
PROVIDERS: PCP Family Medicine; Visit Provider Family Medicine
DX: D50.9 Iron deficiency anemia, unspecified (principal)
CPT/HCPCS: 36415; 82607; 83540

== ENCOUNTER 2022-03-05 01:34 | Outpatient (RCR) | payer MEDICARE, OTHER, SELFPAY ==
[2022-02-05 00:11] VITALS: BP 148/80; PULSE 71; RESP 20; TEMP 36.5
[2022-02-19] MEDS: IRON SUCROSE COMPLEX 300 MG in Normal Saline 250 ML 176.667 MG IVPB (13:14)
[2022-02-26] MEDS: IRON SUCROSE COMPLEX 300 MG in Normal Saline 250 ML 176.667 MG IVPB (13:25)
[2022-02-26] MEDS: Normal Saline Flush 10 ML SYR IVP (13:31)
[2022-03-05] MEDS: Normal Saline Flush 10 ML SYR IVP (13:13)
[2022-03-05] MEDS: IRON SUCROSE COMPLEX 300 MG in Normal Saline 250 ML 176.667 MG IVPB (13:13)
== END 2022-03-06 23:59 | disposition home or self-care (01) ==
LOC: INF 01:34
PROVIDERS: PCP Family Medicine; Visit Provider Family Medicine
DX: D50.9 Iron deficiency anemia, unspecified (principal)
CPT/HCPCS: 96365; 96366; J1756

== ENCOUNTER 2022-03-26 01:33 | Outpatient (CLI) | payer MEDICARE, OTHER, SELFPAY ==
[2022-03-26 15:11] LABS: Iron 79 ug/dL (65-175)
[2022-03-26 16:46] LABS: Vitamin B12 787 pg/mL (193-986)
== END 2022-03-26 01:34 | disposition home or self-care (01) ==
LOC: LBO 01:33
PROVIDERS: PCP Family Medicine; Referring Provider Family Medicine; Visit Provider Family Medicine
DX: D50.9 Iron deficiency anemia, unspecified (principal)
CPT/HCPCS: 36415; 82607; 83540

== ENCOUNTER → 2022-04-01 13:06 | Outpatient (BNVA) | payer MEDICARE, OTHER, SELFPAY | PROVIDERS: PCP Family Medicine; Referring Provider Family Medicine; Visit Provider Psychiatry & Neurology Neurology | DX: R42 Dizziness and giddiness (principal); G44.52 New daily persistent headache (NDPH); R26.89 Other abnormalities of gait and mobility; I65.22 Occlusion and stenosis of left carotid artery | CPT/HCPCS: 99213 ==

== ENCOUNTER 2022-04-01 16:10 | Outpatient (REF) | payer MEDICARE, OTHER, SELFPAY ==
[2022-04-03 11:01] LABS: COVID-19 RT-PCR UVMMC Result Negative (Negative)
== END 2022-04-01 16:11 | disposition home or self-care (01) ==
LOC: LBN 16:10
PROVIDERS: PCP Family Medicine; Visit Provider Family Medicine
DX: Z20.822 Contact with and (suspected) exposure to COVID-19 (principal)
CPT/HCPCS: U0003

== ENCOUNTER → 2022-07-18 11:06 | Outpatient (CLI) | payer MEDICARE, OTHER, SELFPAY ==
--- NOTE | 2022-07-18 10:30 | DI.RAD_ITS ---
Exam(s) XR HIP LT COMPLETE AP PELVIS EXAM: XR HIP LT COMPLETE AP PELVIS CLINICAL HISTORY: Acute on chronic L hip pain. on plavix M25.552 PAIN LT HIP. TECHNIQUE: 2D digital imaging was performed. COMPARISON: No exams were available for comparison FINDINGS: 3 views No evidence of pelvic nor hip fracture. Some dystrophic calcification is noted in the soft tissues l ateral to the ischial tuberosity. Left hip exhibits no significant joint space narrowing nor osteophytes. Bone density normal. No sig nificant osseous lesions and bone density is normal. IMPRESSION: No significant findings in the left hip. No joint space narrowing nor osteophytes. DATA REPOSITORY: RADIATION DOSE DELIVERED:
== END ==
PROVIDERS: PCP Family Medicine; Visit Provider Family Medicine
DX: M25.552 Pain in left hip (principal)
CPT/HCPCS: 73502

== ENCOUNTER 2022-07-18 14:31 | Emergency (ER) | payer MEDICARE, OTHER, SELFPAY ==
[2022-07-18 15:12] VITALS: BP 140/60; PULSE 69; RESP 17; TEMP 36.7; O2SAT 96
--- NOTE | 2022-07-18 15:30 | DI.RAD_ITS ---
Exam(s) XR RIBS LT PA CHEST 3V EXAM: XR RIBS LT PA CHEST 3V CLINICAL HISTORY: left rib/hip pain. TECHNIQUE: 2D digital imaging was performed. 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 No obvious l eft rib fractures nor rib lesions. Chest-two views: There is an aortic valve prosthesis. Heart size normal and the mediastinum is not w idened. There are no infiltrates nor pleural effusions. No pulmonary edema. No pneumothorax. Ther e is a healed fracture of the right 6th rib and 7th rib. No acute fractures evident. Evidence of ro tator cuff surgery right shoulder. IMPRESSION: Findings as above but no evidence of acute left rib fracture and no significant pulmonary findings. DATA REPOSITORY: RADIATION DOSE DELIVERED:
--- NOTE | 2022-07-18 15:30 | DI.CT_ITS ---
Exam(s) CT ABDOMEN PELVIS W EXAM: CT ABDOMEN PELVIS W CLINICAL HISTORY: left hip pain, hx of diverticulitis. TECHNIQUE: Imaging Protocol: Axial computed tomography images with coronal and sagittal reformatted images were created and reviewed CONTRAST MATERIAL: Intravenous: Omnipaque 100cc Oral: None COMPARISON: CT CT ABDOMEN PELVIS W from 12/10/2021 FINDINGS: VISUALIZED LUNG BASES: No nodules nor pleural effusions evident. Prosthetic aortic valve noted. ABDOMEN: There is no ascites. LIVER: There are no focal hepatic lesions evident . GALLBLADDER/BILIARY: No obvious gallbladder pathology. CBD is not dilated. PANCREAS: No evidence of pancreatic mass nor dilatation of the pancreatic duct. SPLEEN: Spleen is not enlarged. No obvious intrasplenic lesions. Splenic and portal veins are paten t. ADRENALS: There are no significant adrenal masses. KIDNEYS:No cysts evident. No solid renal masses. No calculi nor hydronephrosis.. Prominent bilater al perirenal stranding is again noted, unchanged. ABDOMINAL AORTA: Abdominal aorta is not enlarged. LYMPH NODES:There is no retroperitoneal nor paraaortic adenopathy. ABDOMINAL WALL: Again noted is a fat only containing anterior abdominal wall umbilical hernia. GI: There is no evidence of bowel obstruction, free air, nor abscess. PELVIS: GI: No evidence of appendicitis.Again noted is evidence of partial sigmoid resection. No obvious abn ormality evident at the anastomosis in the deep pelvis. LYMPH NODES: There is no intrapelvic nor inguinal adenopathy. REPRODUCTIVE: Enlarged prostate. Measures 5.5 cm across by 4.4 cm AP. URINARY BLADDER: No calculi nor obvious masses evident OSSEOUS: No significant osseous lesions. Multilevel chronic degenerative disc disease and degenerative anterolisthesis L4 upon L5, approximate ly 1 cm. IMPRESSION: 1. No acute findings in the abdomen and pelvis. 2. There is evidence of partial sigmoid resection again noted. No obstruction at this level. No abs cess. No free fluid. 3. No evidence of appendicitis nor diverticulitis. 4. Somewhat impressive bilateral perinephric stranding again noted, unchanged. No calculi. No hydro nephrosis. No focal renal findings. RADIATION DOSE DELIVERED: 835.51mGy.cm Total DLP DATA REPOSITORY: All CT scans at this facility are submitted to the National Radiology Data Registry (NRDR) Dose Index Registry (DIR) with the [employer] (ACR). RADIATION OPTIMIZATION: All CT scans at this facility use at least one of these dose optimization te chniques: automated exposure control; mA and/or kV adjustment per patient size (includes targeted exa ms where dose is matched to clinical indication); or iterative reconstruction.
--- NOTE | 2022-07-18 15:40 | ED.GENADUL_ITS ---
Discharge Plan Disposition Patient Disposition: HOME Condition: Stable Discharge Details Clinical Impression: Acute hip pain Primary Care Provider: Umesh Covarrubais ED Provider: Gary Serna Home Meds and New Rx's Prescriptions: New lidocaine [Lidoderm] 5 % adhesive patch,medicated 1 patch topical DAILY PRNQty: 15 0RF Rx Instructions: leave on most painful area for up to 12 hrs cyclobenzaprine 5 mg tablet 5 mg PO QHS PRN (Reason: muscle spasm) Qty: 10 0RF No Action hawthorn 500 mg capsule PO DAILY Hold Instructions: Home Medication placed on hold at Doctor's office Horse Scooter PO DAILY clopidogrel 75 mg tablet 75 mg PO DAILY Qty: 90 0RF aspirin 81 mg capsule 81 mg PO DAILY Hold Instructions: Home Medication placed on hold at Doctor's office burdock root 500 mg capsule PO Rx Instructions: 3x day slippery elm bark 400 mg capsule PO Rx Instructions: 3x /day dgl lozenges PO lorazepam 1 mg tablet 1 mg PO QHS PRN (Reason: insomnia/back spasms) Qty: 30 2RF Konsyl 6 mg powder Not Applicable hydrocodone-acetaminophen 5-325 mg tablet 1 tab PO BID MDD 10 PRN (Reason: pain) Qty: 10 0RF (DME) mucus clearing device Device See Rx Instructions .ROUTE .MEDSUPPLY Qty: 1 Rx Instructions: BID losartan 50 mg tablet 50 mg PO DAILY Qty: 90 3RF rosuvastatin 20 mg tablet 20 mg PO DAILY Qty: 90 3RF pantoprazole 40 mg tablet,delayed release (DR/EC) 40 mg PO BID Qty: 180 3RF triamcinolone acetonide [Kenalog] 0.147 mg/gram aerosol 1 spray topical BID PRN (Reason: itching) Qty: 63 0RF vitamin B complex Capsule 1 cap PO DAILY coenzyme Q10 [Co Q-10] 100 mg Capsule 300 mg PO DAILY Hold Instructions: Home Medication placed on hold at Doctor's office lycopene 10 mg Capsule 10 mg PO DAILY Hold Instructions: Home Medication placed on hold at Doctor's office cholecalciferol (vitamin D3) [Vitamin D3] 2,000 unit Tablet 2,000 unit PO DAILY Hold Instructions: Home Medication placed on hold at Doctor's office calcium citrate 760 mg calcium /3.5 gram Granules 760 mg PO DAILY Hold Instructions: Home Medication placed on hold at Doctor's office Probiotic 3 billion cell Capsule 3,000 mmu cells PO DAILY [place] 3-6-9 1,200 mg Capsule 1 cap PO DAILY Hold Instructions: Home Medication placed on hold at Doctor's office magnesium oxide 400 mg (241.3 mg magnesium) Tablet 400 mg PO BID Qty: 0 0RF Hold Instructions: Home Medication placed on hold at Doctor's office carboxymethylcellulose sodium [Refresh Plus] 0.5 % Dropperette 1 ea OU PRN PRNQty: 0 0RF Discharge Instructions Instructions: Leg Pain (ED) Additional Instructions: Please follow-up with your primary care physician. Please return to the emergency department for any worsening symptoms Medical Decision Making 82-year-old male recent carotid stenting, on Plavix, presents with atraumatic left hip pain in the setting of recent increase in physical activity, no definitive trauma, noted a bruise on his left hip patient does have 2 cm subacute appearing ecchymosis to left hip range of motion of upper and lower extremities intact, neurologically intact, ambulatory without assistance, patient does endorse acute on chronic constipation and has had recurrent diverticulitis abdomen soft nontender nondistended. Patient appears nontoxic. Likely musculoskeletal hip pain related to exertion consider strain versus s prain muscles consider atypical sciatica however given patient's age antiplatelet therapy and history of diverticulitis must consider intra-abdominal process such as diverticulitis versus retroperitoneal hematoma versus less likely bowel obstruction. Patient also requesting left rib evaluation despite lack of rib pain or trauma. Will obtain basic labs, imaging, analgesia close reassessment disposition pending results 19: 12 patient was comfortably no acute distress;labs and imaging unremarkable. Likely musculoskeletal strain. Counseled regarding home remedies HPI General Date/Time Provider Initiated Documentation: 07/18/22 15:17 . HPI Narrative: 82-year-old male recent left carotid stenting, on Plavix, presents with atraumatic left hip pain over the past several days, endorses that he recently bought a new back brace and has been doing some walking with his over the past couple of days, woke up in the middle of the night with excruciating left hip discomfort is also noticed some bruising on his skin specifically over his left hip. No trauma that patient or partner cannot attest to. No nausea vomiting or abdominal pain, patient does have history of recurrent diverticulitis. Related Data Home Medications Medication Instructions Recorded Confirmed calcium citrate 760 mg calcium/3.5 760 mg PO DAILY 09/03/19 07/18/22 gram oral granules cholecalciferol (vitamin D3) 50 2,000 unit PO DAILY 09/03/19 07/18/22 mcg (2,000 unit) tablet (Vitamin D3) coenzyme Q10 100 mg capsule (Co 300 mg PO DAILY 09/03/19 07/18/22 Q-10) fish, borage, flaxseed oils-omega 1 cap PO DAILY 09/03/19 07/18/22 3,6,9 comb no.1 1,200 mg capsule ([place] 3-6-9) lactobacillus combination no.4 3 3,000 mmu cells PO DAILY 09/03/19 07/18/22 billion cell capsule (Probiotic) lycopene 10 mg capsule 10 mg PO DAILY 09/03/19 07/18/22 vitamin B complex 1 cap PO DAILY 09/03/19 07/18/22 mucus clearing device #1 ea 03/05/20 07/17/22 hawthorn 500 mg capsule mg PO DAILY 04/26/21 07/17/22 carboxymethylcellulose sodium 0.5 1 ea OU PRN PRN #0 ea 09/24/21 07/17/22 % eye drops in a dropperette (Refresh Plus) magnesium oxide 400 mg (241.3 mg 400 mg PO BID #0 tabs 09/24/21 07/18/22 magnesium) tablet losartan 50 mg tablet 50 mg PO DAILY #90 tabs 11/22/21 07/18/22 rosuvastatin 20 mg tablet 20 mg PO DAILY #90 tabs 11/22/21 07/18/22 burdock root 500 mg capsule mg PO 12/03/21 07/17/22 dgl lozenges PO 12/03/21 07/17/22 slippery elm bark 400 mg capsule mg PO 12/03/21 07/17/22 aspirin 81 mg capsule 81 mg PO DAILY 12/05/21 07/18/22 lorazepam 1 mg tablet 1 mg PO QHS PRN insomnia/back 01/21/22 07/18/22 spasms #30 tabs Horse Scooter PO DAILY 02/27/22 07/17/22 pantoprazole 40 mg tablet,delayed 40 mg PO BID #180 tabs 03/13/22 07/18/22 release Konsyl Not Applicable 06/05/22 07/17/22 clopidogrel 75 mg tablet 75 mg PO DAILY #90 tabs 07/08/22 07/18/22 triamcinolone acetonide 0.147 1 spray topical BID PRN itching 07/15/22 07/18/22 mg/gram topical aerosol (Kenalog) #63 grams hydrocodone 5 mg-acetaminophen 325 1 tab PO BID PRN pain #10 tabs 07/17/22 07/18/22 mg tablet cyclobenzaprine 5 mg tablet 5 mg PO QHS PRN muscle spasm #10 07/18/22 tabs lidocaine 5 % topical patch 1 patch topical DAILY PRN #15 ea 07/18/22 (Lidoderm) Previous Rx's Medication Instructions Recorded carboxymethylcellulose sodium 0.5 1 ea OU PRN PRN #0 ea 09/24/21 % eye drops in a dropperette (Refresh Plus) magnesium oxide 400 mg (241.3 mg 400 mg PO BID #0 tabs 09/24/21 magnesium) tablet losartan 50 mg tablet 50 mg PO DAILY #90 tabs 11/22/21 rosuvastatin 20 mg tablet 20 mg PO DAILY #90 tabs 11/22/21 lorazepam 1 mg tablet 1 mg PO QHS PRN insomnia/back 01/21/22 spasms #30 tabs pantoprazole 40 mg tablet,delayed 40 mg PO BID #180 tabs 03/13/22 release clopidogrel 75 mg tablet 75 mg PO DAILY #90 tabs 07/08/22 triamcinolone acetonide 0.147 1 spray topical BID PRN itching 07/15/22 mg/gram topical aerosol (Kenalog) #63 grams hydrocodone 5 mg-acetaminophen 325 1 tab PO BID PRN pain #10 tabs 07/17/22 mg tablet cyclobenzaprine 5 mg tablet 5 mg PO QHS PRN muscle spasm #10 07/18/22 tabs lidocaine 5 % topical patch 1 patch topical DAILY PRN #15 ea 07/18/22 (Lidoderm) Allergies Allergy/AdvReac Type Severity Reaction Status Date / Time metronidazole Allergy Intermediate Skin Rash Verified 07/18/22 15:22 sulfamethoxazole Allergy turns red Verified 07/18/22 15:22 [From Bactrim] trimethoprim [From Bactrim] Allergy turns red Verified 07/18/22 15:22 ropinirole AdvReac Severe insomina, Verified 07/18/22 15:22 weakness, intense fatigue General Stated Complaint: Nk/Back Pain ANIBAL: 4 Review of Systems Narrative: Review of Systems Constitutional: negative Eyes: negative ENT: negative Cardiovascular: negative Respiratory: negative Gastrointestinal: negative : negative Musculoskeletal: Left hip pain Skin: negative Neurologic: negative Psych: negative PFSH All Active Problems (Updated 07/18/22 @ 19:14 by Gary Serna MD) Acute hip pain (Acute) Left hip pain (Acute) Corns and callosities (Acute) Nail dystrophy (Acute) History of vascular surgery (Chronic) Stenting of L internal carotid artery, 06/28, [facility] [place], started plavix Eczema (Acute) Arteriosclerosis of left carotid artery (Acute) 05/22/22 Vascular Stenosis of carotid artery (Acute) 05/22/22 [facility] [place] Vascular History of hemoptysis (Acute) Onychomycosis (Acute 04/23/22) 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 Lorazepam tx Acute dyspnea (Acute) H/O endoscopy (Chronic) 11/2020 Sinusitis, chronic 11/04/21 [place] low grade esophageal ulcer, 2 cm Hiatal Hernia Obstructive sleep apnea (Chronic ~2017) Moderate-PAP therapy Hip osteoarthritis (Acute) Cough (Acute) per Nikki 02/10/2020 started Breo inhaler 03/02/20 F/U with Dr Jordan, next ov 04/06/20 CKD (chronic kidney disease) (Acute) White coat syndrome with hypertension (Chronic) Tests in the 120s at home Chronic cough (Acute) Chronic pansinusitis (Acute) Headache (Acute) Depressive disorder (Acute) Iron deficiency anemia (Acute) Diverticulitis (Chronic) GERD (gastroesophageal reflux disease) (Chronic) Diverticular disease of colon (Acute) Prostate cancer (Chronic) Aortic valve disorder (Acute) Cerebrovascular disease (Acute) Malaise and fatigue (Acute) Dizziness and giddiness (Acute) Peripheral vascular disease (Chronic) Hypercholesterolemia (Acute) HTN (hypertension) (Chronic) Medical History History of pyloric stenosis as a child Surgical History H/O aortic valve replacement H/O colonoscopy (~11/04/21) 11/04/21 Dr Tyler H/O hemorrhoidectomy H/O shoulder surgery History of colon resection History of hernia repair History of tonsillectomy Family History Father Substance abuse Tuberculosis Mother Breast cancer Heart disease Sister Cancer Heart disease Hypertension Social History (Updated 06/20/22 @ 13:24 by Milagros Danielson) Smoking/Tobacco Use Status: Former Tobacco Use Quit Date: 09/07/1964 Pack- years: 42 Tobacco: How many years used: 14 Smoking risk assessment performed?: Yes Alcohol Intake: former Drug use: Never Substance use type: does not use Adopted: No Caregiver/Support person: No Foster care: No Household members: spouse Housing: house Number of Children: 1 Education Level: college Do you need help understanding health information?: Never 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 Pets and animals: No Sexually active: Yes Do you think of yourself as: straight/heterosexual Current gender identity: male What is your relationship status?: How often do you talk on the phone with friends or family?: three or more times per week How often do you get together with friends or relatives?: never How often do you attend spiritism or christian services?: decline to answer Do you belong to any clubs or organized social groups?: no Panel score (0-1 are the most socially isolated patients): 2 What type of physical activity do you participate in: other Details: 2nd Degree Shalini Rodarte Duration: 60-90 minutes/day Frequency: 1-2 times per week Seatbelt use: always Drive intox or ride w/intox driver's license examiner: No Working smoke detector in home: Yes Carbon monox detector in home: Yes Do you feel safe at home: Yes Do you feel safe in your relationship?: Yes Additional Social history: 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 Exam Narrative Exam Narrative: Physical Examination General: alert, awake, cooperative, resting comfortably, no acute distress HEENT: normocephalic, atraumatic; PERRL, EOM intact, conjunctiva normal; no nasal discharge; moist mucous membranes, oral and pharyngeal mucosa normal, tolerating secretions Neck: supple, trachea midline; full ROM Chest: normal to inspection Respiratory: normal respiratory effort, speaking in full sentences, clear to auscultation, no wheezing, rales or rhonchi Cardiac: regular rate, regular rhythm, S1S2 intact, no murmurs rubs or gallops GI: abdomen soft, non-tender, non-distended; no palpable mass or hepatosplenomegaly Back: No midline spinal tenderness crepitus or deformity Skin: 2 cm subacute appearing ecchymosis overlying left hip Neuro: AAOx3, normal speech, moving all extremities Extremities: Full range of motion bilateral upper and lower extremities Psych: Appropriate mood and affect Course Vital Signs Vital signs: Vital Signs Temperature 36.7 C 07/18/22 15:12 Pulse 69 07/18/22 15:12 Respiratory Rate 17 07/18/22 15:12 Blood Pressure 140/60 07/18/22 15:12 Pulse Oximetry 96 07/18/22 15:12 Temperature 36.7 C 07/18/22 15:12 Temperature Source Tympanic 07/18/22 15:12 Pulse 69 07/18/22 15:12 Respiratory Rate 17 07/18/22 15:12 Respiratory Effort Non-Labored 07/18/22 15:21 Blood Pressure 140/60 07/18/22 15:12 Blood Pressure Position Sitting 07/18/22 15:12 Pulse Oximetry 96 07/18/22 15:12 Oxygen Delivery Method Room Air 07/18/22 15:12 Oxygen Flow Rate 0 07/18/22 15:12 Pain Level 1 07/18/22 15:26
[2022-07-18 16:07] LABS: Bilirubin Negative (Negative); Blood Negative (Negative); Clarity Clear (Clear); Glucose Negative (Negative); Ketones Negative (Negative); Leukocyte Esterase Negative (Negative); Nitrite Negative (Negative); Urobilinogen 0.2 EU/dL (Up TO 0.2)
[2022-07-18] MEDS: Cyclobenzaprine 10 MG TAB PO (16:15)
[2022-07-18 16:19] LABS: Bacteria Negative HPF (Negative); Crystals Few Amorphous HPF (Negative); Epithelial Cells Negative HPF (Negative); RBC Negative HPF (0-2); WBC Negative HPF (0-5)
[2022-07-18 16:20] LABS: C & S Indicated? No; Mucus Moderate (Negative); Other Cells Few Spermatozoa (Negative)
[2022-07-18] MEDS: Lidocaine 5% Patch 1 PATCH TP (17:13)
[2022-07-18 17:16] LABS: Abs Immature Grans 0.07 10^3/uL (0.0-0.06); Absolute Basophil Count 0.05 10^3/uL (0.0-0.2); Absolute Eosinophil Count 0.25 10^3/uL (0.0-0.7); Absolute Lymphocyte Count 1.49 10^3/uL (1.2-3.4); Absolute Monocyte Count 0.75 10^3/uL (0.1-0.8); Absolute Neutrophil Count 5.74 10^3/uL (1.2-6.7); Basophils % 0.6; HCT 47.6 % (40.0-50.0); HGB 16.1 g/dL (13.5-17.5); Immature Grans % 0.8; Lymphocytes % 17.8; MCH 31.6 pg (27.0-33.0); MCHC 33.8 % (32.0-36.0); MCV 93 fL (80-95); MPV 9.5 fL (8.0-11.0); Neutrophils % 68.8; Platelet Count 218 10^3/uL (130-400); RDW 13.6 % (11.8-14.1); RDW-SD 47.1 fL; WBC 8.35 10^3/uL (4.4-10.8)
[2022-07-18 17:40] LABS: ALT 41 U/L (16-63); AST 26 U/L (15-37); Albumin 4.4 g/dL (3.4-5.0); Alkaline Phosphatase 63 U/L (46-116); Anion Gap 7.8 mmol/L (3-11); BUN 25 mg/dL (7-18); Bilirubin, Total 0.8 mg/dL (0.2-1.0); CO2 26.2 mmol/L (21.0-32.0); CREATININE 1.7 mg/dL (0.70-1.30); Chloride 94 mmol/L (98-107); Estimated GFR 39.26 (mL/min/1.73m2); Glucose 77 mg/dL (74-106); Potassium 4.8 mmol/L (3.5-5.1); Sodium 128 mmol/L (136-145); Total Protein 7.8 g/dL (6.4-8.2)
[2022-07-18 17:59] LABS: PTT Activated 26.8 sec (21.0-27.5); Prothrombin Time 9.8 sec (9.3-11.0)
[2022-07-18] MEDS: Normal Saline - Diluent 50 ML VIAL IV (18:04)
[2022-07-18] MEDS: Omnipaque 350 MG/ML 100 ML BTL IJ (18:04)
[2022-07-18] MEDS: Normal Saline Flush 10 ML SYR IVP (18:10)
[2022-07-18] MEDS: Normal Saline 500 ML 1000 ML IV (18:28)
--- NOTE | 2022-07-18 18:37 | DI.VRAD_ITS ---
PROCEDURE INFORMATION: Exam: XR Left Ribs with PA Chest Exam date and time: 07/18/2022 6:10 PM Age: 82 years old Clinical indication: Other: Lt rib pain TECHNIQUE: Imaging protocol: Radiologic exam of the Left ribs with PA chest. Views: 3 views COMPARISON: CR XR CHEST 2V PA LATERAL 04/08/2021 3:46 PM FINDINGS: Lungs: Chronic interstitial prominence is grossly stable. No consolidation. Pleural spaces: No pleural effusion. No pneumothorax. Heart/Mediastinum: Grossly stable. Bones/joints: No acute fracture. Degenerative changes in the spine and scoliosis are grossly stable. Postsurgical changes in the shoulders are grossly stable IMPRESSION: No acute findings. Dictated and Authenticated by: Kirby Casanova MD. Ordering:BILLY Vega MD
--- NOTE | 2022-07-18 18:37 | DI.VRAD_ITS ---
PROCEDURE INFORMATION: Exam: CT Abdomen And Pelvis With Contrast Exam date and time: 07/18/2022 5:56 PM Age: 82 years old Clinical indication: Other: Left hip pain, HX of diverticulitis; Prior surgery; Surgery date: 6+ months; Surgery type: Colon resection, aortic valve replacement TECHNIQUE: Imaging protocol: Computed tomography of the abdomen and pelvis with contrast. Contrast material: OMNIPAQUE 350; Contrast volume: 80 ml; Contrast route: INTRAVENOUS (IV); COMPARISON: CT ABDOMEN PELVIS W 12/10/2021 4:36 PM FINDINGS: Limited secondary to motion artifact. Minimal subsegmental atelectasis versus scarring Liver: Fatty infiltration. No mass. Gallbladder and bile ducts: Normal. No calcified stones. No ductal dilation. Pancreas: Normal. No ductal dilation. Spleen: Normal. No splenomegaly. Adrenal glands: Normal. No mass. Kidneys and ureters: Nonspecific perinephric stranding is grossly stable No hydronephrosis. Stomach and bowel: Suture line in the distal colon redemonstrated. No obstruction. No mucosal thickening. Appendix: No evidence of appendicitis. Intraperitoneal space: Unremarkable. No free air. No significant fluid collection. Vasculature: Unremarkable. No abdominal aortic aneurysm. Lymph nodes: Unremarkable. No enlarged lymph nodes. Urinary bladder: Unremarkable as visualized. Reproductive: Unremarkable as visualized. Bones/joints: Unremarkable. No acute fracture. Soft tissues: Moderate periumbilical fat containing hernia IMPRESSION: No acute findings. Limited study as described Dictated and Authenticated by: Kirby Casanova MD. Ordering:BILLY Vega MD
== END 2022-07-18 19:32 | disposition home or self-care (01) ==
PROVIDERS: Emergency Provider Emergency Medicine; PCP Family Medicine
DX: R58 Hemorrhage, not elsewhere classified (principal); M25.552 Pain in left hip; R07.89 Other chest pain
CPT/HCPCS: 36415; 71101; 80053; 96360; 99285; 73502; 74177; 81003; 81015; 85025; 85610; 85730; 99284; J3490

== ENCOUNTER → 2022-07-24 13:47 | Outpatient (BNVA) | payer MEDICARE, OTHER, SELFPAY | PROVIDERS: PCP Family Medicine; Referring Provider Family Medicine; Visit Provider Psychiatry & Neurology Neurology | DX: R26.89 Other abnormalities of gait and mobility (principal); G44.52 New daily persistent headache (NDPH); R42 Dizziness and giddiness; I65.22 Occlusion and stenosis of left carotid artery; I10 Essential (primary) hypertension | CPT/HCPCS: 99215 ==

== ENCOUNTER 2022-09-02 14:54 | Emergency (ER) | payer MEDICARE, OTHER, SELFPAY ==
[2022-09-02] VITALS (20 sets, daily range): BP systolic 137–154; BP diastolic 62–79; PULSE 68–76; RESP 9–21; TEMP 36.7; O2SAT 95–100
--- NOTE | 2022-09-02 15:00 | RT.EKG_ITS ---
APPROVED REPORT Exam: Resting ECG Reason for Exam: PALPITATIONS Patient Location: E HR:73 bpm ECG Measurements Heart Rate 73 AXIS IL 190 P 68 QRSd 79 QRS 47 QT 374 T 57 QTc 412 Conclusion Sinus rhythm...normal P axis, V-rate 60- 99 Ventricular premature complex...V complex w/ short R-R interval Probable left atrial enlargement...P >50mS, <-0.10mV V1
[2022-09-02 15:46] LABS: Abs Immature Grans 0.05 10^3/uL (0.0-0.06); Absolute Basophil Count 0.05 10^3/uL (0.0-0.2); Absolute Eosinophil Count 0.35 10^3/uL (0.0-0.7); Absolute Lymphocyte Count 2.41 10^3/uL (1.2-3.4); Absolute Monocyte Count 0.72 10^3/uL (0.1-0.8); Absolute Neutrophil Count 5.83 10^3/uL (1.2-6.7); Basophils % 0.5; Eosinophils % 3.7; HCT 45.4 % (40.0-50.0); HGB 15.5 g/dL (13.5-17.5); Immature Grans % 0.5; Lymphocytes % 25.6; MCH 32.2 pg (27.0-33.0); MCHC 34.1 % (32.0-36.0); MCV 94 fL (80-95); MPV 10.2 fL (8.0-11.0); Monocytes % 7.7; Platelet Count 194 10^3/uL (130-400); RBC 4.81 10^6/uL (4.36-5.78); RDW 14.1 % (11.8-14.1); RDW-SD 49.1 fL; WBC 9.41 10^3/uL (4.4-10.8)
[2022-09-02 16:10] LABS: ALT 40 U/L (16-63); AST 31 U/L (15-37); Alkaline Phosphatase 61 U/L (46-116); Anion Gap 5.5 mmol/L (3-11); BUN 25 mg/dL (7-18); Bilirubin, Total 0.5 mg/dL (0.2-1.0); CO2 27.5 mmol/L (21.0-32.0); CREATININE 1.7 mg/dL (0.70-1.30); Calcium 9.5 mg/dL (8.5-10.1); Chloride 100 mmol/L (98-107); Estimated GFR 39.26 (mL/min/1.73m2); Glucose 96 mg/dL (74-106); Magnesium 2.1 mg/dL (1.8-2.4); Potassium 4.4 mmol/L (3.5-5.1); Sodium 133 mmol/L (136-145); TSH (W/Ref FT4) 0.73 uIU/mL (0.36-3.74); Total Protein 6.8 g/dL (6.4-8.2); Troponin I < 50 ng/L (<or=60)
--- NOTE | 2022-09-02 16:53 | ED.GENADUL_ITS ---
Discharge Plan Disposition Patient Disposition: Home Condition: Stable Discharge Details Clinical Impression: Generalized weakness, Palpitations Primary Care Provider: Umesh Covarrubias ED Provider: Valentino Almodovar Home Meds and New Rx's Prescriptions: Continued aspirin 81 mg capsule 81 mg PO DAILY Hold Instructions: Home Medication placed on hold at Doctor's office lorazepam 1 mg tablet 1 mg PO QHS PRN (Reason: insomnia/back spasms) Qty: 30 2RF losartan 50 mg tablet 50 mg PO DAILY Qty: 90 3RF rosuvastatin 20 mg tablet 20 mg PO DAILY Qty: 90 3RF pantoprazole 40 mg tablet,delayed release (DR/EC) 40 mg PO BID Qty: 180 3RF triamcinolone acetonide [Kenalog] 0.147 mg/gram aerosol 1 spray topical BID PRN (Reason: itching) Qty: 63 0RF lidocaine [Lidoderm] 5 % adhesive patch,medicated 1 patch topical DAILY PRNQty: 15 0RF Rx Instructions: leave on most painful area for up to 12 hrs vitamin B complex Capsule 1 cap PO DAILY coenzyme Q10 [Co Q-10] 100 mg Capsule 300 mg PO DAILY Hold Instructions: Home Medication placed on hold at Doctor's office lycopene 10 mg Capsule 10 mg PO DAILY Hold Instructions: Home Medication placed on hold at Doctor's office cholecalciferol (vitamin D3) [Vitamin D3] 2,000 unit Tablet 2,000 unit PO DAILY Hold Instructions: Home Medication placed on hold at Doctor's office calcium citrate 760 mg calcium /3.5 gram Granules 760 mg PO DAILY Hold Instructions: Home Medication placed on hold at Doctor's office Edgewood 3-6-9 1,200 mg Capsule 1 cap PO DAILY Hold Instructions: Home Medication placed on hold at Doctor's office magnesium oxide 400 mg (241.3 mg magnesium) Tablet 400 mg PO BID Qty: 0 0RF Hold Instructions: Home Medication placed on hold at Doctor's office No Action hawthorn 500 mg capsule PO DAILY Hold Instructions: Home Medication placed on hold at Doctor's office Horse Scooter PO DAILY burdock root 500 mg capsule PO Rx Instructions: 3x day slippery elm bark 400 mg capsule PO Rx Instructions: 3x /day dgl lozenges PO Konsyl 6 mg powder Not Applicable (DME) mucus clearing device Device See Rx Instructions .ROUTE .MEDSUPPLY Qty: 1 Rx Instructions: BID Probiotic 3 billion cell Capsule 3,000 mmu cells PO DAILY Discharge Instructions Instructions: Heart Palpitations (ED), Weakness (ED) Additional Instructions: Please follow-up with your primary care physician and 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 Call tomorrow. Additional outpatient diagnostic testing may be necessary for persistent symptoms. Return to the emergency department immediately for any worsening or new con cerning symptoms. Referrals: Umesh Covarrubias DO [Primary Care Provider] - Discharge Data Discharge Date/Time-TO BE ENTERED AT DEPARTURE: 09/02/22 17:02 Medical Decision Making 82-year-old male with multiple medical problems including history of aortic valve repair, atherosclerosis of left carotid artery, CVA, chronic kidney disease, hypertension, here with fatigue over the past few days and associated intermittent pounding palpitations when laying flat at times. Patient is hemodynamically stable with no arrhythmia noted on unit leader. EKG was reviewed and interpreted by me: Please report, single PVC noted. Labs were performed to assess for electrolyte abnormalities, anemia, or ACS. Labs are nondiagnostic for acute issue. He does have chronic kidney disease with creatinine of 1.7. Troponin is negative. All results were discussed with the patient. He is remained stable here during his emergency department visit. Plan for close outpatient follow-up with his PCP. I did discuss him need for additional outpatient diagnostics including potentially cardiac echo should symptoms persist. He was encouraged to return immediately should any worsening or new concerning symptoms. Usual customary discharge instructions were reviewed with the patient. Lab Data Lab results reviewed: Yes I reviewed the patient's lab results. Labs: Laboratory Tests Range/Units 09/02/22 09/02/22 15:15 15:15 WBC (4.4-10.8) 10^3/uL 9.41 RBC (4.36-5.78) 10^6/uL 4.81 Hgb (13.5-17.5) g/dL 15.5 Hct (40.0-50.0) % 45.4 MCV (80-95) fL 94 MCH (27.0-33.0) pg 32.2 MCHC (32.0-36.0) % 34.1 RDW (11.8-14.1) % 14.1 Plt Count (130-400) 10^3/uL 194 MPV (8.0-11.0) fL 10.2 Immature Gran % 0.5 Neutrophils % 62.0 Lymphocytes % 25.6 Monocytes % 7.7 Eosinophils % 3.7 Basophils % 0.5 Nucleated RBC % (0.0-0.3) % 0.0 Absolute Neutrophils (1.2-6.7) 10^3/uL 5.83 Absolute Lymphocytes (1.2-3.4) 10^3/uL 2.41 Absolute Monocytes (0.1-0.8) 10^3/uL 0.72 Absolute Eosinophils (0.0-0.7) 10^3/uL 0.35 Absolute Basophils (0.0-0.2) 10^3/uL 0.05 Sodium (136-145) mmol/L 133 L Potassium (3.5-5.1) mmol/L 4.4 Chloride (98-107) mmol/L 100 Carbon Dioxide (21.0-32.0) mmol/L 27.5 Anion Gap (3-11) mmol/L 5.5 BUN (7-18) mg/dL 25 H Creatinine (0.70-1.30) mg/dL 1.7 H Est GFR (CKD-EPI 2020) (mL/min/1.73m2) 39.26 Glucose (74-106) mg/dL 96 Calcium (8.5-10.1) mg/dL 9.5 Magnesium (1.8-2.4) mg/dL 2.1 Total Bilirubin (0.2-1.0) mg/dL 0.5 AST (15-37) U/L 31 ALT (16-63) U/L 40 Alkaline Phosphatase (46-116) U/L 61 Troponin I (<or=60) ng/L < 50 Total Protein (6.4-8.2) g/dL 6.8 Albumin (3.4-5.0) g/dL 4.0 TSH (0.36-3.74) uIU/mL 0.73 HPI General Mode of arrival: ambulatory . Date/Time Provider Initiated Documentation: 09/02/22 15:09 . Limitations to Documentation: no limitations . Information obtained by: patient . HPI Narrative: 82-year-old male with multiple medical problems including history of aortic valve replacement, hypertension, CVA, presents with chief complaint of fatigue. Patient notes fatigue over the past 4 to 5 days. Fatigue is moderate with no modifiers. He also notes some palpitations over the past few days. He states when he lays flat sometimes he experiences a pounding sensation in his chest. Patient notes he does have difficulty sleeping at night and frequently gets up to go to the bathroom which is a chronic issue. He denies chest pain or shortness of breath. No leg swelling or calf pain. He does have chronic headaches if unchanged and has had significant neurologic work-up recently. He denies focal numbness or weakness. Related Data Home Medications Medication Instructions Recorded Confirmed calcium citrate 760 mg calcium/3.5 760 mg PO DAILY 09/03/19 09/02/22 gram oral granules cholecalciferol (vitamin D3) 50 2,000 unit PO DAILY 09/03/19 09/02/22 mcg (2,000 unit) tablet (Vitamin D3) coenzyme Q10 100 mg capsule (Co 300 mg PO DAILY 09/03/19 09/02/22 Q-10) fish, borage, flaxseed oils-omega 1 cap PO DAILY 09/03/19 09/02/22 3,6,9 comb no.1 1,200 mg capsule (Edgewood 3-6-9) lactobacillus combination no.4 3 3,000 mmu cells PO DAILY 09/03/19 09/02/22 billion cell capsule (Probiotic) lycopene 10 mg capsule 10 mg PO DAILY 09/03/19 09/02/22 vitamin B complex 1 cap PO DAILY 09/03/19 09/02/22 mucus clearing device #1 ea 03/05/20 08/05/22 hawthorn 500 mg capsule mg PO DAILY 04/26/21 08/05/22 magnesium oxide 400 mg (241.3 mg 400 mg PO BID #0 tabs 09/24/21 09/02/22 magnesium) tablet losartan 50 mg tablet 50 mg PO DAILY #90 tabs 11/22/21 09/02/22 rosuvastatin 20 mg tablet 20 mg PO DAILY #90 tabs 11/22/21 09/02/22 burdock root 500 mg capsule mg PO 12/03/21 08/05/22 dgl lozenges PO 12/03/21 08/05/22 slippery elm bark 400 mg capsule mg PO 12/03/21 08/05/22 aspirin 81 mg capsule 81 mg PO DAILY 12/05/21 09/02/22 lorazepam 1 mg tablet 1 mg PO QHS PRN insomnia/back 01/21/22 09/02/22 spasms #30 tabs Horse Scooter PO DAILY 02/27/22 08/05/22 pantoprazole 40 mg tablet,delayed 40 mg PO BID #180 tabs 03/13/22 09/02/22 release Konsyl Not Applicable 06/05/22 08/05/22 lidocaine 5 % topical patch 1 patch topical DAILY PRN #15 ea 07/18/22 09/02/22 (Lidoderm) triamcinolone acetonide 0.147 1 spray topical BID PRN itching 08/11/22 09/02/22 mg/gram topical aerosol (Kenalog) #63 grams Previous Rx's Medication Instructions Recorded magnesium oxide 400 mg (241.3 mg 400 mg PO BID #0 tabs 09/24/21 magnesium) tablet losartan 50 mg tablet 50 mg PO DAILY #90 tabs 11/22/21 rosuvastatin 20 mg tablet 20 mg PO DAILY #90 tabs 11/22/21 lorazepam 1 mg tablet 1 mg PO QHS PRN insomnia/back 01/21/22 spasms #30 tabs pantoprazole 40 mg tablet,delayed 40 mg PO BID #180 tabs 03/13/22 release lidocaine 5 % topical patch 1 patch topical DAILY PRN #15 ea 07/18/22 (Lidoderm) triamcinolone acetonide 0.147 1 spray topical BID PRN itching 08/11/22 mg/gram topical aerosol (Kenalog) #63 grams Allergies Allergy/AdvReac Type Severity Reaction Status Date / Time metronidazole Allergy Intermediate Skin Rash Verified 09/02/22 15:24 sulfamethoxazole Allergy turns red Verified 09/02/22 15:24 [From Bactrim] trimethoprim [From Bactrim] Allergy turns red Verified 09/02/22 15:24 ropinirole AdvReac Severe insomina, Verified 09/02/22 15:24 weakness, intense fatigue General Stated Complaint: Palpitatns ANIBAL: 3 Review of Systems All systems reviewed & are unremarkable except as noted in HPI and below Constitutional Constitutional: Denies fever(s) and Reports weakness Cardiovascular Cardiovascular: Denies chest pain Respiratory Respiratory: Denies cough Neurologic Neurologic: Reports weakness PFSH All Active Problems (Updated 09/02/22 @ 16:54 by Valentino Almodovar MD) Generalized weakness (Acute) Palpitations (Acute) Conductive hearing loss, external ear (Acute) Impacted cerumen, bilateral (Acute) Left hip pain (Acute) Corns and callosities (Acute) Nail dystrophy (Acute) History of vascular surgery (Chronic) Stenting of L internal carotid artery, 06/28, [facility], started plavix Eczema (Acute) Arteriosclerosis of left carotid artery (Acute) 05/22/22 Vascular Stenosis of carotid artery (Acute) 05/22/22 [facility] Vascular History of hemoptysis (Acute) Onychomycosis (Acute 04/23/22) 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 Lorazepam tx Acute dyspnea (Acute) H/O endoscopy (Chronic) 11/2020 Sinusitis, chronic 11/04/21 LA low grade esophageal ulcer, 2 cm Hiatal Hernia Obstructive sleep apnea (Chronic ~2017) Moderate-PAP therapy Hip osteoarthritis (Acute) Cough (Acute) per Nikki 02/10/2020 started Breo inhaler 03/02/20 F/U with Dr Jordan, next ov 04/06/20 CKD (chronic kidney disease) (Acute) White coat syndrome with hypertension (Chronic) Tests in the 120s at home Chronic cough (Acute) Chronic pansinusitis (Acute) Headache (Acute) Depressive disorder (Acute) Iron deficiency anemia (Acute) Diverticulitis (Chronic) GERD (gastroesophageal reflux disease) (Chronic) Diverticular disease of colon (Acute) Prostate cancer (Chronic) Aortic valve disorder (Acute) Cerebrovascular disease (Acute) Malaise and fatigue (Acute) Dizziness and giddiness (Acute) Peripheral vascular disease (Chronic) Hypercholesterolemia (Acute) HTN (hypertension) (Chronic) Medical History History of pyloric stenosis as a child Surgical History H/O aortic valve replacement H/O colonoscopy (~11/04/21) 11/04/21 Dr Tyler H/O hemorrhoidectomy H/O shoulder surgery History of colon resection History of hernia repair History of tonsillectomy Family History Father Substance abuse Tuberculosis Mother Breast cancer Heart disease Sister Cancer Heart disease Hypertension Social History Smoking/Tobacco Use Status: Former Tobacco Use Quit Date: 09/07/1964 Pack- years: 40 Tobacco: How many years used: 14 Smoking risk assessment performed?: Yes Alcohol Intake: current Alcohol Intake frequency: holidays/special occasions only Alcohol type: wine Drug use: Never Substance use type: does not use Adopted: No Caregiver/Support person: No Foster care: No Household members: spouse Housing: house Number of Children: 1 Education Level: college Do you need help understanding health information?: Never 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 Pets and animals: No Sexually active: Yes Do you think of yourself as: straight/heterosexual Current gender identity: male What is your relationship status?: How often do you talk on the phone with friends or family?: three or more times per week How often do you get together with friends or relatives?: never How often do you attend samaritan or sabianism services?: decline to answer Do you belong to any clubs or organized social groups?: no Panel score (0-1 are the most socially isolated patients): 2 What type of physical activity do you participate in: other Details: [employer] 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 Duration: 60-90 minutes/day Frequency: 1-2 times per week Seatbelt use: always Drive intox or ride w/intox local 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: No Working smoke detector in home: Yes Carbon monox detector in home: Yes Do you feel safe at home: Yes Do you feel safe in your relationship?: Yes Course Vital Signs Vital signs: Vital Signs Temperature 36.7 C 09/02/22 15:03 Pulse 74 09/02/22 15:03 Respiratory Rate 18 09/02/22 15:03 Blood Pressure 154/62 H 09/02/22 15:03 Pulse Oximetry 98 09/02/22 15:03 Temperature 36.7 C 09/02/22 15:03 Temperature Source Tympanic 09/02/22 15:03 Pulse 72 09/02/22 15:46 Pulse 76 09/02/22 15:47 Respiratory Rate 20 09/02/22 15:47 Respiratory Effort Non-Labored 09/02/22 15:29 Blood Pressure 154/79 H 09/02/22 15:46 Blood Pressure Mean 95 09/02/22 15:46 Blood Pressure Position Sitting 09/02/22 15:03 Pulse Oximetry 95 09/02/22 15:47 Oxygen Delivery Method Room Air 09/02/22 15:03 Oxygen Flow Rate 0 09/02/22 15:03 Pain Level 0 09/02/22 15:03 Lab/Test Results Lab/Test Results: Laboratory Tests Range/Units 09/02/22 09/02/22 15:15 15:15 WBC (4.4-10.8) 10^3/uL 9.41 RBC (4.36-5.78) 10^6/uL 4.81 Hgb (13.5-17.5) g/dL 15.5 Hct (40.0-50.0) % 45.4 MCV (80-95) fL 94 MCH (27.0-33.0) pg 32.2 MCHC (32.0-36.0) % 34.1 RDW (11.8-14.1) % 14.1 Plt Count (130-400) 10^3/uL 194 MPV (8.0-11.0) fL 10.2 Immature Gran % 0.5 Neutrophils % 62.0 Lymphocytes % 25.6 Monocytes % 7.7 Eosinophils % 3.7 Basophils % 0.5 Nucleated RBC % (0.0-0.3) % 0.0 Absolute Neutrophils (1.2-6.7) 10^3/uL 5.83 Absolute Lymphocytes (1.2-3.4) 10^3/uL 2.41 Absolute Monocytes (0.1-0.8) 10^3/uL 0.72 Absolute Eosinophils (0.0-0.7) 10^3/uL 0.35 Absolute Basophils (0.0-0.2) 10^3/uL 0.05 Sodium (136-145) mmol/L 133 L Potassium (3.5-5.1) mmol/L 4.4 Chloride (98-107) mmol/L 100 Carbon Dioxide (21.0-32.0) mmol/L 27.5 Anion Gap (3-11) mmol/L 5.5 BUN (7-18) mg/dL 25 H Creatinine (0.70-1.30) mg/dL 1.7 H Est GFR (CKD-EPI 2020) (mL/min/1.73m2) 39.26 Glucose (74-106) mg/dL 96 Calcium (8.5-10.1) mg/dL 9.5 Magnesium (1.8-2.4) mg/dL 2.1 Total Bilirubin (0.2-1.0) mg/dL 0.5 AST (15-37) U/L 31 ALT (16-63) U/L 40 Alkaline Phosphatase (46-116) U/L 61 Troponin I (<or=60) ng/L < 50 Total Protein (6.4-8.2) g/dL 6.8 Albumin (3.4-5.0) g/dL 4.0 TSH (0.36-3.74) uIU/mL 0.73 PAWSS Have you Been Recently Intoxicated or Drunk Within the Last 30 days?: No Have you Ever Experienced Previous Episodes of Alcohol Withdrawal?: No Have you ever Experienced Withdrawal Seizures?: No Have you ever Experienced Delirium Tremens(DT)s?: No Have you ever undergone Alcohol Rehabilitation Treatment (i.e, inpt ot outpatient treatment programs)?: No Have you ever Experienced Blackouts?: No Have you ever Combined Alcohol with other Downers within the last 90 days?: No Have you ever Combined Alcohol with any other Substance of Abuse during the last 90 days?: No Positive Blood Alcohol level on Presentation? [PCS.BAL]: No Evidence of Increased Autonomic Activity (i.e. HR>120, tremor, sweating, agitati on, nausea)?: No Result: 0
--- NOTE | 2022-09-02 20:57 | NUR.NOTE ---
Referral faxed to [facility] to f/u early next week for fatigue, palpitations.Nursing Note:
== END 2022-09-02 17:02 | disposition home or self-care (01) ==
PROVIDERS: Emergency Provider Student in an Organized Health Care Education/Training Program; PCP Family Medicine
DX: R53.1 Weakness (principal); R00.2 Palpitations
CPT/HCPCS: 80053; 93005; 99283; 83735; 84443; 84484; 85025; 93010; 99284

== ENCOUNTER 2022-09-16 13:10 | Outpatient (CLI) | payer MEDICARE, OTHER, SELFPAY | END 2022-09-16 13:11 | disposition home or self-care (01) | LOC: PUVA 13:11 | PROVIDERS: PCP Family Medicine; Visit Provider Dermatology | DX: L30.8 Other specified dermatitis (principal) | CPT/HCPCS: 96900 ==

== ENCOUNTER 2022-09-18 02:52 | Outpatient (CLI) | payer MEDICARE, OTHER, SELFPAY ==
--- NOTE | 2022-09-18 15:11 | DI.US_ITS ---
APPROVED REPORT EXAM: Comprehensive 2D, Doppler, and color-flow Echocardiogram Patient Location: Out-Patient [facility] Consultant: Nery Murray RDCS (AE) Indications: Aortic valve replacement, Bioprosthetic, Worsening exercise tolerance, murmur Other Information Study Quality: Fair. Technically limited study due to body habitus. Conclusion Normal left ventricular wall thickness and chamber size. Estimated ejection fraction is 60%. Wall m otion is normal Normal right ventricular size and systolic function Both atria are normal in size There is a bioprosthetic aortic valve. Mean gradient is 12. There is trace aortic regurgitation Mitral annular calcification, trace mitral regurgitation Normal tricuspid valve with mild regurgitation. Estimated right ventricular systolic pressure is nor mal at 28 mmHg Wall motion Left Ventricle Technically limited parasternal views. Normal left ventricular chamber size The overall left ventricu lar systolic function appears normal. Normal left ventricular wall thickness There is normal LV segme ntal wall motion. There is no ventricular septal defect visualized. LVEF is 60%. Right Ventricle The right ventricle is normal size. The right ventricular systolic function is normal. The RVSP is 28 .1_ mmHg. Atria The left atrium size is normal. The right atrium size is normal. The interatrial septum is intact wit h no evidence for an atrial septal defect. Aortic Valve Peak aortic valve gradient is 24.4mmHg. Highest mean aortic valve gradient is 12.2mmHg. Calculated AV A by the continuity equation is 1.55cm2. Trace aortic regurgitation. Bioprosthetic aortic valve is pr esent. Mitral Valve Mild to moderate mitral annular calcification. No evidence of mitral valve stenosis. Trace mitral re gurgitation. Tricuspid Valve The tricuspid valve is normal in structure. There is no tricuspid valve stenosis. Mild tricuspid regu rgitation. Pulmonic Valve The pulmonary valve is normal in structure. There is no pulmonic valvular stenosis. Mild pulmonic reg urgitation. Great Vessels The aortic root is normal in size. The ascending aorta is normal in size. Aortic arch is not well vis ualized. IVC is normal in size and collapses >50% with inspiration. Pericardium There is no pericardial effusion. 2D Dimensions Ao Root d 2.35 cm M: 3.1 - 3.7 LV Vol A2C d MOD 66.2 mL RA Area A4C 12.58 cm2 LV Vol A4C d MOD 89.4 mL RA Vol/ BSA A4C s A-L 17.3 mL/m2 LA vol/ BSA A2C s A-L 26.9 mL/m2 Ao Asc Diam d 3.33 cm M: 2.6 - 3.4 LA vol/ BSA A4C s A-L 23.6 mL/m2 LVEF (Bowden's) 56.13 % M: 52 - 72 LA Vol/ BSA Biplane s A-L 27.3 mL/m2 LV Volume 60.61 mL M: 62 - 150 LA Area A4C s MOD 15.22 cm2 LV Volume Index 34.63 mL/m2 M: 34 - 74 LA Area A2C s MOD 17.64 cm2 LV Vol Biplane MOD 77.2 mL LV EF A4C MOD 55.9 % LV EF A2C MOD 57.9 % LV EF Biplane MOD 56.1 % SV 43.30 mL SV Index 24.74 mL/m2 M-Mode TAPSE 1.70 cm (M/F) >1.7 LV Diastology MV E' medial 0.077 (>0.07 m/s) E/A Ratio 0.9 LV E/e MED 10.70 (<14) MV E Vmax 0.83 (0.4-1.3 m/s) MV E' lateral 0.099 (>0.1 m/s) MV A Vmax 0.95 (0.4-1.3 m/s) LV E/e LAT 8.35 (<14) MV E/A Ratio 0.83 MV E/E' medial 10.72 MV E/E' lateral 8.38 Aortic Valve LVOT Area 3.03 cm2 AoV Area Vmax 1.55 cm2 LVOT Vmax 1.26 m/s AoV Area/ BSA (Vmax) 0.88 cm2/m2 LVOT Mean Michael. 0.82 m/s MP Mean Michael. 1.53 cm2 LVOT Peak Grad 6.3 mmHg MP Mean Michael. Index 0.87 cm2/m2 LVOT Mean Grad 3.2 mmHg LVOT VTI 0.247 m LVOT Diam s 1.95 cm AoV Vmax 2.47 m/s Velocity Ratio 0.51 AoV Mean Michael. 1.63 m/s AoV Peak Grad 24.4 mmHg LVOT SV 74.93 mL AoV Mean Grad 12.2 mmHg AoV VTI 0.435 m AoV Area VTI 1.72 cm2 AoV Area/ BSA (VTI) 0.98 cm/m2 Mitral Valve MV DT 319 (160-240 msec) MV PHT 93 msec MV Area PHT 2.38 cm2 MV VTI 0.304 m MV Area VTI 2.47 (4.0-6.0 cm2) Pulmonary Valve PV Vmax 1.04 (0.5-1.5 m/s) RVOT Peak Gr. 1.28 mmHg PV Peak Grad 4.3 mmHg RVOT Mean Gr. 0.80 mmHg PV Mean Grad 3.0 mmHg RVOT VTI 0.126 m PV VTI 0.235 m RVOT Vmax 0.57 m/s Tricuspid Valve TR Peak Grad 25.1 mmHg TR Vmax 2.51 m/s RA Pressure 3.00 mmHg RVSP (TR) 28.1 mmHg
== END 2022-09-18 03:12 ==
LOC: DI 02:52
PROVIDERS: PCP Family Medicine; Visit Provider Family Medicine
DX: Z95.4 Presence of other heart-valve replacement (principal); R01.1 Cardiac murmur, unspecified
CPT/HCPCS: 93306

== ENCOUNTER → 2022-09-22 13:17 | Outpatient (BNVA) | payer MEDICARE, OTHER, SELFPAY | PROVIDERS: PCP Family Medicine; Referring Provider Family Medicine; Visit Provider Internal Medicine Cardiovascular Disease | DX: R00.2 Palpitations (principal); Z95.2 Presence of prosthetic heart valve; R53.83 Other fatigue; R42 Dizziness and giddiness | CPT/HCPCS: 99214 ==

== ENCOUNTER 2022-09-23 07:51 | Outpatient (CLI) | payer MEDICARE, OTHER, SELFPAY | END 2022-09-23 07:52 | disposition home or self-care (01) | LOC: PUVA 07:57 | PROVIDERS: PCP Family Medicine; Visit Provider Dermatology | DX: L30.8 Other specified dermatitis (principal) | CPT/HCPCS: 96900 ==

== ENCOUNTER 2022-09-26 13:42 | Outpatient (CLI) | payer MEDICARE, OTHER, SELFPAY | END 2022-09-26 13:43 | disposition home or self-care (01) | LOC: PUVA 13:42 | PROVIDERS: PCP Family Medicine; Visit Provider Dermatology | DX: L30.8 Other specified dermatitis (principal) | CPT/HCPCS: 96900 ==

== ENCOUNTER 2022-09-30 11:19 | Outpatient (CLI) | payer MEDICARE, OTHER, SELFPAY | END 2022-09-30 11:20 | disposition home or self-care (01) | LOC: PUVA 10-02 11:20 | PROVIDERS: PCP Family Medicine; Visit Provider Dermatology | DX: L30.8 Other specified dermatitis (principal) | CPT/HCPCS: 96900 ==

== ENCOUNTER 2022-10-03 07:50 | Outpatient (CLI) | payer MEDICARE, OTHER, SELFPAY | END 2022-10-03 07:51 | disposition home or self-care (01) | LOC: PUVA 07:50 | PROVIDERS: PCP Family Medicine; Visit Provider Dermatology | DX: L30.8 Other specified dermatitis (principal) | CPT/HCPCS: 96900 ==

== ENCOUNTER 2022-10-07 08:02 | Outpatient (CLI) | payer MEDICARE, OTHER, SELFPAY | END 2022-10-07 08:03 | disposition home or self-care (01) | LOC: PUVA 08:02 | PROVIDERS: PCP Family Medicine; Visit Provider Dermatology | DX: L30.8 Other specified dermatitis (principal) | CPT/HCPCS: 96900 ==

== ENCOUNTER 2022-10-10 12:51 | Outpatient (CLI) | payer MEDICARE, OTHER, SELFPAY | END 2022-10-10 12:52 | disposition home or self-care (01) | LOC: PUVA 12:51 | PROVIDERS: PCP Family Medicine; Visit Provider Dermatology | DX: L30.8 Other specified dermatitis (principal) | CPT/HCPCS: 96900 ==

== ENCOUNTER 2022-10-17 13:07 | Outpatient (CLI) | payer MEDICARE, OTHER, SELFPAY | END 2022-10-17 13:08 | disposition home or self-care (01) | LOC: PUVA 13:07 | PROVIDERS: PCP Family Medicine; Visit Provider Dermatology | DX: L30.8 Other specified dermatitis (principal) | CPT/HCPCS: 96900 ==

== ENCOUNTER 2022-10-21 13:25 | Outpatient (CLI) | payer MEDICARE, OTHER, SELFPAY | END 2022-10-21 13:26 | disposition home or self-care (01) | LOC: PUVA 13:26 | PROVIDERS: PCP Family Medicine; Visit Provider Dermatology | DX: L30.8 Other specified dermatitis (principal) | CPT/HCPCS: 96900 ==

== ENCOUNTER 2022-10-28 10:14 | Outpatient (CLI) | payer MEDICARE, OTHER, SELFPAY | END 2022-10-28 10:15 | disposition home or self-care (01) | LOC: PUVA 10:16 | PROVIDERS: PCP Family Medicine; Visit Provider Dermatology | DX: L30.8 Other specified dermatitis (principal) | CPT/HCPCS: 96900 ==

== ENCOUNTER 2022-11-07 13:48 | Outpatient (CLI) | payer MEDICARE, OTHER, SELFPAY | END 2022-11-07 13:49 | disposition home or self-care (01) | LOC: PUVA 13:48 | PROVIDERS: PCP Family Medicine; Visit Provider Dermatology | DX: L30.8 Other specified dermatitis (principal) | CPT/HCPCS: 93227; 96900; 93225 ==

== ENCOUNTER 2022-11-07 14:09 | Outpatient (RCR) | payer MEDICARE, OTHER, SELFPAY ==
--- NOTE | 2022-11-07 14:45 | HOLTER_ITS ---
APPROVED REPORT Conclusion This is a Holter monitor ordered for palpitations Rhythm throughout was sinus with an average heart rate of 75. Minimum was 62, maximum 96 There were rare ventricular ectopic beats There were very rare atrial premature beats There was one self-limited atrial run 4 beats in duration There was no atrial fibrillation, no high-grade AV block, no pauses greater than 3 seconds
== END 2022-12-05 23:59 | disposition home or self-care (01) ==
LOC: CARDOPNVT 14:09
PROVIDERS: PCP Family Medicine; Visit Provider Internal Medicine Cardiovascular Disease
DX: R00.2 Palpitations (principal)
CPT/HCPCS: 93227; 93225; 93226

== ENCOUNTER 2022-11-11 13:30 | Outpatient (CLI) | payer MEDICARE, OTHER, SELFPAY | END 2022-11-11 13:31 | disposition home or self-care (01) | LOC: PUVA 13:53 | PROVIDERS: PCP Family Medicine; Visit Provider Dermatology | DX: L30.8 Other specified dermatitis (principal) | CPT/HCPCS: 96900 ==

== ENCOUNTER 2022-11-21 11:43 | Outpatient (CLI) | payer MEDICARE, OTHER, SELFPAY | END 2022-11-21 11:44 | disposition home or self-care (01) | LOC: PUVA 11:43 | PROVIDERS: PCP Family Medicine; Visit Provider Dermatology | DX: L30.8 Other specified dermatitis (principal) | CPT/HCPCS: 96900 ==

== ENCOUNTER 2022-12-09 13:18 | Outpatient (CLI) | payer MEDICARE, OTHER, SELFPAY | END 2022-12-09 13:19 | disposition home or self-care (01) | LOC: PUVA 13:18 | PROVIDERS: PCP Family Medicine; Visit Provider Dermatology | DX: L40.9 Psoriasis, unspecified (principal) | CPT/HCPCS: 96900 ==

== ENCOUNTER 2022-12-12 13:49 | Outpatient (CLI) | payer MEDICARE, OTHER, SELFPAY | END 2022-12-12 13:50 | disposition home or self-care (01) | LOC: PUVA 13:49 | PROVIDERS: PCP Family Medicine; Visit Provider Dermatology | DX: L40.9 Psoriasis, unspecified (principal) | CPT/HCPCS: 96900 ==

== ENCOUNTER 2022-12-13 13:56 | Emergency (ER) | payer MEDICARE, OTHER, SELFPAY ==
[2022-12-13 14:01] VITALS: BP 135/64; PULSE 79; RESP 20; TEMP 36.9; O2SAT 98
--- NOTE | 2022-12-13 15:00 | DI.CT_ITS ---
Exam(s) CT ABDOMEN PELVIS W EXAM: CT ABDOMEN PELVIS W CLINICAL HISTORY: LLQ pain, hx of colectomy and divertic TECHNIQUE: Imaging Protocol: Axial computed tomography images with coronal and sagittal reformatted images were created and reviewed CONTRAST MATERIAL: Intravenous: Omnipaque 350 Contrast volume:75 mL Oral: No COMPARISON: CT CT ABDOMEN PELVIS W from 07/18/2022 FINDINGS: ABDOMEN: Lung Bases: There is atelectasis in the lung bases. Liver: Normal density. No measurable mass. Portal, Superior Mesenteric, and Splenic Veins: Unremarkable. Gallbladder and Biliary Tract: No radiodense calculus or dilation. Pancreas: Normal density, no abnormal calcifications or inflammatory process. Spleen: Normal. Adrenals: No masses seen. Kidneys: Normal size, contour and axis. No radiodense stones or obstructive uropathy. No masses seen. Stable mild bilateral perinephric edema. Abdominal Aorta: Abdominal portion non-dilated. Atherosclerosis. Bowel: There is diverticulosis in the colon but no evidence of acute diverticulitis. There is a mode rate amount of stool throughout the colon which may represent constipation. Anastomotic sutures are seen in the distal sigmoid colon. There is no evidence of bowel obstruction or bowel wall thickening . No evidence of appendicitis. Peritoneal Cavity: No ascites, collection or mesenteric inflammatory response. No free air. Lymph Nodes: Within normal limits. Bones: Within normal limits for the patient's age. Soft Tissues: There is a small fat containing umbilical hernia. PELVIS: Bladder: Symmetric distention, no gross wall thickening. Reproductive Organs: The prostate gland is enlarged. Lymph Nodes: Within normal limits. Bones: Within normal limits for the patient's age. IMPRESSION: No acute abdominal or pelvic process. RADIATION DOSE DELIVERED: 999.59mGy.cm Total DLP DATA REPOSITORY: All CT scans at this facility are submitted to the National Radiology Data Registry (NRDR) Dose Index Registry (DIR) with the [employer] ([employer]). RADIATION OPTIMIZATION: All CT scans at this facility use at least one of these dose optimization te chniques: automated exposure control; mA and/or kV adjustment per patient size (includes targeted exa ms where dose is matched to clinical indication); or iterative reconstruction.
--- NOTE | 2022-12-13 15:37 | W.ED.GENAD ---
Discharge Plan Disposition Patient Disposition: Home Discharge Details Clinical Impression: Abdominal pain Primary Care Provider: Umesh Covarrubias ED Provider: Estefany Mark Home Meds and New Rx's Prescriptions: Continued hawthorn 500 mg capsule 500 mg PO DAILY Hold Instructions: Home Medication placed on hold at Doctor's office Shana Helms See Rx Instructions .ROUTE .COMPLEX Rx Instructions: As Directed losartan 50 mg tablet 50 mg PO DAILY Rx Instructions: pt stopped and then restarted this me on his own 10/13/21 cc lorazepam 1 mg tablet 1 mg PO QHS PRN (Reason: insomnia/back spasms) Qty: 30 2RF aspirin 81 mg capsule 81 mg PO DAILY Hold Instructions: Home Medication placed on hold at Doctor's office burdock root 500 mg capsule 500 mg PO DAILY slippery elm bark 400 mg capsule 400 mg PO BID Rx Instructions: 3x /day dgl lozenges See Rx Instructions .ROUTE .COMPLEX Rx Instructions: As directed Konsyl 6 mg powder 6 mg PO DAILY (DME) mucus clearing device Device See Rx Instructions .ROUTE .MEDSUPPLY Qty: 1 Rx Instructions: BID pantoprazole 40 mg tablet,delayed release (DR/EC) 40 mg PO BID Qty: 180 3RF triamcinolone acetonide [Kenalog] 0.147 mg/gram aerosol 1 spray topical BID PRN (Reason: itching) Qty: 63 0RF rosuvastatin 20 mg tablet See Rx Instructions .ROUTE .COMPLEX Qty: 90 3RF Dose Instruction: TAKE 1 TABLET DAILY Rx Instructions: TAKE 1 TABLET DAILY lidocaine [Lidoderm] 5 % adhesive patch,medicated 1 patch topical DAILY PRNQty: 15 0RF Rx Instructions: leave on most painful area for up to 12 hrs vitamin B complex Capsule 1 cap PO DAILY coenzyme Q10 [Co Q-10] 100 mg Capsule 300 mg PO DAILY Hold Instructions: Home Medication placed on hold at Doctor's office lycopene 10 mg Capsule 10 mg PO DAILY Hold Instructions: Home Medication placed on hold at Doctor's office cholecalciferol (vitamin D3) [Vitamin D3] 2,000 unit Tablet 2,000 unit PO DAILY Hold Instructions: Home Medication placed on hold at Doctor's office calcium citrate 760 mg calcium /3.5 gram Granules 760 mg PO DAILY Hold Instructions: Home Medication placed on hold at Doctor's office Probiotic 3 billion cell Capsule 3,000 mmu cells PO DAILY [place]verness 3-6-9 1,200 mg Capsule 1 cap PO DAILY Hold Instructions: Home Medication placed on hold at Doctor's office magnesium oxide 400 mg (241.3 mg magnesium) Tablet 400 mg PO BID Qty: 0 0RF Hold Instructions: Home Medication placed on hold at Doctor's office Discharge Instructions Instructions: Constipation (ED), Abdominal Pain (ED) Additional Instructions: At this time CT scan shows no evidence for diverticulitis. Labs are largely unremarkable, no evidence for infection, follow up with primary care provider in 3-5 days. Return to ED sooner if any worsening or concerns. Increase oral fluids. Please take Tylenol with food every 4-6 hours as needed for pain and swelling. May take MiraLAX for the next couple of days to see if that helps your pain. Referrals: Umesh Covarrubias DO [Primary Care Provider] - 5 days Discharge Data Discharge Date/Time-TO BE ENTERED AT DEPARTURE: 12/13/22 18:11 Medical Decision Making <DAVID Barrios - Last Filed: 12/14/22 14:07> This 82-year-old male presents with left lower quadrant pain similar to patient's prior episodes of diverticulitis. Secondary to age and comorbidities, CT scan and diagnostic blood work was ordered for further evaluation, care will be transitioned to Selina Angeles nurse practitioner pending CT and diagnostic blood work <Estefany Mark NP - Last Filed: 12/13/22 18:54> This 82-year-old male presents with left lower quadrant pain similar to patient's prior episodes of diverticulitis. Secondary to age and comorbidities, CT scan and diagnostic blood work was ordered for further evaluation, care will be transitioned to Selina Angeles nurse practitioner pending CT and diagnostic blood work 1602: SJ: Care assumed from provider (DAVID Barrios) Please see their initial HPI, PE, and documentation. Discussed patient details and case and pending workup and disposition. Patient is hemodynamically stable, and alert and oriented. At the time of signout awaiting labs and CT abdomen pelvis. Patient has left lower quadrant abdominal pain history of diverticulitis. CBC shows no leukocytosis hemoglobin hematocrit within normal limits. Urinalysis shows no evidence of UTI. CT shows no acute abnormality, diverticulosis without acute diverticulitis. No free air no fluid collection. Will discuss results with patient discharged home. This text was generated using [employer] dictation system, please disregard any oddities of phrase or misspellings. Imaging Data Radiologic Study: Imaging: CT Scan Radiologist's impression: IMPRESSION: Post sigmoid resection change. No definite acute abnormality seen to account for symptoms. Thank you for allowing us to participate in the care of your patient. Dictated and Authenticated by: Fatoumata Harding MD HPI <DAVID Barrios - Last Filed: 12/14/22 14:07> General Date/Time Provider Initiated Documentation: 12/13/22 13:57. HPI Narrative: This 82-year-old gentleman with a history of diverticulitis presents left lower quadrant abdominal pain which started approximately 3 days prior to arrival. He states he had partial colectomy secondary to recurrent diverticulitis in the past. He denies any nausea, vomiting, diarrhea. Denies any fever or chills. He denies known exacerbating or alleviating factors. He has not had a flare since last December reportedly. Denies chest pain or shortness of breath. Related Data Home Medications Medication Instructions Recorded Confirmed calcium citrate 760 mg calcium/3.5 760 mg PO DAILY 09/03/19 12/13/22 gram oral granules cholecalciferol (vitamin D3) 50 2,000 unit PO DAILY 09/03/19 12/13/22 mcg (2,000 unit) tablet (Vitamin D3) coenzyme Q10 100 mg capsule (Co 300 mg PO DAILY 09/03/19 12/13/22 Q-10) fish, borage, flaxseed oils-omega 1 cap PO DAILY 09/03/19 12/13/22 3,6,9 comb no.1 1,200 mg capsule ([place]ness 3-6-9) lactobacillus combination no.4 3 3,000 mmu cells PO DAILY 09/03/19 12/13/22 billion cell capsule (Probiotic) lycopene 10 mg capsule 10 mg PO DAILY 09/03/19 12/13/22 vitamin B complex 1 cap PO DAILY 09/03/19 12/13/22 mucus clearing device #1 ea 03/05/20 12/12/22 hawthorn 500 mg capsule 500 mg PO DAILY 04/26/21 12/13/22 magnesium oxide 400 mg (241.3 mg 400 mg PO BID #0 tabs 09/24/21 12/13/22 magnesium) tablet burdock root 500 mg capsule 500 mg PO DAILY 12/03/21 12/13/22 dgl lozenges See Rx Instructions .Route .COMPLEX 12/03/21 12/12/22 slippery elm bark 400 mg capsule 400 mg PO BID 12/03/21 12/12/22 aspirin 81 mg capsule 81 mg PO DAILY 12/05/21 12/13/22 Horse Scooter See Rx Instructions .Route .COMPLEX 02/27/22 12/13/22 pantoprazole 40 mg tablet,delayed 40 mg PO BID #180 tabs 03/13/22 12/13/22 release Konsyl 6 mg PO DAILY 06/05/22 12/13/22 lidocaine 5 % topical patch 1 patch topical DAILY PRN #15 ea 07/18/22 12/12/22 (Lidoderm) triamcinolone acetonide 0.147 1 spray topical BID PRN itching 08/11/22 12/13/22 mg/gram topical aerosol (Kenalog) #63 grams losartan 50 mg tablet 50 mg PO DAILY 10/13/22 12/13/22 rosuvastatin 20 mg tablet See Rx Instructions .Route 11/10/22 12/13/22 .COMPLEX #90 tabs lorazepam 1 mg tablet 1 mg PO QHS PRN insomnia/back 11/17/22 12/13/22 spasms #30 tabs Previous Rx's Medication Instructions Recorded magnesium oxide 400 mg (241.3 mg 400 mg PO BID #0 tabs 09/24/21 magnesium) tablet pantoprazole 40 mg tablet,delayed 40 mg PO BID #180 tabs 03/13/22 release lidocaine 5 % topical patch 1 patch topical DAILY PRN #15 ea 07/18/22 (Lidoderm) triamcinolone acetonide 0.147 1 spray topical BID PRN itching 08/11/22 mg/gram topical aerosol (Kenalog) #63 grams rosuvastatin 20 mg tablet See Rx Instructions .Route 11/10/22 .COMPLEX #90 tabs lorazepam 1 mg tablet 1 mg PO QHS PRN insomnia/back 11/17/22 spasms #30 tabs Allergies Allergy/AdvReac Type Severity Reaction Status Date / Time metronidazole Allergy Intermediate Skin Rash Verified 12/12/22 14:17 sulfamethoxazole Allergy turns red Verified 12/12/22 14:17 [From Bactrim] trimethoprim [From Bactrim] Allergy turns red Verified 12/12/22 14:17 ropinirole AdvReac Severe insomina, Verified 12/12/22 14:17 weakness, intense fatigue zolpidem [From Ambien] AdvReac Other (See Verified 12/12/22 14:17 Comment) General Stated Complaint: Abd Prob ANIBAL: 3 PFSH <DAVID Barrios - Last Filed: 12/14/22 14:07> All Active Problems (Updated 12/13/22 @ 17:58 by Estefany Mark NP) Abdominal pain (Acute) Long-term current use of proton pump inhibitor therapy (Acute) Conductive hearing loss, external ear (Acute) Impacted cerumen, bilateral (Acute) Left hip pain (Acute) Corns and callosities (Acute) Nail dystrophy (Acute) History of vascular surgery (Chronic) Stenting of L internal carotid artery, 06/28, [facility] [place] started plavix Eczema (Acute) start narrow band UVB bid at [facility] Arteriosclerosis of left carotid artery (Acute) 05/22/22 [facility] Stenosis of carotid artery (Acute) 05/22/22 [facility] [place] History of hemoptysis (Acute) Onychomycosis (Acute 04/23/22) 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 Lorazepam tx Acute dyspnea (Acute) H/O endoscopy (Chronic) 11/2020 Sinusitis, chronic 11/04/21 [place] low grade esophageal ulcer, 2 cm Hiatal Hernia Obstructive sleep apnea (Chronic ~2017) Moderate-PAP therapy Hip osteoarthritis (Acute) Cough (Acute) per Nikki 02/10/2020 started Breo inhaler 03/02/20 F/U with Dr Jordan, next ov 04/06/20 CKD (chronic kidney disease) (Acute) White coat syndrome with hypertension (Chronic) Tests in the 120s at home Chronic cough (Acute) Chronic pansinusitis (Acute) Headache (Acute) Depressive disorder (Acute) Iron deficiency anemia (Acute) Diverticulitis (Chronic) GERD (gastroesophageal reflux disease) (Chronic) Diverticular disease of colon (Acute) Prostate cancer (Chronic) Aortic valve disorder (Acute) Cerebrovascular disease (Acute) Malaise and fatigue (Acute) Dizziness and giddiness (Acute) Peripheral vascular disease (Chronic) Hypercholesterolemia (Acute) HTN (hypertension) (Chronic) Medical History History of pyloric stenosis as a child Surgical History H/O aortic valve replacement H/O colonoscopy (~11/04/21) 11/04/21 Dr Tyler H/O hemorrhoidectomy H/O shoulder surgery History of colon resection History of hernia repair History of tonsillectomy Family History Father Substance abuse Tuberculosis Mother Breast cancer Heart disease Sister Cancer Heart disease Hypertension Social History Smoking/Tobacco Use Status: Former Tobacco Use Quit Date: 09/07/1964 Pack-years: 42 Tobacco: How many years used: 14 Smoking risk assessment performed?: Yes Alcohol Intake: current Alcohol Intake frequency: holidays/special occasions only Alcohol type: wine Drug use: Never Substance use type: does not use Adopted: No Caregiver/Support person: No Foster care: No Household members: spouse Housing: house Number of Children: 1 Education Level: college Do you need help understanding health information?: Never 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 Pets and animals: No Sexually active: Yes Do you think of yourself as: straight/heterosexual Current gender identity: male What is your relationship status?: How often do you talk on the phone with friends or family?: three or more times per week How often do you get together with friends or relatives?: never How often do you attend rastafarian or scientologist services?: decline to answer Do you belong to any clubs or organized social groups?: no Panel score (0-1 are the most socially isolated patients): 2 What type of physical activity do you participate in: other Details: 2nd Degree Shalini Rodarte Duration: 60-90 minutes/day Frequency: 1-2 times per week Seatbelt use: always Drive intox or ride w/intox motor coach driver: No Working smoke detector in home: Yes Carbon monox detector in home: Yes Do you feel safe at home: Yes Do you feel safe in your relationship?: Yes Exam <DAVID Barrios - Last Filed: 12/14/22 14:07> Const General: cooperative, comfortable and no acute distress Orientation: alert and oriented x3 Resp Effort & Inspection: normal respiratory effort Auscultation: clear to auscultation bilaterally Cardio Rate: regular rate Rhythm: regular rhythm GI Other: left lower abdominal pain Skin General skin exam: no rashes or lesions noted Neuro General: patient alert and patient oriented x3 Extrem General: normal to inspection Course <DAVID Barrios - Last Filed: 12/14/22 14:07> Vital Signs Vital signs: Vital Signs Temperature 36.9 C 12/13/22 14:01 Pulse 79 12/13/22 14:01 Respiratory Rate 20 12/13/22 14:01 Blood Pressure 135/64 12/13/22 14:01 Pulse Oximetry 98 12/13/22 14:01 Temperature 36.9 C 12/13/22 14:01 Temperature Source Oral 12/13/22 14:01 Pulse 79 12/13/22 14:01 Respiratory Rate 20 12/13/22 14:01 Respiratory Effort Normal 12/13/22 15:27 Blood Pressure 135/64 12/13/22 14:01 Blood Pressure Position Sitting 12/13/22 14:01 Pulse Oximetry 98 12/13/22 14:01 Oxygen Delivery Method Room Air 12/13/22 14:01 Oxygen Flow Rate 0 12/13/22 14:01 Pain Level 3 12/13/22 15:27 Sign Out <DAVID Barrios - Last Filed: 12/14/22 14:07> Sign Out Data: Sign Out Comment: pending labs and ct abd/pelvis Last updated by Marley Conti PA at 12/13/22 15:49 PAWSS <DAVID Barrios - Last Filed: 12/14/22 14:07> Have you Been Recently Intoxicated or Drunk Within the Last 30 days?: No Have you Ever Experienced Previous Episodes of Alcohol Withdrawal?: No Have you ever Experienced Withdrawal Seizures?: No Have you ever Experienced Delirium Tremens(DT)s?: No Have you ever undergone Alcohol Rehabilitation Treatment (i.e, inpt ot outpatient treatment programs)?: No Have you ever Experienced Blackouts?: No Have you ever Combined Alcohol with other Downers within the last 90 days?: No Have you ever Combined Alcohol with any other Substance of Abuse during the last 90 days?: No Result: 0 <Estefany Mark NP - Last Filed: 12/13/22 18:54> Result: 0
[2022-12-13 15:50] LABS: Abs Immature Grans 0.03 10^3/uL (0.0-0.06); Absolute Basophil Count 0.05 10^3/uL (0.0-0.2); Absolute Eosinophil Count 0.39 10^3/uL (0.0-0.7); Absolute Lymphocyte Count 2.22 10^3/uL (1.2-3.4); Absolute Monocyte Count 0.84 10^3/uL (0.1-0.8); Absolute Neutrophil Count 5.78 10^3/uL (1.2-6.7); Basophils % 0.5; Eosinophils % 4.2; HGB 15.7 g/dL (13.5-17.5); Immature Grans % 0.3; Lymphocytes % 23.8; MCH 31.2 pg (27.0-33.0); MCHC 33.4 % (32.0-36.0); MCV 93 fL (80-95); MPV 10.2 fL (8.0-11.0); Neutrophils % 62.2; Platelet Count 156 10^3/uL (130-400); RBC 5.04 10^6/uL (4.36-5.78); RDW 13.9 % (11.8-14.1); RDW-SD 48.3 fL; WBC 9.31 10^3/uL (4.4-10.8)
[2022-12-13 15:53] LABS: Bilirubin Negative (Negative); Blood Negative (Negative); Clarity Clear (Clear); Glucose Negative (Negative); Ketones Negative (Negative); Leukocyte Esterase Negative (Negative); Nitrite Negative (Negative); Specific Gravity 1.015 (1.005-1.025); Urobilinogen 0.2 mg/dL (Up to 0.2)
[2022-12-13 16:10] LABS: ALT 31 U/L (16-63); AST 19 U/L (15-37); Albumin 3.5 g/dL (3.4-5.0); Alkaline Phosphatase 50 U/L (46-116); Anion Gap 8.7 mmol/L (3-11); BUN 20 mg/dL (7-18); Bilirubin, Total 0.5 mg/dL (0.2-1.0); CO2 23.3 mmol/L (21.0-32.0); CREATININE 1.6 mg/dL (0.70-1.30); Calcium 9.3 mg/dL (8.5-10.1); Chloride 102 mmol/L (98-107); Estimated GFR 42.22 (mL/min/1.73m2); Glucose 97 mg/dL (74-106); Lipase 33 U/L (16-77); Potassium 4.3 mmol/L (3.5-5.1); Sodium 134 mmol/L (136-145); Total Protein 6.1 g/dL (6.4-8.2)
[2022-12-13] MEDS: Omnipaque 350 MG/ML 500 ML BTL-Imaging package IJ (16:58)
[2022-12-13] MEDS: Normal Saline - Diluent 50 ML VIAL IJ (16:59)
--- NOTE | 2022-12-13 17:43 | DI.VRAD_ITS ---
PROCEDURE INFORMATION: Exam: CT Abdomen And Pelvis With Contrast Exam date and time: 12/13/2022 4:51 PM Age: 82 years old Clinical indication: Abdominal pain; Localized; Left lower quadrant (llq); Patient HX: Llq pain, HX of colectomy and divertic TECHNIQUE: Imaging protocol: Computed tomography of the abdomen and pelvis with contrast. COMPARISON: CT ABDOMEN PELVIS W 07/18/2022 5:56 PM FINDINGS: Lungs: There is mild bibasilar atelectasis. Liver: Normal. No mass. Gallbladder and bile ducts: Normal. No calcified stones. No ductal dilation. Pancreas: Normal. No ductal dilation. Spleen: Normal. No splenomegaly. Adrenal glands: Normal. No mass. Kidneys and ureters: Mild bilateral perinephric edema is unchanged from previous study, presumed anatomic variant. Renal perfusion is symmetric without hydronephrosis or hydroureter. Stomach and bowel: Sigmoid resection changes again seen. Diverticulosis noted without acute diverticulitis. Appendix: No evidence of appendicitis. Intraperitoneal space: Unremarkable. No free air. No significant fluid collection. Vasculature: Moderate atherosclerotic change again noted in the vasculature. Lymph nodes: Unremarkable. No enlarged lymph nodes. Urinary bladder: Unremarkable as visualized. Reproductive: Unremarkable as visualized. Bones/joints: Moderate lumbar spondylosis noted. Soft tissues: Small to moderate-sized fat containing periumbilical hernia unchanged. IMPRESSION: Post sigmoid resection change. No definite acute abnormality seen to account for symptoms. Dictated and Authenticated by: Fatoumata Harding MD. Ordering:BERNADINE Roach MD
[2022-12-13 18:02] VITALS: BP 129/67; PULSE 76; O2SAT 99
[2022-12-13 18:06] VITALS: BP 129/67; PULSE 76; RESP 16; O2SAT 99
== END 2022-12-13 18:11 | disposition home or self-care (01) ==
PROVIDERS: Physician Assistant; Emergency Provider Registered Nurse Emergency; PCP Family Medicine
DX: R10.32 Left lower quadrant pain (principal); Z90.49 Acquired absence of other specified parts of digestive tract
CPT/HCPCS: 80053; 83690; 99285; 74177; 81003; 85025; 99283

== ENCOUNTER 2022-12-16 13:25 | Outpatient (CLI) | payer MEDICARE, OTHER, SELFPAY | END 2022-12-16 13:26 | disposition home or self-care (01) | LOC: PUVA 13:25 | PROVIDERS: PCP Family Medicine; Visit Provider Dermatology | DX: L40.9 Psoriasis, unspecified (principal) | CPT/HCPCS: 96900 ==

== ENCOUNTER 2022-12-22 01:07 | Emergency (ER) | payer MEDICARE, OTHER, SELFPAY ==
[2022-12-22 01:12] VITALS: BP 155/68; PULSE 78; RESP 22; TEMP 36.4; O2SAT 94
--- NOTE | 2022-12-22 01:35 | ED.GENADUL_ITS ---
Discharge Plan Disposition Patient Disposition: Home Condition: Stable Discharge Details Clinical Impression: Laceration of intraoral surface of lip, Chin laceration, Chin contusion, Dental contusion Primary Care Provider: Umesh Covarrubias ED Provider: Christine Lombardi Home Meds and New Rx's Prescriptions: Continued hawthorn 500 mg capsule 500 mg PO DAILY Hold Instructions: Home Medication placed on hold at Doctor's office Horse Scooter See Rx Instructions .ROUTE .COMPLEX Rx Instructions: As Directed losartan 50 mg tablet 50 mg PO DAILY Rx Instructions: pt stopped and then restarted this me on his own 10/13/21 cc lorazepam 1 mg tablet 1 mg PO QHS PRN (Reason: insomnia/back spasms) Qty: 30 2RF aspirin 81 mg capsule 81 mg PO DAILY Hold Instructions: Home Medication placed on hold at Doctor's office burdock root 500 mg capsule 500 mg PO DAILY slippery elm bark 400 mg capsule 400 mg PO BID Rx Instructions: 3x /day dgl lozenges See Rx Instructions .ROUTE .COMPLEX Rx Instructions: As directed Konsyl 6 mg powder 6 mg PO DAILY (DME) mucus clearing device Device See Rx Instructions .ROUTE .MEDSUPPLY Qty: 1 Rx Instructions: BID pantoprazole 40 mg tablet,delayed release (DR/EC) 40 mg PO BID Qty: 180 3RF triamcinolone acetonide [Kenalog] 0.147 mg/gram aerosol 1 spray topical BID PRN (Reason: itching) Qty: 63 0RF rosuvastatin 20 mg tablet See Rx Instructions .ROUTE .COMPLEX Qty: 90 3RF Dose Instruction: TAKE 1 TABLET DAILY Rx Instructions: TAKE 1 TABLET DAILY lidocaine [Lidoderm] 5 % adhesive patch,medicated 1 patch topical DAILY PRNQty: 15 0RF Rx Instructions: leave on most painful area for up to 12 hrs vitamin B complex Capsule 1 cap PO DAILY coenzyme Q10 [Co Q-10] 100 mg Capsule 300 mg PO DAILY Hold Instructions: Home Medication placed on hold at Doctor's office lycopene 10 mg Capsule 10 mg PO DAILY Hold Instructions: Home Medication placed on hold at Doctor's office cholecalciferol (vitamin D3) [Vitamin D3] 2,000 unit Tablet 2,000 unit PO DAILY Hold Instructions: Home Medication placed on hold at Doctor's office calcium citrate 760 mg calcium /3.5 gram Granules 760 mg PO DAILY Hold Instructions: Home Medication placed on hold at Doctor's office Probiotic 3 billion cell Capsule 3,000 mmu cells PO DAILY Gilbert 3-6-9 1,200 mg Capsule 1 cap PO DAILY Hold Instructions: Home Medication placed on hold at Doctor's office magnesium oxide 400 mg (241.3 mg magnesium) Tablet 400 mg PO BID Qty: 0 0RF Hold Instructions: Home Medication placed on hold at Doctor's office Discharge Instructions Instructions: Laceration (ED), Contusion in Adults (ED) Additional Instructions: Your imaging results are still pending and you will be notified if there are any acute abnormalities. Apply ice to the affected area several times daily for 20 minutes at a time. Drink plenty of fluids. Avoid eating foods which break into small pieces such as crackers or pretzels as they may become lodged within the laceration of your lower lip. Follow a soft diet over the next few days as hard or chewy foods may cause increased pain near a bruise below your tooth in your left lower jaw. Follow-up with your primary care doctor in 1 week. Return to the emergency department with any worsening or new concerning symptoms. Discharge Data Discharge Date/Time-TO BE ENTERED AT DEPARTURE: 12/22/22 03:43 Discharge Physician: Christine Lombardi Medical Decision Making 0120 -- 82-year-old male with a history of hypertension, hyperlipidemia, prostate cancer, GERD, depression, peripheral vascular disease and obstructive sleep apnea presents for concern for sleep apnea mouthpiece embedded within lower jaw . Upon inspection of the mouthpiece, the upper piece appears appropriately in place with no bleeding or injury. The lower mouthpiece has a metal hinge on the left and right side and the left side appears to be stuck within the mucosa on the inside of the left lower lip. I was able to move the lower lip medially and free the metal tip of the mouthpiece from the lip. Patient was then able to remove the entire upper and lower mouthpiece. Further inspection reveals the left lower canine base has mild edema and ecchymosis but tooth does not appear tender or loose. Patient does have a 1.5 cm linear superficial laceration to the left lower chin consistent likely with where he hit the headboard. He has no evidence of head trauma and has no midline cervical spine tenderness with full range of motion of his neck without pain. Will refer for CT facial bones to rule out fracture. Last tetanus 2001, will give a Boostrix. He was given a dose of Tylenol p.o. for pain. 0320 --CT reviewed and no obvious acute findings. Final report still pending. Patient and would like to go home. I discussed with patient and that I do not see any obvious acute findings on CT but I will call them if any acute abnormalities noted by virtual radiology. Patient advised to follow a soft diet over the next few days. Advised to take Tylenol as needed for pain. Advised to follow up with the primary care doctor for re-evaluation. Usual and customary return precautions given prior to discharge. Imaging resulted after patient discharge and no acute findings noted. Patient called at home and message left on answering machine notifying pt and that there were no acute findings noted on imaging. Medical Records Medical records reviewed: Yes I reviewed the patient's medical records. Imaging Data Radiologic Study: Radiologist's impression: CT Maxillofacial Without Contrast; Mandible Exam date and time: 12/22/2022 2:12 AM Age: 82 years old Clinical indication: Injury or trauma; Blunt trauma (contusions or hematomas) and laceration; Left; Not specified; Jaw and lip/oral cavity; Injury date: 12/22/22; Injury details: Fall, hit L chin on headboard, R/O. Lac L chin/lower lip, bruised L canine TECHNIQUE: Imaging protocol: Computed tomography maxillofacial without contrast. Exam focused on the mandible. Radiation optimization: All CT scans at this facility use at least one of these dose optimization techniques: automated exposure control; mA and/or kV adjustment per patient size (includes targeted exams where dose is matched to clinical indication); or iterative reconstruction. COMPARISON: MR BRAIN WO 11/01/2021 1:59 PM FINDINGS: Bones/joints: Mandible is unremarkable. No acute fracture.? Degenerative changes of the visualized cervical spine. Paranasal sinuses: Normal. No air-fluid levels. Soft tissues: Unremarkable. IMPRESSION: No acute finding. Lab Data Lab results reviewed: Yes I reviewed the patient's lab results. HPI General Mode of arrival: ambulatory . Date/Time Provider Initiated Documentation: 12/22/22 01:10 . Limitations to Documentation: no limitations . Information obtained by: patient . HPI Narrative: Patient is an 82-year-old male with a history of sleep apnea who presents with report that his mouthpiece for sleep apnea is embedded in my lower jaw after slipping and hitting his face on the headboard prior to arrival. Patient states that he has a upper and lower mouthpiece that he wears for sleep apnea for the past several years. He states he has not worn it for the past 2 months but did wear it this evening. He states he was trying to adjust himself in his bed when he slipped striking the left side of his chin on the wooden headboard. Patient denies any LOC, vomiting or neck pain. states she was afraid to attempt to remove the mouthpiece and decided to come here for evaluation. He is unsure of his tetanus status. He denies any other injuries. Related Data Home Medications Medication Instructions Recorded Confirmed calcium citrate 760 mg calcium/3.5 760 mg PO DAILY 09/03/19 12/23/22 gram oral granules cholecalciferol (vitamin D3) 50 2,000 unit PO DAILY 09/03/19 12/23/22 mcg (2,000 unit) tablet (Vitamin D3) coenzyme Q10 100 mg capsule (Co 300 mg PO DAILY 09/03/19 12/23/22 Q-10) fish, borage, flaxseed oils-omega 1 cap PO DAILY 09/03/19 12/23/22 3,6,9 comb no.1 1,200 mg capsule (Gilbert 3-6-9) lactobacillus combination no.4 3 3,000 mmu cells PO DAILY 09/03/19 12/23/22 billion cell capsule (Probiotic) lycopene 10 mg capsule 10 mg PO DAILY 09/03/19 12/23/22 vitamin B complex 1 cap PO DAILY 09/03/19 12/23/22 mucus clearing device #1 ea 03/05/20 12/23/22 hawthorn 500 mg capsule 500 mg PO DAILY 04/26/21 12/23/22 magnesium oxide 400 mg (241.3 mg 400 mg PO BID #0 tabs 09/24/21 12/23/22 magnesium) tablet burdock root 500 mg capsule 500 mg PO DAILY 12/03/21 12/23/22 dgl lozenges See Rx Instructions .Route .COMPLEX 12/03/21 12/23/22 slippery elm bark 400 mg capsule 400 mg PO BID 12/03/21 12/23/22 aspirin 81 mg capsule 81 mg PO DAILY 12/05/21 12/23/22 Horse Scooter See Rx Instructions .Route .COMPLEX 02/27/22 12/23/22 pantoprazole 40 mg tablet,delayed 40 mg PO BID #180 tabs 03/13/22 12/23/22 release Konsyl 6 mg PO DAILY 06/05/22 12/23/22 lidocaine 5 % topical patch 1 patch topical DAILY PRN #15 ea 07/18/22 12/23/22 (Lidoderm) triamcinolone acetonide 0.147 1 spray topical BID PRN itching 08/11/22 12/23/22 mg/gram topical aerosol (Kenalog) #63 grams losartan 50 mg tablet 50 mg PO DAILY 10/13/22 12/23/22 rosuvastatin 20 mg tablet See Rx Instructions .Route 11/10/22 12/23/22 .COMPLEX #90 tabs lorazepam 1 mg tablet 1 mg PO QHS PRN insomnia/back 11/17/22 12/23/22 spasms #30 tabs Previous Rx's Medication Instructions Recorded magnesium oxide 400 mg (241.3 mg 400 mg PO BID #0 tabs 09/24/21 magnesium) tablet pantoprazole 40 mg tablet,delayed 40 mg PO BID #180 tabs 03/13/22 release lidocaine 5 % topical patch 1 patch topical DAILY PRN #15 ea 07/18/22 (Lidoderm) triamcinolone acetonide 0.147 1 spray topical BID PRN itching 08/11/22 mg/gram topical aerosol (Kenalog) #63 grams rosuvastatin 20 mg tablet See Rx Instructions .Route 11/10/22 .COMPLEX #90 tabs lorazepam 1 mg tablet 1 mg PO QHS PRN insomnia/back 11/17/22 spasms #30 tabs Allergies Allergy/AdvReac Type Severity Reaction Status Date / Time metronidazole Allergy Intermediate Skin Rash Verified 12/23/22 14:04 sulfamethoxazole Allergy turns red Verified 12/23/22 14:04 [From Bactrim] trimethoprim [From Bactrim] Allergy turns red Verified 12/23/22 14:04 ropinirole AdvReac Severe insomina, Verified 12/23/22 14:04 weakness, intense fatigue zolpidem [From Ambien] AdvReac Other (See Verified 12/23/22 14:04 Comment) General Stated Complaint: DentalOral ANIBAL: 2 Review of Systems All systems reviewed & are unremarkable except as noted in HPI and below Constitutional Constitutional: Reports as per HPI, Denies chills and Denies fever(s) Eyes Eyes: Denies blurry vision ENT Ears, Nose, Mouth, and Throat: Denies dizziness, Reports mouth pain, Denies sore throat and Denies throat swelling Cardiovascular Cardiovascular: Denies chest pain and Denies dyspnea Respiratory Respiratory: Denies cough and Denies dyspnea Gastrointestinal Gastrointestinal: Denies abdominal pain, Denies diarrhea and Denies vomiting Genitourinary Genitourinary: Denies hematuria and Denies dysuria Musculoskeletal Musculoskeletal: Denies back pain and Denies numbness Integumentary/Breasts Skin/Breast: Denies lesions and Denies rash Neurologic Neurologic: Denies dizziness, Denies localized weakness and Denies numbness Allergic/Immunologic Allergic/Immunologic: Denies throat swelling PFSH All Active Problems (Updated 12/22/22 @ 03:34 by Christine Lombardi DO) Laceration of intraoral surface of lip (Acute) Chin laceration (Acute) Chin contusion (Acute) Dental contusion (Acute) Abdominal pain (Acute) Long-term current use of proton pump inhibitor therapy (Acute) Conductive hearing loss, external ear (Acute) Impacted cerumen, bilateral (Acute) Left hip pain (Acute) Corns and callosities (Acute) Nail dystrophy (Acute) History of vascular surgery (Chronic) Stenting of L internal carotid artery, 06/28, [facility] [place], started plavix Eczema (Acute) start narrow band UVB bid at [facility] Arteriosclerosis of left carotid artery (Acute) 05/22/22 [facility] Stenosis of carotid artery (Acute) 05/22/22 [facility] [place] History of hemoptysis (Acute) Onychomycosis (Acute 04/23/22) 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 Lorazepam tx Acute dyspnea (Acute) H/O endoscopy (Chronic) 11/2020 Sinusitis, chronic 11/04/21 [place] low grade esophageal ulcer, 2 cm Hiatal Hernia Obstructive sleep apnea (Chronic ~2017) Moderate-PAP therapy Hip osteoarthritis (Acute) Cough (Acute) rishabh Jordan 02/10/2020 started Breo inhaler 03/02/20 F/U with Dr Jordan, next ov 04/06/20 CKD (chronic kidney disease) (Acute) White coat syndrome with hypertension (Chronic) Tests in the 120s at home Chronic cough (Acute) Chronic pansinusitis (Acute) Headache (Acute) Depressive disorder (Acute) Iron deficiency anemia (Acute) Diverticulitis (Chronic) GERD (gastroesophageal reflux disease) (Chronic) Diverticular disease of colon (Acute) Prostate cancer (Chronic) Aortic valve disorder (Acute) Cerebrovascular disease (Acute) Malaise and fatigue (Acute) Dizziness and giddiness (Acute) Peripheral vascular disease (Chronic) Hypercholesterolemia (Acute) HTN (hypertension) (Chronic) Medical History History of pyloric stenosis as a child Surgical History H/O aortic valve replacement H/O colonoscopy (~11/04/21) 11/04/21 Dr Tyler H/O hemorrhoidectomy H/O shoulder surgery History of colon resection History of hernia repair History of tonsillectomy Family History Father Substance abuse Tuberculosis Mother Breast cancer Heart disease Sister Cancer Heart disease Hypertension Social History Smoking/Tobacco Use Status: Former Tobacco Use Quit Date: 09/07/1964 Pack- years: 42 Tobacco: How many years used: 14 Smoking risk assessment performed?: Yes Alcohol Intake: current Alcohol Intake frequency: holidays/special occasions only Alcohol type: wine Drug use: Never Substance use type: does not use Adopted: No Caregiver/Support person: No Foster care: No Household members: spouse Housing: house Number of Children: 1 Education Level: college Do you need help understanding health information?: Never 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 Pets and animals: No Sexually active: Yes Do you think of yourself as: straight/heterosexual Current gender identity: male What is your relationship status?: How often do you talk on the phone with friends or family?: three or more times per week How often do you get together with friends or relatives?: never How often do you attend congregation or zoroastrianism services?: decline to answer Do you belong to any clubs or organized social groups?: no Panel score (0-1 are the most socially isolated patients): 2 What type of physical activity do you participate in: other Details: [employer], Shalini Duration: 60-90 minutes/day Frequency: 1-2 times per week Seatbelt use: always Drive intox or ride w/intox driver examiner: No Working smoke detector in home: Yes Carbon monox detector in home: Yes Do you feel safe at home: Yes Do you feel safe in your relationship?: Yes Exam Const General: cooperative, healthy appearing and no acute distress HENGA Head: normal to inspection Ears: hearing grossly normal bilaterally and external ears normal Mouth: oral mucosae normal Mouth/tongue images: 1. There is a 1 x 2 mm puncture wound noted within the left lower lip correlating to where this area was caught on the wire of the lower mouthpiece. Bleeding is controlled. Throat image: 1. Ecchymosis, mild mucosal edema just below left lower canine. Tooth not tender to palpation and no loosening noted. Eyes General: appearance normal, both eyes and all related structures Neck Neck: normal visual inspection Resp Effort & Inspection: normal respiratory effort and able to speak in complete sentences Cardio Rate: regular rate Skin General skin exam: no rashes or lesions noted Neuro General: patient alert, patient awake and patient oriented x3 Motor: muscle tone normal throughout Extrem General: normal to inspection and full ROM Psych Appearance: grossly normal Affect: normal affect Course Vital Signs Vital signs: Vital Signs Temperature 97.5 F L 12/22/22 01:12 Pulse 78 12/22/22 01:12 Respiratory Rate 22 12/22/22 01:12 Blood Pressure 155/68 H 12/22/22 01:12 Pulse Oximetry 94 12/22/22 01:12 Temperature 97.5 F L 12/22/22 01:12 Temperature Source Axillary 12/22/22 01:12 Pulse 78 12/22/22 01:12 Respiratory Rate 22 12/22/22 01:12 Respiratory Effort Normal, Non-Labored 12/22/22 01:15 Blood Pressure 155/68 H 12/22/22 01:12 Blood Pressure Position Sitting 12/22/22 01:12 Pulse Oximetry 94 12/22/22 01:12 Oxygen Delivery Method Room Air 12/22/22 01:12 Oxygen Flow Rate 0 12/22/22 01:12 Pain Level 4 12/22/22 01:16
--- NOTE | 2022-12-22 01:54 | NUR.NOTE ---
Nursing Note: Dr. Lombardi at bedside to remove mouth guard.
--- NOTE | 2022-12-22 02:00 | DI.CT_ITS ---
Exam(s) CT FACIAL WO EXAM: CT FACIAL WO CLINICAL HISTORY: fall, hit L chin on headboard, r/o fx. TECHNIQUE: Imaging Protocol: Axial computed tomography images with coronal and sagittal reformatted images were created and reviewed. No IV contrast COMPARISON: CT HEAD WITHOUT STROKE PROTOCOL from 05/02/2017 FINDINGS: MAXILLOFACIAL CT SCAN: There is no evidence of facial fractures nor fluid the visualized paranasal sinuses. Surgical defect s in the medial christian of both maxillary sinuses are noted. There is no mucosal thickening or fluid i n the paranasal sinuses. Mastoid air cells are also clear. No evident of nasal bone fracture. There is no evidence of orbital blowout fracture. Mandible: No fracture. TMJ joints appear intact. IMPRESSION: No evidence of facial bone fractures nor orbital fractures. Evidence of previous paranasal sinus surgery. No evidence of sinusitis. RADIATION DOSE DELIVERED: 669.93mGy.cm Total DLP DATA REPOSITORY: All CT scans at this facility are submitted to the National Radiology Data Registry (NRDR) Dose Index Registry (DIR) with the [employer] (ACR). RADIATION OPTIMIZATION: All CT scans at this facility use at least one of these dose optimization te chniques: automated exposure control; mA and/or kV adjustment per patient size (includes targeted exa ms where dose is matched to clinical indication); or iterative reconstruction.
[2022-12-22] MEDS: Acetaminophen 500 MG TAB 1000 MG PO (02:10)
[2022-12-22 03:38] VITALS: BP 146/77; PULSE 65; RESP 22; TEMP 36.4; O2SAT 96
--- NOTE | 2022-12-22 03:56 | DI.VRAD_ITS ---
PROCEDURE INFORMATION: Exam: CT Maxillofacial Without Contrast; Mandible Exam date and time: 12/22/2022 2:12 AM Age: 82 years old Clinical indication: Injury or trauma; Blunt trauma (contusions or hematomas) and laceration; Left; Not specified; Jaw and lip/oral cavity; Injury date: 12/22/22; Injury details: Fall, hit L chin on headboard, R/O. Lac L chin/lower lip, bruised L canine TECHNIQUE: Imaging protocol: Computed tomography maxillofacial without contrast. Exam focused on the mandible. Radiation optimization: All CT scans at this facility use at least one of these dose optimization techniques: automated exposure control; mA and/or kV adjustment per patient size (includes targeted exams where dose is matched to clinical indication); or iterative reconstruction. COMPARISON: MR BRAIN WO 11/01/2021 1:59 PM FINDINGS: Bones/joints: Mandible is unremarkable. No acute fracture. Degenerative changes of the visualized cervical spine. Paranasal sinuses: Normal. No air-fluid levels. Soft tissues: Unremarkable. IMPRESSION: No acute finding. Dictated and Authenticated by: Felipe Terrell MD. Ordering:JAMIN King MD
== END 2022-12-22 03:43 | disposition home or self-care (01) ==
PROVIDERS: Emergency Provider Physician Assistant; PCP Family Medicine
DX: S01.511A Laceration without foreign body of lip, initial encounter (principal); S00.532A Contusion of oral cavity, initial encounter; I10 Essential (primary) hypertension; W45.8XXA Other foreign body or object entering through skin, initial encounter; W22.8XXA Striking against or struck by other objects, initial encounter
CPT/HCPCS: 90471; 99283; 70486

== ENCOUNTER 2022-12-23 13:24 | Outpatient (CLI) | payer MEDICARE, OTHER, SELFPAY | END 2022-12-23 13:25 | disposition home or self-care (01) | LOC: PUVA 13:25 | PROVIDERS: PCP Family Medicine; Visit Provider Dermatology | DX: L40.9 Psoriasis, unspecified (principal) | CPT/HCPCS: 96900 ==

== ENCOUNTER 2022-12-30 13:28 | Outpatient (CLI) | payer MEDICARE, OTHER, SELFPAY | END 2022-12-30 13:29 | disposition home or self-care (01) | LOC: PUVA 13:29 | PROVIDERS: PCP Family Medicine; Visit Provider Dermatology | DX: L40.9 Psoriasis, unspecified (principal) | CPT/HCPCS: 96900 ==

== ENCOUNTER 2023-01-06 12:55 | Outpatient (CLI) | payer MEDICARE, OTHER, SELFPAY | END 2023-01-06 12:56 | disposition home or self-care (01) | LOC: PUVA 12:55 | PROVIDERS: PCP Family Medicine; Visit Provider Dermatology | DX: L40.9 Psoriasis, unspecified (principal) | CPT/HCPCS: 96900 ==

== ENCOUNTER 2023-01-09 13:26 | Outpatient (CLI) | payer MEDICARE, OTHER, SELFPAY | END 2023-01-09 13:27 | disposition home or self-care (01) | LOC: PUVA 13:26 | PROVIDERS: PCP Family Medicine; Visit Provider Dermatology | DX: L40.9 Psoriasis, unspecified (principal) | CPT/HCPCS: 96900 ==

== ENCOUNTER 2023-01-16 00:17 | Outpatient (CLI) | payer MEDICARE, OTHER, SELFPAY ==
--- NOTE | 2023-01-16 13:44 | DI.DEXA_ITS ---
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 Lat eral survey image of the thoracic and lumbar spine. COMPARISON: CR XR LUMBAR SPINE COMPLETE from 04/27/2020 FINDINGS: Lateral view of the thoracic and lumbar spine shows no evidence of compression fractures. Bone mineral density measurements of the lumbar spine correspond to a total T-score of 4.0. There a re severe degenerative changes with endplate sclerosis likely elevating the bone mineral density rj ues. Bone mineral density measurements of the left hip correspond to a total T-score of -1.0. The femora l neck T-score is -1.9, in the osteopenic range.. The left forearm bone mineral density measurements correspond to a T-score of the distal 3rd of -1.4 , in the osteopenic range.. IMPRESSION: Osteopenia of the forearm and hip. Normal bone density of the lumbar spine.
== END 2023-01-16 00:37 ==
LOC: DI 00:18
PROVIDERS: PCP Family Medicine; Visit Provider Student in an Organized Health Care Education/Training Program
DX: M85.89 Other specified disorders of bone density and structure, multiple sites (principal); Z79.899 Other long term (current) drug therapy; Z13.820 Encounter for screening for osteoporosis
CPT/HCPCS: 77080

== ENCOUNTER 2023-01-16 13:18 | Outpatient (CLI) | payer MEDICARE, OTHER, SELFPAY | END 2023-01-16 13:19 | disposition home or self-care (01) | LOC: PUVA 13:18 | PROVIDERS: PCP Family Medicine; Visit Provider Dermatology | DX: L40.9 Psoriasis, unspecified (principal) | CPT/HCPCS: 77080; 96900 ==

== ENCOUNTER 2023-02-03 07:34 | Outpatient (CLI) | payer MEDICARE, OTHER, SELFPAY | END 2023-02-03 07:35 | disposition home or self-care (01) | LOC: PUVA 07:34 | PROVIDERS: PCP Family Medicine; Visit Provider Dermatology | DX: L40.9 Psoriasis, unspecified (principal) | CPT/HCPCS: 96900 ==

== ENCOUNTER 2023-02-10 07:09 | Outpatient (CLI) | payer MEDICARE, OTHER, SELFPAY | END 2023-02-10 07:10 | disposition home or self-care (01) | LOC: PUVA 07:09 | PROVIDERS: PCP Family Medicine; Visit Provider Dermatology | DX: L30.8 Other specified dermatitis (principal) | CPT/HCPCS: 96900 ==

== ENCOUNTER 2023-02-17 07:15 | Outpatient (CLI) | payer MEDICARE, OTHER, SELFPAY | END 2023-02-17 07:16 | disposition home or self-care (01) | LOC: PUVA 07:15 | PROVIDERS: PCP Family Medicine; Visit Provider Dermatology | DX: L30.8 Other specified dermatitis (principal) | CPT/HCPCS: 96900 ==

== ENCOUNTER 2023-03-03 09:12 | Outpatient (CLI) | payer MEDICARE, OTHER, SELFPAY | END 2023-03-03 09:13 | disposition home or self-care (01) | LOC: PUVA 09:13 | PROVIDERS: PCP Family Medicine; Visit Provider Dermatology | DX: L30.8 Other specified dermatitis (principal) | CPT/HCPCS: 96900 ==

== ENCOUNTER 2023-03-06 09:18 | Outpatient (CLI) | payer MEDICARE, OTHER, SELFPAY | END 2023-03-06 09:19 | disposition home or self-care (01) | LOC: PUVA 09:19 | PROVIDERS: PCP Family Medicine; Visit Provider Dermatology | DX: L30.8 Other specified dermatitis (principal) | CPT/HCPCS: 96900 ==

== ENCOUNTER 2023-03-11 10:39 | Outpatient (REF) | payer MEDICARE, OTHER, SELFPAY ==
[2023-03-11 23:06] LABS: Campylobacter PCR Negative (Negative); Salmonella PCR Negative (Negative); Shiga Toxin PCR Negative (Negative); Shigella/Enteroinvasive Ecoli Negative (Negative)
[2023-03-18 23:28] LABS: Lactoferrin, Qt, Stool <6.25 mcg/mL (<7.25)
== END 2023-03-11 10:40 | disposition home or self-care (01) ==
LOC: LBN 10:39
PROVIDERS: PCP Family Medicine; Visit Provider Internal Medicine Gastroenterology
DX: K57.92 Diverticulitis of intestine, part unspecified, without perforation or abscess without bleeding (principal)
CPT/HCPCS: 83631; 87505

== ENCOUNTER 2023-03-13 13:44 | Outpatient (CLI) | payer MEDICARE, OTHER, SELFPAY | END 2023-03-13 13:45 | disposition home or self-care (01) | LOC: PUVA 13:44 | PROVIDERS: PCP Family Medicine; Visit Provider Dermatology | DX: L30.8 Other specified dermatitis (principal) | CPT/HCPCS: 96900 ==

== ENCOUNTER 2023-03-24 01:31 | Outpatient (CLI) | payer MEDICARE, OTHER, SELFPAY ==
--- NOTE | 2023-03-24 13:55 | DI.MRI_ITS ---
Exam(s) MR LUMBAR SPINE WO EXAM: MR LUMBAR SPINE WO CLINICAL HISTORY: DECREASED WALKING TOLERANCE, EVAL FOR CENTRAL STENOSIS FOR NEUROGENIC. TECHNIQUE: Multiplanar multisequence MRI of the Lumbar spine was performed. COMPARISON: CT CT ABDOMEN PELVIS W from 12/13/2022 CR XR DEXA BONE DENSITY W/WO DAPHNE from 01/16/2023 FINDINGS: Bones: The last intervertebral disc space is designated the L5/S1 level for the numbering purpose of this examination. The vertebral body heights are well maintained. There is grade 1 anterolisthesis of L4 on L5. Degenerative endplate signal changes are seen. There is a hemangioma or fatty rest in t he T11 vertebral body. Cord: The conus tip ends at the L1 level. It is of normal size and signal intensity. T12-L1: No disc herniations or bulges are present. No central spinal canal or neural foraminal stenos is. L1-2: No disc herniations or bulges are present. There is no significant central spinal canal stenosi s.Moderate left neural foraminal stenosis. No significant right neural foraminal stenosis. L2-3: There is a diffuse disc bulge. The findings cause mild narrowing of the central spinal canal. Moderately severe bilateral neural foraminal stenosis is present. L3-4: No disc herniations or bulges are present. There are degenerative changes of the facets. No si gnificant central spinal canal stenosis is seen.There is marked bilateral neural foraminal stenosis. L4-5: There is no focal disc herniation. Hypertrophic changes of the facets are present. There is m ild narrowing of the central spinal canal. There is marked right and moderately severe left neural f oraminal stenosis. L5-S1: No disc herniations or bulges are present. No significant central spinal canal stenosis is pre sent. There is moderately severe bilateral neural foraminal stenosis.There are degenerative changes of the facets. Soft tissues: The visualized SI joints and sacrum are well maintained. The paraspinal soft tissues ar e unremarkable. IMPRESSION: Multilevel degenerative changes in the lumbar spine resulting in central spinal canal or neural jacob inal stenosis as described above. DATA REPOSITORY:
== END 2023-03-24 01:51 ==
LOC: DI 01:32
PROVIDERS: PCP Family Medicine; Visit Provider Student in an Organized Health Care Education/Training Program
DX: M48.062 Spinal stenosis, lumbar region with neurogenic claudication
CPT/HCPCS: 72148

== ENCOUNTER 2023-03-30 10:17 | Observation (INO) | payer MEDICARE, OTHER, SELFPAY ==
[2023-03-30] VITALS (12 sets, daily range): BP systolic 133–168; BP diastolic 67–83; PULSE 62–88; RESP 12–30; TEMP 36.5–36.6; O2SAT 95–97
--- NOTE | 2023-03-30 10:17 | RT.EKG_ITS ---
APPROVED REPORT Exam: Resting ECG Reason for Exam: syncopal episode Patient Location: E HR:73 bpm ECG Measurements Heart Rate 73 AXIS WY 201 P 70 QRSd 81 QRS 49 QT 366 T 65 QTc 403 Conclusion Sinus rhythm...normal P axis, V-rate 60- 99 Probable left atrial enlargement...P >50mS, <-0.10mV V1
--- NOTE | 2023-03-30 10:45 | DI.CT_ITS ---
Exam(s) CT HEAD WO EXAM: CT HEAD WO CLINICAL HISTORY: syncope, head trauma. TECHNIQUE: Imaging Protocol: Axial computed tomography images with coronal and sagittal reformatted images were created and reviewed COMPARISON: CT CT FACIAL WO from 12/22/2022 FINDINGS: Ventricles and Extra axial spaces: Normal in size and morphology for the patient's age. Hemorrhage: None. Cerebral parenchyma: There are areas of decreased attenuation in the white matter consistent with sma ll vessel ischemic disease. There is no evidence of an acute infarct. Midline shift: None. Brainstem/Cerebellum: Normal. Calvarium: Normal. Visualized Paranasal sinuses/Mastoids: Clear. Postsurgical changes in the visualized paranasal sinuse s. Soft Tissues: Unremarkable. IMPRESSION: 1. No acute intracranial process. 2. Findings were discussed with the emergency department at 12:15 p.m. on 03/30/2023. RADIATION DOSE DELIVERED: Total DLP DATA REPOSITORY: All CT scans at this facility are submitted to the National Radiology Data Registry (NRDR) Dose Index Registry (DIR) with the [employer] ([employer]). RADIATION OPTIMIZATION: All CT scans at this facility use at least one of these dose optimization te chniques: automated exposure control; mA and/or kV adjustment per patient size (includes targeted exa ms where dose is matched to clinical indication); or iterative reconstruction.
--- NOTE | 2023-03-30 11:08 | W.ED.GENAD ---
Discharge Plan Disposition Patient Disposition: Admit to [facility] Condition: Serious Discharge Details Clinical Impression: Syncope Admit Date/Time: 03/30/23 13:47 Admit Provider: Gary Porter Attending Provider: Gary Porter Primary Care Provider: Umesh Covarrubias ED Provider: Valentino Almodovar Discharge Data Discharge Date/Time-TO BE ENTERED AT DEPARTURE: 03/30/23 15:02 Medical Decision Making 1113 --82-year-old male with multiple medical problems including history of prior CVA, hypertension, hyperlipidemia, aortic valve replacement, here with generalized weakness, generally not feeling well after syncopal episode at 9 AM today. Patient did sustain head trauma during fall with syncope. Patient is mentating well at this time. Hemodynamically stable. Patient has no shortness of breath or chest pain. EKG was reviewed and interpreted by me: Please report, nondiagnostic. Sinus rhythm 73 bpm, left atrial enlargement. Consider ACS. Plan to obtain troponin. Unlikely CVA but given prior history will obtain CT of the head and also rule out acute intracranial traumatic hemorrhage. -- CT of the head was interpreted by radiology as negative. Labs reviewed and nondiagnostic. I called and spoke with the hospitalist, discussed ED presentation and course, he will admit the patient for continued observation. Patient agreeable to plan. Lab Data Lab results reviewed: Yes I reviewed the patient's lab results. HPI General Mode of arrival: EMS. Date/Time Provider Initiated Documentation: 03/30/23 10:20. Limitations to Documentation: no limitations. Information obtained by: patient and EMS. HPI Narrative: 82-year-old male with multiple medical problems including history of hypertension, hypercholesterolemia, peripheral vascular disease, cerebrovascular disease with prior CVAs in 2012 and 2015, status post aortic valve replacement, chronic kidney disease, here with chief complaint of dizziness. Patient notes this morning he generally was not feeling well. He was standing outside and suddenly felt lightheaded and collapsed to the ground. He did hit his head during the fall on a wall. Syncope was brief. No incontinence and no seizure-like activity was observed by bystander. Patient notes that he does have head discomfort described as a pressure that is been present for 2 years. He notes intermittent dizziness over the past 2 years. He states he has difficulty walking at times. He has had significant work-up which he notes has been nondiagnostic to date including [place] [facility] [place] Patient denies chest pain. No shortness of breath. No leg swelling. Related Data Home Medications Medication Instructions Recorded Confirmed cholecalciferol (vitamin D3) 50 2,000 unit PO DAILY 09/03/19 04/06/23 mcg (2,000 unit) tablet (Vitamin D3) coenzyme Q10 100 mg capsule (Co 300 mg PO DAILY 09/03/19 04/06/23 Q-10) fish, borage, flaxseed oils-omega 1 cap PO DAILY 09/03/19 04/06/23 3,6,9 comb no.1 1,200 mg capsule ([place] 3-6-9) lactobacillus combination no.4 3 3,000 mmu cells PO DAILY 09/03/19 04/06/23 billion cell capsule (Probiotic) lycopene 10 mg capsule 10 mg PO DAILY 09/03/19 04/06/23 vitamin B complex 1 cap PO DAILY 09/03/19 04/06/23 mucus clearing device #1 ea 03/05/20 04/06/23 hawthorn 500 mg capsule 500 mg PO DAILY 04/26/21 04/06/23 magnesium oxide 400 mg (241.3 mg 400 mg PO BID #0 tabs 09/24/21 04/06/23 magnesium) tablet burdock root 500 mg capsule 500 mg PO DAILY 12/03/21 04/06/23 dgl lozenges See Rx Instructions .Route .COMPLEX 12/03/21 04/06/23 aspirin 81 mg capsule 81 mg PO DAILY 12/05/21 04/06/23 Konsyl 6 mg PO DAILY 06/05/22 04/06/23 triamcinolone acetonide 0.147 1 spray topical BID PRN itching 08/11/22 04/06/23 mg/gram topical aerosol (Kenalog) #63 grams rosuvastatin 20 mg tablet See Rx Instructions .Route 11/10/22 04/06/23 .COMPLEX #90 tabs lorazepam 1 mg tablet 1 mg PO QHS PRN insomnia/back 11/17/22 04/06/23 spasms #30 tabs pantoprazole 40 mg tablet,delayed 40 mg PO BID #180 tabs 01/02/23 04/06/23 release sodium chloride 0.65 % nasal spray 1 spray intranasal ONCE #50 mL 05/08/23 07/31/23 aerosol ([place] Sal[place]) losartan 50 mg tablet 50 mg PO DAILY #90 tabs 02/20/23 04/06/23 albuterol sulfate 2.5 mg/3 mL 2.5 mg (3 mL) inhalation Q4H #540 04/06/23 04/06/23 (0.083 %) solution for nebulization mL sennosides 8.6 mg capsule (senna) 8.6 mg PO DAILY PRN constipation 04/06/23 04/06/23 #60 caps Previous Rx's Medication Instructions Recorded magnesium oxide 400 mg (241.3 mg 400 mg PO BID #0 tabs 09/24/21 magnesium) tablet triamcinolone acetonide 0.147 1 spray topical BID PRN itching 08/11/22 mg/gram topical aerosol (Kenalog) #63 grams rosuvastatin 20 mg tablet See Rx Instructions .Route 11/10/22 .COMPLEX #90 tabs lorazepam 1 mg tablet 1 mg PO QHS PRN insomnia/back 11/17/22 spasms #30 tabs pantoprazole 40 mg tablet,delayed 40 mg PO BID #180 tabs 01/02/23 release sodium chloride 0.65 % nasal spray 1 spray intranasal ONCE #50 mL 01/12/23 aerosol ([place] Saline) losartan 50 mg tablet 50 mg PO DAILY #90 tabs 02/20/23 albuterol sulfate 2.5 mg/3 mL 2.5 mg (3 mL) inhalation Q4H #540 04/06/23 (0.083 %) solution for nebulization mL sennosides 8.6 mg capsule (senna) 8.6 mg PO DAILY PRN constipation 04/06/23 #60 caps Allergies Allergy/AdvReac Type Severity Reaction Status Date / Time metronidazole Allergy Intermediate Skin Rash, Verified 04/06/23 15:03 swelling, itchy sulfamethoxazole Allergy turns red Verified 04/06/23 15:03 [From Bactrim] trimethoprim [From Bactrim] Allergy turns red Verified 04/06/23 15:03 ropinirole AdvReac Severe insomina, Verified 04/06/23 15:03 weakness, intense fatigue zolpidem [From Ambien] AdvReac sleep Verified 04/06/23 15:03 walk General Stated Complaint: [id number] ANIBAL: 3 Review of Systems All systems reviewed & are unremarkable except as noted in HPI and below Constitutional Constitutional: Denies fever(s), Reports lethargy and Reports weakness (generalized today; chronic unchanged right arm fine motor weakness post cva) Cardiovascular Cardiovascular: Denies chest pain, Denies irregular heart rhythm and Denies dyspnea Respiratory Respiratory: Denies dyspnea Musculoskeletal Musculoskeletal: Reports back pain (chronic unchanged) Neurologic Neurologic: Reports weakness (generalized today; chronic unchanged right arm fine motor weakness post cva) [facility] All Active Problems (Updated 04/07/23 @ 10:58 by Valentino Almodovar MD) Syncope (Chronic) Constipation (Acute) Syncope (Chronic) Osteopenia (Acute) Sacral back pain (Acute) [place] [facility] per [place] [facility] [place]-term current use of proton pump inhibitor therapy (Acute) Conductive hearing loss, external ear (Acute) Impacted cerumen, bilateral (Acute) Left hip pain (Acute) Corns and callosities (Acute) Nail dystrophy (Acute) History of vascular surgery (Chronic) Stenting of L internal carotid artery, 06[place]28[place] [facility] [place] started plavix Eczema (Acute) start narrow band UVB bid at [facility] Arteriosclerosis of left carotid artery (Acute) 05/22/22 [facility]ascular Stenosis of carotid artery (Acute) 05[place]22/[place] [facility] [place] History of hemoptysis (Acute) Onychomycosis (Acute 04/23/22) 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 Lorazepam tx Acute dyspnea (Acute) H/O endoscopy (Chronic) 11/2020 Sinusitis, chronic 11/04/21 LA low grade esophageal ulcer, 2 cm Hiatal Hernia Obstructive sleep apnea (Chronic ~2017) Moderate-PAP therapy Hip osteoarthritis (Acute) Cough (Acute) per Nikki 02/10/2020 started Breo inhaler 03/02/20 F/U with Dr Jordan, next ov 04/06/20 CKD (chronic kidney disease) (Acute) White coat syndrome with hypertension (Chronic) Tests in the 120s at home Chronic cough (Acute) Chronic pansinusitis (Acute) Headache (Acute) Depressive disorder (Acute) Iron deficiency anemia (Acute) Diverticulitis (Chronic) GERD (gastroesophageal reflux disease) (Chronic) Diverticular disease of colon (Acute) Prostate cancer (Chronic) Aortic valve disorder (Acute) Cerebrovascular disease (Acute) Malaise and fatigue (Acute) Dizziness and giddiness (Acute) Peripheral vascular disease (Chronic) Hypercholesterolemia (Acute) HTN (hypertension) (Chronic) Medical History History of pyloric stenosis as a child Surgical History H/O aortic valve replacement H/O colonoscopy (~11/04/21) 11/04/21 Dr Tyler H/O hemorrhoidectomy H/O shoulder surgery History of colon resection History of hernia repair History of tonsillectomy Family History Father Substance abuse Tuberculosis Mother Breast cancer Heart disease Sister Cancer Heart disease Hypertension Social History Smoking/Tobacco Use Status: Former Tobacco Use Quit Date: 09/07/1964 Pack-years: 42 Tobacco: How many years used: 14 Smoking risk assessment performed?: Yes Alcohol Intake: current Alcohol Intake frequency: holidays/special occasions only Alcohol type: wine Drug use: Never Substance use type: does not use Adopted: No Caregiver/Support person: No Foster care: No Household members: spouse Housing: house Number of Children: 1 Education Level: college Do you need help understanding health information?: Never 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 Pets and animals: No Sexually active: Yes Do you think of yourself as: straight/heterosexual Current gender identity: male What is your relationship status?: How often do you talk on the phone with friends or family?: three or more times per week How often do you get together with friends or relatives?: never How often do you attend adventist or cheondoism services?: decline to answer Do you belong to any clubs or organized social groups?: no Panel score (0-1 are the most socially isolated patients): 2 What type of physical activity do you participate in: other Details: 2nd Degree Shalini Rodarte Duration: 60-90 minutes/day Frequency: 1-2 times per week Seatbelt use: always Drive intox or ride w/intox taxi cab driver: No Working smoke detector in home: Yes Carbon monox detector in home: Yes Do you feel safe at home: Yes Do you feel safe in your relationship?: Yes Exam Const General: cooperative and no acute distress HENMT Mouth: moist mucous membranes Eyes Conjunctivae: normal conjunctivae Sclera: normal sclerae EOM: EOM intact bilaterally Neck Neck: trachea midline and supple Resp Auscultation: clear to auscultation bilaterally, no rales, no rhonchi and no wheezes Cardio Rate: regular rate and not tachycardic Rhythm: regular rhythm Heart Sounds: murmur systolic GI Palpation: soft, not firm, no guarding, no masses, not rigid and nontender Skin General skin exam: no rashes or lesions noted Neuro General: patient alert, patient awake, patient oriented x3 and tone normal Cranial Nerves: CN's II-XI intact bilaterally Cognition: normal cognition Speech: speech normal Motor: strength 5/5 throughout Sensory Exam: no sensory deficits noted Extrem General: no edema Psych Appearance: grossly normal Mental Status: mental status grossly normal Speech and Movement: speech and movement normal Course Vital Signs Vital signs: Vital Signs Temperature 36.6 C 03/30/23 10:24 Pulse 75 03/30/23 10:24 Respiratory Rate 21 03/30/23 10:24 Blood Pressure 145/68 H 03/30/23 10:24 Pulse Oximetry 97 03/30/23 10:24 Temperature 36.6 C 03/30/23 10:24 Temperature Source Oral 03/30/23 10:24 Pulse 75 03/30/23 10:24 Respiratory Rate 21 03/30/23 10:24 Respiratory Effort Normal, Non-Labored 03/30/23 10:33 Respiratory Depth Normal 03/30/23 10:33 Respiratory Pattern Normal 03/30/23 10:33 Blood Pressure 145/68 H 03/30/23 10:24 Blood Pressure Position Supine 03/30/23 10:24 Pulse Oximetry 97 03/30/23 10:24 Oxygen Delivery Method Room Air 03/30/23 10:24 Oxygen Flow Rate 0 03/30/23 10:24 Pain Level 2 03/30/23 10:24
[2023-03-30 11:12] LABS: Abs Immature Grans 0.06 10^3/uL (0.0-0.06); Absolute Basophil Count 0.04 10^3/uL (0.0-0.2); Absolute Eosinophil Count 0.28 10^3/uL (0.0-0.7); Absolute Lymphocyte Count 1.41 10^3/uL (1.2-3.4); Absolute Monocyte Count 0.59 10^3/uL (0.1-0.8); Absolute Neutrophil Count 6.49 10^3/uL (1.2-6.7); Basophils % 0.5; Eosinophils % 3.2; HCT 47.7 % (40.0-50.0); HGB 16.3 g/dL (13.5-17.5); Immature Grans % 0.7; Lymphocytes % 15.9; MCH 31.4 pg (27.0-33.0); MCHC 34.2 % (32.0-36.0); MCV 92 fL (80-95); MPV 9.8 fL (8.0-11.0); Monocytes % 6.7; Platelet Count 143 10^3/uL (130-400); RBC 5.19 10^6/uL (4.36-5.78); RDW 14.1 % (11.8-14.1); RDW-SD 48.5 fL; WBC 8.87 10^3/uL (4.4-10.8)
--- NOTE | 2023-03-30 11:15 | DI.RAD_ITS ---
Exam(s) XR CHEST 1V IN DI DEPT EXAM: XR CHEST 1V IN DI DEPT CLINICAL HISTORY: syncope TECHNIQUE: 2D digital imaging was performed of the chest. One image was obtained. An AP view was ob tained. COMPARISON: CR XR CHEST 2V PA LATERAL from 04/08/2021 CR,XR XR RIBS LT PA CHEST 3V from 07/18/2022 FINDINGS: MEDIASTINUM: Normal. HEART: Normal. PULMONARY VASCULATURE: Normal. LUNGS: Clear. PLEURAL SPACE: No pleural effusion or pneumothorax. BONE:Within normal limits for the patient's age. There is a left total reverse shoulder replacement. Postsurgical changes are seen in the right humeral head. There are old right rib fractures. OTHER FINDINGS:Normal. IMPRESSION: No acute pulmonary findings. DATA REPOSITORY: RADIATION DOSE DELIVERED:
[2023-03-30 11:32] LABS: ALT 28 U/L (16-63); AST 20 U/L (15-37); Albumin 3.6 g/dL (3.4-5.0); Alkaline Phosphatase 56 U/L (46-116); Anion Gap 6.5 mmol/L (3-11); BUN 24 mg/dL (7-18); Bilirubin, Total 0.5 mg/dL (0.2-1.0); CO2 25.5 mmol/L (21.0-32.0); CREATININE 1.7 mg/dL (0.70-1.30); Calcium 9.1 mg/dL (8.5-10.1); Chloride 103 mmol/L (98-107); Estimated GFR 39.26 (mL/min/1.73m2); Glucose 95 mg/dL (74-106); Magnesium 1.9 mg/dL (1.8-2.4); Potassium 4.4 mmol/L (3.5-5.1); Sodium 135 mmol/L (136-145); Total Protein 6.3 g/dL (6.4-8.2); Troponin I < 50 ng/L (<or=60)
[2023-03-30 12:10] LABS: Bilirubin Negative (Negative); Blood Negative (Negative); Clarity Clear (Clear); Glucose Negative (Negative); Ketones Negative (Negative); Leukocyte Esterase Negative (Negative); Nitrite Negative (Negative); Urobilinogen 0.2 mg/dL (Up to 0.2)
[2023-03-30 12:17] LABS: *AMPHETAMINES SCREEN URINE Negative (Negative); *BARBITURATES SCREEN URINE Negative (Negative); *BENZODIAZEPINES SCREEN URINE Negative (Negative); Cannabinoids THC Positive (Negative); Cocaine Screen,Urine Negative (Negative); METHADONE URINE SCREEN Negative (Negative); OPIATES URINE SCREEN Negative (Negative)
[2023-03-30 12:18] LABS: Tricyclic Antidepressants Negative (Negative)
[2023-03-30 14:05] LABS: Troponin I < 50 ng/L (<or=60)
--- NOTE | 2023-03-30 14:15 | RESPIRATORY ---
RT spoke with patient concerning history of Insomnia along with GARIMA in chart. Patient stated he had a PAP device at one point but was unable to use it. Currently, has an oral appliance which he uses at night. When asked if a family member could bring it in for use in the hospital, patient stated he does not like using it and will be fine without it. He stated if he gets admitted for awhile, then he might have his bring it in.
--- NOTE | 2023-03-30 15:55 | HPE_ITS ---
Date of service: 03/30/23 Time of Service: 15:55 Assessment and Plan Assessment and plan (1) Syncope: Status: Chronic Assessment and plan: unclear if loss of consciousness, remembers entire event, including feeling lightheaded then hitting his head. no seizure activity, no post ictal period. referred to obs on telemetry. check orthostatics. (2) Spinal stenosis, lumbar region with neurogenic claudication: Status: Suspected (3) Constipation: Status: Acute Assessment and plan: mag citrate takes miralax and prune juice at home, this has not been working. discussed with Dr Porter History of Present Illness History of Present Illness Chief Complaint: fall with head injury Narrative: presents to the ED for evaluation of a head injury sustained after falling while getting up. it is unclear if this was a syncopal episode. there was no reported seizure or LOC, it was witnessed by his . He does not feel that he passed out. work up in the ED was unrevealing with normal EKG, Review of Systems All systems reviewed & are unremarkable except as noted in HPI and below PFSH All Active Problems (Updated 03/30/23 @ 16:49 by Jojo Luna NP) Constipation (Acute) Syncope (Chronic) Osteopenia (Acute) Sacral back pain (Acute) referred to [facility] per note 01/02/23 [facility] [place] Long-term current use of proton pump inhibitor therapy (Acute) Conductive hearing loss, external ear (Acute) Impacted cerumen, bilateral (Acute) Left hip pain (Acute) Corns and callosities (Acute) Nail dystrophy (Acute) History of vascular surgery (Chronic) Stenting of L internal carotid artery, 06/28, [facility] [place], started plavix Eczema (Acute) start narrow band UVB bid at [facility] Arteriosclerosis of left carotid artery (Acute) 05/22/22 Vascular Stenosis of carotid artery (Acute) 05/22/22 [facility] [place] Vascular History of hemoptysis (Acute) Onychomycosis (Acute 04/23/22) 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 Lorazepam tx Acute dyspnea (Acute) H/O endoscopy (Chronic) 11/2020 Sinusitis, chronic 11/04/21 [place] low grade esophageal ulcer, 2 cm Hiatal Hernia Obstructive sleep apnea (Chronic ~2017) Moderate-PAP therapy Hip osteoarthritis (Acute) Cough (Acute) per Nikki 02/10/2020 started Breo inhaler 03/02/20 F/U with Dr Jordan, next ov 04/06/20 CKD (chronic kidney disease) (Acute) White coat syndrome with hypertension (Chronic) Tests in the 120s at home Chronic cough (Acute) Chronic pansinusitis (Acute) Headache (Acute) Depressive disorder (Acute) Iron deficiency anemia (Acute) Diverticulitis (Chronic) GERD (gastroesophageal reflux disease) (Chronic) Diverticular disease of colon (Acute) Prostate cancer (Chronic) Aortic valve disorder (Acute) Cerebrovascular disease (Acute) Malaise and fatigue (Acute) Dizziness and giddiness (Acute) Peripheral vascular disease (Chronic) Hypercholesterolemia (Acute) HTN (hypertension) (Chronic) Medical History History of pyloric stenosis as a child Surgical History H/O aortic valve replacement H/O colonoscopy (~11/04/21) 11/04/21 Dr Tyler H/O hemorrhoidectomy H/O shoulder surgery History of colon resection History of hernia repair History of tonsillectomy Family History Father Substance abuse Tuberculosis Mother Breast cancer Heart disease Sister Cancer Heart disease Hypertension Social History Smoking/Tobacco Use Status: Former Tobacco Use Quit Date: 09/07/1964 Pack- years: 40 Tobacco: How many years used: 14 Smoking risk assessment performed?: Yes Alcohol Intake: current Alcohol Intake frequency: holidays/special occasions only Alcohol type: wine Drug use: Never Substance use type: does not use Adopted: No Caregiver/Support person: No Foster care: No Household members: spouse Housing: house Number of Children: 1 Education Level: college Do you need help understanding health information?: Never 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 Pets and animals: No Sexually active: Yes Do you think of yourself as: straight/heterosexual Current gender identity: male What is your relationship status?: How often do you talk on the phone with friends or family?: three or more times per week How often do you get together with friends or relatives?: never How often do you attend shinto or evangelical services?: decline to answer Do you belong to any clubs or organized social groups?: no Panel score (0-1 are the most socially isolated patients): 2 What type of physical activity do you participate in: other Details: [employer]hardwaj Duration: 60-90 minutes/day Frequency: 1-2 times per week Seatbelt use: always Drive 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 Working smoke detector in home: Yes Carbon monox detector in home: Yes Do you feel safe at home: Yes Do you feel safe in your relationship?: Yes Meds Allergies and Home Medications Allergies Allergy/AdvReac Type Severity Reaction Status Date / Time metronidazole Allergy Intermediate Skin Rash, Verified 03/30/23 11:03 swelling, itchy sulfamethoxazole Allergy turns red Verified 02/17/23 15:21 [From Bactrim] trimethoprim [From Bactrim] Allergy turns red Verified 02/17/23 15:21 ropinirole AdvReac Severe insomina, Verified 02/17/23 15:21 weakness, intense fatigue zolpidem [From Ambien] AdvReac sleep Verified 03/30/23 11:03 walk Home Medications Medication Instructions Recorded Confirmed Type cholecalciferol (vitamin D3) 50 2,000 unit PO DAILY 09/03/19 03/30/23 History mcg (2,000 unit) tablet (Vitamin D3) coenzyme Q10 100 mg capsule (Co 300 mg PO DAILY 09/03/19 03/30/23 History Q-10) fish, borage, flaxseed oils-omega 1 cap PO DAILY 09/03/19 03/30/23 History 3,6,9 comb no.1 1,200 mg capsule (Christine 3-6-9) lactobacillus combination no.4 3 3,000 mmu cells PO DAILY 09/03/19 03/30/23 History billion cell capsule (Probiotic) lycopene 10 mg capsule 10 mg PO DAILY 09/03/19 02/17/23 History vitamin B complex 1 cap PO DAILY 09/03/19 02/17/23 History mucus clearing device #1 ea 03/05/20 02/17/23 History hawthorn 500 mg capsule 500 mg PO DAILY 04/26/21 03/30/23 History magnesium oxide 400 mg (241.3 mg 400 mg PO BID #0 tabs 09/24/21 02/17/23 Rx magnesium) tablet burdock root 500 mg capsule 500 mg PO DAILY 12/03/21 03/30/23 History dgl lozenges See Rx Instructions .Route .COMPLEX 12/03/21 02/17/23 History aspirin 81 mg capsule 81 mg PO DAILY 12/05/21 03/30/23 History Konsyl 6 mg PO DAILY 06/05/22 02/17/23 History triamcinolone acetonide 0.147 1 spray topical BID PRN itching 08/11/22 02/17/23 Rx mg/gram topical aerosol (Kenalog) #63 grams rosuvastatin 20 mg tablet See Rx Instructions .Route 11/10/22 03/30/23 Rx .COMPLEX #90 tabs lorazepam 1 mg tablet 1 mg PO QHS PRN insomnia/back 11/17/22 03/30/23 Rx spasms #30 tabs pantoprazole 40 mg tablet,delayed 40 mg PO BID #180 tabs 01/02/23 03/30/23 Rx release sodium chloride 0.65 % nasal spray 1 spray intranasal ONCE #50 mL 01/12/23 02/17/23 Rx aerosol (Latexo Saline) losartan 50 mg tablet 50 mg PO DAILY #90 tabs 02/20/23 03/30/23 Rx Exam Const General: cooperative, healthy appearing, comfortable and no acute distress Nutritional Appearance: average body habitus Orientation: alert, awake and oriented x3 HENMT Head: normal to inspection, normocephalic and atraumatic Face and sinus: normal facial exam Mouth: moist mucous membranes abnormal (dry) Neck Neck: normal visual inspection, full ROM and no JVD Chest Chest: normal inspection of the chest Resp Effort & Inspection: normal respiratory effort Auscultation: clear to auscultation bilaterally Cardio Rate: regular rate Rhythm: regular rhythm Heart Sounds: no murmurs GI Inspection: normal to inspection Palpation: soft Skin General skin exam: no rashes or lesions noted Neuro General: patient alert, patient awake, patient oriented x3, gait normal, tone normal, no focal motor deficits and CN's II-XI intact bilaterally Extrem General: normal to inspection and full ROM Psych Appearance: grossly normal Mental Status: mental status grossly normal Speech and Movement: speech and movement normal Mood: congruent mood Results Labs 03/31/23 05:38 03/31/23 05:38 Labs: Laboratory Results - last 24 hr 03/30/23 03/30/23 03/30/23 10:55 10:55 11:54 WBC 8.87 RBC 5.19 Hgb 16.3 Hct 47.7 MCV 92 MCH 31.4 MCHC 34.2 RDW 14.1 Plt Count 143 MPV 9.8 Immature Gran % 0.7 Neutrophils % 73.0 Lymphocytes % 15.9 Monocytes % 6.7 Eosinophils % 3.2 Basophils % 0.5 Nucleated RBC % 0.0 Absolute Neutrophils 6.49 Absolute Lymphocytes 1.41 Absolute Monocytes 0.59 Absolute Eosinophils 0.28 Absolute Basophils 0.04 Sodium 135 L Potassium 4.4 Chloride 103 Carbon Dioxide 25.5 Anion Gap 6.5 BUN 24 H Creatinine 1.7 H Est GFR (CKD-EPI 2020) 39.26 Glucose 95 Calcium 9.1 Magnesium 1.9 Total Bilirubin 0.5 AST 20 ALT 28 Alkaline Phosphatase 56 Troponin I < 50 Total Protein 6.3 L Albumin 3.6 Urine Color Urine Clarity Urine pH Ur Specific Elrod Urine Protein Urine Ketones Urine Blood Urine Nitrite Urine Bilirubin Urine Urobilinogen Ur Leukocyte Esterase Urine Glucose Urine Opiates Screen Negative Urine Methadone Screen Negative Ur Barbiturates Screen Negative Ur Tricyclics Screen Negative Ur Amphetamines Screen Negative U Benzodiazepines Scrn Negative Urine Cocaine Screen Negative Ur THC Screen Positive A 03/30/23 03/30/23 11:54 13:40 WBC RBC Hgb Hct MCV MCH MCHC RDW Plt Count MPV Immature Gran % Neutrophils % Lymphocytes % Monocytes % Eosinophils % Basophils % Nucleated RBC % Absolute Neutrophils Absolute Lymphocytes Absolute Monocytes Absolute Eosinophils Absolute Basophils Sodium Potassium Chloride Carbon Dioxide Anion Gap BUN Creatinine Est GFR (CKD-EPI 2020) Glucose Calcium Magnesium Total Bilirubin AST ALT Alkaline Phosphatase Troponin I < 50 Total Protein Albumin Urine Color Yellow Urine Clarity Clear Urine pH 7.0 Ur Specific [place]rod 1.020 Urine Protein Negative Urine Ketones Negative Urine Blood Negative Urine Nitrite Negative Urine Bilirubin Negative Urine Urobilinogen 0.2 Ur Leukocyte Esterase Negative Urine Glucose Negative Urine Opiates Screen Urine Methadone Screen Ur Barbiturates Screen Ur Tricyclics Screen Ur Amphetamines Screen U Benzodiazepines Scrn Urine Cocaine Screen Ur THC Screen Last Vital Signs Temp 36.5 C 03/30/23 15:14 Pulse 72 03/30/23 15:39 Resp 16 03/30/23 15:14 BP 160/79 H 03/30/23 15:14 Pulse Ox 95 03/30/23 15:14 Time Spent Time spent with Patient: 40-54 minutes Time was spent: preparing to see the patient(eg.review tests), obtaining and/or reviewing separately otained hiistory, ordering medications,tests, procedures, indepentently interpreting results and counseling the patient
[2023-03-30] MEDS: Losartan 50 MG TAB PO (18:09)
[2023-03-30] MEDS: Rosuvastatin 20 MG TAB PO (20:21)
[2023-03-30] MEDS: Polyethylene Glycol 3350 17 GM PACKET PO (21:40)
[2023-03-30] MEDS: Acetaminophen 325 MG TAB 650 MG PO (21:40)
[2023-03-30] MEDS: LORazepam 1 MG TAB PO (21:41)
[2023-03-31 00:10] VITALS: BP 118/66; PULSE 77; RESP 18; TEMP 36.7; O2SAT 95
[2023-03-31] MEDS: Acetaminophen 325 MG TAB 650 MG PO (05:45)
[2023-03-31 06:14] LABS: Abs Immature Grans 0.07 10^3/uL (0.0-0.06); Absolute Basophil Count 0.05 10^3/uL (0.0-0.2); Absolute Lymphocyte Count 2.37 10^3/uL (1.2-3.4); Basophils % 0.4; Eosinophils % 2.5; HCT 45.2 % (40.0-50.0); HGB 15.6 g/dL (13.5-17.5); Immature Grans % 0.5; Lymphocytes % 17.7; MCH 31.4 pg (27.0-33.0); MCHC 34.5 % (32.0-36.0); MCV 91 fL (80-95); MPV 9.8 fL (8.0-11.0); Monocytes % 6.3; Neutrophils % 72.6; Platelet Count 150 10^3/uL (130-400); RBC 4.97 10^6/uL (4.36-5.78); RDW 13.9 % (11.8-14.1); RDW-SD 46.9 fL; WBC 13.39 10^3/uL (4.4-10.8)
[2023-03-31 06:18] LABS: Absolute Eosinophil Count 0.33 10^3/uL (0.0-0.7); Absolute Monocyte Count 0.84 10^3/uL (0.1-0.8); Absolute Neutrophil Count 9.72 10^3/uL (1.2-6.7)
[2023-03-31 06:24] LABS: Anion Gap 9.3 mmol/L (3-11); BUN 23 mg/dL (7-18); CO2 21.7 mmol/L (21.0-32.0); CREATININE 1.6 mg/dL (0.70-1.30); Calcium 9.2 mg/dL (8.5-10.1); Chloride 104 mmol/L (98-107); Estimated GFR 42.22 (mL/min/1.73m2); Glucose 99 mg/dL (74-106); Potassium 4.3 mmol/L (3.5-5.1); Sodium 135 mmol/L (136-145)
[2023-03-31 07:04] VITALS: PULSE 65
[2023-03-31 07:09] VITALS: BP 124/74; PULSE 66; RESP 16; TEMP 36.4; O2SAT 95
[2023-03-31] MEDS: Aspirin E.C. 81 MG TABEC PO (08:23)
[2023-03-31] MEDS: Losartan 50 MG TAB PO (08:23)
[2023-03-31] MEDS: Docusate Sodium 100 MG CAP PO (09:28)
--- NOTE | 2023-03-31 09:33 | DSE_ITS ---
Date of service: 03/31/23 Time of Service: 09:33 DS: Diagnosis Discharge Diagnosis (1) Syncope: Status: Chronic (2) Spinal stenosis, lumbar region with neurogenic claudication: Status: Suspected (3) Constipation: Status: Acute Discharge Plan Disposition Patient Disposition: Home Condition: Stable Discharge Details Reason For Visit: Syncope Admit Date/Time: 03/30/23 13:47 Admit Provider: Gary Porter Attending Provider: Gary Porter Primary Care Provider: Umesh Covarrubias [facility] Course Hospital Course: This is a 82-year-old gentleman with history of GERD hypertension neurogenic claudication headaches lumbar stenosis who presents to the emergency department after sustaining a fall while getting up. He states he did hit his head. He denies any loss of consciousness. It was witnessed by his . Work-up in the emergency department showed negative head CT normal EKG unremarkable labs he was admitted to the medical surgical unit for observation overnight on telemetry. He was not orthostatic vital signs remained stable no dysrhythmias on telemetry. He was complaining of some constipation we think his symptoms were most likely due to some mild dehydration with orthostasis. He is stable and at his baseline we did offer mag citrate for his bowels which she did decline. He was eating and drinking and back to his baseline there are no medication changes he should follow-up outpatient with primary care provider for further work-up as warranted Discharge discussed with Dr. Porter Home Meds and New Rx's Prescriptions: Continued hawthorn 500 mg capsule 500 mg PO DAILY Hold Instructions: Home Medication placed on hold at Doctor's office lorazepam 1 mg tablet 1 mg PO QHS PRN (Reason: insomnia/back spasms) Qty: 30 2RF aspirin 81 mg capsule 81 mg PO DAILY Hold Instructions: Home Medication placed on hold at Doctor's office burdock root 500 mg capsule 500 mg PO DAILY dgl lozenges See Rx Instructions .ROUTE .COMPLEX Patient Comments: PT not taking Rx Instructions: As directed Konsyl 6 mg powder 6 mg PO DAILY Patient Comments: PT not taking Winfred Saline 0.65 % aerosol,spray 1 spray intranasal ONCE Qty: 50 5RF Patient Comments: PT not taking Rx Instructions: 1 spray each nostril (DME) mucus clearing device Device See Rx Instructions .ROUTE .MEDSUPPLY Qty: 1 Rx Instructions: BID triamcinolone acetonide [Kenalog] 0.147 mg/gram aerosol 1 spray topical BID PRN (Reason: itching) Qty: 63 0RF Patient Comments: PT not taking rosuvastatin 20 mg tablet See Rx Instructions .ROUTE .COMPLEX Qty: 90 3RF Dose Instruction: TAKE 1 TABLET DAILY Rx Instructions: TAKE 1 TABLET DAILY pantoprazole 40 mg tablet,delayed release (DR/EC) 40 mg PO BID Qty: 180 3RF losartan 50 mg tablet 50 mg PO DAILY Qty: 90 3RF Rx Instructions: pt stopped and then restarted this me on his own 10/13/21 cc vitamin B complex Capsule 1 cap PO DAILY Patient Comments: PT not taking coenzyme Q10 [Co Q-10] 100 mg Capsule 300 mg PO DAILY Hold Instructions: Home Medication placed on hold at Doctor's office lycopene 10 mg Capsule 10 mg PO DAILY Hold Instructions: Home Medication placed on hold at Doctor's office Patient Comments: PT not taking cholecalciferol (vitamin D3) [Vitamin D3] 2,000 unit Tablet 2,000 unit PO DAILY Hold Instructions: Home Medication placed on hold at Doctor's office Probiotic 3 billion cell Capsule 3,000 mmu cells PO DAILY [place] 3-6-9 1,200 mg Capsule 1 cap PO DAILY Hold Instructions: Home Medication placed on hold at Doctor's office magnesium oxide 400 mg (241.3 mg magnesium) Tablet 400 mg PO BID Qty: 0 0RF Hold Instructions: Home Medication placed on hold at Doctor's office Patient Comments: PT not taking Discharge Instructions Instructions: Constipation (DC), Near Syncope (DC) Stand Alone Forms: Nursing Discharge Form Referrals: Umesh Covarrubias DO [Primary Care Provider] - 04/03/23 3:15 pm Activity:: Activity as Tolerated Equipment/Supplies:: No Equipment Needed Diet:: As Tolerated Discharge Orders Discharge Orders: Discharge Order (Routine); Ordered 03/31/23 Ordered By: Jojo Luna Discharge Data Discharge Date/Time-TO BE ENTERED AT DEPARTURE: 03/31/23 11:56 Discharge Comment: pt dc'd home DS: Summary Time Spent with Patient providing and/or coordinating discharge services: Less than 30 minutes Status at Discharge Functional status at discharge: independent ambulation Overall status at discharge: patient is back to baseline Mental Status: mental status grossly normal Speech and Movement: speech and movement normal Mood: congruent mood Affect: normal affect Exam Const General: cooperative, healthy appearing, comfortable and no acute distress Nutritional Appearance: average body habitus Orientation: alert, awake and oriented x3 HENMT Head: normal to inspection, normocephalic and atraumatic Face and sinus: normal facial exam Neck Neck: normal visual inspection, full ROM and no JVD Chest Chest: normal inspection of the chest Resp Effort & Inspection: normal respiratory effort Auscultation: clear to auscultation bilaterally Cardio Rate: regular rate Rhythm: regular rhythm Heart Sounds: no murmurs GI Inspection: normal to inspection Palpation: soft Skin General skin exam: no rashes or lesions noted Neuro General: patient alert, patient awake, patient oriented x3, gait normal, tone normal, no focal motor deficits and CN's II-XI intact bilaterally Extrem General: normal to inspection and full ROM Psych Appearance: grossly normal Mental Status: mental status grossly normal Speech and Movement: speech and movement normal Mood: congruent mood Affect: normal affect DS: Data Vitals/I&O Vitals and I&O: Vital Signs Temperature 36.4 C L 03/31/23 07:09 Temperature Source Tympanic 03/31/23 07:09 Pulse 66 03/31/23 07:09 Pulse Rhythm Regular 03/30/23 22:50 Pulse 82 03/30/23 12:20 Respiratory Rate 16 03/31/23 07:09 Respiratory Effort Normal 03/30/23 22:50 Respiratory Depth Normal 03/30/23 22:50 Respiratory Pattern Normal 03/30/23 22:50 Blood Pressure 124/74 03/31/23 07:09 Blood Pressure Mean 94 03/30/23 11:30 Blood Pressure Position Supine 03/30/23 10:24 Pulse Oximetry 95 03/31/23 07:09 Oxygen Delivery Method Room Air 03/31/23 07:09 Oxygen Flow Rate 0 03/31/23 07:09 Pain Level 8 03/31/23 07:09 Intake & Output 03/30/23 03/30/23 03/31/23 11:59 23:59 11:59 Intake Total 300 / 300 Output Total 300 / 300 Balance 300 / 300 -300 / -300 Weight 69.5 kg Intake: Oral 300 / 300 Output: Urine 300 / 300 Other: Urine Color Yellow Urine Appearance Clear Clear Voiding Methods Toilet Data Completed and Pending Labs on day of discharge: Labs from last 24 hours 03/31/23 03/31/2323 05:38 05:38 13:40 WBC 13.39 H RBC 4.97 Hgb 15.6 Hct 45.2 MCV 91 MCH 31.4 MCHC 34.5 RDW 13.9 Plt Count 150 MPV 9.8 Immature Gran % 0.5 Neutrophils % 72.6 Lymphocytes % 17.7 Monocytes % 6.3 Eosinophils % 2.5 Basophils % 0.4 Nucleated RBC % 0.0 Absolute Neutrophils 9.72 H Absolute Lymphocytes 2.37 Absolute Monocytes 0.84 H Absolute Eosinophils 0.33 Absolute Basophils 0.05 Sodium 135 L Potassium 4.3 Chloride 104 Carbon Dioxide 21.7 Anion Gap 9.3 BUN 23 H Creatinine 1.6 H Est GFR (CKD-EPI 2020) 42.22 Glucose 99 Calcium 9.2 Magnesium Total Bilirubin AST ALT Alkaline Phosphatase Troponin I < 50 Total Protein Albumin Urine Color Urine Clarity Urine pH Ur Specific [place] Urine Protein Urine Ketones Urine Blood Urine Nitrite Urine Bilirubin Urine Urobilinogen Ur Leukocyte Esterase Urine Glucose Urine Opiates Screen Urine Methadone Screen Ur Barbiturates Screen Ur Tricyclics Screen Ur Amphetamines Screen U Benzodiazepines Scrn Urine Cocaine Screen Ur THC Screen 03/30/23 03/30/23 03/30/23 11:54 11:54 10:55 WBC 8.87 RBC 5.19 Hgb 16.3 Hct 47.7 MCV 92 MCH 31.4 MCHC 34.2 RDW 14.1 Plt Count 143 MPV 9.8 Immature Gran % 0.7 Neutrophils % 73.0 Lymphocytes % 15.9 Monocytes % 6.7 Eosinophils % 3.2 Basophils % 0.5 Nucleated RBC % 0.0 Absolute Neutrophils 6.49 Absolute Lymphocytes 1.41 Absolute Monocytes 0.59 Absolute Eosinophils 0.28 Absolute Basophils 0.04 Sodium Potassium Chloride Carbon Dioxide Anion Gap BUN Creatinine Est GFR (CKD-EPI 2020) Glucose Calcium Magnesium Total Bilirubin AST ALT Alkaline Phosphatase Troponin I Total Protein Albumin Urine Color Yellow Urine Clarity Clear Urine pH 7.0 Ur Specific [place] 1.020 Urine Protein Negative Urine Ketones Negative Urine Blood Negative Urine Nitrite Negative Urine Bilirubin Negative Urine Urobilinogen 0.2 Ur Leukocyte Esterase Negative Urine Glucose Negative Urine Opiates Screen Negative Urine Methadone Screen Negative Ur Barbiturates Screen Negative Ur Tricyclics Screen Negative Ur Amphetamines Screen Negative U Benzodiazepines Scrn Negative Urine Cocaine Screen Negative Ur THC Screen Positive A 03/30/23 10:55 WBC RBC Hgb Hct MCV MCH MCHC RDW Plt Count MPV Immature Gran % Neutrophils % Lymphocytes % Monocytes % Eosinophils % Basophils % Nucleated RBC % Absolute Neutrophils Absolute Lymphocytes Absolute Monocytes Absolute Eosinophils Absolute Basophils Sodium 135 L Potassium 4.4 Chloride 103 Carbon Dioxide 25.5 Anion Gap 6.5 BUN 24 H Creatinine 1.7 H Est GFR (CKD-EPI 2020) 39.26 Glucose 95 Calcium 9.1 Magnesium 1.9 Total Bilirubin 0.5 AST 20 ALT 28 Alkaline Phosphatase 56 Troponin I < 50 Total Protein 6.3 L Albumin 3.6 Urine Color Urine Clarity Urine pH Ur Specific [place] Urine Protein Urine Ketones Urine Blood Urine Nitrite Urine Bilirubin Urine Urobilinogen Ur Leukocyte Esterase Urine Glucose Urine Opiates Screen Urine Methadone Screen Ur Barbiturates Screen Ur Tricyclics Screen Ur Amphetamines Screen U Benzodiazepines Scrn Urine Cocaine Screen Ur THC Screen PFSH All Active Problems (Updated 03/30/23 @ 16:49 by Jojo Luna NP) Constipation (Acute) Syncope (Chronic) Osteopenia (Acute) Sacral back pain (Acute) referred to Sp[facility] Clinic per [place] 01/02/23 [facility] [place] current use of proton pump inhibitor therapy (Acute) Conductive hearing loss, external ear (Acute) Impacted cerumen, bilateral (Acute) Left hip pain (Acute) Corns and callosities (Acute) Nail dystrophy (Acute) History of vascular surgery (Chronic) Stenting of L internal carotid artery, 06/28, [facility] [place], started plavix Eczema (Acute) start narrow band UVB bid at [facility] Arteriosclerosis of left carotid artery (Acute) 05/22/22 [facility] Stenosis of carotid artery (Acute) 05/22/22 [facility] [place] History of hemoptysis (Acute) Onychomycosis (Acute 04/23/22) 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 Lorazepam tx Acute dyspnea (Acute) H/O endoscopy (Chronic) 11/2020 Sinusitis, chronic 11/04/21 [place] low grade esophageal ulcer, 2 cm Hiatal Hernia Obstructive sleep apnea (Chronic ~2017) Moderate-PAP therapy Hip osteoarthritis (Acute) Cough (Acute) per Nikki 02/10/2020 started Breo inhaler 03/02/20 F/U with Dr Jordan, next ov 04/06/20 CKD (chronic kidney disease) (Acute) White coat syndrome with hypertension (Chronic) Tests in the 120s at home Chronic cough (Acute) Chronic pansinusitis (Acute) Headache (Acute) Depressive disorder (Acute) Iron deficiency anemia (Acute) Diverticulitis (Chronic) GERD (gastroesophageal reflux disease) (Chronic) Diverticular disease of colon (Acute) Prostate cancer (Chronic) Aortic valve disorder (Acute) Cerebrovascular disease (Acute) Malaise and fatigue (Acute) Dizziness and giddiness (Acute) Peripheral vascular disease (Chronic) Hypercholesterolemia (Acute) HTN (hypertension) (Chronic) Medical History History of pyloric stenosis as a child Surgical History H/O aortic valve replacement H/O colonoscopy (~11/04/21) 11/04/21 Dr Tyler H/O hemorrhoidectomy H/O shoulder surgery History of colon resection History of hernia repair History of tonsillectomy Family History Father Substance abuse Tuberculosis Mother Breast cancer Heart disease Sister Cancer Heart disease Hypertension Social History Smoking/Tobacco Use Status: Former Tobacco Use Quit Date: 09/07/1964 Pack- years: 42 Tobacco: How many years used: 14 Smoking risk assessment performed?: Yes Alcohol Intake: current Alcohol Intake frequency: holidays/special occasions only Alcohol type: wine Drug use: Never Substance use type: does not use Adopted: No Caregiver/Support person: No Foster care: No Household members: spouse Housing: house Number of Children: 1 Education Level: college Do you need help understanding health information?: Never 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 Pets and animals: No Sexually active: Yes Do you think of yourself as: straight/heterosexual Current gender identity: male What is your relationship status?: How often do you talk on the phone with friends or family?: three or more times per week How often do you get together with friends or relatives?: never How often do you attend yazidism or evangelical services?: decline to answer Do you belong to any clubs or organized social groups?: no Panel score (0-1 are the most socially isolated patients): 2 What type of physical activity do you participate in: other Details: 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
[2023-03-31 09:34] VITALS: PULSE 72
--- NOTE | 2023-03-31 10:42 | PT.INIE ---
Date of service: 03/31/23 Time of Service: 10:10 PT Notes Visit Reasons: Syncope Physical Therapy Inpatient Initial Evaluation Date: 03/31/2023 Referring Doctor: Jojo Luna NP PT Orders: PT CONSULT: Eval/Treat Precautions: Fall. Standard. Activity as tolerated. Patient Profile/Admitting Diagnosis: Gustabo is an 82-year-old male who presented to the ED on 03/30/2023 due to generalized weakness and head trauma during the fall. Patient is admitted to [facility] for observation of syncope, spinal stenosis, and constipation. PMHX: All Active Problems?(Updated 03/30/23 @ 16:49 by Jojo Luna NP) Constipation (Acute) Syncope (Chronic) Osteopenia (Acute) Sacral back pain (Acute) [place] [facility] [place] [facility] [place] current use of proton pump inhibitor therapy (Acute) Conductive hearing loss, external ear (Acute) Impacted cerumen, bilateral (Acute) Left hip pain (Acute) Corns and callosities (Acute) Nail dystrophy (Acute) History of vascular surgery (Chronic) Stenting of L internal carotid artery, 06[place]28[place] [facility] [place] plavix Eczema (Acute) start narrow band UVB bid at [facility] Arteriosclerosis of left carotid artery (Acute) 05/22/22 [place]ascular Stenosis of carotid artery (Acute) 05[place]22/22 [facility] [place] history of hemoptysis (Acute) Onychomycosis (Acute 04/23/22) 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 Lorazepam txAcute dyspnea (Acute) H/O endoscopy (Chronic) 11/2020 Sinusitis, chronic 11/04/21? [place] low grade esophageal ulcer, 2 cm Hiatal Hernia Obstructive sleep apnea (Chronic ~2018) Moderate-PAP therapyHip osteoarthritis (Acute) Cough (Acute) per Nikki 02/10/2020 started Breo inhaler 03/02/20 F/U with Dr Jordan, next ov 04/06/20 CKD (chronic kidney disease) (Acute) White coat syndrome with hypertension (Chronic) Tests in the 120s at homeChronic cough (Acute) Chronic pansinusitis (Acute) Headache (Acute) Depressive disorder (Acute) Iron deficiency anemia (Acute) Diverticulitis (Chronic) GERD (gastroesophageal reflux disease) (Chronic) Diverticular disease of colon (Acute) Prostate cancer (Chronic) Aortic valve disorder (Acute) Cerebrovascular disease (Acute) Malaise and fatigue (Acute) Dizziness and giddiness (Acute) Peripheral vascular disease (Chronic) Hypercholesterolemia (Acute) HTN (hypertension) (Chronic) Medical History? History of pyloric stenosis as a child Surgical History? H/O aortic valve replacement H/O colonoscopy (~11/04/21) 11/04/21 Dr Tyler H/O hemorrhoidectomy H/O shoulder surgery History of colon resection History of hernia repair History of tonsillectomy Social History/Home Situation: Lives in a private home with . Independent of all aspects of ADLs prior to admission. 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 Equipment Owned/DME: None Subjective: States that he is fine now and is hoping to go home today. Agreeable to PT evaluation. Objective: General Observation: Resting in bed. No lines. Mental Status: Alert and oriented as to person, place, time, and purpose. Able to pay attention, focus, and respond appropriately. Pain: Denies Vital Signs: Within normal limits is closely monitored by nursing staff ROM: Right Upper Extremity: Shoulder Flexion WFL. Shoulder abduction WFL. Elbow flexion WFL. Wrist flexion WFL. Functional opening and closing of hand WFL. Left Upper Extremity: Shoulder Flexion WFL. Shoulder abduction WFL. Elbow flexion WFL. Wrist flexion WFL. Functional opening and closing of hand WFL. Right Lower Extremity: Hip flexion WFL. Hip abduction WFL. Knee flexion WFL. Ankle dorsiflexion WFL. Ankle plantarflexion WFL. Left Lower Extremity: Hip flexion WFL. Hip abduction WFL. Knee flexion WFL. Ankle dorsiflexion WFL. Ankle plantarflexion WFL. Strength: Right Upper Extremity: Shoulder flexors 4/5. Shoulder abductors 4/5. Elbow flexors 5/5. Elbow extensors 5/5. Patient Scheduling Manager strong. Left Upper Extremity: Shoulder flexors 4/5. Shoulder abductors 4/5. Elbow flexors 5/5. Elbow extensors 5/5. Patient Scheduling Manager strong. Right Lower Extremity: Hip flexors 4/5. Hip abductors 4/5. Knee flexors 5/5. Knee extensors 5/5. Ankle dorsiflexors 5/5. Ankle plantarflexors 5/5. Left Lower Extremity: Hip flexors 4/5. Hip abductors 4/5. Knee flexors 5/5. Knee extensors 5/5. Ankle dorsiflexors 5/5. Ankle plantarflexors 5/5. Bed Mobility/Transfers: Rolling independent Supine to sit independent Sit to supine independent Sit to stand independent Stand to sit independent Bed to reclining chair independent Reclining chair to bed independent Gait: 600 feet independently, no AD. No symptoms reported. Stairs: Independently with 6x 4inch steps and 4 x 6-inch steps without holding onto B rails with step over step pattern. Balance: Static Sitting: Normal Dynamic Sitting: Normal Static Standing: Good Dynamic Standing: Good 4-stage balance test: Able to maintain all four positions for 10 seconds. Special Tests: Mobility Limitations Standardized Measure [facility] 6 clicks Basic Mobility Inpatient Short Form: Raw Score: 24 [facility] Score: 0% deficit Informed Consent/Education: Patient was instructed in purpose of PT consult. Assessment: PT evalaution only. No services needed at this time. Patient is independent with all transfers and level/stairs ambulation without AD. Patient is assessed [place] a 68262 low complexity based on the following: History: 82-year-old male with past medical history as indicated above Examination: As above Presentation: Stable Decision Makin low complexity Goals: N/A. PT evaluation only. Plan of Care/Treatment Plan: N/A. PT evaluation only. DISCHARGE RECOMMENDATIONS: [X] Home with no services. Home when medically cleared by hospitalist. [] Home with services [specify] [] Home with outpatient PT [] [] SNF for continued rehabilitation [] [] [facility] [] [] SNF versus LTC based on ability to participate and progress [] TREATMENT CODE/TIME: 75392 x 25 minutes beginning at 10:10 AM. Thank you for the opportunity to participate in the care of this patient. Alison Soares PT, DPT, CLT [facility] [place], [place]
[2023-03-31 11:10] VITALS: BP 156/79; PULSE 72; RESP 16; TEMP 36.4; O2SAT 98
== END 2023-03-31 11:56 | disposition home or self-care (01) ==
LOC: ER 14:09 → MS 03-31 07:35
PROVIDERS: Nurse Practitioner Acute Care; Admitting Provider Family Medicine; Emergency Provider Student in an Organized Health Care Education/Training Program; PCP Family Medicine; Visit Provider Family Medicine
DX: R55 Syncope and collapse (principal); I35.0 Nonrheumatic aortic (valve) stenosis; I67.9 Cerebrovascular disease, unspecified; N18.9 Chronic kidney disease, unspecified; F32.A Depression, unspecified; K57.30 Diverticulosis of large intestine without perforation or abscess without bleeding; K21.9 Gastro-esophageal reflux disease without esophagitis; I12.9 Hypertensive chronic kidney disease with stage 1 through stage 4 chronic kidney disease, or unspecified chronic kidney disease; G47.33 Obstructive sleep apnea (adult) (pediatric); I73.9 Peripheral vascular disease, unspecified; D50.9 Iron deficiency anemia, unspecified; Z95.2 Presence of prosthetic heart valve; K59.00 Constipation, unspecified; I65.22 Occlusion and stenosis of left carotid artery; J45.909 Unspecified asthma, uncomplicated; F51.04 Psychophysiologic insomnia; G47.61 Periodic limb movement disorder; J32.4 Chronic pansinusitis; R05.3 Chronic cough; C61 Malignant neoplasm of prostate; E78.00 Pure hypercholesterolemia, unspecified; Z79.899 Other long term (current) drug therapy; M48.062 Spinal stenosis, lumbar region with neurogenic claudication
CPT/HCPCS: 36415; 80048; 80053; 80307; 93005; 97161; 99285; 70450; 71045; 81003; 83735; 84484; 85025; 93010; 99222; 99238; G0378

== ENCOUNTER 2023-05-14 05:58 | Day surgery (SDC) | payer MEDICARE, OTHER, SELFPAY ==
[2023-05-14] VITALS (8 sets, daily range): BP systolic 108–145; BP diastolic 52–88; PULSE 63–71; RESP 16–18; TEMP 36–36.6; O2SAT 94–97; BMI 25.7
--- NOTE | 2023-05-14 06:57 | ANES.PREOP_ITS ---
General Info Date of Service Date Performed: 05/14/23 Height: 5 ft 5 in Weight: 70.1 kg Body Mass Index (BMI): 25.7 Surgical Procedure: Operation Date: 05/14/23 07:40 Proposed Procedure Side Surgeon p Bronchoscopy w/VIC Hollins MD Meds Allergies and Home Medications Allergies Allergy/AdvReac Type Severity Reaction Status Date / Time metronidazole Allergy Intermediate Skin Rash, Verified 05/14/23 06:17 swelling, itchy sulfamethoxazole Allergy turns red Verified 05/14/23 06:17 [From Bactrim] trimethoprim [From Bactrim] Allergy turns red Verified 05/14/23 06:17 ropinirole AdvReac Severe insomina, Verified 05/14/23 06:17 weakness, intense fatigue zolpidem [From Ambien] AdvReac sleep Verified 05/14/23 06:17 walk Home Medication Medication Instructions Recorded cholecalciferol (vitamin D3) 50 2,000 unit PO DAILY 09/03/19 mcg (2,000 unit) tablet (Vitamin D3) coenzyme Q10 100 mg capsule (Co 300 mg PO DAILY 09/03/19 Q-10) fish, borage, flaxseed oils-omega 1 cap PO DAILY 09/03/19 3,6,9 comb no.1 1,200 mg capsule (Geronimo 3-6-9) lactobacillus combination no.4 3 3,000 mmu cells PO DAILY 09/03/19 billion cell capsule (Probiotic) lycopene 10 mg capsule 10 mg PO DAILY 09/03/19 vitamin B complex 1 cap PO DAILY 09/03/19 mucus clearing device #1 ea 03/05/20 hawthorn 500 mg capsule 500 mg PO DAILY 04/26/21 magnesium oxide 400 mg (241.3 mg 400 mg PO BID #0 tabs 09/24/21 magnesium) tablet burdock root 500 mg capsule 500 mg PO DAILY 12/03/21 dgl lozenges See Rx Instructions .Route .COMPLEX 12/03/21 aspirin 81 mg capsule 81 mg PO DAILY 12/05/21 Konsyl 6 mg PO DAILY 06/05/22 triamcinolone acetonide 0.147 1 spray topical BID PRN itching 08/11/22 mg/gram topical aerosol (Kenalog) #63 grams rosuvastatin 20 mg tablet See Rx Instructions .Route 11/10/22 .COMPLEX #90 tabs lorazepam 1 mg tablet 1 mg PO QHS PRN insomnia/back 11/17/22 spasms #30 tabs pantoprazole 40 mg tablet,delayed 40 mg PO BID #180 tabs 01/02/23 release sodium chloride 0.65 % nasal spray 1 spray intranasal ONCE #50 mL 01/12/23 aerosol (Marianna Saline) losartan 50 mg tablet 50 mg PO DAILY #90 tabs 02/20/23 sennosides 8.6 mg capsule (senna) 8.6 mg PO DAILY PRN constipation 04/06/23 #60 caps albuterol sulfate 2.5 mg/3 mL 2.5 mg (3 mL) inhalation Q4H #540 04/07/23 (0.083 %) solution for nebulization mL Current Visit Medications: Current Medications Generic Name Dose Route Start Last Admin Trade Name Freq PRN Reason Stop Dose Admin Ringer's Solution 1,000 mls @ 80 mls/hr 05/14/23 06:00 IV 06/12/23 23:59 INFUSION DEEPTHI IV Miscellaneous Supplies 1 each 05/14/23 06:00 Iv Access IV 06/12/23 23:59 DIRECTED DEEPTHI Sodium Chloride 0 ml 05/14/23 06:00 Normal Saline Flush 10 Ml Syr IV 06/12/23 23:59 PRN PRN Sodium Chloride 0 ml 05/14/23 06:00 Normal Saline 10 Ml Vial IJ 06/12/23 23:59 DIRECTED PRN Sterile Water 0 ml 05/14/23 06:00 Water,Injection,Sterile 10 Ml Vial IJ 06/12/23 23:59 DIRECTED PRN PFSH Active Problems Active Problems: Problem Status Onset Code Spondylolisthesis at L4-L5 level M43.16 Syncope R55 Constipation K59.00 Syncope R55 Osteopenia M85.80 Sacral back pain M53.3 Long-term current use of proton pump inhibitor therapy Z79.899 Conductive hearing loss, external ear H90.2 Impacted cerumen, bilateral H61.23 Left hip pain M25.552 Corns and callosities L84 Nail dystrophy L60.3 History of vascular surgery Z98.890 Eczema L30.9 Arteriosclerosis of left carotid artery I65.22 Stenosis of carotid artery I65.29 History of hemoptysis Z87.09 Onychomycosis 04/23/22 B35.1 Lichen planus 04/23/22 L43.9 Impacted cerumen, bilateral H61.23 Lightheadedness R42 New daily persistent headache G44.52 Balance disorder R26.89 Tubular adenoma 11/04/21 D36.9 Dizziness R42 History of diverticulitis Z87.19 Degenerative disc disease Chronic sinusitis J32.9 Asthma J45.909 H/O aortic valve replacement Z95.2 Jaw pain R68.84 Other fatigue R53.83 Psychophysiologic insomnia F51.04 Periodic limb movement disorder G47.61 Insomnia G47.00 Acute dyspnea R06.00 H/O endoscopy Z98.890 Obstructive sleep apnea ~2018 G47.33 Hip osteoarthritis M16.9 Cough R05 CKD (chronic kidney disease) N18.9 White coat syndrome with hypertension I10 Chronic cough R05 Chronic pansinusitis J32.4 Headache R51 Depressive disorder F32.9 Iron deficiency anemia D50.9 Diverticulitis K57.92 GERD (gastroesophageal reflux disease) K21.9 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 Prostate cancer C61 Aortic valve disorder I35.9 Cerebrovascular disease I67.9 Malaise and fatigue R53.81, R53.83 Dizziness and giddiness R42 Peripheral vascular disease I73.9 Hypercholesterolemia E78.00 HTN (hypertension) I10 Medical History Medical History History of pyloric stenosis as a child Surgical History Surgical History H/O aortic valve replacement H/O colonoscopy (~11/04/21) 11/04/21 Dr Tyler H/O hemorrhoidectomy H/O shoulder surgery History of colon resection History of hernia repair History of tonsillectomy Tobacco Smoking/Tobacco Use Status: Former Tobacco Use Passive smoking exposure: No Alcohol Alcohol Intake: current Alcohol intake frequency: holidays/special occasions only Alcohol type: wine Substance Use Substance use: Never Substance use type: does not use Vital Signs and Lab Results Vital Signs Most Recent Vital Signs in EMR: Most Recent Vital Signs Temp Pulse Resp BP Pulse Ox 36.6 C 69 18 145/60 H 96 05/14/23 06:05 05/14/23 06:05 05/14/23 06:05 05/14/23 06:05 05/14/23 06:05 Lab Results Blood Type / Crossmatch: No Data to Display Complete Blood Count: No Data to Display Complete Metabolic Panel: No Data to Display Liver Function Panel: No Data to Display Coagulation Panel: No Data to Display Cardiac Panel: No Data to Display Arterial Blood Gas: No Data to Display Venous Blood Gas: No Data to Display Pancreas Panel: No Data to Display Thyroid Panel: No Data to Display Infectious Disease: No Data to Display Blood Cultures: No Data to Display Toxicology Panel: No Data to Display Imaging and Studies Imaging and Studies Study information below may be from another EMR and interpreted by another provider. Please see original notes in EMR for more complete details. EKG Summary: 03/29 Sinus rhythm...normal P axis, V-rate 50- 99 Left atrial enlargement...P, P'>60mS, <-0.15mV V1 Otherwise normal Echocardiogram Summary: 09/29: EF 60%, trace AR across biopros valve. mild TR, trace MR. Carotid Artery Summary:: 08/27 Significant plaque bilaterally, most prominent in the left carotid bulb and proximal left ICA where there are elevated velocities indicating stenosis greater than 70 percent. A lesser amount of stenosis is seen on the opposite- right side (less than 50 percent). Both vertebral arteries are patent and exhibit antegrade flow. Anesthesia Assessment and Plan Anesthesia History Personal History: No History of Anesthesia Complications Family History: No Family History of Anesthesia Complications Exercise Tolerance Exercise Tolerance: Metabolic Equivalents>4 Pertinent Negatives Pertinent Negatives: No Symptoms of GERD (Medication controlled) Cardiac & Pulmonary Exam Cardiac Exam: Normal S1/S2 Heart Sounds Pulmonary Exam: Clear Bilateral Breath Sounds Implantable Cardiac Device Does patient have a Pacemaker or an ICD?: No Airway Exam Known Difficult Airway: No Mallampati Class: 2 Mouth Opening: Normal (> 3cm) Thyromental Distance: Greater than 3 cm Neck Range of Motion: Full ROM Neck Circumference: Normal Teeth Condition: Normal Dentition ASA Classification ASA Score: ASA 3 Emergency Case?: No NPO Status NPO Status: NPO Clears >2 hours, Solids >8 hours Anesthesia Plan Resuscitation Status: Full Code Anesthesia Technique: General Anesthesia Airway Planned: Endotracheal Tube Monitors Used: Standard Monitors Preoperative Comments:: 82 yo male for bronch. Sig PMHx: HTN, syncope, spinal stenosis, L ICA stenting, asthma, GARIMA, CKD, GERD, CVD, PVD Previous Anes: - [facility] carotid, mac 4 grade 1.
[2023-05-14] MEDS: Lactated Ringers 1,000 ML 80 ML IV (07:00)
--- NOTE | 2023-05-14 09:18 | W.PREOPHP ---
Assessment and Plan Assessment and plan (1) Chronic cough: Status: Acute Assessment and plan: 82 yo presenting today for flexible bronchoscopy with BAL. He is stable to proceed with procedure as planned. History of Present Illness Narrative: This is a 82 yo who is planned for flexible bronchoscopy with BAL due to chronic cough and a concern for possible MAC infection. His symptoms are stable and unchanged since our last in person clinic visit. PFSH All Active Problems Diverticulitis (Chronic) GERD (gastroesophageal reflux disease) (Chronic) HTN (hypertension) (Chronic) Hypercholesterolemia (Acute) Peripheral vascular disease (Chronic) Dizziness and giddiness (Acute) Malaise and fatigue (Acute) Cerebrovascular disease (Acute) Aortic valve disorder (Acute) Prostate cancer (Chronic) Diverticular disease of colon (Acute) Iron deficiency anemia (Acute) Depressive disorder (Acute) Headache (Acute) Chronic pansinusitis (Acute) Chronic cough (Acute) White coat syndrome with hypertension (Chronic) Tests in the 120s at home CKD (chronic kidney disease) (Acute) Cough (Acute) per Nikki 02/10/2020 started Breo inhaler 03/02/20 F/U with Dr Jordan, next ov 04/06/20 Hip osteoarthritis (Acute) Obstructive sleep apnea (Chronic ~2017) Moderate-PAP therapy H/O endoscopy (Chronic) 11/2020 Sinusitis, chronic 11/04/21 LA low grade esophageal ulcer, 2 cm Hiatal Hernia Acute dyspnea (Acute) Insomnia (Chronic) Sleep Clinic. Lorazepam tx Periodic limb movement disorder (Acute) 04/01/21-sleep clinic, Yesica Hopkins MD Psychophysiologic insomnia (Acute) 04/01/21-sleep clinic, Yesica Hopkins MD Other fatigue (Acute) 04/01/21-sleep clinic, Yesica Hopkins MD Jaw pain (Acute) H/O aortic valve replacement (Acute) Asthma (Chronic) Chronic sinusitis (Acute) Degenerative disc disease (Acute) History of diverticulitis (Acute) Dizziness (Acute) Tubular adenoma (Acute 11/04/21) Balance disorder (Acute) New daily persistent headache (Acute) Lightheadedness (Acute) Constipation (Acute) Impacted cerumen, bilateral (Acute) Lichen planus (Acute 04/23/22) Onychomycosis (Acute 04/23/22) History of hemoptysis (Acute) Stenosis of carotid artery (Acute) 05/22/22 [facility] [place] Vascular Arteriosclerosis of left carotid artery (Acute) 05/22/22 Vascular Eczema (Acute) start narrow band UVB bid at [facility] History of vascular surgery (Chronic) Stenting of L internal carotid artery, 06/28, [facility] [place], started plavix Nail dystrophy (Acute) Corns and callosities (Acute) Left hip pain (Acute) Impacted cerumen, bilateral (Acute) Conductive hearing loss, external ear (Acute) Long-term current use of proton pump inhibitor therapy (Acute) Sacral back pain (Acute) referred to Spine Clinic per note 01/02/23 [facility] [place] Osteopenia (Acute) Syncope (Chronic) Syncope (Chronic) Spondylolisthesis at L4-L5 level (Acute) Medical History History of pyloric stenosis as a child Surgical History (Updated 05/14/23 @ 07:13 by Kacey Sherman) H/O aortic valve replacement H/O colonoscopy (~11/04/21) 11/04/21 Dr Tyler H/O hemorrhoidectomy H/O shoulder surgery History of carotid endarterectomy 2020 History of colon resection History of hernia repair History of tonsillectomy Family History Father Substance abuse Tuberculosis Mother Breast cancer Heart disease Sister Cancer Heart disease Hypertension Social History Smoking/Tobacco Use Status: Former Tobacco Use Quit Date: 09/07/1964 Pack-years: 42 Tobacco: How many years used: 14 Smoking risk assessment performed?: Yes Alcohol Intake: current Alcohol Intake frequency: holidays/special occasions only Alcohol type: wine Drug use: Never Substance use type: does not use Adopted: No Caregiver/Support person: No Foster care: No Household members: spouse Housing: house Number of Children: 1 Education Level: college Do you need help understanding health information?: Never 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 Pets and animals: No Sexually active: Yes Do you think of yourself as: straight/heterosexual Current gender identity: male What is your relationship status?: How often do you talk on the phone with friends or family?: three or more times per week How often do you get together with friends or relatives?: never How often do you attend jehovah's witness or anabaptist services?: decline to answer Do you belong to any clubs or organized social groups?: no Panel score (0-1 are the most socially isolated patients): 2 What type of physical activity do you participate in: other Details: [employer] Healthcare Consultant, Shalini Duration: 60-90 minutes/day Frequency: 1-2 times per week Seatbelt use: always Drive intox or ride w/intox cdl bulk driver: No Working smoke detector in home: Yes Carbon monox detector in home: Yes Do you feel safe at home: Yes Do you feel safe in your relationship?: Yes Meds Allergies and Home Medications Allergies Allergy/AdvReac Type Severity Reaction Status Date / Time metronidazole Allergy Intermediate Skin Rash, Verified 05/14/23 06:17 swelling, itchy sulfamethoxazole Allergy turns red Verified 05/14/23 06:17 [From Bactrim] trimethoprim [From Bactrim] Allergy turns red Verified 05/14/23 06:17 ropinirole AdvReac Severe insomina, Verified 05/14/23 06:17 weakness, intense fatigue zolpidem [From Ambien] AdvReac sleep Verified 05/14/23 06:17 walk Home Medications Medication Instructions Recorded Confirmed Type cholecalciferol (vitamin D3) 50 2,000 unit PO DAILY 09/03/19 05/14/23 History mcg (2,000 unit) tablet (Vitamin D3) coenzyme Q10 100 mg capsule (Co 300 mg PO DAILY 09/03/19 05/14/23 History Q-10) fish, borage, flaxseed oils-omega 1 cap PO DAILY 09/03/19 05/14/23 History 3,6,9 comb no.1 1,200 mg capsule (Tatum 3-6-9) lactobacillus combination no.4 3 3,000 mmu cells PO DAILY 09/03/19 05/14/23 History billion cell capsule (Probiotic) lycopene 10 mg capsule 10 mg PO DAILY 09/03/19 05/14/23 History vitamin B complex 1 cap PO DAILY 09/03/19 05/14/23 History mucus clearing device #1 ea 03/05/20 05/12/23 History hawthorn 500 mg capsule 500 mg PO DAILY 04/26/21 05/14/23 History magnesium oxide 400 mg (241.3 mg 400 mg PO BID #0 tabs 09/24/21 05/14/23 Rx magnesium) tablet burdock root 500 mg capsule 500 mg PO DAILY 12/03/21 05/14/23 History dgl lozenges See Rx Instructions .Route .COMPLEX 12/03/21 05/12/23 History aspirin 81 mg capsule 81 mg PO DAILY 12/05/21 05/14/23 History Konsyl 6 mg PO DAILY 06/05/22 05/12/23 History triamcinolone acetonide 0.147 1 spray topical BID PRN itching 08/11/22 05/12/23 Rx mg/gram topical aerosol (Kenalog) #63 grams rosuvastatin 20 mg tablet See Rx Instructions .Route 11/10/22 05/12/23 Rx .COMPLEX #90 tabs lorazepam 1 mg tablet 1 mg PO QHS PRN insomnia/back 11/17/22 05/12/23 Rx spasms #30 tabs pantoprazole 40 mg tablet,delayed 40 mg PO BID #180 tabs 01/02/23 05/14/23 Rx release sodium chloride 0.65 % nasal spray 1 spray intranasal ONCE #50 mL 01/12/23 05/12/23 Rx aerosol (Argyle Saline) losartan 50 mg tablet 50 mg PO DAILY #90 tabs 02/20/23 05/14/23 Rx sennosides 8.6 mg capsule (senna) 8.6 mg PO DAILY PRN constipation 04/06/23 05/12/23 Rx #60 caps albuterol sulfate 2.5 mg/3 mL 2.5 mg (3 mL) inhalation Q4H #540 04/07/23 05/14/23 Rx (0.083 %) solution for nebulization mL Exam Narrative Exam Narrative: Gen:?NAD, normal respiratory effort, well-nourished HENT:?PERRL Chest:?No respiratory distress, normal appearance of chest, clear to auscultation bilaterally, no crackles or wheezes, normal inspiratory effort Heart:?regular rate and rhythym, no murmurs, rubs or gallops Abdomen:?Non-distended, soft, non tender Extremities:?No clubbing, edema, cyanosis, rashes Neuro:?AAOx3 , non focal Psych:?cooperative, appropriate mental affect Results Last Vital Signs Temp 36.6 C 09/07/23 06:05 Pulse 69 05/14/23 06:05 Resp 18 05/14/23 06:05 BP 145/60 H 05/14/23 06:05 Pulse Ox 96 05/14/23 06:05
[2023-05-14] MEDS: Lidocaine 1% Pres-Free 5 ML VIAL (11:00)
--- NOTE | 2023-05-14 11:10 | PAPNONF_PTH ---
PATIENT: Gustabo Avelar LOC: [facility] U#:[id number] AGE/SX: 82/M ROOM: RE05/14/[address]: Ceci Hollins MD : 1940 BED: DIS: 05/14/2023 SPEC #: [id number] RECD: 05/14/23 12:25 STATUS: CHARITY RENolvia #: [id number] EDMUND: 05/14/23 11:[address]: Ceci Hollins DEPT: [facility] Cytology RECD BY: Cristina Lambert ENTERED: 05/14/23 12:35 SP TYPE: PAPKARENF MARCELLE DR: Umesh Covarrubias DO Tissues: 1 - BODY FLUID CYTO(NOT S/U/N/EM)[facility] 2 - BODY FLUID CYTO(NOT S/U/N/EM)[facility] Procedures: BODY FLUID CYTO(NOT SPU/UR/NIP/ENDOM)[facility] Comments: [id number] (TV = 5 ML) (FRESH) (REFRIGERATED)
--- NOTE | 2023-05-14 11:58 | W.ANESPOSTOP ---
Postoperative Evaluation Date, Time and Location Date Performed: 05/14/23 Time Performed: 11:58 Patient Location: Day Surgery Unit Vital Signs Most Recent Imported Vital Signs: Most Recent Vital Signs Temp Pulse Resp BP Pulse Ox 36.6 C 67 16 130/88 96 05/14/23 11:33 05/14/23 11:47 05/14/23 11:47 05/14/23 11:47 05/14/23 11:47 Pain Score Most Recent Pain Score: Most Recent Pain Score Pain Level 0 05/14/23 11:47 Assessment Mental Status: Awake (Alert & Oriented to Patient Baseline) Airway and Respiratory Function: Patent airway with normal (patient baseline) respiratory exam Cardiovascular Function: Hemodynamically Stable Hydration Status: Adequately Hydrated Nausea & Vomiting: No Nausea or Vomiting Pain: Pt. Denies Any Pain Peripheral Nerve Block: Patient did not receive a nerve block
--- NOTE | 2023-05-14 12:01 | ROE_ITS ---
Date of service: 05/14/23 Time of Service: 10:30 Operative Note Operative Note Refer to Anesthesia Record Procedure Description: Bronchoscopy Indication:Chronic Cough Procedure performed: Flexible bronchoscopy with BAL and endobronchial brushings Sedation plan: general anesthesia Informed consent was obtained after the risks and benefits or the procedure were discussed. Anesthesia sedated and intubated the patient. A proper and complete OR compliant time out was performed. The therapeutic 6.2mm Olympus bronchoscope was inserted through the endotracheal tube into the airways, where 3cc in total of 1% topical lidocaine was used the anesthetize the airways. The trachea was midline and without lesion or injury. The mucosa appeared friable, with diverticuli. The gabriel was sharp. There was evidence of b ronchomalacia. All bronchial subsegments were visualized within each lobe and showed abnormal anatomical airways variants, with bronchomalacia present, primarily on the left mainstem bronchus. The left mainstem demonstrated an endobronchial nodule that appeared to be external compression without a hypervascularized appearance. The left mainstem also has a very acute angle anatomically. Endobronchial brushings were take of this area. In both the left and right sided airways other similarly appearing nodules were visualized, again appearing most consistent with external compression. A bronchoalveolar lavage was performed in the AARON. A total of 120cc of saline was administered with a return of 8cc. There was severe airway compression with application of any negative pressure creating a very difficult mechanical BAL procedure and lack of BAL return. The fluid was slightly cloudy in appearance. The bronchoscope was then removed and the case terminated. The patient was taken to PACU in stable condition. Samples collected:AARON BAL, bronchial washings, Left mainstem endobronchial brushing Testing ordered:cell diff, bacterial, AFB, fungal cultures. Cytopathology. Complications:None Ceci Hollins MD Pulmonary & Critical Care Medicine
[2023-05-15 08:52] LABS: Eosinophils Fluid Relative 4 %; Lymphocytes Fluid Relative 2 %; Mono/Macrophage Fluid Relative 16 %; Neutrophils Fluid Relative 78 %
[2023-06-11 11:21] LABS: Fungus Smear No Fungi Seen
[2023-06-11 11:22] LABS: Fungus Smear No Fungi Seen
== END 2023-05-14 13:05 | disposition home or self-care (01) ==
PROVIDERS: PCP Family Medicine; Visit Provider Student in an Organized Health Care Education/Training Program
PROC: 0BJ08ZZ Inspection of Tracheobronchial Tree, Via Natural or Artificial Opening Endoscopic (ICD-10-PCS; CPT 31622; principal; 2023-05-14 10:30)
DX: R05.3 Chronic cough (principal); I10 Essential (primary) hypertension; E78.00 Pure hypercholesterolemia, unspecified; G47.33 Obstructive sleep apnea (adult) (pediatric); J84.09 Other alveolar and parieto-alveolar conditions
CPT/HCPCS: 31623; 31624; 80162; 87070; 87102; 87107; 87116; 87205; 87206; 88104; J2371; J2405; J2704

== ENCOUNTER 2023-05-20 09:44 | Outpatient (CLI) | payer MEDICARE, OTHER, SELFPAY ==
--- NOTE | 2023-05-20 06:00 | DI.RAD_ITS ---
Exam(s) XR PAIN CLINIC LUMBAR SP 2V EXAM: XR PAIN CLINIC LUMBAR SP 2V CLINICAL HISTORY: Dx: Lumbar Radiculopathy TECHNIQUE: 2D and realtime digital imaging was performed. Radiologist not present. CONTRAST MATERIAL: None. COMPARISON: No exams were available for comparison FINDINGS: Fluoroscopy was provided for pain management therapy. Please refer to procedure report or details. Radiation Exposure Index: Ka,r=22.81 mGy IMPRESSION: As above. RADIATION DOSE DELIVERED:
[2023-05-20 10:04] VITALS: BP 128/68; PULSE 70; RESP 20; TEMP 36.7; O2SAT 97
--- NOTE | 2023-05-20 10:39 | PDOC.PAIN ---
Date of service: 05/20/23 Time of Service: 10:40 Pain Managment Procedure Note Procedure Note Procedure Note: PROCEDURE NOTE LUMBAR EPIDURAL STEROID INJECTION Date of Service: May 20, 2023 Patient:Gustabo James? Provider: Andre Jenkins DO, MPH Gustabo Avelar has been referred to the [facility] for a lumbar epidural steroid injection. Pre-operative diagnosis: Lumbosacral Radiculopathy Post-operative diagnosis: Same Pre-Procedure Pain: VAS= 7/10 Comments: He was evaluated by Dr. Flor (Spine surgeon at [facility]), who recommended this procedure. I did discuss his current symptoms and MRI findings. These do correlate with the recommended procedure. The patient will follow up with Dr. Flor. Gustabo was interviewed and the medical record was reviewed.? There were no medical, pharmacologic, radiographic or other structural contraindications to attempting fluoroscopically guided Lumbar epidural steroid injection.? Risks, potential side effects, indications, and potential benefits of the procedure were reviewed with Gustabo.? Questions and concerns were addressed.? After it was clear that Gustabo was fully informed about the procedure, the printed consent form was signed by the patient and myself.? Gustabo was placed in the prone position on the fluoroscopy table and automated blood pressure cuff and pulse oximeter applied. The skin entry point for entering/approaching the epidural space for the lumbar epidural steroid injection was marked. Following thorough chlorhexadine preparation of the skin and draping and 1% lidocaine infiltration of the skin entry point and subcutaneous tissues, an 18 gauge Touhy needle was placed and advanced under fluoroscopic guidance and with loss of resistance technique into the L4-L5 epidural space. Needle tip placement and depth were aided and confirmed by fluoroscopy. There was no paresthesia or return of blood or CSF through the needle. 1 mls of Omnipaque 240 was injected with clear epidural spread confirmed with fluoroscopy. 80 mg of Depo-Medrol was? injected. This was followed by 1 ml of preservative-free normal saline to flush the steroid out of the needle. There was no unusual discomfort expressed by Gustabo. The needle was withdrawn without difficulty. (49 mls of Omnipaque was wasted) Gustabo was observed and was without hemodynamic, neurologic, or allergic reactions.? Fluoroscopic images were digitally archived. Gustabo's vital signs were stable throughout the procedure and were as recorded in nursing records. Follow up plans and appointments were discussed with Gustabo. Post procedure instruction was given as documented in nursing records and having met discharge criteria Gustabo was discharged from the [facility]. COMMENTS: No apparent complications. I did have to make several adjustments to the epidural needle as I continued to get a vascular pattern on fluoroscopy when I injected the Omnipaque. I did find a more distal and central spot within the L4-L5 interlaminar space in which there was an epidural pattern and no vascular pattern with injection of Omnipaque. Post-procedure pain: VAS= 0/10. Gustabo to contact [facility] as needed. If at least 50% improvement in pain and/or function for at least 3 months is achieved, this procedure can be repeated. I did give him a copy of the Treat Your Own Back book by Jozef Escobedo. I personally performed this entire procedure. ANDRE JENKINS DO, MPH ABPMR-subspecialty board certification in Pain Medicine [facility] [facility]
[2023-05-20 11:13] VITALS: BP 155/88; PULSE 75; RESP 14; O2SAT 98
[2023-05-20] MEDS: methylPREDNISolone ACETATE 80 MG/ML VIAL IJ (11:19)
[2023-05-20] MEDS: Omnipaque 240 MG/ML 50 ML BTL IJ (11:19)
== END 2023-05-20 09:45 | disposition home or self-care (01) ==
LOC: PC 09:44
PROVIDERS: PCP Family Medicine; Visit Provider Preventive Medicine Occupational Medicine
DX: M54.50 Low back pain, unspecified (principal); M54.17 Radiculopathy, lumbosacral region
CPT/HCPCS: 62323; 72100; J1040; Q9967

== ENCOUNTER 2023-05-22 18:35 | Outpatient (CLI) | payer MEDICARE, OTHER, SELFPAY ==
[2023-05-22 16:19] LABS: ESR 3 mm/hr (0-20)
[2023-05-22 16:56] LABS: ALT 116 U/L (16-63); AST 29 U/L (15-37); Alkaline Phosphatase 122 U/L (46-116); Anion Gap 9.2 mmol/L (3-11); BUN 28 mg/dL (7-18); Bilirubin, Total 0.7 mg/dL (0.2-1.0); CO2 22.8 mmol/L (21.0-32.0); CREATININE 1.9 mg/dL (0.70-1.30); Calcium 9.9 mg/dL (8.5-10.1); Chloride 97 mmol/L (98-107); Estimated GFR 34.35 (mL/min/1.73m2); Glucose 92 mg/dL (74-106); Potassium 4.5 mmol/L (3.5-5.1); Sodium 129 mmol/L (136-145); Total Protein 6.8 g/dL (6.4-8.2)
[2023-05-26 15:11] LABS: Creatine Kinase 94 U/L (39 - 308)
== END 2023-05-22 18:36 | disposition home or self-care (01) ==
LOC: LBO 18:41
PROVIDERS: PCP Family Medicine; Visit Provider Family Medicine
DX: I73.9 Peripheral vascular disease, unspecified
CPT/HCPCS: 36415; 80053; 85652; 82550; 82552

== ENCOUNTER 2023-06-02 20:59 | Outpatient (CLI) | payer MEDICARE, OTHER, SELFPAY ==
[2023-06-02 14:35] LABS: Anion Gap 6.3 mmol/L (3-11); BUN 16 mg/dL (7-18); CO2 24.7 mmol/L (21.0-32.0); CREATININE 1.6 mg/dL (0.70-1.30); Calcium 9.5 mg/dL (8.5-10.1); Chloride 98 mmol/L (98-107); Estimated GFR 42.22 (mL/min/1.73m2); Glucose 104 mg/dL (74-106); Potassium 4.7 mmol/L (3.5-5.1); Sodium 129 mmol/L (136-145)
[2023-06-02 22:09] LABS: Osmolality, Urine 228 mOsm/kg (150-1150)
== END 2023-06-02 21:00 | disposition home or self-care (01) ==
LOC: LBO 20:59
PROVIDERS: PCP Family Medicine; Visit Provider Family Medicine
DX: E87.1 Hypo-osmolality and hyponatremia (principal); N18.30 Chronic kidney disease, stage 3 unspecified; I10 Essential (primary) hypertension
CPT/HCPCS: 36415; 80048; 83935

== ENCOUNTER → 2023-06-08 14:14 | Outpatient (BNVA) | payer MEDICARE, OTHER, SELFPAY | PROVIDERS: PCP Family Medicine; Referring Provider Family Medicine; Visit Provider Student in an Organized Health Care Education/Training Program | DX: J98.09 Other diseases of bronchus, not elsewhere classified (principal); G47.33 Obstructive sleep apnea (adult) (pediatric); I12.9 Hypertensive chronic kidney disease with stage 1 through stage 4 chronic kidney disease, or unspecified chronic kidney disease; N18.30 Chronic kidney disease, stage 3 unspecified | CPT/HCPCS: 99214 ==

== ENCOUNTER 2023-06-08 16:19 | Outpatient (REF) | payer MEDICARE, OTHER, SELFPAY ==
[2023-06-08 19:34] LABS: Sodium, Urine 26 mmol/L
== END 2023-06-08 16:20 | disposition home or self-care (01) ==
LOC: LBN 16:19
PROVIDERS: PCP Family Medicine; Visit Provider Family Medicine
DX: I10 Essential (primary) hypertension; N18.30 Chronic kidney disease, stage 3 unspecified; E87.1 Hypo-osmolality and hyponatremia
CPT/HCPCS: 84300

== ENCOUNTER 2023-07-02 15:35 | Outpatient (CLI) | payer MEDICARE, OTHER, SELFPAY ==
[2023-07-02 14:47] LABS: Abs Immature Grans 0.05 10^3/uL (0.0-0.06); Absolute Basophil Count 0.06 10^3/uL (0.0-0.2); Absolute Eosinophil Count 0.85 10^3/uL (0.0-0.7); Absolute Lymphocyte Count 2.04 10^3/uL (1.2-3.4); Absolute Monocyte Count 0.71 10^3/uL (0.1-0.8); Absolute Neutrophil Count 5.53 10^3/uL (1.2-6.7); Basophils % 0.6; Eosinophils % 9.2; HCT 47.2 % (40.0-50.0); HGB 16.1 g/dL (13.5-17.5); Immature Grans % 0.5; Lymphocytes % 22.1; MCH 31.3 pg (27.0-33.0); MCHC 34.1 % (32.0-36.0); MCV 92 fL (80-95); MPV 9.6 fL (8.0-11.0); Monocytes % 7.7; Neutrophils % 59.9; Platelet Count 181 10^3/uL (130-400); RBC 5.14 10^6/uL (4.36-5.78); RDW 13.7 % (11.8-14.1); RDW-SD 46.7 fL; WBC 9.24 10^3/uL (4.4-10.8)
[2023-07-02 15:55] LABS: Anion Gap 5.7 mmol/L (3-11); BUN 16 mg/dL (7-18); CO2 25.3 mmol/L (21.0-32.0); CREATININE 1.6 mg/dL (0.70-1.30); Calcium 9.6 mg/dL (8.5-10.1); Chloride 96 mmol/L (98-107); Estimated GFR 41.96 (mL/min/1.73m2); Glucose 82 mg/dL (74-106); Potassium 4.7 mmol/L (3.5-5.1); Sodium 127 mmol/L (136-145)
== END 2023-07-02 15:36 | disposition home or self-care (01) ==
LOC: LBO 15:41
PROVIDERS: PCP Family Medicine; Visit Provider Orthopaedic Surgery Orthopaedic Surgery of the Spine
DX: M79.605 Pain in left leg (principal); M43.16 Spondylolisthesis, lumbar region; M48.062 Spinal stenosis, lumbar region with neurogenic claudication
CPT/HCPCS: 36415; 80048; 85025

== ENCOUNTER → 2023-07-14 15:03 | Outpatient (BNVA) | payer MEDICARE, OTHER, SELFPAY | PROVIDERS: PCP Family Medicine; Referring Provider Family Medicine; Visit Provider Podiatrist ==

== ENCOUNTER → 2023-10-05 13:20 | Outpatient (BNVA) | payer MEDICARE, OTHER, SELFPAY | PROVIDERS: PCP Family Medicine; Referring Provider Family Medicine; Visit Provider Podiatrist | DX: L84 Corns and callosities (principal); L60.3 Nail dystrophy; Z98.890 Other specified postprocedural states; L43.9 Lichen planus, unspecified; I73.9 Peripheral vascular disease, unspecified; R20.9 Unspecified disturbances of skin sensation; R09.89 Other specified symptoms and signs involving the circulatory and respiratory systems; L65.9 Nonscarring hair loss, unspecified; R23.4 Changes in skin texture; L60.8 Other nail disorders; M79.674 Pain in right toe(s); M79.675 Pain in left toe(s) | CPT/HCPCS: 11721 ==

== ENCOUNTER 2023-11-06 07:06 | Outpatient (CLI) | payer MEDICARE, OTHER, SELFPAY | END 2023-11-06 07:07 | disposition home or self-care (01) | LOC: PUVA 07:07 | PROVIDERS: PCP Family Medicine; Visit Provider Dermatology | DX: L30.8 Other specified dermatitis (principal) | CPT/HCPCS: 96900 ==

== ENCOUNTER 2023-11-10 07:10 | Outpatient (CLI) | payer MEDICARE, OTHER, SELFPAY | END 2023-11-10 07:11 | disposition home or self-care (01) | LOC: PUVA 07:10 | PROVIDERS: PCP Family Medicine; Visit Provider Dermatology | DX: L30.8 Other specified dermatitis (principal) | CPT/HCPCS: 96900 ==

== ENCOUNTER 2023-11-13 07:13 | Outpatient (CLI) | payer MEDICARE, OTHER, SELFPAY | END 2023-11-13 07:14 | disposition home or self-care (01) | LOC: PUVA 07:13 | PROVIDERS: PCP Family Medicine; Visit Provider Dermatology | DX: L30.8 Other specified dermatitis (principal) | CPT/HCPCS: 96900 ==

== ENCOUNTER 2023-11-20 07:13 | Outpatient (CLI) | payer MEDICARE, OTHER, SELFPAY | END 2023-11-20 07:14 | disposition home or self-care (01) | LOC: PUVA 07:13 | PROVIDERS: PCP Family Medicine; Visit Provider Dermatology | DX: L30.8 Other specified dermatitis (principal) | CPT/HCPCS: 36415; 83516; 96900; 84443 ==

== ENCOUNTER 2023-11-20 16:55 | Outpatient (CLI) | payer MEDICARE, OTHER, SELFPAY ==
[2023-11-20 17:12] LABS: TSH (W/Ref FT4) 0.85 uIU/mL (0.36-3.74)
[2023-12-09 07:11] LABS: Anti-Th/To Ab Negative (Negative)
== END 2023-11-20 16:56 | disposition home or self-care (01) ==
LOC: LBO 16:58
PROVIDERS: PCP Family Medicine; Visit Provider Family Medicine
DX: E06.9 Thyroiditis, unspecified (principal)
CPT/HCPCS: 36415; 83516; 84443

== ENCOUNTER 2023-11-24 07:07 | Outpatient (CLI) | payer MEDICARE, OTHER, SELFPAY | END 2023-11-24 07:08 | disposition home or self-care (01) | PROVIDERS: PCP Family Medicine; Visit Provider Dermatology | DX: L30.8 Other specified dermatitis (principal) | CPT/HCPCS: 96900 ==

== ENCOUNTER → 2023-11-25 04:15 | Outpatient (CLI) | payer MEDICARE, OTHER, SELFPAY ==
--- NOTE | 2023-11-25 07:30 | DI.US_ITS ---
Exam(s) US THYROID EXAM: US THYROID CLINICAL HISTORY: Check for nodules,THYROIDITIS,E06.9. TECHNIQUE: Ultrasound thyroid performed using standard protocol. COMPARISON: No exams were available for comparison FINDINGS: ISTHMUS: 2 mm RIGHT LOBE: Size: 5.5 x 2.0 x 1.8 cm Echogenicity: Normal. Vascularity: Normal. Nodules: 7 x 4 by 7 millimeter mixed cystic and solid lesion with macrocalcifications and smooth bord ers., TR 3. LEFT LOBE: Size: 4.6 x 2.0 x 1.2 cm Echogenicity: Normal. Vascularity: Normal. Nodules: 5 x 3 x 5 millimeter circumscribed hypoechoic mixed cystic and solid nodule, TR 2. [address] cyst lower pole. OTHER FINDINGS: None. IMPRESSION: Small bilateral thyroid nodules without suspicious appearance. No FNA recommended due to small size. DATA REPOSITORY:
== END ==
PROVIDERS: PCP Family Medicine; Visit Provider Family Medicine
DX: E04.2 Nontoxic multinodular goiter (principal); E06.9 Thyroiditis, unspecified
CPT/HCPCS: 76536

== ENCOUNTER 2023-11-27 07:13 | Outpatient (CLI) | payer MEDICARE, OTHER, SELFPAY | END 2023-11-27 07:14 | disposition home or self-care (01) | LOC: PUVA 07:13 | PROVIDERS: PCP Family Medicine; Visit Provider Dermatology | DX: L30.8 Other specified dermatitis (principal) | CPT/HCPCS: 96900 ==

== ENCOUNTER 2023-12-01 07:32 | Outpatient (CLI) | payer MEDICARE, OTHER, SELFPAY | END 2023-12-01 07:33 | disposition home or self-care (01) | LOC: PUVA 07:32 | PROVIDERS: PCP Family Medicine; Visit Provider Dermatology | DX: L40.8 Other psoriasis (principal) | CPT/HCPCS: 96900 ==

== ENCOUNTER 2023-12-04 07:15 | Outpatient (CLI) | payer MEDICARE, OTHER, SELFPAY | END 2023-12-04 07:16 | disposition home or self-care (01) | LOC: PUVA 07:16 | PROVIDERS: PCP Family Medicine; Visit Provider Dermatology | DX: L30.8 Other specified dermatitis (principal) | CPT/HCPCS: 96900 ==

== ENCOUNTER 2023-12-11 07:08 | Outpatient (CLI) | payer MEDICARE, OTHER, SELFPAY | END 2023-12-11 07:09 | disposition home or self-care (01) | LOC: PUVA 07:08 | PROVIDERS: PCP Family Medicine; Visit Provider Dermatology | DX: L30.8 Other specified dermatitis (principal) | CPT/HCPCS: 96900 ==

== ENCOUNTER 2023-12-15 07:16 | Outpatient (CLI) | payer MEDICARE, OTHER, SELFPAY | END 2023-12-15 07:17 | disposition home or self-care (01) | LOC: PUVA 07:17 | PROVIDERS: PCP Family Medicine; Visit Provider Dermatology | DX: L30.8 Other specified dermatitis (principal) | CPT/HCPCS: 96900 ==

== ENCOUNTER → 2023-12-17 14:09 | Outpatient (BNVA) | payer MEDICARE, OTHER, SELFPAY | PROVIDERS: PCP Family Medicine; Referring Provider Family Medicine; Visit Provider Physician Assistant Surgical | DX: J98.09 Other diseases of bronchus, not elsewhere classified (principal); R05.3 Chronic cough | CPT/HCPCS: 99214 ==

== ENCOUNTER 2023-12-21 15:39 | Emergency (ER) | payer MEDICARE, OTHER, SELFPAY ==
[2023-12-21 15:48] VITALS: BP 163/54; PULSE 76; RESP 16; TEMP 36.4; O2SAT 96
--- NOTE | 2023-12-21 17:30 | DI.CT_ITS ---
Exam(s) CT THORACIC SPINE WO CT CHEST WO EXAM: CT CHEST WO CLINICAL HISTORY: back pain, sob TECHNIQUE: Imaging Protocol: Axial computed tomography images with coronal and sagittal reformatted images were created and reviewed. Images of the thoracic spine were reconstructed from the chest CT in bone and soft tissue algorithm. CONTRAST MATERIAL: Noncontrast ml. COMPARISON: CT CT CHEST PE CTA from 12/11/[address] ABDOMEN PELVIS W from 12/13/[address] THORACIC SPINE WO from 12/21/2023 FINDINGS: Pulmonary parenchyma: No consolidation. No dominant measurable mass. Mild atelectasis/scarring. Tracheobronchial tree: No bronchiectasis or mucous plugging. Mediastinum and Rosa Elena: No dominant adenopathy or fluid collection. Tiny hiatal hernia. Pleura: No effusion. No pneumothorax. Heart: The heart is not dilated. Mild coronary artery calcifications are seen. Mitral annular calci fications Aorta: Aortic valve prosthesis. Thoracic aorta non-dilated. Mild atherosclerotic changes. Upper abdomen: No acute findings. Chronic bilateral mild perinephric stranding. diverticulosis not ed at the splenic flexure. Bones: No evidence of compression fracture, lytic or blastic lesion.Degenerative changes in the spi ne with prominent endplate osteophytes. Vacuum phenomenon at several levels. Mild scoliosis. Left shoulder prosthesis. Old right rib fractures. Soft tissues: Unremarkable. IMPRESSION: No acute abnormality in the chest or thoracic spine.. RADIATION DOSE DELIVERED: 955.31mGy.cm Total DLP DATA REPOSITORY: All CT scans at this facility are submitted to the National Radiology Data Registry (NRDR) Dose Index Registry (DIR) with the [employer] (ACR). RADIATION OPTIMIZATION: All CT scans at this facility use at least one of these dose optimization te chniques: automated exposure control; mA and/or kV adjustment per patient size (includes targeted exa ms where dose is matched to clinical indication); or iterative reconstruction.
--- NOTE | 2023-12-21 17:30 | RT.EKG_ITS ---
APPROVED REPORT Exam: Resting ECG Reason for Exam: back pain Patient Location: E HR:70 bpm ECG Measurements Heart Rate 70 AXIS [place] 201 P 71 QRSd 84 QRS 57 QT 381 T 63 QTc 411 Conclusion Sinus rhythm...normal P axis, V-rate 60- 99 Probable left atrial enlargement...P >50mS, <-0.10mV V1
[2023-12-21 17:56] LABS: Abs Immature Grans 0.05 10^3/uL (0.0-0.06); Absolute Basophil Count 0.07 10^3/uL (0.0-0.2); Absolute Eosinophil Count 1.05 10^3/uL (0.0-0.7); Absolute Lymphocyte Count 2.03 10^3/uL (1.2-3.4); Absolute Monocyte Count 0.75 10^3/uL (0.1-0.8); Absolute Neutrophil Count 6.61 10^3/uL (1.2-6.7); Basophils % 0.7; Eosinophils % 9.9; HCT 49.6 % (40.0-50.0); HGB 16.7 g/dL (13.5-17.5); Immature Grans % 0.5; Lymphocytes % 19.2; MCH 31.2 pg (27.0-33.0); MCHC 33.7 % (32.0-36.0); MCV 93 fL (80-95); MPV 9.8 fL (8.0-11.0); Monocytes % 7.1; Neutrophils % 62.6; Platelet Count 171 10^3/uL (130-400); RBC 5.36 10^6/uL (4.36-5.78); RDW-SD 47.7 fL; WBC 10.56 10^3/uL (4.4-10.8)
[2023-12-21 17:58] LABS: ESR 4 mm/hr (0-20)
[2023-12-21] MEDS: diazePAM 5 MG TAB PO ×2 (18:03→20:25)
[2023-12-21 18:16] LABS: ALT 25 U/L (16-63); AST 20 U/L (15-37); Albumin 3.7 g/dL (3.4-5.0); Alkaline Phosphatase 80 U/L (46-116); Anion Gap 7.7 mmol/L (3-11); BUN 26 mg/dL (7-18); Bilirubin, Total 0.4 mg/dL (0.2-1.0); C-Reactive Protein 0.53 mg/dL (<or=0.5); CO2 25.3 mmol/L (21.0-32.0); CREATININE 1.7 mg/dL (0.70-1.30); Calcium 8.9 mg/dL (8.5-10.1); Chloride 102 mmol/L (98-107); Estimated GFR 39.02 (mL/min/1.73m2); Glucose 104 mg/dL (74-106); Potassium 4.2 mmol/L (3.5-5.1); Sodium 135 mmol/L (136-145); Total Protein 6.7 g/dL (6.4-8.2); Troponin I < 50 ng/L (< or =60)
--- NOTE | 2023-12-21 19:38 | W.ED.GENAD ---
Discharge Plan Disposition Patient Disposition: Home Condition: Stable Discharge Details Clinical Impression: Back pain Primary Care Provider: Umesh Covarrubias ED Provider: Marley Conti Home Meds and New Rx's Prescriptions: New diazepam [Valium] 5 mg tablet 5 mg PO BID PRNQty: 7 0RF Continued lorazepam 1 mg tablet 1 mg PO QHS PRN (Reason: insomnia/back spasms) Qty: 30 2RF Hold Instructions: Changed by Provider rosuvastatin 20 mg tablet 20 mg PO DAILY aspirin 81 mg capsule 81 mg PO DAILY Hold Instructions: Home Medication placed on hold at Doctor's office pantoprazole 40 mg tablet,delayed release (DR/EC) 40 mg PO BID Qty: 180 3RF losartan 50 mg tablet 50 mg PO DAILY Qty: 90 3RF Rx Instructions: pt stopped and then restarted this me on his own 10/13/21 cc albuterol sulfate 2.5 mg /3 mL (0.083 %) solution for nebulization 2.5 mg inhalation Q4H Qty: 540 3RF [place] Saline 0.65 % aerosol,spray 1 spray intranasal Q2H PRN calcium carbonate 500 mg calcium (1,250 mg) tablet,chewable 1,000 mg PO .Every 4 hours PRN alfuzosin 10 mg tablet extended release 24 hr See Rx Instructions .ROUTE .COMPLEX Qty: 90 0RF Dose Instruction: TAKE ONE TABLET BY MOUTH ONCE DAILY. ADMINISTER AFTER THE SAME MEAL EACH DAY. Rx Instructions: TAKE ONE TABLET BY MOUTH ONCE DAILY. ADMINISTER AFTER THE SAME MEAL EACH DAY. polyethylene glycol 3350 [Miralax] 17 gram/dose powder 17 g PO DAILY PRN vitamin B complex Capsule 1 cap PO DAILY Patient Comments: PT not taking coenzyme Q10 [Co Q-10] 100 mg Capsule 300 mg PO DAILY Hold Instructions: Home Medication placed on hold at Doctor's office Probiotic 3 billion cell Capsule 3,000 mmu cells PO DAILY Discharge Instructions Instructions: Back Pain (ED) Additional Instructions: I suspect her symptoms are musculoskeletal, your CAT scans are within normal limits and your labs are reassuring You may take the Valium sparingly, do not take your Ativan within 10 hours of taking the Valium as there is similar medication, the Valium last longer Do not combine Valium with alcohol Please follow-up with your PCP for recheck in 1 to 2 days and return earlier should you have new or worsening complaints Referrals: Umesh Covarrubias DO [Primary Care Provider] - HPI General Date/Time Provider Initiated Documentation: 12/21/23 15:40. HPI Narrative: This 83-year-old male with history of chronic pain and recent laminectomy in July at [facility] presents with worsening back pain. Patient denies any fever or chills. Denies any significant shortness of breath or fever. Denies any calf pain or swelling. Has taken Tylenol without relief. Denies changes in bowel or bladder. Denies radiation of pain. Denies any anterior chest pain. Related Data Home Medications Medication Instructions Recorded Confirmed coenzyme Q10 100 mg capsule (Co 300 mg PO DAILY 09/03/19 12/21/23 Q-10) lactobacillus combination no.4 3 3,000 mmu cells PO DAILY 09/03/19 12/21/23 billion cell capsule (Probiotic) vitamin B complex 1 cap PO DAILY 09/03/19 12/21/23 aspirin 81 mg capsule 81 mg PO DAILY 12/05/21 12/21/23 pantoprazole 40 mg tablet,delayed 40 mg PO BID #180 tabs 01/02/23 12/21/23 release losartan 50 mg tablet 50 mg PO DAILY #90 tabs 02/20/23 12/21/23 albuterol sulfate 2.5 mg/3 mL 2.5 mg (3 mL) inhalation Q4H #540 04/07/23 12/21/23 (0.083 %) solution for nebulization mL calcium carbonate 1,000 mg PO .Every 4 hours PRN 08/07/23 12/21/23 sodium chloride 0.65 % nasal spray 1 spray intranasal Q2H PRN 08/07/23 12/21/23 aerosol ([place] Saline) rosuvastatin 20 mg tablet 20 mg PO DAILY 10/15/23 12/21/23 alfuzosin 10 mg tablet,extended See Rx Instructions .Route 11/30/23 12/21/23 release 24 hr .COMPLEX #90 tabs lorazepam 1 mg tablet 1 mg PO QHS PRN insomnia/back 11/30/23 12/21/23 spasms #30 tabs diazepam 5 mg tablet (Valium) 5 mg PO BID PRN #7 tabs 12/21/23 polyethylene glycol 3350 17 17 g PO DAILY PRN 12/21/23 12/21/23 gram/dose oral powder (Miralax) Previous Rx's Medication Instructions Recorded pantoprazole 40 mg tablet,delayed 40 mg PO BID #180 tabs 01/02/23 release losartan 50 mg tablet 50 mg PO DAILY #90 tabs 02/20/23 albuterol sulfate 2.5 mg/3 mL 2.5 mg (3 mL) inhalation Q4H #540 04/07/23 (0.083 %) solution for nebulization mL alfuzosin 10 mg tablet,extended See Rx Instructions .Route 11/30/23 release 24 hr .COMPLEX #90 tabs lorazepam 1 mg tablet 1 mg PO QHS PRN insomnia/back 11/30/23 spasms #30 tabs diazepam 5 mg tablet (Valium) 5 mg PO BID PRN #7 tabs 12/21/23 Allergies Allergy/AdvReac Type Severity Reaction Status Date / Time metronidazole Allergy Intermediate Skin Rash, Verified 12/21/23 15:46 swelling, itchy sulfamethoxazole Allergy turns red Verified 12/21/23 15:46 [From Bactrim] trimethoprim [From Bactrim] Allergy turns red Verified 12/21/23 15:46 ropinirole AdvReac Severe insomina, Verified 12/21/23 15:46 weakness, intense fatigue zolpidem [From Ambien] AdvReac sleep Verified 12/21/23 15:46 walk General Stated Complaint: Nk/Back Pain ANIBAL: 3 Course Vital Signs Vital signs: Vital Signs Temperature 36.4 C L 12/21/23 15:48 Pulse 76 12/21/23 15:48 Respiratory Rate 16 12/21/23 15:48 Blood Pressure 163/54 H 12/21/23 15:48 Pulse Oximetry 96 12/21/23 15:48 Temperature 36.4 C L 12/21/23 15:48 Temperature Source Temporal Artery Scan 12/21/23 15:48 Pulse 76 12/21/23 15:48 Respiratory Rate 16 12/21/23 15:48 Respiratory Effort Normal, Non-Labored 12/21/23 15:50 Blood Pressure 163/54 H 12/21/23 15:48 Blood Pressure Position Sitting 12/21/23 15:48 Pulse Oximetry 96 12/21/23 15:48 Oxygen Delivery Method Room Air 12/21/23 15:48 Oxygen Flow Rate 0 12/21/23 15:48 Pain Level 10 12/21/23 15:48 Lab/Test Results Lab/Test Results: Laboratory Tests Range/Units 12/21/23 17:50 WBC (4.4-10.8) 10^3/uL 10.56 RBC (4.36-5.78) 10^6/uL 5.36 Hgb (13.5-17.5) g/dL 16.7 Hct (40.0-50.0) % 49.6 MCV (80-95) fL 93 MCH (27.0-33.0) pg 31.2 MCHC (32.0-36.0) % 33.7 RDW (11.8-14.1) % 14.0 Plt Count (130-400) 10^3/uL 171 MPV (8.0-11.0) fL 9.8 Immature Gran % 0.5 Neutrophils % 62.6 Lymphocytes % 19.2 Monocytes % 7.1 Eosinophils % 9.9 Basophils % 0.7 Nucleated RBC % (0.0-0.3) % 0.0 Absolute Neutrophils (1.2-6.7) 10^3/uL 6.61 Absolute Lymphocytes (1.2-3.4) 10^3/uL 2.03 Absolute Monocytes (0.1-0.8) 10^3/uL 0.75 Absolute Eosinophils (0.0-0.7) 10^3/uL 1.05 H Absolute Basophils (0.0-0.2) 10^3/uL 0.07 ESR (0-20) mm/hr 4 Sodium (136-145) mmol/L 135 L Potassium (3.5-5.1) mmol/L 4.2 Chloride (98-107) mmol/L 102 Carbon Dioxide (21.0-32.0) mmol/L 25.3 Anion Gap (3-11) mmol/L 7.7 BUN (7-18) mg/dL 26 H Creatinine (0.70-1.30) mg/dL 1.7 H Est GFR (CKD-EPI 2020) (mL/min/1.73m2) 39.02 Glucose (74-106) mg/dL 104 Calcium (8.5-10.1) mg/dL 8.9 Total Bilirubin (0.2-1.0) mg/dL 0.4 AST (15-37) U/L 20 ALT (16-63) U/L 25 Alkaline Phosphatase (46-116) U/L 80 Troponin I (< or =60) ng/L < 50 C-Reactive Protein (<or=0.5) mg/dL 0.53 H Total Protein (6.4-8.2) g/dL 6.7 Albumin (3.4-5.0) g/dL 3.7 Medical Decision Making This 83-year-old male presents with report of upper back pain for the past month, worse in the past week, denies fever or chills, recent laminectomy at [facility] in July Denies strength or sensation changes, no clinical findings consistent with cauda equina syndrome Lungs clear to auscultation, cardiac rate rhythm regular, diagnostic labs do not show evidence of acute abnormality No respiratory distress EKG and troponin were ordered and did not show significant abnormality Inflammatory markers negative CT thoracic spine and chest were ordered for further evaluation per radiology interpretation my review there is no evidence of acute abnormality Patient is resting comfortably at time of reassessment Several tabs of Valium with risk of addiction reviewed, patient is also instructed not to take Ativan within 10 hours of taking the Valium Return precautions reviewed and patient expressed understanding Quality:SDOH Health Related Social Needs: No Data to Display PFSH All Active Problems (Updated 12/21/23 @ 20:06 by DAVID Barrios) Back pain (Acute) Nasal congestion (Acute) Pharyngitis (Acute) BPH w urinary obs/LUTS (Acute) Thyroiditis (Acute) Excessive cerumen in both ear canals (Acute) Chronic hyponatremia (Acute) Bronchomalacia (Acute) Stage III chronic kidney disease (Acute) Dx necessary for at-risk foot care with Podiatry Diverticulitis (Chronic) GERD (gastroesophageal reflux disease) (Chronic) HTN (hypertension) (Chronic) Hypercholesterolemia (Acute) Dizziness and giddiness (Acute) Malaise and fatigue (Acute) Cerebrovascular disease (Acute) Aortic valve disorder (Acute) Prostate cancer (Chronic) Diverticular disease of colon (Acute) Iron deficiency anemia (Acute) Depressive disorder (Acute) Headache (Acute) Chronic pansinusitis (Acute) Chronic cough (Acute) White coat syndrome with hypertension (Chronic) Tests in the 120s at home Cough (Acute) per Nikki 02/10/2020 started Breo inhaler 03/02/20 F/U with Dr Jordan, next ov 04/06/20 Hip osteoarthritis (Acute) Obstructive sleep apnea (Chronic ~2017) Moderate-PAP therapy H/O endoscopy (Chronic) 11/2020 Sinusitis, chronic 11/04/21 [place] low grade esophageal ulcer, 2 cm Hiatal Hernia Acute dyspnea (Acute) Insomnia (Chronic) Sleep Clinic. 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 History of vascular surgery (Chronic) Stenting of L internal carotid artery, 06/28, [facility] [place], started plavix Nail dystrophy (Acute) Corns and callosities (Acute) Left hip pain (Acute) Impacted cerumen, bilateral (Acute) Conductive hearing loss, external ear (Acute) Long-term current use of proton pump inhibitor therapy (Acute) Sacral back pain (Acute) referred to Spine Clinic per note 01/02/23 [facility] [place] Osteopenia (Acute) Syncope (Chronic) Syncope (Chronic) Spondylolisthesis at L4-L5 level (Acute) Medical History History of pyloric stenosis as a child Surgical History H/O lumbosacral spine surgery H/O laminectomy (07/17/23) [facility] Bilateral laminectomy, medial facetectomy, foraminotomy L4-5; Posterior instrumentation L4-5; Posterolateral arthrodesis L4-5; Application of local autograft; Application of allograft morselized History of carotid endarterectomy 2020 H/O colonoscopy (~11/04/21) 11/04/21 Dr Tyler History of colon resection H/O aortic valve replacement History of tonsillectomy H/O shoulder surgery H/O hemorrhoidectomy History of hernia repair Family History (Updated 11/06/23 @ 14:17 by Mainor Hoffman RN) Father Tuberculosis Mother Breast cancer Heart disease Sister Cancer Heart disease Hypertension Social History (Updated 11/06/23 @ 14:16 by Mainor Hoffman RN) Smoking/Tobacco Use Status: Former Tobacco Use Quit Date: 09/07/1964 Pack-years: 42 Tobacco: How many years used: 14 Smoking risk assessment performed?: Yes Alcohol Intake: current Alcohol Intake frequency: holidays/special occasions only Alcohol type: wine and hard liquor Drug use: Never Substance use type: does not use Adopted: No Caregiver/Support person: No Foster care: No Household members: spouse Housing: house Number of Children: 1 Education Level: college Do you need help understanding health information?: Never 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 Pets and animals: No Sexually active: Yes Do you think of yourself as: straight/heterosexual Current gender identity: male What is your relationship status?: How often do you talk on the phone with friends or family?: three or more times per week How often do you get together with friends or relatives?: never How often do you attend mosque or quaker services?: decline to answer Do you belong to any clubs or organized social groups?: no Panel score (0-1 are the most socially isolated patients): 2 What type of physical activity do you participate in: other Details: 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
--- NOTE | 2023-12-21 19:58 | DI.VRAD_ITS ---
PROCEDURE INFORMATION: Exam: CT Chest Without Contrast; Diagnostic Exam date and time: 12/21/2023 6:21 PM Age: 83 years old Clinical indication: Shortness of breath; Patient HX: Back pain, SOB TECHNIQUE: Imaging protocol: Diagnostic computed tomography of the chest without contrast. 3D rendering (Not supervised by radiologist): MIP and/or 3D reconstructed images were created by the technologist. Radiation optimization: All CT scans at this facility use at least one of these dose optimization techniques: automated exposure control; mA and/or kV adjustment per patient size (includes targeted exams where dose is matched to clinical indication); or iterative reconstruction. COMPARISON: CT CHEST PE CTA 12/11/2020 4:10 PM FINDINGS: Lungs: Minimal bibasilar atelectasis or scarring. Pleural spaces: Mild biapical pleural-parenchymal scarring. Heart: Changes of prior sternotomy and aortic valve repair. Calcification of the mitral valve annulus. Coronary arteries: No visible coronary artery atherosclerotic calcification. Lymph nodes: Several small lymph nodes within the mediastinum, likely reactive, but nonspecific. Vasculature: Atherosclerotic disease of the thoracic aorta, without aneurysm. Diaphragm: Small-sized hiatal hernia. Kidneys and ureters: Bilateral perinephric fat stranding, likely chronic. Stomach and bowel: Colonic diverticulosis. Bones/joints: Partially visualized left glenohumeral arthroplasty. Multilevel thoracic spine degenerative disc space narrowing and osteophyte formation. Multiple old, healed right posterior rib fractures. Soft tissues: Normal. IMPRESSION: No acute thoracic abnormality. Dictated and Authenticated by: Zfeerino Lu MD. Ordering:BERNADINE Roach MD
--- NOTE | 2023-12-21 20:05 | DI.VRAD_ITS ---
PROCEDURE INFORMATION: Exam: CT Thoracic Spine Without Contrast Exam date and time: 12/21/2023 6:21 PM Age: 83 years old Clinical indication: Pain in thoracic spine; Without myelpathy or radiculopathy; Patient HX: Back pain TECHNIQUE: Imaging protocol: Computed tomography of the thoracic spine without contrast. Radiation optimization: All CT scans at this facility use at least one of these dose optimization techniques: automated exposure control; mA and/or kV adjustment per patient size (includes targeted exams where dose is matched to clinical indication); or iterative reconstruction. COMPARISON: CT CHEST WO 12/21/2023 6:21 PM FINDINGS: Bones/joints: Multilevel thoracic spine degenerative disc space narrowing, endplate sclerosis/irregularity, vacuum disc phenomenon, and osteophyte formation. Mild dextroscoliosis of the thoracic spine. No acute thoracic spine abnormality. Soft tissues: Unremarkable. IMPRESSION: 1. No acute thoracic spine abnormality. 2. Please refer to CT chest from same day for information regarding the other thoracic findings. Dictated and Authenticated by: Zeferino Lu MD. Ordering:BERNADINE Roach MD
== END 2023-12-21 20:28 | disposition home or self-care (01) ==
PROVIDERS: Emergency Provider Physician Assistant; PCP Family Medicine
DX: M54.6 Pain in thoracic spine (principal); G89.29 Other chronic pain; I10 Essential (primary) hypertension; E78.5 Hyperlipidemia, unspecified; Z96.612 Presence of left artificial shoulder joint; Z95.2 Presence of prosthetic heart valve; Z79.82 Long term (current) use of aspirin; Z87.891 Personal history of nicotine dependence; R94.31 Abnormal electrocardiogram [ECG] [EKG]
CPT/HCPCS: 71250; 80053; 85652; 93005; 99285; 72128; 84484; 85025; 86140; 93010; 99284

== ENCOUNTER 2023-12-22 07:18 | Outpatient (CLI) | payer MEDICARE, OTHER, SELFPAY | END 2023-12-22 07:19 | disposition home or self-care (01) | LOC: PUVA 07:18 | PROVIDERS: PCP Family Medicine; Visit Provider Dermatology | DX: L40.0 Psoriasis vulgaris (principal) | CPT/HCPCS: 96900 ==

== ENCOUNTER → 2024-01-04 04:44 | Outpatient (CLI) | payer MEDICARE, OTHER, SELFPAY ==
--- NOTE | 2024-01-04 14:41 | DI.RAD_ITS ---
Exam(s) XR FOOT LT COMPLETE EXAM: XR FOOT LT COMPLETE CLINICAL HISTORY: Left foot/toe pain,M79.675. TECHNIQUE: 2D digital imaging was performed. COMPARISON: CR XR FOOT RT COMPLETE from 01/04/2024 FINDINGS: 3 views No evidence of fracture or diastasis of the Lisfranc joint. There are moderate degenerative changes in the great toe metatarsophalangeal joint including medial joint space narrowing and a degenerative subarticular cyst in the distal medial aspect of the great toe metatarsal head. The metatarsophalangeal joint of the 5th toe appears unremarkable without similar findings to the opp osite side. Some vascular calcifications noted in the dorsalis pedis artery both feet. IMPRESSION: Findings as above but with no impressive findings at the metatarsophalangeal joint of the 5th toe, as is evident in the opposite-right foot. DATA REPOSITORY: RADIATION DOSE DELIVERED:
--- NOTE | 2024-01-04 14:41 | DI.RAD_ITS ---
Exam(s) XR FOOT RT COMPLETE EXAM: XR FOOT RT COMPLETE CLINICAL HISTORY: Right foot/toe pain,M79.671. TECHNIQUE: 2D digital imaging was performed. COMPARISON: No exams were available for comparison FINDINGS: 3 views No evidence of acute fracture or diastasis of the Lisfranc joint. There are moderate degenerative ch anges evident in the great toe metatarsophalangeal joint, more so medially than laterally. There is advanced degenerative change in the 5th metacarpophalangeal joint. This may not be pure ost eoarthritic change as there appears to be an erosion on the lateral aspect of the 5th metatarsal head . IMPRESSION: Findings as described above at the metatarsophalangeal joint of the 5th toe. Requires follow-up. DATA REPOSITORY: RADIATION DOSE DELIVERED:
== END ==
PROVIDERS: PCP Family Medicine; Visit Provider Podiatrist
DX: M79.671 Pain in right foot (principal); M79.672 Pain in left foot
CPT/HCPCS: 11719; 73630

== ENCOUNTER 2024-01-12 07:08 | Outpatient (CLI) | payer MEDICARE, OTHER, SELFPAY | END 2024-01-12 07:09 | disposition home or self-care (01) | LOC: PUVA 07:08 | PROVIDERS: PCP Family Medicine; Visit Provider Dermatology | DX: L40.9 Psoriasis, unspecified (principal) | CPT/HCPCS: 96900 ==

== ENCOUNTER 2024-01-15 07:24 | Outpatient (CLI) | payer MEDICARE, OTHER, SELFPAY | END 2024-01-15 07:25 | disposition home or self-care (01) | LOC: PUVA 07:24 | PROVIDERS: PCP Family Medicine; Visit Provider Dermatology | DX: L40.9 Psoriasis, unspecified (principal) | CPT/HCPCS: 96900 ==

== ENCOUNTER 2024-01-19 07:32 | Outpatient (CLI) | payer MEDICARE, OTHER, SELFPAY | END 2024-01-19 07:33 | disposition home or self-care (01) | LOC: PUVA 07:32 | PROVIDERS: PCP Family Medicine; Visit Provider Dermatology | DX: L30.8 Other specified dermatitis (principal) | CPT/HCPCS: 96900; 71046 ==

== ENCOUNTER 2024-01-19 13:33 | Outpatient (CLI) | payer MEDICARE, OTHER, SELFPAY ==
--- NOTE | 2024-01-19 13:30 | RT.EKG_ITS ---
APPROVED REPORT Exam: Resting ECG Reason for Exam: BLANCO Patient Location: O HR:76 bpm ECG Measurements Heart Rate 76 AXIS [place] 188 P 79 QRSd 77 QRS 57 QT 351 T 63 QTc 395 Conclusion Sinus rhythm...normal P axis, V-rate 50- 99 Poor R wave progression
== END 2024-01-19 13:34 | disposition home or self-care (01) ==
LOC: DI.KIM 13:34
PROVIDERS: PCP Family Medicine; Visit Provider Family Medicine
DX: R06.09 Other forms of dyspnea (principal)
CPT/HCPCS: 93010

== ENCOUNTER → 2024-01-19 15:42 | Outpatient (CLI) | payer MEDICARE, OTHER, SELFPAY ==
--- NOTE | 2024-01-19 14:30 | DI.RAD_ITS ---
Exam(s) XR CHEST 2V PA LATERAL EXAM: XR CHEST 2V PA LATERAL CLINICAL HISTORY: R06.09 BLANCO. TECHNIQUE: 2D digital imaging was performed. COMPARISON: CR XR CHEST 1V IN DI DEPT from 03/30/2023 FINDINGS: 2 views: Heart size is normal. The mediastinum is not widened. Lungs are clear. No infiltrates nor pleural effusions. Left shoulder reverse prosthesis again noted as well as evidence of previous surgery in the opposite- right shoulder. Also evident is a healed fracture of the right 6 rib, as was also previously present . No acute fractures identified IMPRESSION: No acute pulmonary findings. DATA REPOSITORY: RADIATION DOSE DELIVERED:
== END ==
PROVIDERS: PCP Family Medicine; Visit Provider Family Medicine
DX: R06.09 Other forms of dyspnea (principal)
CPT/HCPCS: 71046

== ENCOUNTER 2024-01-22 07:23 | Outpatient (CLI) | payer MEDICARE, OTHER, SELFPAY | END 2024-01-22 07:24 | disposition home or self-care (01) | LOC: PUVA 07:23 | PROVIDERS: PCP Family Medicine; Visit Provider Dermatology | DX: L40.9 Psoriasis, unspecified (principal) | CPT/HCPCS: 96900 ==

== ENCOUNTER 2024-01-26 12:35 | Outpatient (CLI) | payer MEDICARE, OTHER, SELFPAY | END 2024-01-26 12:36 | disposition home or self-care (01) | LOC: PUVA 13:09 | PROVIDERS: PCP Family Medicine; Visit Provider Dermatology | DX: L40.9 Psoriasis, unspecified (principal) | CPT/HCPCS: 96900 ==

== ENCOUNTER 2024-01-29 13:46 | Outpatient (CLI) | payer MEDICARE, OTHER, SELFPAY | END 2024-01-29 13:47 | disposition home or self-care (01) | LOC: PUVA 13:59 | PROVIDERS: PCP Family Medicine; Visit Provider Dermatology | DX: L40.9 Psoriasis, unspecified (principal) | CPT/HCPCS: 96900 ==

== ENCOUNTER 2024-02-09 13:14 | Outpatient (CLI) | payer MEDICARE, OTHER, SELFPAY | END 2024-02-09 13:15 | disposition home or self-care (01) | LOC: PUVA 13:50 | PROVIDERS: PCP Family Medicine; Visit Provider Dermatology | DX: L40.9 Psoriasis, unspecified (principal) | CPT/HCPCS: 96900 ==

== ENCOUNTER → 2024-02-11 01:47 | Outpatient (CLI) | payer MEDICARE, OTHER, SELFPAY ==
--- NOTE | 2024-02-11 07:15 | ETT_ITS ---
APPROVED REPORT Exam: Exercise Treadmill Patient Location: Out-Patient Room/Bed: Stress Nurse: Kassie Angeles RN and Andrés Montemayor RN Ordering Provider:LUCIUS MCBRIDE, Contact Number: [phone] BMI: 24.29 Baseline Rhythm: Sinus Rhythm Comment: Sinus Rhythm with Occasional PAC's. Indications: History of CAD that presented as dyspnea; Dyspnea on exertion. Medical History Medical History: Dyspnea on exertion; Back pain; Thyroiditis; GERD; Hypertension; Hypercholesterolemi a; Dizziness; Cerebrovascular Disease; Aortic Valve Disorder; Iron Deficiency Anemia; Depressive Diso rder; Obstructive Sleep Apnea; Carotid Artery Stenosis; Left Carotid Artery Arteriosclerosis. Cardiac Medications: Aspirin; Pantoprazole; Losartan; Albuterol Sulfate; Rosuvastatin; Lorazepam; Carmen zepam; Prednisone. Allergies: Metronidazole; Bactrim; Ropinirole; Ambien. Cardiac Risk Factors: Family History; Hypertension; Hyperlipidemia; CVD; Former Smoker. Previous Cardiac Procedures: Left Carotid Artery Stenting; Aortic Valve Replacement; Carotid Endarter ectomy. Pretest Chest Pain Characteristics: None. Exercise History: Physically active. Physical Disabilities: None. Lung Sounds: Clear bilaterally throughout, anterior and posterior. Heart Sounds: S1/S2. Stress Test Details Test: Exercise stress testing was performed using a Keyshawn protocol. Rest Stress HR Resting HR Supine: 82 bpm Max Heart Rate (APMHR): 135 bpm Resting HR Standin bpm Target HR (85% APMHR): 115 bpm Max HR Achieved: 117 bpm % of APMHR: 87 Recovery HR: 83 bpm HR response to stress: Accelerated HR response to stress BP Resting BP Supine: 140/70 mmHg Resting BP Standin/60 mmHg Max BP: 160/58 mmHg Recovery BP: 130/50 mmHg BP response to stress: Normal blood pressure response to stress. ECG Resting ECG: Sinus Rhythm Ectopy: Occasional PAC's. Stress ECG: Sinus Tachycardia ST Change: No significant ST segment changes noted Arrhythmia: Occasional PAC's; Trigeminy; Couplet; Rare PVC's. Recovery ECG: Sinus Rhythm Recovery ST Change: No significant ST segment changes noted Recovery Arrhythmia: Occasional PAC's; Occasional Multifocal PVC's. Clinical Reason for Termination: Target HR Achieved Stress Symptoms: General Fatigue; Moderate SOB. Exercise duration: 2 min47 sec Highest Stage Reached: Stage 1: 1.7 mph at 10% grade. Exercise capacity: 4.46 METs Angina Score: None Rate Pressure Product: 11009 Stress ECG Conclusion 1. Resting electrocardiogram showed poor wave progression 2. Patient exercised on the Keyshawn protocol and completed a workload of 4.46 METS. This would be an a verage exercise capacity for age 3. There was no electrocardiographic evidence of myocardial ischemia. The patient achieved 87% of pr edicted heart rate for age 2. There were occasional atrial and ventricular ectopic beats Stress Test Summary STAGE Time (mins) Speed (mph) Grade (%) HR BP SpO2 SYMPTOMS METS Supine 82 140/70 Standing 81 100/60 1 3 1.7 10 115 Generalized Fatigue; Moderate SOB. 4.5 1 min recovery 107 138/80 Pt. states that all symptoms are resolving. 3 min recovery 91 160/58 6 min recovery 83 130/50 96 Pt. states that all symptoms have resolved. Exercise treamill tolerance test stopped by staff upon pt. achieving his THR due to history of back p ain, dizziness, and a balance disorder.
== END ==
PROVIDERS: PCP Family Medicine; Visit Provider Family Medicine
DX: R06.09 Other forms of dyspnea (principal)
CPT/HCPCS: 93016; 93018; 93017

== ENCOUNTER 2024-02-12 13:31 | Outpatient (CLI) | payer MEDICARE, OTHER, SELFPAY | END 2024-02-12 13:32 | disposition home or self-care (01) | LOC: PUVA 13:54 | PROVIDERS: PCP Family Medicine; Visit Provider Dermatology | DX: L40.9 Psoriasis, unspecified (principal) | CPT/HCPCS: 96900 ==

== ENCOUNTER 2024-02-12 14:27 | Emergency (ER) | payer MEDICARE, OTHER, SELFPAY ==
--- NOTE | 2024-02-12 14:15 | RT.EKG_ITS ---
APPROVED REPORT Exam: Resting ECG Reason for Exam: Dizziness Patient Location: E HR:70 bpm ECG Measurements Heart Rate [address] 188 P 54 QRSd 81 QRS 55 QT 368 T 69 QTc 398 Conclusion Sinus rhythm...normal P axis, V-rate 60- 99 Ventricular premature complex...V complex w/ short R-R interval Left atrial enlargement...P, P'>60mS, <-0.15mV V1
[2024-02-12 14:31] VITALS: BP 137/62; PULSE 73; RESP 16; TEMP 36.6; O2SAT 98
--- NOTE | 2024-02-12 14:49 | ED.GENADUL_ITS ---
Discharge Plan Disposition Patient Disposition: Home Condition: Stable Discharge Details Clinical Impression: Fatigue, Fullness in head Primary Care Provider: Umesh Covarrubias ED Provider: Felipe Head Home Meds and New Rx's Prescriptions: Continued lorazepam 1 mg tablet 1 mg PO QHS PRN (Reason: insomnia/back spasms) Qty: 30 2RF Hold Instructions: Changed by Provider rosuvastatin 20 mg tablet 20 mg PO DAILY aspirin 81 mg capsule 81 mg PO DAILY Hold Instructions: Home Medication placed on hold at Doctor's office losartan 50 mg tablet 50 mg PO DAILY Qty: 90 3RF Rx Instructions: pt stopped and then restarted this me on his own 10/13/21 cc albuterol sulfate 2.5 mg /3 mL (0.083 %) solution for nebulization 2.5 mg inhalation Q4H Qty: 540 3RF [place] Saline 0.65 % aerosol,spray 1 spray intranasal Q2H PRN calcium carbonate 500 mg calcium (1,250 mg) tablet,chewable 1,000 mg PO .Every 4 hours PRN polyethylene glycol 3350 [Miralax] 17 gram/dose powder 17 g PO DAILY PRN pantoprazole 40 mg tablet,delayed release (DR/EC) 40 mg PO BID Qty: 180 3RF vitamin B complex Capsule 1 cap PO DAILY Patient Comments: PT not taking coenzyme Q10 [Co Q-10] 100 mg Capsule 300 mg PO DAILY Hold Instructions: Home Medication placed on hold at Doctor's office Probiotic 3 billion cell Capsule 3,000 mmu cells PO DAILY diazepam [Valium] 5 mg tablet 5 mg PO BID PRNQty: 7 0RF Discharge Instructions Additional Instructions: Your labs and imaging did not show any concerning findings at this time Follow-up with your specialists as scheduled along with your primary care provider If you feel more ill or have new symptoms such as high fevers or persistent vomiting return to the emergency department for reevaluation HPI General Date/Time Provider Initiated Documentation: 02/12/24 14:27 . Limitations to Documentation: no limitations . Information obtained by: patient . History of Present Illness 83 year old M presents to the emergency department with the chief complaint of head pressure and dizziness, described as moderate, Patient started experiencing this year(s) (5) and it has been intermittent. No relieving factors improve symptom(s), No exacerbating factors reported . Patient notes denies chest pain, fever/chills, shortness of breath and syncope. Patient did receive the following treatments prior to arrival, none Related Data Home Medications Medication Instructions Recorded Confirmed coenzyme Q10 100 mg capsule (Co 300 mg PO DAILY 09/03/19 02/12/24 Q-10) lactobacillus combination no.4 3 3,000 mmu cells PO DAILY 09/03/19 02/12/24 billion cell capsule (Probiotic) vitamin B complex 1 cap PO DAILY 09/03/19 02/12/24 aspirin 81 mg capsule 81 mg PO DAILY 12/05/21 02/12/24 losartan 50 mg tablet 50 mg PO DAILY #90 tabs 02/20/23 02/12/24 albuterol sulfate 2.5 mg/3 mL 2.5 mg (3 mL) inhalation Q4H #540 04/07/23 02/12/24 (0.083 %) solution for nebulization mL calcium carbonate 1,000 mg PO .Every 4 hours PRN 08/07/23 01/26/24 sodium chloride 0.65 % nasal spray 1 spray intranasal Q2H PRN 08/07/23 02/12/24 aerosol ([place] Saline) rosuvastatin 20 mg tablet 20 mg PO DAILY 10/15/23 02/12/24 lorazepam 1 mg tablet 1 mg PO QHS PRN insomnia/back 11/30/23 02/12/24 spasms #30 tabs diazepam 5 mg tablet (Valium) 5 mg PO BID PRN #7 tabs 12/21/23 02/12/24 polyethylene glycol 3350 17 17 g PO DAILY PRN 12/21/23 02/12/24 gram/dose oral powder (Miralax) pantoprazole 40 mg tablet,delayed 40 mg PO BID #180 tabs 02/08/24 02/12/24 release Previous Rx's Medication Instructions Recorded losartan 50 mg tablet 50 mg PO DAILY #90 tabs 02/20/23 albuterol sulfate 2.5 mg/3 mL 2.5 mg (3 mL) inhalation Q4H #540 04/07/23 (0.083 %) solution for nebulization mL lorazepam 1 mg tablet 1 mg PO QHS PRN insomnia/back 11/30/23 spasms #30 tabs diazepam 5 mg tablet (Valium) 5 mg PO BID PRN #7 tabs 12/21/23 pantoprazole 40 mg tablet,delayed 40 mg PO BID #180 tabs 02/08/24 release Allergies Allergy/AdvReac Type Severity Reaction Status Date / Time metronidazole Allergy Intermediate Skin Rash, Verified 01/26/24 11:30 swelling, itchy sulfamethoxazole Allergy turns red Verified 01/26/24 11:30 [From Bactrim] trimethoprim [From Bactrim] Allergy turns red Verified 01/26/24 11:30 ropinirole AdvReac Severe insomina, Verified 01/26/24 11:30 weakness, intense fatigue zolpidem [From Ambien] AdvReac sleep Verified 01/26/24 11:30 walk General Stated Complaint: Dizzy/Sync ANIBAL: 3 Review of Systems All systems reviewed & are unremarkable except as noted in HPI and below Constitutional Constitutional: Denies chills, Denies fever(s) and Denies weakness Eyes Eyes: Denies loss of vision Cardiovascular Cardiovascular: Denies chest pain and Denies dyspnea Respiratory Respiratory: Denies cough and Denies dyspnea Gastrointestinal Gastrointestinal: Denies abdominal pain, Denies nausea and Denies vomiting Musculoskeletal Musculoskeletal: Denies joint swelling Neurologic Neurologic: Denies loss of vision and Denies weakness Exam Const General: no acute distress Orientation: alert HENAZ Head: normal to inspection Ears: external ears normal General nose exam: external nose normal Mouth: moist mucous membranes Eyes General: appearance normal, both eyes and all related structures Neck Neck: normal visual inspection Resp Effort & Inspection: normal respiratory effort and able to speak in complete sentences Auscultation: clear to auscultation bilaterally Cardio Jugular venous pressure: no JVD Rate: regular rate GI Palpation: soft and nontender Skin General skin exam: no rashes or lesions noted Neuro General: patient alert and patient oriented x3 Extrem General: normal to inspection Psych Mental Status: mental status grossly normal Course Vital Signs Vital signs: Vital Signs Temperature 36.6 C 02/12/24 14:31 Pulse 73 02/12/24 14:31 Respiratory Rate 16 02/12/24 14:31 Blood Pressure 137/62 02/12/24 14:31 Pulse Oximetry 98 02/12/24 14:31 Temperature 36.6 C 02/12/24 14:31 Temperature Source Tympanic 02/12/24 14:31 Pulse 73 02/12/24 14:31 Respiratory Rate 16 02/12/24 14:31 Blood Pressure 137/62 02/12/24 14:31 Blood Pressure Position Sitting 02/12/24 14:31 Pulse Oximetry 98 02/12/24 14:31 Oxygen Delivery Method Room Air 02/12/24 14:31 Oxygen Flow Rate 0 02/12/24 14:31 Pain Level 7 02/12/24 14:31 Medical Decision Making 83-year-old male with a history of chronic kidney disease, hypertension, GERD who comes in with complaints of chronic sensation of intermittent dizziness and head pressure. He had multiple studies evaluating for this including MRIs which have not shown any clear cause for his symptoms. He came in today for continued anterior head and sinus pressure along with feeling fatigued. He denies any unilateral weakness, changes in vision or speech, abdominal pain, chest pain or difficulty breathing. He is alert and speaking clearly on arrival in no distress. He is oriented x 4, cranial nerves II through XII are intact. He has no focal motor or sensation deficits. Unclear etiology for his chronic symptoms, given his age will obtain a CT head and sinuses to evaluate for sinus disease and less likely hemorrhage. The pain is not the worst of his life and is not thunderclap in etiology so doubt subarachnoid hemorrhage. He has no fevers or neck stiffness so doubt [employer] infection. Given his fatigue we will also check a CBC to evaluate for anemia and also CMP to evaluate for electrolyte abnormalities. He has no temporal artery tenderness but will send a sed rate given his age. Patient stable, still reassuring exam and CT and labs show no significant acute findings. He is stable, discussed results with him. He says he has follow-up with ENT and sees neurologist in [place]. Return precautions given Differential Diagnosis Differential Diagnosis: Sinus disease, vertigo, anemia Medical Records Medical records reviewed: Yes I reviewed the patient's medical records. Imaging Data Radiologic Study: Attestation: I personally reviewed and interpreted this imaging study as follows: Imaging: CT Scan Radiologist's impression: No acute findings Lab Data Lab results reviewed: Yes I reviewed the patient's lab results. ECG Data Attestation: I personally reviewed and interpreted this ECG (s) as follows: Prior ECG tracings: available for review Interpretation: Sinus rhythm, rate of 70, NC 188, no STEMI Quality:SDOH Health Related Social Needs: No Data to Display PFSH All Active Problems (Updated 02/12/24 @ 16:24 by Felipe Head MD) Fullness in head (Acute) Fatigue (Acute) BLANCO (dyspnea on exertion) (Acute) Other idiopathic scoliosis, thoracolumbar region (Acute) Acquired hammertoes of both feet (Acute) Nasal congestion (Acute) Pharyngitis (Acute) BPH w urinary obs/LUTS (Acute) Thyroiditis (Acute) Excessive cerumen in both ear canals (Acute) Chronic hyponatremia (Acute) Bronchomalacia (Acute) Stage III chronic kidney disease (Acute) Dx necessary for at-risk foot care with Podiatry Diverticulitis (Chronic) GERD (gastroesophageal reflux disease) (Chronic) HTN (hypertension) (Chronic) Hypercholesterolemia (Acute) Dizziness and giddiness (Acute) Malaise and fatigue (Acute) Cerebrovascular disease (Acute) Aortic valve disorder (Acute) Prostate cancer (Chronic) Diverticular disease of colon (Acute) Iron deficiency anemia (Acute) Depressive disorder (Acute) Headache (Acute) Chronic pansinusitis (Acute) Chronic cough (Acute) White coat syndrome with hypertension (Chronic) Tests in the 120s at home Cough (Acute) per Nikki 02/10/2020 started Breo inhaler 03/02/20 F/U with Dr Jordan, next ov 04/06/20 Hip osteoarthritis (Acute) Obstructive sleep apnea (Chronic ~2017) Moderate-PAP therapy H/O endoscopy (Chronic) 11/2020 Sinusitis, chronic 11/04/21 [place] low grade esophageal ulcer, 2 cm Hiatal Hernia Acute dyspnea (Acute) Insomnia (Chronic) Sleep Clinic. 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) Onychomycosis (Acute 04/23/22) History of hemoptysis (Acute) Stenosis of carotid artery (Acute) 05/22/22 [facility] Vascular Arteriosclerosis of left carotid artery (Acute) 05/22/22 Vascular Eczema (Acute) start narrow band UVB bid at [facility] History of vascular surgery (Chronic) Stenting of L internal carotid artery, 06/28, [facility], started plavix Nail dystrophy (Acute) Corns and callosities (Acute) Left hip pain (Acute) Impacted cerumen, bilateral (Acute) Conductive hearing loss, external ear (Acute) Long-term current use of proton pump inhibitor therapy (Acute) Sacral back pain (Acute) referred to Spine Clinic per note 01/02/23 [facility] Osteopenia (Acute) Syncope (Chronic) Syncope (Chronic) Spondylolisthesis at L4-L5 level (Acute) Medical History History of pyloric stenosis as a child Surgical History H/O lumbosacral spine surgery H/O laminectomy (07/17/23) [facility] Bilateral laminectomy, medial facetectomy, foraminotomy L4-5; Posterior instrumentation L4-5; Posterolateral arthrodesis L4-5; Application of local autograft; Application of allograft morselized History of carotid endarterectomy 2020 H/O colonoscopy (~11/04/21) 11/04/21 Dr Tyler History of colon resection H/O aortic valve replacement History of tonsillectomy H/O shoulder surgery H/O hemorrhoidectomy History of hernia repair Family History Father Tuberculosis Mother Breast cancer Heart disease Sister Cancer Heart disease Hypertension Social History Smoking/Tobacco Use Status: Former Tobacco Use Quit Date: 09/07/1964 Pack- years: 42 Tobacco: How many years used: 14 Smoking risk assessment performed?: Yes Alcohol Intake: current Alcohol Intake frequency: holidays/special occasions only Alcohol type: wine and hard liquor Drug use: Never Substance use type: does not use Adopted: No Caregiver/Support person: No Foster care: No Household members: spouse Housing: house Number of Children: 1 Education Level: college Do you need help understanding health information?: Never 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 Pets and animals: No Sexually active: Yes Do you think of yourself as: straight/heterosexual Current gender identity: male What is your relationship status?: How often do you talk on the phone with friends or family?: three or more times per week How often do you get together with friends or relatives?: never How often do you attend mosque or church services?: decline to answer Do you belong to any clubs or organized social groups?: no Panel score (0-1 are the most socially isolated patients): 2 What type of physical activity do you participate in: other Details: 2nd Degree Shalini Rodarte Duration: 60-90 minutes/day Frequency: 1-2 times per week Seatbelt use: always Drive intox or ride w/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
[2024-02-12 15:02] LABS: Abs Immature Grans 0.06 10^3/uL (0.0-0.06); Absolute Basophil Count 0.06 10^3/uL (0.0-0.2); Absolute Eosinophil Count 0.67 10^3/uL (0.0-0.7); Absolute Lymphocyte Count 1.61 10^3/uL (1.2-3.4); Absolute Monocyte Count 0.64 10^3/uL (0.1-0.8); Absolute Neutrophil Count 6.31 10^3/uL (1.2-6.7); Basophils % 0.6 %; Eosinophils % 7.2 %; HCT 47.6 % (40.0-50.0); Immature Grans % 0.6 %; Lymphocytes % 17.2 %; MCH 31.1 pg (27.0-33.0); MCHC 33.6 % (32.0-36.0); MCV 93 fL (80-95); MPV 9.5 fL (8.0-11.0); Monocytes % 6.8 %; Neutrophils % 67.6 %; Platelet Count 166 10^3/uL (130-400); RBC 5.14 10^6/uL (4.36-5.78); RDW 13.7 % (11.8-14.1); WBC 9.35 10^3/uL (4.4-10.8)
[2024-02-12 15:05] LABS: ESR 6 mm/hr (0-20)
[2024-02-12 15:17] LABS: PTT Activated 28.8 sec (23.6-32.8); Prothrombin Time 10.3 sec (9.1-11.1)
[2024-02-12 15:29] LABS: COVID-19 PCR Negative (Negative); Influenza A PCR Negative (Negative); Influenza B PCR Negative (Negative); RSV PCR Negative (Negative); Source Nasopharynx
[2024-02-12 15:32] LABS: Procalcitonin < 0.1 ng/mL
[2024-02-12 15:41] LABS: ALT 26 U/L (16-63); AST 18 U/L (15-37); Albumin 3.8 g/dL (3.4-5.0); Alkaline Phosphatase 61 U/L (46-116); Anion Gap 5.2 mmol/L (3-11); BUN 21 mg/dL (7-18); Bilirubin, Total 0.5 mg/dL (0.2-1.0); CO2 27.8 mmol/L (21.0-32.0); CREATININE 1.6 mg/dL (0.70-1.30); Calcium 9.1 mg/dL (8.5-10.1); Chloride 98 mmol/L (98-107); Estimated GFR 41.96 (mL/min/1.73m2); Glucose 102 mg/dL (74-106); Potassium 4.9 mmol/L (3.5-5.1); Sodium 131 mmol/L (136-145); TSH (W/Ref FT4) 0.45 uIU/mL (0.36-3.74); Total Protein 6.9 g/dL (6.4-8.2); Troponin I < 50 ng/L (< or =60)
[2024-02-12 15:42] LABS: Bilirubin Negative (Negative); Blood Negative (Negative); Clarity Clear (Clear); Glucose Negative (Negative); Ketones Negative (Negative); Leukocyte Esterase Negative (Negative); Nitrite Negative (Negative); Specific Gravity 1.015 (1.005-1.025); Urobilinogen 0.2 mg/dL (Up to 0.2)
--- NOTE | 2024-02-12 15:45 | DI.CT_ITS ---
Exam(s) CT HEAD SINUS WO EXAM: CT HEAD SINUS WO CLINICAL HISTORY: head and sinus pressure. TECHNIQUE: Imaging Protocol: Axial computed tomography images with coronal and sagittal reformatted images were created and reviewed COMPARISON: CT CT HEAD WO from 03/30/2023 FINDINGS: Ventricles and Extra axial spaces: Normal in size and morphology for the patient's age. Hemorrhage: None. Cerebral parenchyma: Normal. Midline shift: None. Brainstem/Cerebellum: Normal. Calvarium: Normal. Visualized Paranasal sinuses/Mastoids: There is mild mucosal thickening in the maxillary sinuses bila terally. The patient has had prior surgery with ethmoidectomy and removal of the medial christian of the maxillary sinuses. There is mild mucosal thickening in the ethmoid cavities bilaterally. There is mucosal thickening in the sphenoid sinuses bilaterally. No fluid levels are present. The mastoid ai r cells are clear. The nasal septum is midline. The turbinates are unremarkable. Soft Tissues: Unremarkable. IMPRESSION: 1. No acute intracranial process. 2. Prior sinus surgery as described. 3. Mucosal thickening involving the visualized paranasal sinuses but no air-fluid levels are seen to suggest acute sinusitis. RADIATION DOSE DELIVERED: 837.43mGy.cm Total DLP DATA REPOSITORY: All CT scans at this facility are submitted to the National Radiology Data Registry (NRDR) Dose Index Registry (DIR) with the [employer] (A[employer]). RADIATION OPTIMIZATION: All CT scans at this facility use at least one of these dose optimization te chniques: automated exposure control; mA and/or kV adjustment per patient size (includes targeted exa ms where dose is matched to clinical indication); or iterative reconstruction.
[2024-02-12 16:35] VITALS: BP 134/76; PULSE 68; RESP 16; TEMP 36.5; O2SAT 98
== END 2024-02-12 16:39 | disposition home or self-care (01) ==
PROVIDERS: Emergency Provider Emergency Medicine; PCP Family Medicine
DX: R51.9 Headache, unspecified (principal); R42 Dizziness and giddiness; R53.83 Other fatigue; Z86.79 Personal history of other diseases of the circulatory system; L40.9 Psoriasis, unspecified
CPT/HCPCS: 36415; 80053; 84145; 85652; 87637; 93005; 96900; 99284; 70450; 70486; 81003; 83735; 84443; 84484; 85025; 85610; 85730; 93010; 99283

== ENCOUNTER → 2024-02-15 05:05 | Outpatient (CLI) | payer MEDICARE, OTHER, SELFPAY ==
--- NOTE | 2024-02-15 14:29 | DI.CT_ITS ---
Exam(s) CT CHEST WO EXAM: CT CHEST WO CLINICAL HISTORY: Gradually worsening dyspnea,r06.09. TECHNIQUE: Multi planar reconstructions were performed. CONTRAST MATERIAL: None COMPARISON: CT CT THORACIC SPINE WO from 12/21/2023 CR XR CHEST 2V PA LATERAL from 01/19/2024 FINDINGS: CHEST: LUNGS: There is mild atelectasis in the lingular segment of the left lung. Tiny calcified granulomas noted in the left lung. There are no confluent infiltrates nor pleural effusions. No significant f ocal findings in the trachea and mainstem bronchi no bronchiectasis. MEDIASTINUM: There is no obvious hilar nor mediastinal adenopathy. Visualized thyroid unremarkable.No obvious axillary adenopathy CARDIAC: Heart size is normal. There is no pericardial effusion.Caliber of the thoracic aorta is wit hin upper normal limits. VISUALIZED UPPER ABDOMEN:No adrenal masses but there is abnormal XXXX streaking around the partially visualized bilateral kidneys. Some perinephric fluid is noted bilaterally. OSSEOUS: Left shoulder reverse prosthesis noted.. IMPRESSION: 1. Mild lung findings as described above. No prominent infiltrates. No pleural effusions. 2. No intrathoracic adenopathy. 3. There is perinephric fluid around both kidneys. Please note that only a small part of the kidneys is included in the field of view of this chest CT scan. RADIATION DOSE DELIVERED: 373.95mGy.cm Total DLP DATA REPOSITORY: All CT scans at this facility are submitted to the National Radiology Data Registry (NRDR) Dose Index Registry (DIR) with the [employer] (ACR). RADIATION OPTIMIZATION: All CT scans at this facility use at least one of these dose optimization te chniques: automated exposure control; mA and/or kV adjustment per patient size (includes targeted exa ms where dose is matched to clinical indication); or iterative reconstruction.
--- NOTE | 2024-02-15 14:30 | DI.US_ITS ---
APPROVED REPORT EXAM: Comprehensive 2D, Doppler, and color-flow Echocardiogram Patient Location: Out-Patient [employer]ocom[employer] Diesel: Kei Carver RDCS (AE) Indications: Worsening BLANCO Conclusion Borderline concentric left ventricular hypertrophy. Ejection fraction is 60%. Wall motion is normal Normal right ventricular size and function Both atria are mildly dilated. There is a bioprosthetic aortic valve. Function is normal. There is mild paravalvular regurgitation Mitral annular calcification. Mild mitral regurgitation Normal tricuspid valve with mild regurgitation. Estimated right ventricular systolic pressure is 26 mmHg Wall motion Left Ventricle Left ventricular cavity is small. The left ventricular systolic function is normal. The left ventricu lar ejection fraction is within the normal range. Borderline concentric left ventricular hypertrophy. There is normal LV segmental wall motion. There is no ventricular septal defect visualized. LVEF is 60%. Right Ventricle The right ventricle is normal size. The right ventricular systolic function is normal. Atria Left atrium is mildly dilated. Right atrium is mildly dilated. The interatrial septum is intact with no evidence for an atrial septal defect. Aortic Valve Bioprosthetic aortic valve is present. There is no aortic valvular stenosis. Mild aortic regurgitatio n. Mitral Valve Moderate mitral annular calcification. No evidence of mitral valve stenosis. Mild mitral regurgitatio n. Tricuspid Valve The tricuspid valve is normal in structure. There is no tricuspid valve stenosis. Mild tricuspid regu rgitation. The RVSP is 25.8 mmHg. Pulmonic Valve The pulmonary valve is normal in structure. There is no pulmonic valvular stenosis. Trace pulmonic re gurgitation. Great Vessels The aortic root is normal in size. The ascending aorta is normal in size. Aortic arch is not well vis ualized. IVC is normal in size and collapses >50% with inspiration. Pericardium There is no pericardial effusion. 2D Dimensions IVSD d PLAX 1.08 cm M: 0.6-1.2 Ao Root d 2.88 cm M: 3.1 - 3.7 LVPW d PLAX 1.11 cm M: 0.6 - 1.2 Ao Asc Diam d 3.26 cm M: 2.6 - 3.4 LVID d PLAX 3.14 cm M: 4.2 - 5.8 LVDs 2.18 cm M: 2.5 - 4.0 LV EF Teichholz 59.6 % FS 30.61 % LV EDV (Teich) 39.2 mL LV ESV (Teich) 15.9 mL Stroke Vol Index (Teich) 13.51 M-Mode TAPSE 1.28 cm (M/F) >1.7 Auto EF LV EDV A4C 69.9 mL LV EDV A2C 88.5 mL LV EDV BP 78.7 mL LV ESV A4C 28.1 mL LV ESV A2C 35.0 mL LV ESV BP 31.4 mL LVEF(%) A4C 59.9 % LVEF(%) A2C 60.5 % LVEF(%) BP 60.1 % LV SV A4C 41.8 ml LV SV A2C 53.5 ml LV SV BP 47.3 ml LV CO A4C 3.0 L/min LV CO A2C 3.8 L/min LV CO BP 3.4 L/min HR A4C 72.73 BPM HR A2C 70.59 BPM LV EDV Index (BP) LA Volume LA Length A4C 4.7 cm LA Length A2C 4.2 cm LA Area A4C s 14.86 cm2 LA Area A2C s 10.08 cm2 LA Vol A4C A-L 40.03 mL LA Vol A2C A-L 20.79 mL LA Vol Biplane A-L 30.6 mL LA Vol/BSA A4C A-L LA Vol/BSA A2C A-L LA Vol/BSA BP A-L 17.7 mL/m2 LA Vol A4C MOD 38.4 mL LA Vol A2C MOD 20.1 mL LA Vol BP MOD 28.4 mL RA Volume RA Area A4C 13.9 cm2 RA ESV A4C (A-L) 39.3mL RA Vol/BSA A4C A-L RA Length A4C 4.2 cm RA ESV A4C (MOD) 37.5mL LV Diastology MV E' medial 0.062 (>0.07 m/s) MV E Vmax 0.83 (0.4-1.3 m/s) MV E/E' MED 13.51 (<14) MV A Vmax 1.00 (0.4-1.3 m/s) MV E' lateral 0.076 (>0.1 m/s) E/A Ratio 0.8 MV E/E' LAT 10.97 (<14) MV E' Average 0.069 m/s MV E/E'(average) 12.11 Aortic Valve AoV Peak Grad 21.8 mmHg LVOT Vmax 0.67 m/s AR Decel [place] 2.1m/sec2 LVOT Peak Grad 1.8 mmHg AR DT 1110 msec LVOT VTI 0.135 m AR PHT 322 msec LVOT Mean Grad 0.9 mmHg AR Vmax 2.33 m/s LVOT SV 41.48 mL LVOT Diam s 1.95 cm AV Regurg Peak Gr. 21.75 mmHg Mitral Valve MV DT 249 (160-240 msec) MV Vmax TIPS 0.97 m/s MV Mean Grad 1.2 (<2mmHg) MV VTI 0.274 m Pulmonary Valve PV Vmax 0.86 (0.5-1.5 m/s) RVOT Vmax 0.46 m/s PV Peak Grad 2.9 mmHg RVOT Peak Gr. 0.9 mmHg PV Mean Michael 0.60 m/s RVOT VTI 0.085 m PV Mean Grad 1.6 mmHg RVOT Mean Gr. 0.5 mmHg Tricuspid Valve RA Pressure 3.00 mmHg TR Vmax 2.39 m/s TR Peak Grad 22.8 mmHg RVSP (TR) 25.8 mmHg
== END ==
PROVIDERS: PCP Family Medicine; Visit Provider Family Medicine
DX: R06.09 Other forms of dyspnea (principal)
CPT/HCPCS: 71250; 93306

== ENCOUNTER 2024-02-18 13:30 | Emergency (ER) | payer MEDICARE, OTHER, SELFPAY ==
[2024-02-18 13:33] VITALS: BP 124/53; PULSE 83; RESP 18; TEMP 37; O2SAT 93
[2024-02-18] MEDS: Acetaminophen 500 MG TAB 1000 MG PO (14:00)
--- NOTE | 2024-02-18 15:02 | DI.RAD_ITS ---
Exam(s) XR RIBS RT W PA LAT CHEST EXAM: XR RIBS RT W PA LAT CHEST CLINICAL HISTORY: RIGHT RIB PAIN. COMPARISON: CR XR CHEST 2V PA LATERAL from 01/19/2024 FINDINGS: Four images were obtained. LUNGS: Clear. No right pneumothorax or right pleural effusion is identified. Note is made of an aort ic valve replacement. BONES: There are old healed fractures involving the posterior aspects of the right 6 and 7th ribs. N o acute right displaced rib fractures are seen. No bony destructive lesion is seen. IMPRESSION: No acute displaced right rib fractures are identified. TECHNIQUE: 2D digital imaging was performed.Four images were obtained.
--- NOTE | 2024-02-18 15:02 | DI.RAD_ITS ---
Exam(s) XR HAND RT COMPLETE XR WRIST RT COMPLETE EXAM: XR HAND RT COMPLETE and XR wrist RT complete CLINICAL HISTORY: RIGHT HAND PAIN. TECHNIQUE: 2D digital imaging was performed of the right wrist and hand. Six images were obtained. AP, lateral and oblique views were obtained. COMPARISON: CR XR WRIST RT COMPLETE from 02/18/2024 FINDINGS: BONES: No acute fracture is present. No bony destructive lesion is seen. There has been resection the trapezium. JOINTS: No dislocation present. There are degenerative changes seen of the hand and wrist characteriz ed by joint space narrowing and osteophytes. There are degenerative changes seen at the distal radia l ulnar joint. SOFT TISSUE: Vascular calcifications are present. IMPRESSION: 1. No acute fracture or dislocation. 2. Degenerative changes seen in the hand and wrist. 3. Status post resection of the trapezium. DATA REPOSITORY: RADIATION DOSE DELIVERED:
--- NOTE | 2024-02-18 15:49 | ED.GENADUL_ITS ---
Discharge Plan Disposition Patient Disposition: Home Condition: Stable Discharge Details Clinical Impression: Contusion of hand, Chest wall contusion, Fall, Contusion of knee, right Primary Care Provider: Umesh Covarrubias ED Provider: Kassi Gutierrez Home Meds and New Rx's Prescriptions: No Action lorazepam 1 mg tablet 1 mg PO QHS PRN (Reason: insomnia/back spasms) Qty: 30 2RF Hold Instructions: Changed by Provider rosuvastatin 20 mg tablet 20 mg PO DAILY aspirin 81 mg capsule 81 mg PO DAILY Hold Instructions: Home Medication placed on hold at Doctor's office losartan 50 mg tablet 50 mg PO DAILY Qty: 90 3RF Rx Instructions: pt stopped and then restarted this me on his own 10/13/21 cc albuterol sulfate 2.5 mg /3 mL (0.083 %) solution for nebulization 2.5 mg inhalation Q4H Qty: 540 3RF [place] Saline 0.65 % aerosol,spray 1 spray intranasal Q2H PRN calcium carbonate 500 mg calcium (1,250 mg) tablet,chewable 1,000 mg PO .Every 4 hours PRN polyethylene glycol 3350 [Miralax] 17 gram/dose powder 17 g PO DAILY PRN pantoprazole 40 mg tablet,delayed release (DR/EC) 40 mg PO BID Qty: 180 3RF vitamin B complex Capsule 1 cap PO DAILY Patient Comments: PT not taking coenzyme Q10 [Co Q-10] 100 mg Capsule 300 mg PO DAILY Hold Instructions: Home Medication placed on hold at Doctor's office Probiotic 3 billion cell Capsule 3,000 mmu cells PO DAILY diazepam [Valium] 5 mg tablet 5 mg PO BID PRNQty: 7 0RF Discharge Instructions Instructions: Minor Contusion ED Additional Instructions: No broken bones on x-ray imaging today. Please continue Tylenol as needed for pain. HPI General Date/Time Provider Initiated Documentation: 02/18/24 13:51 . Limitations to Documentation: no limitations . Information obtained by: patient . HPI Narrative: 83-year-old gentleman with past medical history of CKD, CAD presents for evaluation after a fall. Reports that he fell 2 days ago after tripping. He reports that he has bruising of his right hand and the right side of his ribs. Pain is moderate, throbbing, worse with any movement. He reports some tenderness to his right knee, but no difficulty with walking. Denies any pain with walking or pain in his hips. He did not have any loss of consciousness or head injury. Related Data Home Medications Medication Instructions Recorded Confirmed coenzyme Q10 100 mg capsule (Co 300 mg PO DAILY 09/03/19 02/18/24 Q-10) lactobacillus combination no.4 3 3,000 mmu cells PO DAILY 09/03/19 02/18/24 billion cell capsule (Probiotic) vitamin B complex 1 cap PO DAILY 09/03/19 02/18/24 aspirin 81 mg capsule 81 mg PO DAILY 12/05/21 02/18/24 losartan 50 mg tablet 50 mg PO DAILY #90 tabs 02/20/23 02/18/24 albuterol sulfate 2.5 mg/3 mL 2.5 mg (3 mL) inhalation Q4H #540 04/07/23 (0.083 %) solution for nebulization mL calcium carbonate 1,000 mg PO .Every 4 hours PRN 08/07/23 02/18/24 sodium chloride 0.65 % nasal spray 1 spray intranasal Q2H PRN 08/07/23 02/18/24 aerosol ([place] Saline) rosuvastatin 20 mg tablet 20 mg PO DAILY 10/15/23 02/18/24 lorazepam 1 mg tablet 1 mg PO QHS PRN insomnia/back 11/30/23 02/18/24 spasms #30 tabs diazepam 5 mg tablet (Valium) 5 mg PO BID PRN #7 tabs 12/21/23 02/18/24 polyethylene glycol 3350 17 17 g PO DAILY PRN 12/21/23 02/18/24 gram/dose oral powder (Miralax) pantoprazole 40 mg tablet,delayed 40 mg PO BID #180 tabs 02/08/24 02/18/24 release Previous Rx's Medication Instructions Recorded losartan 50 mg tablet 50 mg PO DAILY #90 tabs 02/20/23 albuterol sulfate 2.5 mg/3 mL 2.5 mg (3 mL) inhalation Q4H #540 04/07/23 (0.083 %) solution for nebulization mL lorazepam 1 mg tablet 1 mg PO QHS PRN insomnia/back 11/30/23 spasms #30 tabs diazepam 5 mg tablet (Valium) 5 mg PO BID PRN #7 tabs 12/21/23 pantoprazole 40 mg tablet,delayed 40 mg PO BID #180 tabs 02/08/24 release Allergies Allergy/AdvReac Type Severity Reaction Status Date / Time metronidazole Allergy Intermediate Skin Rash, Verified 02/18/24 13:35 swelling, itchy sulfamethoxazole Allergy turns red Verified 02/18/24 13:35 [From Bactrim] trimethoprim [From Bactrim] Allergy turns red Verified 02/18/24 13:35 ropinirole AdvReac Severe insomina, Verified 02/18/24 13:35 weakness, intense fatigue zolpidem [From Ambien] AdvReac sleep Verified 02/18/24 13:35 walk General Stated Complaint: Chest/Rib ANIBAL: 3 Exam Narrative Exam Narrative: Review of Systems: All systems reviewed & are unremarkable except as noted in HPI and below Well-developed, no acute distress NCAT PERRL, normal conjunctiva RRR, no murmur, mild right lateral chest wall tenderness, no obvious flail chest, no crepitus Unlabored respiratory effort, no hypoxia, clear breath sounds bilaterally Nondistended abdomen, nontender Extremities Right hand with contusion on the dorsal surface particularly over the thumb and first finger, full range of motion noted, no snuffbox tenderness, neurovascularly intact Small abrasion over the right anterior knee, normal range of motion, normal gait, no effusion No rashes or lesions. no focal neurologic deficits Appropriate mood and affect Course Vital Signs Vital signs: Vital Signs Temperature 37.0 C 02/18/24 13:33 Pulse 83 02/18/24 13:33 Respiratory Rate 18 02/18/24 13:33 Blood Pressure 124/53 L 02/18/24 13:33 Pulse Oximetry 93 02/18/24 13:33 Temperature 37.0 C 02/18/24 13:33 Temperature Source Temporal Artery Scan 02/18/24 13:33 Pulse 83 02/18/24 13:33 Respiratory Rate 18 02/18/24 13:33 Respiratory Effort Normal, Non-Labored 02/18/24 13:37 Blood Pressure 124/53 L 02/18/24 13:33 Blood Pressure Position Sitting 02/18/24 13:33 Pulse Oximetry 93 02/18/24 13:33 Oxygen Delivery Method Room Air 02/18/24 13:33 Oxygen Flow Rate 0 02/18/24 13:33 Medical Decision Making Emergent evaluation of injuries after a fall. Patient fell 2 days ago. Based on his description of the events, this does not sound like cardiogenic syncope. There are no signs of head trauma, so I doubt CVA or intracranial process. I do not think head imaging is indicated at this time. Will give pain medication in the emergency department and get imaging of the areas. X-ray imaging is unremarkable for any acute process. No acute fractures noted. Plan for discharge home. As patient has CKD, recommend Tylenol for pain. Medical Records Medical records reviewed: Yes I reviewed the patient's medical records. Lab Data Lab results reviewed: Yes I reviewed the patient's lab results. Quality:SDOH Health Related Social Needs: No Data to Display PFSH All Active Problems Contusion of knee, right (Acute) Fall (Acute) Chest wall contusion (Acute) Contusion of hand (Acute) Fullness in head (Acute) Fatigue (Acute) BLANCO (dyspnea on exertion) (Acute) Other idiopathic scoliosis, thoracolumbar region (Acute) Acquired hammertoes of both feet (Acute) Nasal congestion (Acute) Pharyngitis (Acute) BPH w urinary obs/LUTS (Acute) Thyroiditis (Acute) Excessive cerumen in both ear canals (Acute) Chronic hyponatremia (Acute) Bronchomalacia (Acute) Stage III chronic kidney disease (Acute) Dx necessary for at-risk foot care with Podiatry Diverticulitis (Chronic) GERD (gastroesophageal reflux disease) (Chronic) HTN (hypertension) (Chronic) Hypercholesterolemia (Acute) Dizziness and giddiness (Acute) Malaise and fatigue (Acute) Cerebrovascular disease (Acute) Aortic valve disorder (Acute) Prostate cancer (Chronic) Diverticular disease of colon (Acute) Iron deficiency anemia (Acute) Depressive disorder (Acute) Headache (Acute) Chronic pansinusitis (Acute) Chronic cough (Acute) White coat syndrome with hypertension (Chronic) Tests in the 120s at home Cough (Acute) per Nikki 02/10/2020 started Breo inhaler 03/02/20 F/U with Dr Jordan, next ov 04/06/20 Hip osteoarthritis (Acute) Obstructive sleep apnea (Chronic ~2017) Moderate-PAP therapy H/O endoscopy (Chronic) 11/2020 Sinusitis, chronic 11/04/21 LA low grade esophageal ulcer, 2 cm Hiatal Hernia Acute dyspnea (Acute) Insomnia (Chronic) Sleep Clinic. 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) Onychomycosis (Acute 04/23/22) History of hemoptysis (Acute) Stenosis of carotid artery (Acute) 05/22/22 [facility] [place]ascular Arteriosclerosis of left carotid artery (Acute) 05/22/22 Vascular Eczema (Acute) start narrow band UVB bid at [facility] History of vascular surgery (Chronic) Stenting of L internal carotid artery, 06/28, [facility] [place], started plavix Nail dystrophy (Acute) Corns and callosities (Acute) Left hip pain (Acute) Impacted cerumen, bilateral (Acute) Conductive hearing loss, external ear (Acute) Long-term current use of proton pump inhibitor therapy (Acute) Sacral back pain (Acute) referred to Spine Clinic per note 01/02/23 [facility] [place] Osteopenia (Acute) Syncope (Chronic) Syncope (Chronic) Spondylolisthesis at L4-L5 level (Acute) Medical History History of pyloric stenosis as a child Surgical History H/O lumbosacral spine surgery H/O laminectomy (07/17/23) [facility] Bilateral laminectomy, medial facetectomy, foraminotomy L4-5; Posterior ins trumentation L4-5; Posterolateral arthrodesis L4-5; Application of local autograft; Application of allograft morselized History of carotid endarterectomy 2020 H/O colonoscopy (~11/04/21) 11/04/21 Dr Tyler History of colon resection H/O aortic valve replacement History of tonsillectomy H/O shoulder surgery H/O hemorrhoidectomy History of hernia repair Family History Father Tuberculosis Mother Breast cancer Heart disease Sister Cancer Heart disease Hypertension Social History Smoking/Tobacco Use Status: Former Tobacco Use Quit Date: 09/07/1964 Pack- years: 40 Tobacco: How many years used: 14 Smoking risk assessment performed?: Yes Alcohol Intake: current Alcohol Intake frequency: holidays/special occasions only Alcohol type: wine and hard liquor Drug use: Never Substance use type: does not use Adopted: No Caregiver/Support person: No Foster care: No Household members: spouse Housing: house Number of Children: 1 Education Level: college Do you need help understanding health information?: Never 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 Pets and animals: No Sexually active: Yes Do you think of yourself as: straight/heterosexual Current gender identity: male What is your relationship status?: How often do you talk on the phone with friends or family?: three or more times per week How often do you get together with friends or relatives?: never How often do you attend episcopal or jew services?: decline to answer Do you belong to any clubs or organized social groups?: no Panel score (0-1 are the most socially isolated patients): 2 What type of physical activity do you participate in: other Details: 2nd Degree Shalini Rodarte Duration: 60-90 minutes/day Frequency: 1-2 times per week Seatbelt use: always Drive intox or ride w/intox steam 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
[2024-02-18 16:43] VITALS: BP 124/53; PULSE 83; RESP 18; TEMP 37; O2SAT 93
== END 2024-02-18 16:44 | disposition home or self-care (01) ==
PROVIDERS: Emergency Provider Emergency Medicine; PCP Family Medicine
DX: S60.221A Contusion of right hand, initial encounter (principal); S20.211A Contusion of right front wall of thorax, initial encounter; S80.01XA Contusion of right knee, initial encounter; I12.9 Hypertensive chronic kidney disease with stage 1 through stage 4 chronic kidney disease, or unspecified chronic kidney disease; N18.30 Chronic kidney disease, stage 3 unspecified; I25.10 Atherosclerotic heart disease of native coronary artery without angina pectoris; Z79.82 Long term (current) use of aspirin; Z95.2 Presence of prosthetic heart valve; Z87.891 Personal history of nicotine dependence
CPT/HCPCS: 99283; 71046; 71100; 73110; 73130

== ENCOUNTER 2024-02-20 04:14 | Emergency (ER) | payer MEDICARE, OTHER, SELFPAY ==
[2024-02-20 04:13] VITALS: BP 146/83; PULSE 82; RESP 18; TEMP 36.6; O2SAT 95
--- NOTE | 2024-02-20 04:15 | RT.EKG_ITS ---
APPROVED REPORT Exam: Resting ECG Reason for Exam: abd pain Patient Location: E HR:81 bpm ECG Measurements Heart Rate 81 AXIS WA 199 P 62 QRSd 80 QRS 33 QT 363 T 49 QTc 423 Conclusion Sinus rhythm...normal P axis, V-rate 60- 99 Multiple ventricular premature complexes...V complexes w/ short R-R intervls Left atrial enlargement...P, P'>60mS, <-0.15mV V1 Anteroseptal infarct, old...Q >40mS, V1-V2 no ST segment or T wave abnormalities to suggest occlusive [place]
--- NOTE | 2024-02-20 04:45 | DI.CT_ITS ---
Exam(s) CT ABDOMEN PELVIS W EXAM: CT ABDOMEN PELVIS W CLINICAL HISTORY: diffuse abdominal pain, no BM x 5 days TECHNIQUE: Imaging Protocol: Axial computed tomography images with coronal and sagittal reformatted images were created and reviewed. CONTRAST MATERIAL: Intravenous: Omnipaque 350 Contrast volume:100 mL Oral: No COMPARISON: CT CT CHEST PE CTA from 05/14/[address] ABDOMEN PELVIS W from 12/13/2022 FINDINGS: ABDOMEN: Lung Bases: There is a small hiatal hernia. There is dependent atelectasis in the lung bases. Liver: Normal density. No measurable mass. Portal, Superior Mesenteric, and Splenic Veins: Unremarkable. Gallbladder and Biliary Tract: Noncalcified soft tissue is seen in the dependent portion of the gallb ladder. This may represent noncalcified stones or sludge. There is no biliary ductal dilatation. Pancreas: Normal density, no abnormal calcifications or inflammatory process. Spleen: Normal. Adrenals: No masses seen. Kidneys: Normal size, contour and axis. No radiodense stones or obstructive uropathy. No masses seen. There is infiltration in the perinephric soft tissues. Abdominal Aorta: Abdominal portion non-dilated. Atherosclerotic calcification is present. Bowel: There is an anastomosis seen in the distal sigmoid colon. There are diverticula seen in the c olon but no evidence of acute diverticulitis. Dilated fluid-filled loops of colon are present. The cecum is enlarged with a diameter of 8.5 cm. There is mild dilatation of the distal small bowel. Th ere is no bowel wall thickening. No pneumatosis. The stomach is decompressed limiting evaluation. Appendix is unremarkable. Peritoneal Cavity: No ascites, collection or mesenteric inflammatory response. No free air. Lymph Nodes: Within normal limits. Bones: Postsurgical changes are now seen at L4-L5 with posterior spinal rods and L4 laminectomy. The re is grade 1 anterolisthesis of L4 on L5. Multilevel moderate degenerative changes are present thro ughout the lumbar spine. Soft Tissues: There is a small fat containing umbilical hernia. PELVIS: Bladder: Symmetric distention, no gross wall thickening. Reproductive Organs: There is an enlarged prostate gland. Lymph Nodes: Within normal limits. Bones: Within normal limits for the patient's age. IMPRESSION: 1. There is stool and fluid seen predominantly throughout the colon which is moderately dilated. Thi s may represent constipation and/or diarrheal illness. No transition point is seen to suggest an obs truction. There is no bowel wall thickening. 2. There is persistent bilateral perinephric edema. This may be a normal anatomic variant. It is un changed. 3. Enlarged prostate gland. 4. Since the prior CT examination there has been L4-5 posterior spinal surgery. RADIATION DOSE DELIVERED: Total DLP DATA REPOSITORY: All CT scans at this facility are submitted to the National Radiology Data Registry (NRDR) Dose Index Registry (DIR) with the [employer] (ACR). RADIATION OPTIMIZATION: All CT scans at this facility use at least one of these dose optimization te chniques: automated exposure control; mA and/or kV adjustment per patient size (includes targeted exa ms where dose is matched to clinical indication); or iterative reconstruction.
--- NOTE | 2024-02-20 04:48 | W.ED.GENAD ---
Discharge Plan Disposition Patient Disposition: Home Condition: Good Discharge Details Clinical Impression: Abdominal pain, Constipated Primary Care Provider: Umesh Covarrubias ED Provider: Romana Solomon Home Meds and New Rx's Prescriptions: Continued lorazepam 1 mg tablet 1 mg PO QHS PRN (Reason: insomnia/back spasms) Qty: 30 2RF Hold Instructions: Changed by Provider rosuvastatin 20 mg tablet 20 mg PO DAILY aspirin 81 mg capsule 81 mg PO DAILY Hold Instructions: Home Medication placed on hold at Doctor's office losartan 50 mg tablet 50 mg PO DAILY Qty: 90 3RF Rx Instructions: pt stopped and then restarted this me on his own 10/13/21 cc albuterol sulfate 2.5 mg /3 mL (0.083 %) solution for nebulization 2.5 mg inhalation Q4H Qty: 540 3RF [place] Saline 0.65 % aerosol,spray 1 spray intranasal Q2H PRN calcium carbonate 500 mg calcium (1,250 mg) tablet,chewable 1,000 mg PO .Every 4 hours PRN polyethylene glycol 3350 [Miralax] 17 gram/dose powder 17 g PO DAILY PRN pantoprazole 40 mg tablet,delayed release (DR/EC) 40 mg PO BID Qty: 180 3RF vitamin B complex Capsule 1 cap PO DAILY Patient Comments: PT not taking coenzyme Q10 [Co Q-10] 100 mg Capsule 300 mg PO DAILY Hold Instructions: Home Medication placed on hold at Doctor's office Probiotic 3 billion cell Capsule 3,000 mmu cells PO DAILY diazepam [Valium] 5 mg tablet 5 mg PO BID PRNQty: 7 0RF Discharge Instructions Instructions: Abdominal Pain, Adult ED, Constipation, Adult ED Additional Instructions: Miralax 3 times a day until you have a bowel movement, then once day every day going forward. Call your primary care doctor today to schedule an appointment for within the next 72 hours to followup on your visit here. Mention that your sodium was low here in the emergency department- they may want to recheck this. Return to the emergency department for new or worsening symptoms including worsening abdominal pain, if you stop passing gas (farting), or if you have nausea or vomiting. Referrals: Umesh Covarrubias DO [Primary Care Provider] - HPI General Mode of arrival: EMS. Date/Time Provider Initiated Documentation: 02/20/24 04:21. Limitations to Documentation: no limitations. Information obtained by: patient. HPI Narrative: 83yo M with hx of HTN, diverticulitis, colon resection, presenting with abdominal pain for 5 days. Pain is diffuse, worst across the upper middle abdomen, and has no alleviating or aggravating factors. Has been slowly worsening. No BM in the last 5 days. Is passing flatus, feels bloated. No nausea or vomiting. Recieved 1g of tylenol from EMS. He is otherwise in his usual state of health with no fevers, chills, rash, dysuria, hematuria, or other concerns. Related Data Home Medications Medication Instructions Recorded Confirmed coenzyme Q10 100 mg capsule (Co 300 mg PO DAILY 09/03/19 02/20/24 Q-10) lactobacillus combination no.4 3 3,000 mmu cells PO DAILY 09/03/19 02/20/24 billion cell capsule (Probiotic) vitamin B complex 1 cap PO DAILY 09/03/19 02/20/24 aspirin 81 mg capsule 81 mg PO DAILY 12/05/21 02/20/24 losartan 50 mg tablet 50 mg PO DAILY #90 tabs 02/20/23 02/20/24 albuterol sulfate 2.5 mg/3 mL 2.5 mg (3 mL) inhalation Q4H #540 04/07/23 02/20/24 (0.083 %) solution for nebulization mL calcium carbonate 1,000 mg PO .Every 4 hours PRN 08/07/23 02/20/24 sodium chloride 0.65 % nasal spray 1 spray intranasal Q2H PRN 08/07/23 02/20/24 aerosol ([place] Saline) rosuvastatin 20 mg tablet 20 mg PO DAILY 10/15/23 02/20/24 lorazepam 1 mg tablet 1 mg PO QHS PRN insomnia/back 11/30/23 02/20/24 spasms #30 tabs diazepam 5 mg tablet (Valium) 5 mg PO BID PRN #7 tabs 12/21/23 02/20/24 polyethylene glycol 3350 17 17 g PO DAILY PRN 12/21/23 02/20/24 gram/dose oral powder (Miralax) pantoprazole 40 mg tablet,delayed 40 mg PO BID #180 tabs 02/08/24 02/20/24 release Previous Rx's Medication Instructions Recorded losartan 50 mg tablet 50 mg PO DAILY #90 tabs 02/20/23 albuterol sulfate 2.5 mg/3 mL 2.5 mg (3 mL) inhalation Q4H #540 04/07/23 (0.083 %) solution for nebulization mL lorazepam 1 mg tablet 1 mg PO QHS PRN insomnia/back 11/30/23 spasms #30 tabs diazepam 5 mg tablet (Valium) 5 mg PO BID PRN #7 tabs 12/21/23 pantoprazole 40 mg tablet,delayed 40 mg PO BID #180 tabs 02/08/24 release Allergies Allergy/AdvReac Type Severity Reaction Status Date / Time metronidazole Allergy Intermediate Skin Rash, Verified 02/20/24 04:20 swelling, itchy sulfamethoxazole Allergy turns red Verified 02/20/24 04:20 [From Bactrim] trimethoprim [From Bactrim] Allergy turns red Verified 02/20/24 04:20 ropinirole AdvReac Severe insomina, Verified 02/20/24 04:20 weakness, intense fatigue zolpidem [From Ambien] AdvReac sleep Verified 02/20/24 04:20 walk General Stated Complaint: Abd Prob ANIBAL: 3 Review of Systems Narrative: see HPI Exam Narrative Exam Narrative: General: Alert, well appearing, well nourished, in no acute distress. Head: Normocephalic, atraumatic Neck: Trachea midline, ?Neck supple. Cardiac: ?RRR, no murmurs appreciated Resp: No respiratory distress. CTAB. Abd: ?Soft, non-distended, mildly tender to palpation worst in the periumbilcial area : ?No suprapubic tenderness. No CVA tenderness. Extremities: ?No deformities.? No peripheral edema. Neurologic: GCS 15. ? Moves all extremities freely against gravity Course Vital Signs Vital signs: Vital Signs Temperature 36.6 C 02/20/24 04:13 Pulse 82 02/20/24 04:13 Respiratory Rate 18 02/20/24 04:13 Blood Pressure 146/83 H 02/20/24 04:13 Pulse Oximetry 95 02/20/24 04:13 Temperature 36.6 C 02/20/24 04:13 Temperature Source Temporal Artery Scan 02/20/24 04:13 Pulse 82 02/20/24 04:13 Respiratory Rate 18 02/20/24 04:13 Blood Pressure 146/83 H 02/20/24 04:13 Blood Pressure Position Sitting 02/20/24 04:13 Pulse Oximetry 95 02/20/24 04:13 Oxygen Delivery Method Room Air 02/20/24 04:13 Oxygen Flow Rate 0 02/20/24 04:13 Pain Level 5 02/20/24 04:13 Medical Decision Making 83yo M with hx of HTN, diverticulitis, colon resection, presenting with abdominal pain for 5 days. Pain is diffuse, worst across the upper middle abdomen, and has no alleviating or aggravating factors. No BM in the last 5 days. Vital signs reassuring on arrival, on exam he has mild periumbilical tenderness with no rebound or guarding. May be simple constipation however given age and surgical history, will evaluate with labs and CT imaging. Will add single dose of toradol for pain. Labs reviewed as below, CBC with mild leukocytosis and no anemia, CMP with hyponatremia to 130 (131 on most recent prior [facility] labs 02/12/24), Cr 1.9 not significantly off baseline, lactate normal. CT independently reviewed, no clear obstruction or free fluid on my view, agree with radiology read below with constipation. On reassessment he is sleeping comfortable; upon waking reports feeling improved. Abdomen remains benign. No indication for disimpaction. Given miralax here and encouraged to take consistently at home until BM produced. Discharged home; discharge instructions and strict return precautions were reviewed with patient who verbalized understanding. All questions were answered and he is in full agreeement with the plan. Medical Records Medical records reviewed: Yes I reviewed the patient's medical records. Imaging Data Radiologic Study: Imaging: CT Scan Radiologist's impression: IMPRESSION: 1. Heavy colonic stool burden with dilation of the cecum, however no evidence for obstruction. No obstructing mass or lesion. There is an anastomotic suture chain within the pelvis of the large bowel loops, however there is normal caliber bowel proximally and distally. No wall thickening or surrounding inflammatory change. No pneumatosis. No abnormal enhancement This likely reflects severe constipation. 2. Additional nonacute findings as above Lab Data Lab results reviewed: Yes I reviewed the patient's lab results. Labs: Laboratory Tests Range/Units 02/20/24 02/20/24 04:20 04:55 WBC (4.4-10.8) 10^3/uL 12.31 H RBC (4.36-5.78) 10^6/uL 5.22 Hgb (13.5-17.5) g/dL 16.3 Hct (40.0-50.0) % 48.6 MCV (80-95) fL 93 MCH (27.0-33.0) pg 31.2 MCHC (32.0-36.0) % 33.5 RDW (11.8-14.1) % 14.2 H Plt Count (130-400) 10^3/uL 174 MPV (8.0-11.0) fL 9.9 Immature Gran % % 0.5 Neutrophils % % 53.1 Lymphocytes % % 27.7 Monocytes % % 7.9 Eosinophils % % 10.2 Basophils % % 0.6 Nucleated RBC % (0.0-0.3) % 0.0 Absolute Neutrophils (1.2-6.7) 10^3/uL 6.54 Absolute Lymphocytes (1.2-3.4) 10^3/uL 3.41 H Absolute Monocytes (0.1-0.8) 10^3/uL 0.97 H Absolute Eosinophils (0.0-0.7) 10^3/uL 1.26 H Absolute Basophils (0.0-0.2) 10^3/uL 0.07 VBG Lactate (0.6-1.4) mmol/L 0.6 Sodium (136-145) mmol/L 130 L Potassium (3.5-5.1) mmol/L 4.7 Chloride (98-107) mmol/L 97 L Carbon Dioxide (21.0-32.0) mmol/L 27.8 Anion Gap (3-11) mmol/L 5.2 BUN (7-18) mg/dL 25 H Creatinine (0.70-1.30) mg/dL 1.9 H Est GFR (CKD-EPI 2020) (mL/min/1.73m2) 34.14 Glucose (74-106) mg/dL 83 Calcium (8.5-10.1) mg/dL 8.9 Total Bilirubin (0.2-1.0) mg/dL 0.6 AST (15-37) U/L 18 ALT (16-63) U/L 21 Alkaline Phosphatase (46-116) U/L 77 Total Protein (6.4-8.2) g/dL 6.1 L Albumin (3.4-5.0) g/dL 3.5 Quality:SDOH Health Related Social Needs: No Data to Display PFSH All Active Problems (Updated 02/20/24 @ 07:15 by Romana Solomon MD) Constipated (Acute) Abdominal pain (Acute) Contusion of knee, right (Acute) Fall (Acute) Chest wall contusion (Acute) Contusion of hand (Acute) Fullness in head (Acute) Fatigue (Acute) BLANCO (dyspnea on exertion) (Acute) Other idiopathic scoliosis, thoracolumbar region (Acute) Acquired hammertoes of both feet (Acute) Nasal congestion (Acute) Pharyngitis (Acute) BPH w urinary obs/LUTS (Acute) Thyroiditis (Acute) Excessive cerumen in both ear canals (Acute) Chronic hyponatremia (Acute) Bronchomalacia (Acute) Stage III chronic kidney disease (Acute) Dx necessary for at-risk foot care with Podiatry Diverticulitis (Chronic) GERD (gastroesophageal reflux disease) (Chronic) HTN (hypertension) (Chronic) Hypercholesterolemia (Acute) Dizziness and giddiness (Acute) Malaise and fatigue (Acute) Cerebrovascular disease (Acute) Aortic valve disorder (Acute) Prostate cancer (Chronic) Diverticular disease of colon (Acute) Iron deficiency anemia (Acute) Depressive disorder (Acute) Headache (Acute) Chronic pansinusitis (Acute) Chronic cough (Acute) White coat syndrome with hypertension (Chronic) Tests in the 120s at home Cough (Acute) per Nikki 02/10/2020 started Breo inhaler 03/02/20 F/U with Dr Jordan, next ov 04/06/20 Hip osteoarthritis (Acute) Obstructive sleep apnea (Chronic ~2017) Moderate-PAP therapy H/O endoscopy (Chronic) 11/2020 Sinusitis, chronic 11/04/21 [place] low grade esophageal ulcer, 2 cm Hiatal Hernia Acute dyspnea (Acute) Insomnia (Chronic) Sleep Clinic. 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) Onychomycosis (Acute 04/23/22) History of hemoptysis (Acute) Stenosis of carotid artery (Acute) 05/22/22 [facility] [place]ascular Arteriosclerosis of left carotid artery (Acute) 05/22/22 Vascular Eczema (Acute) start narrow band UVB bid at [facility] History of vascular surgery (Chronic) Stenting of L internal carotid artery, 06/28, [facility] [place], started plavix Nail dystrophy (Acute) Corns and callosities (Acute) Left hip pain (Acute) Impacted cerumen, bilateral (Acute) Conductive hearing loss, external ear (Acute) Long-term current use of proton pump inhibitor therapy (Acute) Sacral back pain (Acute) referred to Spine Clinic per note 01/02/23 [facility] [place] Osteopenia (Acute) Syncope (Chronic) Syncope (Chronic) Spondylolisthesis at L4-L5 level (Acute) Medical History History of pyloric stenosis as a child Surgical History H/O lumbosacral spine surgery H/O laminectomy (07/17/23) [facility] Bilateral laminectomy, medial facetectomy, foraminotomy L4-5; Posterior instrumentation L4-5; Posterolateral arthrodesis L4-5; Application of local autograft; Application of allograft morselized History of carotid endarterectomy 2020 H/O colonoscopy (~11/04/21) 11/04/21 Dr Tyler History of colon resection H/O aortic valve replacement History of tonsillectomy H/O shoulder surgery H/O hemorrhoidectomy History of hernia repair Family History Father Tuberculosis Mother Breast cancer Heart disease Sister Cancer Heart disease Hypertension Social History Smoking/Tobacco Use Status: Former Tobacco Use Quit Date: 09/07/1964 Pack-years: 42 Tobacco: How many years used: 14 Smoking risk assessment performed?: Yes Alcohol Intake: current Alcohol Intake frequency: holidays/special occasions only Alcohol type: wine and hard liquor Drug use: Never Substance use type: does not use Adopted: No Caregiver/Support person: No Foster care: No Household members: spouse Housing: house Number of Children: 1 Education Level: college Do you need help understanding health information?: Never 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 Pets and animals: No Sexually active: Yes Do you think of yourself as: straight/heterosexual Current gender identity: male What is your relationship status?: How often do you talk on the phone with friends or family?: three or more times per week How often do you get together with friends or relatives?: never How often do you attend denominational or mu-ism services?: decline to answer Do you belong to any clubs or organized social groups?: no Panel score (0-1 are the most socially isolated patients): 2 What type of physical activity do you participate in: other Details: 2nd Degree Shalini Rodarte Duration: 60-90 minutes/day Frequency: 1-2 times per week Seatbelt use: always Drive intox 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
[2024-02-20] MEDS: Normal Saline - Diluent 50 ML VIAL IJ (04:59)
[2024-02-20] MEDS: Omnipaque 350 MG/ML 100 ML BTL IJ (05:00)
[2024-02-20 05:02] LABS: Lactate 0.6 mmol/L (0.6-1.4)
[2024-02-20] MEDS: Ketorolac 15 MG/ML VIAL IVP (05:02)
[2024-02-20 05:07] LABS: Abs Immature Grans 0.06 10^3/uL (0.0-0.06); Absolute Basophil Count 0.07 10^3/uL (0.0-0.2); Absolute Lymphocyte Count 3.41 10^3/uL (1.2-3.4); Absolute Monocyte Count 0.97 10^3/uL (0.1-0.8); Basophils % 0.6 %; Eosinophils % 10.2 %; HCT 48.6 % (40.0-50.0); HGB 16.3 g/dL (13.5-17.5); Immature Grans % 0.5 %; Lymphocytes % 27.7 %; MCH 31.2 pg (27.0-33.0); MCHC 33.5 % (32.0-36.0); MCV 93 fL (80-95); MPV 9.9 fL (8.0-11.0); Monocytes % 7.9 %; Neutrophils % 53.1 %; Platelet Count 174 10^3/uL (130-400); RBC 5.22 10^6/uL (4.36-5.78); RDW 14.2 % (11.8-14.1); RDW-SD 49.1 fL; WBC 12.31 10^3/uL (4.4-10.8)
[2024-02-20 05:08] LABS: Absolute Eosinophil Count 1.26 10^3/uL (0.0-0.7); Absolute Neutrophil Count 6.54 10^3/uL (1.2-6.7)
[2024-02-20 05:21] LABS: ALT 21 U/L (16-63); AST 18 U/L (15-37); Albumin 3.5 g/dL (3.4-5.0); Alkaline Phosphatase 77 U/L (46-116); Anion Gap 5.2 mmol/L (3-11); BUN 25 mg/dL (7-18); Bilirubin, Total 0.6 mg/dL (0.2-1.0); CO2 27.8 mmol/L (21.0-32.0); CREATININE 1.9 mg/dL (0.70-1.30); Calcium 8.9 mg/dL (8.5-10.1); Chloride 97 mmol/L (98-107); Estimated GFR 34.14 (mL/min/1.73m2); Glucose 83 mg/dL (74-106); Potassium 4.7 mmol/L (3.5-5.1); Sodium 130 mmol/L (136-145); Total Protein 6.1 g/dL (6.4-8.2)
--- NOTE | 2024-02-20 07:08 | DI.VRAD_ITS ---
PROCEDURE INFORMATION: Exam: CT Abdomen And Pelvis With Contrast Exam date and time: 02/20/2024 5:17 AM Age: 83 years old Clinical indication: Abdominal pain; Additional info: Diffuse abdominal pain, no bm x 5 days TECHNIQUE: Imaging protocol: Computed tomography of the abdomen and pelvis with contrast. Contrast material: OMNI 350; Contrast volume: 100 ml; Contrast route: INTRAVENOUS (IV); COMPARISON: CT ABDOMEN PELVIS W 12/13/2022 4:51 PM FINDINGS: Lungs: Basilar scarring/atelectasis. Heart: Heavy mitral annulus calcifications. Diaphragm: Hiatal hernia. Liver: Normal. No mass. Gallbladder and bile ducts: Normal. No calcified stones. No ductal dilation. Pancreas: Normal. No ductal dilation. Spleen: Normal. No splenomegaly. Adrenal glands: Normal. No mass. Kidneys and ureters: Symmetric perinephric stranding/free fluid which is similar to prior comparison on 12/13/2022. Stomach and bowel: Anastomotic suture chain of the large bowel within the posterior pelvis there is a heavy amount of stool burden within the colon proximally the cecum reaches up to 10.1 cm with gradual return to normal size large bowel at the distal ascending and transverse colons. Colonic wall is unremarkable, there is no significant surrounding inflammatory stranding. There is no abnormal contrast enhancement or non enhancement of the colonic mucosa. Fluid-filled loops of small bowel dominant of the pelvis not reaching size criteria for pathology. Diverticulosis without evidence of diverticulitis. Appendix: The appendix is not well identified, no secondary signs of appendicitis. Intraperitoneal space: Unremarkable. No free air. No significant fluid collection. Vasculature: Moderate scattered calcified atherosclerotic disease of the visualized aorta and its major branches. 75% narrowing of the left renal artery ostia. 50% narrowing of the right renal artery ostia. Lymph nodes: Unremarkable. No enlarged lymph nodes. Urinary bladder: Bladder is distended without focal wall abnormality. Reproductive: Prostate enlargement with central dystrophic calcifications. Bones/joints: Diffuse severe degenerative change of the visualized osseous structures. Posterior spinal fusion hardware without evidence for acute surgical complication. Soft tissues: Small fat containing umbilical hernia. IMPRESSION: 1. Heavy colonic stool burden with dilation of the cecum, however no evidence for obstruction. No obstructing mass or lesion. There is an anastomotic suture chain within the pelvis of the large bowel loops, however there is normal caliber bowel proximally and distally. No wall thickening or surrounding inflammatory change. No pneumatosis. No abnormal enhancement This likely reflects severe constipation. 2. Additional nonacute findings as above. Dictated and Authenticated by: Maycol Joyner MD. Ordering:UZAIR Avendano MD
[2024-02-20] MEDS: Polyethylene Glycol 3350 17 GM PACKET PO (07:40)
[2024-02-20 07:59] VITALS: BP 174/90; RESP 17; TEMP 36.8; O2SAT 98
--- NOTE | 2024-02-20 13:16 | NUR.NOTE ---
Nursing Note: The patient and his called because the patient is having large, watery stools. He was here earlier with the inability to move his bowel. Was given miralax while here. Pt asked if he can take immodium. He was instructed not to do that because we gave him medications to make him go. Instructed to drink lots of water to stay hydrated and that the medication was working as intended. I told them if they became concerned, we would be happy to see them in the ER for re-eval. They are going to give it a little more time and see if the bowel movements slow down, if they become concerned, they will come back to the ED.
== END 2024-02-20 08:51 | disposition home or self-care (01) ==
PROVIDERS: Emergency Provider Student in an Organized Health Care Education/Training Program; PCP Family Medicine
DX: R10.10 Upper abdominal pain, unspecified (principal); K59.00 Constipation, unspecified; I12.9 Hypertensive chronic kidney disease with stage 1 through stage 4 chronic kidney disease, or unspecified chronic kidney disease; N18.30 Chronic kidney disease, stage 3 unspecified; E78.00 Pure hypercholesterolemia, unspecified; Z95.2 Presence of prosthetic heart valve; Z79.82 Long term (current) use of aspirin; Z87.891 Personal history of nicotine dependence
CPT/HCPCS: 36415; 80053; 93005; 96374; 99285; 74177; 83605; 85025; 93010; 99284; J1885; J3490

== ENCOUNTER 2024-03-04 13:25 | Outpatient (CLI) | payer MEDICARE, OTHER, SELFPAY | END 2024-03-04 13:26 | disposition home or self-care (01) | LOC: PUVA 13:28 | PROVIDERS: PCP Family Medicine; Visit Provider Dermatology | DX: L30.8 Other specified dermatitis (principal) | CPT/HCPCS: 96900 ==

== ENCOUNTER → 2024-03-07 10:51 | Outpatient (BNVA) | payer MEDICARE, OTHER, SELFPAY | PROVIDERS: PCP Family Medicine; Referring Provider Family Medicine; Visit Provider Internal Medicine Cardiovascular Disease | DX: Z95.2 Presence of prosthetic heart valve (principal) | CPT/HCPCS: 99213 ==

== ENCOUNTER 2024-03-15 13:52 | Outpatient (CLI) | payer MEDICARE, OTHER, SELFPAY | END 2024-03-15 13:53 | disposition home or self-care (01) | LOC: PUVA 13:52 | PROVIDERS: PCP Family Medicine; Visit Provider Dermatology | DX: L30.8 Other specified dermatitis (principal) | CPT/HCPCS: 96900 ==

== ENCOUNTER 2024-03-22 13:22 | Outpatient (CLI) | payer MEDICARE, OTHER, SELFPAY | END 2024-03-22 13:23 | disposition home or self-care (01) | LOC: PUVA 13:58 | PROVIDERS: PCP Family Medicine; Visit Provider Dermatology | DX: L40.9 Psoriasis, unspecified (principal) | CPT/HCPCS: 96900 ==

== ENCOUNTER → 2024-03-29 14:21 | Outpatient (BNVA) | payer MEDICARE, OTHER, SELFPAY | PROVIDERS: PCP Family Medicine; Referring Provider Family Medicine; Visit Provider Psychiatry & Neurology Neurology | DX: G44.52 New daily persistent headache (NDPH) (principal); R26.89 Other abnormalities of gait and mobility; R42 Dizziness and giddiness; I10 Essential (primary) hypertension; G89.29 Other chronic pain | CPT/HCPCS: 99215 ==

== ENCOUNTER 2024-04-29 00:08 | Outpatient (CLI) | payer MEDICARE, OTHER, SELFPAY ==
--- NOTE | 2024-04-29 08:00 | DI.MRI_ITS ---
Exam(s) MR BRAIN WO EXAM: MR BRAIN WO CLINICAL HISTORY: dizziness and headaches,new,g44.52 TECHNIQUE: Multiplanar multisequence MRI of the brain was performed. COMPARISON: CT CT HEAD SINUS WO from 02/12/2024 FINDINGS: VENTRICLES AND EXTRA AXIAL SPACES: Normal in size and morphology for the patient's age. MIDLINE SHIFT: None. CEREBRAL PARENCHYMA: No focus of restricted diffusion to suggest acute infarct. No space-occupying le aquiles identified. Mild atrophy consistent with the patient's age. Prominent scattered foci of high si gnal in the white matter consistent with sequela of chronic microvascular disease. HEMORRHAGE: No acute hemorrhage. There are few scattered susceptibility weighted artifacts, in the r ight frontal lobe and right posterior parietal lobe, consistent with old petechial microhemorrhage. BRAINSTEM/CEREBELLUM: Normal. VISUALIZED PARANASAL SINUSES/MASTOIDS:Prior sinus surgery. Mild mucosal thickening. Vasculature: Normal flow void. PITUITARY GLAND: Unremarkable. ORBITS: Unremarkable. IMPRESSION: Prominent white matter changes of small vessel disease. No acute abnormality. DATA REPOSITORY:
== END 2024-04-29 00:28 ==
PROVIDERS: PCP Family Medicine; Visit Provider Psychiatry & Neurology Neurology
DX: G44.52 New daily persistent headache (NDPH) (principal)
CPT/HCPCS: 70551

== ENCOUNTER → 2024-05-02 13:03 | Outpatient (BNVA) | payer MEDICARE, OTHER, SELFPAY | PROVIDERS: PCP Family Medicine; Referring Provider Family Medicine; Visit Provider Podiatrist | DX: M79.674 Pain in right toe(s) (principal); M79.675 Pain in left toe(s); L84 Corns and callosities; Z98.890 Other specified postprocedural states; L43.9 Lichen planus, unspecified; I73.89 Other specified peripheral vascular diseases; M20.41 Other hammer toe(s) (acquired), right foot; M20.42 Other hammer toe(s) (acquired), left foot | CPT/HCPCS: 11719 ==

== ENCOUNTER 2024-06-02 09:41 | Emergency (ER) | payer MEDICARE, OTHER, SELFPAY ==
[2024-06-02] VITALS (17 sets, daily range): BP systolic 133–180; BP diastolic 70–90; PULSE 68–83; RESP 14–22; TEMP 36.6–36.9; O2SAT 96–98
--- NOTE | 2024-06-02 09:15 | RT.EKG_ITS ---
APPROVED REPORT Exam: Resting ECG Reason for Exam: Dizziness Patient Location: E HR:77 bpm ECG Measurements Heart Rate 77 AXIS VA 176 P 59 QRSd 78 QRS 44 QT 359 T 61 QTc 408 Conclusion Sinus rhythm...normal P axis, V-rate 60- 99 Left atrial enlargement...P, P'>60mS, <-0.15mV V1
[2024-06-02 10:02] LABS: Abs Immature Grans 0.22 10^3/uL (0.0-0.06); Absolute Basophil Count 0.06 10^3/uL (0.0-0.2); Absolute Eosinophil Count 0.07 10^3/uL (0.0-0.7); Absolute Lymphocyte Count 1.02 10^3/uL (1.2-3.4); Absolute Monocyte Count 1.58 10^3/uL (0.1-0.8); Absolute Neutrophil Count 7.16 10^3/uL (1.2-6.7); Basophils % 0.6 %; Eosinophils % 0.7 %; HCT 46.6 % (40.0-50.0); HGB 15.7 g/dL (13.5-17.5); Immature Grans % 2.2 %; Lymphocytes % 10.1 %; MCH 31.3 pg (27.0-33.0); MCHC 33.7 % (32.0-36.0); MCV 93 fL (80-95); MPV 9.8 fL (8.0-11.0); Monocytes % 15.6 %; Neutrophils % 70.8 %; Platelet Count 118 10^3/uL (130-400); RBC 5.01 10^6/uL (4.36-5.78); RDW 15.1 % (11.8-14.1); RDW-SD 51.6 fL; WBC 10.11 10^3/uL (4.4-10.8)
[2024-06-02 10:23] LABS: ALT 20 U/L (16-63); AST 14 U/L (15-37); Albumin 3.2 g/dL (3.4-5.0); Alkaline Phosphatase 50 U/L (46-116); Anion Gap 5.9 mmol/L (3-11); BUN 40 mg/dL (7-18); Bilirubin, Total 0.51 mg/dL (0.2-1.0); CO2 23.1 mmol/L (21.0-32.0); CREATININE 2.3 mg/dL (0.70-1.30); Calcium 8.7 mg/dL (8.5-10.1); Chloride 103 mmol/L (98-107); Estimated GFR 27.15 (mL/min/1.73m2); Glucose 98 mg/dL (74-106); Potassium 3.9 mmol/L (3.5-5.1); Sodium 132 mmol/L (136-145); TSH (W/Ref FT4) 0.31 uIU/mL (0.36-3.74); Total Protein 5.9 g/dL (6.4-8.2); Troponin I 34 ng/L (<or=76)
--- NOTE | 2024-06-02 10:33 | W.ED.GENAD ---
Discharge Plan Disposition Patient Disposition: Home Condition: Stable Discharge Details Clinical Impression: SARS-CoV-2 positive, Generalized weakness, Benzodiazepine overdose, Chronic hyponatremia, CKD (chronic kidney disease), Thrombocytopenia Primary Care Provider: Umesh Covarrubias ED Provider: Valentino Almodovar Home Meds and New Rx's Prescriptions: New Paxlovid 150-100 mg tablets,dose pack See Rx Instructions .ROUTE .COMPLEX Qty: 20 0RF Rx Instructions: orally per package directions Continued losartan 50 mg tablet 50 mg PO DAILY Qty: 90 3RF Rx Instructions: pt stopped and then restarted this me on his own 10/13/21 cc gabapentin 100 mg capsule 100 mg PO QHS Qty: 30 5RF aspirin 81 mg capsule 81 mg PO DAILY sennosides [senna] 8.6 mg tablet 8.6 mg PO DAILY Qty: 90 1RF lorazepam 1 mg tablet 1 mg PO QHS PRN (Reason: insomnia/back spasms) Qty: 30 2RF albuterol sulfate 2.5 mg /3 mL (0.083 %) solution for nebulization 2.5 mg inhalation Q4H Qty: 540 3RF [place] Saline 0.65 % aerosol,spray 1 spray intranasal Q2H PRN calcium carbonate 500 mg calcium (1,250 mg) tablet,chewable 1,000 mg PO .Every 4 hours PRN polyethylene glycol 3350 [Miralax] 17 gram/dose powder 17 g PO DAILY PRN pantoprazole 40 mg tablet,delayed release (DR/EC) 40 mg PO BID Qty: 180 3RF vitamin B complex Capsule 1 cap PO DAILY Patient Comments: PT not taking coenzyme Q10 [Co Q-10] 100 mg Capsule 300 mg PO DAILY Probiotic 3 billion cell Capsule 3,000 mmu cells PO DAILY Held rosuvastatin 20 mg tablet 20 mg PO DAILY Hold Instructions: Resume on 06/07/24. hold while on paxlovid No Action doxycycline hyclate 100 mg tablet 100 mg PO BID 10 Days Qty: 20 0RF Discharge Instructions Instructions: Preventing falls in adults, Generalized Weakness, COVID-19 ED Additional Instructions: Please only take your lorazepam as prescribed. Last night you accidentally overdosed on this medication. Please only take dose as recommended by your prescribing physician. Your platelet level was low today. Please be sure to call your doctor to discuss this week. You may need follow-up outpatient diagnostic testing. You are COVID-positive. Please allow for plenty of rest and drink plenty of fluid. Maintain home isolation over the next week. Please contact your primary care physician to arrange follow-up. Return to the ER immediately for any worsening or new concerning symptoms. Discharge Data Discharge Date/Time-TO BE ENTERED AT DEPARTURE: 06/02/24 14:55 HPI General Mode of arrival: ambulatory. Date/Time Provider Initiated Documentation: 06/02/24 09:53. Limitations to Documentation: no limitations. Information obtained by: patient and EMS. HPI Narrative: 83-year-old male with multiple medical problems presents with chief complaint of weakness. Patient notes generalized weakness and inability to ambulate this morning. He states last night he was having trouble sleeping and took lorazepam 3 mg. He typically takes 1 mg nightly. He does note chronic low back pain as well as chronic intermittent discomfort in his head described as a fullness. He denies focal weakness or numbness. He does feel fatigued. No fever. No urinary symptoms. He has no respiratory symptoms but his recently tested positive for COVID and has been symptomatic over the past few days. Related Data Home Medications ?Medication ?Instructions ?Recorded ?Confirmed coenzyme Q10 100 mg capsule (Co 300 mg PO DAILY 09/03/19 06/02/24 Q-10) lactobacillus combination no.4 3 3,000 mmu cells PO DAILY 09/03/19 06/02/24 billion cell capsule (Probiotic) vitamin B complex 1 cap PO DAILY 09/03/19 06/02/24 aspirin 81 mg capsule 81 mg PO DAILY 12/05/21 06/02/24 albuterol sulfate 2.5 mg/3 mL 2.5 mg (3 mL) inhalation Q4H #540 04/07/23 06/02/24 (0.083 %) solution for nebulization mL calcium carbonate 1,000 mg PO .Every 4 hours PRN 08/07/23 06/02/24 sodium chloride 0.65 % nasal spray 1 spray intranasal Q2H PRN 08/07/23 06/02/24 aerosol ([place] Saline) rosuvastatin 20 mg tablet 20 mg PO DAILY 10/15/23 06/02/24 polyethylene glycol 3350 17 17 g PO DAILY PRN 12/21/23 06/02/24 gram/dose oral powder (Miralax) pantoprazole 40 mg tablet,delayed 40 mg PO BID #180 tabs 02/08/24 06/02/24 release sennosides 8.6 mg tablet (senna) 8.6 mg PO DAILY #90 tabs 02/22/24 06/02/24 losartan 50 mg tablet 50 mg PO DAILY #90 tabs 03/18/24 06/02/24 gabapentin 100 mg capsule 100 mg PO QHS #30 caps 03/29/24 06/02/24 lorazepam 1 mg tablet 1 mg PO QHS PRN insomnia/back 04/26/24 06/02/24 spasms #30 tabs nirmatrelvir 150 mg-ritonavir 100 See Rx Instructions PO .COMPLEX 06/02/24 mg tablets in a dose pack #20 dose pk (Paxlovid) doxycycline hyclate 100 mg tablet 100 mg PO BID 10 days #20 tabs 06/06/24 Previous Rx's ?Medication ?Instructions ?Recorded albuterol sulfate 2.5 mg/3 mL 2.5 mg (3 mL) inhalation Q4H #540 04/07/23 (0.083 %) solution for nebulization mL pantoprazole 40 mg tablet,delayed 40 mg PO BID #180 tabs 02/08/24 release sennosides 8.6 mg tablet (senna) 8.6 mg PO DAILY #90 tabs 02/22/24 losartan 50 mg tablet 50 mg PO DAILY #90 tabs 03/18/24 gabapentin 100 mg capsule 100 mg PO QHS #30 caps 03/29/24 lorazepam 1 mg tablet 1 mg PO QHS PRN insomnia/back 04/26/24 spasms #30 tabs nirmatrelvir 150 mg-ritonavir 100 See Rx Instructions PO .COMPLEX 06/02/24 mg tablets in a dose pack #20 dose pk (Paxlovid) doxycycline hyclate 100 mg tablet 100 mg PO BID 10 days #20 tabs 06/06/24 Allergies Allergy/AdvReac Type Severity Reaction Status Date / Time metronidazole Allergy Intermediate Skin Rash, Verified 06/02/24 10:49 swelling, itchy sulfamethoxazole (From Allergy turns red Verified 06/02/24 10:49 Bactrim) trimethoprim (From Bactrim) Allergy turns red Verified 06/02/24 10:49 ropinirole AdvReac Severe insomina, Verified 06/02/24 10:49 weakness, intense fatigue zolpidem (From Ambien) AdvReac sleep Verified 06/02/24 10:49 walk General Stated Complaint: Dizzy/Sync ANIBAL: 3 Review of Systems All systems reviewed & are unremarkable except as noted in HPI and below Constitutional Constitutional: Denies fever(s) Neurologic Neurologic: Reports as per HPI Exam Const General: cooperative HENMT Mouth: moist mucous membranes Eyes Visual Heck: normal visual heck by confrontation Alignment and Position: alignment normal Conjunctivae: normal conjunctivae Sclera: normal sclerae Pupils: PERRL and pupil size bilaterally 2 EOM: EOM intact bilaterally Neck Neck: trachea midline Resp Auscultation: clear to auscultation bilaterally, no rales, no rhonchi and no wheezes Cardio Rate: regular rate and not tachycardic Rhythm: regular rhythm GI Palpation: soft, not firm, no guarding, no masses, not rigid and nontender Skin General skin exam: no rashes or lesions noted Neuro General: patient alert, patient awake and tone normal Speech: other (slowed) Motor: strength 5/5 throughout Sensory Exam: no sensory deficits noted Other: Generally slowed responses, seems fatigued Extrem General: no edema Course Vital Signs Vital signs: Vital Signs Temperature 36.6 C 06/02/24 09:46 Pulse 83 06/02/24 09:46 Respiratory Rate 22 06/02/24 09:46 Pulse Oximetry 97 06/02/24 09:46 Temperature 36.6 C 06/02/24 09:46 Temperature Source Oral 06/02/24 09:46 Pulse 73 06/02/24 10:01 Pulse 77 06/02/24 10:01 Respiratory Rate 19 06/02/24 10:16 Respiratory Effort Normal, Non-Labored 06/02/24 10:16 Respiratory Depth Normal 06/02/24 10:16 Respiratory Pattern Normal 06/02/24 10:16 Blood Pressure 138/71 06/02/24 10:01 Blood Pressure Mean 95 06/02/24 10:01 Blood Pressure Position Sitting 06/02/24 09:46 Pulse Oximetry 97 06/02/24 10:01 Oxygen Delivery Method Room Air 06/02/24 09:46 Oxygen Flow Rate 0 06/02/24 09:46 Pain Level 0 06/02/24 09:46 Lab/Test Results Lab/Test Results: Laboratory Tests Range/Units 06/02/24 09:50 WBC (4.4-10.8) 10^3/uL 10.11 RBC (4.36-5.78) 10^6/uL 5.01 Hgb (13.5-17.5) g/dL 15.7 Hct (40.0-50.0) % 46.6 MCV (80-95) fL 93 MCH (27.0-33.0) pg 31.3 MCHC (32.0-36.0) % 33.7 RDW (11.8-14.1) % 15.1 H Plt Count (130-400) 10^3/uL 118 L MPV (8.0-11.0) fL 9.8 Immature Gran % % 2.2 Neutrophils % % 70.8 Lymphocytes % % 10.1 Monocytes % % 15.6 Eosinophils % % 0.7 Basophils % % 0.6 Nucleated RBC % (0.0-0.3) % 0.0 Absolute Neutrophils (1.2-6.7) 10^3/uL 7.16 H Absolute Lymphocytes (1.2-3.4) 10^3/uL 1.02 L Absolute Monocytes (0.1-0.8) 10^3/uL 1.58 H Absolute Eosinophils (0.0-0.7) 10^3/uL 0.07 Absolute Basophils (0.0-0.2) 10^3/uL 0.06 Sodium (136-145) mmol/L 132 L Potassium (3.5-5.1) mmol/L 3.9 Chloride (98-107) mmol/L 103 Carbon Dioxide (21.0-32.0) mmol/L 23.1 Anion Gap (3-11) mmol/L 5.9 BUN (7-18) mg/dL 40 H Creatinine (0.70-1.30) mg/dL 2.3 H Est GFR (CKD-EPI 2020) (mL/min/1.73m2) 27.15 Glucose (74-106) mg/dL 98 Calcium (8.5-10.1) mg/dL 8.7 Magnesium (1.8-2.4) mg/dL 2.0 Total Bilirubin (0.2-1.0) mg/dL 0.51 AST (15-37) U/L 14 L ALT (16-63) U/L 20 Alkaline Phosphatase (46-116) U/L 50 Troponin I (<or=76) ng/L 34 Total Protein (6.4-8.2) g/dL 5.9 L Albumin (3.4-5.0) g/dL 3.2 L TSH (0.36-3.74) uIU/mL 0.31 L Medical Decision Making 1040 --83-year-old male with multiple medical problems presents today with generalized weakness. Patient is hemodynamically stable. No focal deficits on examination. He is generally weak and fatigued. I am concerned about benzodiazepine overdose, accidental. Consider central neurologic process and will obtain CT of the brain. Consider UTI. Screening EKG was reviewed and interpreted by me: Please see report, sinus rhythm 77 bpm, normal axis, nondiagnostic. --Patient is COVID-positive. He has no respiratory symptoms. Patient does have thrombocytopenia. Chronic kidney disease noted with creatinine 2.3. Hyponatremia noted at 132, this is also chronic. --Patient was on the commode and fell to the ground. He landed on his buttock. No injury sustained. 1344 --patient feeling better per nursing. Able to ambulate without assistance. Requesting discharge. Patient agreeable to Paxlovid treatment. I will have him hold his statin while on Paxlovid. Disposition decision was made weighing the risks and benefits of hospitalization versus outpatient treatment, the risk for further decompensation, and the patient's wishes. The patient was stable and requested discharge. Prior to discharge, my usual and customary return precautions were reviewed with the patient - this included follow-up instructions and reason to return to the emergency department if condition worsens, does not improve as expected, or other new concerns arise. Lab Data Lab results reviewed: Yes I reviewed the patient's lab results. Labs: Laboratory Tests Range/Units 06/02/24 06/02/24 06/02/24 09:45 09:50 11:11 WBC (4.4-10.8) 10^3/uL 10.11 RBC (4.36-5.78) 10^6/uL 5.01 Hgb (13.5-17.5) g/dL 15.7 Hct (40.0-50.0) % 46.6 MCV (80-95) fL 93 MCH (27.0-33.0) pg 31.3 MCHC (32.0-36.0) % 33.7 RDW (11.8-14.1) % 15.1 H Plt Count (130-400) 10^3/uL 118 L MPV (8.0-11.0) fL 9.8 Immature Gran % % 2.2 Neutrophils % % 70.8 Lymphocytes % % 10.1 Monocytes % % 15.6 Eosinophils % % 0.7 Basophils % % 0.6 Nucleated RBC % (0.0-0.3) % 0.0 Absolute Neutrophils (1.2-6.7) 10^3/uL 7.16 H Absolute Lymphocytes (1.2-3.4) 10^3/uL 1.02 L Absolute Monocytes (0.1-0.8) 10^3/uL 1.58 H Absolute Eosinophils (0.0-0.7) 10^3/uL 0.07 Absolute Basophils (0.0-0.2) 10^3/uL 0.06 Sodium (136-145) mmol/L 132 L Potassium (3.5-5.1) mmol/L 3.9 Chloride (98-107) mmol/L 103 Carbon Dioxide (21.0-32.0) mmol/L 23.1 Anion Gap (3-11) mmol/L 5.9 BUN (7-18) mg/dL 40 H Creatinine (0.70-1.30) mg/dL 2.3 H Est GFR (CKD-EPI 2020) (mL/min/1.73m2) 27.15 Glucose (74-106) mg/dL 98 Calcium (8.5-10.1) mg/dL 8.7 Magnesium (1.8-2.4) mg/dL 2.0 Total Bilirubin (0.2-1.0) mg/dL 0.51 AST (15-37) U/L 14 L ALT (16-63) U/L 20 Alkaline Phosphatase (46-116) U/L 50 Troponin I (<or=76) ng/L 34 Total Protein (6.4-8.2) g/dL 5.9 L Albumin (3.4-5.0) g/dL 3.2 L TSH (0.36-3.74) uIU/mL 0.31 L Free T4 (0.76-1.46) ng/dL 0.95 Urine Color (Yellow) Yellow Urine Clarity (Clear) Clear Urine pH (5-8) 7.0 Ur Specific [place] (1.005-1.025) 1.020 Urine Protein (Neg-Trace) mg/dL Negative Urine Ketones (Negative) mg/dL Negative Urine Blood (Negative) Negative Urine Nitrite (Negative) Negative Urine Bilirubin (Negative) Negative Urine Urobilinogen (Up to 0.2) mg/dL 0.2 Ur Leukocyte Esterase (Negative) Negative Urine Glucose (Negative) mg/dL Negative Urine Opiates Screen (Negative) Negative Urine Methadone Screen (Negative) Negative Ur Barbiturates Screen (Negative) Negative Ur Tricyclics Screen (Negative) Negative Ur Amphetamines Screen (Negative) Negative U Benzodiazepines Scrn (Negative) Positive A Urine Cocaine Screen (Negative) Negative Ur THC Screen (Negative) Negative COVID-19 Source Nasopharynx SARS-CoV-2 (PCR) (Negative) Positive A Influenza Type A (PCR) (Negative) Negative Influenza Type B (PCR) (Negative) Negative RSV (PCR) (Negative) Negative Quality:SDOH Health Related Social Needs: No Data to Display PFSH All Active Problems (Updated 06/06/24 @ 13:46 by Estefany Mark NP) COVID-19 (Acute) Weakness (Acute) Post covid-19 condition, unspecified (Acute) Thrombocytopenia (Chronic) CKD (chronic kidney disease) (Chronic) Chronic hyponatremia (Acute) Benzodiazepine overdose (Acute) Generalized weakness (Acute) SARS-CoV-2 positive (Acute) Chronic headache (Acute) Orthostatic hypertension (Acute) Chronic rhinitis (Acute) Rib fracture (Acute) Constipation by delayed colonic transit (Acute) BLANCO (dyspnea on exertion) (Acute) Other idiopathic scoliosis, thoracolumbar region (Acute) Acquired hammertoes of both feet (Acute) Nasal congestion (Acute) Pharyngitis (Acute) BPH w urinary obs/LUTS (Acute) Thyroiditis (Acute) Excessive cerumen in both ear canals (Acute) Chronic hyponatremia (Acute) Bronchomalacia (Acute) Stage III chronic kidney disease (Acute) Dx necessary for at-risk foot care with Podiatry Diverticulitis (Chronic) GERD (gastroesophageal reflux disease) (Chronic) HTN (hypertension) (Chronic) Hypercholesterolemia (Acute) Dizziness and giddiness (Acute) Malaise and fatigue (Acute) Cerebrovascular disease (Acute) Aortic valve disorder (Acute) Prostate cancer (Chronic) Diverticular disease of colon (Acute) Iron deficiency anemia (Acute) Depressive disorder (Acute) Headache (Acute) Chronic pansinusitis (Acute) Chronic cough (Acute) White coat syndrome with hypertension (Chronic) Tests in the 120s at home Cough (Acute) per Nikki 02/10/2020 started Breo inhaler 03/02/20 F/U with Dr Jordan, next ov 04/06/20 Hip osteoarthritis (Acute) Obstructive sleep apnea (Chronic ~2017) Moderate-PAP therapy H/O endoscopy (Chronic) 11/2020 Sinusitis, chronic 11/04/21 [place] low grade esophageal ulcer, 2 cm Hiatal Hernia Acute dyspnea (Acute) Insomnia (Chronic) Sleep Clinic. 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) Onychomycosis (Acute 04/23/22) History of hemoptysis (Acute) Stenosis of carotid artery (Acute[place] [facility] [place] Arteriosclerosis of left carotid artery (Acute) 05/22/22 Vascular Eczema (Acute) start narrow band UVB bid at [facility] History of vascular surgery (Chronic) Stenting of L internal carotid artery[place] [facility]av[place] Nail dystrophy (Acute) Corns and callosities (Acute) Left hip pain (Acute) Impacted cerumen, bilateral (Acute) Conductive hearing loss, external ear (Acute) Long-term current use of proton pump inhibitor therapy (Acute) Sacral back pain (Acute) referred to Sp[facility] Clinic per [place] 01/02/23 [facility] [place]openia (Acute) Syncope (Chronic) Syncope (Chronic) Spondylolisthesis at L4-L5 level (Acute) Medical History History of pyloric stenosis as a child Surgical History H/O lumbosacral spine surgery H/O laminectomy (07/17/23) [facility] Bilateral laminectomy, medial facetectomy, foraminotomy L4-5; Posterior instrumentation L4-5; Posterolateral arthrodesis L4-5; Application of local autograft; Application of allograft morselized History of carotid endarterectomy 2020 H/O colonoscopy (~11/04/21) 11/04/21 Dr Tyler History of colon resection H/O aortic valve replacement History of tonsillectomy H/O shoulder surgery H/O hemorrhoidectomy History of hernia repair Family History Father Tuberculosis Mother Breast cancer Heart disease Sister Cancer Heart disease Hypertension Social History Smoking/Tobacco Use Status: Former Tobacco Use Quit Date: 09/07/1964 Pack-years: 42 Tobacco: How many years used: 14 Smoking risk assessment performed?: Yes Alcohol Intake: current Alcohol Intake frequency: holidays/special occasions only Alcohol type: wine and hard liquor Drug use: Never Substance use type: does not use Adopted: No Caregiver/Support person: No Foster care: No Household members: spouse Housing: house Number of Children: 1 Education Level: college Do you need help understanding health information?: Never 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 Pets and animals: No Sexually active: Yes Do you think of yourself as: straight/heterosexual Current gender identity: male What is your relationship status?: How often do you talk on the phone with friends or family?: three or more times per week How often do you get together with friends or relatives?: never How often do you attend hoahaoism or adventist services?: decline to answer Do you belong to any clubs or organized social groups?: no Panel score (0-1 are the most socially isolated patients): 2 What type of physical activity do you participate in: other Details: 2nd Degree Shalini Rodarte Duration: 60-90 minutes/day Frequency: 1-2 times per week Seatbelt use: always Drive intox or ride w/intox skip load driver: No Working smoke detector in home: Yes Carbon monox detector in home: Yes Do you feel safe at home: Yes Do you feel safe in your relationship?: Yes
[2024-06-02 11:01] LABS: Influenza A PCR Negative (Negative); Influenza B PCR Negative (Negative); RSV PCR Negative (Negative)
[2024-06-02 11:03] LABS: FREE T4 0.95 ng/dL (0.76-1.46)
--- NOTE | 2024-06-02 11:05 | DI.CT_ITS ---
Exam(s) CT HEAD WO EXAM: CT HEAD WO CLINICAL HISTORY: altered mentation. TECHNIQUE: Imaging Protocol: Axial computed tomography images with coronal and sagittal reformatted images were created and reviewed COMPARISON: CT CT HEAD SINUS WO from 02/12/2024 FINDINGS: Ventricles and Extra axial spaces: Normal in size and morphology for the patient's age. Hemorrhage: None. Cerebral parenchyma: No evidence of an acute infarct or mass effect. Midline shift: None. Brainstem/Cerebellum: Normal. Calvarium: No acute abnormality. Visualized Paranasal sinuses/Mastoids: There again seen findings of prior sinus surgery. Soft Tissues: Unremarkable. IMPRESSION: No acute intracranial process. RADIATION DOSE DELIVERED: 913.71mGy.cm Total DLP DATA REPOSITORY: All CT scans at this facility are submitted to the National Radiology Data Registry (NRDR) Dose Index Registry (DIR) with the [employer] (A[employer]). RADIATION OPTIMIZATION: All CT scans at this facility use at least one of these dose optimization te chniques: automated exposure control; mA and/or kV adjustment per patient size (includes targeted exa ms where dose is matched to clinical indication); or iterative reconstruction.
[2024-06-02 11:08] LABS: Source Nasopharynx
[2024-06-02 11:09] LABS: COVID-19 PCR Positive (Negative)
[2024-06-02 11:23] LABS: Bilirubin Negative (Negative); Blood Negative (Negative); Clarity Clear (Clear); Glucose Negative (Negative); Ketones Negative (Negative); Leukocyte Esterase Negative (Negative); Nitrite Negative (Negative); Urobilinogen 0.2 mg/dL (Up to 0.2)
[2024-06-02 11:36] LABS: *AMPHETAMINES SCREEN URINE Negative (Negative); *BARBITURATES SCREEN URINE Negative (Negative); *BENZODIAZEPINES SCREEN URINE Positive (Negative); Cannabinoids THC Negative (Negative); Cocaine Screen,Urine Negative (Negative); METHADONE URINE SCREEN Negative (Negative); OPIATES URINE SCREEN Negative (Negative)
[2024-06-02 11:38] LABS: Tricyclic Antidepressants Negative (Negative)
== END 2024-06-02 14:55 | disposition home or self-care (01) ==
PROVIDERS: Emergency Provider Student in an Organized Health Care Education/Training Program; PCP Family Medicine
DX: U07.1 COVID-19 (principal); T42.4X1A Poisoning by benzodiazepines, accidental (unintentional), initial encounter; E87.1 Hypo-osmolality and hyponatremia; D69.6 Thrombocytopenia, unspecified; I12.9 Hypertensive chronic kidney disease with stage 1 through stage 4 chronic kidney disease, or unspecified chronic kidney disease; N18.30 Chronic kidney disease, stage 3 unspecified; Z95.2 Presence of prosthetic heart valve; Z79.82 Long term (current) use of aspirin; Z87.891 Personal history of nicotine dependence; Y92.018 Other place in single-family (private) house as the place of occurrence of the external cause
CPT/HCPCS: 36415; 80053; 80307; 87637; 93005; 99285; 70450; 81003; 83735; 84439; 84443; 84484; 85025; 93010; 99284

== ENCOUNTER 2024-06-06 10:40 | Emergency (ER) | payer MEDICARE, OTHER, SELFPAY ==
[2024-06-06 10:44] VITALS: BP 142/72; PULSE 54; RESP 16; TEMP 36.6; O2SAT 96
--- NOTE | 2024-06-06 11:15 | DI.RAD_ITS ---
Exam(s) XR CHEST 2V PA LATERAL EXAM: XR CHEST 2V PA LATERAL CLINICAL HISTORY: Recent Covid, Weakness TECHNIQUE: 2D digital imaging was performed. Two views. COMPARISON: CR XR RIBS RT W PA LAT CHEST from 02/18/2024 FINDINGS: HEART: Normal size. Aortic valve prosthesis. Aorta: Not dilated. PULMONARY VASCULATURE: Normal. MEDIASTINUM: Unremarkable. LUNGS: Clear. PLEURAL SPACE: No pleural effusion or pneumothorax. BONE:Left shoulder prosthesis. Old right upper rib fracture. Prominent costal cartilage calcifica tion. SOFT TISSUES: Unremarkable. IMPRESSION: No acute abnormality. DATA REPOSITORY: RADIATION DOSE DELIVERED:
--- NOTE | 2024-06-06 11:27 | W.ED.GENAD ---
Discharge Plan Disposition Patient Disposition: Home Condition: Stable Discharge Details Clinical Impression: Post covid-19 condition, unspecified, Weakness, COVID-19 Primary Care Provider: Umesh Covarrubias ED Provider: Estefany Mark Home Meds and New Rx's Prescriptions: New doxycycline hyclate 100 mg tablet 100 mg PO BID 10 Days Qty: 20 0RF Continued rosuvastatin 20 mg tablet 20 mg PO DAILY losartan 50 mg tablet 50 mg PO DAILY Qty: 90 3RF Rx Instructions: pt stopped and then restarted this me on his own 10/13/21 cc gabapentin 100 mg capsule 100 mg PO QHS Qty: 30 5RF aspirin 81 mg capsule 81 mg PO DAILY sennosides [senna] 8.6 mg tablet 8.6 mg PO DAILY Qty: 90 1RF lorazepam 1 mg tablet 1 mg PO QHS PRN (Reason: insomnia/back spasms) Qty: 30 2RF albuterol sulfate 2.5 mg /3 mL (0.083 %) solution for nebulization 2.5 mg inhalation Q4H Qty: 540 3RF Craig Saline 0.65 % aerosol,spray 1 spray intranasal Q2H PRN calcium carbonate 500 mg calcium (1,250 mg) tablet,chewable 1,000 mg PO .Every 4 hours PRN polyethylene glycol 3350 [Miralax] 17 gram/dose powder 17 g PO DAILY PRN pantoprazole 40 mg tablet,delayed release (DR/EC) 40 mg PO BID Qty: 180 3RF Paxlovid 150-100 mg tablets,dose pack See Rx Instructions .ROUTE .COMPLEX Qty: 20 0RF Rx Instructions: orally per package directions vitamin B complex Capsule 1 cap PO DAILY Patient Comments: PT not taking coenzyme Q10 [Co Q-10] 100 mg Capsule 300 mg PO DAILY Probiotic 3 billion cell Capsule 3,000 mmu cells PO DAILY Discharge Instructions Instructions: COVID-19 ED, Fatigue ED Additional Instructions: No evidence of pneumonia at this time however your white blood cell count is elevated we will go ahead and treat you due to the recent COVID infection. Please take the antibiotic twice daily with yogurt or probiotic as directed. Use the albuterol inhaler 1 or 2 puffs every 4-6 hours as needed for shortness of breath. I do suspect that you are having increased weakness and fatigue since you have been still recovering from the recent COVID infection. Follow up with primary care provider in 3-5 days. Return to ED sooner if any worsening or concerns. HPI General Mode of arrival: EMS. Date/Time Provider Initiated Documentation: 06/06/24 10:42. Limitations to Documentation: no limitations. Information obtained by: patient, EMS, RN notes reviewed and old records reviewed. HPI Narrative: 83-year-old male presents to the ER via EMS with a chief complaint of frequent falls over the last week, weakness and dizziness. He was recently diagnosed with COVID last week. He is alert and oriented with no focal neurodeficits noted on exam. He does have a past medical history of CKD, CVA, hyponatremia, generalized weakness. Related Data Home Medications ?Medication ?Instructions ?Recorded ?Confirmed coenzyme Q10 100 mg capsule (Co 300 mg PO DAILY 09/03/19 06/02/24 Q-10) lactobacillus combination no.4 3 3,000 mmu cells PO DAILY 09/03/19 06/02/24 billion cell capsule (Probiotic) vitamin B complex 1 cap PO DAILY 09/03/19 06/02/24 aspirin 81 mg capsule 81 mg PO DAILY 12/05/21 06/02/24 albuterol sulfate 2.5 mg/3 mL 2.5 mg (3 mL) inhalation Q4H #540 04/07/23 06/02/24 (0.083 %) solution for nebulization mL calcium carbonate 1,000 mg PO .Every 4 hours PRN 08/07/23 06/02/24 sodium chloride 0.65 % nasal spray 1 spray intranasal Q2H PRN 08/07/23 06/02/24 aerosol (Craig Saline) rosuvastatin 20 mg tablet 20 mg PO DAILY 10/15/23 06/02/24 polyethylene glycol 3350 17 17 g PO DAILY PRN 12/21/23 06/02/24 gram/dose oral powder (Miralax) pantoprazole 40 mg tablet,delayed 40 mg PO BID #180 tabs 02/08/24 06/02/24 release sennosides 8.6 mg tablet (senna) 8.6 mg PO DAILY #90 tabs 02/22/24 06/02/24 losartan 50 mg tablet 50 mg PO DAILY #90 tabs 03/18/24 06/02/24 gabapentin 100 mg capsule 100 mg PO QHS #30 caps 03/29/24 06/02/24 lorazepam 1 mg tablet 1 mg PO QHS PRN insomnia/back 04/26/24 06/02/24 spasms #30 tabs nirmatrelvir 150 mg-ritonavir 100 See Rx Instructions PO .COMPLEX 06/02/24 mg tablets in a dose pack #20 dose pk (Paxlovid) doxycycline hyclate 100 mg tablet 100 mg PO BID 10 days #20 tabs 06/06/24 Previous Rx's ?Medication ?Instructions ?Recorded albuterol sulfate 2.5 mg/3 mL 2.5 mg (3 mL) inhalation Q4H #540 04/07/23 (0.083 %) solution for nebulization mL pantoprazole 40 mg tablet,delayed 40 mg PO BID #180 tabs 02/08/24 release sennosides 8.6 mg tablet (senna) 8.6 mg PO DAILY #90 tabs 02/22/24 losartan 50 mg tablet 50 mg PO DAILY #90 tabs 03/18/24 gabapentin 100 mg capsule 100 mg PO QHS #30 caps 03/29/24 lorazepam 1 mg tablet 1 mg PO QHS PRN insomnia/back 04/26/24 spasms #30 tabs nirmatrelvir 150 mg-ritonavir 100 See Rx Instructions PO .COMPLEX 06/02/24 mg tablets in a dose pack #20 dose pk (Paxlovid) doxycycline hyclate 100 mg tablet 100 mg PO BID 10 days #20 tabs 06/06/24 Allergies Allergy/AdvReac Type Severity Reaction Status Date / Time metronidazole Allergy Intermediate Skin Rash, Verified 06/02/24 10:49 swelling, itchy sulfamethoxazole (From Allergy turns red Verified 06/02/24 10:49 Bactrim) trimethoprim (From Bactrim) Allergy turns red Verified 06/02/24 10:49 ropinirole AdvReac Severe insomina, Verified 06/02/24 10:49 weakness, intense fatigue zolpidem (From Ambien) AdvReac sleep Verified 06/02/24 10:49 walk General Stated Complaint: Dizzy/Sync ANIBAL: 3 Review of Systems All systems reviewed & are unremarkable except as noted in HPI and below Constitutional Constitutional: Reports as per HPI, Reports fatigue, Reports frequent falls, Reports lethargy and Reports weakness ENT Ears, Nose, Mouth, and Throat: Reports dizziness Respiratory Respiratory: Reports as per HPI, Reports cough and Reports wheezing Neurologic Neurologic: Reports dizziness, Reports frequent falls and Reports weakness Endocrine Endocrine: Reports fatigue Allergic/Immunologic Allergic/Immunologic: Reports wheezing Exam Narrative Exam Narrative: Constitutional: Alert and oriented x3. Appears stated age. Normal body habitus. Head: Normocephalic, no trauma. Eyes: Pupils PERRL, Red reflex noted, EOM's intact. Eyelids symmetrical without lesions, discharge, or swelling. ENT: Bilateral TM's WNL, External ear normal to inspection, no mastoid TTP, swelling, or erythema, Nasal turbinates WNL, no nasal discharge. Normal dentition, Posterior pharynx WNL, no exudate. Chest: RRR, Normal S1, S2, distal pulses intact. Resp: Lungs clear to auscultation bilaterally, no wheezes, rales, or rhonchi. Abdomen: Soft, non-distended, Normoactive bowel sounds all 4 quads. Musculoskeletal: Normal gait, Moves all 4 extremities without difficulty. Skin: No suspicious rashes or lesions. Capillary refill less than 2 sec. Neurologic: Cranial nerves II-XII intact. Alert and oriented x 3. Motor: No deficits noted. Sensory: Intact bilaterally all 4 extremities. Hematologic/Lymphatic: No ecchymosis, no lymphadenopathy. Course Vital Signs Vital signs: Vital Signs Temperature 36.6 C 06/06/24 10:44 Pulse 54 L 06/06/24 10:44 Respiratory Rate 16 06/06/24 10:44 Blood Pressure 142/72 H 06/06/24 10:44 Pulse Oximetry 96 06/06/24 10:44 Temperature 36.6 C 06/06/24 10:44 Temperature Source Oral 06/06/24 10:44 Pulse 54 L 06/06/24 10:44 Respiratory Rate 16 06/06/24 10:44 Blood Pressure 142/72 H 06/06/24 10:44 Pulse Oximetry 96 06/06/24 10:44 Oxygen Delivery Method Room Air 06/06/24 10:44 Oxygen Flow Rate 0 06/06/24 10:44 Medical Decision Making 83-year-old male presents to the ER via EMS with a chief complaint of frequent falls over the last week, weakness and dizziness. He was recently diagnosed with COVID last week. He is alert and oriented with no focal neurodeficits noted on exam. He does have a past medical history of CKD, CVA, hyponatremia, generalized weakness. Workup ordered including CBC CMP troponin, urinalysis, chest x-ray and head CT. 500 cc normal saline bolus. At this time no significant evidence of pneumonia on the chest x-ray however with elevated white count and patient symptoms we will go ahead and treat him with doxycycline. Will give a albuterol inhaler here. CT head within normal limits. I do suspect slight dehydration and post-COVID syndrome. This text was generated using POWation system, please disregard any oddities of phrase or misspellings. Medical Records Medical records reviewed: Yes I reviewed the patient's medical records. Imaging Data Radiologic Study: Imaging: CT Scan Radiologist's impression: EXAM: CT HEAD WO CLINICAL HISTORY: Dizziness, Frequent Falls. TECHNIQUE: Imaging Protocol: Axial computed tomography images with coronal and sagittal reformatted images were created and reviewed COMPARISON: CT CT HEAD WO from 06/02/2024 FINDINGS: Ventricles and Extra axial spaces: Normal in size and morphology for the patient's age. Hemorrhage: None. Cerebral parenchyma: No evidence of acute infarct or mass. Mild atrophy. Moderate white matter changes of small vessel disease. Midline shift: None. Brainstem/Cerebellum: Normal. Calvarium: Normal. Visualized Paranasal sinuses:Clear. Prior sinus surgery. Mastoids: Clear. Soft Tissues: Unremarkable. ORBITS: Unremarkable. PITUITARY: Not enlarged. IMPRESSION: No acute intracranial process. Lab Data Lab results reviewed: Yes I reviewed the patient's lab results. Labs: Laboratory Tests Range/Units 06/06/24 06/06/24 06/06/24 12:30 12:33 13:06 WBC Cancelled 16.91 H RBC Cancelled 5.90 H Hgb Cancelled 18.6 H Hct Cancelled 54.8 H MCV Cancelled 93 MCH Cancelled 31.5 MCHC Cancelled 33.9 RDW Cancelled 15.3 H Plt Count Cancelled 145 MPV Cancelled 10.4 Immature Gran % Cancelled 1.6 Neutrophils % Cancelled 84.8 Band Neutrophils % Cancelled Lymphocytes % Cancelled 7.6 Atypical Lymphs % Cancelled Monocytes % Cancelled 5.7 Eosinophils % Cancelled 0.0 Basophils % Cancelled 0.3 Metamyelocytes % Cancelled Myelocytes % Cancelled Promyelocytes % Cancelled Other Cells % Cancelled Nucleated RBC % Cancelled 0.0 Absolute Neutrophils Cancelled 14.34 H Absolute Lymphocytes Cancelled 1.29 Absolute Monocytes Cancelled 0.96 H Absolute Eosinophils Cancelled 0.00 Absolute Basophils Cancelled 0.05 RBC Morphology Cancelled Polychromasia Cancelled Hypochromasia Cancelled Poikilocytosis Cancelled Basophilic Stippling Cancelled Anisocytosis Cancelled Microcytosis Cancelled Macrocytosis Cancelled Spherocytes Cancelled Tear Drop Cells Cancelled Ovalocytes Cancelled Stomatocytes Cancelled [place] Bodies Cancelled Kit Cells/Echinocytes Cancelled Acanthocytes (Spur) Cancelled Schistocytes Cancelled Sodium (136-145) mmol/L 131 L Potassium (3.5-5.1) mmol/L 4.9 Chloride (98-107) mmol/L 100 Carbon Dioxide (21.0-32.0) mmol/L 19.8 L Anion Gap (3-11) mmol/L 11.2 H BUN (7-18) mg/dL 48 H Creatinine (0.70-1.30) mg/dL 1.9 H Est GFR (CKD-EPI 2020) (mL/min/1.73m2) 34.14 Glucose (74-106) mg/dL 113 H Calcium (8.5-10.1) mg/dL 11.3 H Magnesium (1.8-2.4) mg/dL 2.3 Total Bilirubin (0.2-1.0) mg/dL 0.83 AST (15-37) U/L 17 ALT (16-63) U/L 21 Alkaline Phosphatase (46-116) U/L 62 Troponin I (<or=76) ng/L 22 Total Protein (6.4-8.2) g/dL 7.7 Albumin (3.4-5.0) g/dL 3.9 Urine Color (Yellow) Yellow Urine Clarity (Clear) Clear Urine pH (5-8) 7.0 Ur Specific [place] (1.005-1.025) 1.015 Urine Protein (Neg-Trace) mg/dL Negative Urine Ketones (Negative) mg/dL Negative Urine Blood (Negative) Negative Urine Nitrite (Negative) Negative Urine Bilirubin (Negative) Negative Urine Urobilinogen (Up to 0.2) mg/dL 0.2 Ur Leukocyte Esterase (Negative) Negative Urine Glucose (Negative) mg/dL Negative Quality:SDOH Health Related Social Needs: No Data to Display PFSH All Active Problems (Updated 06/06/24 @ 13:46 by Estefany Mark NP) COVID-19 (Acute) Weakness (Acute) Post covid-19 condition, unspecified (Acute) Thrombocytopenia (Chronic) CKD (chronic kidney disease) (Chronic) Chronic hyponatremia (Acute) Benzodiazepine overdose (Acute) Generalized weakness (Acute) SARS-CoV-2 positive (Acute) Chronic headache (Acute) Orthostatic hypertension (Acute) Chronic rhinitis (Acute) Rib fracture (Acute) Constipation by delayed colonic transit (Acute) BLANCO (dyspnea on exertion) (Acute) Other idiopathic scoliosis, thoracolumbar region (Acute) Acquired hammertoes of both feet (Acute) Nasal congestion (Acute) Pharyngitis (Acute) BPH w urinary obs/LUTS (Acute) Thyroiditis (Acute) Excessive cerumen in both ear canals (Acute) Chronic hyponatremia (Acute) Bronchomalacia (Acute) Stage III chronic kidney disease (Acute) Dx necessary for at-risk foot care with Podiatry Diverticulitis (Chronic) GERD (gastroesophageal reflux disease) (Chronic) HTN (hypertension) (Chronic) Hypercholesterolemia (Acute) Dizziness and giddiness (Acute) Malaise and fatigue (Acute) Cerebrovascular disease (Acute) Aortic valve disorder (Acute) Prostate cancer (Chronic) Diverticular disease of colon (Acute) Iron deficiency anemia (Acute) Depressive disorder (Acute) Headache (Acute) Chronic pansinusitis (Acute) Chronic cough (Acute) White coat syndrome with hypertension (Chronic) Tests in the 120s at home Cough (Acute) per Nikki 02/10/2020 started Breo inhaler 03/02/20 F/U with Dr Jordan, next ov 04/06/20 Hip osteoarthritis (Acute) Obstructive sleep apnea (Chronic ~2017) Moderate-PAP therapy H/O endoscopy (Chronic) 11/2020 Sinusitis, chronic 11/04/21 [place] low grade esophageal ulcer, 2 cm Hiatal Hernia Acute dyspnea (Acute) Insomnia (Chronic) Sleep Clinic. 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) Onychomycosis (Acute 04/23/22) History of hemoptysis (Acute) Stenosis of carotid artery (Acute) [place] [facility] [place] Arteriosclerosis of left carotid artery (Acute) 05/22/22 Vascular Eczema (Acute) start narrow band UVB bid at [facility] History of vascular surgery (Chronic) Stenting of L internal carotid artery, 06/28, [facility] [place] started plavix Nail dystrophy (Acute) Corns and callosities (Acute) Left hip pain (Acute) Impacted cerumen, bilateral (Acute) Conductive hearing loss, external ear (Acute) Long-term current use of proton pump inhibitor therapy (Acute) Sacral back pain (Acute) referred to Spine Clinic per note 01/02/23 [facility] [place] Osteopenia (Acute) Syncope (Chronic) Syncope (Chronic) Spondylolisthesis at L4-L5 level (Acute) Medical History History of pyloric stenosis as a child Surgical History H/O lumbosacral spine surgery H/O laminectomy (07/17/23) [facility] Bilateral laminectomy, medial facetectomy, foraminotomy L4-5; Posterior instrumentation L4-5; Posterolateral arthrodesis L4-5; Application of local autograft; Application of allograft morselized History of carotid endarterectomy 2020 H/O colonoscopy (~11/04/21) 11/04/21 Dr Tyler History of colon resection H/O aortic valve replacement History of tonsillectomy H/O shoulder surgery H/O hemorrhoidectomy History of hernia repair Family History Father Tuberculosis Mother Breast cancer Heart disease Sister Cancer Heart disease Hypertension Social History Smoking/Tobacco Use Status: Former Tobacco Use Quit Date: 09/07/1964 Pack-years: 42 Tobacco: How many years used: 14 Smoking risk assessment performed?: Yes Alcohol Intake: current Alcohol Intake frequency: holidays/special occasions only Alcohol type: wine and hard liquor Drug use: Never Substance use type: does not use Adopted: No Caregiver/Support person: No Foster care: No Household members: spouse Housing: house Number of Children: 1 Education Level: college Do you need help understanding health information?: Never 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 Pets and animals: No Sexually active: Yes Do you think of yourself as: straight/heterosexual Current gender identity: male What is your relationship status?: How often do you talk on the phone with friends or family?: three or more times per week How often do you get together with friends or relatives?: never How often do you attend gnosticist or holiness services?: decline to answer Do you belong to any clubs or organized social groups?: no Panel score (0-1 are the most socially isolated patients): 2 What type of physical activity do you participate in: other Details: 2nd Degree Shalini Rodarte Duration: 60-90 minutes/day Frequency: 1-2 times per week Seatbelt use: always Drive intox 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
--- NOTE | 2024-06-06 12:54 | DI.CT_ITS ---
Exam(s) CT HEAD WO EXAM: CT HEAD WO CLINICAL HISTORY: Dizziness, Frequent Falls. TECHNIQUE: Imaging Protocol: Axial computed tomography images with coronal and sagittal reformatted images were created and reviewed COMPARISON: CT CT HEAD WO from 06/02/2024 FINDINGS: Ventricles and Extra axial spaces: Normal in size and morphology for the patient's age. Hemorrhage: None. Cerebral parenchyma: No evidence of acute infarct or mass. Mild atrophy. Moderate white matter joe nges of small vessel disease. Midline shift: None. Brainstem/Cerebellum: Normal. Calvarium: Normal. Visualized Paranasal sinuses:Clear. Prior sinus surgery. Mastoids: Clear. Soft Tissues: Unremarkable. ORBITS: Unremarkable. PITUITARY: Not enlarged. IMPRESSION: No acute intracranial process. RADIATION DOSE DELIVERED: 878.9mGy.cm Total DLP DATA REPOSITORY: All CT scans at this facility are submitted to the National Radiology Data Registry (NRDR) Dose Index Registry (DIR) with the [employer] (ACR). RADIATION OPTIMIZATION: All CT scans at this facility use at least one of these dose optimization te chniques: automated exposure control; mA and/or kV adjustment per patient size (includes targeted exa ms where dose is matched to clinical indication); or iterative reconstruction.
[2024-06-06 12:58] LABS: ALT 21 U/L (16-63); AST 17 U/L (15-37); Albumin 3.9 g/dL (3.4-5.0); Alkaline Phosphatase 62 U/L (46-116); Anion Gap 11.2 mmol/L (3-11); BUN 48 mg/dL (7-18); Bilirubin, Total 0.83 mg/dL (0.2-1.0); CO2 19.8 mmol/L (21.0-32.0); CREATININE 1.9 mg/dL (0.70-1.30); Calcium 11.3 mg/dL (8.5-10.1); Chloride 100 mmol/L (98-107); Estimated GFR 34.14 (mL/min/1.73m2); Glucose 113 mg/dL (74-106); Magnesium 2.3 mg/dL (1.8-2.4); Potassium 4.9 mmol/L (3.5-5.1); Sodium 131 mmol/L (136-145); Total Protein 7.7 g/dL (6.4-8.2); Troponin I 22 ng/L (<or=76)
[2024-06-06] MEDS: Normal Saline 500 ML IV (13:09)
[2024-06-06 13:11] LABS: Abs Immature Grans 0.27 10^3/uL (0.0-0.06); Absolute Basophil Count 0.05 10^3/uL (0.0-0.2); Absolute Monocyte Count 0.96 10^3/uL (0.1-0.8); Basophils % 0.3 %; HCT 54.8 % (40.0-50.0); HGB 18.6 g/dL (13.5-17.5); Immature Grans % 1.6 %; Lymphocytes % 7.6 %; MCH 31.5 pg (27.0-33.0); MCHC 33.9 % (32.0-36.0); MCV 93 fL (80-95); MPV 10.4 fL (8.0-11.0); Monocytes % 5.7 %; Neutrophils % 84.8 %; Platelet Count 145 10^3/uL (130-400); RDW 15.3 % (11.8-14.1); RDW-SD 52.5 fL; WBC 16.91 10^3/uL (4.4-10.8)
[2024-06-06 13:12] LABS: Absolute Lymphocyte Count 1.29 10^3/uL (1.2-3.4); Absolute Neutrophil Count 14.34 10^3/uL (1.2-6.7)
[2024-06-06 13:14] LABS: Bilirubin Negative (Negative); Blood Negative (Negative); Clarity Clear (Clear); Glucose Negative (Negative); Ketones Negative (Negative); Leukocyte Esterase Negative (Negative); Nitrite Negative (Negative); Specific Gravity 1.015 (1.005-1.025); Urobilinogen 0.2 mg/dL (Up to 0.2)
[2024-06-06] MEDS: Doxycycline Hyclate 100 MG CAP PO (14:29)
[2024-06-06] MEDS: Albuterol HFA 8 GM 60 PUFF INH IH (14:29)
[2024-06-06 14:30] VITALS: RESP 16
== END 2024-06-06 14:28 | disposition home or self-care (01) ==
PROVIDERS: Emergency Provider Registered Nurse Emergency; PCP Family Medicine
DX: U07.1 COVID-19 (principal); R53.1 Weakness; U09.9 Post COVID-19 condition, unspecified; D72.829 Elevated white blood cell count, unspecified; Z79.82 Long term (current) use of aspirin; Z87.891 Personal history of nicotine dependence
CPT/HCPCS: 36415; 80053; 99285; 70450; 71046; 81003; 83735; 84484; 85025; 99284

== ENCOUNTER 2024-06-17 00:33 | Outpatient (CLI) | payer MEDICARE, OTHER, SELFPAY ==
--- NOTE | 2024-06-17 | DI.CT_ITS ---
Exam(s) CT LUMBAR SPINE WO EXAM: CT LUMBAR SPINE WO CLINICAL HISTORY: LUMBAR RADICULOPATHY, CHRONIC, M54.16, ? SPONDYLOLYSIS, S/P FUSION. TECHNIQUE: Imaging Protocol: Axial computed tomography images with coronal and sagittal reformatted images were created and reviewed COMPARISON: CR XR DEXA BONE DENSITY W/WO DAPHNE from 01/16/2023 MR MR LUMBAR SPINE WO from 03/24/[address] ABDOMEN PELVIS W from 02/20/2024 FINDINGS: Bones: The last intervertebral disc space is designated the L5/S1 level for the numbering purpose of this examination. The patient is status post posterior fusion hardware with pedicle screws at the L4-5 level. Laminect radha defect. The vertebral body heights are well maintained. Prominent endplate osteophytes. Significant scleros is in the endplates at the L2-3 level. Alignment is satisfactory. No fracture is seen. T12-L1: No disc herniations or bulges are present. L1-2: Severe loss of disc height, eccentric toward the left. Endplate osteophytes project circumfere ntially. No disc herniations or bulges are present. Severe left neural foraminal narrowing. No si gnificant central canal stenosis. L2-3: Severe loss of disc height. Prominent endplate osteophytes projecting circumferentially. Serenity re bilateral neural foraminal narrowing. [id number] central canal stenosis. No disc herniatio ns or bulges are present. L3-4: Severe loss of disc height eccentric toward the right. Endplate osteophytes projecting circum ferentially. Severe right and moderate left neural foraminal narrowing. Slight central canal stenos is. L4-5: Mild loss of disc height eccentric toward the right. Facet degenerative changes. Posterior f usion hardware. No evidence of disc herniation or significant disc bulging. No central canal stenos is. L5-S1: Severe loss of disc height. Endplate osteophytes projecting circumferentially. Severe bilat eral neural foraminal narrowing. No central canal stenosis. The visualized SI joints and sacrum are well maintained. Soft Tissues: The paraspinal soft tissues are unremarkable. IMPRESSION: Postsurgical changes at L4-5. Severe degenerative disc changes and facet degenerative changes contri buting to multilevel neural foraminal narrowing. [id number] central canal stenosis is present at L2-3. RADIATION DOSE DELIVERED: Total DLP DATA REPOSITORY: All CT scans at this facility are submitted to the National Radiology Data Registry (NRDR) Dose Index Registry (DIR) with the [employer] (ACR). RADIATION OPTIMIZATION: All CT scans at this facility use at least one of these dose optimization te chniques: automated exposure control; mA and/or kV adjustment per patient size (includes targeted exa ms where dose is matched to clinical indication); or iterative reconstruction.
== END 2024-06-17 00:53 ==
LOC: DI 00:33
PROVIDERS: PCP Family Medicine; Visit Provider Orthopaedic Surgery Orthopaedic Surgery of the Spine
DX: M48.062 Spinal stenosis, lumbar region with neurogenic claudication (principal); Z98.890 Other specified postprocedural states
CPT/HCPCS: 72131

== ENCOUNTER 2024-07-05 13:52 | Outpatient (CLI) | payer MEDICARE, OTHER, SELFPAY ==
--- NOTE | 2024-07-05 06:00 | DI.RAD_ITS ---
Exam(s) XR PAIN CLINIC LUMBAR SP 2V EXAM: XR PAIN CLINIC LUMBAR SP 2V CLINICAL HISTORY: DX: Lumbar Spondylosis. TECHNIQUE: Fluoroscopy was provided for the referring physician for guidance with performing pain cl inic injection procedure. COMPARISON: No exams were available for comparison FINDINGS: Please see procedure note for details. Fluoro time: 37.7 seconds RADIATION DOSE DELIVERED: jose Hightower=9.82 mGy
[2024-07-05 14:07] VITALS: BP 121/70; PULSE 78; RESP 18; TEMP 37.3; O2SAT 98
--- NOTE | 2024-07-05 14:26 | PDOC.PAIN_ITS ---
Date of service: 07/05/24 Time of Service: 15:07 Pain Managment Procedure Note Procedure Note Procedure Note: Lumbar Medial Branch Block ? Location: Bilateral Medial Branches ? Levels: L2,3,4,5? (L3-4, L5-S1 FACET) ? 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 Post-procedure Diagnosis:? The same as above ? Sedation: NONE? Estimated blood loss:? less than 2 cc ? Surgeon:? Alvin Gonzalez MD COMMENT: PRE PROCEDURE PAIN SCORE: 8/10 ? Procedure Detail:? The procedure and potential risks were explained to the patient and informed written consent was obtained. The patient was escorted to the procedure room and placed in the prone position. Pillows were utilized for proper positioning and comfort.? Time out was performed in procedure room with nursing staff confirming the patient's identity, procedure to be performed, allergies, and any blood thinning or anti-platelet medications. The patient's lower back was prepped with chlorhexidine and draped in a sterile fashion. Sterile technique was maintained throughout the procedure.? Sterile gloves were used, a face mask was worn, and new single dose vials of all medications were used with the top being swabbed with alcohol and given time to dry prior to withdrawal of medication.? A left AND right-sided oblique fluoroscopic view was obtained, with visualization of the: ?RIGHT and LEFT L2,3,4 and DORSAL RAMUS L5 AT SACRAL ALA ? junction of the transverse process and superior articular process. Lidocaine 1% was used to anesthetize the skin. A 22-gauge Quincke needle was advanced along the superior margin of the transverse process and lateral to the articular process.? It was directed inferiorly and medially so that the tip struck the junction of the base of the transverse process and the superior articular process. The needle was then walked over the superior aspect of the transverse process and advanced slightly along the course of the L2,3,4,5 medial branch nerves. Proper placement was verified in A/P, oblique and lateral views under fluoroscopy. At this location, following negative aspiration, 0.5cc 0.5% bupi vacaine was injected.? The patient tolerated the procedure well and was transported to the recovery area for observation and discharge instructions. Permanent images saved and recorded. Follow-up:? The patient will return in 2 weeks for confirmatory LMBBs if they? meet the criteria from today's procedure lasting for at least 2 hours.? COMMENT:Pain went from 8/10 to 4 /10. Before the patient left patient had greater than 50% pain relief.
[2024-07-05 14:37] VITALS: O2SAT 97
[2024-07-05 14:41] VITALS: O2SAT 97
[2024-07-05 14:50] VITALS: O2SAT 97
[2024-07-05] MEDS: Bupivacaine 0.5% Pres-Free 10 ML VIAL IJ (15:21)
[2024-07-05] MEDS: Nerve Block Tray 1 EACH MC (15:21)
== END 2024-07-05 13:53 | disposition home or self-care (01) ==
LOC: PC 13:52
PROVIDERS: PCP Family Medicine; Visit Provider Anesthesiology Pain Medicine
DX: M54.50 Low back pain, unspecified (principal); M47.817 Spondylosis without myelopathy or radiculopathy, lumbosacral region; M47.816 Spondylosis without myelopathy or radiculopathy, lumbar region
CPT/HCPCS: 00123; 64493; 64494; 72100; J0665

== ENCOUNTER 2024-07-20 14:02 | Outpatient (CLI) | payer MEDICARE, OTHER, SELFPAY ==
--- NOTE | 2024-07-20 14:10 | PDOC.PAIN ---
Date of service: 07/20/24 Time of Service: 15:11 Pain Managment Procedure Note Procedure Note Procedure Note: Location: Bilateral Medial Branches ? Levels: L2,3,4,5? (L3-4, L5-S1 FACET) ? 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 Post-procedure Diagnosis:? The same as above ? Sedation: NONE? Estimated blood loss:? less than 2 cc ? Surgeon:? Alvin Gonzalez MD COMMENT: Patient had? GREATER THAN 80 % relief after the first medial branch block for greater than the duration of the local anesthetic.? PRE PROCEDURE PAIN SCORE: 3/10 ? Procedure Detail:? The procedure and potential risks were explained to the patient and informed written consent was obtained. The patient was escorted to the procedure room and placed in the prone position. Pillows were utilized for proper positioning and comfort.? Time out was performed in procedure room with nursing staff confirming the patient's identity, procedure to be performed, allergies, and any blood thinning or anti-platelet medications. The patient's lower back was prepped with chlorhexidine and draped in a sterile fashion. Sterile technique was maintained throughout the procedure.? Sterile gloves were used, a face mask was worn, and new single dose vials of all medications were used with the top being swabbed with alcohol and given time to dry prior to withdrawal of medication.? A left and right-sided oblique fluoroscopic view was obtained, with visualization of the: ?RIGHT and LEFT L2,3,4 and DORSAL RAMUS L5 AT SACRAL ALA ? junction of the transverse process and superior articular process. Lidocaine 1% was used to anesthetize the skin. A 22-gauge Quincke needle was advanced along the superior margin of the transverse process and lateral to the articular process.? It was directed inferiorly and medially so that the tip struck the junction of the base of the transverse process and the superior articular process. The needle was then walked over the superior aspect of the transverse process and advanced slightly along the course of the L2,3,4,5 medial branch nerves. Proper placement was verified in A/P, oblique and lateral views under fluoroscopy. At this location, following negative aspiration, 0.5cc 2% lidocaine was injected.? The patient tolerated the procedure well and was transported to the recovery area for observation and discharge instructions. Permanent images saved and recorded. Follow-up:?? Will plan to proceed with lumbar medial branch RFA if the patient gets good relief from today's procedure lasting for at least 2 hours. COMMENT:Pain went from 3/10 to 0/10. Before the patient left patient had 80% pain relief.
[2024-07-20 14:19] VITALS: BP 128/83; PULSE 83; RESP 18; TEMP 36.6; O2SAT 98
[2024-07-20 14:43] VITALS: O2SAT 97
[2024-07-20 14:50] VITALS: O2SAT 96
--- NOTE | 2024-07-20 15:03 | DI.RAD_ITS ---
Exam(s) XR PAIN CLINIC LUMBAR SP 2V EXAM: XR PAIN CLINIC LUMBAR SP 2V CLINICAL HISTORY: DX: Lumbar Spondylosis. TECHNIQUE: Fluoroscopy was provided for the referring physician for guidance with performing pain cl inic injection procedure. COMPARISON: No exams were available for comparison FINDINGS: Please see procedure note for details. Fluoro time: 30.7 seconds RADIATION DOSE DELIVERED: jose Hightower=9.65 mGy
[2024-07-20] MEDS: Nerve Block Tray 1 EACH MC (15:11)
[2024-07-20] MEDS: Lidocaine 2% Pres-Free 5 ML VIAL IJ (15:11)
== END 2024-07-20 14:03 | disposition home or self-care (01) ==
LOC: PC 14:02
PROVIDERS: PCP Family Medicine; Visit Provider Anesthesiology Pain Medicine
DX: M54.50 Low back pain, unspecified (principal); M47.817 Spondylosis without myelopathy or radiculopathy, lumbosacral region; M47.816 Spondylosis without myelopathy or radiculopathy, lumbar region
CPT/HCPCS: 00123; 64493; 64494; 72100

== ENCOUNTER → 2024-07-28 14:48 | Outpatient (BNVA) | payer MEDICARE, OTHER, SELFPAY | PROVIDERS: PCP Family Medicine; Visit Provider Psychiatry & Neurology Neurology | DX: R26.89 Other abnormalities of gait and mobility (principal); R42 Dizziness and giddiness; I10 Essential (primary) hypertension; G89.29 Other chronic pain; G44.52 New daily persistent headache (NDPH) | CPT/HCPCS: 99215 ==

== ENCOUNTER 2024-08-10 12:12 | Outpatient (CLI) | payer MEDICARE, OTHER, SELFPAY ==
[2024-08-10] VITALS (17 sets, daily range): BP systolic 133–147; BP diastolic 79–97; PULSE 82–102; RESP 12–25; TEMP 36.8; O2SAT 91–98
--- NOTE | 2024-08-10 13:00 | DI.RAD_ITS ---
Exam(s) XR PAIN CLINIC LUMBAR SP 2V EXAM: XR PAIN CLINIC LUMBAR SP 2V CLINICAL HISTORY: Dx: Lumbar SPondylosis. TECHNIQUE: Fluoroscopy was provided for the referring physician for guidance with performing pain cl inic injection procedure. COMPARISON: No exams were available for comparison FINDINGS: Please see procedure note for details. Fluoro time: 87.3 seconds RADIATION DOSE DELIVERED: Campbellr=28.5 mGy
--- NOTE | 2024-08-10 13:12 | PDOC.PAIN_ITS ---
Date of service: 08/10/24 Time of Service: 14:13 Pain Managment Procedure Note Procedure Note Procedure Note: Lumbar Medial Branch COOLED Radiofrequency Ablation COMMENT: Patient had greater than 80 % relief after 2 medial branch blocks . ? Location: Bilateral L2, L3, and L4 medial Branches and dorsal ramus of L5 (L3-4, and L5-S1 joints) ? Pre-procedure Diagnosis: M47.817 Spondylosis without myelopathy or radiculopathy, lumbosacral region ? Post-procedure Diagnosis:? The same as above ? Sedation:? 1mg of intravenous midazolam was administered. fentanyl 75 mcg? An independent trained observer monitored the patient for the duration of the procedure.? Estimated blood loss:? less than 2 cc ? Surgeon: Alvin Gonzalez MD ? Procedure Detail:? The procedure and potential risks were explained to the patient and informed written consent was obtained. The patient was escorted to the procedure room and placed in the prone position. Pillows were utilized for proper positioning and comfort. Time out was performed in the procedure room with nursing staff confirming the patient's identity, procedure to be performed, allergies, and any blood thinning or anti-platelet medications. The patient's lower back was prepped with ChloraPrep and draped in a sterile fashion.? Sterile technique was maintained throughout the procedure.? Sterile gloves were used, a face mask was worn, and new single dose vials of all medications were used with the top being swabbed with alcohol and given time to dry prior to withdrawal of medication. A left AND right-sided oblique fluoroscopic view was obtained, with visualization of the L3 junction of the transverse process and superior articular process. 2% lidocaine was used to anesthetize the skin. With fluoroscopic guidance, an 17 gauge curved tip 4mm active tip RF cannula was a dvanced to the superior margin of the transverse process and lateral to the superior articular process.? It was directed inferiorly and medially so that the tip struck the junction of the base of the transverse process and the superior articular process. The needle was then slightly advanced along the course of the L2 medial branch nerve. Proper placement was verified with oblique, AP, and lateral fluoroscopic views. Sensory tested with good response less than 1V. Motor testing was performed and was negative at 2V except for expected multifidus activation. A similar procedure was also performed at the ipsilateral L3, L4 medial branch nerves and the dorsal ramus of L5 with negative motor testing at 2V except for expected multifidus activation. One cc of 2% lidocaine was injected through each needle tip to anesthetize the medial branch nerves.? After waiting for the local anesthetic to take effect, each nerve was then ablated at 60 degrees Celsius for 150 seconds.? The patient was monitored for any severe pain or radicular pain during the ablation and reported none. The patient tolerated the procedure well, and was transported to the recovery area for observation and discharge instructions.? Permanent images were saved and recorded. PAIN: PRE PROCEDURE 8/10 POST PROCEDURE 0 /10 Plan: F/U PRN COMMENT: Repeat prn if 6 months relief of 50%
[2024-08-10] MEDS: Midazolam 2 MG/2 ML VIAL IVP (13:27)
[2024-08-10] MEDS: fentaNYL 100 MCG/2 ML VIAL IVP ×3 (13:28→13:50)
[2024-08-10] MEDS: Lactated Ringers 500 ML 80 ML IV (14:20)
[2024-08-10] MEDS: Lidocaine 2% Pres-Free 5 ML VIAL IJ (14:20)
[2024-08-10] MEDS: Nerve Block Tray 1 EACH MC (14:20)
== END 2024-08-10 12:13 | disposition home or self-care (01) ==
LOC: PC 12:12
PROVIDERS: PCP Family Medicine; Visit Provider Anesthesiology Pain Medicine
DX: M54.50 Low back pain, unspecified (principal); M47.817 Spondylosis without myelopathy or radiculopathy, lumbosacral region
CPT/HCPCS: 00123; 64635; 64636; 72100; J2250; J3010

== ENCOUNTER 2024-09-05 15:12 | Outpatient (CLI) | payer MEDICARE, OTHER, SELFPAY ==
--- NOTE | 2024-09-05 14:19 | DI.RAD_ITS ---
Exam(s) XR CHEST 2V PA LATERAL EXAM: XR CHEST 2V PA LATERAL CLINICAL HISTORY: cough, fever, r/o pneumonia R05.9 J06.9 R09.89 Z87.01 URI. TECHNIQUE: 2D digital imaging was performed. COMPARISON: CR XR CHEST 2V PA LATERAL from 06/06/2024 FINDINGS: 2 views: Left shoulder reverse prosthesis noted an evidence of right shoulder probable rotator cuff surgery no haim. Heart size is normal. 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 No mediastinal widening. Lungs are clear. No infiltrates nor pleural effusions. No pulmonary edema. Healed right-sided rib fractures again noted. IMPRESSION: No acute pulmonary findings.Prosthetic aortic valve. No pulmonary edema. No pleural effusions. Oth er findings as above. DATA REPOSITORY: RADIATION DOSE DELIVERED:
== END 2024-09-05 15:32 ==
LOC: DI 15:14
PROVIDERS: PCP Family Medicine; Visit Provider Student in an Organized Health Care Education/Training Program
DX: R09.89 Other specified symptoms and signs involving the circulatory and respiratory systems; Z87.01 Personal history of pneumonia (recurrent); K59.00 Constipation, unspecified
CPT/HCPCS: 80053; 83690; 84145; 87426; 96374; 96375; 99285; 71046; 74177; 83735; 85025; J2270; J2405; J3490

== ENCOUNTER 2024-09-05 15:34 | Emergency (ER) | payer MEDICARE, OTHER, SELFPAY ==
[2024-09-05 15:41] VITALS: BP 111/75; PULSE 90; RESP 20; TEMP 36.6; O2SAT 93
[2024-09-05 15:47] VITALS: BP 111/75; PULSE 90; RESP 20; TEMP 36.6; O2SAT 93
[2024-09-05 16:22] LABS: Abs Immature Grans 0.05 10^3/uL (0.0-0.06); Absolute Basophil Count 0.03 10^3/uL (0.0-0.2); Absolute Eosinophil Count 0.09 10^3/uL (0.0-0.7); Absolute Lymphocyte Count 0.75 10^3/uL (1.2-3.4); Absolute Monocyte Count 0.75 10^3/uL (0.1-0.8); Absolute Neutrophil Count 5.43 10^3/uL (1.2-6.7); Basophils % 0.4 %; Eosinophils % 1.3 %; HCT 42.4 % (40.0-50.0); HGB 14.1 g/dL (13.5-17.5); Immature Grans % 0.7 %; Lymphocytes % 10.6 %; MCH 31.5 pg (27.0-33.0); MCHC 33.3 % (32.0-36.0); MCV 95 fL (80-95); MPV 9.3 fL (8.0-11.0); Monocytes % 10.6 %; Neutrophils % 76.4 %; Platelet Count 154 10^3/uL (130-400); RBC 4.47 10^6/uL (4.36-5.78)
[2024-09-05 16:29] LABS: ALT 23 U/L (16-63); AST 35 U/L (15-37); Albumin 3.8 g/dL (3.4-5.0); Alkaline Phosphatase 50 U/L (46-116); Anion Gap 8.9 mmol/L (3-11); BUN 13 mg/dL (7-18); Bilirubin, Total 0.63 mg/dL (0.2-1.0); CO2 23.1 mmol/L (21.0-32.0); CREATININE 1.7 mg/dL (0.70-1.30); Calcium 8.7 mg/dL (8.5-10.1); Chloride 99 mmol/L (98-107); Estimated GFR 38.78 (mL/min/1.73m2); Glucose 107 mg/dL (74-106); Lipase 21 U/L (<78); Magnesium 1.7 mg/dL (1.8-2.4); Potassium 4.8 mmol/L (3.5-5.1); Sodium 131 mmol/L (136-145); Total Protein 7.1 g/dL (6.4-8.2)
--- NOTE | 2024-09-05 16:31 | W.ED.GENAD ---
Discharge Plan Disposition Patient Disposition: Home Condition: Stable Discharge Details Clinical Impression: Abdominal pain, Constipation Primary Care Provider: Umesh Covarrubias ED Provider: Kassi Gutierrez Home Meds and New Rx's Prescriptions: No Action rosuvastatin 20 mg tablet 20 mg PO DAILY losartan 50 mg tablet 50 mg PO DAILY Qty: 90 3RF Rx Instructions: pt stopped and then restarted this me on his own 10/13/21 cc aspirin 81 mg capsule 81 mg PO DAILY sennosides [senna] 8.6 mg tablet 8.6 mg PO DAILY Qty: 90 1RF lorazepam 1 mg tablet 1 mg PO QHS PRN (Reason: insomnia/back spasms) Qty: 30 2RF [place] Saline 0.65 % aerosol,spray 1 spray intranasal Q2H PRN polyethylene glycol 3350 [Miralax] 17 gram/dose powder 17 g PO DAILY PRN pantoprazole 40 mg tablet,delayed release (DR/EC) 40 mg PO BID Qty: 180 3RF vitamin B complex Capsule 1 cap PO DAILY Patient Comments: PT not taking coenzyme Q10 [Co Q-10] 100 mg Capsule 300 mg PO DAILY Probiotic 3 billion cell Capsule 3,000 mmu cells PO DAILY Discharge Instructions Instructions: Constipation in adults Additional Instructions: Your blood work today was unremarkable for acute process your electrolytes are within normal limits. Your CT scan does not reveal any acute infectious process, but it does show a large stool burden Please start MiraLAX, available [id number], 1 capful mixed in 8 ounces of water. Take this 2-3 times daily until you are having regular, soft bowel movements Please follow-up with your PCP for reevaluation of any ongoing symptoms HPI General Date/Time Provider Initiated Documentation: 09/05/24 15:50. Limitations to Documentation: no limitations. Information obtained by: patient and RN/MD. HPI Narrative: 84-year-old gentleman with past medical history of pain disorder, lumbar back pain, prostate cancer, GARIMA presents for evaluation of right lower quadrant abdominal pain. For the last 5 days he has not been feeling well. He has been having a nonproductive cough. He also reports that he has been having some right sided abdominal pain. Symptoms are worsening. Not associated with any vomiting or diarrhea. He reports normal bowel movements. He localizes the pain to the right side of his abdomen. No exacerbating or relieving factors. States that he has been eating normally. Was evaluated by his doctor today and there was concern for the abdominal pain. His doctor called the emergency department to have him come in for further evaluation and CT imaging. Related Data Home Medications ?Medication ?Instructions ?Recorded ?Confirmed coenzyme Q10 100 mg capsule (Co 300 mg PO DAILY 09/03/19 09/05/24 Q-10) lactobacillus combination no.4 3 3,000 mmu cells PO DAILY 09/03/19 09/05/24 billion cell capsule (Probiotic) vitamin B complex 1 cap PO DAILY 09/03/19 09/05/24 aspirin 81 mg capsule 81 mg PO DAILY 12/05/21 09/05/24 sodium chloride 0.65 % nasal spray 1 spray intranasal Q2H PRN 08/07/23 09/05/24 aerosol ([place] Saline) rosuvastatin 20 mg tablet 20 mg PO DAILY 10/15/23 09/05/24 polyethylene glycol 3350 17 17 g PO DAILY PRN 12/21/23 09/05/24 gram/dose oral powder (Miralax) pantoprazole 40 mg tablet,delayed 40 mg PO BID #180 tabs 02/08/24 09/05/24 release sennosides 8.6 mg tablet (senna) 8.6 mg PO DAILY #90 tabs 02/22/24 09/05/24 losartan 50 mg tablet 50 mg PO DAILY #90 tabs 03/18/24 09/05/24 lorazepam 1 mg tablet 1 mg PO QHS PRN insomnia/back 09/05/24 09/05/24 spasms #30 tabs Previous Rx's ?Medication ?Instructions ?Recorded pantoprazole 40 mg tablet,delayed 40 mg PO BID #180 tabs 02/08/24 release sennosides 8.6 mg tablet (senna) 8.6 mg PO DAILY #90 tabs 02/22/24 losartan 50 mg tablet 50 mg PO DAILY #90 tabs 03/18/24 lorazepam 1 mg tablet 1 mg PO QHS PRN insomnia/back 09/05/24 spasms #30 tabs Allergies Allergy/AdvReac Type Severity Reaction Status Date / Time metronidazole Allergy Intermediate Skin Rash, Verified 09/05/24 14:54 swelling, itchy sulfamethoxazole (From Allergy turns red Verified 09/05/24 15:46 Bactrim) trimethoprim (From Bactrim) Allergy turns red Verified 09/05/24 15:46 ropinirole AdvReac Severe insomina, Verified 09/05/24 15:46 weakness, intense fatigue zolpidem (From Ambien) AdvReac sleep Verified 09/05/24 15:46 walk General Stated Complaint: Abd Prob ANIBAL: 3 Exam Narrative Exam Narrative: Review of Systems: All systems reviewed & are unremarkable except as noted in HPI and below Well-developed, no acute distress NCAT No murmur RRR Unlabored respiratory effort clear bilaterally, cough is coarse Mild abdominal distention and fullness, soft, generalized tenderness, worse in the right middle and lower no focal neurologic deficits Course Vital Signs Vital signs: Vital Signs Temperature 36.6 C 09/05/24 15:41 Pulse 90 09/05/24 15:41 Respiratory Rate 20 09/05/24 15:41 Blood Pressure 111/75 09/05/24 15:41 Pulse Oximetry 93 09/05/24 15:41 Temperature 36.6 C 09/05/24 15:47 Pulse 90 09/05/24 15:47 Respiratory Rate 20 09/05/24 15:47 Blood Pressure 111/75 09/05/24 15:47 Blood Pressure Position Sitting 09/05/24 15:47 Pulse Oximetry 93 09/05/24 15:47 Oxygen Delivery Method Room Air 09/05/24 15:47 Oxygen Flow Rate 0 09/05/24 15:47 Lab/Test Results Lab/Test Results: Laboratory Tests Range/Units 09/05/24 09/05/24 16:05 16:18 WBC Cancelled 7.10 RBC Cancelled 4.47 Hgb Cancelled 14.1 Hct Cancelled 42.4 MCV Cancelled 95 MCH Cancelled 31.5 MCHC Cancelled 33.3 RDW Cancelled 14.0 Plt Count Cancelled 154 MPV Cancelled 9.3 Immature Gran % Cancelled 0.7 Neutrophils % Cancelled 76.4 Band Neutrophils % Cancelled Lymphocytes % Cancelled 10.6 Atypical Lymphs % Cancelled Monocytes % Cancelled 10.6 Eosinophils % Cancelled 1.3 Basophils % Cancelled 0.4 Metamyelocytes % Cancelled Myelocytes % Cancelled Promyelocytes % Cancelled Other Cells % Cancelled Nucleated RBC % Cancelled 0.0 Absolute Neutrophils Cancelled 5.43 Absolute Lymphocytes Cancelled 0.75 L Absolute Monocytes Cancelled 0.75 Absolute Eosinophils Cancelled 0.09 Absolute Basophils Cancelled 0.03 RBC Morphology Cancelled Polychromasia Cancelled Hypochromasia Cancelled Poikilocytosis Cancelled Basophilic Stippling Cancelled Anisocytosis Cancelled Microcytosis Cancelled Macrocytosis Cancelled Spherocytes Cancelled Tear Drop Cells Cancelled Ovalocytes Cancelled Stomatocytes Cancelled [place] Bodies Cancelled [place] Cells/Echinocytes Cancelled Acanthocytes (Spur) Cancelled Schistocytes Cancelled Sodium (136-145) mmol/L 131 L Potassium (3.5-5.1) mmol/L 4.8 Chloride (98-107) mmol/L 99 Carbon Dioxide (21.0-32.0) mmol/L 23.1 Anion Gap (3-11) mmol/L 8.9 BUN (7-18) mg/dL 13 Creatinine (0.70-1.30) mg/dL 1.7 H Est GFR (CKD-EPI 2020) (mL/min/1.73m2) 38.78 Glucose (74-106) mg/dL 107 H Calcium (8.5-10.1) mg/dL 8.7 Magnesium (1.8-2.4) mg/dL 1.7 L Total Bilirubin (0.2-1.0) mg/dL 0.63 AST (15-37) U/L 35 ALT (16-63) U/L 23 Alkaline Phosphatase (46-116) U/L 50 Total Protein (6.4-8.2) g/dL 7.1 Albumin (3.4-5.0) g/dL 3.8 Lipase (<78) U/L 21 Medical Decision Making Emergent evaluation of abdominal pain. Symptoms have been ongoing for the last 5 days and are associated with cough. Patient saw his PCP today was referred to the emergency department for further evaluation of his abdominal pain. He did have a chest x-ray to evaluate for his cough already today. I reviewed the radiology report there is no focal consolidation there. The patient is hemodynamically stable and afebrile. He does have abdominal tenderness on exam. Initial differential includes colitis, appendicitis, muscle strain. Plan for labs, CT imaging of the area. Lab was reviewed. No leukocytosis or anemia. No electrolyte derangement. Renal function is at baseline. Procalcitonin is not elevated. Have a low suspicion for an infectious etiology. A CT scan did not demonstrate any acute abnormality, but did demonstrate a significant stool burden which I suspect is contributing to his symptoms. Have recommended MiraLAX 2-3 times daily until he is having regular soft stools. I recommend close follow-up with his PCP return precautions advised. 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 factors (Acute) Lumbar spondylosis (Acute) Post-laminectomy syndrome (Acute) Poor appetite (Acute) COVID-19 (Acute) Chronic headache (Acute) Orthostatic hypertension (Acute) Chronic rhinitis (Acute) Rib fracture (Acute) Constipation by delayed colonic transit (Acute) BLANCO (dyspnea on exertion) (Acute) Other idiopathic scoliosis, thoracolumbar region (Acute) Acquired hammertoes of both feet (Acute) Nasal congestion (Acute) Pharyngitis (Acute) BPH w urinary obs/LUTS (Acute) Thyroiditis (Acute) Excessive cerumen in both ear canals (Acute) Chronic hyponatremia (Acute) Bronchomalacia (Acute) Stage III chronic kidney disease (Acute) Dx necessary for at-risk foot care with Podiatry Diverticulitis (Chronic) GERD (gastroesophageal reflux disease) (Chronic) HTN (hypertension) (Chronic) Hypercholesterolemia (Acute) Dizziness and giddiness (Acute) Malaise and fatigue (Acute) Cerebrovascular disease (Acute) Aortic valve disorder (Acute) Prostate cancer (Chronic) Diverticular disease of colon (Acute) Iron deficiency anemia (Acute) Depressive disorder (Acute) Headache (Acute) Chronic pansinusitis (Acute) Chronic cough (Acute) White coat syndrome with hypertension (Chronic) Tests in the 120s at home Cough (Acute) per Nikki 02/10/2020 started Breo inhaler 03/02/20 F/U with Dr Jordan, next ov 04/06/20 Hip osteoarthritis (Acute) Obstructive sleep apnea (Chronic ~2017) Moderate-PAP therapy H/O endoscopy (Chronic) 11/2020 Sinusitis, chronic 11/04/21 [place] low grade esophageal ulcer, 2 cm Hiatal Hernia Acute dyspnea (Acute) Insomnia (Chronic) Sleep Clinic. 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) Onychomycosis (Acute 04/23/22) History of hemoptysis (Acute) Stenosis of carotid artery (Acute) 05/22/22 [facility] Vascular Arteriosclerosis of left carotid artery (Acute) 05/22/22 Vascular Eczema (Acute) start narrow band UVB bid at [facility] History of vascular surgery (Chronic) Stenting of L internal carotid artery, 06/28, [facility], started plavix Nail dystrophy (Acute) Corns and callosities (Acute) Left hip pain (Acute) Impacted cerumen, bilateral (Acute) Conductive hearing loss, external ear (Acute) Long-term current use of proton pump inhibitor therapy (Acute) Sacral back pain (Acute) referred to Spine Clinic per note 01/02/23 [facility] Osteopenia (Acute) Syncope (Chronic) Syncope (Chronic) Spondylolisthesis at L4-L5 level (Acute) Medical History History of pyloric stenosis as a child Surgical History H/O lumbosacral spine surgery H/O laminectomy (07/17/23) [facility] Bilateral laminectomy, medial facetectomy, foraminotomy L4-5; Posterior instrumentation L4-5; Posterolateral arthrodesis L4-5; Application of local autograft; Application of allograft morselized History of carotid endarterectomy 2020 H/O colonoscopy (~11/04/21) 11/04/21 Dr Tyler History of colon resection H/O aortic valve replacement History of tonsillectomy H/O shoulder surgery H/O hemorrhoidectomy History of hernia repair Family History Father Tuberculosis Mother Breast cancer Heart disease Sister Cancer Heart disease Hypertension Social History Smoking/Tobacco Use Status: Former Tobacco Use Quit Date: 09/07/1964 Pack-years: 42 Tobacco: How many years used: 14 Smoking risk assessment performed?: Yes Alcohol Intake: current Alcohol Intake frequency: holidays/special occasions only Alcohol type: wine Drug use: Never Substance use type: does not use Adopted: No Caregiver/Support person: No Foster care: No Household members: spouse Housing: house Number of Children: 1 Education Level: college Do you need help understanding health information?: Never 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 Pets and animals: No Sexually active: Yes Do you think of yourself as: straight/heterosexual Current gender identity: male What is your relationship status?: How often do you talk on the phone with friends or family?: three or more times per week How often do you get together with friends or relatives?: never How often do you attend episcopal or latter day services?: decline to answer Do you belong to any clubs or organized social groups?: no Panel score (0-1 are the most socially isolated patients): 2 What type of physical activity do you participate in: other Details: 2nd Degree CopywriterShalini Bhardwaj Duration: 60-90 minutes/day Frequency: 1-2 times per week Seatbelt use: always Drive intox or ride w/intox operator and truck driver: No Working smoke detector in home: Yes Carbon monox detector in home: Yes Do you feel safe at home: Yes Do you feel safe in your relationship?: Yes PAWSS Have you Been Recently Intoxicated or Drunk Within the Last 30 days?: No Have you Ever Experienced Previous Episodes of Alcohol Withdrawal?: No Have you ever Experienced Withdrawal Seizures?: No Have you ever Experienced Delirium Tremens(DT)s?: No Have you ever undergone Alcohol Rehabilitation Treatment (i.e, inpt ot outpatient treatment programs)?: No Have you ever Experienced Blackouts?: No Have you ever Combined Alcohol with other Downers within the last 90 days?: No Have you ever Combined Alcohol with any other Substance of Abuse during the last 90 days?: No Positive Blood Alcohol level on Presentation? [PCS.BAL]: No Evidence of Increased Autonomic Activity (i.e. HR>120, tremor, sweating, agitation, nausea)?: No Result: 0
[2024-09-05] MEDS: MORPHine 4 MG/ML SYR IVP (16:39)
[2024-09-05] MEDS: Ondansetron 4 MG/2 ML VIAL IVP (16:39)
[2024-09-05 16:43] LABS: Procalcitonin < 0.10 ng/mL
--- NOTE | 2024-09-05 17:14 | DI.CT_ITS ---
Exam(s) CT ABDOMEN PELVIS W EXAM: CT ABDOMEN PELVIS W CLINICAL HISTORY: abdominal pain. TECHNIQUE: Imaging Protocol: Axial computed tomography images with coronal and sagittal reformatted images were created and reviewed CONTRAST MATERIAL: Intravenous: Omnipaque 350 Contrast volume:75 ml Oral: no COMPARISON: CT CT ABDOMEN PELVIS W from 02/20/2024 FINDINGS: ABDOMEN and PELVIS: Lung Bases: No acute findings. Small hiatal hernia. Liver: Normal density. No suspicious mass. Gallbladder and biliary tract: No radiodense calculus. Question of sludge. No wall thickening or pe richolecystic fluid. No biliary dilation. Pancreas: Normal density. No abnormal calcifications or inflammatory process. No evidence of mass. Spleen: Normal. Kidneys: Normal size, contour and axis. No radiodense stones. No obstructive uropathy. No suspicious masses seen. Stable mild perinephric stranding. Adrenal glands: No masses seen. Vasculature: Abdominal aorta non-dilated. Soft tissues: No change in fat containing umbilical hernia. Bladder: No gross wall thickening. No calculi.No focal mass. Bowel: No obstruction. No bowel wall thickening. Appendix normal. Rectosigmoid anastomosis appears intact. Mild descending and sigmoid diverticulosis. No evidence of diverticulitis. Increased saw tity of stool seen in the cecum through splenic flexure. Peritoneal cavity: No ascites. No focal collection. No mesenteric inflammatory response. No free air . Bones: Degenerative and postsurgical changes. Reproductive organs: Prostate slightly enlarged. Lymph nodes: No pathologically enlarged lymph nodes. IMPRESSION:: No acute abnormality in the abdomen or pelvis. Increased stool noted from cecum through splenic flexure. Findings are consistent with constipation. Gallbladder sludge without evidence of acute cholecystitis. RADIATION DOSE DELIVERED: Total DLP DATA REPOSITORY: All CT scans at this facility are submitted to the National Radiology Data Registry (NRDR) Dose Index Registry (DIR) with the [employer] (ACR). RADIATION OPTIMIZATION: All CT scans at this facility use at least one of these dose optimization te chniques: automated exposure control; mA and/or kV adjustment per patient size (includes targeted exa ms where dose is matched to clinical indication); or iterative reconstruction.
[2024-09-05] MEDS: Normal Saline - Diluent 50 ML VIAL IJ (17:16)
[2024-09-05] MEDS: Omnipaque 350 MG/ML 100 ML BTL 75 ML IJ (17:16)
[2024-09-05 17:19] VITALS: BP 142/74; PULSE 81
[2024-09-05 17:45] VITALS: BP 140/73; PULSE 87; RESP 18; O2SAT 93
== END 2024-09-05 17:45 | disposition home or self-care (01) ==
PROVIDERS: Emergency Provider Emergency Medicine; PCP Family Medicine
DX: R10.31 Right lower quadrant pain (principal); K59.00 Constipation, unspecified; I12.9 Hypertensive chronic kidney disease with stage 1 through stage 4 chronic kidney disease, or unspecified chronic kidney disease; N18.30 Chronic kidney disease, stage 3 unspecified; Z87.891 Personal history of nicotine dependence; Z79.82 Long term (current) use of aspirin
CPT/HCPCS: 80053; 83690; 84145; 87426; 96374; 96375; 99285; 74177; 83735; 85025; J2270; J2405; J3490

== ENCOUNTER → 2024-10-03 13:45 | Outpatient (BNVA) | payer MEDICARE, OTHER, SELFPAY | PROVIDERS: PCP Family Medicine; Referring Provider Family Medicine; Visit Provider Podiatrist | DX: M79.672 Pain in left foot (principal); L97.512 Non-pressure chronic ulcer of other part of right foot with fat layer exposed; L84 Corns and callosities; L60.3 Nail dystrophy; Z98.890 Other specified postprocedural states; L43.9 Lichen planus, unspecified; I73.89 Other specified peripheral vascular diseases; M20.41 Other hammer toe(s) (acquired), right foot; M20.42 Other hammer toe(s) (acquired), left foot; N18.30 Chronic kidney disease, stage 3 unspecified; D50.9 Iron deficiency anemia, unspecified; L65.9 Nonscarring hair loss, unspecified; R20.8 Other disturbances of skin sensation; R23.8 Other skin changes; L60.2 Onychogryphosis; L85.8 Other specified epidermal thickening | CPT/HCPCS: 11055; 11719; 11720 ==

== ENCOUNTER 2024-10-03 15:40 | Outpatient (CLI) | payer MEDICARE, OTHER, SELFPAY ==
--- NOTE | 2024-10-03 15:55 | DI.RAD_ITS ---
Exam(s) XR TOE RT FIFTH EXAM: XR TOE RT FIFTH CLINICAL HISTORY: L97.512. Ulcer medial aspect right fifth toe. TECHNIQUE: 2D digital imaging was performed. COMPARISON: No exams were available for comparison FINDINGS: No evidence of acute fracture or dislocation. However,h there is advanced degenerative change in the metatarsophalangeal joint of the 5th toe. Similar findings are not evident in the MTP joints of the adjacent 3rd and 4th toes. An hammertoe deformities are noted in the 3rd and 4th toes. No evidence of osteomyelitis. IMPRESSION: Severe degenerative changes in the 5th toe metatarsophalangeal joint. No obvious fracture. No radio graphic evidence of osteomyelitis. DATA REPOSITORY: RADIATION DOSE DELIVERED:
--- NOTE | 2024-10-03 15:55 | DI.RAD_ITS ---
Exam(s) XR FOOT RT COMPLETE EXAM: XR FOOT RT COMPLETE CLINICAL HISTORY: M79.671 Pain rt foot. TECHNIQUE: 2D digital imaging was performed. COMPARISON: CR XR FOOT LT COMPLETE from 01/04/2024 FINDINGS: 3 views No evidence of acute fracture nor diastasis of the Lisfranc joint. There are moderate degenerative changes in the great toe metatarsophalangeal joint and there are adva nced degenerative changes in the metatarsophalangeal joint of the 5th toe. Also some degenerative ch anges noted at in the interphalangeal joints of the great toe, 2nd, 3rd and 4th toes; less so in the 5th toe. The metatarsophalangeal joints of the 2nd, 3rd, and 4th toes appear unremarkable. There ar e multi level hammertoe deformities in the 2nd, 3rd, and 4th toes. There is some vascular calcification noted in the dorsalis pedis artery on the dorsal aspect of the p roximal foot. Also in the posterior tibial artery at the ankle level. IMPRESSION: Advanced degenerative changes in the metatarsophalangeal joint of the 5th toe and moderate degenerati ve changes in the metatarsophalangeal joint of the great toe. Other findings as above. DATA REPOSITORY: RADIATION DOSE DELIVERED:
--- NOTE | 2024-10-03 16:24 | DI.VRAD_ITS ---
PROCEDURE INFORMATION: Exam: XR Right Toe(s) Exam date and time: 10/03/2024 3:34 PM Age: 84 years old Clinical indication: Pain; Toes; Right TECHNIQUE: Imaging protocol: Radiologic exam of the right toes. Views: Minimum 2 views. COMPARISON: CR XR FOOT RT COMPLETE 10/03/2024 3:31 PM FINDINGS: Bones/joints: Moderate to severe degenerative changes of the distal and proximal interphalangeal joints of the right 4th toe. Hammertoe deformities present the level of the 3rd, 4th and 5th toes. Severe erosive degenerative changes of the metatarsophalangeal joint of the right 5th toe. Bone mineralization is age-appropriate. There is no evidence of fracture. No evidence of dislocation. Soft tissues: No radiopaque foreign body present. There is soft tissue swelling present at the distal right foot. Other findings: Vascular calcifications consistent with atherosclerotic peripheral vascular disease, renal vascular disease and or diabetes. IMPRESSION: 1. Severe erosive degenerative changes of the metatarsophalangeal joint of the right 5th toe. 2. No acute osseous abnormality. 3. Chronic degenerative changes of the right foot. 4. Moderate to severe degenerative changes of the distal and proximal interphalangeal joints of the right 4th toe. 5. Hammertoe deformities present the level of the 3rd, 4th and 5th toes. 6. There is soft tissue swelling present at the distal right foot. Dictated and Authenticated by: Mike Castaneda MD. Ordering:HARVINDER Tucker MD
--- NOTE | 2024-10-03 16:42 | DI.VRAD_ITS ---
PROCEDURE INFORMATION: Exam: XR Right Foot Exam date and time: 10/03/2024 3:31 PM Age: 84 years old Clinical indication: Pain; Foot; Right TECHNIQUE: Imaging protocol: Radiologic exam of the right foot. Views: 3 or more views. COMPARISON: CR XR FOOT RT COMPLETE 01/04/2024 2:23 PM FINDINGS: Bones/joints: There are [id number] degenerative changes of the distal and proximal interphalangeal joints and the 1st, 2nd, 3rd and 4th toes. There is severe degenerative change with erosion of the 5th tarsal metatarsal joint. There are hammertoe deformities of the 2nd through 5th toes. No evidence of fracture dislocation. There is a tiny noninflamed plantar enthesophyte. Bone mineralization is age-appropriate. There is no evidence of fracture. No evidence of dislocation. Soft tissues: No radiopaque foreign body present. There is mild soft tissue swelling present. Other findings: Vascular calcification consistent with atherosclerotic peripheral vascular disease, renovascular disease and/or diabetes. IMPRESSION: 1. There are [id number] degenerative changes of the distal and proximal interphalangeal joints and the 1st, 2nd, 3rd and 4th toes. 2. There is severe degenerative change with erosion of the 5th tarsal metatarsal joint. 3. There are hammertoe deformities of the 2nd through 5th toes. 4. There is mild soft tissue swelling present. Dictated and Authenticated by: Mike Castaneda MD. Ordering:HARVINDER Tucker MD
== END 2024-10-03 16:00 ==
PROVIDERS: PCP Family Medicine; Visit Provider Podiatrist
DX: L97.512 Non-pressure chronic ulcer of other part of right foot with fat layer exposed (principal); M19.071 Primary osteoarthritis, right ankle and foot
CPT/HCPCS: 11055; 11719; 11720; 73630; 73660

== ENCOUNTER 2024-10-04 15:09 | Outpatient (CLI) | payer MEDICARE, OTHER, SELFPAY ==
--- NOTE | 2024-10-04 06:00 | DI.RAD_ITS ---
Exam(s) XR PAIN CLINIC LUMBAR SP 2V EXAM: XR PAIN CLINIC LUMBAR SP 2V CLINICAL HISTORY: DX: Lumbar Spondylosis TECHNIQUE: 2D and realtime digital imaging was performed. Radiologist not present. CONTRAST MATERIAL: None. COMPARISON: No exams were available for comparison FINDINGS: Fluoroscopy was provided for pain management therapy. Lumbar facet joint therapeutic injections. Please refer to procedure report or details. Radiation Exposure Index: Ka,r=17.21 mGy IMPRESSION: As above. RADIATION DOSE DELIVERED:
[2024-10-04 14:03] VITALS: BP 151/86; PULSE 68; RESP 20; TEMP 36.6; O2SAT 97
--- NOTE | 2024-10-04 14:16 | PDOC.PAIN ---
Date of service: 10/04/24 Time of Service: 14:41 Pain Managment Procedure Note Procedure Note Procedure Note: Diagnostic Lumbar Facet Joint Injection ? Location: Bilateral Lumbar Facet Joints ? Levels: L3-4, L5-S1 ? 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 Post-procedure Diagnosis:? The same as above ? Sedation:? None ? Estimated blood loss:? less than 2 cc ? Surgeon: Alvin Gonzalez MD COMMENT: Patient is fused at L4?5. He has good relief from the medial branch blocks but no relief from the radiofrequency ablation..Decision was made to proceed with intra-articular facet injections. If patient get long lasting relief (> 3 months) would repeat as needed. ? Procedure Detail:? The procedure and potential risks were explained to the patient and informed written consent was obtained. The patient was escorted to the procedure room and placed in the prone position. Pillows were utilized for proper positioning and comfort.? Time out was performed in the procedure room with nursing staff confirming the patient's identity, procedure to be performed, allergies, and any blood thinning or anti-platelet medications.? Sterile technique was maintained throughout the procedure.? The patient's lumbosacral area was prepped with chlorhexidine and draped in a sterile fashion. Lidocaine 1% was used to anesthetize the skin. An oblique fluoroscopic view was obtained, with visualization of the facet joint.? A 22gauge, Quincke needle was gently advanced through the facet capsule.? Needle placement was confirmed with fluoroscopy in AP, oblique, and lateral views by injecting 0.25cc of contrast.? 20 mg of Depomedrol and 0.5ml of 0.5% bupivacaine was injected into the capsule at L3-4 Bilateral. This was repeat at L5-S1 Bilateral? The patient tolerated the procedure well and was transported to recovery area for observation and discharge instructions. Permanent images saved and recorded. Plan:? Follow up prn COMMENT:Pain went from 8 /10 to 0/10. Pain? 100 % better. This does not help and give long-lasting relief and would consider just medical management. Butrans patch did not help but he had no untoward effects so possibly low-dose Suboxone work. Will follow-up in the office if needed
[2024-10-04 14:40] VITALS: PULSE 76; O2SAT 97
[2024-10-04] MEDS: Nerve Block Tray 1 EACH MC (14:48)
[2024-10-04] MEDS: Omnipaque 240 MG/ML 50 ML BTL IJ (14:48)
[2024-10-04] MEDS: Bupivacaine 0.5% Pres-Free 10 ML VIAL IJ (14:50)
[2024-10-04] MEDS: methylPREDNISolone ACETATE 80 MG/ML VIAL IJ (14:51)
== END 2024-10-04 15:10 | disposition home or self-care (01) ==
PROVIDERS: PCP Family Medicine; Visit Provider Anesthesiology Pain Medicine
DX: M54.50 Low back pain, unspecified (principal); M47.817 Spondylosis without myelopathy or radiculopathy, lumbosacral region; M47.816 Spondylosis without myelopathy or radiculopathy, lumbar region
CPT/HCPCS: 00123; 64493; 64494; 72100; J0665; J1010; Q9967

== ENCOUNTER → 2024-10-10 15:30 | Outpatient (BNVA) | payer MEDICARE, OTHER, SELFPAY | PROVIDERS: PCP Family Medicine; Visit Provider Psychiatry & Neurology Neurology | DX: R41.3 Other amnesia (principal); R26.89 Other abnormalities of gait and mobility; R42 Dizziness and giddiness; I10 Essential (primary) hypertension; G89.29 Other chronic pain; G44.52 New daily persistent headache (NDPH) | CPT/HCPCS: 99215 ==

== ENCOUNTER → 2024-10-26 13:15 | Outpatient (BNVA) | payer MEDICARE, OTHER, SELFPAY | PROVIDERS: PCP Family Medicine; Referring Provider Family Medicine; Visit Provider Podiatrist | DX: M79.672 Pain in left foot (principal); L97.512 Non-pressure chronic ulcer of other part of right foot with fat layer exposed; L84 Corns and callosities; L60.3 Nail dystrophy; Z98.890 Other specified postprocedural states; L43.9 Lichen planus, unspecified; I73.89 Other specified peripheral vascular diseases; M20.41 Other hammer toe(s) (acquired), right foot; M20.42 Other hammer toe(s) (acquired), left foot; N18.30 Chronic kidney disease, stage 3 unspecified; D50.9 Iron deficiency anemia, unspecified | CPT/HCPCS: 99213 ==

== ENCOUNTER → 2024-11-18 14:09 | Outpatient (BNVA) | payer MEDICARE, OTHER, SELFPAY | PROVIDERS: PCP Family Medicine; Referring Provider Family Medicine; Visit Provider Internal Medicine Cardiovascular Disease | DX: Z95.2 Presence of prosthetic heart valve (principal); Z98.890 Other specified postprocedural states | CPT/HCPCS: 99213 ==

== ENCOUNTER 2024-11-23 14:32 | Outpatient (CLI) | payer MEDICARE, OTHER, SELFPAY ==
[2024-11-23 15:37] LABS: Vitamin B12 817 pg/mL (193-986)
== END 2024-11-23 14:33 | disposition home or self-care (01) ==
LOC: LBO 14:38
PROVIDERS: PCP Family Medicine; Visit Provider Psychiatry & Neurology Neurology
DX: R41.3 Other amnesia (principal)
CPT/HCPCS: 36415; 82607

== ENCOUNTER → 2024-12-14 14:27 | Outpatient (BNVA) | payer MEDICARE, OTHER, SELFPAY | PROVIDERS: PCP Family Medicine; Referring Provider Family Medicine; Visit Provider Podiatrist | DX: L60.3 Nail dystrophy (principal); M79.672 Pain in left foot; N18.30 Chronic kidney disease, stage 3 unspecified; L43.9 Lichen planus, unspecified; I73.89 Other specified peripheral vascular diseases; L84 Corns and callosities; Z98.890 Other specified postprocedural states; R09.89 Other specified symptoms and signs involving the circulatory and respiratory systems; L65.9 Nonscarring hair loss, unspecified; R20.8 Other disturbances of skin sensation; R23.8 Other skin changes; L85.8 Other specified epidermal thickening | CPT/HCPCS: 11055; 11719; 11720 ==

== ENCOUNTER → 2025-01-16 12:44 | Outpatient (BNVA) | payer MEDICARE, OTHER, SELFPAY | PROVIDERS: PCP Family Medicine; Visit Provider Psychiatry & Neurology Neurology | DX: R26.89 Other abnormalities of gait and mobility (principal); G44.52 New daily persistent headache (NDPH); R42 Dizziness and giddiness; I10 Essential (primary) hypertension; G89.29 Other chronic pain; R41.3 Other amnesia | CPT/HCPCS: 99214 ==

== ENCOUNTER 2025-01-19 14:12 | Outpatient (CLI) | payer MEDICARE, OTHER, SELFPAY ==
--- NOTE | 2025-01-19 14:15 | RT.EKG_ITS ---
APPROVED REPORT Exam: Resting ECG Reason for Exam: pre op clearance Patient Location: O HR:64 bpm ECG Measurements Heart Rate 64 AXIS ND 183 P 0 QRSd 78 QRS 40 QT 393 T 53 QTc 406 Conclusion Sinus rhythm...normal P axis, V-rate 50- 99 Normal Electrocardiogram
== END 2025-01-19 14:13 | disposition home or self-care (01) ==
PROVIDERS: PCP Family Medicine; Visit Provider Internal Medicine Cardiovascular Disease
DX: Z01.810 Encounter for preprocedural cardiovascular examination (principal)
CPT/HCPCS: 93005; 93010

== ENCOUNTER 2025-01-27 19:08 | Outpatient (CLI) | payer MEDICARE, OTHER, SELFPAY ==
[2025-01-27 16:10] LABS: HCT 48.5 % (40.0-50.0); HGB 15.8 g/dL (13.5-17.5); MCH 31.8 pg (27.0-33.0); MCHC 32.6 % (32.0-36.0); MCV 98 fL (80-95); MPV 10.1 fL (8.0-11.0); Platelet Count 163 10^3/uL (130-400); RBC 4.97 10^6/uL (4.36-5.78); RDW 14.3 % (11.8-14.1); RDW-SD 51.8 fL; WBC 9.68 10^3/uL (4.4-10.8)
[2025-01-27 16:57] LABS: ALT 19 U/L (16-63); AST 20 U/L (15-37); Albumin 3.9 g/dL (3.4-5.0); Alkaline Phosphatase 53 U/L (46-116); Anion Gap 8.8 mmol/L (3-11); BUN 24 mg/dL (7-18); Bilirubin, Total 0.6 mg/dL (0.2-1.0); CO2 23.2 mmol/L (21.0-32.0); CREATININE 1.8 mg/dL (0.70-1.30); Calcium 9.6 mg/dL (8.5-10.1); Chloride 107 mmol/L (98-107); Estimated GFR 36.21 (mL/min/1.73m2); Glucose 86 mg/dL (74-106); Potassium 4.7 mmol/L (3.5-5.1); Sodium 139 mmol/L (136-145); Total Protein 6.5 g/dL (6.4-8.2)
== END 2025-01-27 19:09 | disposition home or self-care (01) ==
LOC: LBO 19:10
PROVIDERS: PCP Family Medicine; Visit Provider Family Medicine
DX: Z01.818 Encounter for other preprocedural examination (principal)
CPT/HCPCS: 36415; 80053; 85027

== ENCOUNTER 2025-01-28 21:55 | Emergency (ER) | payer MEDICARE, OTHER, SELFPAY ==
[2025-01-28] VITALS (24 sets, daily range): BP systolic 91–130; BP diastolic 39–57; PULSE 61–73; RESP 9–21; TEMP 36.9; O2SAT 93–96
--- NOTE | 2025-01-28 21:45 | RT.EKG_ITS ---
APPROVED REPORT Exam: Resting ECG Reason for Exam: chest pain Patient Location: E HR:73 bpm ECG Measurements Heart Rate 73 AXIS OR 187 P 57 QRSd 88 QRS 47 QT 376 T 67 QTc 413 Conclusion Sinus rhythm...normal P axis, V-rate 60- 99 Probable left atrial enlargement...P >50mS, <-0.10mV V1 I have reviewed and interpreted ECG and agree with software generated interpretation.
--- NOTE | 2025-01-28 22:00 | DI.RAD_ITS ---
Exam(s) XR CHEST 2V PA LATERAL EXAM: XR CHEST 2V PA LATERAL CLINICAL HISTORY: Chest pain TECHNIQUE: 2D digital imaging was performed. Two views. COMPARISON: CR XR CHEST 2V PA LATERAL from 09/05/2024 FINDINGS: HEART: Normal size. Aorta: Not dilated. Aortic valve prosthesis. PULMONARY VASCULATURE: Normal. MEDIASTINUM: Unremarkable. LUNGS: Clear. PLEURAL SPACE: No pleural effusion or pneumothorax. BONE:Old right rib fracture. Left left shoulder prosthesis. SOFT TISSUES: Unremarkable. IMPRESSION: No acute abnormality. The preliminary [facility] report was reviewed. DATA REPOSITORY: RADIATION DOSE DELIVERED:
--- NOTE | 2025-01-28 22:01 | ED.GENADUL_ITS ---
Discharge Plan Discharge Details Chief Complaint: Chest Pain Primary Care Provider: Umesh Covarrubias ED Provider: Rosanne Baker Home Meds and New Rx's Prescriptions: No Action losartan 50 mg tablet 50 mg PO DAILY Qty: 90 3RF Rx Instructions: pt stopped and then restarted this me on his own 10/13/21 cc aspirin 81 mg capsule 81 mg PO DAILY lorazepam 1 mg tablet 1 mg PO QHS PRN (Reason: anxiety/sleep) Qty: 30 0RF lorazepam 1 mg tablet 1 mg PO QHS PRN (Reason: insomnia/back spasms) Qty: 30 2RF duloxetine 20 mg capsule,delayed release(DR/EC) 20 mg PO DAILY Qty: 30 5RF [place] Saline 0.65 % aerosol,spray 1 spray intranasal Q2H PRN polyethylene glycol 3350 [Miralax] 17 gram/dose powder 17 g PO DAILY PRN pantoprazole 40 mg tablet,delayed release (DR/EC) 40 mg PO BID Qty: 180 3RF rosuvastatin 20 mg tablet 20 mg PO DAILY Qty: 90 3RF vitamin B complex Capsule 1 cap PO DAILY Patient Comments: PT not taking coenzyme Q10 [Co Q-10] 100 mg Capsule 300 mg PO DAILY Probiotic 3 billion cell Capsule 3,000 mmu cells PO DAILY HPI General Mode of arrival: ambulatory . Date/Time Provider Initiated Documentation: 01/28/25 21:56 . Limitations to Documentation: no limitations . Information obtained by: patient, family and old records reviewed . HPI Narrative: This is an 84-year-old male patient with a past medical history significant for aortic valve replacement in 2012, a history of CKD, hypertension, hyperlipidemia, presenting for evaluation of chest pain. The patient was in his normal state of health this morning, and developed substernal chest pain while walking into the dining room at about 730 this evening. He describes it as a pressure or a heaviness. He states that the pain was worse when he moves about, does not radiate, and is not worsened by palpation or deep breath. He states that he has not tried any medications for management of his pain. It has persisted despite rest, prompting him to seek care. The patient is accompanied by his at bedside who provides supplemental history. Related Data Home Medications ?Medication ?Instructions ?Recorded ?Confirmed coenzyme Q10 100 mg capsule (Co 300 mg PO DAILY 09/03/19 01/28/25 Q-10) lactobacillus combination no.4 3 3,000 mmu cells PO DAILY 09/03/19 01/28/25 billion cell capsule (Probiotic) vitamin B complex 1 cap PO DAILY 09/03/19 01/28/25 aspirin 81 mg capsule 81 mg PO DAILY 12/05/21 01/28/25 sodium chloride 0.65 % nasal spray 1 spray intranasal Q2H PRN 08/07/23 01/28/25 aerosol ([place] Saline) polyethylene glycol 3350 17 17 g PO DAILY PRN 12/21/23 01/28/25 gram/dose oral powder (Miralax) pantoprazole 40 mg tablet,delayed 40 mg PO BID #180 tabs 02/08/24 01/28/25 release losartan 50 mg tablet 50 mg PO DAILY #90 tabs 03/18/24 01/28/25 lorazepam 1 mg tablet 1 mg PO QHS PRN insomnia/back 09/05/24 01/28/25 spasms #30 tabs lorazepam 1 mg tablet 1 mg PO QHS PRN anxiety/sleep #30 10/14/24 01/28/25 tabs rosuvastatin 20 mg tablet 20 mg PO DAILY #90 tabs 11/07/24 01/28/25 duloxetine 20 mg capsule,delayed 20 mg PO DAILY #30 caps 01/16/25 01/28/25 release Previous Rx's ?Medication ?Instructions ?Recorded pantoprazole 40 mg tablet,delayed 40 mg PO BID #180 tabs 02/08/24 release losartan 50 mg tablet 50 mg PO DAILY #90 tabs 03/18/24 lorazepam 1 mg tablet 1 mg PO QHS PRN insomnia/back 09/05/24 spasms #30 tabs lorazepam 1 mg tablet 1 mg PO QHS PRN anxiety/sleep #30 10/14/24 tabs rosuvastatin 20 mg tablet 20 mg PO DAILY #90 tabs 11/07/24 duloxetine 20 mg capsule,delayed 20 mg PO DAILY #30 caps 01/16/25 release Allergies Allergy/AdvReac Type Severity Reaction Status Date / Time metronidazole Allergy Intermediate Skin Rash, Verified 01/28/25 22:02 swelling, itchy sulfamethoxazole (From Allergy turns red Verified 01/28/25 22:02 Bactrim) trimethoprim (From Bactrim) Allergy turns red Verified 01/28/25 22:02 ropinirole AdvReac Severe insomina, Verified 01/28/25 22:02 weakness, intense fatigue zolpidem (From Ambien) AdvReac sleep Verified 01/28/25 22:02 walk General ANIBAL: 3 Exam Narrative Exam Narrative: Gen: Awake and alert, in no apparent distress HEENT: Non-icteric sclera Neck: Supple Lungs: No apparent respiratory distress, normal respiratory effort. Lung sounds clear and equal bilaterally CV: Appears well perfused, midline sternotomy scar appreciated. Heart with regular rate and rhythm, strong distal pulses Abdomen: Non-distended MSK: Moves 4 extremities without apparent limitation in ROM. No peripheral edema, no unilateral calf swelling or tenderness Skin: Visualized skin without rashes, cyanosis. Neuro: Normal Gait, no obvious focal deficits or facial asymmetry. Speaks in full, clear sentences. Psych: Appropriate for situation. Medical Decision Making This is AN 84-year-old male patient presenting for evaluation of substernal chest pain for the last 2-1/2 hours. My differential includes but is not limited to ACS including STEMI, NSTEMI, unstable angina, certainly considered arrhythmia, pericarditis/myocarditis, aortic pathology. Considered pulmonary abnormalities including pneumonia, bronchitis, pleural effusion, pulmonary edema, reactive airway disease, pneumothorax. The patient is without tachycardia, hypoxia, or a pleuritic component to his pain to significantly increase my concern for pulmonary embolism. No GI symptoms or vomiting to suggest Boerhaave's, esophagitis, peptic ulcer disease, pancreatitis. Considered musculoskeletal pathologies including costochondritis, chest wall pain. We obtained an EKG, which shows a sinus rhythm with a rate of 73, with no evidence of STEMI, interval abnormality, or ectopy. I did compare this EKG to 1 obtained in the outpatient environment 10 days ago, and note no dynamic changes. We will obtain laboratory studies to include CBC, CMP, magnesium, troponin. I will obtain a chest x-ray. I will provide the patient with 325 of aspirin and trial a nitroglycerin for pain management. - On reassessment, the patient reports that his chest pain has resolved entirely. I independently interpreted the laboratory studies, which show no significant leukocytosis, anemia, or thrombocytopenia. The chemistry panel is without evidence of electrolyte abnormality or liver injury. The patient has his baseline renal dysfunction without significant worsening compared to priors. Initial troponin is negative but certainly this patient, who is high risk with a heart score of 6, warrants delta troponin rechecks. The chest x-ray shows no abnormalities which might account for the patient's symptoms. I signed out care of this patient to the oncoming provider prior to completion of delta troponins. Disposition per pending laboratory studies, patient remained hemodynamically appropriate throughout his time under my care. Rosanne Baker MD Quality:SDOH Health Related Social Needs: No Data to Display PFSH All Active Problems Globus sensation (Acute) Memory loss (Acute) Ulcer of right foot with fat layer exposed (Acute) Pain in left foot (Acute) Mechanical low back pain (Acute) Right sided abdominal pain (Acute) Pain disorder associated with psychological and physical factors (Acute) Lumbar spondylosis (Acute) Post-laminectomy syndrome (Acute) Poor appetite (Acute) COVID-19 (Acute) Chronic headache (Acute) Orthostatic hypertension (Acute) Chronic rhinitis (Acute) Rib fracture (Acute) Constipation by delayed colonic transit (Acute) BLANCO (dyspnea on exertion) (Acute) Other idiopathic scoliosis, thoracolumbar region (Acute) Acquired hammertoes of both feet (Acute) Nasal congestion (Acute) Pharyngitis (Acute) BPH w urinary obs/LUTS (Acute) Thyroiditis (Acute) Excessive cerumen in both ear canals (Acute) Chronic hyponatremia (Acute) Bronchomalacia (Acute) Stage III chronic kidney disease (Acute) Dx necessary for at-risk foot care with Podiatry Diverticulitis (Chronic) GERD (gastroesophageal reflux disease) (Chronic) HTN (hypertension) (Chronic) Hypercholesterolemia (Acute) Dizziness and giddiness (Acute) Malaise and fatigue (Acute) Cerebrovascular disease (Acute) Aortic valve disorder (Acute) Prostate cancer (Chronic) Diverticular disease of colon (Acute) Iron deficiency anemia (Acute) Depressive disorder (Acute) Headache (Acute) Chronic pansinusitis (Acute) Chronic cough (Acute) White coat syndrome with hypertension (Chronic) Tests in the 120s at home Cough (Acute) per Nikki 02/10/2020 started Breo inhaler 03/02/20 F/U with Dr Jordan, next ov 04/06/20 Hip osteoarthritis (Acute) Obstructive sleep apnea (Chronic ~2017) Moderate-PAP therapy H/O endoscopy (Chronic) 11/2020 Sinusitis, chronic 11/04/21 [place] low grade esophageal ulcer, 2 cm Hiatal Hernia Acute dyspnea (Acute) Insomnia (Chronic) Sleep Clinic. 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) Onychomycosis (Acute 04/23/22) History of hemoptysis (Acute) Stenosis of carotid artery (Acute) [place] [facility] [place] Arteriosclerosis of left carotid artery (Acute) 05/22/22 Vascular Eczema (Chronic) start narrow band UVB bid at [facility] History of vascular surgery (Chronic) Stenting of L internal carotid artery[place] [facility] [place] Nail dystrophy (Acute) Corns and callosities (Acute) Left hip pain (Acute) Impacted cerumen, bilateral (Acute) Conductive hearing loss, external ear (Acute) Long-term current use of proton pump inhibitor therapy (Acute) Sacral back pain (Acute) referred to [facility] per [place] 01[place]02[place]23 [facility] [place]openia (Acute) Syncope (Chronic) Syncope (Chronic) Spondylolisthesis at L4-L5 level (Acute) Medical History History of pyloric stenosis as a child Surgical History H/O lumbosacral spine surgery H/O laminectomy (07/17/23) [facility] Bilateral laminectomy, medial facetectomy, foraminotomy L4-5; Posterior instrumentation L4-5; Posterolateral arthrodesis L4-5; Application of local autograft; Application of allograft morselized History of carotid endarterectomy 2019 H/O colonoscopy (~11/04/21) 11/04/21 Dr Tyler History of colon resection H/O aortic valve replacement History of tonsillectomy H/O shoulder surgery H/O hemorrhoidectomy History of hernia repair Family History Father Tuberculosis Mother Breast cancer Heart disease Sister Cancer Heart disease Hypertension Social History Smoking/Tobacco Use Status: Former Tobacco Use Quit Date: 09/07/1964 Pack- years: 42 Tobacco: How many years used: 14 Smoking risk assessment performed?: Yes Alcohol Intake: current Alcohol Intake frequency: 0-2 drinks per day Alcohol type: wine Drug use: Never Substance use type: does not use Adopted: No Caregiver/Support person: No Foster care: No Household members: spouse Housing: house Number of Children: 1 Education Level: college Do you need help understanding health information?: Never 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 Pets and animals: No Sexually active: Yes Do you think of yourself as: straight/heterosexual Current gender identity: male What is your relationship status?: How often do you talk on the phone with friends or family?: three or more times per week How often do you get together with friends or relatives?: never How often do you attend baptism or jehovah's witness services?: decline to answer Do you belong to any clubs or organized social groups?: no Panel score (0-1 are the most socially isolated patients): 2 What type of physical activity do you participate in: other Details: 2nd Degree Shalini Rodarte Duration: 60-90 minutes/day Frequency: 1-2 times per week Seatbelt use: always Drive intox or ride w/intox special education bus driver: No Working smoke detector in home: Yes Carbon monox detector in home: Yes Do you feel safe at home: Yes Do you feel safe in your relationship?: Yes
[2025-01-28] MEDS: Aspirin 81 MG CHEW 324 MG CH (22:06)
[2025-01-28] MEDS: nitroGLYcerin 0.4 MG TAB SL ×2 (22:06→23:05)
[2025-01-28 22:22] LABS: Abs Immature Grans 0.05 10^3/uL (0.0-0.06); Absolute Basophil Count 0.05 10^3/uL (0.0-0.2); Absolute Eosinophil Count 0.46 10^3/uL (0.0-0.7); Absolute Monocyte Count 0.55 10^3/uL (0.1-0.8); Basophils % 0.5 %; Eosinophils % 4.8 %; HGB 15.2 g/dL (13.5-17.5); Immature Grans % 0.5 %; Lymphocytes % 16.8 %; MCH 31.9 pg (27.0-33.0); MCV 97 fL (80-95); MPV 10.1 fL (8.0-11.0); Monocytes % 5.8 %; Neutrophils % 71.6 %; Platelet Count 155 10^3/uL (130-400); RBC 4.76 10^6/uL (4.36-5.78); RDW-SD 50.5 fL; WBC 9.51 10^3/uL (4.4-10.8)
--- NOTE | 2025-01-28 22:37 | DI.[facility]_ITS ---
PROCEDURE INFORMATION: Exam: XR Chest Exam date and time: 01/28/2025 10:19 PM Age: 84 years old Clinical indication: Other: Chest pain TECHNIQUE: Imaging protocol: Radiologic exam of the chest. Views: 2 views. COMPARISON: CR XR CHEST 2V PA LATERAL 09/05/2024 2:07 PM FINDINGS: Lungs: No focal consolidations or pulmonary edema. Pleural spaces: Normal. Heart/Mediastinum: Normal. Bones/joints: Partially visualized left glenohumeral arthroplasty. Multilevel thoracic spine degenerative disc space narrowing and osteophyte formation. Old right posterior 6th rib fracture. Soft tissues: Soft tissue anchor projects over the right humeral head from prior rotator cuff repair. IMPRESSION: No acute cardiopulmonary abnormality. Dictated and Authenticated by: Zeferino Lu MD. Orderin St. Eloy Lay MD
[2025-01-28 22:39] LABS: ALT 19 U/L (16-63); AST 16 U/L (15-37); Albumin 3.6 g/dL (3.4-5.0); Alkaline Phosphatase 54 U/L (46-116); Anion Gap 5.8 mmol/L (3-11); BUN 26 mg/dL (7-18); Bilirubin, Total 0.4 mg/dL (0.2-1.0); CO2 25.2 mmol/L (21.0-32.0); Chloride 105 mmol/L (98-107); Glucose 129 mg/dL (74-106); Potassium 4.5 mmol/L (3.5-5.1); Sodium 136 mmol/L (136-145); Total Protein 6.2 g/dL (6.4-8.2); Troponin I 19 ng/L (<or=76)
[2025-01-28 23:30] LABS: Troponin I 19 ng/L (<or=76)
[2025-01-29] VITALS (31 sets, daily range): BP systolic 101–139; BP diastolic 54–68; PULSE 60–68; RESP 10–22; O2SAT 93–97
[2025-01-29] MEDS: guaiFENesin 200 MG/10 ML CUP PO (00:02)
[2025-01-29 01:21] LABS: Troponin I 19 ng/L (<or=76)
[2025-01-29] MEDS: nitroGLYcerin 0.4 MG TAB SL (02:16)
--- NOTE | 2025-01-29 07:42 | ED.PROG_ITS ---
Date of service: 01/29/25 Time of Service: 07:42 Medical Decision Making Patient was signed out to me pending repeat troponin. Patient does have risk of cardiac disease, chest pain did improve with nitroglycerin. Patient remains chest pain-free at this time and is asking to be discharged. Serial troponins have returned, and all 3 troponins including initial, 1 hour and 3-hour are all stable at 19. No peaking or gradual increase. Patient remains chest pain-free. Because of the patient's risk factors, and age and symptoms I had a long discussion with him regarding her recommendations to admit him for further observation and stress testing. Unfortunately it is the holiday weekend, and stress testing will not be available for 3 to 4 days from now, additionally there is no ability to get an echo during this time either. Despite this because of the patient's age and risk factors it was still my recommendation to the patient that he stay for further observation and admission. I did discuss with the patient admission/observation to the hospital , and at this time through notable discussion, weighing the risks and benefits, utilizing a shared decision making process, and with a very clear discussion on the benefit of admission and the risks associated with discharge including the unlikely but potential worst case scenario of or lifelong disability the patient has refused admission and would like to go home. Patient is of a appropriate age to make decisions. The patient is of sound mind, appears clinically sober, and has capacity to make decisions by my clinical exam. Respecting the patient's wishes, they will be discharged home. That being said, I had an extensive conversation with the patient regarding the absolute critical nature of the need for close follow-up with his primary care provider, close outpatient stress testing, and prompt return if any symptoms worsen whatsoever. Patient and who is at bedside understand this fully. They understand the risks of going home, but will return if symptoms persist or return at all. Discussed red flags for which to return. At this time with stable EKG, stable troponins, symptoms are inconsistent with PE, ACS, dissection, or other life-threatening etiology currently. I have extensively reviewed the treatment plan and discharge instructions with the patient and their family. I have addressed all patient concerns at this time. The patient and family was made aware of what symptoms to monitor for that would warrant a return to the emergency department. Discussed the plan with the patient and family, they demonstrate verbal understanding and agreement with our assessment and plan at this time. The documentation in this chart was dictated using [employer] MD dictation software. Please excuse any dictation errors. Quality:SDOH Health Related Social Needs: No Data to Display Discharge Plan Disposition Patient Disposition: Home Condition: Good Discharge Details Clinical Impression: Chest discomfort Primary Care Provider: Umesh Covarrubias ED Provider: Kar Shetty Home Meds and New Rx's Prescriptions: No Action losartan 50 mg tablet 50 mg PO DAILY Qty: 90 3RF Rx Instructions: pt stopped and then restarted this me on his own 10/13/21 cc aspirin 81 mg capsule 81 mg PO DAILY lorazepam 1 mg tablet 1 mg PO QHS PRN (Reason: anxiety/sleep) Qty: 30 0RF lorazepam 1 mg tablet 1 mg PO QHS PRN (Reason: insomnia/back spasms) Qty: 30 2RF duloxetine 20 mg capsule,delayed release(DR/EC) 20 mg PO DAILY Qty: 30 5RF [place] Saline 0.65 % aerosol,spray 1 spray intranasal Q2H PRN polyethylene glycol 3350 [Miralax] 17 gram/dose powder 17 g PO DAILY PRN pantoprazole 40 mg tablet,delayed release (DR/EC) 40 mg PO BID Qty: 180 3RF rosuvastatin 20 mg tablet 20 mg PO DAILY Qty: 90 3RF vitamin B complex Capsule 1 cap PO DAILY Patient Comments: PT not taking coenzyme Q10 [Co Q-10] 100 mg Capsule 300 mg PO DAILY Probiotic 3 billion cell Capsule 3,000 mmu cells PO DAILY Discharge Instructions Instructions: Chest pain Additional Instructions: At this time your workup has returned reassuring, however your history is still concerning for cardiac disease. Please follow-up closely with your primary care provider and dry transfer worker for reassessment and outpatient stress testing this week. If you notice any worsening of your symptoms, or any new symptoms such as vomiting, diarrhea, fever, chills, shortness of breath, chest pain, numbness, weakness, or fainting , please return immediately to the emergency department for reevaluation. Please follow up with your primary care provider as soon as possible for reassessment and reevaluation. As always, it was a pleasure participating in your medical care today. Referrals: Umesh Covarrubias DO [Primary Care Provider] - Discharge Data Discharge Date/Time-TO BE ENTERED AT DEPARTURE: 01/29/25 02:18
== END 2025-01-29 02:18 | disposition home or self-care (01) ==
PROVIDERS: Emergency Medicine; Emergency Provider Student in an Organized Health Care Education/Training Program; PCP Family Medicine
DX: R07.9 Chest pain, unspecified (principal); Z86.79 Personal history of other diseases of the circulatory system; Z53.29 Procedure and treatment not carried out because of patient's decision for other reasons
CPT/HCPCS: 99284 ×2; 36415; 00123; 80053; 93005; 71046; 83735; 84484; 85025; 93010; J3490

== ENCOUNTER → 2025-02-01 13:00 | Outpatient (BNVA) | payer MEDICARE, OTHER, SELFPAY | PROVIDERS: PCP Family Medicine; Referring Provider Family Medicine; Visit Provider Podiatrist | DX: L60.3 Nail dystrophy (principal); M79.671 Pain in right foot; M79.672 Pain in left foot; N18.30 Chronic kidney disease, stage 3 unspecified; I73.89 Other specified peripheral vascular diseases; L43.9 Lichen planus, unspecified; L84 Corns and callosities; Z98.890 Other specified postprocedural states; R09.89 Other specified symptoms and signs involving the circulatory and respiratory systems; L65.9 Nonscarring hair loss, unspecified; R20.8 Other disturbances of skin sensation; R23.8 Other skin changes; L60.8 Other nail disorders | CPT/HCPCS: 11720; 11719 ==

== ENCOUNTER 2025-02-09 02:02 | Outpatient (CLI) | payer MEDICARE, OTHER, SELFPAY ==
--- NOTE | 2025-02-09 07:30 | DI.NM_ITS ---
APPROVED REPORT Exam: Pharmacologic Patient Location: Out-Patient Room/Bed: Stress Nurse: Francesca Angeles RN Ordering Provider:LUCIUS MCBRIDE, Contact Number: [phone] BMI: 24.95 Baseline Rhythm: Sinus Rhythm Indications: Angina pectoris Medical History Medical History: Memory loss, orthostatic hypotension, BLANCO, stage III chronic kidney disease, GERD, H TN, Hypercholesterolemia, dizziness, depression, white coat syndrome with HTN, GARIMA, balance disorder, stenosis of carotid artery, syncope. Cardiac Medications: Rosuvastatin, pantoprazole, losartan, lorazepam, duloxetine, aspirin. Allergies: Metronidazole, bactrim, ropinirole, ambien Cardiac Risk Factors: Family hx, HTN, HLD, previous smoker Previous Cardiac Procedures: Hx carotid endartectomy, h/o arotic valve replacement, stenting of left carotid artery (06/28) Pretest Chest Pain Characteristics: None Exercise History: Indeterminate Physical Disabilities: Dizziness, balance disorder Lung Sounds: Clear to auscultation Heart Sounds: Regular Stress Test Details Test: Exercise stress converted to pharmacologic stress due to failure to obtain a diagnostic stress test. Reason for pharmacologic stress test: physical limitation. Nuclear Acquisition: Rest Tc-99m/Stress Tc-99m 1 day Rest Isotope: Tc-99m Sestamibi. Dose: 10.4 Date: 02/09/2025 Injection Time: 1100 Stress Isotope: Tc-99m Sestamibi. Dose: 31.7 Date: 02/09/2025 Injection Time: 1240 HR Resting HR Supine: 67 bpm Max Heart Rate (APMHR): 134 bpm Resting HR Standin bpm Target HR (85% APMHR): 114 bpm Max HR Achieved: 103 bpm % of APMHR: 77 Recovery HR: 80 bpm BP Resting BP Supine: 146/78 mmHg Resting BP Standin/68 mmHg Max BP: 150/80 mmHg Recovery BP: 128/58 mmHg ECG Resting ECG: Sinus Rhythm, 1st degree AV block Ectopy: Occasional PVC's Stress ECG: Sinus Tachycardia, 1st degree AV block ST Change: Nondiagnostic low heart rate Arrhythmia: Occasional PVC's Recovery ECG: Sinus Rhythm, 1st degree AV block Recovery ST Change: Nondiagnostic low heart rate Recovery Arrhythmia: Occasional PVC's Clinical Reason for Termination: Fatigue, SOB Stress Symptoms: General Fatigue, mild-mod SOB Exercise duration: 03 min53 sec Highest Stage Reached: Stage 1: 1.7 mph at 10% grade. Exercise capacity: 4.64 METs Angina Score: None Rate Pressure Product: 81703 Stress ECG Conclusion 1. Resting electrocardiogram was normal 2. Patient underwent testing using a combination of low-level exercise and pharmacologic stress with regadenoson 3. Peak heart rate achieved was 77% of maximal predicted for age 4. The electrocardiographic portion of the test was nondiagnostic 5. See MPI report Stress Test Summary STAGE Time (mins) Speed (mph) Grade (%) HR BP SpO2 SYMPTOMS METS Supine 67 146/78 95% Standing 70 128/68 1 3 1.7 10 92 4.5 1 min post Lexiscan injection 94 150/80 95% 3 min post Lexiscan injection 86 132/62 95% 6 min post Lexiscan injection 80 128/58 95% Patient requested to stop treadmill around 2 minutes of exercise r/t fatuigue and SOB. Transitioned t o a walking brodie test. Patient noted SOB and fatigue resolved at test end. Patient left ambulatory in no apparent distress. MPI Conclusion Myocardial perfusion is normal. There is no evidence of ischemia or prior infarction Ejection fraction is 70% with normal wall motion
[2025-02-09] MEDS: Regadenoson 0.4 MG/5 ML SYR IVP (13:20)
== END 2025-02-09 02:22 ==
PROVIDERS: PCP Family Medicine; Visit Provider Internal Medicine Cardiovascular Disease
DX: I20.9 Angina pectoris, unspecified (principal)
CPT/HCPCS: 78452; 93016; 93018; 93017; J2785

== ENCOUNTER 2025-03-03 07:08 | Observation (INO) | payer MEDICARE, OTHER, SELFPAY ==
[2025-03-03 06:51] VITALS: BP 153/58; PULSE 93; RESP 20; TEMP 36.6; O2SAT 91
[2025-03-03 06:54] VITALS: BP 153/58; PULSE 93; RESP 20; TEMP 36.6; O2SAT 91
[2025-03-03] MEDS: Ondansetron 4 MG/2 ML VIAL IVP (07:45)
[2025-03-03] MEDS: Lactated Ringers 1,000 ML 1000 ML IV (07:45)
[2025-03-03 07:59] LABS: Abs Immature Grans 0.09 10^3/uL (0.0-0.06); Absolute Eosinophil Count 0.37 10^3/uL (0.0-0.7); Absolute Lymphocyte Count 1.37 10^3/uL (1.2-3.4); Basophils % 0.3 %; Eosinophils % 2.1 %; HGB 17.5 g/dL (13.5-17.5); Immature Grans % 0.5 %; Lymphocytes % 7.7 %; MCH 32.1 pg (27.0-33.0); MCV 97 fL (80-95); MPV 10.1 fL (8.0-11.0); Monocytes % 7.2 %; Neutrophils % 82.2 %; Platelet Count 209 10^3/uL (130-400); RBC 5.45 10^6/uL (4.36-5.78); RDW 13.2 % (11.8-14.1)
[2025-03-03 08:02] LABS: Absolute Basophil Count 0.05 10^3/uL (0.0-0.2); Absolute Monocyte Count 1.28 10^3/uL (0.1-0.8); Absolute Neutrophil Count 14.63 10^3/uL (1.2-6.7)
[2025-03-03 08:17] LABS: ALT 23 U/L (16-63); AST 17 U/L (15-37); Albumin 4.3 g/dL (3.4-5.0); Alkaline Phosphatase 69 U/L (46-116); Anion Gap 9.1 mmol/L (3-11); BUN 33 mg/dL (7-18); Bilirubin, Total 0.6 mg/dL (0.2-1.0); CO2 26.9 mmol/L (21.0-32.0); CREATININE 1.9 mg/dL (0.70-1.30); Calcium 10.5 mg/dL (8.5-10.1); Chloride 104 mmol/L (98-107); Estimated GFR 33.93 (mL/min/1.73m2); Glucose 113 mg/dL (74-106); Potassium 3.9 mmol/L (3.5-5.1); Sodium 140 mmol/L (136-145); Total Protein 7.4 g/dL (6.4-8.2)
--- NOTE | 2025-03-03 08:29 | ED.GENADUL_ITS ---
Discharge Plan Disposition Patient Disposition: Admit to [facility] Condition: Good Discharge Details Clinical Impression: Diarrhea, Acute dehydration Admit Date/Time: 03/03/25 09:54 Admit Provider: Xu Cheema Attending Provider: Xu Cheema Primary Care Provider: Umesh Covarrubias ED Provider: Kar Shetty HPI General Date/Time Provider Initiated Documentation: 03/03/25 07:16 . HPI Narrative: This is a pleasant 84-year-old male with a past medical history of GERD, hypertension, high cholesterol, aortic valve replacement, recent right-sided hand/wrist surgery in the past week or so, who presents today for diarrhea. Patient was in [place] for his procedure, 2 days ago he had jackson that did not sit well with him. He felt ill after this, but had no abdominal pain or vomiting. Yesterday they came home from [facility], and he felt fatigued and tired but had no vomiting or diarrhea. And then last night he had about 10-15 episodes of profuse brown watery diarrhea. It started at around 11 PM yesterday, has persisted. He denies any blood or melena. He denies any vomiting or abdominal pain. He denies any fever or chills. He denies drinking out of any ponds or lakes. Aside for the Jackson he and his have had all identical foods except he did have some macaroni salad yesterday but he states this was from a trusted source that they regularly have. And it was fresh. He denies any recent antibiotics. He denies any other complaints at this time. Related Data Home Medications ?Medication ?Instructions ?Recorded ?Confirmed coenzyme Q10 100 mg capsule (Co 300 mg PO DAILY 02/14/25 Q-10) lactobacillus combination no.4 3 3,000 mmu cells PO DA GEMA 09/03/19 02/14/25 billion cell capsule (Probiotic) vitamin B complex 1 cap PO DAILY 09/03/1902/05 aspirin 81 mg capsule 81 mg PO DAILY 12/05/2102/05 sodium chloride 0.65 % nasal spray 1 spray intranasal Q2H PRN 08/07/23 02/14/25 aerosol (Stonewall Saline) polyethylene glycol 3350 17 17 g PO DAILY PRN 12/21/23 02/14/25 gram/dose oral powder (Miralax) lorazepam 1 mg tablet 1 mg PO QHS PRN insomnia/gladys k 09/05/24 02/14/25 spasms #30 tabs rosuvastatin 20 mg tablet 20 mg PO DAILY #90 tabs 03/0 11/2902/14/25 lorazepam 1 mg tablet 1 mg PO QHS PRN anxiety/slee p #30 02/14/25 02/14/25 tabs losartan 50 mg tablet 50 mg PO DAILY #90 tabs 02/05 002/14/25 pantoprazole 40 mg tablet,delayed 40 mg PO BID #180 ta bs 02/14/25 02/14/25 release naloxone 4 mg/actuation nasal 4 mg intranasal Q2M #2 e a 02/16/25 spray (Narcan) Previous Rx's ?Medication ?Instructions ?Recorded lorazepam 1 mg tablet 1 mg PO QHS PRN insomnia/gladys k 09/05/24 spasms #30 tabs rosuvastatin 20 mg tablet 20 mg PO DAILY #90 tabs 030 11/29 lorazepam 1 mg tablet 1 mg PO QHS PRN anxiety/slee p #30 02/14/25 tabs losartan 50 mg tablet 50 mg PO DAILY #90 tabs 02/05 pantoprazole 40 mg tablet,delayed 40 mg PO BID #180 ta bs 02/14/25 release naloxone 4 mg/actuation nasal 4 mg intranasal Q2M #2 e a 02/16/25 spray (Narcan) Allergies Allergy/AdvReac Type Severity Reaction Status Date / Time metronidazole Allergy Intermediate Skin Rash, Verified 02/14/25 15:38 swelling, itchy sulfamethoxazole (From Allergy turns red Verified 02/14/25 15:38 Bactrim) trimethoprim (From Bactrim) Allergy turns red Verified 02/14/25 15:38 ropinirole AdvReac Severe insomina, Verified 02/14/25 15:38 weakness, intense fatigue zolpidem (From Ambien) AdvReac sleep Verified 02/14/25 15:38 walk General Stated Complaint: Abd Prob ANIBAL: 3 Exam Narrative Exam Narrative: 1.Const: Well-nourished, Well-developed, appearing stated age 2.Eyes: PERRL, no conjunctival injection, and symmetrical lids. 3.ENT: Atraumatic external nose and ears. Notably dry MM. Neck: Symmetric, trachea midline, No thyromegaly. 4.CVS: +S1/S2, Peripheral pulses 2+ and equal in all extremities. Brisk capillary refill in all extremities. 5.RESP: Unlabored respiratory effort. Clear to auscultation bilaterally. No wheezes rales or rhonchi 6.GI: Soft, Nontender/Nondistended, No hepatosplenomegaly. No guarding or rebound. 7.MSK: Normocephalic/Atraumatic, Extremities w/o deformity or ttp No cyanosis or clubbing, Normal movement of all extremities 8.Skin: Warm, Dry. No rashes or lesions. 9.Neuro: clinical documentation manager II-XII grossly intact. Sensation grossly intact, no focal neurologic deficits. 10.Psych: (AAO) x3. Appropriate mood and affect Course Vital Signs Vital signs: Vital Signs Temperature 36.6 C 03/03/25 06:51 Pulse 93 H 03/03/25 06:51 Respiratory Rate 20 03/03/25 06:51 Blood Pressure 153/58 H 03/03/25 06:51 Pulse Oximetry 91 L 03/03/25 06:51 Temperature 36.6 C 03/03/25 06:54 Pulse 93 H 03/03/25 06:54 Respiratory Rate 20 03/03/25 06:54 Blood Pressure 153/58 H 03/03/25 06:54 Blood Pressure Position Sitting 03/03/25 06:54 Pulse Oximetry 91 L 03/03/25 06:54 Oxygen Delivery Method Room Air 03/03/25 06:54 Oxygen Flow Rate 0 03/03/25 06:54 Lab/Test Results Lab/Test Results: Laboratory Tests Range/Units 03/03/25 07:40 WBC (4.4-10.8) 10^3/uL 17.80 H RBC (4.36-5.78) 10^6/uL 5.45 Hgb (13.5-17.5) g/dL 17.5 Hct (40.0-50.0) % 53.0 H MCV (80-95) fL 97 H MCH (27.0-33.0) pg 32.1 MCHC (32.0-36.0) % 33.0 RDW (11.8-14.1) % 13.2 Plt Count (130-400) 10^3/uL 209 MPV (8.0-11.0) fL 10.1 Immature Gran % % 0.5 Neutrophils % % 82.2 Lymphocytes % % 7.7 Monocytes % % 7.2 Eosinophils % % 2.1 Basophils % % 0.3 Nucleated RBC % (0.0-0.3) % 0.0 Absolute Neutrophils (1.2-6.7) 10^3/uL 14.63 H Absolute Lymphocytes (1.2-3.4) 10^3/uL 1.37 Absolute Monocytes (0.1-0.8) 10^3/uL 1.28 H Absolute Eosinophils (0.0-0.7) 10^3/uL 0.37 Absolute Basophils (0.0-0.2) 10^3/uL 0.05 Sodium (136-145) mmol/L 140 Potassium (3.5-5.1) mmol/L 3.9 Chloride (98-107) mmol/L 104 Carbon Dioxide (21.0-32.0) mmol/L 26.9 Anion Gap (3-11) mmol/L 9.1 BUN (7-18) mg/dL 33 H Creatinine (0.70-1.30) mg/dL 1.9 H Est GFR (CKD-EPI 2020) (mL/min/1.73m2) 33.93 Glucose (74-106) mg/dL 113 H Calcium (8.5-10.1) mg/dL 10.5 H Total Bilirubin (0.2-1.0) mg/dL 0.6 AST (15-37) U/L 17 ALT (16-63) U/L 23 Alkaline Phosphatase (46-116) U/L 69 Total Protein (6.4-8.2) g/dL 7.4 Albumin (3.4-5.0) g/dL 4.3 Medical Decision Making This is a pleasant 84-year-old male with a past medical history of GERD, hypertension, high cholesterol, aortic valve replacement, recent right-sided hand/wrist surgery in the past week or so, who presents today for diarrhea. Patient was in [place] for his procedure, 2 days ago he had jackson that did not sit well with him. He felt ill after this, but had no abdominal pain or vomiting. Yesterday they came home from [facility], and he felt fatigued and tired but had no vomiting or diarrhea. And then last night he had about 10-15 episodes of profuse brown watery diarrhea. It started at around 11 PM yesterday, has persisted. He denies any blood or melena. He denies any vo miting or abdominal pain. He denies any fever or chills. He denies drinking out of any ponds or lakes. Aside for the Jackson he and his have had all identical foods except he did have some macaroni salad yesterday but he states this was from a trusted source that they regularly have. And it was fresh. He denies any recent antibiotics. He denies any other complaints at this time. Exam demonstrates dry mucous membranes, nontender abdomen, vital signs demonstrate mild tachycardia with hypertension. He denies any chest pain or shortness of breath. Concern for infectious diarrhea, potentially C. difficile he states he has been taking daily senna. For concern for constipation as he had had some oxycodones from the procedure, and this certainly could be a component but I feel it less likely. We will test for infectious diarrheas, will rehydrate, will check labs to make sure electrolytes are stable, will monitor closely and reassess. 11:12 AM Laboratory workup has returned, patient does have moderate white count at 17 with a left shift but no bandemia. Electrolytes are stable, creatinine has oscillated in the past but is slightly worse than normal at 1.9. Clinically certainly appears dehydrated. Magnesium levels normal, calcium level minimally high at 10.5. C. difficile study has returned back negative. Patient still feels extremely weak even after the liter of fluids. Heart rate is still mildly tachycardic. With no abdominal pain I do not see an indication for emergent CT imaging as the symptoms do not appear consistent with colitis. However because of the patient's age, and risk factors I do feel that he would benefit from admission for continued hydration and monitoring. Complicating the issue, the patient recently had surgery on his wrist, and so he is not able to grab push or hold well, which would be needed for this 84-year-old man getting on and off the commode. He has still had multiple episodes of diarrhea while here, and I am worried that with his inhibited mobility, age, weakness, and limited support at home with his elderly he would have a high risk for outpatient failure, and also potential significant injury. I discussed the case with the hospitalist, they agree with the assessment and plan. Patient will be admitted for continued fluids and monitoring. I have extensively reviewed the treatment plan with the patient. I have addressed all patient concerns at this time. I have also discussed the plan with the admitting physician and they agree with the current assessment and plan and have agreed to assume responsibility for the patient. All parties demonstrate verbal understanding and agreement with our assessment and plan at this time. The documentation in this chart was dictated using Twonq dictation software. Please excuse any dictation errors. PFSH All Active Problems (Updated 03/03/25 @ 11:16 by Kar Shetty DO) Acute dehydration (Acute) Diarrhea (Acute) Dehydration (Acute) Leukocytosis (Acute) On deep vein thrombosis (DVT) prophylaxis (Acute) Insomnia (Acute) Globus sensation (Acute) Memory loss (Acute) Ulcer of right foot with fat layer exposed (Acute) Pain in left foot (Acute) Mechanical low back pain (Acute) Right sided abdominal pain (Acute) Pain disorder associated with psychological and physical factors (Acute) Lumbar spondylosis (Acute) Post-laminectomy syndrome (Acute) Poor appetite (Acute) COVID-19 (Acute) Chronic headache (Acute) Orthostatic hypertension (Acute) Chronic rhinitis (Acute) Rib fracture (Acute) Constipation by delayed colonic transit (Acute) BLANCO (dyspnea on exertion) (Acute) Other idiopathic scoliosis, thoracolumbar region (Acute) Acquired hammertoes of both feet (Acute) Nasal congestion (Acute) Pharyngitis (Acute) BPH w urinary obs/LUTS (Acute) Thyroiditis (Acute) Excessive cerumen in both ear canals (Acute) Chronic hyponatremia (Acute) Bronchomalacia (Acute) Stage III chronic kidney disease (Acute) Dx necessary for at-risk foot care with Podiatry Diverticulitis (Chronic) GERD (gastroesophageal reflux disease) (Chronic) HTN (hypertension) (Chronic) Hypercholesterolemia (Acute) Dizziness and giddiness (Acute) Malaise and fatigue (Acute) Cerebrovascular disease (Acute) Aortic valve disorder (Acute) Prostate cancer (Chronic) Diverticular disease of colon (Acute) Iron deficiency anemia (Acute) Depressive disorder (Acute) Headache (Acute) Chronic pansinusitis (Acute) Chronic cough (Acute) White coat syndrome with hypertension (Chronic) Tests in the 120s at home Cough (Acute) per Nikki 02/10/2020 started Breo inhaler 03/02/20 F/U with Dr Jordan, next ov 04/06/20 Hip osteoarthritis (Acute) Obstructive sleep apnea (Chronic ~2017) Moderate-PAP therapy H/O endoscopy (Chronic) 11/2020 Sinusitis, chronic 11/04/21 [place] low grade esophageal ulcer, 2 cm Hiatal Hernia Acute dyspnea (Acute) Insomnia (Chronic) Sleep Clinic. 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) Onychomycosis (Acute 04/23/22) History of hemoptysis (Acute) Stenosis of carotid artery (Acute[place] [facility] [place] Arteriosclerosis of left carotid artery (Acute) 05/22/22 Vascular Eczema (Chronic) start narrow band UVB bid at [facility] History of vascular surgery (Chronic) Stenting of L internal carotid artery[place] [facility] [place] plav[place] Nail dystrophy (Acute) Corns and callosities (Acute) Left hip pain (Acute) Impacted cerumen, bilateral (Acute) Conductive hearing loss, external ear (Acute) Long-term current use of proton pump inhibitor therapy (Acute) Sacral back pain (Acute) referred to Sp[facility] Clinic per note 01[place]02[place] [facility] [place]openia (Acute) Syncope (Chronic) Syncope (Chronic) Spondylolisthesis at L4-L5 level (Acute) Medical History History of pyloric stenosis as a child Surgical History H/O lumbosacral spine surgery H/O laminectomy (07/17/23) [facility] Bilateral laminectomy, medial facetectomy, foraminotomy L4-5; Posterior instrumentation L4-5; Posterolateral arthrodesis L4-5; Application of local autograft; Application of allograft morselized History of carotid endarterectomy 2020 H/O colonoscopy (~11/04/21) 11/04/21 Dr Tyler History of colon resection H/O aortic valve replacement History of tonsillectomy H/O shoulder surgery H/O hemorrhoidectomy History of hernia repair Family History Father Tuberculosis Mother Breast cancer Heart disease Sister Cancer Heart disease Hypertension Social History Smoking/Tobacco Use Status: Former Tobacco Use Quit Date: 09/07/1964 Pack- years: 42 Tobacco: How many years used: 14 Smoking risk assessment performed?: Yes Alcohol Intake: current Alcohol Intake frequency: 0-2 drinks per day Alcohol type: wine Drug use: Never Substance use type: does not use Adopted: No Caregiver/Support person: No Foster care: No Household members: spouse Housing: house Number of Children: 1 Education Level: college Do you need help understanding health information?: Never 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 Pets and animals: No Sexually active: Yes Do you think of yourself as: straight/heterosexual Current gender identity: male What is your relationship status?: How often do you talk on the phone with friends or family?: three or more times per week How often do you get together with friends or relatives?: never How often do you attend episcopal or mormon services?: decline to answer Do you belong to any clubs or organized social groups?: no Panel score (0-1 are the most socially isolated patients): 2 What type of physical activity do you participate in: other Details: 2nd Degree Shalini Rodarte Duration: 60-90 minutes/day Frequency: 1-2 times per week Seatbelt use: always Drive intox or ride w/intox 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 driver: No Working smoke detector in home: Yes Carbon monox detector in home: Yes Do you feel safe at home: Yes Do you feel safe in your relationship?: Yes PAWSS Have you Been Recently Intoxicated or Drunk Within the Last 30 days?: No Have you Ever Experienced Previous Episodes of Alcohol Withdrawal?: No Have you ever Experienced Withdrawal Seizures?: No Have you ever Experienced Delirium Tremens(DT)s?: No Have you ever undergone Alcohol Rehabilitation Treatment (i.e, inpt ot outpatient treatment programs)?: No Have you ever Experienced Blackouts?: No Have you ever Combined Alcohol with other Downers within the last 90 days?: No Have you ever Combined Alcohol with any other Substance of Abuse during the last 90 days?: No Positive Blood Alcohol level on Presentation? [PCS.BAL]: No Evidence of Increased Autonomic Activity (i.e. HR>120, tremor, sweating, agitation, nausea)?: No Result: 0
[2025-03-03 08:58] LABS: C Diff PCR Negative (Negative); EPI 027-NAP1-B1 PRESUMPTIVE NEGATIVE
--- NOTE | 2025-03-03 09:47 | W.PM.HP.N ---
Date of service: 03/03/25 Time of Service: 09:49 Assessment and Plan Assessment and plan (1) Sepsis: Status: Acute Assessment and plan: Sepsis criteria met with WBC above 12 at 17 -patient presenting with tachycardia with heart rate 93 The source is most likely GI -C. difficile negative; could also be viral we will hold off antibiotics Procalcitonin pending Slow IVF overnight Labs in a.m. Low threshold to antibiotics if patient develops fevers Stool PCR and parasite pending (2) Leukocytosis: Status: Acute Assessment and plan: As above we will continue to monitor (3) Dehydration: Status: Acute Assessment and plan: As above (4) CVA (cerebral vascular accident): Status: Chronic Assessment and plan: History of only on ASA and statin (5) S/P TAVR (transcatheter aortic valve replacement): Status: Acute Assessment and plan: Bioprosthetic valve no DOAC (6) HTN (hypertension): Status: Chronic Assessment and plan: on home meds (7) On deep vein thrombosis (DVT) prophylaxis: Status: Acute Assessment and plan: On Lovenox Discussed with Dr. Cheema History of Present Illness History of Present Illness Chief Complaint: Diarrhea nausea vomiting Narrative: This 84 years old male with past medical history of TAVR bioprosthetic, hernia repair, diverticulosis, GERD, hypertension, hyperlipidemia, right-sided hand wrist surgery this week presented to the ED at [facility] with ongoing profuse watery brown diarrhea up to 15 episodes overnight , nausea and vomiting. Patient reporting eating jackson on his way from [facility] 2 days ago and links this to his symptoms. Work-up was positive for leukocytosis,BUN 39 with near normal creatinine w/o STACY, c-diff negative, The patient was normtensive with a HR above 90, and afebrile. The patient was admitted to the medical surgical service for sepsis, dehydration, nausea, vomittin, diarrhea. The patient reported chills, dizziness, and headache; denied fevers hematemesis, shortness of breath, chest pain, abdominal pain, hematochezia or dysuria. Patient confirmed full CODE STATUS. Review of Systems All systems reviewed & are unremarkable except as noted in HPI and below PFSH All Active Problems (Updated 03/03/25 @ 18:03 by Mary Jane Freeman APRN) S/P TAVR (transcatheter aortic valve replacement) (Acute) CVA (cerebral vascular accident) (Chronic) Sepsis (Acute) Acute dehydration (Acute) Diarrhea (Acute) Dehydration (Acute) Leukocytosis (Acute) On deep vein thrombosis (DVT) prophylaxis (Acute) Insomnia (Acute) Globus sensation (Acute) Memory loss (Acute) Ulcer of right foot with fat layer exposed (Acute) Pain in left foot (Acute) Mechanical low back pain (Acute) Right sided abdominal pain (Acute) Pain disorder associated with psychological and physical factors (Acute) Lumbar spondylosis (Acute) Post-laminectomy syndrome (Acute) Poor appetite (Acute) COVID-19 (Acute) Chronic headache (Acute) Orthostatic hypertension (Acute) Chronic rhinitis (Acute) Rib fracture (Acute) Constipation by delayed colonic transit (Acute) BLANCO (dyspnea on exertion) (Acute) Other idiopathic scoliosis, thoracolumbar region (Acute) Acquired hammertoes of both feet (Acute) Nasal congestion (Acute) Pharyngitis (Acute) BPH w urinary obs/LUTS (Acute) Thyroiditis (Acute) Excessive cerumen in both ear canals (Acute) Chronic hyponatremia (Acute) Bronchomalacia (Acute) Stage III chronic kidney disease (Acute) Dx necessary for at-risk foot care with Podiatry Diverticulitis (Chronic) GERD (gastroesophageal reflux disease) (Chronic) HTN (hypertension) (Chronic) Hypercholesterolemia (Acute) Dizziness and giddiness (Acute) Malaise and fatigue (Acute) Cerebrovascular disease (Acute) Aortic valve disorder (Acute) Prostate cancer (Chronic) Diverticular disease of colon (Acute) Iron deficiency anemia (Acute) Depressive disorder (Acute) Headache (Acute) Chronic pansinusitis (Acute) Chronic cough (Acute) White coat syndrome with hypertension (Chronic) Tests in the 120s at home Cough (Acute) per Nikki 02/10/2020 started Breo inhaler 03/02/20 F/U with Dr Jordan, next ov 04/06/20 Hip osteoarthritis (Acute) Obstructive sleep apnea (Chronic ~2017) Moderate-PAP therapy H/O endoscopy (Chronic) 11/2020 Sinusitis, chronic 11/04/21 [place] low grade esophageal ulcer, 2 cm Hiatal Hernia Acute dyspnea (Acute) Insomnia (Chronic) Sleep Clinic. 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) Onychomycosis (Acute 04/23/22) History of hemoptysis (Acute) Stenosis of carotid artery (Acute) 05/22/22 [facility] Vascular Arteriosclerosis of left carotid artery (Acute) 05/22/22 Vascular Eczema (Chronic) start narrow band UVB bid at [facility] History of vascular surgery (Chronic) Stenting of L internal carotid artery, 06/28, [facility], started plavix Nail dystrophy (Acute) Corns and callosities (Acute) Left hip pain (Acute) Impacted cerumen, bilateral (Acute) Conductive hearing loss, external ear (Acute) Long-term current use of proton pump inhibitor therapy (Acute) Sacral back pain (Acute) referred to Spine Clinic per note 01/02/23 [facility] Osteopenia (Acute) Syncope (Chronic) Syncope (Chronic) Spondylolisthesis at L4-L5 level (Acute) Medical History History of pyloric stenosis as a child Surgical History H/O lumbosacral spine surgery H/O laminectomy (07/17/23) [facility] Bilateral laminectomy, medial facetectomy, foraminotomy L4-5; Posterior instrumentation L4-5; Posterolateral arthrodesis L4-5; Application of local autograft; Application of allograft morselized History of carotid endarterectomy 2020 H/O colonoscopy (~11/04/21) 11/04/21 Dr Tyler History of colon resection H/O aortic valve replacement History of tonsillectomy H/O shoulder surgery H/O hemorrhoidectomy History of hernia repair Family History Father Tuberculosis Mother Breast cancer Heart disease Sister Cancer Heart disease Hypertension Social History Smoking/Tobacco Use Status: Former Tobacco Use Quit Date: 09/07/1964 Pack-years: 42 Tobacco: How many years used: 14 Smoking risk assessment performed?: Yes Alcohol Intake: current Alcohol Intake frequency: 0-2 drinks per day Alcohol type: wine Drug use: Never Substance use type: does not use Adopted: No Caregiver/Support person: No Foster care: No Household members: spouse Housing: house Number of Children: 1 Education Level: college Do you need help understanding health information?: Never 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 Pets and animals: No Sexually active: Yes Do you think of yourself as: straight/heterosexual Current gender identity: male What is your relationship status?: How often do you talk on the phone with friends or family?: three or more times per week How often do you get together with friends or relatives?: never How often do you attend jain or uatsdin services?: decline to answer Do you belong to any clubs or organized social groups?: no Panel score (0-1 are the most socially isolated patients): 2 What type of physical activity do you participate in: other Details: 2nd Degree Plate Cutter, Shalini Duration: 60-90 minutes/day Frequency: 1-2 times per week Seatbelt use: always Drive intox or ride w/intox box truck driver: No Working smoke detector in home: Yes Carbon monox detector in home: Yes Do you feel safe at home: Yes Do you feel safe in your relationship?: Yes Meds Allergies and Home Medications Allergies Allergy/AdvReac Type Severity Reaction Status Date / Time metronidazole Allergy Intermediate Skin Rash, Verified 02/14/25 15:38 swelling, itchy sulfamethoxazole (From Allergy turns red Verified 02/14/25 15:38 Bactrim) trimethoprim (From Bactrim) Allergy turns red Verified 02/14/25 15:38 ropinirole AdvReac Severe insomina, Verified 02/14/25 15:38 weakness, intense fatigue zolpidem (From Ambien) AdvReac sleep Verified 02/14/25 15:38 walk Home Medications ?Medication ?Instructions ?Recorded ?Confirmed ?Type coenzyme Q10 100 mg capsule (Co 300 mg PO DAILY 09/03/19 03/03/25 History Q-10) lactobacillus combination no.4 3 3,000 mmu cells PO DAILY 09/03/19 03/03/25 History billion cell capsule (Probiotic) vitamin B complex 1 cap PO DAILY 09/03/19 03/03/25 History aspirin 81 mg capsule 81 mg PO DAILY 12/05/21 03/03/25 History polyethylene glycol 3350 17 17 g PO DAILY PRN 12/21/23 03/03/25 History gram/dose oral powder (Miralax) lorazepam 1 mg tablet 1 mg PO QHS PRN insomnia/back 09/05/24 03/03/25 Rx spasms #30 tabs losartan 50 mg tablet 50 mg PO DAILY #90 tabs 02/14/25 03/03/25 Rx pantoprazole 40 mg tablet,delayed 40 mg PO BID #180 tabs 02/14/25 03/03/25 Rx release naloxone 4 mg/actuation nasal 4 mg intranasal Q2M #2 ea 02/16/25 03/03/25 Rx spray (Narcan) ascorbic acid (vitamin C) 500 mg 500 mg PO DAILY 03/03/25 03/03/25 History tablet,extended release (C-500) cholecalciferol (vitamin D3) 50 2,000 unit PO DAILY 03/03/25 03/03/25 History mcg (2,000 unit) capsule oxycodone-acetaminophen 5 mg-325 1 tab PO Q4H PRN 03/03/25 03/03/25 History mg tablet rosuvastatin 20 mg tablet 20 mg PO DAILY 03/03/25 03/03/25 History triamcinolone acetonide 0.025 % 1 applic topical BID PRN 03/03/25 03/03/25 History topical cream Exam Narrative Exam Narrative: The patient is alert and oriented x 3 but has short-term memory impairment, no acute distress, no focal neurodeficit, clear lungs, S1-S2 regular, pulses are positive to all 4 extremity, abdomen is nondistended soft nontender, no CVA tenderness Results Labs 03/03/25 07:40 03/03/25 07:40 Labs: Laboratory Results - last 24 hr 03/03/25 03/03/25 07:40 07:45 WBC 17.80 H RBC 5.45 Hgb 17.5 Hct 53.0 H MCV 97 H MCH 32.1 MCHC 33.0 RDW 13.2 Plt Count 209 MPV 10.1 Immature Gran % 0.5 Neutrophils % 82.2 Lymphocytes % 7.7 Monocytes % 7.2 Eosinophils % 2.1 Basophils % 0.3 Nucleated RBC % 0.0 Absolute Neutrophils 14.63 H Absolute Lymphocytes 1.37 Absolute Monocytes 1.28 H Absolute Eosinophils 0.37 Absolute Basophils 0.05 Sodium 140 Potassium 3.9 Chloride 104 Carbon Dioxide 26.9 Anion Gap 9.1 BUN 33 H Creatinine 1.9 H Est GFR (CKD-EPI 2020) 33.93 Glucose 113 H Calcium 10.5 H Total Bilirubin 0.6 AST 17 ALT 23 Alkaline Phosphatase 69 Total Protein 7.4 Albumin 4.3 Stl C.difficile Tox PCR Negative Last Vital Signs Temp 36.6 C 03/03/25 06:54 Pulse 93 H 03/03/25 06:54 Resp 20 03/03/25 06:54 BP 153/58 H 03/03/25 06:54 Pulse Ox 91 L 03/03/25 06:54 PAWSS Have you Been Recently Intoxicated or Drunk Within the Last 30 days?: No Have you Ever Experienced Previous Episodes of Alcohol Withdrawal?: No Have you ever Experienced Withdrawal Seizures?: No Have you ever Experienced Delirium Tremens(DT)s?: No Have you ever undergone Alcohol Rehabilitation Treatment (i.e, inpt ot outpatient treatment programs)?: No Have you ever Experienced Blackouts?: No Have you ever Combined Alcohol with other Downers within the last 90 days?: No Have you ever Combined Alcohol with any other Substance of Abuse during the last 90 days?: No Positive Blood Alcohol level on Presentation? [PCS.BAL]: No Evidence of Increased Autonomic Activity (i.e. HR>120, tremor, sweating, agitation, nausea)?: No Result: 0 Time Spent Time spent with Patient: >75 minutes Time was spent: preparing to see the patient(eg.review tests), obtaining and/or reviewing separately otained hiistory, ordering medications,tests, procedures, referring, communicating with other health health care social worker, indepentently interpreting results, counseling the patient and care coordination
[2025-03-03] MEDS: Acetaminophen 500 MG TAB (10:07)
[2025-03-03 11:28] VITALS: BP 137/80; PULSE 88; RESP 14; TEMP 36.7; O2SAT 92
--- NOTE | 2025-03-03 13:14 | W.PC.ACHO ---
Registration Status: ADM PHILIPP Primary Language: Preferred Language: [place] ED Information & Data Chief Complaint Abd Prob 03/03/25 08:32 Triage Note nausea yesterday, persistent 03/03/25 06:51 diarrhea starting this morning. Medical / Surgical History (Last Reviewed 02/02/25 @ 12:21 by Caitlin Teran DPM) History of pyloric stenosis as a child (Last Reviewed 02/02/25 @ 12:21 by Caitlin Teran DPM) H/O lumbosacral spine surgery H/O laminectomy (07/17/23) History of carotid endarterectomy H/O colonoscopy (~11/04/21) History of colon resection H/O aortic valve replacement History of tonsillectomy H/O shoulder surgery H/O hemorrhoidectomy History of hernia repair Most Recent Vital Signs Temperature 36.6 C 03/03/25 06:54 Pulse 93 H 03/03/25 06:54 Respiratory Rate 20 03/03/25 06:54 Blood Pressure 153/58 H 03/03/25 06:54 Blood Pressure Position Sitting 03/03/25 06:54 Pulse Oximetry 91 L 03/03/25 06:54 Oxygen Delivery Method Room Air 03/03/25 06:54 Oxygen Flow Rate 0 03/03/25 06:54 Allergies metronidazole Allergy (Intermediate, Verified 02/14/25 15:38) Skin Rash, swelling, itchy sulfamethoxazole (From Bactrim) Allergy (Verified 02/14/25 15:38) turns red trimethoprim (From Bactrim) Allergy (Verified 02/14/25 15:38) turns red ropinirole Adverse Reaction (Severe, Verified 02/14/25 15:38) insomina, weakness, intense fatigue zolpidem (From Ambien) Adverse Reaction (Verified 02/14/25 15:38) sleep walk IV IV Catheter Type [Left Saline Lock Antecubital] IV Catheter Gauge [Left 20 Antecubital] Diet Orders Category Date Time Status Heart Healthy Eating [DIET] Nutrition 03/03/25 Lunch Active Diagnostics 03/03/25 03/03/25 Range/Units 07:45 07:40 WBC 17.80 H (4.4-10.8) 10^3/uL RBC 5.45 (4.36-5.78) 10^6/uL Hgb 17.5 (13.5-17.5) g/dL Hct 53.0 H (40.0-50.0) % MCV 97 H (80-95) fL MCH 32.1 (27.0-33.0) pg MCHC 33.0 (32.0-36.0) % RDW 13.2 (11.8-14.1) % Plt Count 209 (130-400) 10^3/uL MPV 10.1 (8.0-11.0) fL Immature Gran % 0.5 % Neutrophils % 82.2 % Lymphocytes % 7.7 % Monocytes % 7.2 % Eosinophils % 2.1 % Basophils % 0.3 % Nucleated RBC % 0.0 (0.0-0.3) % Absolute Neutrophils 14.63 H (1.2-6.7) 10^3/uL Absolute Lymphocytes 1.37 (1.2-3.4) 10^3/uL Absolute Monocytes 1.28 H (0.1-0.8) 10^3/uL Absolute Eosinophils 0.37 (0.0-0.7) 10^3/uL Absolute Basophils 0.05 (0.0-0.2) 10^3/uL Sodium 140 (136-145) mmol/L Potassium 3.9 (3.5-5.1) mmol/L Chloride 104 (98-107) mmol/L Carbon Dioxide 26.9 (21.0-32.0) mmol/L Anion Gap 9.1 (3-11) mmol/L BUN 33 H (7-18) mg/dL Creatinine 1.9 H (0.70-1.30) mg/dL Est GFR (CKD-EPI 2020) 33.93 (mL/min/1.73m2) Glucose 113 H (74-106) mg/dL Calcium 10.5 H (8.5-10.1) mg/dL Magnesium 2.0 (1.8-2.4) mg/dL Total Bilirubin 0.6 (0.2-1.0) mg/dL AST 17 (15-37) U/L ALT 23 (16-63) U/L Alkaline Phosphatase 69 (46-116) U/L Total Protein 7.4 (6.4-8.2) g/dL Albumin 4.3 (3.4-5.0) g/dL Stool Campylobacter PCR Pending Stl C.difficile Tox PCR Negative (Negative) Stool Salmonella PCR Pending Stool Shigella PCR Pending Cryptosporidium/Giardia Pending Shiga Toxin (PCR) Pending Intake and Output - 24 Hour Total 03/03/25 06:37 thru 03/03/25 10:40 Intake Total 1010 Balance 1010 Weight 71.758 kg Intake: IV 1010 Other: # Bowel Movements 5 Falls Risk Assessment History of Falls No History 03/03/25 06:54 Contributing Factors No Factors 03/03/25 06:54 Ambulatory Aids Independent 03/03/25 06:54 Tubes/Lines None 03/03/25 06:54 Gait Evaluation No gait disturbance 03/03/25 06:54 Cognition No cognitive impairment 03/03/25 06:54 Fall Total Score 0 03/03/25 06:54 Level of Risk Standard/Low Risk 03/03/25 06:54 Problems (Last Reviewed 02/02/25 @ 12:21 by Caitlin Teran DPM) Dehydration (Acute) Leukocytosis (Acute) On deep vein thrombosis (DVT) prophylaxis (Acute) v v v v v v v v v Sending and/or Receiving Nurses: Please use comment section below to note any information pertinent to the patient hand-off not included above. Information / Comments: Report received from:Emily in ER, patient recently traveled home from [facility] and over the last 24 hrs has had multiple episodes of diarrhea.
[2025-03-03 19:10] LABS: Procalcitonin < 0.10 ng/mL
[2025-03-03 19:30] VITALS: BP 135/63; PULSE 87; RESP 18; TEMP 37; O2SAT 97
[2025-03-03] MEDS: Lactated Ringers 1,000 ML 75 ML IV (19:41)
[2025-03-03] MEDS: LORazepam 1 MG TAB PO (20:08)
[2025-03-03] MEDS: Pantoprazole 40 MG TABCR PO (20:08)
[2025-03-03] MEDS: Normal Saline Flush 10 ML SYR IVP (20:08)
[2025-03-03 23:05] LABS: Campylobacter PCR Negative (Negative); Salmonella PCR Negative (Negative); Shiga Toxin PCR Negative (Negative); Shigella/Enteroinvasive Ecoli Negative (Negative)
[2025-03-04 08:20] VITALS: BP 132/74; PULSE 80; RESP 17; TEMP 36.7; O2SAT 94
[2025-03-04] MEDS: Normal Saline Flush 10 ML SYR IVP (08:22)
[2025-03-04] MEDS: Pantoprazole 40 MG TABCR PO (08:22)
[2025-03-04] MEDS: Lactobacillus Acidophilus CAP 1 CAP PO (08:57)
[2025-03-04] MEDS: Vitamins B Comp w/C TAB 1 TAB PO (08:57)
[2025-03-04] MEDS: Ascorbic Acid 500 MG TAB PO (08:57)
[2025-03-04] MEDS: Aspirin 81 MG CHEW PO (08:58)
[2025-03-04] MEDS: Rosuvastatin 20 MG TAB PO (08:58)
[2025-03-04] MEDS: Cholecalciferol (Vitamin D3) 1,000 UNIT TAB 2000 UNITS PO (08:58)
[2025-03-04] MEDS: Losartan 50 MG TAB PO (08:58)
--- NOTE | 2025-03-04 11:08 | DSE_ITS ---
Date of service: 03/04/25 Time of Service: 11:08 DS: Diagnosis Discharge Diagnosis (1) Sepsis: Status: Acute (2) Leukocytosis: Status: Acute (3) Dehydration: Status: Acute (4) CVA (cerebral vascular accident): Status: Chronic (5) S/P TAVR (transcatheter aortic valve replacement): Status: Acute (6) HTN (hypertension): Status: Chronic Discharge Plan Disposition Patient Disposition: Home Condition: Improving Discharge Details Reason For Visit: leukocytosis,dehydration, profuse diarrhea, nausea Admit Date/Time: 03/03/25 09:54 Admit Provider: Xu Cheema Attending Provider: Xu Cheema Primary Care Provider: Umesh Covarrubias [facility] Course Hospital Course: This 84 years old male with past medical history of TAVR bioprosthetic, hernia repair, diverticulosis, GERD, hypertension, hyperlipidemia, right-sided hand wrist surgery this week presented to the ED at [facility] with ongoing profuse watery brown diarrhea up to 15 episodes overnight , nausea and vomiting. Patient reporting eating jackson on his way from [facility] 2 days ago and links this to his symptoms. Work-up was positive for leukocytosis,BUN 39 with near normal creatinine w/o STACY, c-diff negative, The patient was normtensive with a HR above 90, and afebrile. The patient was admitted to the medical surgical service for sepsis, dehydration, nausea, vomitting, diarrhea. Overnight he remained hemodynamically stable. He remained afebrile. Diet advanced his symptoms improved. He was tolerating a regular diet and requesting discharge to home. He is being discharged to home with no new services he can resume his usual medications as prescribed. He was advised to return sooner for new or worsening symptoms Home Meds and New Rx's Prescriptions: Continued aspirin 81 mg capsule 81 mg PO DAILY lorazepam 1 mg tablet 1 mg PO QHS PRN (Reason: insomnia/back spasms) Qty: 30 2RF losartan 50 mg tablet 50 mg PO DAILY Qty: 90 3RF Rx Instructions: pt stopped and then restarted this me on his own 10/13/21 cc pantoprazole 40 mg tablet,delayed release (DR/EC) 40 mg PO BID Qty: 180 3RF polyethylene glycol 3350 [Miralax] 17 gram/dose powder 17 g PO DAILY PRN naloxone [Narcan] 4 mg/actuation spray,non-aerosol 4 mg intranasal Q2M Qty: 2 3RF Rx Instructions: spray 1 dose into ONE nostril; alternate nostrils w each dose until help arrives oxycodone-acetaminophen 5-325 mg tablet 1 tab PO Q4H PRN Patient Comments: TAKE 1 TABLET BY MOUTH EVERY 4 TO 6 HOURS NEEDED triamcinolone acetonide 0.025 % cream 1 applic TOPICAL BID PRN Patient Comments: APPLY A THIN LAYER TOPICALLY TO RASH TWICE DAILY UNTIL CLEAR THEN STOP rosuvastatin 20 mg tablet 20 mg PO DAILY Patient Comments: TAKE 1 TABLET BY MOUTH DAILY ascorbic acid (vitamin C) [C-500] 500 mg tablet extended release 500 mg PO DAILY cholecalciferol (vitamin D3) 50 mcg (2,000 unit) capsule 2,000 unit PO DAILY vitamin B complex Capsule 1 cap PO DAILY Patient Comments: PT not taking coenzyme Q10 [Co Q-10] 100 mg Capsule 300 mg PO DAILY Probiotic 3 billion cell Capsule 3,000 mmu cells PO DAILY Discharge Instructions Instructions: Diarrhea, Adult ED Additional Instructions: continue usual medications Stand Alone Forms: Nursing Discharge Form Referrals: Umesh Covarrubias DO [Primary Care Provider, Medicine] Referral Note: Please call the office to make a hospital follow up within 7- 10 days Activity:: Activity as Tolerated Equipment/Supplies:: No Equipment Needed Diet:: As Tolerated Discharge Orders Discharge Orders: Discharge Order (Routine); Ordered 03/04/25 Ordered By: Jojo Luna Discharge Data Discharge Date/Time-TO BE ENTERED AT DEPARTURE: 03/04/25 12:51 DS: Summary Time Spent with Patient providing and/or coordinating discharge services: Less than 30 minutes Status at Discharge Functional status at discharge: independent ambulation Overall status at discharge: patient is progressing back to baseline Mental Status: mental status grossly normal Speech and Movement: speech and movement normal Mood: congruent mood Affect: normal affect Exam Narrative Exam Narrative: Well-appearing male stated age in no acute distress head is atraumatic eyes nonicteric noninjected oral mucosa is slightly dry neck full range of motion no JVD cardiovascular regular rate and rhythm respirations even and unlabored abdomen is distended soft nontender moves all extremities equally no peripheral edema neurologic he is awake alert oriented no focal deficits psychiatric appropriate mood and affect Psych Mental Status: mental status grossly normal Speech and Movement: speech and movement normal Mood: congruent mood Affect: normal affect DS: Data Vitals/I&O Vitals and I&O: Vital Signs Temperature 36.7 C 03/04/25 08:20 Temperature Source Temporal Artery Scan 03/04/25 08:20 Pulse 80 03/04/25 08:20 Respiratory Rate 17 03/04/25 08:20 Respiratory Effort Normal, Non-Labored 03/03/25 11:28 Respiratory Depth Normal 03/03/25 11:28 Respiratory Pattern Normal 03/03/25 11:28 Blood Pressure 132/74 03/04/25 08:20 Blood Pressure Mean 93 03/04/25 08:20 Blood Pressure Position Sitting 03/03/25 06:54 Pulse Oximetry 94 03/04/25 08:20 Oxygen Delivery Method Room Air 03/04/25 08:20 Oxygen Flow Rate 0 03/04/25 08:20 Pain Level 0 03/04/25 08:20 Intake & Output 03/03/25 03/03/25 03/04/25 11:59 23:59 11:59 Intake Total 1010 / 1010 Output Total 50 / 50 250 / 250 Balance 1010 / 960 -50 / 960 -250 / -250 Weight 68.991 kg Intake: IV 1010 / 1010 Output: Urine 50 / 50 250 / 250 Other: Urine Color Yellow Yellow Urine Appearance Clear Clear Clear Urine Odor Normal Stool Size Smear Moderate Stool Characteristics Formed Formed # Bowel Movements 5 Data Completed and Pending Labs on day of discharge: Labs from last 24 hours 03/03/25 07:40 Procalcitonin < 0.10 PFSH All Active Problems (Updated 03/03/25 @ 18:03 by Mary Jane Freeman APRN) S/P TAVR (transcatheter aortic valve replacement) (Acute) CVA (cerebral vascular accident) (Chronic) Sepsis (Acute) Acute dehydration (Acute) Diarrhea (Acute) Dehydration (Acute) Leukocytosis (Acute) On deep vein thrombosis (DVT) prophylaxis (Acute) Insomnia (Acute) Globus sensation (Acute) Memory loss (Acute) Ulcer of right foot with fat layer exposed (Acute) Pain in left foot (Acute) Mechanical low back pain (Acute) Right sided abdominal pain (Acute) Pain disorder associated with psychological and physical factors (Acute) Lumbar spondylosis (Acute) Post-laminectomy syndrome (Acute) Poor appetite (Acute) COVID-19 (Acute) Chronic headache (Acute) Orthostatic hypertension (Acute) Chronic rhinitis (Acute) Rib fracture (Acute) Constipation by delayed colonic transit (Acute) BLANCO (dyspnea on exertion) (Acute) Other idiopathic scoliosis, thoracolumbar region (Acute) Acquired hammertoes of both feet (Acute) Nasal congestion (Acute) Pharyngitis (Acute) BPH w urinary obs/LUTS (Acute) Thyroiditis (Acute) Excessive cerumen in both ear canals (Acute) Chronic hyponatremia (Acute) Bronchomalacia (Acute) Stage III chronic kidney disease (Acute) Dx necessary for at-risk foot care with Podiatry Diverticulitis (Chronic) GERD (gastroesophageal reflux disease) (Chronic) HTN (hypertension) (Chronic) Hypercholesterolemia (Acute) Dizziness and giddiness (Acute) Malaise and fatigue (Acute) Cerebrovascular disease (Acute) Aortic valve disorder (Acute) Prostate cancer (Chronic) Diverticular disease of colon (Acute) Iron deficiency anemia (Acute) Depressive disorder (Acute) Headache (Acute) Chronic pansinusitis (Acute) Chronic cough (Acute) White coat syndrome with hypertension (Chronic) Tests in the 120s at home Cough (Acute) per Nikki 02/10/2020 started Breo inhaler 03/02/20 F/U with Dr Jordan, next ov 04/06/20 Hip osteoarthritis (Acute) Obstructive sleep apnea (Chronic ~2017) Moderate-PAP therapy H/O endoscopy (Chronic) 11/2020 Sinusitis, chronic 11/04/21 [place] low grade esophageal ulcer, 2 cm Hiatal Hernia Acute dyspnea (Acute) Insomnia (Chronic) Sleep Clinic. 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) Onychomycosis (Acute 04/23/22) History of hemoptysis (Acute) Stenosis of carotid artery (Acute) 05/22/22 [facility] Vascular Arteriosclerosis of left carotid artery (Acute) 05/22/22 Vascular Eczema (Chronic) start narrow band UVB bid at [facility] History of vascular surgery (Chronic) Stenting of L internal carotid artery, 06/28, [facility], started plavix Nail dystrophy (Acute) Corns and callosities (Acute) Left hip pain (Acute) Impacted cerumen, bilateral (Acute) Conductive hearing loss, external ear (Acute) Long-term current use of proton pump inhibitor therapy (Acute) Sacral back pain (Acute) referred to Spine Clinic per note 01/02/23 [facility] Osteopenia (Acute) Syncope (Chronic) Syncope (Chronic) Spondylolisthesis at L4-L5 level (Acute) Medical History History of pyloric stenosis as a child Surgical History H/O lumbosacral spine surgery H/O laminectomy (07/17/23) [facility] Bilateral laminectomy, medial facetectomy, foraminotomy L4-5; Posterior instrumentation L4-5; Posterolateral arthrodesis L4-5; Application of local autograft; Application of allograft morselized History of carotid endarterectomy 2020 H/O colonoscopy (~11/04/21) 11/04/21 Dr Tyler History of colon resection H/O aortic valve replacement History of tonsillectomy H/O shoulder surgery H/O hemorrhoidectomy History of hernia repair Family History Father Tuberculosis Mother Breast cancer Heart disease Sister Cancer Heart disease Hypertension Social History Smoking/Tobacco Use Status: Former Tobacco Use Quit Date: 09/07/1964 Pack- years: 40 Tobacco: How many years used: 14 Smoking risk assessment performed?: Yes Alcohol Intake: current Alcohol Intake frequency: 0-2 drinks per day Alcohol type: wine Drug use: Never Substance use type: does not use Adopted: No Caregiver/Support person: No Foster care: No Household members: spouse Housing: house Number of Children: 1 Education Level: college Do you need help understanding health information?: Never 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 Pets and animals: No Sexually active: Yes Do you think of yourself as: straight/heterosexual Current gender identity: male What is your relationship status?: How often do you talk on the phone with friends or family?: three or more times per week How often do you get together with friends or relatives?: never How often do you attend mandaen or quaker services?: decline to answer Do you belong to any clubs or organized social groups?: no Panel score (0-1 are the most socially isolated patients): 2 What type of physical activity do you participate in: other Details: 2nd Degree Vice [employer] Improvement, Shalini Duration: 60-90 minutes/day Frequency: 1-2 times per week Seatbelt use: always Drive intox or ride w/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
== END 2025-03-04 12:51 | disposition home or self-care (01) ==
LOC: ER 09:54 → MS 10:48
PROVIDERS: Nurse Practitioner Acute Care; Admitting Provider Family Medicine; Emergency Provider Student in an Organized Health Care Education/Training Program; PCP Family Medicine; Responsible Provider Nurse Practitioner Acute Care; Visit Provider Family Medicine
DX: A41.9 Sepsis, unspecified organism (principal); E86.0 Dehydration; D72.829 Elevated white blood cell count, unspecified; R11.2 Nausea with vomiting, unspecified; R19.7 Diarrhea, unspecified; Z79.899 Other long term (current) drug therapy; K21.9 Gastro-esophageal reflux disease without esophagitis; E78.00 Pure hypercholesterolemia, unspecified; Z86.73 Personal history of transient ischemic attack (TIA), and cerebral infarction without residual deficits; K57.90 Diverticulosis of intestine, part unspecified, without perforation or abscess without bleeding; N18.30 Chronic kidney disease, stage 3 unspecified; I12.9 Hypertensive chronic kidney disease with stage 1 through stage 4 chronic kidney disease, or unspecified chronic kidney disease; K59.01 Slow transit constipation; N40.1 Benign prostatic hyperplasia with lower urinary tract symptoms; Z95.2 Presence of prosthetic heart valve; N13.8 Other obstructive and reflux uropathy; E87.1 Hypo-osmolality and hyponatremia; I67.9 Cerebrovascular disease, unspecified; R05.9 Cough, unspecified; G47.33 Obstructive sleep apnea (adult) (pediatric); G47.61 Periodic limb movement disorder; R41.3 Other amnesia
CPT/HCPCS: 00123; 80053; 84145; 87015; 87269; 87272; 87505; 96361; 96374; 99285; 83735; 85025; 99223; 99238; G0378; J2405

== ENCOUNTER 2025-03-22 16:58 | Observation (INO) | payer MEDICARE, OTHER, SELFPAY ==
[2025-03-22] VITALS (44 sets, daily range): BP systolic 126–136; BP diastolic 33–52; PULSE 65–80; RESP 10–25; TEMP 36.3–37.1; O2SAT 93–98
--- NOTE | 2025-03-22 17:00 | RT.EKG_ITS ---
APPROVED REPORT Exam: Resting ECG Reason for Exam: chest pain/sob/swollen ankles Patient Location: E HR:74 bpm ECG Measurements Heart Rate 74 AXIS NJ 173 P 31 QRSd 87 QRS 56 QT 386 T 61 QTc 429 Conclusion Sinus rhythm...normal P axis, V-rate 60- 99 Ventricular premature complex...V complex w/ short R-R interval Consider anteroseptal infarct...Q >30mS, dimin R, V1-V2
--- NOTE | 2025-03-22 17:23 | ED.GENADUL_ITS ---
Discharge Plan Disposition Patient Disposition: Admit to [facility] Condition: Improving Discharge Details Clinical Impression: CHF (congestive heart failure) Admit Date/Time: 03/22/25 23:08 Admit Provider: Andre Willard Attending Provider: Andre Willard Primary Care Provider: Umesh Covarrubias ED Provider: Alexis Stout Discharge Data Discharge Date/Time-TO BE ENTERED AT DEPARTURE: 03/22/25 23:32 HPI General Date/Time Provider Initiated Documentation: 03/22/25 17:11 . HPI Narrative: Patient presents to the emergency department complaining of increased shortness of breath last week. Also reports lower extremity swelling. Stated that his primary care physician decreased his blood pressure medication due to low blood pressure. Denies fever chills reports cough nonproductive sputum denies any chest pain Related Data Home Medications ?Medication ?Instructions ?Recorded ?Confirmed coenzyme Q10 100 mg capsule (Co 300 mg PO DAILY 03/22/25 Q-10) lactobacillus combination no.4 3 3,000 mmu cells PO DA GEMA 09/03/19 03/22/25 billion cell capsule (Probiotic) vitamin B complex 1 cap PO DAILY 09/03/1903/07 aspirin 81 mg capsule 81 mg PO DAILY 12/05/2103/07 polyethylene glycol 3350 17 17 g PO DAILY PRN 12/21/23 03/22/25 gram/dose oral powder (Miralax) pantoprazole 40 mg tablet,delayed 40 mg PO BID #180 ta bs 02/14/25 03/22/25 release ascorbic acid (vitamin C) 500 mg 500 mg PO DAILY 03/0303/22/25 tablet,extended release (C-500) cholecalciferol (vitamin D3) 50 2,000 unit PO DAILY 03/22/25 mcg (2,000 unit) capsule rosuvastatin 20 mg tablet 20 mg PO DAILY 03/03/2503/07 triamcinolone acetonide 0.025 % 1 applic topical BID P RN 03/03/25 03/22/25 topical cream lorazepam 1 mg tablet 1 mg PO QHS PRN insomnia/gladys k 03/16/25 03/22/25 spasms #30 tabs astragalus root 470 mg capsule 470 mg PO BID 03/22/25 03/22/25 burdock root PO BID 03/22/25 km alvarez See Rx Instructions PO .COMP JULY 03/22/25 03/22/25 lycopene 10 mg capsule 20 mg PO DAILY 03/22/2503/07 marshmallow root 480 mg capsule 2,000 mg PO BID 03/22/25 tumeric 03/22/25 furosemide 40 mg tablet (Lasix) 40 mg PO DAILY #30 tab s 03/23/25 Previous Rx's ?Medication ?Instructions ?Recorded pantoprazole 40 mg tablet,delayed 40 mg PO BID #180 ta bs 02/14/25 release lorazepam 1 mg tablet 1 mg PO QHS PRN insomnia/gladys k 03/16/25 spasms #30 tabs furosemide 40 mg tablet (Lasix) 40 mg PO DAILY #30 tab s 03/23/25 Allergies Allergy/AdvReac Type Severity Reaction Status Date / Time metronidazole Allergy Intermediate Skin Rash, Verified 03/22/25 18:08 swelling, itchy sulfamethoxazole (From Allergy turns red Verified 03/22/25 18:08 Bactrim) trimethoprim (From Bactrim) Allergy turns red Verified 03/22/25 18:08 ropinirole AdvReac Severe insomina, Verified 03/22/25 18:08 weakness, intense fatigue zolpidem (From Ambien) AdvReac sleep Verified 03/22/25 18:08 walk General Stated Complaint: SOB ANIBAL: 3 Review of Systems Narrative: Review of Systems: Constitutional: No fevers, chills, sweats Eye: No recent visual problems ENT: No ear pain, nasal congestion, sore throat Cardiovascular: No Chest pain, palpitations, syncope Gastrointestinal: No nausea, vomiting, diarrhea Genitourinary: No hematuria Bang/Lymph: Negative for bruising tendency, swollen lymph glands Endocrine: Negative for excessive thirst, excessive hunger Musculoskeletal: No back pain, neck pain, joint pain, muscle pain, decreased range of motion Integumentary: No rash, pruritus, abrasions Neurologic: Alert & oriented X 4 Psychiatric: No anxiety, depression Exam Narrative Exam Narrative: Exam; vitals signs as reported above normal Constitutional; In no acute distress, afebrile General: cooperative, healthy appearing, comfortable and no acute distress HEENT: Head: normal to inspection, no palpable skull fracture and normocephalic atraumatic Eyes: : appearance normal, both eyes and all related structures EOM intact bilaterally Pupils: PERRL : conjunctiva normal Direct ophthalmoscopy: normal light reflex, normal conjunctiva, normal visual acuity Ears: Normal TM, normal external canal Nose: normal no rhinorreha Neck no JVD, supple non tender Neck: normal visual inspection, full ROM and no lymphadenopathy Chest: normal inspection of the chest Respiratory : normal respiratory effort and able to speak in complete sentences no wheezing bilateral rales up to the scapula Cardio Rate: regular rate, rhythm: regular rhythm normal heart sounds S1 and S2 no murmurs, gallops, or rubs GI : normal to inspection, normal bowel sounds, soft, non tender, non distended, no organomegaly Back/Spine/ no CVA tenderness Thoracic/Lumbar Spine: no tenderness or deformities Skin no rashes or lesions Neuro: patient alert oriented x 4 and no meningeal signs, Cranial Nerves: CN's II-XI intact bilaterally, Cognition: normal cognition, Speech: speech normal, Gait: normal gait, Depp tendon reflexes normal 2+ muscle strength 5/5 bilaterally Extremities, 2+ pitting edema, full range of motion, normal strength Course Vital Signs Vital signs: Vital Signs Temperature 37.1 C 03/22/25 17:04 Pulse 75 03/22/25 17:04 Respiratory Rate 18 03/22/25 17:04 Blood Pressure 136/52 L 03/22/25 17:04 Pulse Oximetry 95 03/22/25 17:04 Temperature 37.1 C 03/22/25 17:04 Temperature Source Tympanic 03/22/25 17:04 Pulse 75 03/22/25 17:04 Respiratory Rate 18 03/22/25 17:04 Blood Pressure 136/52 L 03/22/25 17:04 Blood Pressure Position Sitting 03/22/25 17:04 Pulse Oximetry 95 03/22/25 17:04 Oxygen Delivery Method Room Air 03/22/25 17:04 Oxygen Flow Rate 0 03/22/25 17:04 Pain Level 0 03/22/25 17:04 Medical Decision Making MDM: Summary: Patient presented emergency department with increased dyspnea and lower extremity swelling. Patient has a history of an aortic valve replacement done 13 years ago and on exam he has got rales in both lung lockhart. X-ray does show bilateral infiltrates BNP which was low now it is almost 1500 and the POCUS cardiac examination shows a dilated noncollapsible IVC with most likely impaired relaxation and diastolic dysfunction and good systolic function. Patient was given Lasix 20 mg with diuresis and will be admitted to the hospital for further cardiology evaluation for congestive heart failure Data Review Analysis All the data on this patient was reviewed by me including laboratory and imaging studies as well as bedside studies performed by me Independent review of Studies Imaging POCUS as reported above chest x-ray showing bilateral infiltrates Lab: Elevated BNP Risk Stratification: Patient with new onset heart failure most likely diastolic who will need to be admitted for diuresis and further work Differential Diagnosis: 1. CHF 2. Pneumonia 3. Noncardiogenic pulmonary edema 4. 5. Consultants: Shared disposition: Patient and understand disposition will follow accordingly and agree for the admission Impression: Medical Records Medical records reviewed: Yes I reviewed the patient's medical records. Lab Data Lab results reviewed: Yes I reviewed the patient's lab results. ECG Data Attestation: I personally reviewed and interpreted this ECG (s) as follows: Prior ECG tracings: not available for review Interpretation: Heart rate 78 normal sinus rhythm no acute ST-T changes PFSH All Active Problems (Updated 03/22/25 @ 22:23 by Andre Willard) Hyperlipidemia (Chronic) CHF (congestive heart failure) (Chronic) CHF (congestive heart failure) (Acute) S/P TAVR (transcatheter aortic valve replacement) (Chronic) CVA (cerebral vascular accident) (Chronic) Sepsis (Acute) Acute dehydration (Acute) Diarrhea (Acute) Dehydration (Acute) Leukocytosis (Acute) Insomnia (Acute) Globus sensation (Acute) Memory loss (Acute) Ulcer of right foot with fat layer exposed (Acute) Pain in left foot (Acute) Mechanical low back pain (Acute) Right sided abdominal pain (Acute) Pain disorder associated with psychological and physical factors (Acute) Lumbar spondylosis (Acute) Post-laminectomy syndrome (Acute) Poor appetite (Acute) COVID-19 (Acute) Chronic headache (Acute) Orthostatic hypertension (Acute) Chronic rhinitis (Acute) Rib fracture (Acute) Constipation by delayed colonic transit (Acute) BLANCO (dyspnea on exertion) (Acute) Other idiopathic scoliosis, thoracolumbar region (Acute) Acquired hammertoes of both feet (Acute) Nasal congestion (Acute) Pharyngitis (Acute) BPH w urinary obs/LUTS (Acute) Thyroiditis (Acute) Excessive cerumen in both ear canals (Acute) Chronic hyponatremia (Acute) Bronchomalacia (Acute) Stage III chronic kidney disease (Chronic) Dx necessary for at-risk foot care with Podiatry Diverticulitis (Chronic) GERD (gastroesophageal reflux disease) (Chronic) HTN (hypertension) (Chronic) Hypercholesterolemia (Acute) Dizziness and giddiness (Acute) Malaise and fatigue (Acute) Cerebrovascular disease (Acute) Aortic valve disorder (Acute) Prostate cancer (Chronic) Diverticular disease of colon (Acute) Iron deficiency anemia (Acute) Depressive disorder (Acute) Headache (Acute) Chronic pansinusitis (Acute) Chronic cough (Acute) White coat syndrome with hypertension (Chronic) Tests in the 120s at home Cough (Acute) per Nikki 02/10/2020 started Breo inhaler 03/02/20 F/U with Dr Jordan, next ov 04/06/20 Hip osteoarthritis (Acute) Obstructive sleep apnea (Chronic ~2017) Moderate-PAP therapy H/O endoscopy (Chronic) 11/2020 Sinusitis, chronic 11/04/21 [place] low grade esophageal ulcer, 2 cm Hiatal Hernia Acute dyspnea (Acute) Insomnia (Chronic) Sleep Clinic. 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) Onychomycosis (Acute 04/23/22) History of hemoptysis (Acute) Stenosis of carotid artery (Ac[place] [facility] [place] Arteriosclerosis of left carotid artery (Acute) 05/22/22 Vascular Eczema (Chronic) start narrow band UVB bid at [facility] History of vascular surgery (Chronic) Stenting [place] L internal carotid artery[place] [facility] [place] plav[place] Nail dystrophy (Acute) Corns and callosities (Acute) Left hip pain (Acute) Impacted cerumen, bilateral (Acute) Conductive hearing loss, external ear (Acute) Long-term current use of proton pump inhibitor therapy (Acute) Sacral back pain (Acute) referred to Sp[facility] per [place]02[place] [facility] [place]openia (Acute) Syncope (Chronic) Syncope (Chronic) Spondylolisthesis at L4-L5 level (Acute) Medical History History of pyloric stenosis as a child Surgical History H/O lumbosacral spine surgery H/O laminectomy (07/17/23) [facility] Bilateral laminectomy, medial facetectomy, foraminotomy L4-5; Posterior instrumentation L4-5; Posterolateral arthrodesis L4-5; Application of local autograft; Application of allograft morselized History of carotid endarterectomy 2020 H/O colonoscopy (~11/04/21) 11/04/21 Dr Tyler History of colon resection H/O aortic valve replacement History of tonsillectomy H/O shoulder surgery H/O hemorrhoidectomy History of hernia repair Family History Father Tuberculosis Mother Breast cancer Heart disease Sister Cancer Heart disease Hypertension Social History Smoking/Tobacco Use Status: Former Tobacco Use Quit Date: 09/07/1964 Pack- years: 42 Tobacco: How many years used: 14 Smoking risk assessment performed?: Yes Alcohol Intake: current Alcohol Intake frequency: 0-2 drinks per day Alcohol type: wine and hard liquor Drug use: Never Substance use type: does not use Adopted: No Caregiver/Support person: No Foster care: No Household members: spouse Housing: house Number of Children: 1 Education Level: college Do you need help understanding health information?: Never 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 Pets and animals: No Sexually active: Yes Do you think of yourself as: straight/heterosexual Current gender identity: male What is your relationship status?: How often do you talk on the phone with friends or family?: three or more times per week How often do you get together with friends or relatives?: never How often do you attend roman catholic or zoroastrian services?: decline to answer Do you belong to any clubs or organized social groups?: no Panel score (0-1 are the most socially isolated patients): 2 What type of physical activity do you participate in: other Details: 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 Duration: 60-90 minutes/day Frequency: 1-2 times per week Seatbelt use: always Drive intox or ride w/intox 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 Working smoke detector in home: Yes Carbon monox detector in home: Yes Do you feel safe at home: Yes Do you feel safe in your relationship?: Yes POCUS Exam (ED) Limited Cardiac Exam DATE OF EXAM: 03/22/25 TIME OF EXAM: 18:30 PROVIDER THAT PERFORMED THE STUDY: Alexis Stout REASON FOR EXAM: Dyspnea VISUALIZED STRUCTURES: Four Chambers, Left atrium, Left ventricle, LVOT, Right atrium, Right ventricle, Aortic valve, Mitral valve, Interventricular septum and IVC VIEW OBTAINED: Apical 4-Chamber, Parasternal long-axis, Parasternal short-axis and Subxiphoid PERTINENT FINDINGS/IMPRESSION: IVC inspiratory collapsability (Decreased IVC collapsibility) and Plethoric IVC DIFFERENTIAL DIAGNOSES: Good systolic function. Impaired relaxation compatible with diastolic dysfunc tion Exam complete Limited Thoracic Lung Exam DATE OF EXAM: 03/22/25 TIME OF EXAM: 18:35 PROVIDER THAT PERFORMED THE STUDY: Alexis Stout IS THIS A REPEAT EXAM DURING THIS ENCOUNTER: No REASON FOR EXAM: Hypoxia VISUALIZED STRUCTURES: right anterior, left anterior, right lateral and left lateral PERTINENT FINDINGS/IMPRESSION: B-lines/left side and B-lines/right side DIFFERENTIAL DIAGNOSES: Cardiogenic versus noncardiogenic pulmonary edema Exam complete
--- NOTE | 2025-03-22 18:14 | DI.RAD_ITS ---
Exam(s) XR CHEST 1V IN DI DEPT EXAM: XR CHEST 1V IN DI DEPT CLINICAL HISTORY: SOB TECHNIQUE: 2D digital imaging was performed of the chest. One image was obtained. An AP view was obtained. COMPARISON: CR XR CHEST 1V IN DI DEPT from 03/30/2023 CR,XR XR CHEST 2V PA LATERAL from 01/28/2025 FINDINGS: MEDIASTINUM: Normal. HEART: Normal. PULMONARY VASCULATURE: Normal. LUNGS: There are chronic interstitial changes again seen in the lungs. No focal consolidating infiltrate is seen. PLEURAL SPACE: No pleural effusion or pneumothorax. BONE:Within normal limits for the patient's age. There is again seen a left reverse total shoulder arthroplasty. OTHER FINDINGS:Normal. IMPRESSION: No focal consolidating infiltrates are present. DATA REPOSITORY: RADIATION DOSE DELIVERED:
--- NOTE | 2025-03-22 18:15 | DI.CT_ITS ---
Exam(s) CT HEAD WO EXAM: CT HEAD WO CLINICAL HISTORY: confusion. TECHNIQUE: Imaging Protocol: Axial computed tomography images with coronal and sagittal reformatted images were created and reviewed COMPARISON: CT CT HEAD WO from 06/02/[address] HEAD WO from 06/06/2024 FINDINGS: Ventricles and Extra axial spaces: Normal in size and morphology for the patient's age. Hemorrhage: None. Cerebral parenchyma: There are areas of decreased attenuation in the white matter consistent with chronic microvascular ischemic disease. No acute mass effect is present. Midline shift: None. Brainstem/Cerebellum: Normal. Calvarium: Normal. Visualized Paranasal sinuses/Mastoids: Postsurgical changes are seen in the sinuses. Soft Tissues: Unremarkable. IMPRESSION: 1. No acute intracranial process. 2. The preliminary [facility] report was reviewed. RADIATION DOSE DELIVERED: 879.55mGy.cm Total DLP DATA REPOSITORY: All CT scans at this facility are submitted to the National Radiology Data Registry (NRDR) Dose Index Registry (DIR) with the [employer] (ACR). RADIATION OPTIMIZATION: All CT scans at this facility use at least one of these dose optimization techniques: automated exposure control; mA and/or kV adjustment per patient size (includes targeted exams where dose is matched to clinical indication); or iterative reconstruction.
[2025-03-22 19:07] LABS: RBC 4.17 10^6/uL (4.36-5.78); WBC 8.12 10^3/uL (4.4-10.8)
[2025-03-22 19:08] LABS: HCT 39.0 % (40.0-50.0); HGB 12.8 g/dL (13.5-17.5); Immature Grans % 0.4 %; MCH 30.7 pg (27.0-33.0); MCHC 32.8 % (32.0-36.0); MCV 94 fL (80-95); MPV 10.4 fL (8.0-11.0); Platelet Count 145 10^3/uL (130-400); RDW 13.0 % (11.8-14.1); RDW-SD 44.8 fL
[2025-03-22 19:22] LABS: AST 15 U/L (15-37); Albumin 3.1 g/dL (3.4-5.0); Alkaline Phosphatase 38 U/L (46-116); Anion Gap 10.3 mmol/L (3-11); BUN 20 mg/dL (7-18); Bilirubin, Total 0.6 mg/dL (0.2-1.0); CO2 20.7 mmol/L (21.0-32.0); Calcium 8.8 mg/dL (8.5-10.1); Chloride 101 mmol/L (98-107); Estimated GFR 41.70 (mL/min/1.73m2); Glucose 81 mg/dL (74-106); Potassium 4.5 mmol/L (3.5-5.1); Sodium 132 mmol/L (136-145); Total Protein 5.5 g/dL (6.4-8.2)
[2025-03-22 19:23] LABS: ALT 16 U/L (16-63); Magnesium 1.9 mg/dL (1.8-2.4); NT-proBNP 2180 pg/mL (<300); Troponin I 50 ng/L (<or=76)
[2025-03-22 19:24] LABS: INR 1.0 (0.9-1.1); Prothrombin Time 9.9 sec (9.1-11.1)
--- NOTE | 2025-03-22 20:22 | DI.[facility]_ITS ---
PROCEDURE INFORMATION: Exam: CT Head Without Contrast Exam date and time: 03/22/2025 7:44 PM Age: 84 years old Clinical indication: Other: Confusion TECHNIQUE: Imaging protocol: Computed tomography of the head without contrast. COMPARISON: CT HEAD WO 06/06/2024 12:50 PM FINDINGS: Brain: No acute intracranial abnormalities noted. Chronic periventricular small-vessel ischemic changes. Cerebral ventricles: No ventriculomegaly. Paranasal sinuses: Visualized sinuses are unremarkable. No fluid levels. Mastoid air cells: Visualized mastoid air cells are well aerated. Bones: Unremarkable. No acute fracture. Soft tissues: Unremarkable. Other findings: Bilateral medial antrectomies. IMPRESSION: 1. No acute intracranial abnormalities noted. 2. Chronic periventricular small-vessel ischemic changes. Dictated and Authenticated by: Getachew Mann MD. Orderin Argelia Espinoza MD
--- NOTE | 2025-03-22 20:24 | DI.[facility]_ITS ---
PROCEDURE INFORMATION: Exam: XR Chest Exam date and time: 03/22/2025 7:55 PM Age: 84 years old Clinical indication: Shortness of breath; Prior surgery; Surgery date: 6+ months; Surgery type: Shoulder replacement TECHNIQUE: Imaging protocol: Radiologic exam of the chest. Views: 1 view. COMPARISON: CR XR CHEST 2V PA LATERAL 01/28/2025 10:19 PM FINDINGS: Lungs: Interstitial markings are prominent unchanged from the prior study and could possibly represent changes of underlying fibrosis. No consolidating infiltrates. Bilateral lower lobe subsegmental atelectatic changes. Pleural spaces: Unremarkable. No pleural effusion. No pneumothorax. Heart/Mediastinum: Unremarkable. No cardiomegaly. Bones/joints: Unremarkable. IMPRESSION: 1. No acute infiltrates. 2. Prominent interstitial markings of the lungs unchanged in the prior study and could represent changes of mild underlying interstitial fibrosis. Dictated and Authenticated by: Getachew Mann MD. Orderin Argelia Espinoza MD
[2025-03-22] MEDS: Furosemide 20 MG/2 ML VIAL IVP (20:53)
--- NOTE | 2025-03-22 21:14 | W.PM.HP.N ---
Date of service: 03/22/25 Time of Service: 21:15 Assessment and Plan Assessment and plan (1) CHF (congestive heart failure): Start date: 03/22/25 Status: Acute Assessment and plan: This is an 84-year-old gentleman with history of hypertension and valve replacement for in the remote past presenting with new onset peripheral edema and slight air hunger for 3 to 4 days prior to admission. He does not watch his diet and is not on chronic diuretics. He did have an elevated BNP in the ED and POCUS did not reveal any B-lines with chest x-ray showing vascular congestion. The ED physician thought this was diastolic dysfunction. Patient will be admitted for IV diuretics and updated echocardiogram. His troponin is also be trended. Long-term he will follow-up with his alcoholism worker. He is a full code. (2) HTN (hypertension): Status: Chronic Assessment and plan: Recently having losartan's discontinued but may be reinitiated on treatment of hypertension which also treats CHF if confirmed. Follow-up with outpatient cardiology. 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 He did not have any auscultated murmur on exam. (4) Stage III chronic kidney disease: Status: Chronic Assessment and plan: This appears stable and will be trended while hospitalized. (5) Hyperlipidemia: Status: Chronic Assessment and plan: Continue statin therapy. Patient has no history of [place]. History of Present Illness History of Present Illness Chief Complaint: Shortness of breath with leg edema. Narrative: This is an 84-year-old male patient who has a history of TAVR with bioprosthetic valve replacement in the remote past without complications presenting to the ED with a 4 to 5-day history of peripheral edema and on the day of admission some shortness of breath. Chest x-ray in the ED and POCUS revealed acute CHF with the patient's BNP also elevated. It appeared to be diastolic dysfunction. ED provider performing POCUS. He did receive IV Lasix 20 mg and was admitted for IV diuresis. He recently did stop his losartan because of low blood pressure. He is active and stable with his cardiac disease. He has no previous history of CHF. He has no previous history of severe cardiac event. He is anxious to go home but is going to stay overnight for observation and trending labs including troponin which has been negative. He has no evidence of ischemic event. He also will have his echocardiogram updated. His other medical problems are stable. He is a full code. Review of Systems Narrative: 13 point review of systems otherwise unrevealing or stable. [facility] All Active Problems (Updated 03/22/25 @ 22:23 by Andre Willard) Hyperlipidemia (Chronic) CHF (congestive heart failure) (Chronic) CHF (congestive heart failure) (Acute) S/P TAVR (transcatheter aortic valve replacement) (Chronic) CVA (cerebral vascular accident) (Chronic) Sepsis (Acute) Acute dehydration (Acute) Diarrhea (Acute) Dehydration (Acute) Leukocytosis (Acute) Insomnia (Acute) Globus sensation (Acute) Memory loss (Acute) Ulcer of right foot with fat layer exposed (Acute) Pain in left foot (Acute) Mechanical low back pain (Acute) Right sided abdominal pain (Acute) Pain disorder associated with psychological and physical factors (Acute) Lumbar spondylosis (Acute) Post-laminectomy syndrome (Acute) Poor appetite (Acute) COVID-19 (Acute) Chronic headache (Acute) Orthostatic hypertension (Acute) Chronic rhinitis (Acute) Rib fracture (Acute) Constipation by delayed colonic transit (Acute) BLANCO (dyspnea on exertion) (Acute) Other idiopathic scoliosis, thoracolumbar region (Acute) Acquired hammertoes of both feet (Acute) Nasal congestion (Acute) Pharyngitis (Acute) BPH w urinary obs/LUTS (Acute) Thyroiditis (Acute) Excessive cerumen in both ear canals (Acute) Chronic hyponatremia (Acute) Bronchomalacia (Acute) Stage III chronic kidney disease (Chronic) Dx necessary for at-risk foot care with Podiatry Diverticulitis (Chronic) GERD (gastroesophageal reflux disease) (Chronic) HTN (hypertension) (Chronic) Hypercholesterolemia (Acute) Dizziness and giddiness (Acute) Malaise and fatigue (Acute) Cerebrovascular disease (Acute) Aortic valve disorder (Acute) Prostate cancer (Chronic) Diverticular disease of colon (Acute) Iron deficiency anemia (Acute) Depressive disorder (Acute) Headache (Acute) Chronic pansinusitis (Acute) Chronic cough (Acute) White coat syndrome with hypertension (Chronic) Tests in the 120s at home Cough (Acute) per Nikki 02/10/2020 started Breo inhaler 03/02/20 F/U with Dr Jordan, next ov 04/06/20 Hip osteoarthritis (Acute) Obstructive sleep apnea (Chronic ~2017) Moderate-PAP therapy H/O endoscopy (Chronic) 11/2020 Sinusitis, chronic 11/04/21 [place] low grade esophageal ulcer, 2 cm Hiatal Hernia Acute dyspnea (Acute) Insomnia (Chronic) Sleep Clinic. 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) Onychomycosis (Acute 04/23/22) History of hemoptysis (Acute) Stenosis of carotid artery (Acute) [place] [facility] [place] Arteriosclerosis of left carotid artery (Acute) 05/22/22 Vascular Eczema (Chronic) start narrow band UVB bid at [facility] History of vascular surgery (Chronic) Stenting of L internal carotid artery, 06[place]28, [facility] [place] started plavix Nail dystrophy (Acute) Corns and callosities (Acute) Left hip pain (Acute) Impacted cerumen, bilateral (Acute) Conductive hearing loss, external ear (Acute) Long-term current use of proton pump inhibitor therapy (Acute) Sacral back pain (Acute) referred to Spine Clinic per note 01/02/23 [facility] [place] Osteopenia (Acute) Syncope (Chronic) Syncope (Chronic) Spondylolisthesis at L4-L5 level (Acute) Medical History History of pyloric stenosis as a child Surgical History H/O lumbosacral spine surgery H/O laminectomy (07/17/23) [facility] Bilateral laminectomy, medial facetectomy, foraminotomy L4-5; Posterior instrumentation L4-5; Posterolateral arthrodesis L4-5; Application of local autograft; Application of allograft morselized History of carotid endarterectomy 2019 H/O colonoscopy (~11/04/21) 11/04/21 Dr Tyler History of colon resection H/O aortic valve replacement History of tonsillectomy H/O shoulder surgery H/O hemorrhoidectomy History of hernia repair Family History Father Tuberculosis Mother Breast cancer Heart disease Sister Cancer Heart disease Hypertension Social History Smoking/Tobacco Use Status: Former Tobacco Use Quit Date: 09/07/1964 Pack-years: 42 Tobacco: How many years used: 14 Smoking risk assessment performed?: Yes Alcohol Intake: current Alcohol Intake frequency: 0-2 drinks per day Alcohol type: wine and hard liquor Drug use: Never Substance use type: does not use Adopted: No Caregiver/Support person: No Foster care: No Household members: spouse Housing: house Number of Children: 1 Education Level: college Do you need help understanding health information?: Never 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 Pets and animals: No Sexually active: Yes Do you think of yourself as: straight/heterosexual Current gender identity: male What is your relationship status?: How often do you talk on the phone with friends or family?: three or more times per week How often do you get together with friends or relatives?: never How often do you attend methodist or mandaen services?: decline to answer Do you belong to any clubs or organized social groups?: no Panel score (0-1 are the most socially isolated patients): 2 What type of physical activity do you participate in: other Details: 2nd Degree Shalini Rodarte Duration: 60-90 minutes/day Frequency: 1-2 times per week Seatbelt use: always Drive intox or ride w/intox tour bus driver/guide: No Working smoke detector in home: Yes Carbon monox detector in home: Yes Do you feel safe at home: Yes Do you feel safe in your relationship?: Yes Meds Allergies and Home Medications Allergies Allergy/AdvReac Type Severity Reaction Status Date / Time metronidazole Allergy Intermediate Skin Rash, Verified 03/22/25 18:08 swelling, itchy sulfamethoxazole (From Allergy turns red Verified 03/22/25 18:08 Bactrim) trimethoprim (From Bactrim) Allergy turns red Verified 03/22/25 18:08 ropinirole AdvReac Severe insomina, Verified 03/22/25 18:08 weakness, intense fatigue zolpidem (From Ambien) AdvReac sleep Verified 03/22/25 18:08 walk Home Medications ?Medication ?Instructions ?Recorded ?Confirmed ?Type coenzyme Q10 100 mg capsule (Co 300 mg PO DAILY 09/03/19 03/22/25 History Q-10) lactobacillus combination no.4 3 3,000 mmu cells PO DAILY 09/03/19 03/22/25 History billion cell capsule (Probiotic) vitamin B complex 1 cap PO DAILY 09/03/19 03/22/25 History aspirin 81 mg capsule 81 mg PO DAILY 12/05/21 03/22/25 History polyethylene glycol 3350 17 17 g PO DAILY PRN 12/21/23 03/22/25 History gram/dose oral powder (Miralax) pantoprazole 40 mg tablet,delayed 40 mg PO BID #180 tabs 02/14/25 03/22/25 Rx release ascorbic acid (vitamin C) 500 mg 500 mg PO DAILY 03/03/25 03/22/25 History tablet,extended release (C-500) cholecalciferol (vitamin D3) 50 2,000 unit PO DAILY 03/03/25 03/22/25 History mcg (2,000 unit) capsule rosuvastatin 20 mg tablet 20 mg PO DAILY 03/03/25 03/22/25 History triamcinolone acetonide 0.025 % 1 applic topical BID PRN 03/03/25 03/22/25 History topical cream lorazepam 1 mg tablet 1 mg PO QHS PRN insomnia/back 03/16/25 03/22/25 Rx spasms #30 tabs astragalus root 470 mg capsule 470 mg PO BID 03/22/25 03/22/25 History burdock root PO BID 03/22/25 History hawthorn alvarez See Rx Instructions PO .COMPLEX 03/22/25 03/22/25 History lycopene 10 mg capsule 20 mg PO DAILY 03/22/25 03/22/25 History marshmallow root 480 mg capsule 2,000 mg PO BID 03/22/25 03/22/25 History tumeric 03/22/25 History furosemide 40 mg tablet (Lasix) 40 mg PO DAILY #30 tabs 03/23/25 Rx Exam Narrative Exam Narrative: General: Patient appears appropriate for age, alert and oriented x 3 and in no acute distress. He is very talkative. HEENT: Normocephalic, eyes with pupils equal and reactive to light symmetrically, extraocular movement intact and sclera anicteric. Oropharynx with moist Koza and good dentition. Neck: Supple without JVD. Back: Slightly kyphotic without CVA tenderness. Lungs: Occasional crackle at the bases otherwise clear to auscultation with no focalizing rales or rhonchi. No expiratory wheeze. Aeration. Heart: Regular rate and rhythm with no appreciable murmur or gallop. Patient does have a previous TAVR. Abdomen: Normal contour, soft and nontender to palpation with no palpable hepatosplenomegaly. Genitalia/rectal: Exam deferred. Extremities: Nonpitting edema over ankles and feet with improvement from description of peripheral edema upon admission through the ED. No clubbing or cyanosis. Good cap refill. Skin: Actinic changes of the sun exposed areas, rough texture, normal color, warm and dry. Neuro: Cranial nerves II through XII intact, no focal motor deficits and no tremor. Psych: Slightly anxious with normal mood. No abnormal thought processes. Remote and recent memory intact. Results Imaging Imaging Studies: Exam: XR Chest Exam date and time: 03/22/2025 7:55 PM Age: 84 years old Clinical indication: Shortness of breath; Prior surgery; Surgery date: 6+ months; Surgery type: Shoulder replacement TECHNIQUE: Imaging protocol: Radiologic exam of the chest. Views: 1 view. COMPARISON: CR XR CHEST 2V PA LATERAL 01/28/2025 10:19 PM FINDINGS: Lungs: Interstitial markings are prominent unchanged from the prior study and could possibly represent changes of underlying fibrosis. No consolidating infiltrates. Bilateral lower lobe subsegmental atelectatic changes. Pleural spaces: Unremarkable. No pleural effusion. No pneumothorax. Heart/Mediastinum: Unremarkable. No cardiomegaly. Bones/joints: Unremarkable. IMPRESSION: 1. No acute infiltrates. 2. Prominent interstitial markings of the lungs unchanged in the prior study and could represent changes of mild underlying interstitial fibrosis. Exam: CT Head Without Contrast Exam date and time: 03/22/2025 7:44 PM Age: 84 years old Clinical indication: Other: Confusion TECHNIQUE: Imaging protocol: Computed tomography of the head without contrast. COMPARISON: CT HEAD WO 06/06/2024 12:50 PM FINDINGS: Brain: No acute intracranial abnormalities noted. Chronic periventricular small-vessel ischemic changes. Cerebral ventricles: No ventriculomegaly. Paranasal sinuses: Visualized sinuses are unremarkable. No fluid levels. Mastoid air cells: Visualized mastoid air cells are well aerated. Bones: Unremarkable. No acute fracture. Soft tissues: Unremarkable. Other findings: Bilateral medial antrectomies. IMPRESSION: 1. No acute intracranial abnormalities noted. 2. Chronic periventricular small-vessel ischemic changes. Labs 03/23/25 06:34 03/23/25 06:37 Labs: Laboratory Results - last 24 hr 03/22/25 18:22 WBC 8.12 RBC 4.17 L Hgb 12.8 L Hct 39.0 L MCV 94 MCH 30.7 MCHC 32.8 RDW 13.0 Plt Count 145 MPV 10.4 Immature Gran % 0.4 Neutrophils % 63.1 Lymphocytes % 22.7 Monocytes % 8.3 Eosinophils % 5.0 Basophils % 0.5 Absolute Neutrophils 5.12 Absolute Lymphocytes 1.84 Absolute Monocytes 0.67 Absolute Eosinophils 0.41 Absolute Basophils 0.04 PT 9.9 INR 1.0 Sodium 132 L Potassium 4.5 Chloride 101 Carbon Dioxide 20.7 L Anion Gap 10.3 BUN 20 H Creatinine 1.6 H Est GFR (CKD-EPI 2020) 41.70 Glucose 81 Calcium 8.8 Magnesium 1.9 Total Bilirubin 0.6 AST 15 ALT 16 Alkaline Phosphatase 38 L Troponin I 50 NT-Pro-B Natriuret Pep 2180 H Total Protein 5.5 L Albumin 3.1 L Last Vital Signs Temp 37.1 C 03/22/25 17:04 Pulse 71 03/22/25 18:29 Resp 20 03/22/25 18:29 BP 136/52 L 03/22/25 17:04 Pulse Ox 94 03/22/25 18:29 PAWSS Have you Been Recently Intoxicated or Drunk Within the Last 30 days?: No Have you Ever Experienced Previous Episodes of Alcohol Withdrawal?: No Have you ever Experienced Withdrawal Seizures?: No Have you ever Experienced Delirium Tremens(DT)s?: No Have you ever undergone Alcohol Rehabilitation Treatment (i.e, inpt ot outpatient treatment programs)?: No Have you ever Experienced Blackouts?: No Have you ever Combined Alcohol with other Downers within the last 90 days?: No Have you ever Combined Alcohol with any other Substance of Abuse during the last 90 days?: No Positive Blood Alcohol level on Presentation? [PCS.BAL]: No Evidence of Increased Autonomic Activity (i.e. HR>120, tremor, sweating, agitation, nausea)?: No Result: 0 Time Spent Time spent with Patient: 55-74 minutes Time was spent: preparing to see the patient(eg.review tests), obtaining and/or reviewing separately otained hiistory, ordering medications,tests, procedures, referring, communicating with other health healthcare technician, indepentently interpreting results, counseling the patient and care coordination
--- NOTE | 2025-03-22 23:29 | W.PC.ACHO ---
Registration Status: REG ER Primary Language: Preferred Language: Armenian ED Information & Data Chief Complaint SOB 03/22/25 18:05 Chief Complaint SOB 03/22/25 17:04 Triage Note seen by PCP for a 03/22/25 17:04 follow up from last ER visit , BP medication was put on hold s/t low bp. Increased ankle swelling thursday/ thursday despite elevation. Increased sob/dizzy/chest pain w/exertion. No appetite , ate cereal/fruit/coffee at 10:30 and has not wanted anything since Medical / Surgical History (Last Reviewed 03/22/25 @ 22:18 by Andre Willard) History of pyloric stenosis as a child (Last Reviewed 03/22/25 @ 22:18 by Andre Willard) H/O lumbosacral spine surgery H/O laminectomy (07/17/23) History of carotid endarterectomy H/O colonoscopy (~11/04/21) History of colon resection H/O aortic valve replacement History of tonsillectomy H/O shoulder surgery H/O hemorrhoidectomy History of hernia repair Most Recent Vital Signs Temperature 37.1 C 03/22/25 17:04 Temperature Source Tympanic 03/22/25 17:04 Pulse 70 03/22/25 21:50 Pulse 73 03/22/25 22:00 Respiratory Rate 15 03/22/25 22:00 Respiratory Effort Short of Breath 03/22/25 18:29 Respiratory Depth Normal 03/22/25 18:29 Respiratory Pattern Normal 03/22/25 18:29 Blood Pressure 126/33 L 03/22/25 19:01 Blood Pressure Mean 67 03/22/25 19:01 Blood Pressure Position Sitting 03/22/25 17:04 Pulse Oximetry 97 03/22/25 21:50 Oxygen Delivery Method Room Air 03/22/25 18:29 Oxygen Flow Rate 0 03/22/25 17:04 Pain Level 0 03/22/25 18:29 Allergies metronidazole Allergy (Intermediate, Verified 03/22/25 18:08) Skin Rash, swelling, itchy sulfamethoxazole (From Bactrim) Allergy (Verified 03/22/25 18:08) turns red trimethoprim (From Bactrim) Allergy (Verified 03/22/25 18:08) turns red ropinirole Adverse Reaction (Severe, Verified 03/22/25 18:08) insomina, weakness, intense fatigue zolpidem (From Ambien) Adverse Reaction (Verified 03/22/25 18:08) sleep walk IV IV Catheter Type [Left Saline Lock Antecubital] IV Catheter Gauge [Left 18 Antecubital] Diagnostics 03/22/25 03/22/25 Range/Units 23:08 18:22 WBC 8.12 (4.4-10.8) 10^3/uL RBC 4.17 L (4.36-5.78) 10^6/uL Hgb 12.8 L (13.5-17.5) g/dL Hct 39.0 L (40.0-50.0) % MCV 94 (80-95) fL MCH 30.7 (27.0-33.0) pg MCHC 32.8 (32.0-36.0) % RDW 13.0 (11.8-14.1) % Plt Count 145 (130-400) 10^3/uL MPV 10.4 (8.0-11.0) fL Immature Gran % 0.4 % Neutrophils % 63.1 % Lymphocytes % 22.7 % Monocytes % 8.3 % Eosinophils % 5.0 % Basophils % 0.5 % Absolute Neutrophils 5.12 (1.2-6.7) 10^3/uL Absolute Lymphocytes 1.84 (1.2-3.4) 10^3/uL Absolute Monocytes 0.67 (0.1-0.8) 10^3/uL Absolute Eosinophils 0.41 (0.0-0.7) 10^3/uL Absolute Basophils 0.04 (0.0-0.2) 10^3/uL PT 9.9 (9.1-11.1) sec INR 1.0 (0.9-1.1) Sodium 132 L (136-145) mmol/L Potassium 4.5 (3.5-5.1) mmol/L Chloride 101 (98-107) mmol/L Carbon Dioxide 20.7 L (21.0-32.0) mmol/L Anion Gap 10.3 (3-11) mmol/L BUN 20 H (7-18) mg/dL Creatinine 1.6 H (0.70-1.30) mg/dL Est GFR (CKD-EPI 2020) 41.70 (mL/min/1.73m2) Glucose 81 (74-106) mg/dL Calcium 8.8 (8.5-10.1) mg/dL Magnesium 1.9 (1.8-2.4) mg/dL Total Bilirubin 0.6 (0.2-1.0) mg/dL AST 15 (15-37) U/L ALT 16 (16-63) U/L Alkaline Phosphatase 38 L (46-116) U/L Troponin I 50 (<or=76) ng/L NT-Pro-B Natriuret Pep 2180 H (<300) pg/mL Total Protein 5.5 L (6.4-8.2) g/dL Albumin 3.1 L (3.4-5.0) g/dL COVID-19 Source Pending SARS-CoV-2 (PCR) Pending Influenza Type A (PCR) Pending Influenza Type B (PCR) Pending RSV (PCR) Pending Intake and Output - 24 Hour Total 03/22/25 16:58 thru 03/22/25 22:09 Output Total 725 Balance -725 Weight 71.65 kg Output: Urine 525 Other 200 Other: Urine Color Yellow Urine Appearance Clear Comment neon yellow Falls Risk Assessment History of Falls Previous History 03/22/25 18:29 Contributing Factors Unstable,Impairments 03/22/25 18:29 Ambulatory Aids Independent 03/22/25 18:29 Tubes/Lines None 03/22/25 18:29 Gait Evaluation W/no contributing factors 03/22/25 18:29 Cognition Cognitive impairment 03/22/25 18:29 Fall Total Score 46 03/22/25 18:29 Level of Risk Moderate Risk 03/22/25 18:29 Problems (Last Reviewed 03/22/25 @ 22:18 by Andre Willard) Hyperlipidemia (Chronic) CHF (congestive heart failure) (Acute) S/P TAVR (transcatheter aortic valve replacement) (Chronic) Stage III chronic kidney disease (Chronic) HTN (hypertension) (Chronic) v v v v v v v v v Sending and/or Receiving Nurses: Please use comment section below to note any information pertinent to the patient hand-off not included above. Information / Comments: Alert and Oriented x 3, ambulates independently, saw PCP and BP was soft so stopped medications. Developed swollen ankles and feet, chest pain and shortness of breath and came to ER. BNP > 3000, lasix 20mg given. Report received from: Jeffery Leigh rn
[2025-03-23] MEDS: LORazepam 1 MG TAB PO (00:19)
[2025-03-23 00:52] LABS: TSH (W/Ref FT4) 0.61 uIU/mL (0.36-3.74); Troponin I 61 ng/L (<or=76)
[2025-03-23 04:35] VITALS: BP 115/40; PULSE 75; RESP 20; TEMP 36.5; O2SAT 95
[2025-03-23 07:02] LABS: HCT 41.0 % (40.0-50.0); HGB 14.0 g/dL (13.5-17.5); MCH 31.7 pg (27.0-33.0); MCHC 34.1 % (32.0-36.0); MCV 93 fL (80-95); MPV 10.6 fL (8.0-11.0); Platelet Count 141 10^3/uL (130-400); RBC 4.41 10^6/uL (4.36-5.78); RDW 12.9 % (11.8-14.1); RDW-SD 43.8 fL; WBC 8.45 10^3/uL (4.4-10.8)
[2025-03-23 07:42] LABS: ALT 18 U/L (16-63); AST 16 U/L (15-37); Albumin 3.1 g/dL (3.4-5.0); Alkaline Phosphatase 39 U/L (46-116); Anion Gap 11.5 mmol/L (3-11); BUN 20 mg/dL (7-18); Bilirubin, Total 0.6 mg/dL (0.2-1.0); CO2 20.5 mmol/L (21.0-32.0); Calcium 9.0 mg/dL (8.5-10.1); Chloride 103 mmol/L (98-107); Estimated GFR 48.95 (mL/min/1.73m2); Glucose 75 mg/dL (74-106); Magnesium 2.0 mg/dL (1.8-2.4); Potassium 3.8 mmol/L (3.5-5.1); Sodium 135 mmol/L (136-145); Total Protein 5.7 g/dL (6.4-8.2)
[2025-03-23] MEDS: Furosemide 40 MG/4 ML VIAL IVP (07:58)
[2025-03-23] MEDS: Normal Saline Flush 10 ML SYR IVP (07:58)
[2025-03-23] MEDS: Ascorbic Acid 500 MG TAB PO (07:58)
[2025-03-23] MEDS: Pantoprazole 40 MG TABCR PO (07:58)
[2025-03-23] MEDS: Cholecalciferol (Vitamin D3) 1,000 UNIT TAB 2000 UNITS PO (07:58)
[2025-03-23] MEDS: Aspirin 81 MG CHEW PO (07:58)
[2025-03-23 08:14] VITALS: BP 137/49; PULSE 71; RESP 15; TEMP 36.9; O2SAT 95
--- NOTE | 2025-03-23 09:20 | PDOC.CMIN ---
Date of service: 03/23/25 Time of Service: 09:20 Care Management Initial Assmt Initial Assessment Reason for Hospitalization: CHF Functional Status/Living Situation Town of Residence: [place], [place] Resides with: Spouse ( Tammie) Employment Status: Retired Medications Medication Management: No Issues/Barriers identified Advance Directives Advance Directives: Do you have an Advance Directive: Y 02/13/23, 10:09 AD On File at [facility]: Y 02/13/23, 10:09 Date Asked 02/05/25 02/13/25, 13:41 AD Date Reviewed 03/22/25 03/22/25, 17:01 COLST On File at [facility] COLST Date Scanned Code Status Resuscitation Status Full Code Insurance Coverage/Financial Issues Insurance: Medicare Cigna Supplement Care Team Visit Care Team Role Provider Type Daniel Wilson MD MD [facility] STAFF PHYSICIAN Umesh Covarrubias DO Primary Care Provider OSTEOPATHIC DOCTOR Alexis Stout MD Emergency Provider [facility] STAFF PHYSICIAN Andre Willard Admit Provider NON-[facility] STAFF PHYSICIAN Attending Provider Discharge Potential Discharge Needs: PCP F/U Appt Anticipated Barriers to Discharge: None Identified Patient/Family Education Needs: Review discharge instructions, discuss Ask Me Three Transportation: Private vehicle Plan: Anticipate Gustabo will be discharged home, possibly with new home health services, when medically cleared. He will follow up with community providers and plan of care and transport with family. CM will follow and continue to assess for discharge needs. Social Determinants of Health Screening Social Determinants of health last assessed in clinic: 03/22/25 Will the Patient Participate in the Screening?: Declined to provide Do you worry about having a steady place to live?: no Problems where you live: no known problems In the past 12 months, have you had to go without electric, gas, oil or water in your home?: no Has lack of transportation kept you from medical appointments or from doing things needed for daily living?: no Has anyone in your life made you feel unsafe or unsupported?: no How hard is it for you to pay for the very basics like food, housing, medical care, and heating? Would you say it is:: Not hard at all Do you want help finding or keeping work or a job?: I do not need or want help If for any reason you need help with day-to-day activities such as bathing, preparing meals, shopping, managing finances, etc., do you get the help you need?: I don?t need any help How often do you feel lonely or isolated from those around you?: Never Do you speak a language other than Sami at home?: No Does the patient want assistance with any of the above?: No PFSH All Active Problems (Updated 03/22/25 @ 22:23 by Andre Willard) Hyperlipidemia (Chronic) CHF (congestive heart failure) (Chronic) CHF (congestive heart failure) (Acute) S/P TAVR (transcatheter aortic valve replacement) (Chronic) CVA (cerebral vascular accident) (Chronic) Sepsis (Acute) Acute dehydration (Acute) Diarrhea (Acute) Dehydration (Acute) Leukocytosis (Acute) Insomnia (Acute) Globus sensation (Acute) Memory loss (Acute) Ulcer of right foot with fat layer exposed (Acute) Pain in left foot (Acute) Mechanical low back pain (Acute) Right sided abdominal pain (Acute) Pain disorder associated with psychological and physical factors (Acute) Lumbar spondylosis (Acute) Post-laminectomy syndrome (Acute) Poor appetite (Acute) COVID-19 (Acute) Chronic headache (Acute) Orthostatic hypertension (Acute) Chronic rhinitis (Acute) Rib fracture (Acute) Constipation by delayed colonic transit (Acute) BLANCO (dyspnea on exertion) (Acute) Other idiopathic scoliosis, thoracolumbar region (Acute) Acquired hammertoes of both feet (Acute) Nasal congestion (Acute) Pharyngitis (Acute) BPH w urinary obs/LUTS (Acute) Thyroiditis (Acute) Excessive cerumen in both ear canals (Acute) Chronic hyponatremia (Acute) Bronchomalacia (Acute) Stage III chronic kidney disease (Chronic) Dx necessary for at-risk foot care with Podiatry Diverticulitis (Chronic) GERD (gastroesophageal reflux disease) (Chronic) HTN (hypertension) (Chronic) Hypercholesterolemia (Acute) Dizziness and giddiness (Acute) Malaise and fatigue (Acute) Cerebrovascular disease (Acute) Aortic valve disorder (Acute) Prostate cancer (Chronic) Diverticular disease of colon (Acute) Iron deficiency anemia (Acute) Depressive disorder (Acute) Headache (Acute) Chronic pansinusitis (Acute) Chronic cough (Acute) White coat syndrome with hypertension (Chronic) Tests in the 120s at home Cough (Acute) per Nikki 02/10/2020 started Breo inhaler 03/02/20 F/U with Dr Jordan, next ov 04/06/20 Hip osteoarthritis (Acute) Obstructive sleep apnea (Chronic ~2017) Moderate-PAP therapy H/O endoscopy (Chronic) 11/2020 Sinusitis, chronic 11/04/21 LA low grade esophageal ulcer, 2 cm Hiatal Hernia Acute dyspnea (Acute) Insomnia (Chronic) Sleep Clinic. 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) Onychomycosis (Acute 04/23/22) History of hemoptysis (Acute) Stenosis of carotid artery (Acute) 05/22/22 [facility] Vascular Arteriosclerosis of left carotid artery (Acute) 05/22/22 Vascular Eczema (Chronic) start narrow band UVB bid at [facility] History of vascular surgery (Chronic) Stenting of L internal carotid artery, 06/28, [facility], started plavix Nail dystrophy (Acute) Corns and callosities (Acute) Left hip pain (Acute) Impacted cerumen, bilateral (Acute) Conductive hearing loss, external ear (Acute) Long-term current use of proton pump inhibitor therapy (Acute) Sacral back pain (Acute) referred to Spine Clinic per note 01/02/23 [facility] Osteopenia (Acute) Syncope (Chronic) Syncope (Chronic) Spondylolisthesis at L4-L5 level (Acute) Medical History History of pyloric stenosis as a child Surgical History H/O lumbosacral spine surgery H/O laminectomy (07/17/23) [facility] Bilateral laminectomy, medial facetectomy, foraminotomy L4-5; Posterior instrumentation L4-5; Posterolateral arthrodesis L4-5; Application of local autograft; Application of allograft morselized History of carotid endarterectomy 2019 H/O colonoscopy (~11/04/21) 11/04/21 Dr Tyler History of colon resection H/O aortic valve replacement History of tonsillectomy H/O shoulder surgery H/O hemorrhoidectomy History of hernia repair Family History Father Tuberculosis Mother Breast cancer Heart disease Sister Cancer Heart disease Hypertension Social History Smoking/Tobacco Use Status: Former Tobacco Use Quit Date: 09/07/1964 Pack-years: 42 Tobacco: How many years used: 14 Smoking risk assessment performed?: Yes Alcohol Intake: current Alcohol Intake frequency: 0-2 drinks per day Alcohol type: wine and hard liquor Drug use: Never Substance use type: does not use Adopted: No Caregiver/Support person: No Foster care: No Household members: spouse Housing: house Number of Children: 1 Education Level: college Do you need help understanding health information?: Never 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 Pets and animals: No Sexually active: Yes Do you think of yourself as: straight/heterosexual Current gender identity: male What is your relationship status?: How often do you talk on the phone with friends or family?: three or more times per week How often do you get together with friends or relatives?: never How often do you attend adventist or jew services?: decline to answer Do you belong to any clubs or organized social groups?: no Panel score (0-1 are the most socially isolated patients): 2 What type of physical activity do you participate in: other Details: 2nd Degree Shalini Rodarte Duration: 60-90 minutes/day Frequency: 1-2 times per week Seatbelt use: always Drive intox or ride w/intox company truck driver: No Working smoke detector in home: Yes Carbon monox detector in home: Yes Do you feel safe at home: Yes Do you feel safe in your relationship?: Yes
[2025-03-23 11:15] VITALS: BP 108/39; PULSE 70; RESP 15; TEMP 36.6; O2SAT 97
--- NOTE | 2025-03-23 11:39 | DSE_ITS ---
Date of service: 03/23/25 Time of Service: 11:39 DS: Diagnosis Discharge Diagnosis (1) CHF (congestive heart failure): Status: Acute (2) HTN (hypertension): Status: Chronic (3) S/P TAVR (transcatheter aortic valve replacement): Status: Chronic (4) Stage III chronic kidney disease: Status: Chronic (5) Hyperlipidemia: Status: Chronic Discharge Plan Disposition Patient Disposition: Home Condition: Improving Discharge Details Reason For Visit: Acute CHF Admit Date/Time: 03/22/25 23:08 Admit Provider: Andre Willard Attending Provider: Andre Willard Primary Care Provider: Umesh Covarrubias [place] [facility] Course Hospital Course: This is a 84-year-old gentleman who was admitted last night with shortness of breath with the diagnosis of CHF. Patient responded appropriately to diuretics and on the to be discharged home. Patient said he was completely asymptomatic. While he was in the hospital he did get a echocardiogram that has been done but not read. I have reviewed old echocardiograms from February 2024 which were reassuring. The patient does have a history of a bioprosthetic aortic valve which was done in 2012 but has not had any problems with this. I will discharge him on a short course of Lasix and I did discuss with the patient lifestyle modifications including decreasing salt intake to which she voiced understanding. At this point is unknown if the patient truly has congestive heart failure as his latest echocardiogram has not been read. If he does have congestive heart failure he will need goal-directed management in the outpatient setting. I am sending the patient home on Lasix 40 symptom relief. According to his chart he was recently stopped on his ARB for an unknown reason. Would consider KVNG versus ARB beta-blockade diuretic and an SGL T2 inhibitor at the discretion of his PCP Home Meds and New Rx's Prescriptions: New furosemide [Lasix] 40 mg tablet 40 mg PO DAILY Qty: 30 0RF Continued lorazepam 1 mg tablet 1 mg PO QHS PRN (Reason: insomnia/back spasms) Qty: 30 2RF aspirin 81 mg capsule 81 mg PO DAILY pantoprazole 40 mg tablet,delayed release (DR/EC) 40 mg PO BID Qty: 180 3RF polyethylene glycol 3350 [Miralax] 17 gram/dose powder 17 g PO DAILY PRN triamcinolone acetonide 0.025 % cream 1 applic TOPICAL BID PRN Patient Comments: APPLY A THIN LAYER TOPICALLY TO RASH TWICE DAILY UNTIL CLEAR THEN STOP rosuvastatin 20 mg tablet 20 mg PO DAILY Patient Comments: TAKE 1 TABLET BY MOUTH DAILY ascorbic acid (vitamin C) [C-500] 500 mg tablet extended release 500 mg PO DAILY cholecalciferol (vitamin D3) 50 mcg (2,000 unit) capsule 2,000 unit PO DAILY lycopene 10 mg capsule 20 mg PO DAILY Rx Instructions: administer after a meal astragalus root 470 mg capsule 470 mg PO BID burdock root PO BID Rx Instructions: 2 capsules BID orally; marshmallow root 480 mg capsule 2,000 mg PO BID hawthorn alvarez [Janeth Alvarez] See Rx Instructions PO .COMPLEX Rx Instructions: 1500 mg BID per orally; tumeric vitamin B complex Capsule 1 cap PO DAILY Patient Comments: PT not taking coenzyme Q10 [Co Q-10] 100 mg Capsule 300 mg PO DAILY Probiotic 3 billion cell Capsule 3,000 mmu cells PO DAILY Discontinued losartan 50 mg tablet 50 mg PO DAILY Qty: 90 3RF Rx Instructions: pt stopped and then restarted this me on his own 10/13/21 cc Discharge Instructions Activity:: Activity as Tolerated Equipment/Supplies:: No Equipment Needed Diet:: low salt Discharge Orders Discharge Orders: Discharge Order (Routine); Ordered 03/23/25 Ordered By: Daniel Wilson DS: Summary Time Spent with Patient providing and/or coordinating discharge services: Less than 30 minutes Status at Discharge Functional status at discharge: independent ambulation Overall status at discharge: patient is back to baseline Mental Status: mental status grossly normal Speech and Movement: speech and movement normal Mood: congruent mood Affect: normal affect Exam Narrative Exam Narrative: Well-appearing male stated age in no acute distress head is atraumatic eyes nonicteric noninjected oral mucosa is slightly dry neck full range of motion no JVD cardiovascular regular rate and rhythm respirations even and unlabored abdomen is distended soft nontender moves all extremities equally no peripheral edema neurologic he is awake alert oriented no focal deficits psychiatric appropriate mood and affect Psych Mental Status: mental status grossly normal Speech and Movement: speech and movement normal Mood: congruent mood Affect: normal affect DS: Data Vitals/I&O Vitals and I&O: Vital Signs Temperature 36.6 C 03/23/25 11:15 Temperature Source Temporal Artery Scan 03/23/25 11:15 Pulse 70 03/23/25 11:15 Pulse Rhythm Regular 03/22/25 23:42 Pulse 68 03/22/25 23:20 Respiratory Rate 15 03/23/25 11:15 Respiratory Effort Normal, Non-Labored 03/22/25 23:42 Respiratory Depth Normal 03/22/25 23:42 Respiratory Pattern Normal 03/22/25 23:42 Blood Pressure 108/39 L 03/23/25 11:15 Blood Pressure Mean 62 03/23/25 11:15 Blood Pressure Position Sitting 03/22/25 17:04 Pulse Oximetry 97 03/23/25 11:15 Oxygen Delivery Method Room Air 03/23/25 11:15 Oxygen Flow Rate 0 03/23/25 11:15 Pain Level 0 03/23/25 04:35 Intake & Output 03/22/25 03/22/25 03/23/25 11:59 23:59 11:59 Intake Total 250 / 250 Output Total 1375 / 1375 1275 / 1275 Balance -1375 / -1375 -1025 / -1025 Weight 68.7 kg 67.2 kg Intake: Oral 250 / 250 Output: Urine 1175 / 1175 1275 / 1275 Other 200 / 200 Other: Urine Color Yellow Yellow Urine Appearance Clear Clear Urine Odor Normal Comment neon yellow pt has voided independently in bathroom. Data Completed and Pending Labs on day of discharge: Labs from last 24 hours 03/23/25 03/23/25 03/23/25 06:37 06:34 00:16 WBC 8.45 RBC 4.41 Hgb 14.0 Hct 41.0 MCV 93 MCH 31.7 MCHC 34.1 RDW 12.9 Plt Count 141 MPV 10.6 Immature Gran % Neutrophils % Lymphocytes % Monocytes % Eosinophils % Basophils % Absolute Neutrophils Absolute Lymphocytes Absolute Monocytes Absolute Eosinophils Absolute Basophils PT INR Sodium 135 L Potassium 3.8 Chloride 103 Carbon Dioxide 20.5 L Anion Gap 11.5 H BUN 20 H Creatinine 1.4 H Est GFR (CKD-EPI 2020) 48.95 Glucose 75 Calcium 9.0 Magnesium 2.0 Total Bilirubin 0.6 AST 16 ALT 18 Alkaline Phosphatase 39 L Troponin I 61 NT-Pro-B Natriuret Pep Total Protein 5.7 L Albumin 3.1 L TSH 0.61 COVID-19 Source SARS-CoV-2 (PCR) Influenza Type A (PCR) Influenza Type B (PCR) RSV (PCR) 03/22/25 03/22/25 23:08 18:22 WBC 8.12 RBC 4.17 L Hgb 12.8 L Hct 39.0 L MCV 94 MCH 30.7 MCHC 32.8 RDW 13.0 Plt Count 145 MPV 10.4 Immature Gran % 0.4 Neutrophils % 63.1 Lymphocytes % 22.7 Monocytes % 8.3 Eosinophils % 5.0 Basophils % 0.5 Absolute Neutrophils 5.12 Absolute Lymphocytes 1.84 Absolute Monocytes 0.67 Absolute Eosinophils 0.41 Absolute Basophils 0.04 PT 9.9 INR 1.0 Sodium 132 L Potassium 4.5 Chloride 101 Carbon Dioxide 20.7 L Anion Gap 10.3 BUN 20 H Creatinine 1.6 H Est GFR (CKD-EPI 2020) 41.70 Glucose 81 Calcium 8.8 Magnesium 1.9 Total Bilirubin 0.6 AST 15 ALT 16 Alkaline Phosphatase 38 L Troponin I 50 NT-Pro-B Natriuret Pep 2180 H Total Protein 5.5 L Albumin 3.1 L TSH COVID-19 Source Cancelled SARS-CoV-2 (PCR) Cancelled Influenza Type A (PCR) Cancelled Influenza Type B (PCR) Cancelled RSV (PCR) Cancelled PFS All Active Problems (Updated 03/22/25 @ 22:23 by Andre Willard) Hyperlipidemia (Chronic) CHF (congestive heart failure) (Chronic) CHF (congestive heart failure) (Acute) S/P TAVR (transcatheter aortic valve replacement) (Chronic) CVA (cerebral vascular accident) (Chronic) Sepsis (Acute) Acute dehydration (Acute) Diarrhea (Acute) Dehydration (Acute) Leukocytosis (Acute) Insomnia (Acute) Globus sensation (Acute) Memory loss (Acute) Ulcer of right foot with fat layer exposed (Acute) Pain in left foot (Acute) Mechanical low back pain (Acute) Right sided abdominal pain (Acute) Pain disorder associated with psychological and physical factors (Acute) Lumbar spondylosis (Acute) Post-laminectomy syndrome (Acute) Poor appetite (Acute) COVID-19 (Acute) Chronic headache (Acute) Orthostatic hypertension (Acute) Chronic rhinitis (Acute) Rib fracture (Acute) Constipation by delayed colonic transit (Acute) BLANCO (dyspnea on exertion) (Acute) Other idiopathic scoliosis, thoracolumbar region (Acute) Acquired hammertoes of both feet (Acute) Nasal congestion (Acute) Pharyngitis (Acute) BPH w urinary obs/LUTS (Acute) Thyroiditis (Acute) Excessive cerumen in both ear canals (Acute) Chronic hyponatremia (Acute) Bronchomalacia (Acute) Stage III chronic kidney disease (Chronic) Dx necessary for at-risk foot care with Podiatry Diverticulitis (Chronic) GERD (gastroesophageal reflux disease) (Chronic) HTN (hypertension) (Chronic) Hypercholesterolemia (Acute) Dizziness and giddiness (Acute) Malaise and fatigue (Acute) Cerebrovascular disease (Acute) Aortic valve disorder (Acute) Prostate cancer (Chronic) Diverticular disease of colon (Acute) Iron deficiency anemia (Acute) Depressive disorder (Acute) Headache (Acute) Chronic pansinusitis (Acute) Chronic cough (Acute) White coat syndrome with hypertension (Chronic) Tests in the 120s at home Cough (Acute) per Nikki 02/10/2020 started Breo inhaler 03/02/20 F/U with Dr Jordan, next ov 04/06/20 Hip osteoarthritis (Acute) Obstructive sleep apnea (Chronic ~2017) Moderate-PAP therapy H/O endoscopy (Chronic) 11/2020 Sinusitis, chronic 11/04/21 [place] low grade esophageal ulcer, 2 cm Hiatal Hernia Acute dyspnea (Acute) Insomnia (Chronic) Sleep Clinic. 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) Onychomycosis (Acute 04/23/22) History of hemoptysis (Acute) Stenosis of carotid artery (Acute) 05/22/22 [facility] [place]ascular Arteriosclerosis of left carotid artery (Acute) 05/22/22 Vascular Eczema (Chronic) start narrow band UVB bid at [facility] History of vascular surgery (Chronic) Stenting of L internal carotid artery, 06/28, [facility], started plavix Nail dystrophy (Acute) Corns and callosities (Acute) Left hip pain (Acute) Impacted cerumen, bilateral (Acute) Conductive hearing loss, external ear (Acute) Long-term current use of proton pump inhibitor therapy (Acute) Sacral back pain (Acute) referred to Spine Clinic per note 01/02/23 [facility] Osteopenia (Acute) Syncope (Chronic) Syncope (Chronic) Spondylolisthesis at L4-L5 level (Acute) Medical History History of pyloric stenosis as a child Surgical History H/O lumbosacral spine surgery H/O laminectomy (07/17/23) [facility] Bilateral laminectomy, medial facetectomy, foraminotomy L4-5; Posterior instrumentation L4-5; Posterolateral arthrodesis L4-5; Application of local autograft; Application of allograft morselized History of carotid endarterectomy 2020 H/O colonoscopy (~11/04/21) 11/04/21 Dr Tyler History of colon resection H/O aortic valve replacement History of tonsillectomy H/O shoulder surgery H/O hemorrhoidectomy History of hernia repair Family History Father Tuberculosis Mother Breast cancer Heart disease Sister Cancer Heart disease Hypertension Social History Smoking/Tobacco Use Status: Former Tobacco Use Quit Date: 09/07/1964 Pack- years: 42 Tobacco: How many years used: 14 Smoking risk assessment performed?: Yes Alcohol Intake: current Alcohol Intake frequency: 0-2 drinks per day Alcohol type: wine and hard liquor Drug use: Never Substance use type: does not use Adopted: No Caregiver/Support person: No Foster care: No Household members: spouse Housing: house Number of Children: 1 Education Level: college Do you need help understanding health information?: Never 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 Pets and animals: No Sexually active: Yes Do you think of yourself as: straight/heterosexual Current gender identity: male What is your relationship status?: How often do you talk on the phone with friends or family?: three or more times per week How often do you get together with friends or relatives?: never How often do you attend jehovah's witness or roman catholic services?: decline to answer Do you belong to any clubs or organized social groups?: no Panel score (0-1 are the most socially isolated patients): 2 What type of physical activity do you participate in: other Details: 2nd Degree Carpet JackShalini Bhardwaj Duration: 60-90 minutes/day Frequency: 1-2 times per week Seatbelt use: always Drive intox or ride w/intox cdl b driver: No Working smoke detector in home: Yes Carbon monox detector in home: Yes Do you feel safe at home: Yes Do you feel safe in your relationship?: Yes Time Spent with Patient Time Spent with Patient: <45 minutes Time was spent: preparing to see the patient(eg.review tests), obtaining and/or reviewing separately otained hiistory, ordering medications,tests, procedures, referring, communicating with other health resident care coordinator, indepentently interpreting results, counseling the patient and care coordination
--- NOTE | 2025-03-23 13:38 | PDOC.CMPRO ---
Date of service: 03/23/25 Time of Service: 13:39 Care Management Progress Note Progress Note Text Progress Note Text: Gustabo was admitted last evening with CHF. He was diuresed overnight with good effect and felt much better this morning. He was discharged home with no new services before CM was able to meet with him. He was initially admitted as an inpatient but did not meet inpatient criteria so was changed to Observation status. Gustabo left before an IMM or RUANO were able to be completed. Social Determinants of Health Screening Social Determinants of health last assessed in clinic: 03/22/25 Will the Patient Participate in the Screening?: Declined to provide Do you worry about having a steady place to live?: no Problems where you live: no known problems In the past 12 months, have you had to go without electric, gas, oil or water in your home?: no Has lack of transportation kept you from medical appointments or from doing things needed for daily living?: no Has anyone in your life made you feel unsafe or unsupported?: no How hard is it for you to pay for the very basics like food, housing, medical care, and heating? Would you say it is:: Not hard at all Do you want help finding or keeping work or a job?: I do not need or want help If for any reason you need help with day-to-day activities such as bathing, preparing meals, shopping, managing finances, etc., do you get the help you need?: I don?t need any help How often do you feel lonely or isolated from those around you?: Never Do you speak a language other than Haitian at home?: No Does the patient want assistance with any of the above?: No
--- NOTE | 2025-03-23 14:56 | W.ED.GENAD ---
Discharge Plan Disposition Patient Disposition: Admit to [facility] Condition: Improving Discharge Details Clinical Impression: CHF (congestive heart failure) Admit Date/Time: 03/22/25 23:08 Admit Provider: Andre Willard Attending Provider: Andre Willard Primary Care Provider: Umesh Covarrubias ED Provider: Alexis Stout Discharge Data Discharge Date/Time-TO BE ENTERED AT DEPARTURE: 03/22/25 23:32 HPI General Date/Time Provider Initiated Documentation: 03/22/25 17:11. HPI Narrative: Patient presented to the emergency department complaining of difficulty in breathing for the last week. States that his primary care physician reduced his blood pressure medication for his blood pressure was low. Reports dyspnea on exertion and lower extremity swelling. Related Data Home Medications ?Medication ?Instructions ?Recorded ?Confirmed coenzyme Q10 100 mg capsule (Co 300 mg PO DAILY 09/03/19 03/22/25 Q-10) lactobacillus combination no.4 3 3,000 mmu cells PO DAILY 09/03/19 03/22/25 billion cell capsule (Probiotic) vitamin B complex 1 cap PO DAILY 09/03/19 03/22/25 aspirin 81 mg capsule 81 mg PO DAILY 12/05/21 03/22/25 polyethylene glycol 3350 17 17 g PO DAILY PRN 12/21/23 03/22/25 gram/dose oral powder (Miralax) pantoprazole 40 mg tablet,delayed 40 mg PO BID #180 tabs 02/14/25 03/22/25 release ascorbic acid (vitamin C) 500 mg 500 mg PO DAILY 03/03/25 03/22/25 tablet,extended release (C-500) cholecalciferol (vitamin D3) 50 2,000 unit PO DAILY 03/03/25 03/22/25 mcg (2,000 unit) capsule rosuvastatin 20 mg tablet 20 mg PO DAILY 03/03/25 03/22/25 triamcinolone acetonide 0.025 % 1 applic topical BID PRN 03/03/25 03/22/25 topical cream lorazepam 1 mg tablet 1 mg PO QHS PRN insomnia/back 03/16/25 03/22/25 spasms #30 tabs astragalus root 470 mg capsule 470 mg PO BID 03/22/25 03/22/25 burdock root PO BID 03/22/25 hawthorn alvarez See Rx Instructions PO .COMPLEX 03/22/25 03/22/25 lycopene 10 mg capsule 20 mg PO DAILY 03/22/25 03/22/25 marshmallow root 480 mg capsule 2,000 mg PO BID 03/22/25 03/22/25 tumeric 03/22/25 furosemide 40 mg tablet (Lasix) 40 mg PO DAILY #30 tabs 03/23/25 Previous Rx's ?Medication ?Instructions ?Recorded pantoprazole 40 mg tablet,delayed 40 mg PO BID #180 tabs 02/14/25 release lorazepam 1 mg tablet 1 mg PO QHS PRN insomnia/back 03/16/25 spasms #30 tabs furosemide 40 mg tablet (Lasix) 40 mg PO DAILY #30 tabs 03/23/25 Allergies Allergy/AdvReac Type Severity Reaction Status Date / Time metronidazole Allergy Intermediate Skin Rash, Verified 03/22/25 18:08 swelling, itchy sulfamethoxazole (From Allergy turns red Verified 03/22/25 18:08 Bactrim) trimethoprim (From Bactrim) Allergy turns red Verified 03/22/25 18:08 ropinirole AdvReac Severe insomina, Verified 03/22/25 18:08 weakness, intense fatigue zolpidem (From Ambien) AdvReac sleep Verified 03/22/25 18:08 walk General Stated Complaint: SOB ANIBAL: 3 Course Vital Signs Vital signs: Vital Signs Temperature 37.1 C 03/22/25 17:04 Pulse 75 03/22/25 17:04 Respiratory Rate 18 03/22/25 17:04 Blood Pressure 136/52 L 03/22/25 17:04 Pulse Oximetry 95 03/22/25 17:04 Temperature 36.6 C 03/23/25 11:15 Temperature Source Temporal Artery Scan 03/23/25 11:15 Pulse 70 03/23/25 11:15 Pulse Rhythm Regular 03/22/25 23:42 Pulse 68 03/22/25 23:20 Respiratory Rate 15 03/23/25 11:15 Respiratory Effort Normal, Non-Labored 03/22/25 23:42 Respiratory Depth Normal 03/22/25 23:42 Respiratory Pattern Normal 03/22/25 23:42 Blood Pressure 108/39 L 03/23/25 11:15 Blood Pressure Mean 62 03/23/25 11:15 Blood Pressure Position Sitting 03/22/25 17:04 Pulse Oximetry 97 03/23/25 11:15 Oxygen Delivery Method Room Air 03/23/25 11:15 Oxygen Flow Rate 0 03/23/25 11:15 Pain Level 0 03/23/25 04:35 Lab/Test Results Lab/Test Results: Laboratory Tests Range/Units 03/22/25 18:22 WBC (4.4-10.8) 10^3/uL 8.12 RBC (4.36-5.78) 10^6/uL 4.17 L Hgb (13.5-17.5) g/dL 12.8 L Hct (40.0-50.0) % 39.0 L MCV (80-95) fL 94 MCH (27.0-33.0) pg 30.7 MCHC (32.0-36.0) % 32.8 RDW (11.8-14.1) % 13.0 Plt Count (130-400) 10^3/uL 145 MPV (8.0-11.0) fL 10.4 Immature Gran % % 0.4 Neutrophils % % 63.1 Lymphocytes % % 22.7 Monocytes % % 8.3 Eosinophils % % 5.0 Basophils % % 0.5 Absolute Neutrophils (1.2-6.7) 10^3/uL 5.12 Absolute Lymphocytes (1.2-3.4) 10^3/uL 1.84 Absolute Monocytes (0.1-0.8) 10^3/uL 0.67 Absolute Eosinophils (0.0-0.7) 10^3/uL 0.41 Absolute Basophils (0.0-0.2) 10^3/uL 0.04 PT (9.1-11.1) sec 9.9 INR (0.9-1.1) 1.0 Sodium (136-145) mmol/L 132 L Potassium (3.5-5.1) mmol/L 4.5 Chloride (98-107) mmol/L 101 Carbon Dioxide (21.0-32.0) mmol/L 20.7 L Anion Gap (3-11) mmol/L 10.3 BUN (7-18) mg/dL 20 H Creatinine (0.70-1.30) mg/dL 1.6 H Est GFR (CKD-EPI 2020) (mL/min/1.73m2) 41.70 Glucose (74-106) mg/dL 81 Calcium (8.5-10.1) mg/dL 8.8 Magnesium (1.8-2.4) mg/dL 1.9 Total Bilirubin (0.2-1.0) mg/dL 0.6 AST (15-37) U/L 15 ALT (16-63) U/L 16 Alkaline Phosphatase (46-116) U/L 38 L Troponin I (<or=76) ng/L 50 NT-Pro-B Natriuret Pep (<300) pg/mL 2180 H Total Protein (6.4-8.2) g/dL 5.5 L Albumin (3.4-5.0) g/dL 3.1 L PFSH All Active Problems (Updated 03/22/25 @ 22:23 by Andre Willard) Hyperlipidemia (Chronic) CHF (congestive heart failure) (Chronic) CHF (congestive heart failure) (Acute) S/P TAVR (transcatheter aortic valve replacement) (Chronic) CVA (cerebral vascular accident) (Chronic) Sepsis (Acute) Acute dehydration (Acute) Diarrhea (Acute) Dehydration (Acute) Leukocytosis (Acute) Insomnia (Acute) Globus sensation (Acute) Memory loss (Acute) Ulcer of right foot with fat layer exposed (Acute) Pain in left foot (Acute) Mechanical low back pain (Acute) Right sided abdominal pain (Acute) Pain disorder associated with psychological and physical factors (Acute) Lumbar spondylosis (Acute) Post-laminectomy syndrome (Acute) Poor appetite (Acute) COVID-19 (Acute) Chronic headache (Acute) Orthostatic hypertension (Acute) Chronic rhinitis (Acute) Rib fracture (Acute) Constipation by delayed colonic transit (Acute) BLANCO (dyspnea on exertion) (Acute) Other idiopathic scoliosis, thoracolumbar region (Acute) Acquired hammertoes of both feet (Acute) Nasal congestion (Acute) Pharyngitis (Acute) BPH w urinary obs/LUTS (Acute) Thyroiditis (Acute) Excessive cerumen in both ear canals (Acute) Chronic hyponatremia (Acute) Bronchomalacia (Acute) Stage III chronic kidney disease (Chronic) Dx necessary for at-risk foot care with Podiatry Diverticulitis (Chronic) GERD (gastroesophageal reflux disease) (Chronic) HTN (hypertension) (Chronic) Hypercholesterolemia (Acute) Dizziness and giddiness (Acute) Malaise and fatigue (Acute) Cerebrovascular disease (Acute) Aortic valve disorder (Acute) Prostate cancer (Chronic) Diverticular disease of colon (Acute) Iron deficiency anemia (Acute) Depressive disorder (Acute) Headache (Acute) Chronic pansinusitis (Acute) Chronic cough (Acute) White coat syndrome with hypertension (Chronic) Tests in the 120s at home Cough (Acute) per Nikki 02/10/2020 started Breo inhaler 03/02/20 F/U with Dr Jordan, next ov 04/06/20 Hip osteoarthritis (Acute) Obstructive sleep apnea (Chronic ~2017) Moderate-PAP therapy H/O endoscopy (Chronic) 11/2020 Sinusitis, chronic 11/04/21 [place] low grade esophageal ulcer, 2 cm Hiatal Hernia Acute dyspnea (Acute) Insomnia (Chronic) Sleep Clinic. 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) Onychomycosis (Acute 04/23/22) History of hemoptysis (Acute) Stenosis of carotid artery (Acute) 05/22/22 [facility] [place] Vascular Arteriosclerosis of left carotid artery (Acute) 05/22/22 Vascular Eczema (Chronic) start narrow band UVB bid at [facility] History of vascular surgery (Chronic) Stenting of L internal carotid artery, 06/28, [facility] [place], started plavix Nail dystrophy (Acute) Corns and callosities (Acute) Left hip pain (Acute) Impacted cerumen, bilateral (Acute) Conductive hearing loss, external ear (Acute) Long-term current use of proton pump inhibitor therapy (Acute) Sacral back pain (Acute) referred to Spine Clinic per note 01/02/23 [facility] [place] Osteopenia (Acute) Syncope (Chronic) Syncope (Chronic) Spondylolisthesis at L4-L5 level (Acute) Medical History History of pyloric stenosis as a child Surgical History H/O lumbosacral spine surgery H/O laminectomy (07/17/23) [facility] Bilateral laminectomy, medial facetectomy, foraminotomy L4-5; Posterior instrumentation L4-5; Posterolateral arthrodesis L4-5; Application of local autograft; Application of allograft morselized History of carotid endarterectomy 2020 H/O colonoscopy (~11/04/21) 11/04/21 Dr Tyler History of colon resection H/O aortic valve replacement History of tonsillectomy H/O shoulder surgery H/O hemorrhoidectomy History of hernia repair Family History Father Tuberculosis Mother Breast cancer Heart disease Sister Cancer Heart disease Hypertension Social History Smoking/Tobacco Use Status: Former Tobacco Use Quit Date: 09/07/1964 Pack-years: 42 Tobacco: How many years used: 14 Smoking risk assessment performed?: Yes Alcohol Intake: current Alcohol Intake frequency: 0-2 drinks per day Alcohol type: wine and hard liquor Drug use: Never Substance use type: does not use Adopted: No Caregiver/Support person: No Foster care: No Household members: spouse Housing: house Number of Children: 1 Education Level: college Do you need help understanding health information?: Never 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 Pets and animals: No Sexually active: Yes Do you think of yourself as: straight/heterosexual Current gender identity: male What is your relationship status?: How often do you talk on the phone with friends or family?: three or more times per week How often do you get together with friends or relatives?: never How often do you attend mu-ism or mormonism services?: decline to answer Do you belong to any clubs or organized social groups?: no Panel score (0-1 are the most socially isolated patients): 2 What type of physical activity do you participate in: other Details: 2nd Degree Shalini Rodarte Duration: 60-90 minutes/day Frequency: 1-2 times per week Seatbelt use: always Drive intox or ride w/intox bottom hoop driver: No Working smoke detector in home: Yes Carbon monox detector in home: Yes Do you feel safe at home: Yes Do you feel safe in your relationship?: Yes PAWSS Have you Been Recently Intoxicated or Drunk Within the Last 30 days?: No Have you Ever Experienced Previous Episodes of Alcohol Withdrawal?: No Have you ever Experienced Withdrawal Seizures?: No Have you ever Experienced Delirium Tremens(DT)s?: No Have you ever undergone Alcohol Rehabilitation Treatment (i.e, inpt ot outpatient treatment programs)?: No Have you ever Experienced Blackouts?: No Have you ever Combined Alcohol with other Downers within the last 90 days?: No Have you ever Combined Alcohol with any other Substance of Abuse during the last 90 days?: No Positive Blood Alcohol level on Presentation? [PCS.BAL]: No Evidence of Increased Autonomic Activity (i.e. HR>120, tremor, sweating, agitation, nausea)?: No Result: 0
== END 2025-03-23 12:25 | disposition home or self-care (01) ==
LOC: ER 22:11 → MS 03-23 08:48
PROVIDERS: Admitting Provider Family Medicine; Emergency Provider Emergency Medicine Emergency Medical Services; PCP Family Medicine; Responsible Provider Hospitalist; Visit Provider Family Medicine
DX: I13.0 Hypertensive heart and chronic kidney disease with heart failure and stage 1 through stage 4 chronic kidney disease, or unspecified chronic kidney disease (principal); I50.31 Acute diastolic (congestive) heart failure; Z95.2 Presence of prosthetic heart valve; N18.32 Chronic kidney disease, stage 3b; E78.5 Hyperlipidemia, unspecified; Z86.73 Personal history of transient ischemic attack (TIA), and cerebral infarction without residual deficits; G47.00 Insomnia, unspecified; M47.816 Spondylosis without myelopathy or radiculopathy, lumbar region; N40.1 Benign prostatic hyperplasia with lower urinary tract symptoms; N13.8 Other obstructive and reflux uropathy; J98.09 Other diseases of bronchus, not elsewhere classified; E87.1 Hypo-osmolality and hyponatremia; I67.9 Cerebrovascular disease, unspecified; D50.9 Iron deficiency anemia, unspecified; G47.33 Obstructive sleep apnea (adult) (pediatric)
CPT/HCPCS: 00123; 36415; 76604; 80053; 85027; 87637; 93005; 93308; 96374; 96376; 99285; 70450; 71045; 83735; 83880; 84443; 84484; 85025; 85610; 93010; 93306; 99222; 99239; G0378; J1938

== ENCOUNTER → 2025-03-30 13:21 | Outpatient (BNVA) | payer MEDICARE, OTHER, SELFPAY | PROVIDERS: PCP Family Medicine; Visit Provider Internal Medicine Cardiovascular Disease | DX: Z95.2 Presence of prosthetic heart valve (principal); I10 Essential (primary) hypertension | CPT/HCPCS: 99214; 36415; 73130; 83880 ==

== ENCOUNTER 2025-03-30 15:02 | Outpatient (CLI) | payer MEDICARE, OTHER, SELFPAY ==
--- NOTE | 2025-03-30 | DI.RAD_ITS ---
Exam(s) XR HAND RT COMPLETE EXAM: XR HAND RT COMPLETE CLINICAL HISTORY: DISLOCATION OF METACARPOPHALANGEAL JOINT OF R THUMB, SEQUELA S63.114S. TECHNIQUE: 2D digital imaging was performed. Three views. COMPARISON: CR XR WRIST RT COMPLETE from 02/18/2024 CR XR HAND RT COMPLETE from 02/18/2024 FINDINGS: BONES: No acute fracture is present. No bony destructive lesion is seen. There are screws in the 1st metacarpal and 1st proximal phalanx. JOINTS: No dislocation present. Advanced degenerative changes noted at the interphalangeal joint of the thumb. Prior resection of the trapezium. Degenerative changes at base of 1st metacarpal. Moderate degenerative changes of the interphalangeal joints. SOFT TISSUE: Normal. IMPRESSION: Postsurgical and degenerative changes. No evidence of dislocation at the 1st MCP joint. DATA REPOSITORY: RADIATION DOSE DELIVERED:
== END 2025-03-30 15:22 ==
LOC: DI 15:02
PROVIDERS: PCP Family Medicine; Visit Provider Orthopaedic Surgery
DX: S63.114A Dislocation of metacarpophalangeal joint of right thumb, initial encounter (principal); X58.XXXA Exposure to other specified factors, initial encounter
CPT/HCPCS: 73130

== ENCOUNTER → 2025-04-06 13:56 | Outpatient (BNVA) | payer MEDICARE, OTHER, SELFPAY | PROVIDERS: PCP Family Medicine; Referring Provider Family Medicine; Visit Provider Podiatrist | DX: L60.3 Nail dystrophy (principal); L84 Corns and callosities; L43.9 Lichen planus, unspecified; I73.89 Other specified peripheral vascular diseases; N18.32 Chronic kidney disease, stage 3b; Z98.890 Other specified postprocedural states; L85.8 Other specified epidermal thickening; R09.89 Other specified symptoms and signs involving the circulatory and respiratory systems; L65.9 Nonscarring hair loss, unspecified; R20.8 Other disturbances of skin sensation; R23.8 Other skin changes; L60.8 Other nail disorders; L60.2 Onychogryphosis | CPT/HCPCS: 11055; 11719; G0127 ==

== ENCOUNTER → 2025-04-26 15:16 | Outpatient (BNVA) | payer MEDICARE, OTHER, SELFPAY | PROVIDERS: PCP Family Medicine; Referring Provider Family Medicine; Visit Provider Podiatrist | DX: L60.3 Nail dystrophy (principal); I73.89 Other specified peripheral vascular diseases; L84 Corns and callosities; Z98.890 Other specified postprocedural states; L43.9 Lichen planus, unspecified; N18.32 Chronic kidney disease, stage 3b | CPT/HCPCS: 99212 ==

== ENCOUNTER → 2025-05-24 14:47 | Outpatient (BNVA) | payer MEDICARE, OTHER, SELFPAY | PROVIDERS: PCP Family Medicine; Visit Provider Psychiatry & Neurology Neurology | DX: R26.89 Other abnormalities of gait and mobility (principal); G44.52 New daily persistent headache (NDPH); R42 Dizziness and giddiness; I10 Essential (primary) hypertension; G89.29 Other chronic pain; R41.3 Other amnesia | CPT/HCPCS: 99214 ==

== ENCOUNTER 2025-05-30 01:02 | Outpatient (CLI) | payer MEDICARE, OTHER, SELFPAY ==
--- NOTE | 2025-05-30 06:15 | DI.US_ITS ---
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 TECHNIQUE: Ultrasound was performed using standard protocol. COMPARISON: MR MR BRAIN WO from 04/29/2024 FINDINGS: Sonographic assessment utilizing grayscale and color Doppler imaging was performed and targeted to the area of clinical concern. The bilateral parotid glands and submandibular again glands were scanned. The parotid glands appear normal. The right submandibular gland appears normal. The left submandibular gland shows a 1.3 x 0.9 x 1.5 centimeter of mildly hypoechoic nodule containing calcifications. Biopsy recommended. IMPRESSION: 1.5 centimeter nodule in the left submandibular gland. Biopsy is recommended. DATA REPOSITORY:
== END 2025-05-30 01:22 ==
LOC: DI 01:02
PROVIDERS: PCP Family Medicine; Visit Provider Nurse Practitioner Family
DX: K11.1 Hypertrophy of salivary gland (principal)
CPT/HCPCS: 76536

== ENCOUNTER 2025-07-22 04:02 | Emergency (ER) | payer MEDICARE, OTHER, SELFPAY ==
[2025-07-22] VITALS (25 sets, daily range): BP systolic 147–181; BP diastolic 43–67; PULSE 65–104; RESP 11–23; TEMP 36.2; O2SAT 90–98
--- NOTE | 2025-07-22 04:31 | W.ED.GENAD ---
Discharge Plan Disposition Patient Disposition: Home Condition: Good Discharge Details Clinical Impression: Fall, Neck sprain Primary Care Provider: Umesh Covarrubias ED Provider: Kar Shetty Home Meds and New Rx's Prescriptions: New lidocaine [Lidoderm] 5 % adhesive patch,medicated 1 patch Topical Q24H Qty: 15 0RF No Action furosemide [Lasix] 20 mg tablet 20 mg PO QAM Qty: 90 3RF aspirin 81 mg capsule 81 mg PO DAILY pantoprazole 40 mg tablet,delayed release (DR/EC) 40 mg PO BID Qty: 180 3RF loratadine [Claritin] 10 mg tablet 20 mg PO DAILY lorazepam 1 mg tablet 1 mg PO BID PRN (Reason: insomnia/back spasms/pruritis) Qty: 60 2RF polyethylene glycol 3350 [Miralax] 17 gram/dose powder 17 g PO DAILY PRN sennosides [senna] 8.6 mg tablet 8.6 mg PO DAILY Qty: 90 1RF triamcinolone acetonide 0.025 % cream 1 applic TOPICAL BID PRN Patient Comments: APPLY A THIN LAYER TOPICALLY TO RASH TWICE DAILY UNTIL CLEAR THEN STOP rosuvastatin 20 mg tablet 20 mg PO DAILY Patient Comments: TAKE 1 TABLET BY MOUTH DAILY cholecalciferol (vitamin D3) 50 mcg (2,000 unit) capsule 2,000 unit PO DAILY lycopene 10 mg capsule 20 mg PO DAILY Rx Instructions: administer after a meal astragalus root 470 mg capsule 470 mg PO BID burdock root PO BID Rx Instructions: 2 capsules BID orally; marshmallow root 480 mg capsule 2,000 mg PO BID hawthorn alvarez [Janeth Alvarez] See Rx Instructions PO .COMPLEX Rx Instructions: 1500 mg BID per orally; tumeric vitamin B complex Capsule 1 cap PO DAILY Patient Comments: PT not taking coenzyme Q10 [Co Q-10] 100 mg Capsule 300 mg PO DAILY Probiotic 3 billion cell Capsule 3,000 mmu cells PO DAILY Discharge Instructions Instructions: Whiplash Additional Instructions: At this time your imaging shows no evidence of bleed in your brain, fracture in your neck, fracture in your chest or ribs, or other significant problem. Please use the Lidoderm patches to help with the pain, use the heating pads to help with muscle achiness. Please follow-up closely with your primary care provider for reassessment and for your scheduled MRI. If you notice any worsening of your symptoms, or any new symptoms such as vomiting, diarrhea, fever, chills, shortness of breath, chest pain, numbness, weakness, or fainting , please return immediately to the emergency department for reevaluation. Please follow up with your primary care provider as soon as possible for reassessment and reevaluation. As always, it was a pleasure participating in your medical care today. Stand Alone Forms: Portal Information Referrals: Umesh Covarrubias DO [Primary Care Provider, Medicine] [facility] General Date/Time Provider Initiated Documentation: 07/22/25 04:07. HPI Narrative: This is an 85-year-old male with a past medical history of congestive heart failure, previous TAVR, previous stroke, hypertension, high cholesterol, peripheral vascular disease, left carotid stenosis status post TCAR with stent in June 2022 obstructive sleep apnea, lumbar stenosis with fusion in June 2023, chronic renal insufficiency, depression, previous bowel resection, previous GI bleed secondary to gastric ulcer, prostate cancer, who presents today for evaluation of fall. Patient presents with his . Per history the patient has had a few atypical episodes at home over the last few days of altered mental status, disrupted speech, falls and confusion. They seem to be self-limited and resolve on their own. Patient was seen on 07/18/2015 with his primary care provider, nuclear monitoring technician was ordered, repeat outpatient nonemergent orders for ultrasound of the carotid and MRI of the brain also made. Patient had been doing well, however 2 nights ago he had taken 2 mg of lorazepam to help sleep secondary to insomnia from his eczema, and when he woke up in the morning he was a bit more unstable than normal which family states is quite normal when he takes these extra lorazepam. At 4 PM he fell while in the bathroom, he did hit the left side of his head, but had no other pain or trauma. He states that he got dizzy and that is why he fell. For the last 12 hours he has been doing well, however he still continued to have some neck stiffness throughout the night. This morning at 4 AM family was concerned with his persistent symptoms and the decision was made to come in for further evaluation. No other complaints at this time. Patient is on aspirin 81 mg but does not take any anticoagulants. Patient denies any numbness or tingling. He denies any vision changes. He denies any headache. No chest pain. No syncope. No other complaints at this time. Related Data Home Medications Medication Instructions Recorded Confirmed coenzyme Q10 100 mg capsule (Co 300 mg PO DAILY 09/03/19 07/18/25 Q-10) lactobacillus combination no.4 3 3,000 mmu cells PO DAILY 09/03/19 07/18/25 billion cell capsule (Probiotic) vitamin B complex 1 cap PO DAILY 09/03/19 07/18/25 aspirin 81 mg capsule 81 mg PO DAILY 12/05/21 07/18/25 polyethylene glycol 3350 17 17 g PO DAILY PRN 12/21/23 07/18/25 gram/dose oral powder (Miralax) pantoprazole 40 mg tablet,delayed 40 mg PO BID #180 tabs 02/14/25 07/18/25 release cholecalciferol (vitamin D3) 50 2,000 unit PO DAILY 03/03/25 07/18/25 mcg (2,000 unit) capsule rosuvastatin 20 mg tablet 20 mg PO DAILY 03/03/25 07/18/25 triamcinolone acetonide 0.025 % 1 applic topical BID PRN 03/03/25 07/18/25 topical cream astragalus root 470 mg capsule 470 mg PO BID 03/22/25 07/18/25 burdock root PO BID 03/22/25 07/18/25 hawthorn alvarez See Rx Instructions PO .COMPLEX 03/22/25 07/18/25 lycopene 10 mg capsule 20 mg PO DAILY 03/22/25 07/18/25 marshmallow root 480 mg capsule 2,000 mg PO BID 03/22/25 07/18/25 tumeric 03/22/25 07/18/25 furosemide 20 mg tablet (Lasix) 20 mg PO QAM #90 tabs 03/29/25 07/18/25 sennosides 8.6 mg tablet (senna) 8.6 mg PO DAILY #90 tabs 04/21/25 07/18/25 loratadine 10 mg tablet (Claritin) 20 mg PO DAILY 06/16/25 07/12/25 lorazepam 1 mg tablet 1 mg PO BID PRN insomnia/back 07/18/25 07/18/25 spasms/pruritis #60 tabs lidocaine 5 % topical patch 1 patch topical Q24H #15 ea 07/22/25 (Lidoderm) Previous Rx's Medication Instructions Recorded pantoprazole 40 mg tablet,delayed 40 mg PO BID #180 tabs 02/14/25 release furosemide 20 mg tablet (Lasix) 20 mg PO QAM #90 tabs 03/29/25 sennosides 8.6 mg tablet (senna) 8.6 mg PO DAILY #90 tabs 04/21/25 lorazepam 1 mg tablet 1 mg PO BID PRN insomnia/back 07/18/25 spasms/pruritis #60 tabs lidocaine 5 % topical patch 1 patch topical Q24H #15 ea 07/22/25 (Lidoderm) Allergies Allergy/AdvReac Type Severity Reaction Status Date / Time metronidazole Allergy Intermediate Skin Rash, Verified 07/18/25 14:42 swelling, itchy sulfamethoxazole (From Allergy turns red Verified 07/18/25 14:42 Bactrim) trimethoprim (From Bactrim) Allergy turns red Verified 07/18/25 14:42 ropinirole AdvReac Severe insomina, Verified 07/18/25 14:42 weakness, intense fatigue zolpidem (From Ambien) AdvReac sleep Verified 07/18/25 14:42 walk General ANIBAL: 3 Exam Narrative Exam Narrative: 1.Const: Well-nourished, Well-developed, appearing stated age 2.Eyes: PERRL, no conjunctival injection, and symmetrical lids. 3.ENT: Atraumatic external nose and ears. Moist MM. Neck: Symmetric, trachea midline, No thyromegaly. There is no evidence of raccoon eyes, kahn sign, CSF rhinorrhea, mastoid tenderness, cranial crepitus, hemotympanum, exophthalmos, or hyphema. Patient demonstrates intact dentition with no signs of tooth avulsion or fracture, no signs of jaw deformity, no evidence of a LeFort's fracture, with an intact palate, nose and orbital region. There is no evidence of a nasal septal hematoma. No proptosis. Jaw closes symmetrically. Airway is clear. 4.CVS: +S1/S2, Peripheral pulses 2+ and equal in all extremities. Brisk capillary refill in all extremities. 5.RESP: Unlabored respiratory effort. Clear to auscultation bilaterally. No wheezes rales or rhonchi 6.GI: Soft, Nontender/Nondistended, No hepatosplenomegaly. No guarding or rebound. 7.MSK: Normocephalic/Atraumatic, Extremities w/o deformity or ttp No cyanosis or clubbing, Normal movement of all extremities 8.Skin: Warm, Dry. No rashes or lesions. 9.Neuro: health information internship II-XII grossly intact. Sensation grossly intact, no focal neurologic deficits. All 6 cardinal planes of vision are fully intact. No evidence of rotatory or vertical nystagmus. The patient demonstrated a normal sprbar-fafy-ahsbni, good dexterity. There was no evidence of dysdiadochokinesia. Sgsb-ax-gftr testing was normal. Sensation was intact bilaterally as well as muscle strength bilaterally for all extremities. Patient was able to verbalize butter cup with no slurring, or miss pronunciation. 10.Psych: (AAO) x3. Appropriate mood and affect Medical Decision Making This is an 85-year-old male with a past medical history of congestive heart failure, previous TAVR, previous stroke, hypertension, high cholesterol, peripheral vascular disease, left carotid stenosis status post TCAR with stent in June 2022 obstructive sleep apnea, lumbar stenosis with fusion in June 2023, chronic renal insufficiency, depression, previous bowel resection, previous GI bleed secondary to gastric ulcer, prostate cancer, who presents today for evaluation of fall. Patient presents with his . Per history the patient has had a few atypical episodes at home over the last few days of altered mental status, disrupted speech, falls and confusion. They seem to be self-limited and resolve on their own. Patient was seen on 07/18/2015 with his primary care provider, nuclear monitoring technician was ordered, repeat outpatient nonemergent orders for ultrasound of the carotid and MRI of the brain also made. Patient had been doing well, however 2 nights ago he had taken 2 mg of lorazepam to help sleep secondary to insomnia from his eczema, and when he woke up in the morning he was a bit more unstable than normal which family states is quite normal when he takes these extra lorazepam. At 4 PM he fell while in the bathroom, he did hit the left side of his head, but had no other pain or trauma. He states that he got dizzy and that is why he fell. For the last 12 hours he has been doing well, however he still continued to have some neck stiffness throughout the night. This morning at 4 AM family was concerned with his persistent symptoms and the decision was made to come in for further evaluation. No other complaints at this time. Patient is on aspirin 81 mg but does not take any anticoagulants. Patient denies any numbness or tingling. He denies any vision changes. He denies any headache. No chest pain. No syncope. No other complaints at this time. Exam demonstrates well-appearing male, no focal neurologic deficits, no signs of significant trauma. No midline cervical thoracic or lumbar spine tenderness. With the patient's subjective paraspinal achiness and neck stiffness, there is concern for osseous etiology. With his age and risk factors we will get CT scan of the head face and neck. We also get imaging of the chest to rule out acute fractures secondary to his previous fall. Will evaluate for electrolyte abnormalities that could have brought this imbalance of bowel, will check for UTI, we will monitor closely and reassess. Will evaluate for cardiac etiology as well or potential dysrhythmia. 7:21 AM Laboratory workup unremarkable, no significant white count bandemia or left shift. VBG normal, electrolytes stable, renal function stable, troponin normal. Pending urinalysis. CT scan of the head and neck demonstrates no acute process, significant fracture, intracranial bleed, or stroke. Chronic old nasal fractures are noted. Patient feels well with Lidoderm patches. has gone home. Still pending CT scan of the chest and UA. Patient will be signed out to my colleague Dr. Head for follow-up on these. FINDINGS: Generalized volume loss and periventricular white matter hypodensity consistent with chronic small vessel ischemic change. Small focus of encephalomalacia in the left parietal lobe. There is atherosclerotic calcification in the internal carotid and distal vertebral arteries . There is no evidence of intraparenchymal hemorrhage, mass effect or extra-axial collection. Ventricular size is concordant with degree of volume loss. Bilateral lens surgery. Sinuses: See below. IMPRESSION: 1. No acute intracranial findings. 2. Chronic ischemic changes. 3. Tiny left mastoid sinus effusion FINDINGS: Paranasal sinuses: Bilateral maxillary antrectomies. Mild mucosal thickening in the ethmoid sinuses. Orbital cavities: Orbits are normal. Globes are unremarkable. Mastoid air cells: Tiny amount of fluid in left mastoid sinus. Nasal cavity: Bilateral turbinectomies. Vasculature: Atherosclerotic disease. Bones: Left chronic nasal bone fracture. Temporomandibular joints are normally aligned. No acute fracture seen. Small avulsion fracture off the nasal spine of undetermined age. Soft tissues: Unremarkable. IMPRESSION: 1. Small avulsion fracture off the nasal spine of undetermined age, likely chronic. 2. Chronic left nasal bone fracture. 3. Evidence of extensive prior sinus surgery FINDINGS: There is 2 mm of C4 on C5 anterolisthesis due to spondylosis. No acute fracture. Multilevel degenerative changes are noted. No critical canal stenosis. No evidence of prevertebral soft tissue swelling. Atherosclerotic disease. There is a stent in the left carotid artery. Lung apices are unremarkable. IMPRESSION: 1. No evidence of fracture or dislocation. 2. Multilevel degenerative changes noted. Thank you for allowing us to participate in the care of your patient. Dictated and Authenticated by: Romana Prado MD 07/22/2025 6:41 AM Eastern Time ([place] & [place]) [facility] All Active Problems (Updated 07/22/25 @ 07:20 by Kar Shetty DO) Neck sprain (Acute) Fall (Acute) TIA (transient ischemic attack) (Acute) History of excessive cerumen (Acute) Atopic dermatitis, unspecified (Acute) [place] [facility] [place] Advanced care planning/counseling discussion (Acute) Palliative care patient (Acute) Mass of left submandibular gland (Acute) Tinea pedis (Acute) Diastolic congestive heart failure (Acute) Hyperlipidemia (Chronic) CHF (congestive heart failure) (Chronic) CHF (congestive heart failure) (Acute) S/P TAVR (transcatheter aortic valve replacement) (Chronic) CVA (cerebral vascular accident) (Chronic) Sepsis (Acute) Acute dehydration (Acute) Diarrhea (Acute) Leukocytosis (Acute) Insomnia (Acute) Globus sensation (Acute) Memory loss (Acute) Ulcer of right foot with fat layer exposed (Acute) Pain in left foot (Acute) Mechanical low back pain (Acute) Right sided abdominal pain (Acute) Pain disorder associated with psychological and physical factors (Acute) Lumbar spondylosis (Acute) Post-laminectomy syndrome (Acute) Poor appetite (Acute) COVID-19 (Acute) Chronic headache (Acute) Orthostatic hypertension (Acute) Chronic rhinitis (Acute) Rib fracture (Acute) Constipation by delayed colonic transit (Acute) BLANCO (dyspnea on exertion) (Acute) Other idiopathic scoliosis, thoracolumbar region (Acute) Acquired hammertoes of both feet (Acute) Nasal congestion (Acute) Pharyngitis (Acute) BPH w urinary obs/LUTS (Acute) Thyroiditis (Acute) Excessive cerumen in both ear canals (Acute) Chronic hyponatremia (Acute) Bronchomalacia (Acute) Stage III chronic kidney disease (Chronic) Dx necessary for at-risk foot care with Podiatry Diverticulitis (Chronic) GERD (gastroesophageal reflux disease) (Chronic) HTN (hypertension) (Chronic) Hypercholesterolemia (Acute) Dizziness and giddiness (Acute) Malaise and fatigue (Acute) Cerebrovascular disease (Acute) Aortic valve disorder (Acute) Prostate cancer (Chronic) Diverticular disease of colon (Acute) Iron deficiency anemia (Acute) Depressive disorder (Acute) Headache (Acute) Chronic pansinusitis (Acute) Chronic cough (Acute) White coat syndrome with hypertension (Chronic) Tests in the 120s at home Cough (Acute) per Nikki 02/10/2020 started Breo inhaler 03/02/20 F/U with Dr Jordan, next ov 04/06/20 Hip osteoarthritis (Acute) Obstructive sleep apnea (Chronic ~2017) Moderate-PAP therapy H/O endoscopy (Chronic) 11/2020 Sinusitis, chronic 11/04/21 [place] low grade esophageal ulcer, 2 cm Hiatal Hernia Acute dyspnea (Acute) Insomnia (Chronic) Sleep Clinic. 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) Onychomycosis (Acute 04/23/22) History of hemoptysis (Acute) Stenosis of carotid artery (Acute) [place] [facility] [place] Arteriosclerosis of left carotid artery (Acute) 05/22/22 Vascular Eczema (Chronic) start narrow band UVB bid at [facility] History of vascular surgery (Chronic) Stenting of L internal carotid artery, [place] [facility] [place] plav[place] Nail dystrophy (Acute) Corns and callosities (Acute) Left hip pain (Acute) Impacted cerumen, bilateral (Acute) Conductive hearing loss, external ear (Acute) Long-term current use of proton pump inhibitor therapy (Acute) Sacral back pain (Acute) referred to [facility] per note 01/02/23 [facility] [place]openia (Acute) Syncope (Chronic) Syncope (Chronic) Spondylolisthesis at L4-L5 level (Acute) Medical History History of pyloric stenosis as a child Surgical History H/O lumbosacral spine surgery H/O laminectomy (07/17/23) [facility] Bilateral laminectomy, medial facetectomy, foraminotomy L4-5; Posterior instrumentation L4-5; Posterolateral arthrodesis L4-5; Application of local autograft; Application of allograft morselized History of carotid endarterectomy 2020 H/O colonoscopy (~11/04/21) 11/04/21 Dr Tyler History of colon resection H/O aortic valve replacement History of tonsillectomy H/O shoulder surgery H/O hemorrhoidectomy History of hernia repair Family History Father Tuberculosis Mother Breast cancer Heart disease Sister Cancer Heart disease Hypertension Social History Smoking/Tobacco Use Status: Former Tobacco Use Quit Date: 09/07/1964 Pack-years: 42 Tobacco: How many years used: 14 Smoking risk assessment performed?: Yes Alcohol Intake: current Alcohol Intake frequency: 0-2 drinks per day Alcohol type: wine and hard liquor Drug use: Never Substance use type: does not use Adopted: No Caregiver/Support person: No Foster care: No Household members: spouse Housing: house Number of Children: 1 Education Level: college Do you need help understanding health information?: Never 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 Pets and animals: No Sexually active: Yes Do you think of yourself as: straight/heterosexual Current gender identity: male What is your relationship status?: How often do you talk on the phone with friends or family?: three or more times per week How often do you get together with friends or relatives?: never How often do you attend buddhist or taoism services?: decline to answer Do you belong to any clubs or organized social groups?: no Panel score (0-1 are the most socially isolated patients): 2 What type of physical activity do you participate in: other Details: 2nd Degree Shalini Rodarte Duration: 60-90 minutes/day Frequency: 1-2 times per week Seatbelt use: always Drive intox or ride w/intox rail car driver: No Working smoke detector in home: Yes Carbon monox detector in home: Yes Do you feel safe at home: Yes Do you feel safe in your relationship?: Yes
[2025-07-22] MEDS: Acetaminophen 500 MG TAB 1000 MG PO (04:46)
[2025-07-22] MEDS: Lidocaine 5% Patch 1 PATCH TP ×2 (04:47→05:12)
[2025-07-22 05:40] LABS: Abs Immature Grans 0.05 10^3/uL (0.0-0.06); HCT 40.8 % (40.0-50.0); HGB 13.8 g/dL (13.5-17.5); Immature Grans % 0.5 %; MCH 31.5 pg (27.0-33.0); MCHC 33.8 % (32.0-36.0); MCV 93 fL (80-95); MPV 10.3 fL (8.0-11.0); Platelet Count 144 10^3/uL (130-400); RBC 4.38 10^6/uL (4.36-5.78); RDW 13.8 % (11.8-14.1); RDW-SD 46.7 fL; WBC 9.64 10^3/uL (4.4-10.8)
[2025-07-22 05:41] LABS: BE (Venous) 4 mmol/L (-2-3); HCO3 (Venous) 29 mmol/L (23-28); O2 Sat (Venous) 69 %; TCO2 (Venous) 27 mmol/L (24-29); pCO2 (Venous) 52 mmHg (41-51); pO2 (Venous) 37 mmHg
--- NOTE | 2025-07-22 06:32 | DI.CT_ITS ---
Exam(s) CT HEAD CERV SPINE FACIAL WO EXAM: CT HEAD CERV SPINE FACIAL WO CLINICAL HISTORY: fall, hit head and neck. TECHNIQUE: Imaging Protocol: Axial computed tomography images with coronal and sagittal reformatted images were created and reviewed COMPARISON: CT CT HEAD WO from 03/22/2025 FINDINGS: CT BRAIN: There are no skull fractures nor fluid in the visualized paranasal sinuses. There is no evidence of intracranial hemorrhage, mass effect, or shift of midline structures. There are no extra-axial fluid collections. The ventricles are not enlarged or shifted and there is no blood within the ventricular system nor within the basal cisterns. There is abundant bilateral periventricular hypodensity consistent chronic small vessel disease, similar to previous. No obvious new territorial infarct. CT MAXILLOFACIAL BONES: There are large surgical defect the medial christian of both maxillary sinuses. There is no significant mucosal thickening nor fluid within the maxillary sinuses. There is also been resection of most of the thumb oil air cells without significant fluid in this region. Sphenoid sinuses are clear as are the frontal sinuses. Mastoid air cells are clear and there is no fluid in the middle ear cavities. There is no evidence of acute facial bone fractures. No orbital blowout fracture. Mandible is intact. Zygomatic arches are intact. CT CERVICAL SPINE: No evidence of acute fracture or significant listhesis of the cervical vertebrae. There is chronic disc space narrowing at C5-6 and C6-7 disc spaces. There is also multilevel facet arthropathy but no facet joint malalignment. The spinous process is appear intact. No significant osseous lesions evident. IMPRESSION: No acute intracranial findings on this noninfused CT scan of the brain.Chronic small-vessel white matter ischemic changes noted. No evidence of acute facial fractures nor orbital blowout fractures.Evidence of prior extensive paranasal sinus surgery. No evidence of acute sinusitis. Chronic degenerative changes in the cervical spine but no evidence of cervical spine fracture, malalignment, nor acute compromise of the cervical spinal canal. Preliminary virtual Radiology report was reviewed RADIATION DOSE DELIVERED: 1,618.73mGy.cm Total DLP DATA REPOSITORY: All CT scans at this facility are submitted to the National Radiology Data Registry (NRDR) Dose Index Registry (DIR) with the [employer] (ACR). RADIATION OPTIMIZATION: All CT scans at this facility use at least one of these dose optimization techniques: automated exposure control; mA and/or kV adjustment per patient size (includes targeted exams where dose is matched to clinical indication); or iterative reconstruction.
--- NOTE | 2025-07-22 06:33 | DI.CT_ITS ---
Exam(s) CT CHEST WO EXAM: CT CHEST WO CLINICAL HISTORY: fall, hit chest. TECHNIQUE: Multi planar reconstructions were performed. CONTRAST MATERIAL: None COMPARISON: CT CT CHEST WO from 02/15/2024 CR,XR XR CHEST 1V IN DI DEPT from 03/22/2025 FINDINGS: CHEST: LUNGS: Scarring in both lung apices but no evidence of lung contusion, infiltrates, pleural effusions, nor pneumothorax. Tiny benign calcified granulomas incidentally noted in the lung lockhart. MEDIASTINUM: Evidence of nonacute sternal fracture. No acute sternal fractures. No evidence of mediastinal hematoma. No incidental hilar nor mediastinal adenopathy. CARDIAC: Heart size normal. Calcified aortic valve noted.Caliber of the thoracic aorta is within normal limits. VISUALIZED UPPER ABDOMEN:Gallstones noted. Spleen unremarkable. Small-moderate size hiatal hernia. Some streaking is noted around the partially visualized superior pole of the left kidney. OSSEOUS: Left shoulder versus prosthesis. No rib fractures evident.No vertebral compression fractures evident.. IMPRESSION: 1. No acute trauma findings evident in the chest on this non few study. 2. There appears to be evidence of a possible healed remote sternal fracture. There presently no acute fractures in the thorax. 3. Cholelithiasis incidentally noted as is a moderate size hiatal hernia. Preliminary virtual Radiology report was reviewed. RADIATION DOSE DELIVERED: 192.9mGy.cm Total DLP DATA REPOSITORY: All CT scans at this facility are submitted to the National Radiology Data Registry (NRDR) Dose Index Registry (DIR) with the [employer] (A[employer]). RADIATION OPTIMIZATION: All CT scans at this facility use at least one of these dose optimization techniques: automated exposure control; mA and/or kV adjustment per patient size (includes targeted exams where dose is matched to clinical indication); or iterative reconstruction.
--- NOTE | 2025-07-22 06:42 | DI.VRAD_ITS ---
PROCEDURE INFORMATION: Exam: CT Head Without Contrast Exam date and time: 07/22/2025 5:32 AM Age: 85 years old Clinical indication: Injury or trauma; Blunt trauma (contusions or hematomas); Loss of consciousness unknown; Head/scalp; Loss of consciousness not known; Injury date: 07/22/25; Prior surgery; Surgery date: 6+ months; Surgery type: Shoulder replacement; Fall, hit head and neck TECHNIQUE: Imaging protocol: Computed tomography of the head without contrast. Radiation optimization: All CT scans at this facility use at least one of these dose optimization techniques: automated exposure control; mA and/or kV adjustment per patient size (includes targeted exams where dose is matched to clinical indication); or iterative reconstruction. COMPARISON: CT HEAD WO 03/22/2025 7:44 PM FINDINGS: Generalized volume loss and periventricular white matter hypodensity consistent with chronic small vessel ischemic change. Small focus of encephalomalacia in the left parietal lobe. There is atherosclerotic calcification in the internal carotid and distal vertebral arteries . There is no evidence of intraparenchymal hemorrhage, mass effect or extra-axial collection. Ventricular size is concordant with degree of volume loss. Bilateral lens surgery. Sinuses: See below. IMPRESSION: 1. No acute intracranial findings. 2. Chronic ischemic changes. 3. Tiny left mastoid sinus effusion. PROCEDURE INFORMATION: Exam: CT Maxillofacial Without Contrast Exam date and time: 07/22/2025 5:32 AM Age: 85 years old Clinical indication: Injury or trauma; Blunt trauma (contusions or hematomas); Loss of consciousness unknown; Head/scalp; Loss of consciousness not known; Injury date: 07/22/25; Prior surgery; Surgery date: 6+ months; Surgery type: Shoulder replacement; Fall, hit head and neck TECHNIQUE: Imaging protocol: Computed tomography of the face without contrast. Radiation optimization: All CT scans at this facility use at least one of these dose optimization techniques: automated exposure control; mA and/or kV adjustment per patient size (includes targeted exams where dose is matched to clinical indication); or iterative reconstruction. COMPARISON: CT HEAD WO 03/22/2025 7:44 PM FINDINGS: Paranasal sinuses: Bilateral maxillary antrectomies. Mild mucosal thickening in the ethmoid sinuses. Orbital cavities: Orbits are normal. Globes are unremarkable. Mastoid air cells: Tiny amount of fluid in left mastoid sinus. Nasal cavity: Bilateral turbinectomies. Vasculature: Atherosclerotic disease. Bones: Left chronic nasal bone fracture. Temporomandibular joints are normally aligned. No acute fracture seen. Small avulsion fracture off the nasal spine of undetermined age. Soft tissues: Unremarkable. IMPRESSION: 1. Small avulsion fracture off the nasal spine of undetermined age, likely chronic. 2. Chronic left nasal bone fracture. 3. Evidence of extensive prior sinus surgery. PROCEDURE INFORMATION: Exam: CT Cervical Spine Without Contrast Exam date and time: 07/22/2025 5:32 AM Age: 85 years old Clinical indication: Injury or trauma; Blunt trauma (contusions or hematomas); Loss of consciousness unknown; Head/scalp; Loss of consciousness not known; Injury date: 07/22/25; Prior surgery; Surgery date: 6+ months; Surgery type: Shoulder replacement; Fall, hit head and neck TECHNIQUE: Imaging protocol: Computed tomography of the cervical spine without contrast. Radiation optimization: All CT scans at this facility use at least one of these dose optimization techniques: automated exposure control; mA and/or kV adjustment per patient size (includes targeted exams where dose is matched to clinical indication); or iterative reconstruction. COMPARISON: CT HEAD WO 03/22/2025 7:44 PM FINDINGS: There is 2 mm of C4 on C5 anterolisthesis due to spondylosis. No acute fracture. Multilevel degenerative changes are noted. No critical canal stenosis. No evidence of prevertebral soft tissue swelling. Atherosclerotic disease. There is a stent in the left carotid artery. Lung apices are unremarkable. IMPRESSION: 1. No evidence of fracture or dislocation. 2. Multilevel degenerative changes noted. Dictated and Authenticated by: Romana Prado MD. Orderin Sena Lakhani MD
[2025-07-22 06:56] LABS: Troponin I 25 ng/L (<54)
[2025-07-22 06:57] LABS: INR 1.0 (0.9-1.1); PTT Activated 25.9 sec (20.6-30.2); Prothrombin Time 9.9 sec (9.1-11.1)
[2025-07-22 06:58] LABS: ALT 19 U/L (10-49); AST 25 U/L (<34); Albumin 3.5 g/dL (3.4-5.0); Alkaline Phosphatase 42 U/L (46-116); Anion Gap 5.9 mmol/L (3-11); BUN 19 mg/dL (9-23); Bilirubin, Total 0.70 mg/dL (0.2-1.2); CO2 27.7 mmol/L (20.0-31.0); Calcium 9.5 mg/dL (8.3-10.6); Chloride 98 mmol/L (98-107); Glucose 83 mg/dL (74-106); Potassium 4.6 mmol/L (3.5-5.1); Sodium 132 mmol/L (136-145); Total Protein 5.4 g/dL (5.7-8.2)
[2025-07-22 07:20] LABS: Glucose Negative (Negative)
--- NOTE | 2025-07-22 07:32 | DI.VRAD_ITS ---
PROCEDURE INFORMATION: Exam: CT Chest Without Contrast; Diagnostic Exam date and time: 07/22/2025 5:34 AM Age: 85 years old Clinical indication: Injury or trauma; Blunt trauma (contusions or hematomas); Injury date: 07/22/25; Prior surgery; Surgery date: 6+ months; Surgery type: Aortic valve replacement. Shoulder replacement; Fall, hit chest TECHNIQUE: Imaging protocol: Diagnostic computed tomography of the chest without contrast. 3D rendering (Not supervised by radiologist): MIP and/or 3D reconstructed images were created by the technologist. Radiation optimization: All CT scans at this facility use at least one of these dose optimization techniques: automated exposure control; mA and/or kV adjustment per patient size (includes targeted exams where dose is matched to clinical indication); or iterative reconstruction. COMPARISON: CT CHEST WO 02/15/2024 2:25 PM FINDINGS: Limitations: Streak artifact from left shoulder arthroplasty. Tubes, catheters and devices: Aortic valvular prosthesis. Lungs: Mild dependent changes at the lung bases. No acute lung infiltrates. Mild scarring at the lung apices. Calcified granulomas in the lungs, consistent with old granulomatous disease. No suspicious pulmonary nodules. Pleural spaces: Unremarkable. No pneumothorax. No pleural effusion. Heart: Heart size at the upper limits of normal. Coronary arteries: Mild atherosclerotic calcifications of the coronary arteries. Lymph nodes: Unremarkable. No enlarged lymph nodes. Vasculature: Unremarkable. No aortic aneurysm. Diaphragm: Small hiatal hernia. Bones/joints: Demineralization of the osseous structures limits the sensitivity for detection of fractures. No acute or suspicious osseous abnormalities identified. Healed fracture deformities of the right posterior sixth and 7th ribs. A reverse left shoulder arthroplasty is noted. The imaged portions of the hardware are intact and in good position, without evidence of loosening. Moderate multilevel degenerative changes in the mid to lower thoracic spine. Anterior flowing bridging osteophytes of the spine, consistent with diffuse idiopathic skeletal hyperostosis (DISH). Soft tissues: Unremarkable. Other findings: Gallstones are noted. IMPRESSION: 1. No acute traumatic injuries identified in the chest. 2. Cholelithiasis. Dictated and Authenticated by: Graciela Brandon MD. Orderin Sena Lakhani MD
[2025-07-22 08:02] LABS: Troponin I 28 ng/L (<54)
--- NOTE | 2025-07-22 08:19 | W.EDPROG ---
Date of service: 07/22/25 Time of Service: 08:20 Medical Decision Making CTs show no acute findings, has chronic fractures in his face from prior sinus surgeries. He has no facial tenderness so I doubt any acute fractures. He has no midline C-spine tenderness. He is feeling well and requesting discharge and given reassuring workup I feel this is reasonable. He will follow-up with his PCP as needed and return precautions given. Discharge Plan Disposition Patient Disposition: Home Condition: Good Discharge Details Clinical Impression: Fall, Neck sprain Primary Care Provider: Umesh Covarrubias ED Provider: Felipe Head Dinosaur Meds and New Rx's Prescriptions: New lidocaine [Lidoderm] 5 % adhesive patch,medicated 1 patch Topical Q24H Qty: 15 0RF Continued furosemide [Lasix] 20 mg tablet 20 mg PO QAM Qty: 90 3RF aspirin 81 mg capsule 81 mg PO DAILY pantoprazole 40 mg tablet,delayed release (DR/EC) 40 mg PO BID Qty: 180 3RF loratadine [Claritin] 10 mg tablet 20 mg PO DAILY lorazepam 1 mg tablet 1 mg PO BID PRN (Reason: insomnia/back spasms/pruritis) Qty: 60 2RF polyethylene glycol 3350 [Miralax] 17 gram/dose powder 17 g PO DAILY PRN sennosides [senna] 8.6 mg tablet 8.6 mg PO DAILY Qty: 90 1RF triamcinolone acetonide 0.025 % cream 1 applic TOPICAL BID PRN Patient Comments: APPLY A THIN LAYER TOPICALLY TO RASH TWICE DAILY UNTIL CLEAR THEN STOP rosuvastatin 20 mg tablet 20 mg PO DAILY Patient Comments: TAKE 1 TABLET BY MOUTH DAILY cholecalciferol (vitamin D3) 50 mcg (2,000 unit) capsule 2,000 unit PO DAILY lycopene 10 mg capsule 20 mg PO DAILY Rx Instructions: administer after a meal burdock root 1 cap PO BID Rx Instructions: 2 capsules BID orally; marshmallow root 480 mg capsule 2,000 mg PO BID hawthorn reid [[employer]] See Rx Instructions PO .COMPLEX Rx Instructions: 1500 mg BID per orally; tumeric 1 cap PO DAILY vitamin B complex Capsule 1 cap PO DAILY Patient Comments: PT not taking coenzyme Q10 [Co Q-10] 100 mg Capsule 300 mg PO DAILY Probiotic 3 billion cell Capsule 3,000 mmu cells PO DAILY Discharge Instructions Instructions: Whiplash Additional Instructions: At this time your imaging shows no evidence of bleed in your brain, fracture in your neck, fracture in your chest or ribs, or other significant problem. Please use the Lidoderm patches to help with the pain, use the heating pads to help with muscle achiness. Please follow-up closely with your primary care provider for reassessment and for your scheduled MRI. If you notice any worsening of your symptoms, or any new symptoms such as vomiting, diarrhea, fever, chills, shortness of breath, chest pain, numbness, weakness, or fainting , please return immediately to the emergency department for reevaluation. Please follow up with your primary care provider as soon as possible for reassessment and reevaluation. As always, it was a pleasure participating in your medical care today. Stand Alone Forms: Portal Information Referrals: Umesh Covarrubias DO [Primary Care Provider, Medicine]
== END 2025-07-22 10:07 | disposition home or self-care (01) ==
PROVIDERS: Student in an Organized Health Care Education/Training Program; Emergency Provider Emergency Medicine; PCP Family Medicine
DX: S13.9XXA Sprain of joints and ligaments of unspecified parts of neck, initial encounter (principal); W19.XXXA Unspecified fall, initial encounter
CPT/HCPCS: 99284 ×2; 00123; 71250; 80053; 82805; 70450; 70486; 72125; 81003; 84484; 85025; 85610; 85730

== ENCOUNTER → 2025-07-24 14:34 | Outpatient (BNVA) | payer MEDICARE, OTHER, SELFPAY | PROVIDERS: PCP Family Medicine; Referring Provider Family Medicine; Visit Provider Podiatrist | DX: L60.3 Nail dystrophy (principal); L84 Corns and callosities; M79.674 Pain in right toe(s); M79.675 Pain in left toe(s); Z98.890 Other specified postprocedural states; I73.89 Other specified peripheral vascular diseases; N18.32 Chronic kidney disease, stage 3b; L43.9 Lichen planus, unspecified; R09.89 Other specified symptoms and signs involving the circulatory and respiratory systems; L65.9 Nonscarring hair loss, unspecified; R20.8 Other disturbances of skin sensation; R23.4 Changes in skin texture; R23.8 Other skin changes; L60.2 Onychogryphosis | CPT/HCPCS: 11719; 11720 ==

== ENCOUNTER → 2025-07-25 02:06 | Outpatient (CLI) | payer MEDICARE, OTHER, SELFPAY ==
--- NOTE | 2025-07-25 07:00 | DI.US_ITS ---
Exam(s) US NEEDLE LOCAL OTHER WO RAD EXAM: US NEEDLE LOCAL OTHER WO RAD CLINICAL HISTORY: Lesion of unknown significance,ULTRASOUND GUIDED BX,MASS LT SUBMANDIBULAR G. COMPARISON: No exams were available for comparison TECHNIQUE: Ultrasound was provided for Dr. Garcia for guidance with performing biopsy of the left submandibular gland lesion. FINDINGS: Please see procedure note for details. DATA REPOSITORY:
--- NOTE | 2025-07-25 11:25 | PAPNONF_PTH ---
PATIENT: Gustabo Avelar LOC: [facility] U#:[id number] AGE/SX: 85/M ROOM: RE07/25/[address]: Roosevelt Garcia MD : 1940 BED: DIS: SPEC #: [id number] RECD: 07/25/25 12:43 STATUS: BEBOMaria Luisa RENolvia #: [id number] EDMUND: 07/25/25 11:[address]: Roosevelt Garcia DEPT: [facility] Cyt[facility] RECD BY: Marley Vásquez ENTERED: 07/25/25 12:44 SP TYPE: TAMRA IBANEZ DR: Umesh Covarrubias DO Tissues: 1 - BODY FLUID CYTO-FINE NEEDLE ASPIRATE-[facility] Procedures: BODY FLUID CYTO-FINE NEEDLE ASPIRATE[facility] Comments: [id number] (PATH FNA CONSULT) (REFRIGERATED)
--- NOTE | 2025-07-25 12:48 | W.PROCNOTE ---
Date of service: 07/25/25 Time of Service: 12:48 Procedure Note Date of procedure: 07/25/25 Procedure: Ultrasound-guided FNA, left submandibular gland mass, pathology present Surgeon/Proceduralist/Physician: Roosevelt Garcia Procedure Diagnosis: Left submandibular gland lesion Procedure Indications: The patient has a left-sided submandibular mass picked up on CT scan with calcifications. I reviewed the findings with the patient and his . We discussed options including watchful waiting, second opinion, or FNA. They wish to proceed with FNA. Risks of FNA including bleeding, infection, failure to come up with an answer, and need for further treatment were discussed at length. Written consent was obtained. The below was then performed. Procedure Description: The patient was positioned in supine position with his head turned to the right and prepped and draped in appropriate fashion. Ultrasound was used to localize the left sided submandibular gland mass, and then 2% lidocaine with 1/100,000 epinephrine was injected in the skin and subcutaneous tissues overlying the mass. A 25-gauge needle was then passed into the submandibular nodule using ultrasound for guidance. 3 complete passes were made, none of which revealed any cellularity. The residual wash from the biopsies was placed in CytoLyt and taken by pathology for examination. After discussion with the patient, the decision was made not to perform any further attempts at FNA, as the needle had clearly entered in the nodule, and there was no obvious cellularity. After ensuring adequate hemostasis, a Band-Aid was applied and the patient was then allowed to sit, stand, and ambulate. His vital signs were stable. He will remove the bandage in a couple of hours and not replace it. They will call with any signs of infection or any concerns. They will call if they do not hear from me within 1 week with regard to the findings on final pathology. Further care will depend upon the findings. He and his had no further questions. He may use Tylenol or ibuprofen for any discomfort. They had no further questions. They are comfortable with this plan.
== END ==
LOC: DI 02:06
PROVIDERS: PCP Family Medicine; Visit Provider Otolaryngology
DX: K11.8 Other diseases of salivary glands (principal)
CPT/HCPCS: 10005; 76942; 88104

== ENCOUNTER 2025-07-27 13:14 | Outpatient (CLI) | payer MEDICARE, OTHER, SELFPAY | END 2025-07-27 13:15 | disposition home or self-care (01) | LOC: CARDOPNVT 13:14 | PROVIDERS: PCP Family Medicine; Visit Provider Family Medicine | DX: G45.9 Transient cerebral ischemic attack, unspecified (principal) | CPT/HCPCS: 93246 ==

== ENCOUNTER 2025-08-13 08:12 | Emergency (ER) | payer MEDICARE, OTHER, SELFPAY ==
[2025-08-13] VITALS (14 sets, daily range): BP systolic 149–191; BP diastolic 44–67; PULSE 69–81; RESP 12–26; TEMP 36.5; O2SAT 94–98
--- NOTE | 2025-08-13 08:30 | RT.EKG_ITS ---
APPROVED REPORT Exam: Resting ECG Reason for Exam: dizzy Patient Location: E HR:71 bpm ECG Measurements Heart Rate 71 AXIS NH 183 P 5 QRSd 84 QRS 11 QT 384 T 41 QTc 418 Conclusion Sinus rhythm...normal P axis, V-rate 60- 99
[2025-08-13 09:08] LABS: Abs Immature Grans 0.05 10^3/uL (0.0-0.06); HCT 42.7 % (40.0-50.0); HGB 14.6 g/dL (13.5-17.5); Immature Grans % 0.5 %; MCH 31.4 pg (27.0-33.0); MCHC 34.2 % (32.0-36.0); MCV 92 fL (80-95); MPV 10.1 fL (8.0-11.0); Platelet Count 160 10^3/uL (130-400); RBC 4.65 10^6/uL (4.36-5.78); RDW 13.4 % (11.8-14.1); RDW-SD 45.5 fL; WBC 10.61 10^3/uL (4.4-10.8)
[2025-08-13] MEDS: Lactated Ringers 1,000 ML 125 ML IV (09:13)
[2025-08-13 09:25] LABS: Lipase 28 U/L (<53)
[2025-08-13 09:26] LABS: Magnesium 1.9 mg/dL (1.6-2.6)
[2025-08-13 09:27] LABS: ALT 14 U/L (10-49); AST 21 U/L (<34); Albumin 4.0 g/dL (3.2-5.0); Alkaline Phosphatase 44 U/L (46-116); Anion Gap 7.1 mmol/L (3-11); BUN 19 mg/dL (9-23); Bilirubin, Total 0.70 mg/dL (0.2-1.2); CO2 26.9 mmol/L (20.0-31.0); Calcium 9.0 mg/dL (8.3-10.6); Chloride 105 mmol/L (98-107); Glucose 104 mg/dL (74-106); Potassium 4.2 mmol/L (3.5-5.1); Sodium 139 mmol/L (136-145); Total Protein 6.1 g/dL (5.7-8.2); Troponin I 27 ng/L (<54)
[2025-08-13 09:37] LABS: Glucose Negative (Negative)
[2025-08-13 10:23] LABS: Troponin I 29 ng/L (<54)
--- NOTE | 2025-08-13 11:04 | W.ED.GENAD ---
Discharge Plan Disposition Patient Disposition: Home Condition: Stable Discharge Details Clinical Impression: Acute constipation, Acute dehydration, Weakness Primary Care Provider: Umesh Covarrubias ED Provider: Valentino Almodovar Home Meds and New Rx's Prescriptions: Continued furosemide [Lasix] 20 mg tablet 20 mg PO QAM Qty: 90 3RF aspirin 81 mg capsule 81 mg PO DAILY pantoprazole 40 mg tablet,delayed release (DR/EC) 40 mg PO BID Qty: 180 3RF loratadine [Claritin] 10 mg tablet 20 mg PO DAILY lorazepam 1 mg tablet 1 mg PO BID PRN (Reason: insomnia/back spasms/pruritis) Qty: 60 2RF polyethylene glycol 3350 [Miralax] 17 gram/dose powder 17 g PO DAILY PRN sennosides [senna] 8.6 mg tablet 8.6 mg PO DAILY Qty: 90 1RF triamcinolone acetonide 0.025 % cream 1 applic TOPICAL BID PRN Patient Comments: APPLY A THIN LAYER TOPICALLY TO RASH TWICE DAILY UNTIL CLEAR THEN STOP rosuvastatin 20 mg tablet 20 mg PO DAILY Patient Comments: TAKE 1 TABLET BY MOUTH DAILY cholecalciferol (vitamin D3) 50 mcg (2,000 unit) capsule 2,000 unit PO DAILY lycopene 10 mg capsule 20 mg PO DAILY Rx Instructions: administer after a meal burdock root 1 cap PO BID Rx Instructions: 2 capsules BID orally; marshmallow root 480 mg capsule 2,000 mg PO BID hawthorn alvarez [Janeth Alvarez] See Rx Instructions PO .COMPLEX Rx Instructions: 1500 mg BID per orally; tumeric 1 cap PO DAILY vitamin B complex Capsule 1 cap PO DAILY Patient Comments: PT not taking coenzyme Q10 [Co Q-10] 100 mg Capsule 300 mg PO DAILY Probiotic 3 billion cell Capsule 3,000 mmu cells PO DAILY lidocaine [Lidoderm] 5 % adhesive patch,medicated 1 patch Topical Q24H Qty: 15 0RF Discharge Instructions Instructions: Constipation, Adult ED, Dehydration, Adult ED Additional Instructions: Please maintain a clear liquid diet over the next couple days. Continue to take sennosides as prescribed. Use polyethylene glycol as prescribed. Your blood pressure was elevated today. Be sure to discuss this with your doctor. Additional outpatient diagnostic testing and treatment modification may be necessary should blood pressure remain elevated. Please follow-up with your primary care physician. Call tomorrow. Return to the emergency department immediately for any worsening or new concerning symptoms. Stand Alone Forms: Portal Information Referrals: Umesh Covarrubias DO [Primary Care Provider, Medicine] Discharge Data Discharge Date/Time-TO BE ENTERED AT DEPARTURE: 08/13/25 13:49 HPI General Mode of arrival: ambulatory. Date/Time Provider Initiated Documentation: 08/13/25 08:35. Limitations to Documentation: no limitations. Information obtained by: patient. HPI Narrative: HISTORY OF PRESENT ILLNESS This is an 85-year-old male with a history of hypertension presenting withno bowel movement for 3 to 4 days, associated generalized weakness, not eating or drinking normally. He is accompanied by his via phone. The patient reports that he reduced his lorazepam dosage, which he believes led to constipation. He experienced a lack of bowel movement for 4 days but had a significant bowel movement after arrival here in the emergency department prior to my assessment. He now feels significantly improved after the bowel movement and expresses a desire to return home. His appetite has been poor due to the constipation. He has been on lorazepam for approximately 2 months and has not taken it for the past 4 days without experiencing any tremors. He is currently taking Colace. The patient also reports difficulty walking, necessitating assistance from his . This is not a usual occurrence for him. He notes generalized weakness with no focal deficits. He does not consume alcohol or use opioid pain medications. He has a history of heart murmur and underwent aortic valve replacement in the past. He has a history of CVA in the past. He reports no history of congestive heart failure. . Related Data Home Medications ?Medication ?Instructions ?Recorded ?Confirmed coenzyme Q10 100 mg capsule (Co 300 mg PO DAILY 09/03/19 08/13/25 Q-10) lactobacillus combination no.4 3 3,000 mmu cells PO DAILY 09/03/19 08/13/25 billion cell capsule (Probiotic) vitamin B complex 1 cap PO DAILY 09/03/19 08/13/25 aspirin 81 mg capsule 81 mg PO DAILY 12/05/21 08/13/25 polyethylene glycol 3350 17 17 g PO DAILY PRN 12/21/23 08/13/25 gram/dose oral powder (Miralax) pantoprazole 40 mg tablet,delayed 40 mg PO BID #180 tabs 02/14/25 08/13/25 release cholecalciferol (vitamin D3) 50 2,000 unit PO DAILY 03/03/25 08/13/25 mcg (2,000 unit) capsule rosuvastatin 20 mg tablet 20 mg PO DAILY 03/03/25 08/13/25 triamcinolone acetonide 0.025 % 1 applic topical BID PRN 03/03/25 08/13/25 topical cream burdock root 1 cap PO BID 03/22/25 08/13/25 km alvarez See Rx Instructions PO .COMPLEX 03/22/25 08/13/25 lycopene 10 mg capsule 20 mg PO DAILY 03/22/25 08/13/25 marshmallow root 480 mg capsule 2,000 mg PO BID 03/22/25 08/13/25 tumeric 1 cap PO DAILY 03/22/25 08/13/25 furosemide 20 mg tablet (Lasix) 20 mg PO QAM #90 tabs 03/29/25 08/13/25 sennosides 8.6 mg tablet (senna) 8.6 mg PO DAILY #90 tabs 04/21/25 08/13/25 loratadine 10 mg tablet (Claritin) 20 mg PO DAILY 06/16/25 08/13/25 lorazepam 1 mg tablet 1 mg PO BID PRN insomnia/back 07/18/25 08/13/25 spasms/pruritis #60 tabs lidocaine 5 % topical patch 1 patch topical Q24H #15 ea 07/22/25 08/13/25 (Lidoderm) Previous Rx's ?Medication ?Instructions ?Recorded pantoprazole 40 mg tablet,delayed 40 mg PO BID #180 tabs 02/14/25 release furosemide 20 mg tablet (Lasix) 20 mg PO QAM #90 tabs 03/29/25 sennosides 8.6 mg tablet (senna) 8.6 mg PO DAILY #90 tabs 04/21/25 lorazepam 1 mg tablet 1 mg PO BID PRN insomnia/back 07/18/25 spasms/pruritis #60 tabs lidocaine 5 % topical patch 1 patch topical Q24H #15 ea 07/22/25 (Lidoderm) Allergies Allergy/AdvReac Type Severity Reaction Status Date / Time metronidazole Allergy Intermediate Skin Rash, Verified 08/13/25 08:34 swelling, itchy sulfamethoxazole (From Allergy turns red Verified 08/13/25 08:34 Bactrim) trimethoprim (From Bactrim) Allergy turns red Verified 08/13/25 08:34 ropinirole AdvReac Severe insomina, Verified 08/13/25 08:34 weakness, intense fatigue zolpidem (From Ambien) AdvReac sleep Verified 08/13/25 08:34 walk General Stated Complaint: Abd Prob ANIBAL: 3 Exam Const General: cooperative and no acute distress [facility] Head: normocephalic and atraumatic Eyes Conjunctivae: normal conjunctivae Sclera: normal sclerae EOM: EOM intact bilaterally Resp Auscultation: clear to auscultation bilaterally, no rales, no rhonchi and no wheezes Cardio Jugular venous pressure: no JVD Rate: regular rate and not tachycardic Rhythm: regular rhythm GI Palpation: soft, not firm, no guarding, no masses, not rigid and nontender Skin General skin exam: no rashes or lesions noted Neuro General: patient alert, patient awake, patient oriented x3, tone normal and CN's II-XI intact bilaterally Cranial Nerves: CN's II-XI intact bilaterally Cognition: normal cognition Speech: speech normal Motor: strength 5/5 throughout Sensory Exam: no sensory deficits noted Coordination: [id number] test normal, [id number] test normal and rapid alternating movement UE normal (nl) Extrem General: no edema Psych Appearance: grossly normal Mental Status: mental status grossly normal Course Vital Signs Vital signs: Vital Signs Temperature 36.5 C 08/13/25 08:16 Pulse 80 08/13/25 08:16 Blood Pressure 191/67 H 08/13/25 08:16 Pulse Oximetry 95 08/13/25 08:16 Temperature 36.5 C 08/13/25 09:33 Pulse 72 08/13/25 09:33 Pulse 69 08/13/25 09:32 Respiratory Rate 20 08/13/25 09:33 Blood Pressure 183/52 H 08/13/25 09:33 Blood Pressure Mean 99 08/13/25 09:32 Pulse Oximetry 96 08/13/25 09:33 Lab/Test Results Lab/Test Results: Laboratory Tests Range/Units 08/13/25 08/13/25 08/13/25 08:50 09:23 10:01 WBC (4.4-10.8) 10^3/uL 10.61 RBC (4.36-5.78) 10^6/uL 4.65 Hgb (13.5-17.5) g/dL 14.6 Hct (40.0-50.0) % 42.7 MCV (80-95) fL 92 MCH (27.0-33.0) pg 31.4 MCHC (32.0-36.0) % 34.2 RDW (11.8-14.1) % 13.4 Plt Count (130-400) 10^3/uL 160 MPV (8.0-11.0) fL 10.1 Immature Gran % % 0.5 Neutrophils % % 67.2 Lymphocytes % % 16.5 Monocytes % % 7.0 Eosinophils % % 8.2 Basophils % % 0.6 Nucleated RBC % (0.0-0.3) % 0.0 Absolute Neutrophils (1.2-6.7) 10^3/uL 7.14 H Absolute Lymphocytes (1.2-3.4) 10^3/uL 1.75 Absolute Monocytes (0.1-0.8) 10^3/uL 0.74 Absolute Eosinophils (0.0-0.7) 10^3/uL 0.87 H Absolute Basophils (0.0-0.2) 10^3/uL 0.06 Sodium (136-145) mmol/L 139 Potassium (3.5-5.1) mmol/L 4.2 Chloride (98-107) mmol/L 105 Carbon Dioxide (20.0-31.0) mmol/L 26.9 Anion Gap (3-11) mmol/L 7.1 BUN (9-23) mg/dL 19 Creatinine (0.73-1.18) mg/dL 1.83 H Est GFR (CKD-EPI 2020) (mL/min/1.73m2) 35.18 Glucose (74-106) mg/dL 104 Calcium (8.3-10.6) mg/dL 9.0 Magnesium (1.6-2.6) mg/dL 1.9 Total Bilirubin (0.2-1.2) mg/dL 0.70 AST (<34) U/L 21 ALT (10-49) U/L 14 Alkaline Phosphatase (46-116) U/L 44 L Troponin I (<54) ng/L 27 29 Total Protein (5.7-8.2) g/dL 6.1 Albumin (3.2-5.0) g/dL 4.0 Lipase (<53) U/L 28 Urine Color (Yellow) Yellow Urine Clarity (Clear) Clear Urine pH (5-8) 7.0 Ur Specific [place] (1.005-1.025) 1.015 Urine Protein (Neg-Trace) mg/dL Negative Urine Ketones (Negative) mg/dL Negative Urine Blood (Negative) Negative Urine Nitrite (Negative) Negative Urine Bilirubin (Negative) Negative Urine Urobilinogen (Up to 0.2) mg/dL 0.2 Ur Leukocyte Esterase (Negative) Negative Urine Glucose (Negative) mg/dL Negative Medical Decision Making ASSESSMENT AND PLAN Initial Assessment: 85-year-old male presenting with feeling unsteady, no bowel movement for 3 to 4 days. Hypertensive. Differential Diagnosis: - Constipation: No bowel movement for 3 to 4 days. Improved after large bowel movement. Blood work normal. Appears dehydrated. Administer full liter of fluid. Increase fluid intake including soups and water. - Dehydration - Unsteadiness: Difficulty walking. Not normal for him. Full neurologic exam performed. No focal findings. Not a new stroke. Initially unstable upon standing. Improved with walking. Related to dehydration and constipation. Neely better after fluids. - Lorazepam withdrawal ED Course: -Screening EKG was reviewed and interpreted by me: Please report, nondiagnostic. - Labs reviewed: Chronic kidney disease noted. No leukocytosis. Urinalysis negative. - Administered crystalloid bolus 1 L. - Neurologic exam performed. No focal findings. - Walked down hallway. Initially unstable. Improved with walking. - Patient requesting discharge. Patient stable and improved. Usual and customary discharge instructions were reviewed. Patient was encouraged to maintain adequate hydration. He was encouraged to continue stool softeners. Discharge plan was reviewed with the patient and his . Clinical Impression: - Constipation - Generalized weakness - Lorazepam withdrawal Disposition: - Discharge: Discharged home after receiving fluids and improving clinically. Follow-Up: Increase fluid intake including soups and water. Continue discontinuing lorazepam. Patient Education: Increase fluid intake including soups and water. Safe to continue discontinuing lorazepam. This document was written with the assistance of ERICA Burns. The patient consented to its use. Lab Data Lab results reviewed: Yes I reviewed the patient's lab results. Labs: Laboratory Tests Range/Units 08/13/25 08/13/2525 08:50 09:23 10:01 WBC (4.4-10.8) 10^3/uL 10.61 RBC (4.36-5.78) 10^6/uL 4.65 Hgb (13.5-17.5) g/dL 14.6 Hct (40.0-50.0) % 42.7 MCV (80-95) fL 92 MCH (27.0-33.0) pg 31.4 MCHC (32.0-36.0) % 34.2 RDW (11.8-14.1) % 13.4 Plt Count (130-400) 10^3/uL 160 MPV (8.0-11.0) fL 10.1 Immature Gran % % 0.5 Neutrophils % % 67.2 Lymphocytes % % 16.5 Monocytes % % 7.0 Eosinophils % % 8.2 Basophils % % 0.6 Nucleated RBC % (0.0-0.3) % 0.0 Absolute Neutrophils (1.2-6.7) 10^3/uL 7.14 H Absolute Lymphocytes (1.2-3.4) 10^3/uL 1.75 Absolute Monocytes (0.1-0.8) 10^3/uL 0.74 Absolute Eosinophils (0.0-0.7) 10^3/uL 0.87 H Absolute Basophils (0.0-0.2) 10^3/uL 0.06 Sodium (136-145) mmol/L 139 Potassium (3.5-5.1) mmol/L 4.2 Chloride (98-107) mmol/L 105 Carbon Dioxide (20.0-31.0) mmol/L 26.9 Anion Gap (3-11) mmol/L 7.1 BUN (9-23) mg/dL 19 Creatinine (0.73-1.18) mg/dL 1.83 H Est GFR (CKD-EPI 2020) (mL/min/1.73m2) 35.18 Glucose (74-106) mg/dL 104 Calcium (8.3-10.6) mg/dL 9.0 Magnesium (1.6-2.6) mg/dL 1.9 Total Bilirubin (0.2-1.2) mg/dL 0.70 AST (<34) U/L 21 ALT (10-49) U/L 14 Alkaline Phosphatase (46-116) U/L 44 L Troponin I (<54) ng/L 27 29 Total Protein (5.7-8.2) g/dL 6.1 Albumin (3.2-5.0) g/dL 4.0 Lipase (<53) U/L 28 Urine Color (Yellow) Yellow Urine Clarity (Clear) Clear Urine pH (5-8) 7.0 Ur Specific [place] (1.005-1.025) 1.015 Urine Protein (Neg-Trace) mg/dL Negative Urine Ketones (Negative) mg/dL Negative Urine Blood (Negative) Negative Urine Nitrite (Negative) Negative Urine Bilirubin (Negative) Negative Urine Urobilinogen (Up to 0.2) mg/dL 0.2 Ur Leukocyte Esterase (Negative) Negative Urine Glucose (Negative) mg/dL Negative PFSH All Active Problems Weakness (Acute) Acute dehydration (Acute) Acute constipation (Acute) Neck sprain (Acute) Fall (Acute) TIA (transient ischemic attack) (Acute) History of excessive cerumen (Acute) Atopic dermatitis, unspecified (Acute) 07/10/25 [place] [facility] [place]'d Dupixent Advanced care planning/counseling discussion (Acute) Palliative care patient (Acute) Mass of left submandibular gland (Acute) Tinea pedis (Acute) Diastolic congestive heart failure (Acute) Hyperlipidemia (Chronic) CHF (congestive heart failure) (Chronic) CHF (congestive heart failure) (Acute) S/P TAVR (transcatheter aortic valve replacement) (Chronic) CVA (cerebral vascular accident) (Chronic) Sepsis (Acute) Acute dehydration (Acute) Diarrhea (Acute) Leukocytosis (Acute) Insomnia (Acute) Globus sensation (Acute) Memory loss (Acute) Ulcer of right foot with fat layer exposed (Acute) Pain in left foot (Acute) Mechanical low back pain (Acute) Right sided abdominal pain (Acute) Pain disorder associated with psychological and physical factors (Acute) Lumbar spondylosis (Acute) Post-laminectomy syndrome (Acute) Poor appetite (Acute) COVID-19 (Acute) Chronic headache (Acute) Orthostatic hypertension (Acute) Chronic rhinitis (Acute) Rib fracture (Acute) Constipation by delayed colonic transit (Acute) BLANCO (dyspnea on exertion) (Acute) Other idiopathic scoliosis, thoracolumbar region (Acute) Acquired hammertoes of both feet (Acute) Nasal congestion (Acute) Pharyngitis (Acute) BPH w urinary obs/LUTS (Acute) Thyroiditis (Acute) Excessive cerumen in both ear canals (Acute) Chronic hyponatremia (Acute) Bronchomalacia (Acute) Stage III chronic kidney disease (Chronic) Dx necessary for at-risk foot care with Podiatry Diverticulitis (Chronic) GERD (gastroesophageal reflux disease) (Chronic) HTN (hypertension) (Chronic) Hypercholesterolemia (Acute) Dizziness and giddiness (Acute) Malaise and fatigue (Acute) Cerebrovascular disease (Acute) Aortic valve disorder (Acute) Prostate cancer (Chronic) Diverticular disease of colon (Acute) Iron deficiency anemia (Acute) Depressive disorder (Acute) Headache (Acute) Chronic pansinusitis (Acute) Chronic cough (Acute) White coat syndrome with hypertension (Chronic) Tests in the 120s at home Cough (Acute) per Nikki 02/10/2020 started Breo inhaler 03/02/20 F/U with Dr Jordan, next ov 04/06/20 Hip osteoarthritis (Acute) Obstructive sleep apnea (Chronic ~2017) Moderate-PAP therapy H/O endoscopy (Chronic) 11/2020 Sinusitis, chronic 11/04/21 [place] low grade esophageal ulcer, 2 cm Hiatal Hernia Acute dyspnea (Acute) Insomnia (Chronic) Sleep Clinic. 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) Onychomycosis (Acute 04/23/22) History of hemoptysis (Acute) Stenosis of carotid artery (Acute) 05/22/22 [facility] [place] Arteriosclerosis of left carotid artery (Acute) 05/22/22 Vascular Eczema (Chronic) start narrow band UVB bid at [facility] History of vascular surgery (Chronic) Stenting of L internal carotid artery, 06/28, [facility] [place], started plavix Nail dystrophy (Acute) Corns and callosities (Acute) Left hip pain (Acute) Impacted cerumen, bilateral (Acute) Conductive hearing loss, external ear (Acute) Long-term current use of proton pump inhibitor therapy (Acute) Sacral back pain (Acute) referred to Spine Clinic per note 01/02/23 [facility] [place] Osteopenia (Acute) Syncope (Chronic) Syncope (Chronic) Spondylolisthesis at L4-L5 level (Acute) Medical History History of pyloric stenosis as a child Surgical History H/O lumbosacral spine surgery H/O laminectomy (07/17/23) [facility] Bilateral laminectomy, medial facetectomy, foraminotomy L4-5; Posterior instrumentation L4-5; Posterolateral arthrodesis L4-5; Application of local autograft; Application of allograft morselized History of carotid endarterectomy 2020 H/O colonoscopy (~11/04/21) 11/04/21 Dr Tyler History of colon resection H/O aortic valve replacement History of tonsillectomy H/O shoulder surgery H/O hemorrhoidectomy History of hernia repair Family History Father Tuberculosis Mother Breast cancer Heart disease Sister Cancer Heart disease Hypertension Social History Smoking/Tobacco Use Status: Former Tobacco Use Quit Date: 09/07/1964 Pack-years: 42 Tobacco: How many years used: 14 Smoking risk assessment performed?: Yes Alcohol Intake: current Alcohol Intake frequency: 0-2 drinks per day Alcohol type: wine and hard liquor Drug use: Never Substance use type: does not use Adopted: No Caregiver/Support person: No Foster care: No Household members: spouse Housing: house Number of Children: 1 Education Level: college Do you need help understanding health information?: Never 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 Pets and animals: No Sexually active: Yes Do you think of yourself as: straight/heterosexual Current gender identity: male What is your relationship status?: How often do you talk on the phone with friends or family?: three or more times per week How often do you get together with friends or relatives?: never How often do you attend orthodox or christian services?: decline to answer Do you belong to any clubs or organized social groups?: no Panel score (0-1 are the most socially isolated patients): 2 What type of physical activity do you participate in: other Details: 2nd Degree Shalini Rodarte Duration: 60-90 minutes/day Frequency: 1-2 times per week Seatbelt use: always Drive intox or ride w/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
== END 2025-08-13 13:49 | disposition home or self-care (01) ==
PROVIDERS: Emergency Provider Student in an Organized Health Care Education/Training Program; PCP Family Medicine
DX: R53.1 Weakness (principal); E86.0 Dehydration; K59.00 Constipation, unspecified; I10 Essential (primary) hypertension
CPT/HCPCS: 36415; 80053; 83690; 93005; 96360; 96361; 99284; 81003; 83735; 84484; 85025; 93010

== ENCOUNTER → 2025-08-14 00:49 | Outpatient (CLI) | payer MEDICARE, OTHER, SELFPAY ==
--- NOTE | 2025-08-14 07:15 | DI.MRI_ITS ---
Exam(s) MR BRAIN WO EXAM: MR BRAIN WO CLINICAL HISTORY: Likely L sided TIA,45.9 TECHNIQUE: Multiplanar multisequence MRI of the brain was performed. COMPARISON: MR MR BRAIN WO from 04/29/2024 FINDINGS: CEREBRAL PARENCHYMA: There is no evidence of acute intracranial hemorrhage, mass effect, or shift of midline structures. There are no extra-axial fluid collections. Ventricles are not enlarged or shifted. There is no significant new focal signal abnormality in the cerebellar hemispheres nor within the anette, midbrain, and thalami. Again noted is abundant abnormal bilateral periventricular signal abnormality consistent with chronic small vessel disease, similar to previous. There There is no significant focal signal abnormality evident on diffusion imaging to suggest acute ischemic event. No restricted diffusion. SWI imaging again reveals a few foci of susceptibility artifact in the right- side of the brain which are unchanged and consistent with prior microhemorrhages, previously documented PITUITARY GLAND: No mass nor parasellar abnormality. No obvious abnormality in the cavernous sinuses. FLOW VOIDS: The expected flow void are noted. No evidence of obvious aneurysm nor obvious vascular malformation. PARANASAL SINUSES: The visualized paranasal sinuses appear unremarkable. No obvious finding ORBITS: Previous bilateral cataract surgery. No significant focal intraorbital findings. IMPRESSION: Compared to the prior MRI scan of 04/29/2024 there is again noted prominent bilateral periventricular signal abnormality consistent with chronic small vessel disease. There are no new areas of restricted diffusion to suggest acute ischemic event. DATA REPOSITORY:
--- NOTE | 2025-08-14 14:30 | DI.US_ITS ---
Exam(s) US CAROTID EXAM: US CAROTID CLINICAL HISTORY: Previous endarterectomy, evaluate for patency,tia,645.9. TECHNIQUE: Ultrasound carotids performed using grayscale, color-flow, and spectral Doppler imaging. COMPARISON: MR MR BRAIN WO from 10/16/[address] HEAD CERV SPINE FACIAL WO from 07/22/2025 US US NEEDLE LOCAL OTHER WO RAD from 07/25/2025 MR MR BRAIN WO from 08/14/2025 FINDINGS: CAROTID ARTERIES: On the right side there is partially calcified plaque evident in the distal common carotid artery and right carotid bulb. Velocities recorded are upper normal indicating amount of stenosis is less than 50 percent. On the left side there is both calcified and noncalcified plaque at the mid common carotid artery level as well as calcified plaque in the distal left common carotid artery. There is an endovascular stent at level left carotid bulb and proximal left ICA. Although there is no prominent plaque within this stent evident on the submitted images, there is elevated peak systolic velocity in the stent recorded at 150 cm/sec which would indicate moderate stenosis of between 50-69 percent. Similar recording also seen in the distal left ICA. VERTEBRAL ARTERIES: Antegrade flow in both vertebral arteries. Measurements: R Bulb: 81.3cm/s PS / 7.6cm/s ED R CCA: 86.7cm/s PS / 5.3cm/s ED R ECA: 269.5cm/s PS / 0cm/s ED R ICA Prox: 83.1cm/s PS / 4.8cm/s ED R ICA Mid: 116.6cm/s PS / 12.6cm/s ED R ICA Distal: 120.3cm/s PS /7.1cm/s ED R Vert: 58.9cm/s PS / 0cm/s ED R SVR: 1.4 R DVR: 1.3 L Bulb: 133.1cm/s PS / 10.8cm/s ED L CCA: 120.3cm/s PS / 5.3cm/s ED L ECA: 209cm/s PS / 0cm/s ED L ICA Prox: 149.7cm/s PS / 6.3cm/s ED L ICA Mid: 116.6cm/s PS / 8.9cm/s ED L ICA Distal: 148.1cm/s PS / 10.2cm/s ED L Vert: 78.7cm/s PS / 0cm/s ED L SVR: 1.2 L DVR: 1.2 IMPRESSION: There is an endovascular stent noted in the left carotid bulb-proximal left ICA. Although the images do not reveal prominent intra stent plaque, there are some elevated velocities at and distal to this level, indicating moderate stenosis of 50-69 percent. Recommend correlation with CT angiography. There is milder stenosis less than 50 percent on the opposite-right side Antegrade flow is demonstrated in both vertebral arteries. Criteria for Carotid Stenosis: Normal: ICA PSV <125 cm/s no plaque or intimal thickening is visible. <50% stenosis: ICA PSV <125 cm/s and plaque or intimal thickening is visible. 50-69% stenosis: ICA PSV is 125-250 cm/s and plaque is visible. >70% stenosis to near occlusion: ICA PSV >250 cm/s with visible plaque and luminal narrowing. DATA REPOSITORY:
== END ==
LOC: DI 00:49
PROVIDERS: PCP Family Medicine; Visit Provider Family Medicine
DX: G45.9 Transient cerebral ischemic attack, unspecified (principal); I67.82 Cerebral ischemia
CPT/HCPCS: 70551; 93880

== ENCOUNTER 2025-08-14 10:06 | Outpatient (CLI) | payer MEDICARE, OTHER, SELFPAY ==
[2025-08-14 14:17] LABS: Cholesterol 110 mg/dL (<200); HDL Cholesterol 47 mg/dL (>40)
== END 2025-08-14 10:07 | disposition home or self-care (01) ==
LOC: LBO 10:07
PROVIDERS: PCP Family Medicine; Visit Provider Family Medicine
DX: G45.9 Transient cerebral ischemic attack, unspecified (principal)
CPT/HCPCS: 36415; 80061

== ENCOUNTER 2025-08-19 06:18 | Emergency (ER) | payer MEDICARE, OTHER, SELFPAY ==
[2025-08-19 05:56] VITALS: BP 140/38; PULSE 85; RESP 16; TEMP 36.3; O2SAT 95
[2025-08-19 06:04] VITALS: BP 140/38; PULSE 85; RESP 16; TEMP 36.3; O2SAT 95
--- NOTE | 2025-08-19 06:23 | W.ED.GENAD ---
Discharge Plan Discharge Details Chief Complaint: GenMedical Clinical Impression: Acute wrist pain Primary Care Provider: Umesh Covarrubias ED Provider: Romana Solomon Home Meds and New Rx's Prescriptions: No Action aspirin 81 mg capsule 81 mg PO DAILY pantoprazole 40 mg tablet,delayed release (DR/EC) 40 mg PO BID Qty: 180 3RF loratadine [Claritin] 10 mg tablet 20 mg PO DAILY furosemide [Lasix] 20 mg tablet 20 mg PO Q OTHER DAY Qty: 90 3RF polyethylene glycol 3350 [Miralax] 17 gram/dose powder 17 g PO DAILY PRN sennosides [senna] 8.6 mg tablet 8.6 mg PO DAILY Qty: 90 1RF triamcinolone acetonide 0.025 % cream 1 applic TOPICAL BID PRN Patient Comments: APPLY A THIN LAYER TOPICALLY TO RASH TWICE DAILY UNTIL CLEAR THEN STOP rosuvastatin 20 mg tablet 20 mg PO DAILY Patient Comments: TAKE 1 TABLET BY MOUTH DAILY cholecalciferol (vitamin D3) 50 mcg (2,000 unit) capsule 2,000 unit PO DAILY lycopene 10 mg capsule 20 mg PO DAILY Rx Instructions: administer after a meal burdock root 1 cap PO BID Rx Instructions: 2 capsules BID orally; marshmallow root 480 mg capsule 2,000 mg PO BID hawthorn alvarez [Janeth Alvarez] See Rx Instructions PO .COMPLEX Rx Instructions: 1500 mg BID per orally; tumeric 1 cap PO DAILY Dupixent Pen 300 mg/2 mL pen injector 300 mg SUBCUT .Q2 weeks vitamin B complex Capsule 1 cap PO DAILY Patient Comments: PT not taking coenzyme Q10 [Co Q-10] 100 mg Capsule 300 mg PO DAILY Probiotic 3 billion cell Capsule 3,000 mmu cells PO DAILY lidocaine [Lidoderm] 5 % adhesive patch,medicated 1 patch Topical Q24H Qty: 15 0RF HPI General Mode of arrival: EMS. Date/Time Provider Initiated Documentation: 08/19/25 06:21. Limitations to Documentation: no limitations. Information obtained by: patient and old records reviewed. HPI Narrative: 85yo M with hx HTN, HLD, CHF, CVA, aortic stenosis s/p TAVR, BPH, prostate cancer, osteopenia, presenting for acute atraumatic left wrist pain and swelling. Yesterday noted some mild pain in his left wrist. No falls or injuries that he can recall. Overnight woke with worsening pain and a lump at the base of his right thumb. Pain with movement at wrist. No numbness or tingling. Difficulty using hand due to pain. Pain is sharp, moderate to severe, and radiates up his forearm. Otherwise in his usual state of health with no fevers, chills, rash, chest pain, shortness of breath, swelling elsewhere, or other concerns. Related Data Home Medications ?Medication ?Instructions ?Recorded ?Confirmed coenzyme Q10 100 mg capsule (Co 300 mg PO DAILY 09/03/19 08/15/25 Q-10) lactobacillus combination no.4 3 3,000 mmu cells PO DAILY 09/03/19 08/15/25 billion cell capsule (Probiotic) vitamin B complex 1 cap PO DAILY 09/03/19 08/15/25 aspirin 81 mg capsule 81 mg PO DAILY 12/05/21 08/15/25 polyethylene glycol 3350 17 17 g PO DAILY PRN 12/21/23 08/19/25 gram/dose oral powder (Miralax) pantoprazole 40 mg tablet,delayed 40 mg PO BID #180 tabs 02/14/25 08/19/25 release cholecalciferol (vitamin D3) 50 2,000 unit PO DAILY 03/03/25 08/15/25 mcg (2,000 unit) capsule rosuvastatin 20 mg tablet 20 mg PO DAILY 03/03/25 08/19/25 triamcinolone acetonide 0.025 % 1 applic topical BID PRN 03/03/25 08/15/25 topical cream burdock root 1 cap PO BID 03/22/25 08/15/25 hawthorn alvarez See Rx Instructions PO .COMPLEX 03/22/25 08/15/25 lycopene 10 mg capsule 20 mg PO DAILY 03/22/25 08/15/25 marshmallow root 480 mg capsule 2,000 mg PO BID 03/22/25 08/15/25 tumeric 1 cap PO DAILY 03/22/25 08/15/25 sennosides 8.6 mg tablet (senna) 8.6 mg PO DAILY #90 tabs 04/21/25 08/19/25 loratadine 10 mg tablet (Claritin) 20 mg PO DAILY 06/16/25 08/15/25 lidocaine 5 % topical patch 1 patch topical Q24H #15 ea 07/22/25 08/15/25 (Lidoderm) furosemide 20 mg tablet (Lasix) 20 mg PO Q OTHER DAY #90 tabs 08/15/25 08/19/25 dupilumab 300 mg/2 mL subcutaneous 300 mg subcut .Q2 weeks 08/19/25 08/19/25 pen injector (Dupixent) Previous Rx's ?Medication ?Instructions ?Recorded pantoprazole 40 mg tablet,delayed 40 mg PO BID #180 tabs 02/14/25 release sennosides 8.6 mg tablet (senna) 8.6 mg PO DAILY #90 tabs 04/21/25 lidocaine 5 % topical patch 1 patch topical Q24H #15 ea 07/22/25 (Lidoderm) furosemide 20 mg tablet (Lasix) 20 mg PO Q OTHER DAY #90 tabs 08/15/25 Allergies Allergy/AdvReac Type Severity Reaction Status Date / Time metronidazole Allergy Intermediate Skin Rash, Verified 08/13/25 08:34 swelling, itchy sulfamethoxazole (From Allergy turns red Verified 08/13/25 08:34 Bactrim) trimethoprim (From Bactrim) Allergy turns red Verified 08/13/25 08:34 ropinirole AdvReac Severe insomina, Verified 08/13/25 08:34 weakness, intense fatigue zolpidem (From Ambien) AdvReac sleep Verified 08/13/25 08:34 walk General Stated Complaint: GenMedical ANIBAL: 3 Review of Systems Narrative: see HPI Exam Narrative Exam Narrative: General: Alert, well appearing, well nourished, in no acute distress. Head: Normocephalic, atraumatic Neck: Trachea midline, ?Neck supple. ENT: ?MMM. Chest: Nontender? Cardiac: ?RRR, no murmurs appreciated Resp: No respiratory distress. CTAB. Abd: ?Soft, non-distended, nontender Pelvis: Stable. Extremities: ?Left wrist with echymosis and swelling over radial aspect of dorsum of the wrist. No warmth or erythema. Sensation to light tough intact throughout all digits and symmetric with right. Brisk capillary refill all digits. Effort limited 2/t to pain but good strength with wrist flexion and extension as well as certified master safe technician strength. Radial pulses intact and symmetric bilaterally. Neurologic: GCS 15. ? Moves all extremities freely against gravity Course Vital Signs Vital signs: Vital Signs Temperature 36.3 C L 08/19/25 05:56 Pulse 85 08/19/25 05:56 Respiratory Rate 16 08/19/25 05:56 Blood Pressure 140/38 L 08/19/25 05:56 Pulse Oximetry 95 08/19/25 05:56 Temperature 36.3 C L 08/19/25 06:04 Temperature Source Oral 08/19/25 06:04 Pulse 85 08/19/25 06:04 Respiratory Rate 16 08/19/25 06:04 Respiratory Effort Normal 08/19/25 06:04 Respiratory Pattern Normal 08/19/25 06:04 Blood Pressure 140/38 L 08/19/25 06:04 Blood Pressure Position Sitting 08/19/25 06:04 Pulse Oximetry 95 08/19/25 06:04 Oxygen Delivery Method Room Air 08/19/25 06:04 Oxygen Flow Rate 0 08/19/25 06:04 Pain Level 9 08/19/25 06:04 Medical Decision Making 85yo M with hx HTN, HLD, CHF, CVA, aortic stenosis s/p TAVR, BPH, prostate cancer, osteopenia, presenting for acute atraumatic left wrist pain and swelling. Yesterday noted some mild pain in his left wrist with no recent falls or injuries; overnight work with worsening pain and swelling at the base of his right thumb. No numbness/tingling or systemic symptoms. Vital signs reassuring on arrival. Well appearing on exam. Wrist with echymosis and swelling to radial aspect of dorsal surface; neurovascular intact, no warmth or erythema. Some bony tenderness over radial aspect of wrist. Exam not suggestive of septic joint or gout. Area does not transluminate, not clearly ganglion cyst. Question sprain or fracture (given osteopenia) as exam is most consistent with this despite lack of trauma. Will risk stratify with labs and get plain films. Toradol for pain. Labs reviewed as below, CBC with mild luekocytosis at 11 (nonspecific) as well as mild thrombocytopenia with platelets 113 (118-180 over the past three months on [facility] record review), ESR normal. CMP, Mg, CRP pending. Plain films ordered. Will be signed out to oncoming physician, plan to followup results. Disposition pending results and clinical course. Lab Data Lab results reviewed: Yes I reviewed the patient's lab results. Labs: Laboratory Tests Range/Units 12/13/25 06:39 WBC (4.4-10.8) 10^3/uL 11.30 H RBC (4.36-5.78) 10^6/uL 4.60 Hgb (13.5-17.5) g/dL 14.3 Hct (40.0-50.0) % 41.1 MCV (80-95) fL 89 MCH (27.0-33.0) pg 31.1 MCHC (32.0-36.0) % 34.8 RDW (11.8-14.1) % 13.2 Plt Count (130-400) 10^3/uL 113 L MPV (8.0-11.0) fL 10.6 Immature Gran % % 0.7 Neutrophils % % 71.1 Lymphocytes % % 12.4 Monocytes % % 9.9 Eosinophils % % 5.4 Basophils % % 0.5 Nucleated RBC % (0.0-0.3) % 0.0 Absolute Neutrophils (1.2-6.7) 10^3/uL 8.03 H Absolute Lymphocytes (1.2-3.4) 10^3/uL 1.40 Absolute Monocytes (0.1-0.8) 10^3/uL 1.12 H Absolute Eosinophils (0.0-0.7) 10^3/uL 0.61 Absolute Basophils (0.0-0.2) 10^3/uL 0.06 ESR (0-20) mm/hr 5 PFSH All Active Problems (Updated 08/19/25 @ 07:10 by Romana Solomon MD) Acute wrist pain (Acute) Adjustment disorder (Chronic) Weakness (Acute) Acute dehydration (Acute) Acute constipation (Acute) Neck sprain (Acute) Fall (Acute) TIA (transient ischemic attack) (Acute) History of excessive cerumen (Acute) Atopic dermatitis, unspecified (Acute) 07/10/25 [place] [facility] [place] Kalina Advanced care planning/counseling discussion (Acute) Palliative care patient (Acute) Mass of left submandibular gland (Acute) Tinea pedis (Acute) Diastolic congestive heart failure (Acute) Hyperlipidemia (Chronic) CHF (congestive heart failure) (Chronic) CHF (congestive heart failure) (Acute) S/P TAVR (transcatheter aortic valve replacement) (Chronic) CVA (cerebral vascular accident) (Chronic) Sepsis (Acute) Acute dehydration (Acute) Diarrhea (Acute) Leukocytosis (Acute) Insomnia (Acute) Globus sensation (Acute) Memory loss (Acute) Ulcer of right foot with fat layer exposed (Acute) Pain in left foot (Acute) Mechanical low back pain (Acute) Right sided abdominal pain (Acute) Pain disorder associated with psychological and physical factors (Acute) Lumbar spondylosis (Acute) Post-laminectomy syndrome (Acute) Poor appetite (Acute) COVID-19 (Acute) Chronic headache (Acute) Orthostatic hypertension (Acute) Chronic rhinitis (Acute) Rib fracture (Acute) Constipation by delayed colonic transit (Acute) BLANCO (dyspnea on exertion) (Acute) Other idiopathic scoliosis, thoracolumbar region (Acute) Acquired hammertoes of both feet (Acute) Nasal congestion (Acute) Pharyngitis (Acute) BPH w urinary obs/LUTS (Acute) Thyroiditis (Acute) Excessive cerumen in both ear canals (Acute) Chronic hyponatremia (Acute) Bronchomalacia (Acute) Stage III chronic kidney disease (Chronic) Dx necessary for at-risk foot care with Podiatry Diverticulitis (Chronic) GERD (gastroesophageal reflux disease) (Chronic) HTN (hypertension) (Chronic) Hypercholesterolemia (Acute) Dizziness and giddiness (Acute) Malaise and fatigue (Acute) Cerebrovascular disease (Acute) Aortic valve disorder (Acute) Prostate cancer (Chronic) Diverticular disease of colon (Acute) Iron deficiency anemia (Acute) Depressive disorder (Acute) Headache (Acute) Chronic pansinusitis (Acute) Chronic cough (Acute) White coat syndrome with hypertension (Chronic) Tests in the 120s at home Cough (Acute) per Nikki 02/10/2020 started Breo inhaler 03/02/20 F/U with Dr Jordan, next ov 04/06/20 Hip osteoarthritis (Acute) Obstructive sleep apnea (Chronic ~2017) Moderate-PAP therapy H/O endoscopy (Chronic) 11/2020 Sinusitis, chronic 11/04/21 [place] low grade esophageal ulcer, 2 cm Hiatal Hernia Acute dyspnea (Acute) Insomnia (Chronic) Sleep Clinic. Lorazepam tx Periodic limb movement disorder (Acute) 04/01/21-sleep clinic, Yesica Hopkins MD Psychophysiologic insomnia (Acute) 04/01/21-sleep clinic, Yesica Hopkins MD Other fatigue (Acute) 04/01/21-sleep clinicYesica MD Jaw pain (Acute) H/O aortic valve replacement (Acute) Chronic sinusitis (Acute) Degenerative disc disease (Acute) History of diverticulitis (Acute) Dizziness (Acute) Tubular adenoma (Acute 11/04/21) Balance disorder (Acute) New daily persistent headache (Acute) Lightheadedness (Acute) Constipation (Acute) Impacted cerumen, bilateral (Acute) Lichen planus (Acute 04/23/22) Onychomycosis (Acute 04/23/22) History of hemoptysis (Acute) Stenosis of carotid artery (Acute) 05/22/22 [facility] [place] Arteriosclerosis of left carotid artery (Acute) 05/22/22 Vascular Eczema (Chronic) start narrow band UVB bid at [facility] History of vascular surgery (Chronic) Stenting of L internal carotid artery, 06/28, [facility] [place], started plavix Nail dystrophy (Acute) Corns and callosities (Acute) Left hip pain (Acute) Impacted cerumen, bilateral (Acute) Conductive hearing loss, external ear (Acute) Long-term current use of proton pump inhibitor therapy (Acute) Sacral back pain (Acute) referred to Spine Clinic per note 01/02/23 [facility] [place] Osteopenia (Acute) Syncope (Chronic) Syncope (Chronic) Spondylolisthesis at L4-L5 level (Acute) Medical History History of pyloric stenosis as a child Surgical History H/O lumbosacral spine surgery H/O laminectomy (07/17/23) [facility] Bilateral laminectomy, medial facetectomy, foraminotomy L4-5; Posterior instrumentation L4-5; Posterolateral arthrodesis L4-5; Application of local autograft; Application of allograft morselized History of carotid endarterectomy 2020 H/O colonoscopy (~11/04/21) 11/04/21 Dr Tyler History of colon resection H/O aortic valve replacement History of tonsillectomy H/O shoulder surgery H/O hemorrhoidectomy History of hernia repair Family History Father Tuberculosis Mother Breast cancer Heart disease Sister Cancer Heart disease Hypertension Social History Smoking/Tobacco Use Status: Former Tobacco Use Quit Date: 09/07/1964 Pack-years: 42 Tobacco: How many years used: 14 Smoking risk assessment performed?: Yes Alcohol Intake: current Alcohol Intake frequency: holidays/special occasions only Alcohol type: wine and hard liquor Drug use: Never Substance use type: does not use Adopted: No Caregiver/Support person: No Foster care: No Household members: spouse Housing: house Number of Children: 1 Education Level: college Do you need help understanding health information?: Never 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 Pets and animals: No Sexually active: Yes Do you think of yourself as: straight/heterosexual Current gender identity: male What is your relationship status?: How often do you talk on the phone with friends or family?: three or more times per week How often do you get together with friends or relatives?: never How often do you attend nondenominational or protestant services?: decline to answer Do you belong to any clubs or organized social groups?: no Panel score (0-1 are the most socially isolated patients): 2 What type of physical activity do you participate in: other Details: 2nd Degree Shalini Rodarte Duration: 60-90 minutes/day Frequency: 1-2 times per week Seatbelt use: always Drive intox or ride w/intox local truck driver: No Working smoke detector in home: Yes Carbon monox detector in home: Yes Do you feel safe at home: Yes Do you feel safe in your relationship?: Yes
[2025-08-19] MEDS: Ketorolac 15 MG/ML VIAL IVP (06:42)
[2025-08-19 06:52] LABS: Abs Immature Grans 0.08 10^3/uL (0.0-0.06); ESR 5 mm/hr (0-20); HCT 41.1 % (40.0-50.0); HGB 14.3 g/dL (13.5-17.5); Immature Grans % 0.7 %; MCH 31.1 pg (27.0-33.0); MCHC 34.8 % (32.0-36.0); MCV 89 fL (80-95); MPV 10.6 fL (8.0-11.0); Platelet Count 113 10^3/uL (130-400); RBC 4.60 10^6/uL (4.36-5.78); RDW 13.2 % (11.8-14.1); RDW-SD 42.9 fL; WBC 11.30 10^3/uL (4.4-10.8)
[2025-08-19 07:19] LABS: C-Reactive Protein 4.04 mg/dL (<=0.50); Magnesium 1.8 mg/dL (1.6-2.6)
[2025-08-19 07:21] LABS: ALT 19 U/L (10-49); AST 23 U/L (<34); Albumin 3.6 g/dL (3.2-5.0); Alkaline Phosphatase 53 U/L (46-116); Anion Gap 8.8 mmol/L (3-11); BUN 18 mg/dL (9-23); Bilirubin, Total 0.7 mg/dL (0.2-1.2); CO2 21.2 mmol/L (20.0-31.0); Calcium 9.1 mg/dL (8.3-10.6); Chloride 101 mmol/L (98-107); Glucose 108 mg/dL (74-106); Potassium 3.9 mmol/L (3.5-5.1); Sodium 131 mmol/L (136-145); Total Protein 5.7 g/dL (5.7-8.2)
--- NOTE | 2025-08-19 07:23 | DI.RAD_ITS ---
Exam(s) XR HAND LT COMPLETE XR WRIST LT COMPLETE EXAM: XR WRIST LT COMPLETE CLINICAL HISTORY: atraumatic pain swelling radial aspect dorsal wris. TECHNIQUE: 2D digital imaging was performed. Three views of the hand and wrist. COMPARISON: CR XR WRIST RT COMPLETE from 02/18/2024 CR,XR XR HAND LT COMPLETE from 08/19/2025 FINDINGS: BONES: No acute fracture is present. No bony destructive lesion is seen. JOINTS: There is severe degenerative changes at the 1st carpal metacarpal joint and scaphoid trapezium trapezoid joint. Advanced degenerative changes are also seen in the interphalangeal joints of the fingers. Moderate degenerative changes are noted at the 2nd metacarpophalangeal joint. SOFT TISSUE: Swelling around the wrist. Vascular calcifications. IMPRESSION: Advanced degenerative changes. No evidence of fracture. The preliminary [facility] report was reviewed. DATA REPOSITORY: RADIATION DOSE DELIVERED:
--- NOTE | 2025-08-19 08:14 | W.EDPROG ---
Date of service: 08/19/25 Time of Service: 08:14 Medical Decision Making Patient's labs show mild elevation in CRP and white count, otherwise no significant changes from baseline. X-rays on my read show no acute findings, no fractures. Patient is requesting discharge and does not want to wait for the virtual radiology reads. He has very very faint erythema of the posterior wrist without swelling. He has full range of motion of the wrist. I doubt septic joint but given his mild white count I am going to treat for potential early cellulitis with Augmentin. Will provide him with a wrist splint and advised to follow-up with his PCP if not improving this week and return precautions given. Discharge Plan Disposition Patient Disposition: Home Condition: Stable Discharge Details Clinical Impression: Acute wrist pain Primary Care Provider: Umesh Covarrubias ED Provider: Romana Solomon Home Meds and New Rx's Prescriptions: New amoxicillin-pot clavulanate 875-125 mg tablet 1 tab PO BID Qty: 14 0RF Continued aspirin 81 mg capsule 81 mg PO DAILY pantoprazole 40 mg tablet,delayed release (DR/EC) 40 mg PO BID Qty: 180 3RF loratadine [Claritin] 10 mg tablet 20 mg PO DAILY furosemide [Lasix] 20 mg tablet 20 mg PO Q OTHER DAY Qty: 90 3RF polyethylene glycol 3350 [Miralax] 17 gram/dose powder 17 g PO DAILY PRN sennosides [senna] 8.6 mg tablet 8.6 mg PO DAILY Qty: 90 1RF triamcinolone acetonide 0.025 % cream 1 applic TOPICAL BID PRN Patient Comments: APPLY A THIN LAYER TOPICALLY TO RASH TWICE DAILY UNTIL CLEAR THEN STOP rosuvastatin 20 mg tablet 20 mg PO DAILY Patient Comments: TAKE 1 TABLET BY MOUTH DAILY cholecalciferol (vitamin D3) 50 mcg (2,000 unit) capsule 2,000 unit PO DAILY lycopene 10 mg capsule 20 mg PO DAILY Rx Instructions: administer after a meal burdock root 1 cap PO BID Rx Instructions: 2 capsules BID orally; marshmallow root 480 mg capsule 2,000 mg PO BID hawthorn reid [[place] Reid] See Rx Instructions PO .COMPLEX Rx Instructions: 1500 mg BID per orally; tumeric 1 cap PO DAILY Dupixent Pen 300 mg/2 mL pen injector 300 mg SUBCUT .Q2 weeks vitamin B complex Capsule 1 cap PO DAILY Patient Comments: PT not taking coenzyme Q10 [Co Q-10] 100 mg Capsule 300 mg PO DAILY Probiotic 3 billion cell Capsule 3,000 mmu cells PO DAILY lidocaine [Lidoderm] 5 % adhesive patch,medicated 1 patch Topical Q24H Qty: 15 0RF Discharge Instructions Additional Instructions: Wear the splint as needed for comfort. You can take 1000 mg of acetaminophen every 6 hours as needed. Do not exceed 3000 mg in a 24-hour period. You can also use topical diclofenac. Follow-up with your primary care provider this week if not improving. If you feel more ill or have new symptoms such as high fevers return to the emergency department for reevaluation. Stand Alone Forms: Portal Information
[2025-08-19] MEDS: Amoxicillin 875/Clav. 125 TAB PO (08:19)
[2025-08-19] MEDS: Acetaminophen 500 MG TAB 1000 MG PO (08:19)
--- NOTE | 2025-08-19 08:33 | DI.[facility]_ITS ---
PROCEDURE INFORMATION: Exam: XR Left Hand Exam date and time: 08/19/2025 7:13 AM Age: 85 years old Clinical indication: Hand; Left; No trauma - pain TECHNIQUE: Imaging protocol: Radiologic exam of the left hand. Views: 3 or more views. COMPARISON: No relevant prior studies available. FINDINGS: Bones/joints: No acute fracture or dislocation. Severe arthrosis of the 1st CMC joint with [id number] apposition, subchondral sclerosis and cystic change, and osteophytosis. Moderate arthrosis of the IP joints and triscaphe joint. Mild 2nd MCP arthrosis. Soft tissues: Normal. IMPRESSION: 1. No acute fracture or dislocation. 2. Multifocal arthrosis described above. Dictated and Authenticated by: Nicolette Parish MD. Orderin Neha Avendano MD
--- NOTE | 2025-08-19 08:34 | DI.[facility]_ITS ---
PROCEDURE INFORMATION: Exam: XR Left Wrist Exam date and time: 08/19/2025 7:14 AM Age: 85 years old Clinical indication: Left; Atraumatic pain swelling radial aspect dorsal wrist TECHNIQUE: Imaging protocol: Radiologic exam of the left wrist. Views: 3 or more views. COMPARISON: CR XR HAND LT COMPLETE 08/19/2025 7:13 AM FINDINGS: Bones/joints: Moderate to severe arthrosis of the 1st CMC joint and moderate triscaphe arthrosis. No acute fracture or dislocation. Soft tissues: Vascular calcifications. IMPRESSION: 1. Moderate to severe arthrosis of the 1st CMC joint. 2. No acute fracture or dislocation. Dictated and Authenticated by: Nicolette Parish MD. Orderin Neha Avendano MD
[2025-08-19 08:36] VITALS: BP 135/48; PULSE 73; RESP 12; O2SAT 97
[2025-08-19] MEDS: Amox. 875/Clav. 125, 2 TABS/BTL 1 TAB PO (08:45)
== END 2025-08-19 10:37 | disposition home or self-care (01) ==
PROVIDERS: Student in an Organized Health Care Education/Training Program; Emergency Provider Emergency Medicine; PCP Family Medicine
DX: R53.1 Weakness (principal); M25.532 Pain in left wrist; I13.0 Hypertensive heart and chronic kidney disease with heart failure and stage 1 through stage 4 chronic kidney disease, or unspecified chronic kidney disease; N18.30 Chronic kidney disease, stage 3 unspecified; I50.9 Heart failure, unspecified; Z86.73 Personal history of transient ischemic attack (TIA), and cerebral infarction without residual deficits; Z79.82 Long term (current) use of aspirin; Z95.2 Presence of prosthetic heart valve; Z87.891 Personal history of nicotine dependence
CPT/HCPCS: 00123; 36415; 80053; 85652; 96374; 99284; 73110; 73130; 83735; 85025; 86140; J1885

== ENCOUNTER 2025-08-21 11:02 | Emergency (ER) | payer MEDICARE, OTHER, SELFPAY ==
[2025-08-21] VITALS (18 sets, daily range): BP systolic 117–143; BP diastolic 34–60; PULSE 75–90; RESP 14–23; TEMP 36.9; O2SAT 95–98
--- NOTE | 2025-08-21 11:03 | DI.RAD_ITS ---
Exam(s) XR CHEST 1V IN DI DEPT EXAM: XR CHEST 1V IN DI DEPT CLINICAL HISTORY: Sepsis TECHNIQUE: 2D digital imaging was performed. COMPARISON: CR,XR XR CHEST 2V PA LATERAL from 01/28/2025 CR,XR XR CHEST 1V IN DI DEPT from 03/22/2025 FINDINGS: LUNGS: Clear. No pleural abnormality seen. HEART: Normal size. AORTA: Normal diameter. BONES: Unremarkable for age. Left shoulder prosthesis. Soft tissues: Unremarkable. IMPRESSION: No acute findings. DATA REPOSITORY: RADIATION DOSE DELIVERED:
--- NOTE | 2025-08-21 11:05 | W.ED.GENAD ---
Discharge Plan Disposition Patient Disposition: Home Discharge Details Clinical Impression: Generalized weakness Primary Care Provider: Umesh Covarrubias ED Provider: Gustabo Nickerson Home Meds and New Rx's Prescriptions: New trazodone 50 mg tablet 50 mg PO QHS PRNQty: 3 0RF Continued aspirin 81 mg capsule 81 mg PO DAILY pantoprazole 40 mg tablet,delayed release (DR/EC) 40 mg PO BID Qty: 180 3RF loratadine [Claritin] 10 mg tablet 20 mg PO DAILY furosemide [Lasix] 20 mg tablet 20 mg PO Q OTHER DAY Qty: 90 3RF polyethylene glycol 3350 [Miralax] 17 gram/dose powder 17 g PO DAILY PRN sennosides [senna] 8.6 mg tablet 8.6 mg PO DAILY Qty: 90 1RF triamcinolone acetonide 0.025 % cream 1 applic TOPICAL BID PRN Patient Comments: APPLY A THIN LAYER TOPICALLY TO RASH TWICE DAILY UNTIL CLEAR THEN STOP rosuvastatin 20 mg tablet 20 mg PO DAILY Patient Comments: TAKE 1 TABLET BY MOUTH DAILY cholecalciferol (vitamin D3) 50 mcg (2,000 unit) capsule 2,000 unit PO DAILY lycopene 10 mg capsule 20 mg PO DAILY Rx Instructions: administer after a meal burdock root 1 cap PO BID Rx Instructions: 2 capsules BID orally; marshmallow root 480 mg capsule 2,000 mg PO BID hawthorn alvarez [Janeth Alvarez] See Rx Instructions PO .COMPLEX Rx Instructions: 1500 mg BID per orally; tumeric 1 cap PO DAILY Dupixent Pen 300 mg/2 mL pen injector 300 mg SUBCUT .Q2 weeks amoxicillin-pot clavulanate 875-125 mg tablet 1 tab PO BID Qty: 14 0RF vitamin B complex Capsule 1 cap PO DAILY Patient Comments: PT not taking coenzyme Q10 [Co Q-10] 100 mg Capsule 300 mg PO DAILY Probiotic 3 billion cell Capsule 3,000 mmu cells PO DAILY lidocaine [Lidoderm] 5 % adhesive patch,medicated 1 patch Topical Q24H Qty: 15 0RF Discharge Instructions Additional Instructions: You are seen in the emergency department for your weakness. Your CAT scan showed no sign of any dangerous processes in your stomach. A prescription has been sent to your pharmacy for medication you can take as needed for sleep. If this medication works well please follow-up with your primary care provider. If you have difficulty breathing chest pain or begin vomiting do not stop please return to the emergency department. Stand Alone Forms: Portal Information HPI General Date/Time Provider Initiated Documentation: 08/21/25 11:36. HPI Narrative: MDM Broad differential in this elderly normotensive and normothermic 85-year-old male with generalized weakness nausea and myalgias. No fevers nor nuchal rigidity so we will defer lumbar puncture. Patient is not altered to suggest encephalitis. No pain out of proportion to suggest necrotizing soft tissue infection. Clear lungs make my suspicion lower for pneumonia however will obtain chest x-ray. Patient does have distended abdomen with shoulder. Concerning for possibility of intra-abdominal infection for which patient will undergo CT abdomen pelvis. No flank pain to suggest ureterolithiasis. Intact range of motion in shoulders make my suspicion lower for dislocation. No chest pain to suggest ACS however will obtain ECG and troponin in setting of nausea. Patient denies chance that he could have been bitten by a tick so we will defer tickborne testing. No dysuria or frequency to suggest UTI. Based on prehospital report fever curve patient appeared to for sepsis with broad-spectrum antibiotics assessed a lactate and drip blood cultures. 11:42 AM Reassuring normal lactate. Venous blood gas lacks acidemia and hypercarbia. 2 PM Reassuring repeat troponin with no significant delta. CK not consistent with rhabdomyolysis. CBC shows worsened leukocytosis. New mild normocytic anemia. Slightly improved thrombocytopenia. COVID influenza RSV all negative. Comprehensive metabolic panel showing CKD. No STACY. No significant LFT abnormalities. Mild hyponatermia. Patient had a reassuring CT scan with no acute abnormalities. 3:30 PM Patient was able ambulate tolerate p.o. in the ED. Urinalysis was not consistent with UTI. He requested lorazepam for sleep. I advised him that I was not comfortable prescribing this medication and that it was not indicated. He is not on any QTc prolonging medications so we will trial him with 3 doses of trazodone. We discussed that he should return if he developed any shortness of breath chest pain nausea vomiting or any fevers. My suspicion is high that the patient has a viral syndrome. We did not see clear evidence on our limited swab. Diagnostic interpretations performed by me: Per my independent interpretation chest x-ray shows: No acute cardiopulmonary process. Per my independent interpretation EKG shows: Narrow complex normal sinus rhythm at a rate of 81. Normal axis. Intervals within normal limits. No acute injury pattern. Compared to prior dated earlier this month no acute changes. HPI This is an 84-year-old male presenting with generalized myalgia. The patient reports severe shoulder pain that began on 08/20/2025, which has been disrupting his sleep. He describes the overall muscle pain as severe, to the point where he cannot walk or sleep. He has been experiencing generalized myalgia and a temperature of 100.1?F this morning. He also reports a persistent sensation of dizziness. He reports no recent falls or injuries. He reports no difficulty breathing, chest pain, abdominal pain, burning during urination, or skin sores. He reports no recent exposure to sick individuals. He reports no nausea or vomiting but mentions a general feeling of stomach discomfort. He reports no recent tick bites or frequent exposure to wooded areas. Exam General: Well-appearing in no acute distress speaking in complete sentences. Head: Normocephalic, atraumatic. Eye: Extraocular eye movements intact. No conjunctival injection. No scleral icterus. Ear, nose, mouth, throat: Grossly normal inspection. Normal voice, handling secretions normally. Neck: Trachea midline. No nuchal rigidity. Cardiovascular: Well-perfused distal extremities. Regular rate and rhythm Respiratory: Nonlabored respiration. Clear lungs bilaterally. Gastrointestinal: Nondistended abdomen. Soft but generally tender abdomen. No rebound. No guarding. Musculoskeletal: No edema. Moving all 4 extremities spontaneously. Skin: Normal for age and race, grossly normal temperature and turgor. No acute rash. Neurologic: Alert and appropriate, no apparent acute deficits. Alert and oriented to person place and time. Related Data Home Medications ?Medication ?Instructions ?Recorded ?Confirmed coenzyme Q10 100 mg capsule (Co 300 mg PO DAILY 09/03/19 08/15/25 Q-10) lactobacillus combination no.4 3 3,000 mmu cells PO DAILY 09/03/19 08/15/25 billion cell capsule (Probiotic) vitamin B complex 1 cap PO DAILY 09/03/19 08/15/25 aspirin 81 mg capsule 81 mg PO DAILY 12/05/21 08/15/25 polyethylene glycol 3350 17 17 g PO DAILY PRN 12/21/23 08/19/25 gram/dose oral powder (Miralax) pantoprazole 40 mg tablet,delayed 40 mg PO BID #180 tabs 02/14/25 08/19/25 release cholecalciferol (vitamin D3) 50 2,000 unit PO DAILY 03/03/25 08/15/25 mcg (2,000 unit) capsule rosuvastatin 20 mg tablet 20 mg PO DAILY 03/03/25 08/19/25 triamcinolone acetonide 0.025 % 1 applic topical BID PRN 03/03/25 08/15/25 topical cream burdock root 1 cap PO BID 03/22/25 08/15/25 hawthorn alvarez See Rx Instructions PO .COMPLEX 03/22/25 08/15/25 lycopene 10 mg capsule 20 mg PO DAILY 03/22/25 08/15/25 marshmallow root 480 mg capsule 2,000 mg PO BID 03/22/25 08/15/25 tumeric 1 cap PO DAILY 03/22/25 08/15/25 sennosides 8.6 mg tablet (senna) 8.6 mg PO DAILY #90 tabs 04/21/25 08/19/25 loratadine 10 mg tablet (Claritin) 20 mg PO DAILY 06/16/25 08/15/25 lidocaine 5 % topical patch 1 patch topical Q24H #15 ea 07/22/25 08/15/25 (Lidoderm) furosemide 20 mg tablet (Lasix) 20 mg PO Q OTHER DAY #90 tabs 08/15/25 08/19/25 amoxicillin 875 mg-potassium 1 tab PO BID #14 tabs 08/19/25 clavulanate 125 mg tablet dupilumab 300 mg/2 mL subcutaneous 300 mg subcut .Q2 weeks 08/19/25 08/19/25 pen injector (Dupixent) trazodone 50 mg tablet 50 mg PO QHS PRN #3 tabs 08/21/25 Previous Rx's ?Medication ?Instructions ?Recorded pantoprazole 40 mg tablet,delayed 40 mg PO BID #180 tabs 02/14/25 release sennosides 8.6 mg tablet (senna) 8.6 mg PO DAILY #90 tabs 04/21/25 lidocaine 5 % topical patch 1 patch topical Q24H #15 ea 07/22/25 (Lidoderm) furosemide 20 mg tablet (Lasix) 20 mg PO Q OTHER DAY #90 tabs 08/15/25 amoxicillin 875 mg-potassium 1 tab PO BID #14 tabs 08/19/25 clavulanate 125 mg tablet trazodone 50 mg tablet 50 mg PO QHS PRN #3 tabs 08/21/25 Allergies Allergy/AdvReac Type Severity Reaction Status Date / Time metronidazole Allergy Intermediate Skin Rash, Verified 08/13/25 08:34 swelling, itchy sulfamethoxazole (From Allergy turns red Verified 08/13/25 08:34 Bactrim) trimethoprim (From Bactrim) Allergy turns red Verified 08/13/25 08:34 ropinirole AdvReac Severe insomina, Verified 08/13/25 08:34 weakness, intense fatigue zolpidem (From Ambien) AdvReac sleep Verified 08/13/25 08:34 walk General ANIBAL: 3 PFSH All Active Problems (Updated 08/21/25 @ 15:36 by Gustabo Nickerson MD) Generalized weakness (Acute) Acute wrist pain (Acute) Adjustment disorder (Chronic) Weakness (Acute) Acute dehydration (Acute) Acute constipation (Acute) Neck sprain (Acute) Fall (Acute) TIA (transient ischemic attack) (Acute) History of excessive cerumen (Acute) Atopic dermatitis, unspecified (Acute) 07/10/25 DX from [facility] - Rx'd Dupixent Advanced care planning/counseling discussion (Acute) Palliative care patient (Acute) Mass of left submandibular gland (Acute) Tinea pedis (Acute) Diastolic congestive heart failure (Acute) Hyperlipidemia (Chronic) CHF (congestive heart failure) (Chronic) CHF (congestive heart failure) (Acute) S/P TAVR (transcatheter aortic valve replacement) (Chronic) CVA (cerebral vascular accident) (Chronic) Sepsis (Acute) Acute dehydration (Acute) Diarrhea (Acute) Leukocytosis (Acute) Insomnia (Acute) Globus sensation (Acute) Memory loss (Acute) Ulcer of right foot with fat layer exposed (Acute) Pain in left foot (Acute) Mechanical low back pain (Acute) Right sided abdominal pain (Acute) Pain disorder associated with psychological and physical factors (Acute) Lumbar spondylosis (Acute) Post-laminectomy syndrome (Acute) Poor appetite (Acute) COVID-19 (Acute) Chronic headache (Acute) Orthostatic hypertension (Acute) Chronic rhinitis (Acute) Rib fracture (Acute) Constipation by delayed colonic transit (Acute) BLANCO (dyspnea on exertion) (Acute) Other idiopathic scoliosis, thoracolumbar region (Acute) Acquired hammertoes of both feet (Acute) Nasal congestion (Acute) Pharyngitis (Acute) BPH w urinary obs/LUTS (Acute) Thyroiditis (Acute) Excessive cerumen in both ear canals (Acute) Chronic hyponatremia (Acute) Bronchomalacia (Acute) Stage III chronic kidney disease (Chronic) Dx necessary for at-risk foot care with Podiatry Diverticulitis (Chronic) GERD (gastroesophageal reflux disease) (Chronic) HTN (hypertension) (Chronic) Hypercholesterolemia (Acute) Dizziness and giddiness (Acute) Malaise and fatigue (Acute) Cerebrovascular disease (Acute) Aortic valve disorder (Acute) Prostate cancer (Chronic) Diverticular disease of colon (Acute) Iron deficiency anemia (Acute) Depressive disorder (Acute) Headache (Acute) Chronic pansinusitis (Acute) Chronic cough (Acute) White coat syndrome with hypertension (Chronic) Tests in the 120s at home Cough (Acute) per Nikki 02/10/2020 started Breo inhaler 03/02/20 F/U with Dr Jordan, next ov 04/06/20 Hip osteoarthritis (Acute) Obstructive sleep apnea (Chronic ~2017) Moderate-PAP therapy H/O endoscopy (Chronic) 11/2020 Sinusitis, chronic 11/04/21 [place] low grade esophageal ulcer, 2 cm Hiatal Hernia Acute dyspnea (Acute) Insomnia (Chronic) Sleep Clinic. 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) Onychomycosis (Acute 04/23/22) History of hemoptysis (Acute) Stenosis of carotid artery (Acute) 05/22/22 [facility] Vascular Arteriosclerosis of left carotid artery (Acute) 05/22/22 Vascular Eczema (Chronic) start narrow band UVB bid at [facility] History of vascular surgery (Chronic) Stenting of L internal carotid artery, 06/28, [facility], started plavix Nail dystrophy (Acute) Corns and callosities (Acute) Left hip pain (Acute) Impacted cerumen, bilateral (Acute) Conductive hearing loss, external ear (Acute) Long-term current use of proton pump inhibitor therapy (Acute) Sacral back pain (Acute) referred to Spine Clinic per note 01/02/23 [facility] Osteopenia (Acute) Syncope (Chronic) Syncope (Chronic) Spondylolisthesis at L4-L5 level (Acute) Medical History History of pyloric stenosis as a child Surgical History H/O lumbosacral spine surgery H/O laminectomy (07/17/23) [facility] Bilateral laminectomy, medial facetectomy, foraminotomy L4-5; Posterior instrumentation L4-5; Posterolateral arthrodesis L4-5; Application of local autograft; Application of allograft morselized History of carotid endarterectomy 2020 H/O colonoscopy (~11/04/21) 11/04/21 Dr Tyler History of colon resection H/O aortic valve replacement History of tonsillectomy H/O shoulder surgery H/O hemorrhoidectomy History of hernia repair Family History Father Tuberculosis Mother Breast cancer Heart disease Sister Cancer Heart disease Hypertension Social History Smoking/Tobacco Use Status: Former Tobacco Use Quit Date: 09/07/1964 Pack-years: 42 Tobacco: How many years used: 14 Smoking risk assessment performed?: Yes Alcohol Intake: current Alcohol Intake frequency: holidays/special occasions only Alcohol type: wine and hard liquor Drug use: Never Substance use type: does not use Adopted: No Caregiver/Support person: No Foster care: No Household members: spouse Housing: house Number of Children: 1 Education Level: college Do you need help understanding health information?: Never 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 Pets and animals: No Sexually active: Yes Do you think of yourself as: straight/heterosexual Current gender identity: male What is your relationship status?: How often do you talk on the phone with friends or family?: three or more times per week How often do you get together with friends or relatives?: never How often do you attend presybeterian or alevism services?: decline to answer Do you belong to any clubs or organized social groups?: no Panel score (0-1 are the most socially isolated patients): 2 What type of physical activity do you participate in: other Details: [employer] RubberShalini Bhardwaj Duration: 60-90 minutes/day Frequency: 1-2 times per week Seatbelt use: always Drive intox or ride w/intox jinriksha driver: No Working smoke detector in home: Yes Carbon monox detector in home: Yes Do you feel safe at home: Yes Do you feel safe in your relationship?: Yes
--- NOTE | 2025-08-21 11:30 | RT.EKG_ITS ---
APPROVED REPORT Exam: Resting ECG Reason for Exam: Nausea Patient Location: E HR:81 bpm ECG Measurements Heart Rate 81 AXIS MT 192 P 59 QRSd 81 QRS 19 QT 364 T 38 QTc 423 Conclusion Sinus rhythm...normal P axis, V-rate 60- 99 Probable left atrial enlargement...P >50mS, <-0.10mV V1 No Occlusion OR
[2025-08-21 11:36] LABS: BE (Venous) -4 mmol/L (-2-3); HCO3 (Venous) 22 mmol/L (23-28); O2 Sat (Venous) 74 %; TCO2 (Venous) 20 mmol/L (24-29); pCO2 (Venous) 40 mmHg (41-51); pO2 (Venous) 38 mmHg
[2025-08-21 11:39] LABS: Abs Immature Grans 0.29 10^3/uL (0.0-0.06); HCT 37.3 % (40.0-50.0); HGB 13.0 g/dL (13.5-17.5); Immature Grans % 1.5 %; MCH 31.2 pg (27.0-33.0); MCHC 34.9 % (32.0-36.0); MCV 89 fL (80-95); MPV 10.5 fL (8.0-11.0); Platelet Count 124 10^3/uL (130-400); RBC 4.17 10^6/uL (4.36-5.78); RDW 13.6 % (11.8-14.1); RDW-SD 44.6 fL; WBC 18.88 10^3/uL (4.4-10.8)
[2025-08-21 11:55] LABS: Creatine Kinase 26 U/L (46-171); Troponin I 35 ng/L (<54)
[2025-08-21 11:56] LABS: ALT 13 U/L (10-49); AST 15 U/L (<34); Albumin 3.0 g/dL (3.2-5.0); Alkaline Phosphatase 40 U/L (46-116); Anion Gap 5.9 mmol/L (3-11); BUN 27 mg/dL (9-23); Bilirubin, Total 0.6 mg/dL (0.2-1.2); CO2 22.1 mmol/L (20.0-31.0); Calcium 8.1 mg/dL (8.3-10.6); Chloride 101 mmol/L (98-107); Glucose 102 mg/dL (74-106); Potassium 4.1 mmol/L (3.5-5.1); Sodium 129 mmol/L (136-145); Total Protein 5.1 g/dL (5.7-8.2)
[2025-08-21 11:58] LABS: COVID-19 PCR Negative (Negative); RSV PCR Negative (Negative)
[2025-08-21] MEDS: CEFEPIME 2 GM in Normal Saline 100 ML IVPB (12:02)
[2025-08-21 13:47] LABS: Troponin I 37 ng/L (<54)
[2025-08-21] MEDS: Omnipaque 350 MG/ML 100 ML BTL IJ (13:55)
[2025-08-21] MEDS: Normal Saline - Diluent 50 ML VIAL IJ (13:55)
[2025-08-21] MEDS: Normal Saline Flush 10 ML SYR IVP (13:56)
--- NOTE | 2025-08-21 13:57 | DI.CT_ITS ---
Exam(s) CT ABDOMEN PELVIS W EXAM: CT ABDOMEN PELVIS W CLINICAL HISTORY: Abdominal distention. TECHNIQUE: Imaging Protocol: Axial computed tomography images with coronal and sagittal reformatted images were created and reviewed CONTRAST MATERIAL: Intravenous: Omnipaque 350 Contrast volume:75 ml Oral: no COMPARISON: CT CT ABDOMEN PELVIS W from 09/05/2024 FINDINGS: ABDOMEN and PELVIS: Lung Bases: No acute findings. Small hiatal hernia. Liver: Normal density. No suspicious mass. Gallbladder and biliary tract: No radiodense calculus. No wall thickening or pericholecystic fluid. No biliary dilation. Pancreas: Normal density. No abnormal calcifications or inflammatory process. No evidence of mass. Spleen: Normal. Kidneys: Normal size, contour and axis. No radiodense stones. No obstructive uropathy. No suspicious masses seen. Mild nonspecific stranding in the perinephric fat. No findings to suggest pyelonephritis. Adrenal glands: No masses seen. Vasculature: Abdominal aorta non-dilated. Soft tissues: Small fat containing umbilical hernia. Bladder: Mild diffuse wall thickening. No calculi.No focal mass. Bowel: No obstruction. No bowel wall thickening. Appendix normal. Diverticulosis of the descending colon. No evidence of diverticulitis. Rectosigmoid anastomosis is unremarkable. Peritoneal cavity: No ascites. No focal collection. No mesenteric inflammatory response. No free air. Bones: Hardware in lower lumbar spine. Advanced degenerative changes. Mild scoliosis. Reproductive organs: Mildly enlarged prostate. Lymph nodes: No pathologically enlarged lymph nodes. IMPRESSION:: No acute abnormality in the abdomen or pelvis. RADIATION DOSE DELIVERED: Total DLP DATA REPOSITORY: All CT scans at this facility are submitted to the National Radiology Data Registry (NRDR) Dose Index Registry (DIR) with the [employer] (ACR). RADIATION OPTIMIZATION: All CT scans at this facility use at least one of these dose optimization techniques: automated exposure control; mA and/or kV adjustment per patient size (includes targeted exams where dose is matched to clinical indication); or iterative reconstruction.
[2025-08-21] MEDS: VANCOMYCIN/WATER (PEG) 2 GM/400 ML BAG IVPB (14:07)
[2025-08-21 15:10] LABS: Glucose Negative (Negative)
== END 2025-08-21 16:32 | disposition home or self-care (01) ==
PROVIDERS: Emergency Provider Emergency Medicine; PCP Family Medicine
DX: R53.1 Weakness (principal); R11.0 Nausea; M79.10 Myalgia, unspecified site
CPT/HCPCS: 36415; 80053; 82550; 82805; 87040; 87637; 87798; 93005; 96365; 96367; 99285; 71045; 74177; 81003; 83605; 84484; 85025; 86618; 93010; 99284; J0692; J3373; J3490

== ENCOUNTER 2025-08-24 08:26 | Outpatient (CLI) | payer MEDICARE, OTHER, SELFPAY ==
--- NOTE | 2025-08-24 12:38 | CER_ITS ---
Date of service: 08/24/25 Time of Service: 12:38 Cardiac Event Recorder Referring Provider:: Umesh Covarrubias Indications:: TIA Cardiac Event Note: This is a cardiac event monitor. Patient was monitored for 13 days and 20 hours Rhythm throughout was sinus with an average heart rate of 81. Minimum was 55, maximum 116 There were rare ventricular ectopic beats. There were 2 ventricular triplets There were very rare atrial premature beats. There were several brief self- limited atrial runs, longest of which was 7 beats in duration There was no atrial fibrillation, no high-grade AV block, no pauses greater than 3 seconds Symptoms were reported which correlated to sinus rhythm
== END 2025-08-24 08:27 | disposition home or self-care (01) ==
LOC: CARDOPNVT 08:26
PROVIDERS: PCP Family Medicine; Visit Provider Internal Medicine Cardiovascular Disease
DX: G45.9 Transient cerebral ischemic attack, unspecified (principal); I49.3 Ventricular premature depolarization; I49.1 Atrial premature depolarization
CPT/HCPCS: 93248

== ENCOUNTER 2025-08-29 15:44 | Outpatient (CLI) | payer MEDICARE, OTHER, SELFPAY ==
[2025-08-29 15:51] LABS: HCT 43.6 % (40.0-50.0); HGB 14.6 g/dL (13.5-17.5); MCH 31.3 pg (27.0-33.0); MCHC 33.5 % (32.0-36.0); MCV 93 fL (80-95); MPV 9.5 fL (8.0-11.0); Platelet Count 258 10^3/uL (130-400); RBC 4.67 10^6/uL (4.36-5.78); RDW 14.0 % (11.8-14.1); RDW-SD 48.4 fL; WBC 13.46 10^3/uL (4.4-10.8)
[2025-08-29 16:06] LABS: Immature Grans % 0.0 %
[2025-08-29 16:07] LABS: RBC Morphology Normal
[2025-08-29 16:46] LABS: C-Reactive Protein 0.64 mg/dL (<=0.50)
[2025-08-30 12:26] LABS: Lyme Ab w Rflx to Lyme Confirm Equivocal (Negative)
[2025-08-30 14:45] LABS: Lyme IgG Ab Negative (Negative)
[2025-09-01 14:15] LABS: B. miyamotoi PCR Negative (Negative); Babesia divergens/MO-1 Negative (Negative); Ehrlichia muris eauclairensis Negative (Negative)
== END 2025-08-29 15:45 | disposition home or self-care (01) ==
LOC: LBO 15:44
PROVIDERS: PCP Family Medicine; Visit Provider Family Medicine
DX: M19.90 Unspecified osteoarthritis, unspecified site (principal); D72.829 Elevated white blood cell count, unspecified; R79.82 Elevated C-reactive protein (CRP)
CPT/HCPCS: 36415; 86617; 87798; 85025; 86140; 86618